=== PATIENT | male | born 1945 | race Caucasian/White ===

== ENCOUNTER → 2020-10-06 01:51 | Outpatient (CLI) | payer OTHER, SELFPAY ==
[2020-10-06 20:12] LABS: SARS-CoV-2 RNA PCR Negative
== END ==
PROVIDERS: PCP Internal Medicine; Visit Provider Urology
DX: Z01.812 Encounter for preprocedural laboratory examination (principal); Z20.822 Contact with and (suspected) exposure to COVID-19
CPT/HCPCS: C9803; U0003; U0005

== ENCOUNTER 2020-10-06 08:19 | Outpatient (CLI) | payer OTHER, SELFPAY ==
--- NOTE | 2020-10-06 15:30 | ECG_ITS ---
Measurements Intervals [place] Rate: 61 P: 66 TN: 206 QRS: 42 QRSD: 114 T: 42 QT: 394 QTc: 399 Interpretive Statements SINUS RHYTHM DELAYED PRECORDIAL R/S TRANSITION MINIMAL Q WAVES- INFERIOR LEADS BASELINE ARTIFACT- I, III, AVR, AVL, AVF, V1 BORDERLINE ECG Electronically Signed On 10-06-2020 8:32:12 CDT by Robert Bautista D.O.
== END 2020-10-06 08:20 | disposition home or self-care (01) ==
PROVIDERS: PCP Internal Medicine; Visit Provider Urology
DX: Z01.818 Encounter for other preprocedural examination (principal); E78.00 Pure hypercholesterolemia, unspecified
CPT/HCPCS: 93005

== ENCOUNTER 2020-10-10 15:26 | Observation (INO) | payer OTHER, SELFPAY ==
--- NOTE | 2020-10-02 07:19 | PM.IMHP ---
H&P: HPI History of Present Illness Date/Time: 10/02/20 07:19 A 74-year-old gentleman with a longstanding history of prostatism. He is status post Urolift July 2017 with a transient response. Now, his obstructive in irritable voiding symptoms have returned and persist despite combination therapy with both tamsulosin and finasteride. After discussion of additional options, including ongoing medical therapy, other minimally invasive procedure such as laser prostatectomy and Rezum, he has elected for TURP. He is aware of the risk of this procedure including, but not limited to, postoperative hematuria, persistent voiding symptoms urinary incontinence and erectile dysfunction. Chief Complaint: Difficulty with urination Review of Systems Cardiovascular: Cardiovascular: Denies chest pain, Denies lightheadedness, Denies palpitations and Denies dyspnea Respiratory: Respiratory: Denies dyspnea Gastrointestinal: Gastrointestinal: Denies diarrhea, Denies nausea and Denies vomiting Genitourinary: Genitourinary: Denies hematuria and Denies dysuria Endocrine: Endocrine: Denies palpitations [facility] Social History Social History Smoking status: Former smoker Second hand tobacco smoke exposure: No Smoking end date: 07/11/98 Alcohol intake: current Substance use: never Meds Home Medications and Allergies Home Medications Medication Instructions Recorded Confirmed Type blood sugar diagnostic #10 each 07/10/19 05/20/20 History lancets #50 each 07/10/19 05/20/20 History sildenafil 100 mg tablet 100 mg PO DAILY PRN #6 tablet 07/31/19 05/20/20 Rx finasteride 5 mg tablet 5 mg PO DAILY #90 tablet 04/28/20 05/20/20 Rx simvastatin 40 mg tablet 40 mg PO DAILY #90 tablet 04/28/20 05/20/20 Rx tamsulosin 0.4 mg capsule 0.4 mg PO DAILY #90 cap 04/28/20 05/20/20 Rx Allergies Allergy/AdvReac Type Severity Reaction Status Date / Time No Known Allergies Allergy Verified 05/20/20 09:57 Exam Const: General: no acute distress Resp: Effort & Inspection: normal respiratory effort GI: Inspection: non-distended GI Palp: No abdominal tenderness and No Guarding due to palpation present (GI) Auscultation: normal bowel sounds Assessment and Plan Assessment and plan (1) BPH without urinary obstruction: Code(s): N40.0 - Benign prostatic hyperplasia without lower urinary tract symptoms Status: Acute Assessment and Plan: TURP
[2020-10-02 15:12] VITALS: BMI 27.3
[2020-10-09] VITALS (14 sets, daily range): BP systolic 94–133; BP diastolic 52–78; PULSE 63–84; RESP 10–25; TEMP 35.7–36.7; O2SAT 95–100; BMI 28.5
--- NOTE | 2020-10-09 06:55 | WPDHPUPDATE1 ---
History and Physical Update Update Date/Time: 10/09/20 06:55 History and Physical has been reviewed, including an updated exam of the patient. There are NO changes in the patient's condition. Risks, benefits, and alternatives have been discussed and questions answered. Patient agrees to proceed with procedure.
[2020-10-09] MEDS: LACTATED RINGERS 1,000 ML 30 ML IV CONT ×2 (07:59→10:53)
[2020-10-09 08:03] LABS: Glucose Point of Care 103 (65-105)
--- NOTE | 2020-10-09 08:13 | WPDANESEPPF ---
Anes - Initial Pre Proc Eval Procedure: Operation Date: 10/09/20 09:00 Proposed Procedures p Trans Urethral Resection Prostate - Karl Yoo MD Date/Time: 10/09/20 08:13 Surgeon: Karl Yoo MD Pre Op Diagnosis: BPH Patient Data Age: 74 Gender: M Height: 5 ft 9 in Weight: 84 kg Allergies Allergy/AdvReac Type Severity Reaction Status Date / Time No Known Allergies Allergy Verified 10/02/20 15:08 Home Medications Medication Instructions Recorded Confirmed Type blood sugar diagnostic #10 each 07/10/19 05/20/20 History lancets #50 each 07/10/19 05/20/20 History sildenafil 100 mg tablet 100 mg PO DAILY PRN #6 tablet 07/31/19 10/02/20 Rx finasteride 5 mg tablet 5 mg PO DAILY #90 tablet 04/28/20 10/02/20 Rx simvastatin 40 mg tablet 40 mg PO DAILY #90 tablet 04/28/20 10/02/20 Rx tamsulosin 0.4 mg capsule 0.4 mg PO DAILY #90 cap 04/28/20 10/02/20 Rx Laboratory Tests 10/09/20 07:57 POC Capillary Glucose 103 mg/dl mg/dl (65-105) Patient hx anesthesia problems: none Family hx anesthesia problems: none PMFSH Past Medical History Medical History (Updated 10/09/20 @ 08:00 by Michael Calvin MD) Prediabetes Type 2 diabetes mellitus without complications Social History Social History Smoking packs per day: 1 Smoking cigarettes per day: 20.0 Years smoked: 38 Smoking pack-years: 38.00 Smoking status: Former smoker Second hand tobacco smoke exposure: No Smoking end date: 07/11/98 Alcohol intake: current Drinks per week: 21 Substance use: never Living arrangements: with family Additional living arrangements comments: Spiritual care concerns: No Anes - Eval Final PreProcedure Day of Procedure 10/09/20 08:13 Patient weight: obese Heart: regular rate and rhythm Lungs: clear to auscultation Airway: Mallampati scale class II Neurological: alert and oriented Last oral intake: >/= 8 hours ASA classification: III Emergent: no Anesthetic plan: proceed Anesthesia type and monitoring: general LMA and standard monitoring Informed Consent: The patient's anesthetic plan and its attendant risks and benefits were discussed with the patient/family/POA. Questions were solicited and answers provided to the satisfaction of the patient/family/POA.
[2020-10-09] MEDS: ceFAZolin 2 GM/D5W 50 ML 2 GM/50 ML BAG IVPB (08:49)
[2020-10-09] MEDS: LIDOCAINE HCL 2% GEL UROJET 10 ML PKG MUCOUS MEM (09:03)
[2020-10-09 11:02] LABS: Glucose Point of Care 129 (65-105)
--- NOTE | 2020-10-09 11:13 | PM.PROC ---
Procedure Note - Detailed Date of procedure: 10/09/20 Pre-op diagnosis: BPH Post-op diagnosis: same Procedure performed: TURP Description of procedure: The patient was brought to the operative suite where he is prepped and draped in routine sterile fashion while in the dorsal lithotomy position after the uneventful induction of a general LMA anesthetic. A 27 Bangladeshi resectoscope sheath was placed into his bladder. He had no urethral strictures. The patient had trilobar hyperplasia with a large median lobe. The bladder itself was endoscopically normal, showing no mucosal hyperemia, intravesical neoplasm or foreign bodies. There was a single, orthotopic ureteral orifice bilaterally. These orifices were identified and preserved throughout the remainder of the procedure. Attention was first turned to resection of the median lobe. This resection was undertaken from the bladder neck to the verumontanum and carried out until the transverse fibers of the bladder neck were identified. The left lateral lobe was then resected starting at the 6 o'clock position, working counter clockwise to the 12 o'clock position. Again, resection was carried out from the bladder neck to the verumontanum until the capsular fibers of the prostate were identified. The right lateral lobe was resected in a similar fashion starting at the 6 o'clock position working clockwise to the 12 o'clock position and carried out until the capsular fibers of the prostate were identified. Apical tissue was then circumferentially resected. All chips were evacuated from the bladder using an Visiogen evacuator. Hemostasis was obtained with electric cautery. The ureteral orifices were again inspected and found to be without injury. Estimated blood loss throughout this procedure was 200cc. The patient was taken to recovery room having tolerated this well. Anesthesia: GLMA Surgeon: Karl Yoo MD Estimated blood loss (mL): 200 Drains: Yes (24F hematuria catheter) Packing: No Pathology: yes Complications: No immediate complications Condition: stable Disposition: PACU
--- NOTE | 2020-10-09 12:04 | SUR.PHASEI ---
Dr. Yoo asked RN to monitor him a little longer in PACU so he can see the CBI before taking him to his room.
--- NOTE | 2020-10-09 12:51 | ADMGEN ---
This patient, Almas Elias, was admitted to Medical Room 240-01. Patient/family oriented to hospital policies and general routines including ID bracelet, bed and alarms, visiting hours, pain management, procedures, bathroom and other care routines, personal items, smoking policy, room service/diet, and visiting hours. Information on how to activate the Rapid Response Team has been discussed. Patient/Family are encouraged to report perceived risks to care and to ask questions if they do not understand what they are told or what they should do.
[2020-10-09] MEDS: DEXTROSE 5%/LACTATED RINGERS 1,000 ML 125 ML IV CONT (13:04)
[2020-10-09] MEDS: DOCUSATE SODIUM 100 MG CAPSULE PO (16:54)
[2020-10-09] MEDS: HYDROcodone/acetaminophen (*CRX) 5-325 MG TABLET 1 TAB PO (21:05)
[2020-10-10 02:00] VITALS: BP 110/59; PULSE 73; RESP 20; TEMP 36.4; O2SAT 98
[2020-10-10 05:35] LABS: Hematocrit 27.8 % (42.0-52.0); Hemoglobin 9.1 g/dL (14.0-18.0)
[2020-10-10 06:00] VITALS: BP 106/60; PULSE 68; RESP 20; TEMP 36.1; O2SAT 98
[2020-10-10 06:00] LABS: Anion Gap 3 mmol/L (8-16); Blood Urea Nitrogen 12 mg/dL (9-20); Carbon Dioxide 28 mmol/L (22-30); Chloride 105 mmol/L (98-107); Estimated CRCL calculation 66 ml/min; Estimated Glomerular Filt Rate > 60; Glucose 122 mg/dL (75-110); Potassium 3.9 mmol/L (3.4-5.0); Sodium 136 mmol/L (137-145)
--- NOTE | 2020-10-10 06:28 | PC.NURSE ---
DR MCKINNON HERE, CBI CLAMPED OFF
--- NOTE | 2020-10-10 06:29 | WPDUROPN2 ---
Progress Note: A&P Assessment and Plan (1) BPH without urinary obstruction: Code(s): N40.0 - Benign prostatic hyperplasia without lower urinary tract symptoms Status: Acute Assessment and Plan: Doing well POD #1 TURP Stop CBI Possible voiding trial later today Subjective Subjective Date/Time Seen: 10/10/20 06:29 POD #1: TURP Comfortable, urine clear on slow CBI Review of Systems Cardiovascular: Cardiovascular: Denies chest pain, Denies lightheadedness, Denies palpitations and Denies dyspnea Respiratory: Respiratory: Denies dyspnea Gastrointestinal: Gastrointestinal: Denies diarrhea, Denies nausea and Denies vomiting Genitourinary: Genitourinary: Denies hematuria and Denies dysuria Endocrine: Endocrine: Denies palpitations Exam Const: General: no acute distress Resp: Effort & Inspection: normal respiratory effort GI: Inspection: non-distended GI Palp: No abdominal tenderness and No Guarding due to palpation present (GI) Auscultation: normal bowel sounds Urinary Catheter: Urinary Catheter: patent and draining and urine clear Objective Data Vital Signs Vital Signs: Vital Signs - 24 hr 10/09/20 07:00 10/09/20 10:53 10/09/20 11:05 Temperature 96.8 F L 97.3 F L Pulse Rate 63 78 72 Respiratory Rate 16 10 L 15 Blood Pressure 133/74 121/78 117/77 Pulse Oximetry 100 97 98 10/09/20 11:20 10/09/20 11:35 10/09/20 11:50 Temperature Pulse Rate 74 71 74 Respiratory Rate 24 H 25 H 18 Blood Pressure 113/73 111/66 107/65 Pulse Oximetry 95 96 97 10/09/20 12:05 10/09/20 12:20 10/09/20 12:45 Temperature 96.3 F L Pulse Rate 73 78 73 Respiratory Rate 20 20 16 Blood Pressure 104/67 103/66 94/56 L Pulse Oximetry 96 96 99 10/09/20 13:00 10/09/20 13:30 10/09/20 14:30 Temperature 96.5 F L 96.5 F L 96.8 F L Pulse Rate 78 80 63 Respiratory Rate 16 16 16 Blood Pressure 104/52 L 104/56 L 108/54 L Pulse Oximetry 98 100 99 10/09/20 18:00 10/09/20 22:00 10/10/20 02:00 Temperature 97.1 F L 98.1 F 97.5 F L Pulse Rate 83 84 73 Respiratory Rate 16 20 20 Blood Pressure 95/60 L 113/60 110/59 L Pulse Oximetry 97 99 98 Intake/Output Intake/Output: Intake & Output 10/07/20 10/08/20 10/09/20 10/10/20 23:59 23:59 23:59 23:59 Intake Total 2290 500 Output Total 98341 500 Balance -60090 0 Meds/Results Medications: Active Medications Generic Name Dose Route Start Last Admin Trade Name Freq PRN Reason Stop Dose Admin Hydrocodone Bitart/Acetaminophen 1 tab 10/09/20 12:36 10/09/20 21:05 Hydrocodone/Acetaminophen (*Crx) 5-325 Mg Tablet PO 1 tab Q4H PRN Administration Pain Rated 1-6 Cephalexin HCl 500 mg 10/10/20 09:00 Cephalexin 500 Mg Capsule PO QID MIGUELITO Docusate Sodium 100 mg 10/09/20 17:00 10/09/20 16:54 Docusate Sodium 100 Mg Capsule PO 100 mg BID MIGUELITO Administration Hyoscyamine 0.125 mg 10/09/20 12:36 Hyoscyamine Sulfate 0.125 Mg Tablet SUBLINGUAL Q6H PRN Bladder Spasm Morphine Sulfate 2 mg 10/09/20 12:36 Morphine Sulfate (*Crx) 2 Mg/Ml Inj IV PUSH Q2H PRN Pain Rated 7-10 Naloxone HCl 0.1 mg 10/09/20 12:36 Naloxone Hcl 0.4 Mg/Ml Vial IV PUSH Q2M PRN Opiate Reversal Ondansetron HCl 4 mg 10/09/20 12:36 Ondansetron Inj 4 Mg/2 Ml Vial IV PUSH Q12H PRN Nausea And Vomiting Simvastatin 40 mg 10/10/20 09:00 Simvastatin 20 Mg Tablet PO DAILY [facility] Labs Labs: Laboratory Results - last 24 hr 10/09/20 10/09/20 10/10/20 07:57 11:00 04:46 Hgb 9.1 L Hct 27.8 L Sodium Potassium Chloride Carbon Dioxide Anion Gap BUN Creatinine Estim Creat Clear Calc Estimated GFR Glucose POC Capillary Glucose 103 129 H Calcium 10/10/20 04:46 Hgb Hct Sodium 136 L Potassium 3.9 Chloride 105 Carbon Dioxide 28 Anion Gap 3 L BUN 12 Creatinine 0.80 Estim Creat Clear Calc 66 Estimated GFR > 60 G
--- NOTE | 2020-10-10 07:59 | WPDANESPN ---
Anes - Prog Note Post-Op Date/Time: 10/10/20 07:59 Cardiovascular status: normal Respiratory status: normal Airway patency: baseline Mental status: baseline Post-Op hydration status: normal Vital Signs: Last Vital Signs Temp 36.1 C L 10/10/20 06:00 Pulse 68 10/10/20 06:00 Resp 20 10/10/20 06:00 BP 106/60 10/10/20 06:00 Pulse Ox 98 10/10/20 06:00 Pain Score (VAS): 0 I/O: Intake & Output 10/09/20 10/09/20 10/10/20 15:59 23:59 07:59 Intake Total 900 1390 1300 Output Total 44494 2575 500 Balance -9350 -1185 800 Laboratory Tests 10/10/20 04:46 10/10/20 04:46 10/09/20 10/09/20 10/10/20 07:57 11:00 04:46 Hgb 9.1 L Hct 27.8 L Sodium Potassium Chloride Carbon Dioxide Anion Gap BUN Creatinine Estim Creat Clear Calc Estimated GFR Glucose POC Capillary Glucose 103 129 H Calcium 10/10/20 04:46 Hgb Hct Sodium 136 L Potassium 3.9 Chloride 105 Carbon Dioxide 28 Anion Gap 3 L BUN 12 Creatinine 0.80 Estim Creat Clear Calc 66 Estimated GFR > 60 Glucose 122 H POC Capillary Glucose Calcium 8.0 L Post-procedural complaints: none Patient Feedback: Patient satisfied with anesthetic care.
[2020-10-10] MEDS: CEPHALEXIN 500 MG CAPSULE PO ×4 (08:00→20:42)
[2020-10-10] MEDS: SIMVASTATIN 20 MG TABLET 40 MG PO (08:00)
[2020-10-10] MEDS: DOCUSATE SODIUM 100 MG CAPSULE PO (08:00)
[2020-10-10 10:00] VITALS: BP 106/57; PULSE 73; RESP 16; TEMP 36.1; O2SAT 96
[2020-10-10 14:00] VITALS: BP 103/59; PULSE 72; RESP 16; TEMP 36.2; O2SAT 98
[2020-10-10 18:00] VITALS: BP 110/60; PULSE 78; RESP 16; TEMP 36.2; O2SAT 100
[2020-10-10 22:00] VITALS: BP 111/58; PULSE 76; RESP 20; TEMP 36.7; O2SAT 99
[2020-10-11 02:00] VITALS: BP 101/55; PULSE 68; RESP 20; TEMP 36.4; O2SAT 98
[2020-10-11 06:00] VITALS: BP 118/58; PULSE 71; RESP 18; TEMP 36.7; O2SAT 97
[2020-10-11] MEDS: DOCUSATE SODIUM 100 MG CAPSULE PO (08:18)
[2020-10-11] MEDS: CEPHALEXIN 500 MG CAPSULE PO (08:18)
[2020-10-11] MEDS: SIMVASTATIN 20 MG TABLET 40 MG PO (08:18)
[2020-10-11 09:43] VITALS: BP 97/54; PULSE 73; RESP 16; TEMP 36.3; O2SAT 100
--- NOTE | 2020-10-21 07:31 | PM.DS ---
DS: Admitting Diagnosis Admitting Diagnosis Admitting Diagnosis: BPH DS: Discharge Diagnosis Discharge Diagnosis (1) BPH without urinary obstruction: Code(s): N40.0 - Benign prostatic hyperplasia without lower urinary tract symptoms Status: Acute DS: Summary Hospital Course Hospital Course: This patient with longstanding prostatism refractory for medical management was admitted on the morning of his planned TURP. The procedure was undertaken on that same day in an uneventful fashion. His post-operative course was, likewise, uneventful. On the evening of the procedure he was tolerating a diet. On POD#1 his urine pink so voiding trial was deferred until the next morning. The urine remained clear and, therefore, the catheter was removed late morning. The patient was observed for several hours, until he demonstrated he could void effectively without significant hematuria. He was discharged with careful instruction on limiting physical activity x2 weeks and plans to f/ in 2-3 weeks. At discharge he was comfortable and tolerating a diet. Time Spent with Patient Time attestation: Total time spent providing and/or coordinating discharge services: 15min. Exam Const: General: no acute distress Resp: Effort & Inspection: normal respiratory effort GI: Inspection: non-distended GI Palp: No abdominal tenderness and No Guarding due to palpation present (GI) Auscultation: normal bowel sounds DS: Data Data Completed and Pending Completed studies during hospitalization: Pending at discharge 10/09/20 09:16 Surgical [PTH] Routine Discharge Plan Discharge Attending physician on discharge: Karl Yoo Discharging Clinician: Karl Yoo Anticipated Discharge Date/Time: 10/11/20 11:00 Patient Disposition: Home, Self-Care Activity: may shower Diet: regular Discharge Instructions: Satat @0700, if urine clear: fill bladder with 250cc and remove. Discharge 0115-0932 Tuesday if voiding. 1) Activity: No lifting/straining >15lbs. x2 weeks. 2) Diet: Resume normal pre-admission diet. 3) Follow-up: 2-3 weeks / call office for appointment ([phone]). Contact refrigeration brazer/solderer doctor (Dr. Ziyad Vale) if unable to discharge, for any reason. Patient Instructions: Antibiotic Form Stand Alone Forms: General Discharge Information Follow-up/Referrals: Karl Yoo MD [Physician] - Discharge Medications: New hydrocodone-acetaminophen 5-325 mg tablet 1 - 2 tablet PO Q6H PRN (Reason: pain) Qty: 20 RF: 0 sulfamethoxazole-trimethoprim 800-160 mg tablet 1 tablet PO Q12H Qty: 6 RF: 0 docusate sodium [Colace] 100 mg capsule 100 mg PO DAILY Qty: 30 RF: 0 Continued sildenafil 100 mg tablet 100 mg PO DAILY PRN (Reason: sexual activity) Qty: 6 RF: 6 simvastatin 40 mg tablet 40 mg PO DAILY Qty: 90 RF: 4 Discontinued finasteride 5 mg tablet 5 mg PO DAILY Qty: 90 RF: 4 tamsulosin 0.4 mg capsule 0.4 mg PO DAILY Qty: 90 RF: 4 No Action (DME) Contour Test Strips Strip See Rx Instructions .ROUTE .MEDSUPPLY Qty: 10 RF: 0 (DME) lancets [Microlet Lancet] Misc See Rx Instructions .ROUTE .MEDSUPPLY Qty: 50 RF: 0 Date of admission: 10/10/20 15:26 Primary Care Provider: Almas Calvin Admitting Provider: Karl oYo Attending physician on admission: Karl Yoo Condition: Stable
== END 2020-10-11 11:00 | disposition home or self-care (01) ==
LOC: ANHSURGERY 15:27 → ANH2MED 15:27
PROVIDERS: Admitting Provider Urology; PCP Internal Medicine; Visit Provider Urology
PROC: 0VT08ZZ Resection of Prostate, Via Natural or Artificial Opening Endoscopic (ICD-10-PCS; CPT 52601; principal; 2020-10-09 09:00)
DX: N40.0 Benign prostatic hyperplasia without lower urinary tract symptoms (principal); Z87.891 Personal history of nicotine dependence
CPT/HCPCS: 52601; 36415; 80048; 85014; 85018; 88305; 88342; 93005; A9270; C1758; C1769; C1887; C9803; G0378; J0690; J1100; J2405; J2704; J3010; J7120; J7121; U0003; U0005

== ENCOUNTER 2020-10-27 10:31 | Outpatient (CLI) | payer OTHER, SELFPAY ==
--- NOTE | ~2020-10-27 | CT_ITS ---
EXAMINATION: CT abdomen pelvis w con DATE: 10/27/2020 10:59 INDICATION: Prostate cancer restaging TECHNIQUE: Computed tomography (CT) of the abdomen and pelvis was performed with 100 cc Omnipaque 350 intravenous contrast. Automated exposure control and iterative reconstruction technique were employe d. Exam dose: 545.97 mGy-cm total exam DLP. COMPARISON: 08/08/2015 CT abdomen pelvis FINDINGS: Calcified middle lobe pulmonary granuloma. No infiltrate or consolidation the lung bases. Normal heart size. No pericardial or pleural effusion. Small sliding hiatal hernia. The liver, gallbladder, bile ducts, spleen, pancreas, pancreatic duct, and adrenal glands and kidneys appear normal. There is extensive calcification of the abdominal aorta but no aneurysm. No intraperitoneal or retroperitoneal or pelvic lymphadenopathy or ascites. There is irregular prostate enlargement, irregularly impressing the base of the urinary bladder, whic h may be consistent with residual prostate carcinoma. Urinary bladder neoplasm is not excluded. There is diffuse moderate thickening of the urinary bladder wall, likely secondary to bladder outlet obstruction due to prostate enlargement. Diffuse idiopathic skeletal hyperostosis of the thoracic spine. Multilevel degenerative disc disease of the lumbar spine No suspicious osteolytic or osteoblastic lesions Bilateral hip osteoarthritis, greater on the right. IMPRESSION: Enlargement irregularity and prostate gland suggesting prostate cancer Diffuse thickening of the urinary bladder wall and irregularity at the bladder base, likely secondary to bladder outlet obstruction and prostate tumor; superimposed bladder neoplasm is not definitively excluded Small sliding hiatal hernia Reviewed, dictated and finalized at [facility]. Reviewed, dictated and finalized at location [facility]. IMPRESSION: Enlargement irregularity and prostate gland suggesting prostate ca ncer Diffuse thickening of the urinary bladder wall and irregularity at the bladder base, likely secondary to bladder outlet obstruction and prostate tumor; superi mposed bladder neoplasm is not definitively excluded Small sliding hiatal hernia
--- NOTE | ~2020-10-27 | NM_ITS ---
EXAMINATION: NM bone scan whole body DATE: 10/27/2020 13:58 INDICATION: Prostate cancer TECHNIQUE: 25 mCi Tc-99m HDP was administered intravenously. Delayed whole-body scintigrams were obt ained. COMPARISON: CT abdomen and pelvis dated 10/27/2020 FINDINGS: Typical distribution of mild likely degenerative joint centered uptake at the bilateral acromioclavic ular joints, elbows, bilateral hands and wrists and feet and ankles. 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 No other foci of suspicious bone uptake to sugg est metastatic disease. IMPRESSION: 1. Typical pattern of scattered mild likely degenerative joint centered uptake in the bilateral upper and lower extremities. No atypical foci of bone uptake to suggest metastatic disease. Reviewed, dictated and finalized at location [facility]. IMPRESSION: 1. Typical pattern of scattered mild likely degenerative joint centered uptake in the bilateral upper and lower extremities. No atypical foci of bone uptake t o suggest metastatic disease.
== END 2020-10-27 10:32 | disposition home or self-care (01) ==
PROVIDERS: PCP Internal Medicine; Visit Provider Urology
DX: C61 Malignant neoplasm of prostate (principal); K44.9 Diaphragmatic hernia without obstruction or gangrene
CPT/HCPCS: 74177; 78306; A9561; Q9967

== ENCOUNTER 2021-05-06 06:42 | Outpatient (CLI) | payer OTHER, SELFPAY ==
--- NOTE | ~2021-05-06 | MR_ITS ---
EXAMINATION: MR pelvis wo/w con INDICATION: Prostate cancer TECHNIQUE: 3D Axial T2 Cube, Axial 2D FIESTA, Coronal SSFSE ARC, Axial and Coronal 2D FIESTA FatSat, Axial T2 FS, Axial SSFSE BH ARC, Axial 3D DualEcho BH, Axial SSFSE-IR Jona, Axial DWI b=600, pre and d ynamic postcontrast Axial LAVA ARC, WATER:POST Cor LAVA-FLEX COMPARISON: 10/27/2020 CONTRAST: Multihance, 17 cc FINDINGS: The prostate is enlarged. There appears to be a 2.5 cm T2 hypointense nodule in the periphe ral zone of the prostate right of midline with associated restricted diffusion. This appears to abut the capsule of the prostate without extraprostatic extension. A central defect in the prostate likely reflects prior TURP. Spacer material is noted between the rectum and prostate. No pathologically enl arged pelvic lymph nodes are identified. The pelvic viscera are normal. IMPRESSION: 1. Abnormal signal intensity in the right peripheral zone of the prostate which may reflect patient's known prostate cancer. Reviewed, dictated and finalized at location [facility].
[2021-05-06 07:18] LABS: Estimated Glomerular Filt Rate > 60
== END 2021-05-06 06:43 | disposition home or self-care (01) ==
LOC: ANHIMG 06:43
PROVIDERS: PCP Internal Medicine; Visit Provider Radiology Radiation Oncology
DX: C61 Malignant neoplasm of prostate (principal)
CPT/HCPCS: 72197; A9577

== ENCOUNTER 2021-09-14 10:32 | Outpatient (CLI) | payer OTHER, SELFPAY ==
[2021-09-14 11:40] LABS: Prostate Specific Antigen 0.8 ng/mL (< OR = 4.0)
== END 2021-09-14 10:33 | disposition home or self-care (01) ==
LOC: ANHLAB 10:34
PROVIDERS: PCP Internal Medicine; Visit Provider Urology
DX: C61 Malignant neoplasm of prostate (principal)
CPT/HCPCS: 36415; 84153

== ENCOUNTER 2021-12-28 10:23 | Outpatient (CLI) | payer OTHER, SELFPAY ==
[2021-12-28 12:18] LABS: Prostate Specific Antigen 0.4 ng/mL (< OR = 4.0)
== END 2021-12-28 10:24 | disposition home or self-care (01) ==
PROVIDERS: PCP Internal Medicine; Visit Provider Urology
DX: C61 Malignant neoplasm of prostate (principal)
CPT/HCPCS: 36415; 84153

== ENCOUNTER → 2022-02-09 12:01 | Outpatient (REF) | payer OTHER, SELFPAY | LOC: ANHLAB 12:01 | PROVIDERS: PCP Family Medicine; Visit Provider Nurse Practitioner | DX: D49.2 Neoplasm of unspecified behavior of bone, soft tissue, and skin (principal) | CPT/HCPCS: 88305 ==

== ENCOUNTER 2022-04-09 10:40 | Outpatient (CLI) | payer OTHER, SELFPAY ==
[2022-04-09 11:48] LABS: Prostate Specific Antigen 0.3 ng/mL (< OR = 4.0)
== END 2022-04-09 10:41 | disposition home or self-care (01) ==
LOC: ANHLAB 10:43
PROVIDERS: PCP Family Medicine; Visit Provider Urology
DX: C61 Malignant neoplasm of prostate (principal)
CPT/HCPCS: 36415; 84153; G0103

== ENCOUNTER 2022-05-14 09:48 | Outpatient (CLI) | payer OTHER, SELFPAY ==
[2022-05-14 19:15] LABS: Basophils Percent Auto 0.4 % (0.2-1.2); Eosinophils Absolute Auto 0.2 K/mm3 (0-0.3); Hematocrit 40.8 % (42.0-52.0); Immature Granulocyte Absolute 0.02 K/mm3 (0.00-0.031); Immature Granulocyte Percent A 0.4 % (0-0.5); Lymphocytes Absolute Auto 0.67 K/mm3 (0.9-3.2); Lymphocytes Percent Auto 13.5 % (18.3-44.2); Mean Corpuscular HGB Conc 31.9 g/dl (32-36); Mean Corpuscular Volume 87.9 fl (80-100); Mean Platelet Volume 11.5 fl (7.4-10.4); Monocytes Absolute Auto 0.5 K/mm3 (0.1-0.6); Monocytes Percent Auto 10.1 % (2.6-8.5); Neutrophils Absolute Auto 3.6 K/mm3 (1.3-6.7); Neutrophils Percent Auto 72.6 % (45.5-73.1); Platelet Count Result 128 k/mm3 (150-375); Red Blood Count 4.64 M/mm3 (4.6-6.20)
[2022-05-14 19:33] LABS: Alanine Aminotransferase 49 U/L (6-50); Albumin Level 4.3 g/dL (3.5-5.1); Alkaline Phosphatase 74 U/L (38-126); Anion Gap 13 mmol/L (8-16); Aspartate Amino Transferase 42 U/L (17-59); Bilirubin,Total 0.4 mg/dL (0.2-1.3); Blood Urea Nitrogen 14 mg/dL (9-20); Carbon Dioxide 24 mmol/L (22-30); Chloride 102 mmol/L (98-107); Cholesterol 125 mg/dL (0-200); Estimated Glomerular Filt Rate > 60; Glucose 109 mg/dL (65-110); HDL Direct 35 mg/dL; Potassium 4.4 mmol/L (3.4-5.0); Sodium 139 mmol/L (137-145); Triglycerides 88 mg/dL (<150)
[2022-05-14 19:44] LABS: LDL Cholesterol Direct 61 mg/dL
[2022-05-14 20:20] LABS: Hemoglobin A1C 5.6 % (<5.7)
== END 2022-05-14 09:49 | disposition home or self-care (01) ==
LOC: ANHGOSHLAB 09:54
PROVIDERS: PCP Family Medicine; Visit Provider Family Medicine
DX: D64.9 Anemia, unspecified (principal); E78.5 Hyperlipidemia, unspecified; Z13.228 Encounter for screening for other metabolic disorders; R73.03 Prediabetes; Z12.11 Encounter for screening for malignant neoplasm of colon
CPT/HCPCS: 36415; 80053; 80061; 83036; 85025

== ENCOUNTER 2022-05-17 11:11 | Outpatient (NON) | payer OTHER, SELFPAY ==
[2022-05-17 19:36] LABS: IFOB Positive Control Positive; Immunochemical Fecal Occult Bl Positive (N)
== END 2022-05-17 11:12 | disposition home or self-care (01) ==
PROVIDERS: PCP Family Medicine; Visit Provider Family Medicine
DX: Z12.11 Encounter for screening for malignant neoplasm of colon (principal)
CPT/HCPCS: 82274

== ENCOUNTER → 2022-05-19 14:07 | Outpatient (CLI) | payer OTHER, SELFPAY ==
--- NOTE | ~2022-05-19 | DEXA_ITS ---
Bone Density Report Name: ANNE CRAIN Age: 76 Sex: Male Ethnicity: White Date of : 1945 Indication: screening for osteoporosis; height loss; cancer; Referring Provider: ALEJANDRA DUMONT Study: Bone densitometry was performed. Exam Date: May 19, 2022 Accession number: [id number] Bone Density: Region BMD T-score Z-score Classification AP Spine (L1-L4) 1.412 2.9 4.0 Normal Femoral Neck (Left) 0.873 -0.4 1.0 Normal Total Hip (Left) 1.145 0.7 1.7 Normal Femoral Neck (Right) 0.923 -0.1 1.4 Normal Total Hip (Right) 1.101 0.4 1.4 Normal Total Hip Mean 1.123 0.6 1.6 Normal World Health Organization criteria for BMD impression classify patients as: Normal (T-score at or above -1.0), Osteopenia (T-score between -1.0 and -2.5), or Osteoporosis (T-score at or below -2.5). 10-year Fracture Risk: FRAX not reported because: All T-scores for Spine Total, Hip Total, Femoral Neck at or above -1.0 Treated for osteoporosis Clinical Information Provided by Patient: Has 3 or more alcoholic drinks per day Is being treated for osteoporosis Has used the following medications: HRT (i.e. estrogen/hormone therapy), hormone therapy for prostate cancer Has the following medical conditions: Cancer Patient maximum height was 70 Does not regularly consume dairy products Drinks caffeinated beverages Impression: The patient has normal bone mass. The patient has risk factors, including: excessive alcohol use. Discussion: It is important to ask patients whether they are taking their medications and to encourage continued and appropriate compliance with their osteoporosis therapies to reduce fracture risk. It is also important to review their risk factors and encourage appropriate calcium and vitamin D intakes, exercise, fall prevention and other lifestyle measures. Follow-Up: Consider repeating this study in 2 years to reassess this patient's status, or sooner if there is some new clinical indication. Reported by: REAGAN on 05/19/2022 2:36:00 PM. Reviewed, dictated and finalized at location [facility]. JENNIFER
== END ==
PROVIDERS: PCP Family Medicine; Visit Provider Nurse Practitioner Adult Health
DX: M85.88 Other specified disorders of bone density and structure, other site (principal)
CPT/HCPCS: 77080

== ENCOUNTER 2022-06-07 07:00 | Outpatient (NON) | payer OTHER, SELFPAY | END 2022-06-07 07:01 | disposition home or self-care (01) | PROVIDERS: PCP Family Medicine; Visit Provider Nurse Practitioner | DX: L70.0 Acne vulgaris (principal) | CPT/HCPCS: 88305 ==

== ENCOUNTER 2022-06-24 00:16 | Day surgery (SDC) | payer OTHER, SELFPAY ==
[2022-06-11 15:15] VITALS: BMI 28.8
--- NOTE | 2022-06-24 09:07 | P.PNAN_ITS ---
Anes - Initial Pre Proc Eval Procedure: Operation Date: 06/24/22 10:15 Proposed Procedures p Colonoscopy - Ric Gomez MD Date/Time: 06/24/22 09:07 Surgeon: Ric Gomez MD Pre Op Diagnosis: hemoccult positive stool Patient Data Age: 76 Gender: M Height: 1.73 m Weight: 86 kg Allergies Allergy/AdvReac Type Severity Reaction Status Date / Time No Known Allergies Allergy Verified 06/24/22 09:12 Home Medications Medication Instructions Recorded Confirmed Type simvastatin 40 mg tablet 40 mg PO DAILY #90 tabs 07/29/21 06/11/22 Rx lancets (Microlet Lancet) #50 ea 05/26/22 Rx Patient hx anesthesia problems: none Family hx anesthesia problems: none Results Review: All pre-operative results and documents have been reviewed as part of the pre- operative evaluation. [facility] Past Medical History Medical History (Updated 06/24/22 @ 09:36 by Ric Gomez MD) Basal cell carcinoma BPH without urinary obstruction Osteoarthritis of knee, unspecified Other and unspecified hyperlipidemia Overweight Prediabetes Prostate cancer Type 2 diabetes mellitus without complications Uncomplicated alcohol dependence Social History Social History Smoking packs per day: 1 Smoking cigarettes per day: 20.0 Years smoked: 30 Smoking pack-years: 30.00 Smoking status: Former smoker Tobacco type: cigarettes Second hand tobacco smoke exposure: No Alcohol intake: current Drinks per week: 21 Alcohol use details: occasionally Substance use: never Substance use type: does not use Lack of Transportation: No Lack of Food: Never True Current Housing: I Have Housing Concerned About Future Housing: No Difficulty Paying Gas/Electric Bills: No Difficulty Paying for Meds: No Currently Unemployed: No Education: Decline to Answer Difficulty w/ Childcare or Family Care: No Living arrangements: with family Additional living arrangements comments: Spiritual care concerns: No Anes - Eval Final PreProcedure Day of Procedure 06/24/22 09:07 Patient weight: obese Heart: regular rate and rhythm Lungs: clear to auscultation Airway: Mallampati scale class II Neurological: alert and oriented Last oral intake: >/= 8 hours ASA classification: III Emergent: no Anesthetic plan: proceed Anesthesia type and monitoring: general GIVS and standard monitoring Results Review: All pre-operative results and documents have been reviewed as part of the pre-operative evaluation. Informed Consent: The patient's anesthetic plan and its attendant risks and benefits were discussed with the patient/family/POA. Questions were solicited and answers provided to the satisfaction of the patient/family/POA.
[2022-06-24 09:13] VITALS: BP 113/74; PULSE 71; RESP 18; TEMP 36.3; O2SAT 96
[2022-06-24] MEDS: LACTATED RINGERS 1,000 ML 150 ML IV CONT (09:25)
--- NOTE | 2022-06-24 09:35 | PM.HPGS ---
History of Present Illness History of Present Illness Consent: Risks, benefits, and alternatives have been discussed and questions answered. Patient agrees to proceed with procedure. Chief complaint: hemoccult positive stool Narrative: Almas Elias is a 76 year old male Referred for colonoscopy because of finding of occult blood in stool test. Patient denies any obvious blood in his stools. Patient reports his bowel habits are normal. He denies abdominal pain. He has had no bleeding. Patient reports 1 year ago was found to have prostate cancer which has now been treated. He did undergo radiation therapy for this. Review of Systems Review of Systems: Review of systems noncontributory. [facility] Past Medical History Medical History (Updated 06/24/22 @ 09:36 by Ric Gomez MD) Basal cell carcinoma BPH without urinary obstruction Osteoarthritis of knee, unspecified Other and unspecified hyperlipidemia Overweight Prediabetes Prostate cancer Type 2 diabetes mellitus without complications Uncomplicated alcohol dependence Social History Social History Smoking packs per day: 1 Smoking cigarettes per day: 20.0 Years smoked: 30 Smoking pack-years: 30.00 Smoking status: Former smoker Tobacco type: cigarettes Second hand tobacco smoke exposure: No Alcohol intake: current Drinks per week: 21 Alcohol use details: occasionally Substance use: never Substance use type: does not use Lack of Transportation: No Lack of Food: Never True Current Housing: I Have Housing Concerned About Future Housing: No Difficulty Paying Gas/Electric Bills: No Difficulty Paying for Meds: No Currently Unemployed: No Education: Decline to Answer Difficulty w/ Childcare or Family Care: No Living arrangements: with family Additional living arrangements comments: Spiritual care concerns: No Meds Home Medications and Allergies Home Medications Medication Instructions Recorded Confirmed Type simvastatin 40 mg tablet 40 mg PO DAILY #90 tabs 07/29/21 06/11/22 Rx lancets (Microlet Lancet) #50 ea 05/26/22 Rx Allergies Allergy/AdvReac Type Severity Reaction Status Date / Time No Known Allergies Allergy Verified 06/24/22 09:12 Vital Signs Vital Signs - 24 hr 06/24/22 09:13 Temperature 97.3 F L Pulse Rate 71 Respiratory Rate 18 Blood Pressure 113/74 Pulse Oximetry 96 Oxygen Delivery Room Air Exam Narrative: Physical exam reveals patient to be alert. Vital signs stable. HEENT exam is unremarkable. Patient is anicteric. Lungs are clear to auscultation and percussion. Heart is without murmur or extra sounds. Abdomen bowel sounds are present soft nontender with no organomegaly. Digital external rectal exam is normal. Assessment and Plan Assessment and plan (1) Occult blood in stools: Code(s): R19.5 - Other fecal abnormalities Status: Acute Assessment and Plan: Patient with finding of occult blood in stool sample. Plan for colonoscopy to evaluate more thoroughly. (2) Prostate cancer: Code(s): C61 - Malignant neoplasm of prostate Status: Acute Assessment and Plan: Patient has a history of prostate carcinoma for which she has received radiation therapy. This raises the possibility that radiation has irritated the colon. Further recommendations may be given after endoscopy.
[2022-06-24 10:23] VITALS: BP 120/72; PULSE 74; RESP 15; O2SAT 95
[2022-06-24 10:33] VITALS: BP 125/84; PULSE 69; RESP 20; O2SAT 97
[2022-06-24 10:43] VITALS: BP 140/74; PULSE 70; RESP 18; O2SAT 98
== END 2022-06-24 10:57 | disposition home or self-care (01) ==
PROVIDERS: PCP Family Medicine; Visit Provider Internal Medicine Gastroenterology
PROC: 0DJD8ZZ Inspection of Lower Intestinal Tract, Via Natural or Artificial Opening Endoscopic (ICD-10-PCS; CPT 45378; principal; 2022-06-24 10:15)
DX: R19.5 Other fecal abnormalities (principal); D12.0 Benign neoplasm of cecum; K64.8 Other hemorrhoids; Z85.46 Personal history of malignant neoplasm of prostate; Z92.3 Personal history of irradiation; E11.9 Type 2 diabetes mellitus without complications; Z87.891 Personal history of nicotine dependence
CPT/HCPCS: 45385; 88305; J2704; J7120

== ENCOUNTER 2022-07-23 10:45 | Outpatient (CLI) | payer OTHER, SELFPAY ==
[2022-07-23 18:01] LABS: Prostate Specific Antigen 0.2 ng/mL (< OR = 4.0)
[2022-07-30 11:23] LABS: Testosterone Total 8 ng/dL (250-1100)
== END 2022-07-23 10:46 | disposition home or self-care (01) ==
LOC: ANHGOSHLAB 10:47
PROVIDERS: PCP Family Medicine; Visit Provider Urology
DX: C61 Malignant neoplasm of prostate (principal)
CPT/HCPCS: 36415; 84153; 84403

== ENCOUNTER 2022-10-26 14:32 | Emergency (ER) | payer OTHER, SELFPAY ==
--- NOTE | ~2022-10-26 | XR_ITS ---
EXAMINATION: XR hand RT min 3V DATE: 10/26/2022 16:26 INDICATION: Right hand laceration TECHNIQUE: Posteroanterior, oblique and lateral views of the right hand were obtained. COMPARISON: None. FINDINGS: Diffuse osteopenia. Bone alignment is normal. No fracture. Polyarticular osteoarthritis, severe at th e first second and third metacarpophalangeal and second distal interphalangeal joints, moderate sever ity at the distal radioulnar, wrist, midcarpal, triscaphe, first carpometacarpal and remaining interp halangeal joints. Soft tissues are unremarkable with no soft tissue gas or radiopaque foreign bodies. IMPRESSION: 1. No acute osseous abnormality or radiopaque foreign bodies. 2. Moderate to severe polyarticular osteoarthritis throughout the right hand and wrist. Reviewed, dictated and finalized at location A. IMPRESSION: 1. No acute osseous abnormality or radiopaque foreign bodies. 2. Moderate to severe polyarticular osteoarthritis throughout the right hand an d wrist.
[2022-10-26 15:15] VITALS: BP 132/74; PULSE 73; RESP 16; TEMP 36.4; O2SAT 97
[2022-10-26] MEDS: TETANUS,DIPHTHERIA,AC PERTUSSIS ADULT (0.5 ML) BOOSTRIX IM (16:19)
--- NOTE | 2022-10-26 16:39 | ED.GENADULT ---
HPI - General Adult General Chief complaint: Skin/Abscess/Foreign Body Stated complaint: Right hand laceration Time Seen by Provider: 10/26/22 16:11 Source: patient Mode of arrival: ambulatory Limitations: no limitations History of Present Illness HPI narrative: This is a 76-year-old male presents the ED with chief complaint of a right hand injury. He was working on the ladder when he fell off and cut his hand on the ladder as it fell. Bleeding is controlled. Reports Tdap is not up-to-date. Denies any further site of pain or injury. Denies head injury or loss of consciousness. Related Data Allergies Allergy/AdvReac Type Severity Reaction Status Date / Time No Known Allergies Allergy Verified 10/26/22 15:18 Review of Systems Review of Systems: CONSTITUTIONAL: Denies fever, chills, or sweats. SKIN: Endorses skin wound. Denies rash or itching. MUSCULOSKELETAL: Denies back pain, joint pain, or myalgia. NEUROLOGIC: Denies headache, numbness, dizziness, or weakness. PSYCHIATRIC: Denies anxiety or depression. [facility] Past Medical History Medical History (Updated 10/26/22 @ 17:31 by Saleem Michael PA-C) Basal cell carcinoma BPH without urinary obstruction Osteoarthritis of knee, unspecified Other and unspecified hyperlipidemia Overweight Prediabetes Prostate cancer Type 2 diabetes mellitus without complications Uncomplicated alcohol dependence Social History Social History Smoking packs per day: 1 Smoking cigarettes per day: 20.0 Years smoked: 30 Smoking pack-years: 30.00 Smoking status: Former smoker Tobacco type: cigarettes Second hand tobacco smoke exposure: No Alcohol intake: current Drinks per week: 21 Alcohol use details: occasionally Substance use: never Substance use type: does not use Lack of Transportation: No Lack of Food: Never True Current Housing: I Have Housing Concerned About Future Housing: No Difficulty Paying Gas/Electric Bills: No Difficulty Paying for Meds: No Currently Unemployed: No Education: Decline to Answer Difficulty w/ Childcare or Family Care: No Living arrangements: with family Additional living arrangements comments: Spiritual care concerns: No Exam Narrative: GENERAL: Well-appearing, well-nourished, and in no acute distress. HEAD: Normocephalic, atraumatic. EYES: PERRLA and EOMI. ENT: Nares clear, no rhinorrhea or epistaxis. Mucous membranes moist. Oropharynx without tonsillar hypertrophy exudate or other lesions. NECK: Supple. No adenopathy or masses. CHEST: No respiratory distress. Clear to auscultation. No wheezes rales or rhonchi HEART: Regular rate and rhythm. No murmur heard. Normal peripheral pulses. ABDOMEN: Soft, nontender, nondistended, normal active bowel sounds. EXTREMITIES: Normal range of motion. No edema. SKIN: There is a 3 cm flap laceration to the palm of the right hypothenar eminence. No active bleeding. No bruising. He also has an abrasion to the posterior proximal right ring finger. No bruising. Skin exam is otherwise intact. Warm, dry, no rash. NEURO: Alert and oriented x3. No focal deficits. PSYCH: Normal mood and affect. Course Vital Signs Vital signs: Vital Signs Temperature 97.6 F 10/26/22 15:15 Pulse Rate 73 10/26/22 15:15 Respiratory Rate 16 10/26/22 15:15 Blood Pressure 132/74 10/26/22 15:15 Pulse Oximetry 97 10/26/22 15:15 Oxygen Delivery Room Air 10/26/22 15:15 Temperature 97.6 F 10/26/22 15:15 Pulse Rate 73 10/26/22 15:15 Respiratory Rate 16 10/26/22 15:15 Blood Pressure 132/74 10/26/22 15:15 Pulse Oximetry 97 10/26/22 15:15 Oxygen Delivery Room Air 10/26/22 15:15 Procedures Laceration Laceration 1: Date: 10/26/22 Time: 17:29 Site: hand Side (If applicable): right Size (cm): 3 Description: flap and irregular Depth: simple, si
== END 2022-10-26 17:49 | disposition home or self-care (01) ==
PROVIDERS: Emergency Provider Physician Assistant; PCP Family Medicine
DX: S61.411A Laceration without foreign body of right hand, initial encounter (principal); Z23 Encounter for immunization; E11.9 Type 2 diabetes mellitus without complications; E78.49 Other hyperlipidemia; N40.0 Benign prostatic hyperplasia without lower urinary tract symptoms; M17.9 Osteoarthritis of knee, unspecified; E66.3 Overweight; Z68.29 Body mass index [BMI] 29.0-29.9, adult; Z85.46 Personal history of malignant neoplasm of prostate; W11.XXXA Fall on and from ladder, initial encounter; W26.8XXA Contact with other sharp object(s), not elsewhere classified, initial encounter
CPT/HCPCS: 12002; 73130; 90471; 90715; 99283

== ENCOUNTER 2022-10-29 11:30 | Outpatient (CLI) | payer OTHER, SELFPAY ==
[2022-10-29 14:38] LABS: Prostate Specific Antigen 0.2 ng/mL (< OR = 4.0)
[2022-11-03 11:53] LABS: Testosterone Total 7 ng/dL (250-1100)
== END 2022-10-29 11:31 | disposition home or self-care (01) ==
LOC: ANHGOSHLAB 11:33
PROVIDERS: PCP Family Medicine; Visit Provider Urology
DX: C61 Malignant neoplasm of prostate (principal)
CPT/HCPCS: 36415; 84153; 84403

== ENCOUNTER 2022-12-21 09:00 | Outpatient (NON) | payer OTHER, SELFPAY | END 2022-12-21 09:01 | disposition home or self-care (01) | LOC: ANHLAB 12-22 16:16 | PROVIDERS: PCP Family Medicine; Visit Provider Nurse Practitioner | DX: L57.0 Actinic keratosis (principal) | CPT/HCPCS: 88305 ==

== ENCOUNTER 2023-03-22 08:00 | Outpatient (NON) | payer OTHER, SELFPAY | END 2023-03-22 08:01 | disposition home or self-care (01) | LOC: ANHLAB 03-23 12:19 | PROVIDERS: PCP Family Medicine; Visit Provider Nurse Practitioner | DX: C44.729 Squamous cell carcinoma of skin of left lower limb, including hip (principal); L82.1 Other seborrheic keratosis; D22.5 Melanocytic nevi of trunk | CPT/HCPCS: 88305 ==

== ENCOUNTER 2023-04-25 13:49 | Outpatient (NON) | payer OTHER, SELFPAY | END 2023-04-25 13:50 | disposition home or self-care (01) | LOC: ANHLAB 13:49 | PROVIDERS: PCP Family Medicine; Visit Provider Nurse Practitioner | DX: C44.92 Squamous cell carcinoma of skin, unspecified (principal) | CPT/HCPCS: 88305; 88331 ==

== ENCOUNTER 2023-06-14 08:13 | Outpatient (CLI) | payer OTHER, SELFPAY ==
[2023-06-14 19:37] LABS: Alanine Aminotransferase 33 U/L (6-50); Albumin Level 3.8 g/dL (3.5-5.1); Alkaline Phosphatase 90 U/L (38-126); Anion Gap 10 mmol/L (8-16); Aspartate Amino Transferase 31 U/L (17-59); Bilirubin,Total 0.5 mg/dL (0.2-1.3); Blood Urea Nitrogen 16 mg/dL (9-20); Calcium 9.3 mg/dL (8.4-10.2); Carbon Dioxide 26 mmol/L (22-30); Chloride 103 mmol/L (98-107); Cholesterol 114 mg/dL (0-200); Estimated Glomerular Filt Rate > 60; Glucose 125 mg/dL (65-110); HDL Direct 35 mg/dL; Potassium 4.6 mmol/L (3.4-5.0); Sodium 139 mmol/L (137-145); Triglycerides 93 mg/dL (<150)
[2023-06-14 19:48] LABS: LDL Cholesterol Direct 61 mg/dL
[2023-06-18 07:31] LABS: Testosterone Free 1.7 pg/mL (30.0-135.0); Testosterone Total 16 ng/dL (250-1100)
== END 2023-06-14 08:14 | disposition home or self-care (01) ==
PROVIDERS: PCP Family Medicine; Visit Provider Family Medicine
DX: E78.5 Hyperlipidemia, unspecified (principal); R53.83 Other fatigue; Z13.228 Encounter for screening for other metabolic disorders
CPT/HCPCS: 36415; 80053; 80061; 84402; 84403

== ENCOUNTER 2023-06-21 10:43 | Outpatient (CLI) | payer OTHER, SELFPAY ==
[2023-06-21 13:58] LABS: Hemoglobin A1C 5.9 % (<5.7)
== END 2023-06-21 10:44 | disposition home or self-care (01) ==
PROVIDERS: PCP Family Medicine; Visit Provider Family Medicine
DX: E11.9 Type 2 diabetes mellitus without complications (principal)
CPT/HCPCS: 36415; 83036

== ENCOUNTER 2024-07-30 16:12 | Outpatient (CLI) | payer OTHER, SELFPAY ==
--- NOTE | ~2024-07-30 | XR_ITS ---
CHEST RADIOGRAPH, PA AND LATERAL CLINICAL HISTORY: R05.3 - Chronic cough . COMPARISON: Reference is made to CT examination of the abdomen and pelvis dated 10/27/2020 TECHNIQUE: PA and lateral views of the chest. FINDINGS Large left-sided pleural effusion with dense consolidation of the anterior segment of the left upper lobe. Prominence of the right hilum is also noted. These findings are an interval change from 2020 examination, when the lungs were clear. IMPRESSION: Large left-sided pleural effusion with dense consolidation of the anterior segment of the left upper lobe. Prominence of the right hilum is also noted, an interval change from 2020 examination. Reviewed, dictated and finalized at location A. ORESIST PRINTER IMPRESSION: Large left-sided pleural effusion with dense consolidation of the anterior segm ent of the left upper lobe. Prominence of the right hilum is also noted, an interval change from 2020 exami [place].
== END 2024-07-30 16:13 | disposition home or self-care (01) ==
LOC: GOSHIMG 16:13
PROVIDERS: PCP Family Medicine; Visit Provider Family Medicine
DX: R91.8 Other nonspecific abnormal finding of lung field (principal); R05.3 Chronic cough; U09.9 Post COVID-19 condition, unspecified
CPT/HCPCS: 71046

== ENCOUNTER 2024-07-31 09:03 | Outpatient (CLI) | payer OTHER, SELFPAY ==
[2024-07-31 09:33] LABS: Basophils Percent Auto 0.3 % (0.2-1.2); Eosinophils Absolute Auto 0.1 K/mm3 (0-0.3); Hematocrit 37.2 % (42.0-52.0); Hemoglobin 11.2 g/dL (14.0-18.0); Immature Granulocyte Absolute 0.03 K/mm3 (0.00-0.031); Immature Granulocyte Percent A 0.5 % (0-0.5); Lymphocytes Absolute Auto 0.46 K/mm3 (0.9-3.2); Lymphocytes Percent Auto 6.9 % (18.3-44.2); Mean Corpuscular HGB Conc 30.1 g/dl (32-36); Mean Corpuscular Hemoglobin 24.6 pg (26-34); Mean Corpuscular Volume 81.8 fl (80-100); Mean Platelet Volume 7.9 fl (7.4-10.4); Monocytes Absolute Auto 0.5 K/mm3 (0.1-0.6); Monocytes Percent Auto 6.8 % (2.6-8.5); Neutrophils Absolute Auto 5.6 K/mm3 (1.3-6.7); Neutrophils Percent Auto 83.5 % (45.5-73.1); Platelet Count Result 305 k/mm3 (150-375); Red Blood Count 4.55 M/mm3 (4.6-6.20); Red Cell Distribution Width 17.1 % (11.5-14.5); White Blood Count 6.7 K/mm3 (4.5-10.0)
[2024-07-31 10:35] LABS: Prostate Specific Antigen 0.2 ng/mL (< OR = 4.0)
[2024-07-31 11:22] LABS: Alanine Aminotransferase 17 U/L (6-50); Albumin Level 3.8 g/dL (3.5-5.1); Alkaline Phosphatase 92 U/L (38-126); Anion Gap 9 mmol/L (4-12); Aspartate Amino Transferase 24 U/L (17-59); Bilirubin,Total 0.7 mg/dL (0.2-1.3); Blood Urea Nitrogen 15 mg/dL (9-20); Calcium 9.4 mg/dL (8.4-10.2); Carbon Dioxide 27 mmol/L (22-30); Chloride 101 mmol/L (98-107); Cholesterol 99 mg/dL (0-200); Estimated Glomerular Filt Rate > 60; Glucose 118 mg/dL (65-110); HDL Direct 33 mg/dL; LDL Cholesterol Direct 40 mg/dL; Potassium 4.5 mmol/L (3.4-5.0); Sodium 137 mmol/L (137-145); Triglycerides 70 mg/dL (<150)
[2024-07-31 11:28] LABS: Vitamin D 25 Hydroxy 25.5 ng/mL
[2024-07-31 12:23] LABS: Hemoglobin A1C 5.5 % (<5.7)
--- OUTSIDE RECORDS SUMMARY | 2024-08-02 16:35 | XMS_ITS | Referral Summary ---
Author Organization [facility] Address [address] [place] [address] Care Team Providers Care Alumni Coordinator Name Role Phone Almas Stapleton MD Unavailable [phone] Alejandro Kellogg DO Primary Care Provider [phone] Source Comments [facility],non-owned Affiliates and Associated Physician Practices is amultiple site organization consisting of ambulatory clinics and hospital sitesin [place], [place], [place] and [place]. This disclosure is being madepursuant to the Care Everywhere program and may not contain all information available regarding this patient. Last updated 18.[facility] Allergies Active Allergy Reactions Criticality Noted Date Comments Adhesive Sensitivity 07/22/2011 Rash, Medications * Be aware that medications may not be up to date on this document. Alwaysverify current medications with the patient. Medication Sig Dispensed Refills Start Date End Date Status metFORMIN (GLUCOPHAGE) 500 MG tablet Take 500 mg by mouth at bedtime. Active simvastatin (ZOCOR) 40 MG tablet Take 40 mg by mouth at bedtime. Active multivitamin daily (THERAGRAN) tablet Take 1 Tab by mouth daily with food. Active calcium-vitamin D (CALTRATE PLUS D) 600-200 MG-UNIT tablet Take 1 Tab by mouth once daily. Active Cyanocobalamin (VITAMIN B 12 PO) Take by mouth once daily. Active finasteride (PROSCAR) 5 MG tablet Take 5 mg by mouth once daily. Active tamsulosin CR 24hr (FLOMAX) 0.4 MG capsule Take 0.4 mg by mouth once daily. Take 30 minutes after a meal at the same time each day. Active celecoxib (CELEBREX) 200 MG capsule Take 1 Cap by mouth 2 times daily. 60 Cap 0 08/24/2012 Active hydrocodone-acetaminop hen (NORCO) 5-325 MG tablet Take 1-2 Tabs by mouth every 6 hours as needed for Pain. MUST LAST 3 WEEKS 50 Tab 0 10/16/2012 Active Active Problems Problem Noted Date Diagnosed Date Osteoarthrosis involving lower leg 06/21/2012 Overview (10/04/2015): 2015 IMO Updt Knee joint replacement by other means 11/05/2011 Immunizations Name Administration Dates Next Due INFLUENZA VACCINE 07/22/2011 PNEUMOCOCCAL PPSV23 09/04/2012 Social History Tobacco Use Types Packs/Day Years Used Date Smoking Tobacco: Former Cigarettes 1 25 0 07/11/1971 - 07/11/1996 Smokeless Tobacco: Never Alcohol Use Standard Drinks/Week Comments Yes 22.5 (1 standard drink = 0.6 oz pure alcohol) 2 drinks/day Sex and Gender Information Value Date Recorded Sex Assigned at Not on file Gender Identity Not on file Sexual Orientation Not on file Last Filed Vital Signs Vital Sign Reading Time Taken Comments Blood Pressure 117/74 09/04/2012 6: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 Pulse 78 09/04/2012 6: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 Temperature 36.9 ??C (98.4 ??F) 09/04/2012 6:06 AM CS T Respiratory Rate 18 09/04/2012 6: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 Oxygen Saturation 98% 09/04/2012 6: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 Inhaled Oxygen Concentration - - Weight 88.4 kg (194 lb 12.8 oz) 09/01/2012 7:04 AM MASSAGE THERAPY INSTRUCTOR Height 175.3 cm (5' 9 ) 09/01/2012 7:04 AM MASSAGE THERAPY INSTRUCTOR Body Mass Index 28.77 09/01/2012 7:04 AM MASSAGE THERAPY INSTRUCTOR Plan of Treatment Not on file Administered Medications Advance Directives Documents on File Type Date Recorded Patient Airline Manager Expl anation Adv Directive/Living Will/POA 08/16/2011 11:00 AM * FULL RESUSCITATION (Latest Code Status on File) Date Activated Date Inactivated Comments 09/01/2012 11:08 AM 09/04/2012 12:46 PM * FULL RESUSCITATION Date Activated Date Inactivated Comments 08/12/2011 1:57 PM 08/15/2011 11:27 PM Care Teams Alumni Coordinator Relationship Specialty Start Date End Date Alejandro Kellogg DO [address] [place] [id number] PCP - General 02/23/22 Almas Stapleton MD Orthopedic Surgery 09/01/11
--- OUTSIDE RECORDS SUMMARY | 2024-08-02 16:35 | XMS_ITS | Referral Summary ---
Author Organization [facility] Address [address] [place] [id number] Care Team Providers Care Core Mounter Name Role Phone Almas Calvin MD Primary Care Provider [phone] Allergies Active Allergy Reactions Criticality Noted Date Comments Adhesive Rash Medium 07/22/2011 Rash, Medications tamsulosin (FLOMAX) 0.4 mg extended release capsule 0.4 mg Acti ve simvastatin (ZOCOR) 40 mg tablet Take 40 mg by mouth nightly Active finasteride (PROSCAR) 5 mg tablet Take 5 mg by mouth daily Active celecoxib (CeleBREX) 200 mg capsule Take 200 mg by mouth 2 (two) times a day 08/24/2012 Active metFORMIN (GLUCOPHAGE) 500 mg tablet Take 500 mg by mouth nightly Active sildenafiL (VIAGRA) 100 mg tablet 06/16/2020 Active Active Problems Problem Noted Date Diagnosed Date Basal cell carcinoma of skin of other parts of f lynda 09/01/2020 Social History Tobacco Use Types Packs/Day Years Used Date Smoking Tobacco: Former Smokeless Tobacco: Never Personal Safety Answer Date Recorded Getting School Help Needed Not on file 09/23 Sex and Gender Information Value Date Recorded Sex Assigned at Not on file Legal 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
--- OUTSIDE RECORDS SUMMARY | 2024-08-02 16:35 | XMS_ITS | Patient Health Summary ---
Author Organization [facility] Address [address] [facility] [place] [address] Care Team Providers Care Php Lamp Developer Name Role Phone Anne Stapleton MD Unavailable [phone] Alejandro Kellogg DO Primary Care Provider Note from [facility],non-owned Affiliates and Associated Physician Practices is amultiple site organization consisting of ambulatory clinics and hospital sitesin [place], [place], [place] and [place]. This disclosure is being madepursuant to the Care Everywhere program and may not contain all information available regarding this patient. Last updated 18.[facility] Allergies * Adhesive Sensitivity(Rash,) Medications * Be aware that medications may not be up to date on this document. Alwaysverify current medications with the patient. * metFORMIN (GLUCOPHAGE) 500 MG tablet Take 500 mg by mouth at bedtime. * simvastatin (ZOCOR) 40 MG tablet Take 40 mg by mouth at bedtime. * multivitamin daily (THERAGRAN) tablet Take 1 Tab by mouth daily with food. * calcium-vitamin D (CALTRATE PLUS D) 600-200 MG-UNIT tablet Take 1 Tab by mouth once daily. * Cyanocobalamin (VITAMIN B 12 PO) Take by mouth once daily. * finasteride (PROSCAR) 5 MG tablet Take 5 mg by mouth once daily. * tamsulosin CR 24hr (FLOMAX) 0.4 MG capsule Take 0.4 mg by mouth once daily. Take 30 minutes after a meal at the same time each day. * celecoxib (CELEBREX) 200 MG capsule(Started 08/24/2012) Take 1 Cap by mouth 2 times daily. * hydrocodone-acetaminophen (NORCO) 5-325 MG tablet(Started 10/16/2012) Take 1-2 Tabs by mouth every 6 hours as needed for Pain. 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 Knee joint replacement by other means 11/05/2011 Immunizations * INFLUENZA VACCINE(Given 07/22/2011) * PNEUMOCOCCAL PPSV23(Given 09/04/2012) Social History Tobacco Use Types Packs/Day Years [...] Comments Blood Pressure 117/74 09/04/2012 6:06 AM AIR TRAFFIC CONTROLLER Pulse 78 09/04/2012 6:06 AM AIR TRAFFIC CONTROLLER Temperature 36.9 ??C (98.4 ??F) 09/04/2012 6:06 AM CS T Respiratory Rate 18 09/04/2012 6:06 AM AIR TRAFFIC CONTROLLER Oxygen Saturation 98% 09/04/2012 6:06 AM AIR TRAFFIC CONTROLLER Inhaled Oxygen Concentration - - Weight 88.4 kg (194 lb 12.8 oz) 09/01/2012 7:04 AM AIR TRAFFIC CONTROLLER Height 175.3 cm (5' 9 ) 09/01/2012 7:04 AM AIR TRAFFIC CONTROLLER Body Mass Index 28.77 09/01/2012 7:04 AM AIR TRAFFIC CONTROLLER Procedures * DERMATOPATHOLOGY(Performed 07/16/2014) * DERMATOPATHOLOGY(Performed 05/29/2014) * DERMATOPATHOLOGY(Performed 05/08/2014) * XR KNEE BILAT 3VW(Performed 10/12/2012) Performed for Osteoarthrosis, unspecified whether generalized or localized, lower leg * GLUCOSE - POINT OF CARE(Performed 09/04/2012) * GLUCOSE - POINT OF CARE(Performed 09/03/2012) * GLUCOSE - POINT OF CARE(Performed 09/03/2012) * GLUCOSE - POINT OF CARE(Performed 09/03/2012) * GLUCOSE - POINT OF CARE(Performed 09/03/2012) * HGB HCT PANEL(Performed 09/03/2012) * GLUCOSE - POINT OF CARE(Performed 09/02/2012) * GLUCOSE - POINT OF CARE(Performed 09/02/2012) * GLUCOSE - POINT OF CARE(Performed 09/02/2012) * GLUCOSE - POINT OF CARE(Performed 09/02/2012) * HGB HCT PANEL(Performed 09/02/2012) * GLUCOSE - POINT OF CARE(Performed 09/01/2012) * GLUCOSE - POINT OF CARE(Performed 09/01/2012) * GLUCOSE - POINT OF CARE(Performed 09/01/2012) * DERMATOPATHOLOGY(Performed 08/22/2012) * COMPREHENSIVE METABOLIC PANEL(Performed 08/07/2012) Performed for Other specified pre-operative examination * CBC W AUTO DIFFERENTIAL(Performed 08/07/2012) Performed for Other specified pre-operative examination * CULTURE MSSA/MRSA(Performed 08/07/2012) Performed for Other specified pre-operative examination * EKG 12-LEAD(Performed 08/07/2012) Performed for Other specified pre-operative examination * DERMATOPATHOLOGY(Performed 08/01/2012) * DERMATOPATHOLOGY(Performed 07/20/2012) * DERMATOPATHOLOGY(Performed 05/25/2012) * DERMATOPATHOLOGY(Performed 05/12/2012) * DERMATOPATHOLOGY(Performed 04/26/2012) * DERMATOPATHOLOGY(Performed 03/20/2012) * XR KNEE LEFT 3VW(Performed 09/20/2011) Performed for Osteoarthrosis, unspecified whether generalized or localized, lower leg * CARDIAC RHYTHM STRIP ORDER(Performed 08/16/2011) * IP CONSULT TO HOME HEALTH CARE(Performed 08/15/2011) * GLUCOSE - POINT OF CARE(Performed 08/15/2011) * GLUCOSE - POINT OF CARE(Performed 08/14/2011) * GLUCOSE - POINT OF CARE(Performed 08/14/2011) * GLUCOSE - POINT OF CARE(Performed 08/14/2011) * GLUCOSE - POINT OF CARE(Performed 08/14/2011) * HGB HCT PANEL(Performed 08/14/2011) * GLUCOSE - POINT OF CARE(Performed 08/13/2011) * GLUCOSE - POINT OF CARE(Performed 08/13/2011) * GLUCOSE - POINT OF CARE(Performed 08/13/2011) * GLUCOSE - POINT OF CARE(Performed 08/13/2011) * HGB HCT PANEL(Performed 08/13/2011) * GLUCOSE - POINT OF CARE(Performed 08/12/2011) * GLUCOSE - POINT OF CARE(Performed 08/12/2011) * IP CONSULT TO HOSPITALIST(Performed 08/12/2011) * GLUCOSE - POINT OF CARE(Performed 08/12/2011) * GLUCOSE - POINT OF CARE(Performed 08/12/2011) * CARDIAC EKG ORDER(Performed 07/24/2011) * COMPREHENSIVE METABOLIC PANEL(Performed 07/22/2011) Performed for Preoperative examination, unspecified * CBC W AUTO DIFFERENTIAL(Performed 07/22/2011) Performed for Preoperative examination, unspecified * CULTURE MSSA/MRSA(Performed 07/22/2011) Performed for Preoperative examination, unspecified Results * PATHOLOGY TISSUE FOR DERMATOLOGY (07/16/2014 12:00 AM AIR TRAFFIC CONTROLLER) Only the most recent of10 resultswithin the time period is included. Result CASE: [id number] PATIENT: ANNE ELIAS PATHOLOGIC DIAGNOSIS: Left neck: SEBORRHEIC KERATOSIS, IRRITATED CLINICAL DATA: SK / Nevus. GROSS DESCRIPTION: Received is one formalin filled container labeled with the patient's name and designated left neck. The specimen consists of a shave biopsy measuring 7x5x2 mm. Jar 0. MICROSCOPIC DESCRIPTION: There is acanthosis consisting of fairly uniform squamous cells with eosinophilic cytoplasm and squamous eddies. Electronically signed out by Earnestine Smith M.D. 07/17/2014 4:22:05PM [facility] Comment: Performed at: Dermatopathology Laboratory [facility] - Department of Dermatology [address] [place] [address] [place] [address] Phone number: [phone] FAX: [phone] 07/16/2014 07/17/2014 Mauricio Chapa LAB - PATHOLOGY/CYTO LOGY ORDERABLES [facility] [address] [place] [address]. [facility] [place] [address], [facility] [phone] * XR KNEE BILAT 3 VIEWS (10/12/2012 2:41 PM CDT) Anatomical Region Laterality Modality Lower Extremity Radiographic Aminah ging Narrative 10/12/2012 2:41 PM CDT Hanny Lopez, RT(R) ? 10/12/2012 ??2:41 PM SEE PROGRESS NOTES FOR FINAL RESULT Procedure Note Hanny Lopez, RT(R) - 10/12/2012 2:41 PM CDT SEE PROGRESS NOTES FOR FINAL RESULT Anne Stapleton MD DIAGNOSTIC IMAGING O RDERABLES * (ABNORMAL) GLUCOSE - POINT OF CARE (09/04/2012 7:10 AM AIR TRAFFIC CONTROLLER) Only the most recent of25 resultswithin the time period is included. Glucose WB/POC 137(H) 75 - 110 mg/dl [facility] BLOOD SPECIMEN / Unknown 09/04/2012 7:10 AM AIR TRAFFIC CONTROLLER 09/04/2012 12:21 PM AIR TRAFFIC CONTROLLER Anne Stapleton MD LAB - POINT OF CARE ORDERABLES Performing Organization Address [facility] de Phone Number [facility] [address] [place] [address] * (ABNORMAL) HGB HCT PANEL (09/03/2012 3:00 AM AIR TRAFFIC CONTROLLER) Only the most recent of4 resultswithin the time period is included. Hemoglobin 11.3(L) 12.0 - 17.6 gm/dL [facility] Hematocrit 34.0(L) 35.2 - 51.7 % [facility] Blood specimen (specimen) BLOOD SPECIMEN / Unknown 09/03/2012 3:00 AM AIR TRAFFIC CONTROLLER 09/03/2012 3:14 AM AIR TRAFFIC CONTROLLER Anne Stapleton MD LAB - HEMATOLOGY ORD ERABLES Performing Organization Address [facility] Co de Phone Number [facility] [address] [place] [address] * CULTURE MSSA/MRSA (08/07/2012 11:55 AM AIR TRAFFIC CONTROLLER) Only the most recent of2 resultswithin the time period is included. Result [facility] Comment: Final NO growth S.aureus/NO growth S.aureus (MRSA) Miscellaneous samples (specimen) SPECIMEN FROM NASAL FOSSAE / Unknown 08/07/2012 11:55 AM AIR TRAFFIC CONTROLLER 08/07/2012 12:14 PM AIR TRAFFIC CONTROLLER Narrative [facility] - 08/08/2012 7:21 PM AIR TRAFFIC CONTROLLER Performed By [facility];[address];[place] [address] Anne Stapleton MD LAB - MICROBIOLOGY O RDERABLES [facility] [address] [place] [address] * CBC W AUTO DIFFERENTIAL (08/07/2012 11:55 AM AIR TRAFFIC CONTROLLER) Only the most recent of2 resultswithin the time period is included. WBC 5.7 4.4 - 10.7 1000/mm3 [facility] RBC 4.97 3.80 - 5.40 10X6 [facility] Hemoglobin 14.1 12.0 - 17.6 gm/dL [facility] Hematocrit 41.5 35.2 - 51.7 % [facility] MCV 83.5 80.7 - 98.3 fl [facility] MCH 28.4 26.7 - 34.0 pg [facility] MCHC 34.0 30.8 - 35.9 gm/dL [facility] RDW 13.6 12.1 - 14.9 % [facility] Platelet Count 215 153 - 416 1000/mm3 [facility] MPV 9.7 9.4 - 12.9 fl [facility] Granulocytes % 55.8 44 - 73 % [facility] Immature Granulocytes % 0.2 0 - 1 % [facility] Lymphocytes % 34.6 20 - 43 % [facility] Monocytes % 7.1 5 - 13 % [facility] Eosinophils % 1.9 0 - 6 % [facility] Basophils % 0.4 0 - 2 % [facility] Granulocytes Absolute 3.17 2.01 - 7.14 [facility] Immature Granulocytes Absolute 0.01 0.00 - 0.06 [facility] Lymphocytes Absolute 1.96 1.07 - 3.94 [facility] Monocytes Absolute 0.40 0.26 - 1.07 [facility] Eosinophils Absolute 0.11 0.00 - 0.47 [facility] Basophils Absolute 0.02 0.00 - 0.08 [facility] Comment Manual Diff Not Indicated [facility] Blood specimen (specimen) BLOOD SPECIMEN / Unknown 08/07/2012 11:55 AM AIR TRAFFIC CONTROLLER 08/07/2012 12:13 PM AIR TRAFFIC CONTROLLER Anne Stapleton MD LAB - HEMATOLOGY ORD ERABLES Performing Organization Address [facility] de Phone Number [facility] [address] [place] [address] * (ABNORMAL) COMPREHENSIVE METABOLIC PANEL (08/07/2012 11:55 AM AIR TRAFFIC CONTROLLER) Only the most recent of2 resultswithin the time period is included. BUN 17 7.0 - 21.0 mg/dL [facility] Sodium 139 136 - 145 mmol/L [facility] Potassium 4.0 3.5 - 5.1 mmol/L [facility] Chloride 105 98.0 - 107.0 mmol/L [facility] Glucose 115(H) 74 - 106 mg/dL [facility] Creatinine 0.87 0.5 - 1.3 mg/dL [facility] AST 17 5 - 40 U/L [facility] Alkaline Phosphatase 58 38 - 126 U/L [facility] Calcium 9.2 8.5 - 10.1 mg/dL [facility] Bilirubin Total 0.5 0.2 - 1.0 mg/dL [facility] Albumin 4.2 3.4 - 5.0 gm/dL [facility] Protein Total 7.8 6.4 - 8.2 gm/dL [facility] CO2 29 22.0 - 30.0 mmol/L [facility] ALT 40 12 - 78 U/L [facility] eGFR by MDRD 87 mL/min/1.7 3m2 [facility] Anion Gap 5.0 5 - 15 mmol/L [facility] Blood specimen (specimen) BLOOD SPECIMEN / Unknown 08/07/2012 11:55 AM AIR TRAFFIC CONTROLLER 08/07/2012 12:13 PM AIR TRAFFIC CONTROLLER Anne Stapleton MD LAB - CHEMISTRY ORDMyke RODNEY Performing Organization Address [facility] Co de Phone Number [facility] [address] [place] [address] * EKG 12-LEAD (08/07/2012 11:50 AM AIR TRAFFIC CONTROLLER) Ventricular Rate 67 BPM [facility] Atrial Rate 67 BPM [facility] P-R Interval 178 ms [facility] QRS Duration ms 88 ms [facility] Q-T Interval ms 364 ms [facility] QTC Calculation (Bezet) 384 ms [facility] Calculated P [place] 55 degrees [facility] Calculated R [place] 43 degrees [facility] Calculated T [place] 52 degrees [facility] Interpretation EKG Normal sinus rhythm Normal ECG When compared with ECG of 22-JUL-2011 11:05, No significant change was found Confirmed by MD PERCY, CLEOPATRA ([id number]) on 08/07/2012 4:16:03 PM [facility] 08/07/2012 11:5 0 AM AIR TRAFFIC CONTROLLER 08/07/2012 4:16 PM AIR TRAFFIC CONTROLLER Narrative [facility] - 08/07/2012 4:18 PM AIR TRAFFIC CONTROLLER Procedure Note Document, Scanned - 08/07/2012 2:15 PM CST Transcriptions Document, Scanned - 08/07/2012 4:18 PM CST Anne Stapleton MD ECG ORDERABLES [facility] * XR KNEE 3 VW LEFT (09/20/2011 3:25 PM CDT) Anatomical Region Laterality Modality Lower Extremity Other Narrative 09/20/2011 3:25 PM CDT RT Barrett ? 09/20/2011 ??3:25 PM See progress notes for results Procedure Note Ely Villanueva, RT - 09/20/2011 3:25 PM CDT See progress notes for results Anne Stapleton MD DIAGNOSTIC IMAGING O RDERABLES * CARDIAC RHYTHM STRIP ORDER (08/16/2011 2:47 PM AIR TRAFFIC CONTROLLER) Narrative Transcriptions Document, Scanned - 08/16/2011 2:47 PM CST Scanned Document CARDIAC SERVICES ORD ERABLES * IP CONSULT TO HOME CARE (08/15/2011 12:16 PM AIR TRAFFIC CONTROLLER) Narrative Kenya Turner LPN - 08/15/2011 12:16 PM AIR TRAFFIC CONTROLLER Kenya Turner LPN ? 08/15/2011 12:16 PM Home care orders received. Per physician's request,[facility], , will follow upon discharge. ??All information faxed to [phone]. ??Thank you for this referral. Kenya Turner LPN, Social Science Teacher, Procedure Note Kenya Turner LPN - 08/15/2011 11:28 AM CST Home care orders received. Per physician's request,[facility],[phone], will follow upon discharge. All information faxed [phone]. Thank you for this referral. Kenya Turner LPN, Social Science Teacher, Anne Stapleton MD INPATIENT ANCILLARY CONSULT * IP CONSULT TO HOSPITALIST (08/12/2011 2:19 PM AIR TRAFFIC CONTROLLER) Narrative Colby Bear MD - 08/12/2011 2:19 PM AIR TRAFFIC CONTROLLER Colby Bear MD ? 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
--- OUTSIDE RECORDS SUMMARY | 2024-08-02 16:35 | XMS_ITS | Clinical Summary ---
Author Organization [facility] Address [address] [facility] [place] [address] Care Team Providers Care Grinding Room Inspector Name Role Phone Amlas Stapleton MD Unavailable [phone] Alejanrdo Kellogg DO Primary Care Provider [phone] Source Comments [facility],non-owned Affiliates and Associated Physician Practices is amultiple site organization consisting of ambulatory clinics and hospital sitesin [place], [place], [place] and [place]. This disclosure is being madepursuant to the Care Everywhere program and may not contain all information available regarding this patient. Last updated 18.[facility] Allergies Active Allergy Reactions Criticality Noted Date [...] Comments Blood Pressure 117/74 09/04/2012 6:06 AM GAS CONTROLLER Pulse 78 09/04/2012 6:06 AM GAS CONTROLLER Temperature 36.9 ??C (98.4 ??F) 09/04/2012 6:06 AM CS T Respiratory Rate 18 09/04/2012 6:06 AM GAS CONTROLLER Oxygen Saturation 98% 09/04/2012 6:06 AM GAS CONTROLLER Inhaled Oxygen Concentration - - Weight 88.4 kg (194 lb 12.8 oz) 09/01/2012 7:04 AM GAS CONTROLLER Height 175.3 cm (5' 9 ) 09/01/2012 7:04 AM GAS CONTROLLER Body Mass Index 28.77 09/01/2012 7:04 AM GAS CONTROLLER Plan of Treatment Health Maintenance Due Date Last Done Comments DTAP/TDAP/TD VACCINES (1 - Tdap) 11/19/1962 ZOSTER VACCINE (1 of 2) 11/19/1993 PNEUMOCOCCAL VACCINE 50+ (2 of 2 - PCV) 09/04/2013 09/04/2012 Respiratory Syncytial Virus (RSV) Vaccine Pt: or over 60 yrs (1 - 1-dose 75+ series) 11/19/2018 COVID-19 VACCINE (2023-2 5 season) 2024 INFLUENZA VACCINE (#1) 2024 07/22/2011 DEPRESSION SCREENING 07/11/2024 MEDICARE AWV ? CALENDAR YEAR 2024 HEPATITIS B VACCINE Aged Out No longe r eligible based on patient's age to complete this topic HIB VACCINE Aged Out No longer eligi ble based on patient's age to complete this topic HPV VACCINE Aged Out No longer eligi ble based on patient's age to complete this topic MENINGOCOCCAL (Group B) VACCINE Aged Out No longer eligible based on patient's age to complete this topic MENINGOCOCCAL VACCINE Aged Out No niurka john eligible based on patient's age to complete this topic Advance Directives Documents on File Type Date Recorded Patient Allied Health Instructor Expl anation Adv Directive/Living Will/POA 08/16/2011 11:00 AM * FULL RESUSCITATION (Latest Code Status on File) Date Activated Date Inactivated Comments 09/01/2012 11:08 AM 09/04/2012 12:46 PM * FULL RESUSCITATION Date Activated Date Inactivated Comments 08/12/2011 1:57 PM 08/15/2011 11:27 PM Care Teams Grinding Room Inspector Relationship Specialty Start Date End Date Alejandro Kellogg DO [address] [place] [phone] PCP - General 02/23/22 Almas Stapleton MD Orthopedic Surgery 09/01/11
--- OUTSIDE RECORDS SUMMARY | 2024-08-02 16:35 | XMS_ITS | Clinical Summary ---
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
[2024-08-03 10:48] LABS: Testosterone Total 29 ng/dL (250-1100)
== END 2024-07-31 09:04 | disposition home or self-care (01) ==
PROVIDERS: PCP Family Medicine; Referring Provider Family Medicine; Visit Provider Urology
DX: C61 Malignant neoplasm of prostate (principal); E55.9 Vitamin D deficiency, unspecified; E78.5 Hyperlipidemia, unspecified; R73.9 Hyperglycemia, unspecified; Z79.899 Other long term (current) drug therapy
CPT/HCPCS: 36415; 80053; 80061; 82306; 82607; 83036; 84153; 84403; 84443; 85025

== ENCOUNTER 2024-08-10 07:24 | Outpatient (CLI) | payer OTHER, SELFPAY ==
--- NOTE | ~2024-08-10 | US_ITS ---
EXAMINATION: US biopsy liver DATE: 08/10/2024 11:27 INDICATION: Liver mass TECHNIQUE: The procedure including the risks, benefits, and alternatives was discussed with both the patient and his , and informed consent was obtained. The patient was brought to the ultrasound department and placed in the supine position on the ultraso und table. The right upper quadrant was then prepped and draped in the standard sterile fashion. 1% lidocaine was then utilized without epinephrine for analgesia. A 17-gauge introducer was then advanced into the mass within the right lobe of the liver and the need le removed. Utilizing an 18-gauge biopsy device, multiple specimens were obtained and placed immediately into for evangelista. The biopsy device was then removed. Gelfoam slurry was utilized for hemostasis. The entry site was cleaned and dressed. There were no immediate complications. FINDINGS: Ultrasound images demonstrate the biopsy device directly into the abnormality within the ri ght lobe of the liver. IMPRESSION: Technically successful ultrasound-guided core biopsy of a morphologically suspicious lesion within th e right lobe of the liver, as detailed above. Pathology pending. Reviewed, dictated and finalized at location A. NTIFIC MANAGER IMPRESSION: Technically successful ultrasound-guided core biopsy of a morphologically suspi cious lesion within the right lobe of the liver, as detailed above. Pathology pending.
[2024-08-10 09:20] VITALS: BP 108/67; PULSE 77; RESP 18; TEMP 36.1; O2SAT 93
[2024-08-10 09:52] LABS: Mean Platelet Volume 8.1 fl (7.4-10.4); Platelet Count Result 326 k/mm3 (150-375)
[2024-08-10 10:30] LABS: INR 1.1; Prothrombin Time 14.9 Seconds (11.1-14.7)
[2024-08-10 11:19] VITALS: BP 110/57; PULSE 73; RESP 16; O2SAT 95
[2024-08-10 11:50] VITALS: BP 109/59; PULSE 73; RESP 16
[2024-08-10 12:20] VITALS: BP 117/61; PULSE 74; RESP 16
[2024-08-10 12:50] VITALS: BP 119/54; PULSE 78; RESP 16
[2024-08-10 13:20] VITALS: BP 106/55; PULSE 72
--- NOTE | 2024-08-10 14:21 | PM.OP ---
Procedure Note - Brief Procedure Note - Brief Date of procedure: 08/10/24 liver mass Post-op diagnosis: Same Procedure performed: US guided liver mass biopsy Surgeon: Akosua Hall MD Anesthesia: local Findings: sterile technique US guidance Multiple 18G specimens obtained for analysis. Gelfoam slurry for hemostasis No immed complications Description of procedure: as above Estimated blood loss (mL): 0.01 Pathology: Yes Complications: No immediate complications Condition: Stable Disposition: Same day
== END 2024-08-10 13:45 | disposition home or self-care (01) ==
PROVIDERS: PCP Family Medicine; Referring Provider Internal Medicine Hematology & Oncology; Visit Provider Radiology Diagnostic Radiology
PROC: BF45ZZZ Ultrasonography of Liver (ICD-10-PCS; CPT 47000; principal; 2024-08-10 09:30)
DX: Z01.812 Encounter for preprocedural laboratory examination (principal); C22.7 Other specified carcinomas of liver; K72.90 Hepatic failure, unspecified without coma; R16.0 Hepatomegaly, not elsewhere classified
CPT/HCPCS: 36415; 47000; 76942; 85049; 85610; 88307; 88342

== ENCOUNTER 2024-08-15 09:31 | Outpatient (CLI) | payer OTHER, SELFPAY ==
--- OUTSIDE RECORDS SUMMARY | 2024-08-13 09:27 | XMS_ITS | Clinical Summary ---
Author Organization [facility] Address [address] [facility] [address] Care Team Providers Care [place] Passer Name Role Phone Almas Stapleton MD Unavailable [phone] Alejandro Kellogg DO Primary Care Provider [phone] Source Comments [facility],non-owned Affiliates and Associated Physician Practices is amultiple site organization consisting of ambulatory clinics and hospital sitesin [place], [place], [place] and [place]. This disclosure is being madepursuant to the Care Everywhere program and may not contain all information available regarding this patient. Last updated 18.[facility] Allergies Active Allergy Reactions Criticality [...] Comments Blood Pressure 117/74 09/04/2012 6:06 AM LOG DECK TENDER Pulse 78 09/04/2012 6:06 AM LOG DECK TENDER Temperature 36.9 ??C (98.4 ??F) 09/04/2012 6:06 AM CS T Respiratory Rate 18 09/04/2012 6:06 AM LOG DECK TENDER Oxygen Saturation 98% 09/04/2012 6:06 AM LOG DECK TENDER Inhaled Oxygen Concentration - - Weight 88.4 kg (194 lb 12.8 oz) 09/01/2012 7:04 AM LOG DECK TENDER Height 175.3 cm (5' 9 ) 09/01/2012 7:04 AM LOG DECK TENDER Body Mass Index 28.77 09/01/2012 7:04 AM LOG DECK TENDER Plan of Treatment Health Maintenance Due Date [...] Documents on File Type Date 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
--- OUTSIDE RECORDS SUMMARY | 2024-08-13 09:27 | XMS_ITS | Referral Summary ---
Author Organization [facility] Address [address] [facility] [place] [address] Care Team Providers Care Office Receptionist Name Role Phone Almas Stapleton MD Unavailable [phone] Alejandro Kellogg DO Primary Care Provider [phone] Source Comments [facility],non-owned Affiliates and Associated Physician Practices is amultiple site organization consisting of ambulatory clinics and hospital sitesin [place], [place], [place] and [place]. This disclosure is being madepursuant to the Care Everywhere program and may not contain all information available regarding this patient. Last updated 18.[facility] Allergies Active Allergy Reactions Criticality Noted [...] Comments Blood Pressure 117/74 09/04/2012 6:06 AM TRANSIT PLANNING DIRECTOR Pulse 78 09/04/2012 6:06 AM TRANSIT PLANNING DIRECTOR Temperature 36.9 ??C (98.4 ??F) 09/04/2012 6:06 AM CS T Respiratory Rate 18 09/04/2012 6:06 AM TRANSIT PLANNING DIRECTOR Oxygen Saturation 98% 09/04/2012 6:06 AM TRANSIT PLANNING DIRECTOR Inhaled Oxygen Concentration - - Weight 88.4 kg (194 lb 12.8 oz) 09/01/2012 7:04 AM TRANSIT PLANNING DIRECTOR Height 175.3 cm (5' 9 ) 09/01/2012 7:04 AM TRANSIT PLANNING DIRECTOR Body Mass Index 28.77 09/01/2012 7:04 AM TRANSIT PLANNING DIRECTOR Plan of Treatment Not on file Administered Medications Advance Directives Documents on File Type Date Recorded 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
--- OUTSIDE RECORDS SUMMARY | 2024-08-13 09:27 | XMS_ITS | Referral Summary ---
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
--- OUTSIDE RECORDS SUMMARY | 2024-08-13 09:27 | XMS_ITS | Clinical Summary ---
Author Organization [facility] Denice Salgado Address [address] [place] [address] Care Team Providers Care Toll Patrolman Name Role Phone Chaka Colin MD Primary Care Provider Allergies No known active allergies Medications sildenafil citrate (SILDENAFIL, PULM.HYPERTENSIO N, ORAL) Take by mouth daily. Active Active Problems No known active problems Encounters Date Type Department Care Team Description 08/08/2024 11:30 AM BILLING AND INSURANCE COORDINATOR Office Visit [facility] Oncology and Hematology - [place] [address] [place] [address] Agustin Brown MD Liver mass (Primary Dx); Malignant neoplasm of upper lobe of left lung (CMS/HCC); Prostate cancer (CMS/HCC) from Last 3 Months Family History Medical History Relation Name Comments No Known Problems Brother No Known Problems Child 1 No Known Problems Child 2 No Known Problems Child 3 No Known Problems Father Cancer - Other Mother Diabetes Mother Melanoma Sister Relation Name Status Comments Brother Alive Child 1 Alive Child 2 Alive Child 3 Alive Father Mother Sister Alive Social History Tobacco Use Types Packs/Day Years Used Date Smoking Tobacco: Never Smokeless Tobacco: Never Tobacco Cessation:Counseling Given: Not Answered Alcohol Use Standard Drinks/Week Comments Yes 0 (1 standard drink = 0.6 oz pur e alcohol) Occasionally Sex and Gender Information Value Date Recorded Sex Assigned at Not on file Legal Sex Male 4:26 PM BILLING AND INSURANCE COORDINATOR Gender Identity Not on file Sexual Orientation Not on file Last Filed Vital Signs Vital Sign Reading Time Taken Comments Blood Pressure 112/68 08/08/2024 11:37 AM BILLING AND INSURANCE COORDINATOR Pulse 74 08/08/2024 11:37 AM BILLING AND INSURANCE COORDINATOR Temperature 36.2 ??C (97.2 ??F) 08/08/2024 11:[address] Respiratory Rate 15 08/08/2024 11:37 AM BILLING AND INSURANCE COORDINATOR Oxygen Saturation 92% 08/08/2024 11:37 AM BILLING AND INSURANCE COORDINATOR Inhaled Oxygen Concentration - - Weight 84.4 kg (186 lb) 08/08/2024 11:37 AM BILLING AND INSURANCE COORDINATOR Height 175.3 cm (5' 9 ) 08/08/2024 11:37 AM BILLING AND INSURANCE COORDINATOR Body Mass Index 27.47 08/08/2024 11:37 AM BILLING AND INSURANCE COORDINATOR Plan of Treatment Upcoming Encounters Date Type Department Care Team (Late st Contact Info) Description 08/17/2024 9:00 AM BILLING AND INSURANCE COORDINATOR Office Visit [facility] Oncology and Hematology - [place] [address] [facility] [address] [place] [address] Agustin Brown MD [address] [facility] [employer] [address] [place] [address] Health Maintenance Due Date Last Done Comments DIABETES ANNUAL FOOT EXAM 11/19/1961 DIABETES HBA1C Q 6 MONTHS 11/19/1961 DIABETES MICROALBUMIN ANNUAL SCREEN 11/19/1961 LDL CHOLESTEROL ANNUAL 11/19/1961 DTAP/TDAP/TD VACCINES (1 - Tdap) 11/19/1962 ZOSTER VACCINE (1 of 2) 11/19/1993 PNEUMOCOCCAL VACCINE 65+ YEA RS (2 of 2 - PCV) 09/04/2013 09/04/2012 RSV VACCINE (60+ or ) (1 - 1-dose 75+ series) 11/19/2018 INFLUENZA VACCINE (#1) 2024 DIABETES ANNUAL RETINAL EXAM 03/11/2024 03/11/2023, 03/11/2023 Insurance [facility] Care Teams Toll Patrolman Relationship Specialty Start Date End Date Chaka Colin MD [address] [place] [place] [address] PCP - General Family Practice 08/09/24
--- OUTSIDE RECORDS SUMMARY | 2024-08-13 09:27 | XMS_ITS | Patient Health Summary ---
Author Organization [facility] Address [address] [facility] [place] [address] Care Team Providers Care Preventive Maintenance Engineer Name Role Phone Anne Stapleton MD Unavailable [phone] Alejandro Kellogg DO Primary Care Provider [phone] [facility],non-owned Affiliates and Associated Physician Practices is amultiple site organization consisting of ambulatory clinics and hospital sitesin [place], [place], [place] and [place]. This disclosure is being madepursuant to the Care Everywhere program and may not contain all information available regarding this patient. Last updated 18.[facility] Allergies * Adhesive Sensitivity(Rash,) Medications * [...] Comments Blood Pressure 117/74 09/04/2012 6:06 AM LETTER OF CREDIT CLERK Pulse 78 09/04/2012 6:06 AM LETTER OF CREDIT CLERK Temperature 36.9 ??C (98.4 ??F) 09/04/2012 6:06 AM CS T Respiratory Rate 18 09/04/2012 6:06 AM LETTER OF CREDIT CLERK Oxygen Saturation 98% 09/04/2012 6:06 AM LETTER OF CREDIT CLERK Inhaled Oxygen Concentration - - Weight 88.4 kg (194 lb 12.8 oz) 09/01/2012 7:04 AM LETTER OF CREDIT CLERK Height 175.3 cm (5' 9 ) 09/01/2012 7:04 AM LETTER OF CREDIT CLERK Body Mass Index 28.77 09/01/2012 7:04 AM LETTER OF CREDIT CLERK Procedures * DERMATOPATHOLOGY(Performed 07/16/2014) * DERMATOPATHOLOGY(Performed 05/29/2014) [...] PATHOLOGY TISSUE FOR DERMATOLOGY (07/16/2014 12:00 AM LETTER OF CREDIT CLERK) Only the most recent of10 resultswithin the time period is included. Result CASE: [id number] PATIENT: ANEN ELIAS PATHOLOGIC DIAGNOSIS: Left neck: SEBORRHEIC KERATOSIS, [...] out by Earnestine Smith M.D. 07/17/2014 4:22:05PM [facility] Comment: Performed at: Dermatopathology Laboratory [facility] - Department of Dermatology [address] [place] [address] [place] [address] Phone number: [phone] FAX: [phone] 07/16/2014 07/17/2014 Mauricio Chapa LAB - PATHOLOGY/CYTO LOGY ORDERABLES [facility] [address] [place] [address]. [facility] [place] [address], [facility] [phone] * XR KNEE BILAT 3 VIEWS (10/12/2012 [...] - POINT OF CARE (09/04/2012 7:10 AM LETTER OF CREDIT CLERK) Only the most recent of25 resultswithin the time period is included. Glucose WB/POC 137(H) 75 - 110 mg/dl [facility] BLOOD SPECIMEN / Unknown 09/04/2012 7:10 AM LETTER OF CREDIT CLERK 09/04/2012 12:21 PM LETTER OF CREDIT CLERK Anne Stapleton MD LAB - POINT OF CARE ORDERABLES Performing Organization Address [facility] de Phone Number [facility] [address] [place] [address] * (ABNORMAL) HGB HCT PANEL (09/03/2012 3:00 AM LETTER OF CREDIT CLERK) Only the most recent of4 resultswithin the time period is included. Hemoglobin 11.3(L) 12.0 - 17.6 gm/dL [facility] Hematocrit 34.0(L) 35.2 - 51.7 % [facility] Blood specimen (specimen) BLOOD SPECIMEN / Unknown 09/03/2012 3:00 AM LETTER OF CREDIT CLERK 09/03/2012 3:14 AM LETTER OF CREDIT CLERK Anne Stapleton MD LAB - HEMATOLOGY ORD ERABLES Performing Organization Address [facility] Co de Phone Number [facility] [address] [place] [address] * CULTURE MSSA/MRSA (08/07/2012 11:55 AM LETTER OF CREDIT CLERK) Only the most recent of2 resultswithin the time period is included. Result [facility] Comment: Final NO growth S.aureus/NO growth S.aureus (MRSA) Miscellaneous samples (specimen) SPECIMEN FROM NASAL FOSSAE / Unknown 08/07/2012 11:55 AM LETTER OF CREDIT CLERK 08/07/2012 12:14 PM LETTER OF CREDIT CLERK Narrative [facility] - 08/08/2012 7:21 PM LETTER OF CREDIT CLERK Performed By [facility];[address];[place] [address] Anne Stapleton MD LAB - MICROBIOLOGY O RDERABLES [facility] [address] [place] [address] * CBC W AUTO DIFFERENTIAL (08/07/2012 11:55 AM LETTER OF CREDIT CLERK) Only the most recent of2 resultswithin the time period is included. WBC 5.7 4.4 - 10.7 1000/mm3 [facility] RBC 4.97 3.80 - 5.40 10X6 [facility] Hemoglobin 14.1 12.0 - 17.6 gm/dL [facility] Hematocrit 41.5 35.2 - 51.7 % [facility] MCV 83.5 80.7 - 98.3 fl [facility] MCH 28.4 26.7 - 34.0 pg [facility] MCHC 34.0 30.8 - 35.9 gm/dL [facility] RDW 13.6 12.1 - 14.9 % [facility] Platelet Count 215 153 - 416 1000/mm3 [facility] MPV 9.7 9.4 - 12.9 fl [facility] Granulocytes % 55.8 44 - 73 % [facility] Immature Granulocytes % 0.2 0 - 1 % [facility] Lymphocytes % 34.6 20 - 43 % [facility] Monocytes % 7.1 5 - 13 % [facility] Eosinophils % 1.9 0 - 6 % [facility] Basophils % 0.4 0 - 2 % [facility] Granulocytes Absolute 3.17 2.01 - 7.14 [facility] Immature Granulocytes Absolute 0.01 0.00 - 0.06 [facility] Lymphocytes Absolute 1.96 1.07 - 3.94 [facility] Monocytes Absolute 0.40 0.26 - 1.07 [facility] Eosinophils Absolute 0.11 0.00 - 0.47 [facility] Basophils Absolute 0.02 0.00 - 0.08 [facility] Comment Manual Diff Not Indicated [facility] Blood specimen (specimen) BLOOD SPECIMEN / Unknown 08/07/2012 11:55 AM LETTER OF CREDIT CLERK 08/07/2012 12:13 PM LETTER OF CREDIT CLERK Anne Stapleton MD LAB - HEMATOLOGY ORD ERABLES Performing Organization Address [facility] de Phone Number [facility] [address] [place] [address] * (ABNORMAL) COMPREHENSIVE METABOLIC PANEL (08/07/2012 11:55 AM LETTER OF CREDIT CLERK) Only the most recent of2 resultswithin the time period is included. BUN 17 7.0 - 21.0 mg/dL [facility] Sodium 139 136 - 145 mmol/L [facility] Potassium 4.0 3.5 - 5.1 mmol/L [facility] Chloride 105 98.0 - 107.0 mmol/L [facility] Glucose 115(H) 74 - 106 mg/dL [facility] Creatinine 0.87 0.5 - 1.3 mg/dL [facility] AST 17 5 - 40 U/L [facility] Alkaline Phosphatase 58 38 - 126 U/L [facility] Calcium 9.2 8.5 - 10.1 mg/dL [facility] Bilirubin Total 0.5 0.2 - 1.0 mg/dL [facility] Albumin 4.2 3.4 - 5.0 gm/dL [facility] Protein Total 7.8 6.4 - 8.2 gm/dL [facility] CO2 29 22.0 - 30.0 mmol/L [facility] ALT 40 12 - 78 U/L [facility] eGFR by MDRD 87 mL/min/1.7 3m2 [facility] Anion Gap 5.0 5 - 15 mmol/L [facility] Blood specimen (specimen) BLOOD SPECIMEN / Unknown 08/07/2012 11:55 AM LETTER OF CREDIT CLERK 08/07/2012 12:13 PM LETTER OF CREDIT CLERK Anne Stapleton MD LAB - CHEMISTRY ORDMyke RODNEY Performing Organization Address [facility] Co de Phone Number [facility] [address] [place] [address] * EKG 12-LEAD (08/07/2012 11:50 AM LETTER OF CREDIT CLERK) Ventricular Rate 67 BPM [facility] Atrial Rate 67 BPM [facility] P-R Interval 178 ms [facility] QRS Duration ms 88 ms [facility] Q-T Interval ms 364 ms [facility] QTC Calculation (Bezet) 384 ms [facility] Calculated P Exmore 55 degrees [facility] Calculated R Exmore 43 degrees [facility] Calculated T Exmore 52 degrees [facility] Interpretation EKG Normal sinus rhythm Normal ECG When compared with ECG of 22-JUL-2011 11:05, No significant change was found Confirmed by MD PERCY, CLEOPATRA ([id number]) on 08/07/2012 4:16:03 PM [facility] 08/07/2012 11:5 0 AM LETTER OF CREDIT CLERK 08/07/2012 4:16 PM LETTER OF CREDIT CLERK Narrative [facility] - 08/07/2012 4:18 PM LETTER OF CREDIT CLERK Procedure Note Document, Scanned - 08/07/2012 2:15 [...] CARDIAC RHYTHM STRIP ORDER (08/16/2011 2:47 PM LETTER OF CREDIT CLERK) Narrative Transcriptions Document, Scanned - 08/16/2011 2:47 PM CST Scanned Document CARDIAC SERVICES ORD ERABLES * IP CONSULT TO HOME CARE (08/15/2011 12:16 PM LETTER OF CREDIT CLERK) Narrative Kenya Turner LPN - 08/15/2011 12:16 PM LETTER OF CREDIT CLERK Kenya Turner LPN ? 08/15/2011 12:16 PM Home care orders received. Per physician's request,[facility], , will follow upon discharge. ??All information faxed to [phone]. ??Thank you for this referral. Kenya Turner LPN, Borough Coordinator, Procedure Note Kenya Turner LPN - 08/15/2011 11:28 AM CST Home care orders received. Per physician's request,[facility],[phone], will follow upon discharge. All information faxed [phone]. Thank you for this referral. Kenya Turner LPN, Borough Coordinator, Anne Stapleton MD INPATIENT ANCILLARY CONSULT * IP CONSULT TO HOSPITALIST (08/12/2011 2:19 PM LETTER OF CREDIT CLERK) Narrative Colby Bear MD - 08/12/2011 2:19 PM LETTER OF CREDIT CLERK Colby Bear MD ? 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, resume DVT ppx- lovenox-,monitor for hematuria Monitor for etoh withdrawal [id number] Procedure Note Colby Bear MD - 08/12/2011 2:11 PM CST Seen and examined Full note to follow A/p djd knee-s/p TKR, pt/ot/dvt ppx DM-cont home meds with ssi Dyslipidemia-cont statin BPH with microscopic hematuria-treated with proscar and flomax, resume DVT ppx- lovenox-,monitor for hematuria Monitor for etoh withdrawal [id number] Anne Stapleton MD INPATIENT CONSULT OR DERABLES * CARDIAC EKG ORDER (07/24/2011 12:19 PM LETTER OF CREDIT CLERK) Narrative Transcriptions Document, Scanned - 07/24/2011 12:19 PM CST Scanned Document CARDIAC SERVICES ORD [facility] Care Teams Preventive Maintenance Engineer Relationship Specialty Start Date End Date Alejandro Kellogg DO [address] [place] [phone] PCP - General 02/23/22 Anne Stapleton MD Orthopedic Surgery 09/01/11
--- OUTSIDE RECORDS SUMMARY | 2024-08-13 09:27 | XMS_ITS | Clinical Summary ---
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
--- NOTE | ~2024-08-15 | PE_ITS ---
EXAMINATION: PET skull to mid thigh DATE: 08/15/2024 12:00 INDICATION: Lung cancer TECHNIQUE: Blood glucose level was 107 mg/dL. 9.489 mCi of 18-fluorodeoxyglucose (18-FDG) was adminis tered i.v. Low dose computed tomography (CT) images were acquired from the base of the brain to the p roximal thighs for attenuation correction and anatomic localization. Positron emission tomography (PE T) images were acquired in the same distribution beginning 54 minutes after injection. Images includi ng fused PET/CT images were reconstructed in axial, coronal, and sagittal planes. Automated exposure control technique was employed. The dose-length product was 1076.68mGy-cm. COMPARISON: None FINDINGS: Head/neck: There is symmetric increased activity in the oral cavity, laryngeal muscles and ocular muscles withou t CT correlate, likely physiologic. No pathologically enlarged cervical lymphadenopathy or suspicious foci of increased FDG uptake in the visualized head or neck. Chest: Small posterior layering left pleural effusion. There are multiple FDG avid masses and focal groundgl ass opacities in both lungs which could be either malignant or infectious in etiology. The largest ma ss measuring 8.1 x 7.7 cm at the lingula demonstrates maximal SUV of 22. There is a large central carlo topenic region within the mass which could be related to central necrosis or potentially acute intrap arenchymal abscess formation. Heart size is normal. Atherosclerotic coronary artery calcification is. No pericardial effusion. Thoracic aorta is normal in caliber. 2.8 x 1.5 cm FDG avid prevascular lymp h node with maximal SUV of 11.1. There is additional approximately 2 cm FDG avid nodule with maximal SUV of 10.0 the left hilum which is difficult to distinguish from the adjacent vasculature and is unc lear whether this is an additional pulmonary nodule located within the lung or an enlarged left hilar lymph node. Abdomen/pelvis/proximal thighs: Therefore hypodense and FDG avid hepatic masses, the largest measuring 5.3 x 3.8 cm the right hepatic lobe with maximal SUV of 10.8. There is a central photopenic region within the mass which similarly consistent with either malignancy with central necrosis or abscess. Physiologic renal accumulation an d excretion of FDG activity in the kidneys, bladder and along portions of ureters. 2 mm nonobstructin g right renal stone. There is marked wall thickening of the decompressed bladder. There are metallic densities at the enlarged prostate which measures 4.9 x 4.8 cm which could represent either surgical clips are brachytherapy seeds. The gallbladder, pancreas, spleen and bilateral adrenal glands are nor mal. Mild uptake scattered throughout the bowels without radiologic correlate, also likely physiologi c. No other abnormal foci of increased FDG uptake or pathologically enlarged lymphadenopathy in the a bdomen, pelvis or proximal thighs. Musculoskeletal: There is diffuse mild uptake throughout the axial and appendicular skeleton without associated lytic or blastic bone lesions most likely related to marrow stimulation. IMPRESSION: 1. Multiple scattered bilateral FDG avid masses and groundglass opacities, few FDG avid hepatic dominique s and enlarged FDG avid mediastinal lymph node consistent with metastatic disease which could be due to either known prior prostate cancer or potentially primary lung cancer. 2. Small posterior layering left pleural effusion. Reviewed, dictated and finalized at location A. GENCY VEHICLE TECHNICIAN IMPRESSION: 1. Multiple scattered bilateral FDG avid masses and groundglass opacities, few FDG avid hepatic masses and enlarged FDG avid mediastinal lymph node consistent with metastatic disease which could be due to either known prior prostate canc er or potentially primary lung cancer. 2. Small posterior layering left pleural effusion.
[2024-08-15 10:10] LABS: Glucose Point of Care 107 mg/dl (65-105)
--- OUTSIDE RECORDS SUMMARY | 2024-08-15 10:13 | XMS_ITS | Clinical Summary ---
Author Organization [facility] Address [address] [facility] [place] [address] Care Team Providers Care Beater Engineer Helper Name Role Phone Almas Stapleton MD Unavailable [phone] Alejandro Kellogg DO Primary Care Provider [phone] Source Comments [facility],non-owned Affiliates and Associated Physician Practices is amultiple site organization consisting of ambulatory clinics and hospital sitesin [place], [place], [place] and [place]. This disclosure is being madepursuant to the Care Everywhere program and may not contain all information available regarding this patient. Last updated 18.[facility] Allergies Active Allergy Reactions Criticality Noted [...] Knee joint replacement by other means 11/05/2011 Encounters Date Type Department Care Team Description 08/13/[address] [facility] - Pathology Lab [address] [place] [address] Preston Rowland MD Illness, unspecified from Last 3 Months Immunizations Name Administration Dates Next Due INFLUENZA [...] Comments Blood Pressure 117/74 09/04/2012 6:06 AM DESULPHURING OPERATOR Pulse 78 09/04/2012 6:06 AM DESULPHURING OPERATOR Temperature 36.9 ??C (98.4 ??F) 09/04/2012 6:06 AM CS T Respiratory Rate 18 09/04/2012 6:06 AM DESULPHURING OPERATOR Oxygen Saturation 98% 09/04/2012 6:06 AM DESULPHURING OPERATOR Inhaled Oxygen Concentration - - Weight 88.4 kg (194 lb 12.8 oz) 09/01/2012 7:04 AM DESULPHURING OPERATOR Height 175.3 cm (5' 9 ) 09/01/2012 7:04 AM DESULPHURING OPERATOR Body Mass Index 28.77 09/01/2012 7:04 AM DESULPHURING OPERATOR Plan of Treatment Health Maintenance Due Date Last Done Comments DTAP/TDAP/TD VACCINES (1 - Tdap) 11/19/1962 ZOSTER VACCINE (1 of 2) 11/19/1993 PNEUMOCOCCAL VACCINE 50+ (2 of 2 - PCV) 09/04/2013 09/04/2012 Respiratory Syncytial Virus (RSV) Vaccine Pt: or over 60 yrs (1 - 1-dose 75+ series) 11/19/2018 COVID-19 VACCINE (1 - 2023-2 5 season) 2024 INFLUENZA VACCINE (#1) 2024 [...] Documents on File Type Date Recorded Patient Surfacer Operator Expl anation Adv Directive/Living Will/POA 08/16/2011 11:00 AM * FULL RESUSCITATION (Latest Code Status on File) Date Activated Date Inactivated Comments 09/01/2012 11:08 AM 09/04/2012 12:46 PM * FULL RESUSCITATION Date Activated Date Inactivated Comments 08/12/2011 1:57 PM 08/15/2011 11:27 PM Care Teams Beater Engineer Helper Relationship Specialty Start Date End Date Alejandro Kellogg DO [address] [place] [phone] PCP - General 02/23/22 Almas Stapleton MD Orthopedic Surgery 09/01/11
--- OUTSIDE RECORDS SUMMARY | 2024-08-15 10:13 | XMS_ITS | Encounter Summary ---
Author Organization [facility] Address [address] [place] [address] Care Team Providers Care Associate Brand Manager Name Role Phone Chaka Colin MD Primary Care Provider Encounter Details Date Type Department Care Team (Late st Contact Info) Description 08/14/2024 External Device Data [facility] ABSTRACTION Provider, Abstract NO ADDRESS ON FILE Social History Tobacco Use Types Packs/Day Years Used Date Smoking Tobacco: Never Smokeless Tobacco: Never Alcohol Use Standard Drinks/Week Comments Yes 0 (1 standard drink = 0.6 oz pur e alcohol) Occasionally Sex and Gender Information Value Date Recorded Sex Assigned at Not on file Legal Sex Male 4:26 PM WELFARE INTERVIEWER Gender Identity Not on file Sexual Orientation Not on file documented as of this encounter Plan of Treatment Upcoming Encounters Date Type Department Care Team (Late st Contact Info) Description 08/17/2024 9:00 AM WELFARE INTERVIEWER Office Visit [facility] Oncology and Hematology - [place] [address] [facility] [address] [place] [address] Agustin Brown MD [address] [facility] [address] [place] [address] documented as of this encounter Visit Diagnoses Not on filedocumented in this encounter Care Teams Associate Brand Manager Relationship Specialty Start Date End Date Chaka Colin MD [address] [place] [address] [place] [address] PCP - General Family Practice 08/09/24 documented as of this encounter
--- OUTSIDE RECORDS SUMMARY | 2024-08-15 10:13 | XMS_ITS | Clinical Summary ---
Author Organization [facility] Address [address] [place] [address] Care Team Providers Care Manufacturing Engineering Intern Name Role Phone Almas Calvin MD Primary Care Provider [phone] Allergies Active Allergy Reactions Criticality Noted Date [...] on file Legal Sex Male 11:28 AM THREAD MACHINE OPERATOR Gender Identity Not on file Sexual Orientation Not on file Obstetrics History Plan of Treatment Not on file Insurance [facility] Care Teams Manufacturing Engineering Intern Relationship Specialty Start Date End Date Almas Calvin MD [address] [place] [address] PCP - General Internal Medicine 09/12/18
--- OUTSIDE RECORDS SUMMARY | 2024-08-15 10:13 | XMS_ITS | Patient Health Summary ---
Author Organization [facility] Address [address] [facility] [place] [address] Care Team Providers Care Tip Tester Name Role Phone Anne Stapleton MD Unavailable [phone] Alejandro Kellogg DO Primary Care Provider [phone] Note from [facility],non-owned Affiliates and Associated Physician Practices is amultiple site organization consisting of ambulatory clinics and hospital sitesin [place], [place], [place] and [place]. This disclosure is being madepursuant to the Care Everywhere program and may not contain all information available regarding this patient. Last updated 18.[facility] Allergies * Adhesive Sensitivity(Rash,) Medications * Be [...] Comments Blood Pressure 117/74 09/04/2012 6:06 AM AUDITOR INTERNAL Pulse 78 09/04/2012 6:06 AM AUDITOR INTERNAL Temperature 36.9 ??C (98.4 ??F) 09/04/2012 6:06 AM CS T Respiratory Rate 18 09/04/2012 6:06 AM AUDITOR INTERNAL Oxygen Saturation 98% 09/04/2012 6:06 AM AUDITOR INTERNAL Inhaled Oxygen Concentration - - Weight 88.4 kg (194 lb 12.8 oz) 09/01/2012 7:04 AM AUDITOR INTERNAL Height 175.3 cm (5' 9 ) 09/01/2012 7:04 AM AUDITOR INTERNAL Body Mass Index 28.77 09/01/2012 7:04 AM AUDITOR INTERNAL Procedures * DERMATOPATHOLOGY(Performed 07/16/2014) * DERMATOPATHOLOGY(Performed 05/29/2014) [...] PATHOLOGY TISSUE FOR DERMATOLOGY (07/16/2014 12:00 AM AUDITOR INTERNAL) Only the most recent of10 resultswithin the time period is included. Result CASE: [id number] PATIENT: ANNE ELIAS PATHOLOGIC DIAGNOSIS: Left neck: [...] out by Earnestine Smith M.D. 07/17/2014 4:22:05PM [facility] Comment: Performed at: Dermatopathology Laboratory [facility] - Department of Dermatology [address] [place] [address] [place] [address] Phone number: [phone] FAX: [phone] 07/16/2014 07/17/2014 Mauricio Chapa LAB - PATHOLOGY/CYTO LOGY ORDERABLES [facility] [address] [place] [address]. [facility] [place] [address], [place] [phone] * XR KNEE BILAT 3 VIEWS (10/12/2012 [...] - POINT OF CARE (09/04/2012 7:10 AM AUDITOR INTERNAL) Only the most recent of25 resultswithin the time period is included. Glucose WB/POC 137(H) 75 - 110 mg/dl [facility] BLOOD SPECIMEN / Unknown 09/04/2012 7:10 AM AUDITOR INTERNAL 09/04/2012 12:21 PM AUDITOR INTERNAL Anne Stapleton MD LAB - POINT OF CARE ORDERABLES Performing Organization Address [facility] de Phone Number [facility] [address] [place] [address] * (ABNORMAL) HGB HCT PANEL (09/03/2012 3:00 AM AUDITOR INTERNAL) Only the most recent of4 resultswithin the time period is included. Hemoglobin 11.3(L) 12.0 - 17.6 gm/dL [facility] Hematocrit 34.0(L) 35.2 - 51.7 % [facility] Blood specimen (specimen) BLOOD SPECIMEN / Unknown 09/03/2012 3:00 AM AUDITOR INTERNAL 09/03/2012 3:14 AM AUDITOR INTERNAL Anne Stapleton MD LAB - HEMATOLOGY ORD ERABLES Performing Organization Address [facility] Co de Phone Number [facility] [address] [place] [address] * CULTURE MSSA/MRSA (08/07/2012 11:55 AM AUDITOR INTERNAL) Only the most recent of2 resultswithin the time period is included. Result [facility] Comment: Final NO growth S.aureus/NO growth S.aureus (MRSA) Miscellaneous samples (specimen) SPECIMEN FROM NASAL FOSSAE / Unknown 08/07/2012 11:55 AM AUDITOR INTERNAL 08/07/2012 12:14 PM AUDITOR INTERNAL Narrative [facility] - 08/08/2012 7:21 PM AUDITOR INTERNAL Performed By [facility];[address];[place] [address] Anne Stapleton MD LAB - MICROBIOLOGY O RDERABLES [facility] [address] [place] [address] * CBC W AUTO DIFFERENTIAL (08/07/2012 11:55 AM AUDITOR INTERNAL) Only the most recent of2 resultswithin the time period is included. WBC 5.7 4.4 - 10.7 1000/mm3 [facility] RBC 4.97 3.80 - 5.40 10X6 [facility] Hemoglobin 14.1 12.0 - 17.6 gm/dL [facility] Hematocrit 41.5 35.2 - 51.7 % [facility] MCV 83.5 80.7 - 98.3 fl [facility] MCH 28.4 26.7 - 34.0 pg [facility] MCHC 34.0 30.8 - 35.9 gm/dL [facility] RDW 13.6 12.1 - 14.9 % [facility] Platelet Count 215 153 - 416 1000/mm3 [facility] MPV 9.7 9.4 - 12.9 fl [facility] Granulocytes % 55.8 44 - 73 % [facility] Immature Granulocytes % 0.2 0 - 1 % [facility] Lymphocytes % 34.6 20 - 43 % [facility] Monocytes % 7.1 5 - 13 % [facility] Eosinophils % 1.9 0 - 6 % [facility] Basophils % 0.4 0 - 2 % [facility] Granulocytes Absolute 3.17 2.01 - 7.14 [facility] Immature Granulocytes Absolute 0.01 0.00 - 0.06 [facility] Lymphocytes Absolute 1.96 1.07 - 3.94 [facility] Monocytes Absolute 0.40 0.26 - 1.07 [facility] Eosinophils Absolute 0.11 0.00 - 0.47 [facility] Basophils Absolute 0.02 0.00 - 0.08 [facility] Comment Manual Diff Not Indicated [facility] Blood specimen (specimen) BLOOD SPECIMEN / Unknown 08/07/2012 11:55 AM AUDITOR INTERNAL 08/07/2012 12:13 PM AUDITOR INTERNAL Anne Stapleton MD LAB - HEMATOLOGY ORD ERABLES Performing Organization Address [facility] de Phone Number [facility] [address] [place] [address] * (ABNORMAL) COMPREHENSIVE METABOLIC PANEL (08/07/2012 11:55 AM AUDITOR INTERNAL) Only the most recent of2 resultswithin the time period is included. BUN 17 7.0 - 21.0 mg/dL [facility] Sodium 139 136 - 145 mmol/L [facility] Potassium 4.0 3.5 - 5.1 mmol/L [facility] Chloride 105 98.0 - 107.0 mmol/L [facility] Glucose 115(H) 74 - 106 mg/dL [facility] Creatinine 0.87 0.5 - 1.3 mg/dL [facility] AST 17 5 - 40 U/L [facility] Alkaline Phosphatase 58 38 - 126 U/L [facility] Calcium 9.2 8.5 - 10.1 mg/dL [facility] Bilirubin Total 0.5 0.2 - 1.0 mg/dL [facility] Albumin 4.2 3.4 - 5.0 gm/dL [facility] Protein Total 7.8 6.4 - 8.2 gm/dL [facility] CO2 29 22.0 - 30.0 mmol/L [facility] ALT 40 12 - 78 U/L [facility] eGFR by MDRD 87 mL/min/1.7 3m2 [facility] Anion Gap 5.0 5 - 15 mmol/L [facility] Blood specimen (specimen) BLOOD SPECIMEN / Unknown 08/07/2012 11:55 AM AUDITOR INTERNAL 08/07/2012 12:13 PM AUDITOR INTERNAL Anne Stapleton MD LAB - CHEMISTRY ORDMyke RODNEY Performing Organization Address [facility] Co de Phone Number [facility] [address] [place] [address] * EKG 12-LEAD (08/07/2012 11:50 AM AUDITOR INTERNAL) Ventricular Rate 67 BPM [facility] Atrial Rate 67 BPM [facility] P-R Interval 178 ms [facility] QRS Duration ms 88 ms [facility] Q-T Interval ms 364 ms [facility] QTC Calculation (Bezet) 384 ms [facility] Calculated P [place] 55 degrees [facility] Calculated R [place] 43 degrees [facility] Calculated T [place] 52 degrees [facility] Interpretation EKG Normal sinus rhythm Normal ECG When compared with ECG of 22-JUL-2011 11:05, No significant change was found Confirmed by MD PERCY, CLEOPATRA ([id number]) on 08/07/2012 4:16:03 PM [facility] 08/07/2012 11:5 0 AM AUDITOR INTERNAL 08/07/2012 4:16 PM AUDITOR INTERNAL Narrative [facility] - 08/07/2012 4:18 PM AUDITOR INTERNAL Procedure Note Document, Scanned - 08/07/2012 2:15 [...] CARDIAC RHYTHM STRIP ORDER (08/16/2011 2:47 PM AUDITOR INTERNAL) Narrative Transcriptions Document, Scanned - 08/16/2011 2:47 PM CST Scanned Document CARDIAC SERVICES ORD ERABLES * IP CONSULT TO HOME CARE (08/15/2011 12:16 PM AUDITOR INTERNAL) Narrative Kenya Turner LPN - 08/15/2011 12:16 PM AUDITOR INTERNAL Kenya Turner LPN ? 08/15/2011 12:16 PM Home care orders received. Per physician's request,[facility], , will follow upon discharge. ??All information faxed to [phone]. ??Thank you for this referral. Kenya Turner LPN, Cco, Procedure Note Kenya Turner LPN - 08/15/2011 11:28 AM CST Home care orders received. Per physician's request,[facility],[phone], will follow upon discharge. All information faxed [phone]. Thank you for this referral. Kenya Turner LPN, Cco, Anne Stapleton MD INPATIENT ANCILLARY CONSULT * IP CONSULT TO HOSPITALIST (08/12/2011 2:19 PM AUDITOR INTERNAL) Narrative Colby Bear MD - 08/12/2011 2:19 PM AUDITOR INTERNAL Colby Bear MD ? 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
--- OUTSIDE RECORDS SUMMARY | 2024-08-15 10:13 | XMS_ITS | Encounter Summary ---
Author Organization [facility] Address [address] [place] [address] Care Team Providers Care Bakery Pastry Internship Name Role Phone Chaka Colin MD Primary [...] on file Legal Sex Male 4:26 PM PROFESSOR OF VIOLIN Gender Identity Not on file Sexual Orientation Not on file documented as of this encounter Plan of Treatment Upcoming Encounters Date Type Department Care Team (Late st Contact Info) Description 08/17/2024 9:00 AM PROFESSOR OF VIOLIN Office Visit [facility] Oncology and Hematology - [place] [address] [facility] [address] [place] [address] Agustin Brown MD [address] [facility] [address] [place] [address] documented as of this encounter Visit Diagnoses Not on filedocumented in this encounter Care Teams Bakery Pastry Internship Relationship Specialty Start Date End Date Chaka Colin MD [address] [place] [address] [place] [address] PCP - General Family Practice 08/09/24 documented as of this encounter
--- OUTSIDE RECORDS SUMMARY | 2024-08-15 10:13 | XMS_ITS | Clinical Summary ---
Author Organization [facility] Address [address] [place] [address] Care Team Providers Care Junior Software Developer Name Role Phone Chaka Colin MD Primary Care Provider Allergies No known active allergies Medications sildenafil citrate (SILDENAFIL, PULM.HYPERTENSIO N, ORAL) Take by mouth daily. Active Active Problems No known active problems Encounters Date Type Department Care Team Description 08/14/2024 External Device Data STL ABSTRACTION Provider, Abstract 08/14/2024 External Device Data STL ABSTRACTION Provider, Abstract 08/14/2024 External Device Data STL ABSTRACTION Provider, Abstract 08/08/2024 11:30 AM MUSICAL STRING MAKER Office Visit [facility] Oncology and Hematology - [place] [address] [address] Agustin Brown MD Liver mass (Primary [...] on file Legal Sex Male 4:26 PM MUSICAL STRING MAKER Gender Identity Not on file Sexual Orientation Not on file Last Filed Vital Signs Vital Sign Reading Time Taken Comments Blood Pressure 112/68 08/08/2024 11:37 AM MUSICAL STRING MAKER Pulse 74 08/08/2024 11:37 AM MUSICAL STRING MAKER Temperature 36.2 ??C (97.2 ??F) 08/08/2024 11:[address] Respiratory Rate 15 08/08/2024 11:37 AM MUSICAL STRING MAKER Oxygen Saturation 92% 08/08/2024 11:37 AM MUSICAL STRING MAKER Inhaled Oxygen Concentration - - Weight 84.4 kg (186 lb) 08/08/2024 11:37 AM MUSICAL STRING MAKER Height 175.3 cm (5' 9 ) 08/08/2024 11:37 AM MUSICAL STRING MAKER Body Mass Index 27.47 08/08/2024 11:37 AM MUSICAL STRING MAKER Plan of Treatment Upcoming Encounters Date Type Department Care Team (Late st Contact Info) Description 08/17/2024 9:00 AM MUSICAL STRING MAKER Office Visit [facility] Oncology and Hematology [facility] [address] [facility] [address] [place] [address] Agustin Brown MD [address] [facility] [address] [place] [address] Health Maintenance Due Date Last [...] DIABETES ANNUAL RETINAL EXAM 03/11/2024 03/11/2023, 03/11/2023 [place] ([place]) Prev entative Visit/Annual Wellness Visit 07/11/2024 Insurance [facility] Care Teams Junior Software Developer Relationship Specialty Start Date End Date Chaka Colin MD [address] [facility] [place] [address] PCP - General Family Practice 08/09/24
--- OUTSIDE RECORDS SUMMARY | 2024-08-15 10:13 | XMS_ITS | Referral Summary ---
Author Organization [facility] Address [address] [facility] [place] [address] Care Team Providers Care Electrode Turner And Finisher Name Role Phone Almas Stapleton MD Unavailable [phone] Alejandro Kellogg DO Primary Care Provider [phone] Source Comments [facility],non-owned Affiliates and Associated Physician Practices is amultiple site organization consisting of ambulatory clinics and hospital sitesin [place], [place], [place] and [place]. This disclosure is being madepursuant to the Care Everywhere program and may not contain all information available regarding this patient. Last updated 18.[facility] Encounters Date Type Department Care Team Description 08/13/2024 Lab Requisition [facility] - Pathology Lab [address] [place] [address] Preston Rowland MD Illness, unspecified from Last 3 Months Allergies Active Allergy Reactions Criticality Noted Date [...] Comments Blood Pressure 117/74 09/04/2012 6:06 AM GRAPHICS COORDINATOR Pulse 78 09/04/2012 6:06 AM GRAPHICS COORDINATOR Temperature 36.9 ??C (98.4 ??F) 09/04/2012 6:06 AM CS T Respiratory Rate 18 09/04/2012 6:06 AM GRAPHICS COORDINATOR Oxygen Saturation 98% 09/04/2012 6:06 AM GRAPHICS COORDINATOR Inhaled Oxygen Concentration - - Weight 88.4 kg (194 lb 12.8 oz) 09/01/2012 7:04 AM GRAPHICS COORDINATOR Height 175.3 cm (5' 9 ) 09/01/2012 7:04 AM GRAPHICS COORDINATOR Body Mass Index 28.77 09/01/2012 7:04 AM GRAPHICS COORDINATOR Plan of Treatment Not on file Administered Medications Advance Directives Documents on File Type Date Recorded 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
--- OUTSIDE RECORDS SUMMARY | 2024-08-15 10:13 | XMS_ITS | Referral Summary ---
Author Organization [facility] Address [address] [place] [address] Care Team Providers Care Band Nailer Name Role Phone Almas Calvin MD Primary Care Provider [phone] Allergies Active Allergy Reactions Criticality Noted Date [...] on file Legal Sex Male 11:28 AM GAME MASTER Gender Identity Not on file Sexual Orientation Not on file Plan of Treatment Not on file Insurance Robert PONCE CONNIE Pelletier [id number] [facility] Care Teams Band Nailer Relationship Specialty Start Date End Date Almas Calvin MD [address] [place] [address] PCP - General Internal Medicine 09/12/18
--- OUTSIDE RECORDS SUMMARY | 2024-08-15 10:13 | XMS_ITS | Encounter Summary ---
Author Organization [facility] Address 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 DRY CELL Gender Identity Not on file Sexual Orientation Not on file documented as of this encounter Plan of Treatment Upcoming Encounters Date Type Department Care Team (Late st Contact Info) Description 08/17/2024 9:00 AM BATTERY ASSEMBLER DRY CELL Office Visit [facility] Oncology and Hematology - [place] [address] [facility] [address] [place] [address] Agustin Brown MD [address] [facility] [address] [place] [address] documented as of this encounter Visit Diagnoses Not on filedocumented in this encounter Care Teams Credit Checker Relationship Specialty Start Date End Date Chaka Colin MD [address] [place] [address] [place] [address] PCP - General Family Practice 08/09/24 documented as of this encounter
--- OUTSIDE RECORDS SUMMARY | 2024-08-15 10:13 | XMS_ITS | Encounter Summary ---
Author Organization [facility] Address [address] [facility] [place] [address] Care Team Providers Care Trimmer Sorter Name Role Phone Almas Stapleton MD Unavailable [phone] Alejandro Kellogg DO Primary Care Provider [phone] Encounter Details Date Type Department Care Team (Late st Contact Info) Description 08/13/[address] [facility] - Pathology Lab [address] [place] [address] Preston Rowland MD [address] [address] Illness, unspecified Social History Tobacco Use Types Packs/Day Years [...] as of this encounter Plan of Treatment Pending Results Name Type Priority Associated Diagnoses Date /Time SLIDE PREP HISTOLOGY Pathology Cytology Routine Illness, unspecified 08/10/2024 documented as of this encounter Visit Diagnoses Diagnosis Illness, unspecified documented in this encounter Care Teams Trimmer Sorter Relationship Specialty Start Date End Date Alejandro Kellogg DO [address] [place] [address] PCP - General 02/23/22 Almas Stapleton MD Orthopedic Surgery 09/01/11 documented as of this encounter
== END 2024-08-15 09:32 | disposition home or self-care (01) ==
PROVIDERS: PCP Family Medicine; Visit Provider Internal Medicine Hematology & Oncology
DX: R93.0 Abnormal findings on diagnostic imaging of skull and head, not elsewhere classified (principal); C34.12 Malignant neoplasm of upper lobe, left bronchus or lung
CPT/HCPCS: 78815; A9552

== ENCOUNTER 2024-08-17 08:37 | Outpatient (CLI) | payer OTHER, SELFPAY ==
--- OUTSIDE RECORDS SUMMARY | 2024-08-17 08:45 | XMS_ITS | Clinical Summary ---
Author Organization [facility] Address [address] [place] [address] Care Team Providers Care Wood Tank Erector Name Role Phone Almas Calvin MD Primary Care Provider [phone] Allergies Active Allergy Reactions Criticality Noted Date [...] on file Legal Sex Male 11:28 AM FINISHER [employer] Gender Identity Not on file Sexual Orientation Not on file Obstetrics History Plan of Treatment Not on file Insurance [facility] Care Teams Wood Tank Erector Relationship Specialty Start Date End Date Almas Calvin MD [address] [place] [address] PCP - General Internal Medicine 09/12/18
--- OUTSIDE RECORDS SUMMARY | 2024-08-17 08:45 | XMS_ITS | Patient Health Summary ---
Author Organization [facility] Address [address] [facility] [place] [address] Care Team Providers Care Powder Core Tester Name Role Phone Anne Stapleton MD Unavailable [phone] Alejandro Kellogg DO Primary Care Provider [phone] Note from [facility],non-owned Affiliates and Associated Physician Practices is amultiple site organization consisting of ambulatory clinics and hospital sitesin [place], [place], [place] and [place]. This disclosure is being madepursuant to the Care Everywhere program and may not contain all information available regarding this patient. Last updated 18.[facility] Allergies * Adhesive Sensitivity(Rash,) Medications [...] Comments Blood Pressure 117/74 09/04/2012 6:06 AM CHILD DEVELOPMENT CONSULTANT Pulse 78 09/04/2012 6:06 AM CHILD DEVELOPMENT CONSULTANT Temperature 36.9 C (98.4 F) 09/04/2012 6:06 AM CHILD DEVELOPMENT CONSULTANT Respiratory Rate 18 09/04/2012 6:06 AM CHILD DEVELOPMENT CONSULTANT Oxygen Saturation 98% 09/04/2012 6:06 AM CHILD DEVELOPMENT CONSULTANT Inhaled Oxygen Concentration - - Weight 88.4 kg (194 lb 12.8 oz) 09/01/2012 7:04 AM CHILD DEVELOPMENT CONSULTANT Height 175.3 cm (5' 9 ) 09/01/2012 7:04 AM CHILD DEVELOPMENT CONSULTANT Body Mass Index 28.77 09/01/2012 7:04 AM CHILD DEVELOPMENT CONSULTANT Procedures * DERMATOPATHOLOGY(Performed 07/16/2014) * DERMATOPATHOLOGY(Performed 05/29/2014) [...] PATHOLOGY TISSUE FOR DERMATOLOGY (07/16/2014 12:00 AM CHILD DEVELOPMENT CONSULTANT) Only the most recent of10 resultswithin the time period is included. Result CASE: [id number] PATIENT: ANNE ELIAS PATHOLOGIC DIAGNOSIS: Left neck: [...] by Earnestine Smith M.D. 07/17/2014 4:22:05PM [facility] Comment: Performed at: Dermatopathology Laboratory [facility] - Department of Dermatology [address] [place] [address] [place] [address] Phone number: [phone] FAX: [phone] 07/16/2014 07/17/2014 Mauricio Chapa LAB - PATHOLOGY/CYTO LOGY ORDERABLES [facility] D[facility] [address] [place] [address]. [facility] [place] [address], [facility] [phone] * XR KNEE BILAT 3 VIEWS (10/12/2012 2:41 PM CDT) Anatomical Region Laterality Modality Lower Extremity Radiographic Aminah ging Narrative 10/12/2012 2:41 PM CDT Hanny Velez Jessica RT(R) 10/12/2012 2:41 PM SEE PROGRESS NOTES FOR FINAL RESULT Procedure Note Hanny Lopez, RT(R) - 10/12/2012 2:41 PM CDT SEE PROGRESS NOTES FOR FINAL RESULT Anne Stapleton MD DIAGNOSTIC IMAGING O RDERABLES * (ABNORMAL) GLUCOSE - POINT OF CARE (09/04/2012 7:10 AM CHILD DEVELOPMENT CONSULTANT) Only the most recent of25 resultswithin the time period is included. Glucose WB/POC 137(H) 75 - 110 mg/dl [facility] BLOOD SPECIMEN / Unknown 09/04/2012 7:10 AM CHILD DEVELOPMENT CONSULTANT 09/04/2012 12:21 PM CHILD DEVELOPMENT CONSULTANT Anne Stapleton MD LAB - POINT OF CARE ORDERABLES Performing Organization Address [facility] de Phone Number [facility] [address] [place] [address] * (ABNORMAL) HGB HCT PANEL (09/03/2012 3:00 AM CHILD DEVELOPMENT CONSULTANT) Only the most recent of4 resultswithin the time period is included. Hemoglobin 11.3(L) 12.0 - 17.6 gm/dL [facility] Hematocrit 34.0(L) 35.2 - 51.7 % [facility] Blood specimen (specimen) BLOOD SPECIMEN / Unknown 09/03/2012 3:00 AM CHILD DEVELOPMENT CONSULTANT 09/03/2012 3:14 AM CHILD DEVELOPMENT CONSULTANT Anne Stapleton MD LAB - HEMATOLOGY ORD ERABLES Performing Organization Address [facility] de Phone Number [facility] [address] [place] [address] * CULTURE MSSA/MRSA (08/07/2012 11:55 AM CHILD DEVELOPMENT CONSULTANT) Only the most recent of2 resultswithin the time period is included. Result [facility] Comment: Final NO growth S.aureus/NO growth S.aureus (MRSA) Miscellaneous samples (specimen) SPECIMEN FROM NASAL FOSSAE / Unknown 08/07/2012 11:55 AM CHILD DEVELOPMENT CONSULTANT 08/07/2012 12:14 PM CHILD DEVELOPMENT CONSULTANT Narrative [facility] - 08/08/2012 7:21 PM CHILD DEVELOPMENT CONSULTANT Performed By [facility];[address];[place] [address] Anne Stapleton MD LAB - MICROBIOLOGY O RDERABLES [facility] [address] [place] [address] * CBC W AUTO DIFFERENTIAL (08/07/2012 11:55 AM CHILD DEVELOPMENT CONSULTANT) Only the most recent of2 resultswithin the time period is included. WBC 5.7 4.4 - 10.7 1000/mm3 [facility] RBC 4.97 3.80 - 5.40 10X6 [facility] Hemoglobin 14.1 12.0 - 17.6 gm/dL [facility] Hematocrit 41.5 35.2 - 51.7 % [facility] MCV 83.5 80.7 - 98.3 fl [facility] MCH 28.4 26.7 - 34.0 pg [facility] MCHC 34.0 30.8 - 35.9 gm/dL [facility] RDW 13.6 12.1 - 14.9 % [facility] Platelet Count 215 153 - 416 1000/mm3 [facility] MPV 9.7 9.4 - 12.9 fl [facility] Granulocytes % 55.8 44 - 73 % [facility] Immature Granulocytes % 0.2 0 - 1 % [facility] Lymphocytes % 34.6 20 - 43 % [facility] Monocytes % 7.1 5 - 13 % [facility] Eosinophils % 1.9 0 - 6 % [facility] Basophils % 0.4 0 - 2 % [facility] Granulocytes Absolute 3.17 2.01 - 7.14 [facility] Immature Granulocytes Absolute 0.01 0.00 - 0.06 [facility] Lymphocytes Absolute 1.96 1.07 - 3.94 [facility] Monocytes Absolute 0.40 0.26 - 1.07 [facility] Eosinophils Absolute 0.11 0.00 - 0.47 [facility] Basophils Absolute 0.02 0.00 - 0.08 [facility] Comment Manual Diff Not Indicated [facility] Blood specimen (specimen) BLOOD SPECIMEN / Unknown 08/07/2012 11:55 AM CHILD DEVELOPMENT CONSULTANT 08/07/2012 12:13 PM CHILD DEVELOPMENT CONSULTANT Anne Stapleton MD LAB - HEMATOLOGY ORD JACOB Performing Organization Address [facility] Co de Phone Number [facility] [address] [place] [address] * (ABNORMAL) COMPREHENSIVE METABOLIC PANEL (08/07/2012 11:55 AM CHILD DEVELOPMENT CONSULTANT) Only the most recent of2 resultswithin the time period is included. BUN 17 7.0 - 21.0 mg/dL [facility] Sodium 139 136 - 145 mmol/L [facility] Potassium 4.0 3.5 - 5.1 mmol/L [facility] Chloride 105 98.0 - 107.0 mmol/L [facility] Glucose 115(H) 74 - 106 mg/dL [facility] Creatinine 0.87 0.5 - 1.3 mg/dL [facility] AST 17 5 - 40 U/L [facility] Alkaline Phosphatase 58 38 - 126 U/L [facility] Calcium 9.2 8.5 - 10.1 mg/dL [facility] Bilirubin Total 0.5 0.2 - 1.0 mg/dL [facility] Albumin 4.2 3.4 - 5.0 gm/dL [facility] Protein Total 7.8 6.4 - 8.2 gm/dL [facility] CO2 29 22.0 - 30.0 mmol/L [facility] ALT 40 12 - 78 U/L [facility] eGFR by MDRD 87 mL/min/1.7 3m2 [facility] Anion Gap 5.0 5 - 15 mmol/L [facility] Blood specimen (specimen) BLOOD SPECIMEN / Unknown 08/07/2012 11:55 AM CHILD DEVELOPMENT CONSULTANT 08/07/2012 12:13 PM CHILD DEVELOPMENT CONSULTANT Anne Stapleton MD LAB - CHEMISTRY YAZAN RODNEY Performing Organization Address City/[facility]/ZIP Co de Phone Number [facility] [address] [place] [address] * EKG 12-LEAD (08/07/2012 11:50 AM CHILD DEVELOPMENT CONSULTANT) Ventricular Rate 67 BPM [facility] Atrial Rate 67 BPM [facility] P-R Interval 178 ms [facility] QRS Duration ms 88 ms [facility] Q-T Interval ms 364 ms [facility] QTC Calculation (Bezet) 384 ms [facility] Calculated P [place] 55 degrees [facility] Calculated R [place] 43 degrees [facility] Calculated T [place] 52 degrees [facility] Interpretation EKG Normal sinus rhythm Normal ECG When compared with ECG of 22-JUL-2011 11:05, No significant change was found Confirmed by MD PERCY, CLEOPATRA ([id number]) on 08/07/2012 4:16:03 PM [facility] 08/07/2012 11:5 0 AM CHILD DEVELOPMENT CONSULTANT 08/07/2012 4:16 PM CHILD DEVELOPMENT CONSULTANT Narrative [facility] - 08/07/2012 4:18 PM CHILD DEVELOPMENT CONSULTANT Procedure Note Document, Scanned - 08/07/2012 2:15 PM CST Transcriptions Document, Scanned - 08/07/2012 4:18 PM CST Anne Stapleton MD ECG ORDERABLES [facility] * XR KNEE 3 VW LEFT (09/20/2011 3:25 PM CDT) Anatomical Region Laterality Modality Lower Extremity Other Narrative 09/20/2011 3:25 PM CDT RT Barrett 09/20/2011 3:25 PM See progress notes for results Procedure Note Ely Villanueva, RT - 09/20/2011 3:25 PM CDT See progress notes for results Anne Stapleton MD DIAGNOSTIC IMAGING O RDERABLES * CARDIAC RHYTHM STRIP ORDER (08/16/2011 2:47 PM CHILD DEVELOPMENT CONSULTANT) Narrative Transcriptions Document, Scanned - 08/16/2011 2:47 PM CST Scanned Document CARDIAC SERVICES ORD ERABLES * IP CONSULT TO HOME CARE (08/15/2011 12:16 PM CHILD DEVELOPMENT CONSULTANT) Narrative Kenya Turner LPN - 08/15/2011 12:16 PM CHILD DEVELOPMENT CONSULTANT Kenya Turner LPN 08/15/2011 12:16 PM Home care orders received. Per physician's request,[facility], , will follow upon discharge. All information faxed to [phone]. Thank you for this referral. Kenya Turner LPN, Web Portal Developer, Procedure Note Kenya Turner LPN - 08/15/2011 11:28 AM CST Home care orders received. Per physician's request,[facility],[phone], will follow upon discharge. All information faxed [phone]. Thank you for this referral. 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, resume DVT ppx- lovenox-,monitor for hematuria Monitor for etoh withdrawal [id number] Procedure Note Colby Bear MD - 08/12/2011 2:11 PM CST Seen and examined Full note to follow A/p djd knee-s/p TKR, pt/ot/dvt ppx DM-cont home meds with ssi Dyslipidemia-cont statin 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
--- OUTSIDE RECORDS SUMMARY | 2024-08-17 08:45 | XMS_ITS | Referral Summary ---
Author Organization [facility] Address [address] [facility] [place] [address] Care Team Providers Care Operations Manager Name Role Phone Almas Stapleton MD Unavailable [phone] Alejandro Kellogg DO Primary Care Provider [phone] Source Comments [facility],non-owned Affiliates and Associated Physician Practices is amultiple site organization consisting of ambulatory clinics and hospital sitesin [place], [place], [place] and [place]. This disclosure is being madepursuant to the Care Everywhere program and may not contain all information available regarding this patient. Last updated 18.[facility] Encounters Date Type Department Care Team Description 08/16/2024 Lab Requisition [facility] - Pathology Lab [address] [place] [address] Preston Rowland MD Illness, unspecified 08/13/2024 Lab Requisition [facility] - Pathology Lab [address] [place] [address] Preston Rowland MD Illness, unspecified from Last [...] Comments Blood Pressure 117/74 09/04/2012 6:06 AM WATER/WASTEWATER ENGINEER Pulse 78 09/04/2012 6:06 AM WATER/WASTEWATER ENGINEER Temperature 36.9 C (98.4 F) 09/04/2012 6:06 AM WATER/WASTEWATER ENGINEER Respiratory Rate 18 09/04/2012 6:06 AM WATER/WASTEWATER ENGINEER Oxygen Saturation 98% 09/04/2012 6:06 AM WATER/WASTEWATER ENGINEER Inhaled Oxygen Concentration - - Weight 88.4 kg (194 lb 12.8 oz) 09/01/2012 7:04 AM WATER/WASTEWATER ENGINEER Height 175.3 cm (5' 9 ) 09/01/2012 7:04 AM WATER/WASTEWATER ENGINEER Body Mass Index 28.77 09/01/2012 7:04 AM WATER/WASTEWATER ENGINEER Plan of Treatment Not on file Administered Medications Advance Directives Documents on File Type Date Recorded Patient Fish Tender Expl anation Adv Directive/Living Will/POA 08/16/2011 11:00 AM * FULL RESUSCITATION (Latest Code Status on File) Date Activated Date Inactivated Comments 09/01/2012 11:08 AM 09/04/2012 12:46 PM * FULL RESUSCITATION Date Activated Date Inactivated Comments 08/12/2011 1:57 PM 08/15/2011 11:27 PM Care Teams Operations Manager Relationship Specialty Start Date End Date Alejandro Kellogg DO [facility] [place] [address] PCP - General 02/23/22 Almas Stapleton MD Orthopedic Surgery 09/01/11
--- OUTSIDE RECORDS SUMMARY | 2024-08-17 08:45 | XMS_ITS | Clinical Summary ---
Author Organization [facility] Address [address] [facility] [place] [address] Care Team Providers Care Boat Laborer Name Role Phone Almas Stapletno MD Unavailable Alejandro Kellogg DO Primary Care Provider [phone] Source Comments [facility],non-owned Affiliates and Associated Physician Practices is amultiple site organization consisting of ambulatory clinics and hospital sitesin [place], [place], [place] and [place]. This disclosure is being madepursuant to the Care Everywhere program and may not contain all information available regarding this patient. Last updated 18.[facility] Allergies Active Allergy Reactions Criticality [...] Department Care Team Description 08/16/2024 Lab Requisition [facility] - Pathology Lab [address] [place] [address] Preston Rowland MD Illness, unspecified 08/13/2024 Lab Requisition [facility] - Pathology Lab [address] [place] [address] Preston Rowland MD Illness, unspecified from Last [...] Comments Blood Pressure 117/74 09/04/2012 6:06 AM SHORT GOODS DRIER Pulse 78 09/04/2012 6:06 AM SHORT GOODS DRIER Temperature 36.9 C (98.4 F) 09/04/2012 6:06 AM SHORT GOODS DRIER Respiratory Rate 18 09/04/2012 6:06 AM SHORT GOODS DRIER Oxygen Saturation 98% 09/04/2012 6:06 AM SHORT GOODS DRIER Inhaled Oxygen Concentration - - Weight 88.4 kg (194 lb 12.8 oz) 09/01/2012 7:04 AM SHORT GOODS DRIER Height 175.3 cm (5' 9 ) 09/01/2012 7:04 AM SHORT GOODS DRIER Body Mass Index 28.77 09/01/2012 7:04 AM SHORT GOODS DRIER Plan of Treatment Health Maintenance Due Date [...] 2024 07/22/2011 DEPRESSION SCREENING 07/11/2024 MEDICARE AWV CALENDAR YEAR 2024 HEPATITIS B VACCINE Aged [...] Documents on File Type Date Recorded Patient Ordained Minister Expl anation Adv Directive/Living Will/POA 08/16/2011 11:00 AM * FULL RESUSCITATION (Latest Code Status on File) Date Activated Date Inactivated Comments 09/01/2012 11:08 AM 09/04/2012 12:46 PM * FULL RESUSCITATION Date Activated Date Inactivated Comments 08/12/2011 1:57 PM 08/15/2011 11:27 PM Care Teams Boat Laborer Relationship Specialty Start Date End Date Alejandro Kellogg DO [facility] [place] [address] PCP - General 02/23/22 Almas Stapleton MD Orthopedic Surgery 09/01/11
--- OUTSIDE RECORDS SUMMARY | 2024-08-17 08:45 | XMS_ITS | Encounter Summary ---
Author Organization [facility] Address [address] [place] [address] Care Team Providers Care Senior Commissary Agent Name Role Phone Almas Stapleton MD Unavailable [phone] Alejandro Kellogg DO Primary Care Provider [phone] Encounter Details Date Type Department Care Team (Late st Contact Info) Description 08/13/2024 Lab Requisition [facility]ician [facility] - Pathology Lab [address] [place] [address] Preston Rowland MD [address] [address] Illness, unspecified Social History Tobacco [...] unspecified documented in this encounter Care Teams Senior Commissary Agent Relationship Specialty Start Date End Date Alejandro Kellogg DO [address] [place] [address] PCP - General 02/23/22 Almas Stapleton MD Orthopedic Surgery 09/01/11 documented as of this encounter
--- OUTSIDE RECORDS SUMMARY | 2024-08-17 08:45 | XMS_ITS | Clinical Summary ---
[facility] Address [address] [place] [address] Care Team Providers Care Enterprise Services Manager Name Role Phone Chaka Colin MD [...] STL ABSTRACTION Provider, Abstract 08/08/2024 11:30 AM FORECLOSURE CLERK Office Visit [facility] Oncology and Hematology - [place] [address] [address] Agustin Brown MD Liver mass [...] on file Legal Sex Male 4:26 PM FORECLOSURE CLERK Gender Identity Not on file Sexual Orientation Not on file Last Filed Vital Signs Vital Sign Reading Time Taken Comments Blood Pressure 112/68 08/08/2024 11:37 AM FORECLOSURE CLERK Pulse 74 08/08/2024 11:37 AM FORECLOSURE CLERK Temperature 36.2 C (97.2 F) 08/08/2024 11:37 AM FORECLOSURE CLERK Respiratory Rate 15 08/08/2024 11:37 AM FORECLOSURE CLERK Oxygen Saturation 92% 08/08/2024 11:37 AM FORECLOSURE CLERK Inhaled Oxygen Concentration - - Weight 84.4 kg (186 lb) 08/08/2024 11:37 AM FORECLOSURE CLERK Height 175.3 cm (5' 9 ) 08/08/2024 11:37 AM FORECLOSURE CLERK Body Mass Index 27.47 08/08/2024 11:37 AM FORECLOSURE CLERK Plan of Treatment Upcoming Encounters Date Type Department Care Team (Late st Contact Info) Description 08/17/2024 9:00 AM FORECLOSURE CLERK Office Visit [facility] Oncology and Hematology [facility] [address] [facility] [address] [place] [address] Agustin Brown MD [address] [facility] [address] [place] [address] Health Maintenance Due Date Last [...] RETINAL EXAM 03/11/2024 03/11/2023, 03/11/2023 [place] Prev entative Visit/Annual Wellness Visit 07/11/2024 [facility] Care Teams Enterprise Services Manager Relationship Specialty Start Date End Date Chaka Colin MD [facility] [place] [address] PCP - General Family Practice 08/09/24
--- OUTSIDE RECORDS SUMMARY | 2024-08-17 08:45 | XMS_ITS | Referral Summary ---
Author Organization [facility] Address [address] [place] [address] Care Team Providers Care Exec. Creative Director Name Role Phone Almas Calvin MD Primary Care Provider [phone] Allergies Active Allergy Reactions Criticality Noted Date [...] on file Legal Sex Male 11:28 AM DISABILITY SERVICES COORDINATOR Gender Identity Not on file Sexual Orientation Not on file Plan of Treatment Not on file Insurance Robert PONCE CONNIE Pelletier [id number] [facility] Care Teams Exec. Creative Director Relationship Specialty Start Date End Date Almas Cavlin MD [address] [place] [address] PCP - General Internal Medicine 09/12/18
--- OUTSIDE RECORDS SUMMARY | 2024-08-17 08:45 | XMS_ITS | Encounter Summary ---
Author Organization [facility] Address [address] [facility] [place] [address] Care Team Providers Care Real Estate Broker Name Role Phone Almas Stapleton MD Unavailable [phone] Alejandro Kellogg DO Primary Care Provider [phone] Encounter Details Date Type Department Care Team (Late st Contact Info) Description 08/16/2024 Lab Requisition [facility]ician [facility] - Pathology Lab [address] [place] [address] Preston Rowland MD [address] [address] Illness, unspecified Social History Tobacco [...] unspecified documented in this encounter Care Teams Real Estate Broker Relationship Specialty Start Date End Date Alejandro Kellogg DO [address] [place] [address] PCP - General 02/23/22 Almas Stapleton MD Orthopedic Surgery 09/01/11 documented as of this encounter
[2024-08-17 08:49] LABS: Basophils Percent Auto 0.3 % (0.2-1.2); Eosinophils Absolute Auto 0.1 K/mm3 (0-0.3); Hematocrit 35.5 % (42.0-52.0); Hemoglobin 10.6 g/dL (14.0-18.0); Immature Granulocyte Absolute 0.04 K/mm3 (0.00-0.031); Immature Granulocyte Percent A 0.6 % (0-0.5); Mean Corpuscular HGB Conc 29.9 g/dl (32-36); Mean Corpuscular Hemoglobin 24.1 pg (26-34); Mean Corpuscular Volume 80.9 fl (80-100); Mean Platelet Volume 7.7 fl (7.4-10.4); Monocytes Absolute Auto 0.5 K/mm3 (0.1-0.6); Monocytes Percent Auto 7.8 % (2.6-8.5); Neutrophils Absolute Auto 5.4 K/mm3 (1.3-6.7); Neutrophils Percent Auto 80.3 % (45.5-73.1); Platelet Count Result 294 k/mm3 (150-375); Red Blood Count 4.39 M/mm3 (4.6-6.20); Red Cell Distribution Width 16.9 % (11.5-14.5); White Blood Count 6.7 K/mm3 (4.5-10.0)
[2024-08-17 08:51] LABS: Blood Urea Nitrogen 8 mg/dL (8-26); Carbon Dioxide 26 mmol/L (22-30); Chloride 101 mmol/L (98-109); Estimated Glomerular Filt Rate > 60; Glucose 112 mg/dL (70-105); Ionized Calcium (POC) 1.18 mmol/L (1.11-1.31); Potassium 4.5 mmol/L (3.5-4.9); Sodium 137 mmol/L (138-146)
[2024-08-17 08:53] LABS: Platelet Estimate Adequate (Adequate)
[2024-08-17 08:55] LABS: Anisocytosis 1+; Hypochromasia 1+; Ovalocytes 1+; Schistocytes None Seen
[2024-08-17 09:38] LABS: Alanine Aminotransferase 21 U/L (6-50); Albumin Level 3.6 g/dL (3.5-5.1); Alkaline Phosphatase 91 U/L (38-126); Anion Gap 9 mmol/L (4-12); Aspartate Amino Transferase 25 U/L (17-59); Bilirubin,Total 0.5 mg/dL (0.2-1.3); Blood Urea Nitrogen 10 mg/dL (9-20); Calcium 9.1 mg/dL (8.4-10.2); Carbon Dioxide 27 mmol/L (22-30); Chloride 101 mmol/L (98-107); Estimated Glomerular Filt Rate > 60; Glucose 111 mg/dL (65-110); Potassium 4.5 mmol/L (3.4-5.0); Sodium 137 mmol/L (137-145)
[2024-08-17 10:07] LABS: Prostate Specific Antigen 0.3 ng/mL (< OR = 4.0)
== END 2024-08-17 08:38 | disposition home or self-care (01) ==
LOC: ANHLAB 08:38
PROVIDERS: PCP Family Medicine; Visit Provider Internal Medicine Hematology & Oncology
DX: C61 Malignant neoplasm of prostate (principal)
CPT/HCPCS: 36415; 80047; 80053; 84153; 85025

== ENCOUNTER 2024-09-17 00:25 | Day surgery (SDC) | payer OTHER, SELFPAY ==
[2024-08-31 13:35] VITALS: BMI 26.8
--- NOTE | 2024-08-31 13:47 | PC.NURSE ---
Report to the Outpatient Waiting Room, entrance under the green pavilion located off [facility], at time __1000am on date ___09/17/24 ____. Planned Procedure Time: __1200pm .? Time changes happen often and if your time is changed the preop area will call you the afternoon before. - You and your visitor will be asked to self-screen and do not enter if you have any COVID symptoms. Please call surgeon if you need to reschedule. - A mask is optional within the hospital at this time. Patients may have clear liquids (water, carbonated beverages, clear teas, apple juice) until 3 hours prior to surgery with a maximum of 20 ounces. - No food from midnight until time of surgery and no smoking, or chewing tobacco (or any form of nicotine). No chewing gum, candy or mints. (0900am) Take only the following medications with a SIP of water on the morning of surgery: ____None DO NOT STOP ANY OF YOUR OTHER PRESCRIPTION MEDICATIONS PRIOR TO SURGERY EXCEPT THE FOLLOWING Hold all vitamins and supplements for 3 days per anesthesiologist. Please no make-up, nail eritrean, hairspray, perfume, deodorant, or body powder the day of surgery.? No jewelry (including any body piercings) or valuables the day of surgery, leave them at home.? Please take a shower or bath the night before, or the morning of, surgery with an antibacterial soap.? Wear comfortable, loose fitting clothing.? - Jewelry must be removed prior to entering the operating room.? Rings and piercings that are not removed may be cut off. - The hospital will not accept responsibility for valuables.? - Please leave all valuables, including medications, at home the day of surgery. If you are going home after surgery, a licensed fork truck driver must drive you home.? - NO public transportation without another adult if you receive anesthesia. - We recommend that an adult stay with you for 24 hours following discharge. - We also recommend that you do not drive, make important decision, drink alcoholic beverages, or take any drugs that were not prescribed by your health care provider for at least 24 hours after your discharge time. Follow any additional instructions given to you from your surgeon. Telephone instructions given to _Patient & and asked if any additional questions and then verbalized understanding. Patient advised to call surgeon office or pre surgery nurse liaison [phone] if any additional questions.
--- NOTE | ~2024-09-17 | XR_ITS ---
EXAMINATION: XR chest port-a-cath/central DATE: 09/17/2024 11:33 INDICATION: Port placement TECHNIQUE: A single frontal view of the chest was obtained. COMPARISON: Chest 2 views 08/15/2024, PET/CT 08/15/2024 FINDINGS: There are airspace opacities in the mid and lower lung zones, left worse than right. There is a small left pleural effusion. No pneumothorax. The heart size is normal. Calcified left hilar lym ph nodes are consistent with old granulomatous disease. There is a right internal jugular port with t ip at superior cavoatrial junction. IMPRESSION: 1. Port tip at superior cavoatrial junction. 2. Worsened airspace opacities in the mid and lower lung zones, left worse than right, likely a combi nation of malignancy and pneumonia. 3. Small left pleural effusion. Reviewed, dictated and finalized at location B. IMPRESSION: 1. Port tip at superior cavoatrial junction. 2. Worsened airspace opacities in the mid and lower lung zones, left worse than right, likely a combination of malignancy and pneumonia. 3. Small left pleural effusion.
--- NOTE | ~2024-09-17 | XR_ITS ---
EXAMINATION: XR fl guide central line place DATE: 09/17/2024 11:55 INDICATION: Port placement. TECHNIQUE: 3 intraoperative fluoroscopic views of the chest were obtained. I was not present. Fluoros copy exposure time was 22 seconds. COMPARISON: Chest single view 09/17/2024 FINDINGS: There is a right internal jugular port with tip at superior cavoatrial junction. IMPRESSION: 1. Port tip at superior cavoatrial junction. Reviewed, dictated and finalized at location B.
--- OUTSIDE RECORDS SUMMARY | 2024-09-17 00:27 | XMS_ITS | Clinical Summary ---
Author Organization [facility] Address [address] [place] [address] Care Team Providers Care Tire Mounter Name Role Phone Almas Calvin MD Primary Care Provider [phone] Allergies Active Allergy Reactions Criticality Noted Date [...] on file Legal Sex Male 11:28 AM PAPER SLITTER Gender Identity Not on file Sexual Orientation Not on file Obstetrics History Plan of Treatment Not on file Insurance [facility] Care Teams Tire Mounter Relationship Specialty Start Date End Date Almas Calvin MD [address] [place] [address] PCP - General Internal Medicine 09/12/18
--- OUTSIDE RECORDS SUMMARY | 2024-09-17 00:27 | XMS_ITS | Encounter Summary ---
Author Organization [facility] Address [address] [place] [address] Care Team Providers Care Medical Malpractice Paralegal Name Role Phone Almas Stapleton MD Unavailable [phone] Alejandro Kellogg DO Primary Care Provider [phone] Encounter Details Date Type Department Care Team (Late st Contact Info) Description 08/13/2024 Lab Requisition [facility] - Pathology Lab [address] [place] [address] Preston Rowland MD [address] [address] Illness, unspecified Social History Tobacco [...] unspecified documented in this encounter Care Teams Medical Malpractice Paralegal Relationship Specialty Start Date End Date Alejandro Kellogg DO [address] [place] [id number] PCP - General 02/23/22 Almas Stapleton MD Orthopedic Surgery 09/01/11 documented as of this encounter
--- OUTSIDE RECORDS SUMMARY | 2024-09-17 00:27 | XMS_ITS | Referral Summary ---
Author Organization [facility] Address [address] [place] [address] Care Team Providers Care Occupational Safety And Health Manager Name Role Phone Almas Stapleton MD Unavailable [phone] Alejandro Kellogg DO Primary Care Provider [phone] Source Comments [facility],non-owned Affiliates and Associated Physician Practices is amultiple site organization consisting of ambulatory clinics and hospital sitesin [place] and [place]. This disclosure is being madepursuant to the Care Everywhere program and may not contain all information available regarding this patient. Last updated 18.[facility] Encounters Date Type Department Care Team Description 08/16/2024 Lab Requisition [facility] - Pathology Lab [address] [place] [address] Preston Rowland MD Illness, unspecified 08/13/2024 Lab Requisition [facility] - Pathology Lab [address] [place] [address] Preston Rowland MD Illness, unspecified from Last [...] Comments Blood Pressure 117/74 09/04/2012 6:06 AM FIRER MARINE Pulse 78 09/04/2012 6:06 AM FIRER MARINE Temperature 36.9 C (98.4 F) 09/04/2012 6:06 AM FIRER MARINE Respiratory Rate 18 09/04/2012 6:06 AM FIRER MARINE Oxygen Saturation 98% 09/04/2012 6:06 AM FIRER MARINE Inhaled Oxygen Concentration - - Weight 88.4 kg (194 lb 12.8 oz) 09/01/2012 7:04 AM FIRER MARINE Height 175.3 cm (5' 9 ) 09/01/2012 7:04 AM FIRER MARINE Body Mass Index 28.77 09/01/2012 7:04 AM FIRER MARINE Plan of Treatment Not on file Administered Medications Advance Directives Documents on File Type Date Recorded Patient Associate Professor Of Counseling Expl anation Adv Directive/Living Will/POA 08/16/2011 11:00 AM * FULL RESUSCITATION (Latest Code Status on File) Date Activated Date Inactivated Comments 09/01/2012 11:08 AM 09/04/2012 12:46 PM * FULL RESUSCITATION Date Activated Date Inactivated Comments 08/12/2011 1:57 PM 08/15/2011 11:27 PM Care Teams Occupational Safety And Health Manager Relationship Specialty Start Date End Date Alejandro Kellogg DO [facility] [place] [address] PCP - General 02/23/22 Almas Stapleton MD Orthopedic Surgery 09/01/11
--- OUTSIDE RECORDS SUMMARY | 2024-09-17 00:27 | XMS_ITS | Clinical Summary ---
Author Organization [facility] Address [address] [facility] [place] [address] Care Team Providers Care Daily Sales Audit Clerk Name Role Phone Almas Stapleton MD Unavailable [phone] Alejandro Kellogg DO Primary Care Provider [phone] Source Comments [facility],non-owned Affiliates and Associated Physician Practices is amultiple site organization consisting of ambulatory clinics and hospital sitesin [place], [place], [place] and [place]. This disclosure is being madepursuant to the Care Everywhere program and may not contain all information available regarding this patient. Last updated 18.[facility] Allergies Active Allergy Reactions Criticality Noted [...] Department Care Team Description 08/16/2024 Lab Requisition [facility] - Pathology Lab [address] [place] [address] Preston Rowland MD Illness, unspecified 08/13/2024 Lab Requisition [facility] - Pathology Lab [address] [place] [address] Preston Rowland MD Illness, unspecified from Last [...] Comments Blood Pressure 117/74 09/04/2012 6:06 AM STOPPER SETTER Pulse 78 09/04/2012 6:06 AM STOPPER SETTER Temperature 36.9 C (98.4 F) 09/04/2012 6:06 AM STOPPER SETTER Respiratory Rate 18 09/04/2012 6:06 AM STOPPER SETTER Oxygen Saturation 98% 09/04/2012 6:06 AM STOPPER SETTER Inhaled Oxygen Concentration - - Weight 88.4 kg (194 lb 12.8 oz) 09/01/2012 7:04 AM STOPPER SETTER Height 175.3 cm (5' 9 ) 09/01/2012 7:04 AM STOPPER SETTER Body Mass Index 28.77 09/01/2012 7:04 AM STOPPER SETTER Plan of Treatment Health Maintenance Due Date [...] Documents on File Type Date Recorded Patient Production Operations Inspector Expl anation Adv Directive/Living Will/POA 08/16/2011 11:00 AM * FULL RESUSCITATION (Latest Code Status on File) Date Activated Date Inactivated Comments 09/01/2012 11:08 AM 09/04/2012 12:46 PM * FULL RESUSCITATION Date Activated Date Inactivated Comments 08/12/2011 1:57 PM 08/15/2011 11:27 PM Care Teams Daily Sales Audit Clerk Relationship Specialty Start Date End Date Alejandro Kellogg DO [facility] [place] [address] PCP - General 02/23/22 Almas Stapleton MD Orthopedic Surgery 09/01/11
--- OUTSIDE RECORDS SUMMARY | 2024-09-17 00:27 | XMS_ITS | Referral Summary ---
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
--- OUTSIDE RECORDS SUMMARY | 2024-09-17 00:28 | XMS_ITS | Continuity of Care Document ---
Author Organization [facility] Address [address] [place] [address] Phone Care Team Providers Care Manager Life Name Role Phone Ambriz Katelynn BURGESS Unavailable Unavailable Procedures Procedure Date THERAPEUTIC EXERCISES MANUAL THERAPY HOT/COLD PACK ELECTRIC STIMULATION UNATT THERAPEUTIC EXERCISES MANUAL THERAPY HOT/COLD PACK ELECTRIC STIMULATION UNATT THERAPEUTIC EXERCISES MANUAL THERAPY HOT/COLD PACK ELECTRIC STIMULATION UNATT THERAPEUTIC EXERCISES MANUAL THERAPY HOT/COLD PACK ELECTRIC STIMULATION UNATT THERAPEUTIC EXERCISES MANUAL THERAPY HOT/COLD PACK ELECTRIC STIMULATION UNATT PT EVALUATION THERAPEUTIC EXERCISES MANUAL THERAPY HOT/COLD PACK ELECTRIC STIMULATION UNATT Advance Directives Directive Yes / No Effective Date File Name No Information Encounters Encounter Description Practice Location Reason(s) For Visit Diagnoses Date Provider Providers Copied on Encounter [facility], [address] [address], [place], [place], [id number], tel:[phone] [place] No Information 0201 3 Ambriz Katelynn. [address] [facility], [address], [place], [address], [place]. tel: [phone] [facility], [address] [address], [place], [place], [id number], tel:[phone] [place] No Information November-0 1-201 3 Ambriz Katelynn. [address] [place] [address], [address], [place], [facility], . tel: [phone] Referring Provider: Moises Phillip [address] [address], [place], [place], [facility]. tel:[phone] [place], [place] [address], [place], [place], [id number], tel:[phone] [place] No Information Oct-2 9-201 3 Ambriz Katelynn. [address] [place] [address], [address], [place], [facility], . tel: [phone] Referring Provider: Moises Phillip [address] [address], [place], [place], [facility]. tel:[phone] [place], [place] [address] [address], [place], [place], [id number], tel:[phone] [place] No Information Oct-2 4-201 3 Abmriz Katelynn. [address] [place] [address], [address], [place], [facility], . tel: [phone] Referring Provider: Moises Phillip [address] [address], [place], [place], [facility]. tel:[phone] [facility] [address] [facility] [address], [place], [id number], tel:[phone] [place] No Information Oct-2 2-201 3 Ambriz Katelynn. [address] [place] [address], [address], [place], [facility], . tel: [phone] Referring Provider: Moises Phillip [address], [facility]. tel:[phone] [facility], [address] [place], [place] [address] [address], [place], [place], [id number], tel:[phone] [place] No Information Oct-1 8-201 3 Ambriz Katelynn. [address] [place] [address] Drive, [address], [place], [place], [facility], . tel:[phone] Referring Provider: Moises Phillip [facility] [address], [place], [address]. tel:[phone] [facility] [place], [address] [facility] [address], [place], [place], [id number], [place] tel:[phone] [place] Pain in joint involving lower leg Apr-1 6-201 3 Pb Pace. [address] [facility], [address], [place], [place], [facility], . tel:[phone] Referring Provider: Moises Phillip [facility] [address], [place], [address]. tel:[phone] Family History Family Member Type Diagnosis Age At Onset No Information Payers Payer name Insurance type Covered libertarian ID Maeve morris(s) [employer] [place] [id number] Social History Type Description Quantity Date Captured Comments Sex Male Smoking Status No Information Chief Complaint And Reason For Visit No Information Reason For Referral Reason For Referral No Information History Of Present Illness Encounter Date Complaint History Of Prese nt Illness No Information Functional Status Date Functional Assessmen t No Information Instructions Date Instruction Additional Infor mation No Information Assessments Type Assessment Date No Information Patient Care Teams Name Effective Dates (start - stop) Status Members No Information
--- OUTSIDE RECORDS SUMMARY | 2024-09-17 00:28 | XMS_ITS | Clinical Summary ---
Author Organization [facility] Denice varma Shari Address [address] [place] [address] Care Team Providers Care Military Communications Specialist Name Role Phone Chaka Colin MD Primary Care Provider Allergies No known active allergies Medications sildenafil citrate (SILDENAFIL, PULM.HYPERTENSI ON, ORAL) Take by mouth daily. Active bicalutamide (CASODEX) 50 mg tablet Take 1 Tablet (50 mg) by mouth daily. 30 Tablet 1 08/17/2024 Active abiraterone (ZYTIGA) 250 mg tablet Take 4 Tablets (1,000 mg) by mouth daily before breakfast. 120 Tablet 4 08/17/2024 Active predniSONE (DELTASONE) 5 mg tablet Take 1 Tablet (5 mg) by mouth 2 times daily with meals. 60 Tablet 4 08/17/2024 Active Active Problems No known active problems Encounters Date Type Department Care Team Description 09/14/2024 External Device Data STL ABSTRACTION Provider, Abstract 08/28/2024 External Device Data STL ABSTRACTION Provider, Abstract 08/17/2024 9:00 AM LINK TRAINER MAINTENANCE WORKER Office Visit [facility] Oncology and Hematology - [place] [address] [place] [address] Agustin Brown MD Prostate cancer (CMS/HCC) (Primary Dx) 08/17/2024 Specialty Pharmacy [facility] [address] [place] [id number] Abbie Garcia, PHARMACIST 08/17/[address] [facility] Hematology [place] [address] [place] [address] Agustin Brown MD 08/14/2024 External Device Data STL ABSTRACTION Provider, Abstract 08/14/2024 External Device Data STL ABSTRACTION Provider, Abstract 08/14/2024 External Device Data STL ABSTRACTION Provider, Abstract 08/08/2024 11:30 AM LINK TRAINER MAINTENANCE WORKER Office Visit [facility] Hematology [place] [address] [place] [address] Agustin Brown MD Liver mass [...] on file Legal Sex Male 4:26 PM LINK TRAINER MAINTENANCE WORKER Gender Identity Not on file Sexual Orientation Not on file Last Filed Vital Signs Vital Sign Reading Time Taken Comments Blood Pressure 129/72 08/17/2024 9:00 AM LINK TRAINER MAINTENANCE WORKER Pulse 72 08/17/2024 9:00 AM LINK TRAINER MAINTENANCE WORKER Temperature 36.3 C (97.4 F) 08/17/2024 9:00 AM LINK TRAINER MAINTENANCE WORKER Respiratory Rate 16 08/17/2024 9:00 AM LINK TRAINER MAINTENANCE WORKER Oxygen Saturation 91% 08/17/2024 9:00 AM LINK TRAINER MAINTENANCE WORKER Inhaled Oxygen Concentration - - Weight 83.9 kg (185 lb) 08/17/2024 9:00 AM LINK TRAINER MAINTENANCE WORKER Height 175.3 cm (5' 9 ) 08/08/2024 11:37 AM LINK TRAINER MAINTENANCE WORKER Body Mass Index 27.32 08/08/2024 11:37 AM LINK TRAINER MAINTENANCE WORKER Plan of Treatment Upcoming Encounters Date Type Department Care Team (Late st Contact Info) Description 10/16/2024 9:00 AM CDT Office Visit [facility] Oncology and Hematology [facility] [address] [place] [address] Agustin Brown MD [address] [facility] [address] [place] [address] Health Maintenance Due Date Last Done Comments DIABETES ANNUAL FOOT EXAM 11/19/1961 DIABETES HBA1C Q 6 MONTHS 11/19/1961 DIABETES MICROALBUMIN ANNUAL SCREEN 11/19/1961 LDL CHOLESTEROL ANNUAL 11/19/1961 DTAP/TDAP/TD VACCINES (1 - Tdap) 11/19/1962 ZOSTER VACCINE (1 of 2) 11/19/1993 PNEUMOCOCCAL VACCINE 50+ YEA RS (2 of 2 - PCV) 09/04/2013 09/04/2012 RSV VACCINE (60+ or ) (1 - 1-dose 75+ series) 11/19/2018 INFLUENZA VACCINE (#1) 2024 DIABETES ANNUAL RETINAL EXAM 03/11/2024 03/11/2023, 03/11/2023 Preventative Visit- Commercial 07/11/2024 Procedures Procedure Name Priority Date/Time Associated Diagnosis Comments BASIC METABOLIC PANEL Routine 08/17/2024 8:58 AM LINK TRAINER MAINTENANCE WORKER from Last 3 Months Results * BASIC METABOLIC PANEL (08/17/2024 8:58 AM LINK TRAINER MAINTENANCE WORKER) Blood Agustin Brown MD CHEMISTRY ORDERABLES Final Resu lt from Last 3 Months Insurance [facility] [employer] Medicare Part D Care Teams Military Communications Specialist Relationship Specialty Start Date End Date Chaka Colin MD [facility] [facility] [place] [address] PCP - General Family Practice 08/09/24
--- OUTSIDE RECORDS SUMMARY | 2024-09-17 00:28 | XMS_ITS | Continuity of Care Document ---
Author Organization [facility] [place] [facility] Address [address] [place] [phone] Phone Care Team Providers Care Singe Machine Operator Name Role Phone Wilian Martinez ODssica Unavailable Unavailable Allergies, Adverse Reactions, Alerts Substance Reaction Status Criticality No Known Allergies Active No Inform ation Medications Medication Instructions Dosage Effective Dates (start - stop) Status Comments simvastatin 40 mg tablet take 1 tablet by oral route every day in the evening 40 MG - Active Procedures Procedure Date No Charge Optomap Fundus Photos 024 Office/outpatient Visit, Est No Charge Refraction Post-op Follow-up Visit Post-op Follow-up Visit Tecnis Symfony Optiblue Toric Yellow Tin t No Charge Refraction Post-op Follow-up Visit Post-op Follow-up Visit Tecnis Symfony Optiblue Toric Yellow Tin t Remove Cataract, Insert Lens No Charge Refraction No Charge GDX Retina No Charge Optomap Fundus Photos 023 Corneal Topography Office/outpatient Visit, Est IOLMaster IOLMaster Fundus Photography W/ Report No Charge Refraction Eye Exam & Treatment Fundus Photography W/ Report Eye Exam & Treatment Fundus Photography W/ Report Office/outpatient Visit, Est No Charge Refraction Corneal Topography No Charge Refraction No Charge GDX Retina Office/outpatient Visit, Est IOLMaster IOLMaster Fundus Photography W/ Report Eye Exam & Treatment No Charge Refraction Fundus Photography W/ Report Eye Exam & Treatment Fundus Photography W/ Report Eye Exam & Treatment Eye Exam & Treatment Fundus Photography W/ Report Eye Exam & Treatment Fundus Photography W/ Report Office/outpatient Visit, Est No Charge No Refraction Corneal Pachymetry Fundus Photography W/ Report Eye Exam & Treatment Fundus Photography W/ Report Eye Exam & Treatment Eye Exam & Treatment Advance Directives Directive Yes / No Effective Date File Name Other Directive No N/A N/A WARNING:The information contained in this section is historical and is provided for information only and does not constitute a legal document or any assurance that the information is still accurate. Please verify the information with the ybarra of the legal document before using it for clinical purposes. Encounters Encounter Description Practice Location Reason(s) For Visit Diagnoses Date Provider Providers Copied on Encounter Office/outpa tient Visit, Est [facility], [facility], [address], [place], [place], [address], [place] tel:[phone] SEC Berny ROSALES Professional 6 month IOL check (chief complaint) PrediabetesOt her secondary cataract, bilateralPres ence of intraocular lensVitreous degeneration, right eye 4 Juan OD Radha. [address], [address], [place], [place], [address], [place]. tel:[phone] Referring Provider: Carly Guzman, [address] [place] [address] [address], [place], [address] . tel:[phone] [facility], [address], [place], [place], [address], [place] tel:[phone] SEC Berny ROSALES Professional 2 Week CE/IOL Symfony/Tor ic PO (chief complaint) Post op visit 4 Juan Cedenossica. [address], [address], [place], [place], [address], [place]. tel:[phone] Referring Provider: Carly Guzman, [facility] [address], [place], [address] . tel:[phone] [facility], [address], [place], [place], [address], [place] tel:[phone] SEC Berny ROSALES Professional Post-Op (chief complaint) Post op visit 3 Isabel Carroll. [address], [place], [place], [address], [place]. tel:[phone] Referring Provider: Carly Guzman, [address], [place], [address] . tel:[phone] [facility], [address], [place], [place], [address], [place] tel:[phone] [facility] [place] No Information 3 Horacio Rivera. [address], [address], [place], [place], [address], [place]. tel:[phone] Referring Provider: Carly Guzman, [address] [place] [address] [address], [place], [address] . tel:[phone] [facility], [address], [place], [place], [address], tel:[phone] SEC Berny ROSALES Professional 2 Week CE/IOL Symfony Toric PO (chief complaint) Post op visit Nov 0- 3 Isabel Carroll. [address] [place] [address] [address], [address], [place], [place], [address], [place]. tel:[phone] Referring Provider: Carly Guzman, [facility] [address], [place], [address] . tel:[phone] [facility], [address], [place], [place], [address], tel:[phone] SEC Berny ROSALES Professional Post-Op (chief complaint) Post op visit Apr- 3 Juan OD Radha. [facility] [address], [address], [place], [place], [address], [place]. tel:[phone] Referring Provider: Carly Guzman, [facility] [address], [place], [address] . tel:[phone] [facility], [address] [place] [address] [address], [place], [place], [address], [place] tel:[phone] [facility] No Information Apr- 3 Horacio Rivera. [address], [address], [place], [place], [address], [place]. tel:[phone] Referring Provider: Carly Guzman, [facility] [address], [place], [address] . tel:[phone] Office/outpa tient Visit, Est [facility], [address], [place], [place], [address], [place] tel:[phone] SEC [place] Cataract evaluation (chief complaint) Combined forms of age-related cataract, bilateralHist ory of laser assisted in situ keratomileusi sType 2 diabetes mellitus without complications Nodular corneal degeneration, left eyeGlaucoma suspect low risk, right eye Sep- 3 Horacio Rivera. [facility] [address], [address], [place], [place], [address], . tel:[phone] Referring Provider: Carly Hall OD K, [facility] [address], [place], [address] . tel:[phone] [facility], [facility] [address], [place], [place], [address], tel:[phone] SEC [place] Professional Complete Exam (chief complaint) History of laser assisted in situ keratomileusi sType 2 diabetes mellitus without complications Combined forms of age-related cataract, bilateralMGD (meibomian gland dysfunction)B ilateral dry eyes Sep- 3 Isabel Carroll. [facility] [address], [address], [place], [place], [address], [place]. tel:[phone] Referring Provider: Miguel Cowan, [facility] [address], [place], [address] . tel:[phone] [facility], [facility] [address], [place], [place], [address], [place] tel:[phone] SEC Yordan Adams Complete exam (chief complaint) Type 2 diabetes mellitus without complications Combined forms of age-related cataract, bilateralNodu lar corneal degeneration, bilateralLong term (current) use of oral hypoglycemic drugs 2 Horacio Rivera. [facility] [address], [address], [place], [place], [address], [place]. tel:[phone] Referring Provider: Miguel Cowan, [facility] [address], [place], [address] . tel:[phone] Office/outpa tient Visit, [facility], [address] [place], [place] [address], [place], [place], [address], tel:[phone] SEC Abbott N Lindbergh Cataract Check (chief complaint) Combined forms of age-related cataract, bilateralType 2 diabetes mellitus without complications History of laser assisted in situ keratomileusi sNodular corneal degeneration, left eye 0-202 1 Horacio Rivera. [facility] [address], [address], [place], [place], [address], [place]. tel:[phone] Referring Provider: Miguel Cowan, [facility] [address], [place], [address] . tel:[phone] Office/outpa tient Visit, [facility], [address] [place], [place] [address], [place], [place], [address], tel:[phone] SEC Abbottradha Watsonh 6 mo cataract check (chief complaint) Combined forms of age-related cataract, bilateralType 2 diabetes mellitus without complications History of laser assisted in situ keratomileusi s Nov-0 9-202 0 Horacio Rivera. [facility] [address], [address], [place], [place], [address], [place]. tel:[phone] Referring Provider: Miguel Cowan, [facility] [address], [place], [address] . tel:[phone] [facility], [address] [place], [place] [address], [place], [place], [address], [place] tel:[phone] SEC Abbott N Lindbergh Complete Exam (chief complaint) Type 2 diabetes mellitus without complications Combined forms of age-related cataract, bilateralHist ory of laser assisted in situ keratomileusi s Nov-0 8-201 9 Horacio Rivera. [facility] [address], [address], [place], [place], [address], [place]. tel:[phone] Referring Provider: Miguel Cowan, [facility] [address], [place], [address] . tel:[phone] [employer] [facility], [address], [place], [place], [address], tel:[phone] SEC Abbott N Lindbergh Complete Exam (chief complaint) Type 2 diabetes mellitus without complications Combined forms of age-related cataract, bilateralHist ory of laser assisted in situ keratomileusi sNodular corneal degeneration, left eye 8 Horacio Miguel. [address], [address], [place], [place], [address], . tel:[phone] Referring Provider: Miguel Cowan, [address], [place], [address] . tel:[phone] [employer] [facility], [facility] [address], [place], [place], [address], tel:[phone] SEC Yordan N Lindbergh complete exam (chief complaint) Type 2 diabetes mellitus without complications intermediate (current) use of oral hypoglycemic drugsCombined forms of age-related cataract, bilateral 7 Horacioavani Rivera. [facility] [address], [address], [place], [place], [address], . tel:[phone] Referring Provider: Miguel Cowan, [address], [place], [address] . tel:[phone] [employer] [facility], [address], [place], [place], [address], tel:[phone] SEC Abbott N Lindbergh Blurry vision (chief complaint) No Information 5 Horacio Rivera. [address], [address], [place], [place], [address], [place]. tel:[phone] Referring Provider: Miguel Cowan, [address], [place], [address] . tel:[phone] [employer] [facility], [address], [place], [place], [address], [place] tel:[phone] No Information 5 Heydi Pan. [address], [address], [place], [address], [place]. tel:[phone] [employer] [facility], [address], [place], [place], [address], [place] tel:[phone] SEC Yordan N Lindbergh irritation (chief complaint) No Information 4 Horacio Rivera. [facility] [address], [address], [place], [place], [address], [place]. tel:[phone] Referring Provider: Miguel Cowan, [address], [place], [address] . tel:[phone] Office/outpa tient Visit, [facility] [facility], [facility] [address], [place], [place], [address], [place] [phone] SEC Abbott N Lindbergh Complete Exam (chief complaint) No Information 3 Horacio Rivera. [facility] [address], [address], [place], [place], [address], [place]. tel:[phone] Referring Provider: Miguel Cowan, [facility] [address], [place], [address] . tel:[phone] [employer] [facility], [address], [place], [place], [address], [place] tel:[phone] SEC Abbott N Lindbergh blurry vision (chief complaint) No Information 1 Horacio Rivera. [facility] [address] [employer], [address], [place], [place], [address], [place]. tel:[phone] Referring Provider: Miguel Cowan, [address], [place], [address] . tel:[phone] [facility], [address], [place], [place], [address], tel:[phone] SEC Yordan Adams No Information 5-201 0 Horacio Rivera. [address], [address], [place], [place], [address], . tel:[phone] [facility], [address], [place], [place], [address], tel:[phone] SEC Yordan Adams No Information 9[address] Horacio Rivera. [address], [address], [place], [place], [address], [place]. tel:[phone] Family History Family Member Type Diagnosis Age At Onset Mother Problem (finding) diabetes melli tus in first degree relative Payers Payer name Insurance type Covered democrat ID Maeve harveyvenecia(s) [employer] [id number] Social History Type Description Quantity Date Captured Comments Alcohol Use Details 3 drinks daily Caffeine Use Details No Tobacco Use Status Ex-cigarette smoker 024 Smoking Status Former smoker Smoking Tobacco Use Details Cigarette: Age Started: 15, Age Stopped: 53, Years Used 36 Cigarette: No Details Available Sex Male Gender Identity Male Chief Complaint And Reason For Visit From encounter dated '03/06/2024 14:30'. 6 month IOL check (chief complaint). Description: The 78 year old patient presents for evaluation of 6 month IOL check in the right eye and left eye. Pt has Symfony Toric IOL OU. Pt states vision seems to be doing well, denies any change to vision since last visit and states he can see better whilegolfing than he could previously. Reason For Referral Reason For Referral No Information Plan Of Treatment Date Type Action Status Goal Tobacco cessation counseling completed Goal Tobacco cessation counseling completed Patient Education Learning About YAG Lase r Capsulotomy completed Patient Education Cataract Surgery: What to Expect at Home completed Patient Education Type 2 Diabetes: Care I nstructions completed Patient Education Cataracts: Care Instruc tijeyson completed Patient Education Cataracts: Care Instruc tions completed History Of Present Illness Encounter Date Complaint History Of Prese nt Illness 6 month IOL check The 78 year ol d patient presents for evaluation of 6 month IOL check in the right eye and left eye. Pt has Symfony Toric IOL OU. Pt states vision seems to be doing well, denies any change to vision since last visit and states he can see better while golfing than he could previously. 2 Week CE/IOL Symfony/Toric PO T he 77 year old patient presents for evaluation of 2 Week CE/IOL Symfony/Toric PO in the left eye. Pt states that vision seem okay in OS and pt states no pain or discomfort. Pt states that it takes a while for them to read something without Glasses. Pt has all gtts and understands how to take them as instructed. Post-Op The 77 year old patient presents for a 1 day post op CE with Symfony Toric IOL OS. Patient to begin Pred and Poly qid OS and Diclofenac tid OS. Patient denies any pain or discomfort. 2 Week CE/IOL Symfony Toric PO T he 77 year old patient presents for evaluation of 2 Week CE/IOL Symfony Toric PO in the right eye. Pt states no pain or discomfort in OD, Pt states vision does not seem as good as they hoped. Pt states vision does seem brighter. Pt has all gtts and understands how to take all as instructed. Pt would like to proceed with OS surgery, Pt complains of not being able to read small print, not being able to thread a needle, and pt complains of lights at nights bothering them. Post-Op The 77 year old patient presents for a 1 day post op CE with Symfony Toric IOL OD. Patient to begin Pred and Poly qid OD and Ketorolac tid OD. Patient denies any pain or discomfort. Cataract evaluation The 77 year old patient presents for evaluation of Cataract evaluation in the right eye and left eye. Pt is Diet controlled NIDDM II and is unsure of A1c. Pt has a Sx of Lasik OU. Pt states OU VA blurry, like looking through a fog. Pt states it's difficult to drive at night due to headlight glare, having to get closer to street signs to see them clearly, difficult to see TV, and it's difficult to see small print. DVA and NVA gradual decrease x 1 yr. Complete Exam The 77 year old patient presents for a complete exam ou. Patient has hx of Lasik ou. Patient denies any changes in vision ou. Patient is diet controlled DM and check BS about 1 month ago and was 119. Patient sometimes wears OTC reading glasses. Complete exam The 76 year old patient presents for evaluation of Complete exam in the right eye and left eye. Hx Cataract OU, Lasik OU, Glaucoma Suspect OU, DM2. Last A1c unknown, BS 119 as of last week, followed by Dr. Kellogg. Pt reports stable vision without the use of glasses. Cataract Check The 74 year old male presents for evaluation of Cataract Check in the right eye and left eye. Hx Cataract OU, Lasik OU, Glaucoma Suspect OU. DM2, last A1c unknown, BS 102 as of 3 weeks ago, followed by Dr. Cheung. Pt reports trouble seeing at near such as newspapers, books and medicine bottles x many years OU. 6 mo cataract check The 74 year old male presents for evaluation of 6 mo cataract check in the right eye and left eye. Patient is a diet controlled diabetic. BS was 119 1 mo ago. Patient has hx of Lasik ou and cataracts ou. Pt denies any difficulty driving at night, seeing road signs, reading small print, recognizing people's faces from across the street or bothered with glare on bright days/oncoming headlights at night OU. Pt is not taking any gtts at this time. Complete Exam The 73 year old male presents for a complete exam ou. Patient is a diet controlled diabetic. BS was 119 a week ago. Patient has hx of Lasik ou and cataracts ou. Patient denies any changes in vision ou. Complete Exam The 72 year old male presents for evaluation of Complete Exam in the right eye and left eye. Hx of Cataracts OU, Lasik OU, and Glc susp OU. Pt is diet controlled NIDDM II and is unsure of A1c but states FBS was 29 yesterday AM. Pt states vision is clear and stable OU at distance and near x 6 mos. Pt using OTC readers for small print or in dimly lit areas. complete exam The 70 year old male presents for complete exam in the right eye and left. History of bilateral cataracts, Optic Disc cupping OU, Lasik OU, and Type II Diabetes. Blood sugar was 115 last week, unsure of last A1C. Patient states he needs good lighting to read maps but other than that he has no visual complaints. Pt wears OTC readers for near. Patient denies use of eye drops. Blurry vision The 68 year old male presents for Blurry vision. Px hx LASIK OU 2002, Cataracts OU, Borderline Glaucoma OU. Patient denies any changes in v/a OU. Patient denies any pain or discomfort at this time. Patient not taking any drops at this time. Functional Status Date Functional Assessmen t No Information Instructions Date Instruction Additional Infor zach Impression/Plan Impression/Plan Impression/Plan Impression/Plan Impression/Plan Impression/Plan Impression/Plan Impression/Plan Impression/Plan Impression/Plan Impression/Plan Impression/Plan Follow up - 1 yr complete exam Impression/Plan - Di abetes type II: no background retinopathy, no signs of neovascularization noted. Discussed ocular and systemic benefits of blood sugar control. Cataract presence discussed and symptoms of progression explained, not visually significant to patient. Pt was instructed to return to the office sooner if vision worsens. Pt needs BAT and BCVA on return prior to dilation. Letter generated and sent to Dr. Cheung Type 2 diabetes robinson itus without complications - Letter sent to PCP/Specialist Related to Type 2 diabetes mellitus without complications - 1 yr complete Related to See l ist of assessments above - Diabetes type II: no background retinopathy, no signs of neovascularization noted. Discussed ocular and systemic benefits of blood sugar control. Letter to PCP. Cataract progression discussed. Related to See list of assessments above - 1 yr complete exam Related to See impression: general plan General plan -SENILE NUCLEAR CATARACT -Diabetes Mellitus Type 2, Uncomplicated -Nodular degeneration of cornea - OU: Discussed diagnosis in detail with patient. No treatment is required at this time. Will continue to observe condition and or symptoms. Call if VA worsens. Emphasized blood sugar control. Educational materials provided:about today's exam. Letter dictated to Dr. Cheung Related to See impression: general plan Borderline Glaucoma, OU - asym CDR normal IOP established,stable- vision not affected-Will monitor - Stable. No treatment. Will continue to monitor. Diabetes Type II, No NPDR - No NPDR. Letter dictated to Dr. Pereira Related to Diabetes Type II Cataract, Nuclear Sc lerosis, OUlasik flaps stable-established,stable-will continue to monitor - No treatment currently recommended, patient will monitor vision changes and contact us with any decrease in vision. - 1 year complete Related to Roxy toledo Type II Cataract, Nuclear Sc lerosis, OUlasik flaps stable - Discussed cataract diagnosis with the patient. No treatment is required at this time. Will continue to observe condition and symptoms. Related to Cataract, Nuclear Sclerosis Diabetes Type II, - letter dictated to Dr. Pereira Related to Diabetes Type II - 1 yr complete Related to Diabe ranjit Type II Borderline Glaucoma, OU - asym CDR normal IOP established, stable - vision not affected - Glaucoma diagnosis and treatment options were discussed with patient. Related to Borderline Glaucoma Assessments Type Assessment Date assessment Prediabetes assessment Other secondary cataract, bilate ral assessment Presence of intraocular lens Feb assessment Vitreous degeneration, right eye Patient Care Teams Name Effective Dates (start - stop) Status Members No Information
--- OUTSIDE RECORDS SUMMARY | 2024-09-17 00:28 | XMS_ITS | Encounter Summary ---
Author Organization [facility] Address [address] [facility] [place] [address] Care Team Providers Care Purchasing Associate Name Role Phone Almas Stapleton MD Unavailable [phone] Alejandro Kellogg DO Primary Care Provider [phone] Encounter Details Date Type Department Care Team (Late st Contact Info) Description 08/16/2024 Lab Requisition [facility] - Pathology Lab [address] [place] [address] Preston Rowland MD [address] [address] Illness, unspecified Social History Tobacco [...] unspecified documented in this encounter Care Teams Purchasing Associate Relationship Specialty Start Date End Date Alejandro Kellogg DO [address] [place] [phone] PCP - General 02/23/22 Almas Stapleton MD Orthopedic Surgery 09/01/11 documented as of this encounter
--- OUTSIDE RECORDS SUMMARY | 2024-09-17 00:28 | XMS_ITS | Patient Health Summary ---
Author Organization [facility] Address [address] [facility] [place] [address] Care Team Providers Care Master Carpenter Name Role Phone Anne Stapleton MD Unavailable [phone] Alejandro Kellogg DO Primary Care Provider [phone] Note from [facility],non-owned Affiliates and Associated Physician Practices is amultiple site organization consisting of ambulatory clinics and hospital sitesin [place], [place], [place] and [place]. This disclosure is being madepursuant to the Care Everywhere program and may not contain all information available regarding this patient. Last updated 18.[facility] Allergies * Adhesive Sensitivity(Rash,) Medications * [...] Comments Blood Pressure 117/74 09/04/2012 6:06 AM ASBESTOS MICROSCOPIST Pulse 78 09/04/2012 6:06 AM ASBESTOS MICROSCOPIST Temperature 36.9 C (98.4 F) 09/04/2012 6:06 AM ASBESTOS MICROSCOPIST Respiratory Rate 18 09/04/2012 6:06 AM ASBESTOS MICROSCOPIST Oxygen Saturation 98% 09/04/2012 6:06 AM ASBESTOS MICROSCOPIST Inhaled Oxygen Concentration - - Weight 88.4 kg (194 lb 12.8 oz) 09/01/2012 7:04 AM ASBESTOS MICROSCOPIST Height 175.3 cm (5' 9 ) 09/01/2012 7:04 AM ASBESTOS MICROSCOPIST Body Mass Index 28.77 09/01/2012 7:04 AM ASBESTOS MICROSCOPIST Procedures * DERMATOPATHOLOGY(Performed 07/16/2014) * DERMATOPATHOLOGY(Performed 05/29/2014) [...] PATHOLOGY TISSUE FOR DERMATOLOGY (07/16/2014 12:00 AM ASBESTOS MICROSCOPIST) Only the most recent of10 resultswithin the time period is included. Result CASE: [id number] PATIENT: ANNE ELIAS PATHOLOGIC DIAGNOSIS: Left neck: [...] out by Earnestine Smith M.D. 07/17/2014 4:22:05PM [facility] DERMATOLOGY LAB Comment: Performed at: Dermatopathology Laboratory [facility] - Department of Dermatology [address] [place] [address] [place] [address] Phone number: [phone] FAX: [phone] 07/16/2014 07/17/2014 Mauricio Chapa LAB - PATHOLOGY/CYTO LOGY ORDERABLES [facility] DERMATOLOGY LAB [address] [place] [address]. [facility] [place] [address], [facility] [phone] * XR KNEE BILAT 3 VIEWS (10/12/2012 [...] - POINT OF CARE (09/04/2012 7:10 AM ASBESTOS MICROSCOPIST) Only the most recent of25 resultswithin the time period is included. Glucose WB/POC 137(H) 75 - 110 mg/dl [facility] BLOOD SPECIMEN / Unknown 09/04/2012 7:10 AM ASBESTOS MICROSCOPIST 09/04/2012 12:21 PM ASBESTOS MICROSCOPIST Anne Stapleton MD LAB - POINT OF CARE ORDERABLES Performing Organization Address [facility] de Phone Number [facility] [address] [place] [address] * (ABNORMAL) HGB HCT PANEL (09/03/2012 3:00 AM ASBESTOS MICROSCOPIST) Only the most recent of4 resultswithin the time period is included. Hemoglobin 11.3(L) 12.0 - 17.6 gm/dL [facility] Hematocrit 34.0(L) 35.2 - 51.7 % [facility] Blood specimen (specimen) BLOOD SPECIMEN / Unknown 09/03/2012 3:00 AM ASBESTOS MICROSCOPIST 09/03/2012 3:14 AM ASBESTOS MICROSCOPIST Anne Stapleton MD LAB - HEMATOLOGY ORD ERABLES Performing Organization Address [facility] de Phone Number [facility] [address] [place] [address] * CULTURE MSSA/MRSA (08/07/2012 11:55 AM ASBESTOS MICROSCOPIST) Only the most recent of2 resultswithin the time period is included. Result [facility] Comment: Final NO growth S.aureus/NO growth S.aureus (MRSA) Miscellaneous samples (specimen) SPECIMEN FROM NASAL FOSSAE / Unknown 08/07/2012 11:55 AM ASBESTOS MICROSCOPIST 08/07/2012 12:14 PM ASBESTOS MICROSCOPIST Narrative [facility] - 08/08/2012 7:21 PM ASBESTOS MICROSCOPIST Performed By [facility];[address];[place] [address] Anne Stapleton MD LAB - MICROBIOLOGY O RDERABLES [facility] [address] [place] [address] * CBC W AUTO DIFFERENTIAL (08/07/2012 11:55 AM ASBESTOS MICROSCOPIST) Only the most recent of2 resultswithin the time period is included. WBC 5.7 4.4 - 10.7 1000/mm3 [facility] RBC 4.97 3.80 - 5.40 10X6 [facility] Hemoglobin 14.1 12.0 - 17.6 gm/dL [facility] Hematocrit 41.5 35.2 - 51.7 % [facility] MCV 83.5 80.7 - 98.3 fl [facility] MCH 28.4 26.7 - 34.0 pg [facility] MCHC 34.0 30.8 - 35.9 gm/dL [facility] RDW 13.6 12.1 - 14.9 % [facility] Platelet Count 215 153 - 416 1000/mm3 [facility] MPV 9.7 9.4 - 12.9 fl [facility] Granulocytes % 55.8 44 - 73 % [facility] Immature Granulocytes % 0.2 0 - 1 % [facility] Lymphocytes % 34.6 20 - 43 % [facility] Monocytes % 7.1 5 - 13 % [facility] Eosinophils % 1.9 0 - 6 % [facility] Basophils % 0.4 0 - 2 % [facility] Granulocytes Absolute 3.17 2.01 - 7.14 [facility] Immature Granulocytes Absolute 0.01 0.00 - 0.06 [facility] Lymphocytes Absolute 1.96 1.07 - 3.94 [facility] Monocytes Absolute 0.40 0.26 - 1.07 [facility] Eosinophils Absolute 0.11 0.00 - 0.47 [facility] Basophils Absolute 0.02 0.00 - 0.08 [facility] Comment Manual Diff Not Indicated [facility] Blood specimen (specimen) BLOOD SPECIMEN / Unknown 08/07/2012 11:55 AM ASBESTOS MICROSCOPIST 08/07/2012 12:13 PM ASBESTOS MICROSCOPIST Anne Stapleton MD LAB - HEMATOLOGY ORD JACOB Performing Organization Address [facility] Co de Phone Number [facility] [address] [place] [address] * (ABNORMAL) COMPREHENSIVE METABOLIC PANEL (08/07/2012 11:55 AM ASBESTOS MICROSCOPIST) Only the most recent of2 resultswithin the time period is included. BUN 17 7.0 - 21.0 mg/dL [facility] Sodium 139 136 - 145 mmol/L [facility] Potassium 4.0 3.5 - 5.1 mmol/L [facility] Chloride 105 98.0 - 107.0 mmol/L [facility] Glucose 115(H) 74 - 106 mg/dL [facility] Creatinine 0.87 0.5 - 1.3 mg/dL [facility] AST 17 5 - 40 U/L [facility] Alkaline Phosphatase 58 38 - 126 U/L [facility] Calcium 9.2 8.5 - 10.1 mg/dL [facility] Bilirubin Total 0.5 0.2 - 1.0 mg/dL [facility] Albumin 4.2 3.4 - 5.0 gm/dL [facility] Protein Total 7.8 6.4 - 8.2 gm/dL [facility] CO2 29 22.0 - 30.0 mmol/L [facility] ALT 40 12 - 78 U/L [facility] eGFR by MDRD 87 mL/min/1.7 3m2 [facility] Anion Gap 5.0 5 - 15 mmol/L [facility] Blood specimen (specimen) BLOOD SPECIMEN / Unknown 08/07/2012 11:55 AM ASBESTOS MICROSCOPIST 08/07/2012 12:13 PM ASBESTOS MICROSCOPIST Anne Stapleton MD LAB - CHEMISTRY YAZAN RODNEY Performing Organization Address City/[facility]/ZIP Co de Phone Number [facility] [address] [place] [address] * EKG 12-LEAD (08/07/2012 11:50 AM ASBESTOS MICROSCOPIST) Ventricular Rate 67 BPM [facility] Atrial Rate 67 BPM [facility] P-R Interval 178 ms [facility] QRS Duration ms 88 ms [facility] Q-T Interval ms 364 ms [facility] QTC Calculation (Bezet) 384 ms [facility] Calculated P [place] 55 degrees [facility] Calculated R [place] 43 degrees [facility] Calculated T [place] 52 degrees [facility] Interpretation EKG Normal sinus rhythm Normal ECG When compared with ECG of 22-JUL-2011 11:05, No significant change was found Confirmed by MD PERCY, CLEOPATRA ([id number]) on 08/07/2012 4:16:03 PM [facility] 08/07/2012 11:5 0 AM ASBESTOS MICROSCOPIST 08/07/2012 4:16 PM ASBESTOS MICROSCOPIST Narrative [facility] - 08/07/2012 4:18 PM ASBESTOS MICROSCOPIST Procedure Note Document, Scanned - 08/07/2012 2:15 [...] CARDIAC RHYTHM STRIP ORDER (08/16/2011 2:47 PM ASBESTOS MICROSCOPIST) Narrative Transcriptions Document, Scanned - 08/16/2011 2:47 PM CST Scanned Document CARDIAC SERVICES ORD ERABLES * IP CONSULT TO HOME CARE (08/15/2011 12:16 PM ASBESTOS MICROSCOPIST) Narrative Kenya Turner LPN - 08/15/2011 12:16 PM ASBESTOS MICROSCOPIST Kenya Turner LPN 08/15/2011 12:16 PM Home care orders received. Per physician's request,[facility], , will follow upon discharge. All information faxed to [phone]. Thank you for this referral. Kenya Turner LPN, Prevention Rn, Procedure Note Kenya Turner LPN - 08/15/2011 11:28 AM CST Home care orders received. Per physician's request,[facility],[phone], will follow upon discharge. All information faxed [phone]. Thank you for this referral. Kenya Turner LPN, Prevention Rn, Anne Stapleton MD INPATIENT ANCILLARY CONSULT * IP CONSULT TO HOSPITALIST (08/12/2011 2:19 PM ASBESTOS MICROSCOPIST) Narrative Colby Bear MD - 08/12/2011 2:19 PM ASBESTOS MICROSCOPIST Colby Bear MD 08/12/2011 2:19 PM Seen and examined Full note to follow A/p djd knee-s/p TKR, pt/ot/dvt ppx DM-cont home meds with ssi Dyslipidemia-cont statin BPH with microscopic hematuria-treated with proscar and flomax, resume DVT ppx- lovenox-,monitor for hematuria Monitor for etoh withdrawal [id number] Procedure Note Colby Bear MD - 08/12/2011 2:11 PM CST Seen and examined Full note to follow A/p djd knee-s/p TKR, pt/ot/dvt ppx DM-cont home meds with ssi Dyslipidemia-cont statin 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
--- NOTE | 2024-09-17 10:06 | P.PNAN_ITS ---
Anes - Initial Pre Proc Eval Procedure: Operation Date: 09/17/24 12:00 Proposed Procedures p Insertion Maldonado Cath - Thalia Cordero MD Date/Time: 09/17/24 10:06 Surgeon: Thalia Cordero MD Pre Op Diagnosis: prostate cancer Patient Data Age: 78 Gender: M Height: 1.73 m Weight: 80 kg Allergies Allergy/AdvReac Type Severity Reaction Status Date / Time No Known Allergies Allergy Verified 08/31/24 13:32 Home Medications ?Medication ?Instructions ?Recorded ?Confirmed ?Type simvastatin 40 mg tablet 40 mg PO QHS 07/30/24 08/31/24 History ergocalciferol (vitamin D2) 1,250 1,250 mcg PO WEEKLY #12 caps 08/02/24 08/31/24 Rx mcg (50,000 unit) capsule prednisone 5 mg tablet 5 mg PO BID 08/31/24 08/31/24 History Patient hx anesthesia problems: none Family hx anesthesia problems: none Results Review: All pre-operative results and documents have been reviewed as part of the pre- operative evaluation. [facility] Past Medical History Medical History Anemia Prediabetes Family history of melanoma History of colonic polyps Post-COVID chronic cough (~01/2024) Basal cell carcinoma Prostate cancer (~2020) Other and unspecified hyperlipidemia Osteoarthritis of knee, unspecified Surgical History Surgical History History of tonsillectomy History of cataract extraction (~2023) b/l Social History Social History Smoking packs per day: 1 Smoking cigarettes per day: 20.0 Years smoked: 30 Smoking pack-years: 30.00 Smoking status: Former smoker Tobacco type: cigarettes Second hand tobacco smoke exposure: No Smoking end date: 07/11/99 Alcohol intake: current Drinks per week: 15 Alcohol use details: Liquor Substance use: never Substance use type: does not use Lack of Transportation: No Lack of Food: Never True Current Housing: I Have Housing Concerned About Future Housing: No Difficulty Paying Gas/Electric Bills: No Difficulty Paying for Meds: No Currently Unemployed: No Education: High School Diploma/GED Difficulty w/ Childcare or Family Care: No Living arrangements: with family Additional living arrangements comments: Occupation/Education: retired Gender identity (if verbalized by the patient): Male Sexual Orientation (if Verbalized by the Patient): Straight or Heterosexual Spiritual care concerns: No Agree to blood products: Yes Anes - Eval Final PreProcedure Day of Procedure 09/17/24 10:06 Patient weight: overweight Heart: regular rate and rhythm Lungs: clear to auscultation Airway: Mallampati scale class II Last oral intake: >/= 8 hours ASA classification: III Emergent: no Anesthetic plan: proceed Anesthesia type and monitoring: general GIVS and standard monitoring Results Review: All pre-operative results and documents have been reviewed as part of the pre- operative evaluation. Informed Consent: The patient's anesthetic plan and its attendant risks and benefits were discussed with the patient/family/POA. Questions were solicited and answers provided to the satisfaction of the patient/family/POA.
[2024-09-17] MEDS: LACTATED RINGERS 1,000 ML 30 ML IV CONT (10:20)
[2024-09-17] MEDS: KETOROLAC 15 MG/ML VIAL (*BKC) IV PUSH (10:35)
[2024-09-17 10:38] VITALS: BP 129/65; PULSE 78; RESP 18; TEMP 36.8; O2SAT 99
--- NOTE | 2024-09-17 10:40 | SUR.PREOP ---
DR. LY MADE AWARE PREOP PTT PENDING. PT/INR RESULTS 07/31/24 WERE 14.9/1.1 AND PT NOT ON ANTICOAGULANTS AND NO HX OF LIVER DISEASE OR BLEEDING DISORDERS. DR. LY OK TO PROCEED TO OR W/ PENDING RESULTS.
--- NOTE | 2024-09-17 10:41 | PM.IMHP ---
H&P: HPI History of Present Illness Date/Time: 09/17/24 10:41 Chief Complaint: Metastatic prostate cancer Narrative: The patient is an 78-year-old male presenting for port placement after diagnosis of metastatic prostate cancer. The patient is noted to have masses in the left lung and liver consistent with metastatic prostate cancer. The patient is going to undergo chemotherapy and we have been requested to place a port. Patient denies any previous central venous catheterization. Review of Systems Review of Systems: All systems reviewed & are unremarkable except as noted in HPI and below PMFSH Past Medical History Medical History Anemia Prediabetes Family history of melanoma History of colonic polyps Post-COVID chronic cough (~01/2024) Basal cell carcinoma Prostate cancer (~2020) Other and unspecified hyperlipidemia Osteoarthritis of knee, unspecified Surgical History Surgical History History of tonsillectomy History of cataract extraction (~2023) b/l Social History Social History Smoking packs per day: 1 Smoking cigarettes per day: 20.0 Years smoked: 30 Smoking pack-years: 30.00 Smoking status: Former smoker Tobacco type: cigarettes Second hand tobacco smoke exposure: No Smoking end date: 07/11/99 Alcohol intake: current Drinks per week: 15 Alcohol use details: Liquor Substance use: never Substance use type: does not use Lack of Transportation: No Lack of Food: Never True Current Housing: I Have Housing Concerned About Future Housing: No Difficulty Paying Gas/Electric Bills: No Difficulty Paying for Meds: No Currently Unemployed: No Education: High School Diploma/GED Difficulty w/ Childcare or Family Care: No Living arrangements: with family Additional living arrangements comments: Occupation/Education: retired Gender identity (if verbalized by the patient): Male Sexual Orientation (if Verbalized by the Patient): Straight or Heterosexual Spiritual care concerns: No Agree to blood products: Yes Meds Home Medications and Allergies Home Medications ?Medication ?Instructions ?Recorded ?Confirmed ?Type simvastatin 40 mg tablet 40 mg PO QHS 07/30/24 09/17/24 History ergocalciferol (vitamin D2) 1,250 1,250 mcg PO WEEKLY #12 caps 08/02/24 08/31/24 Rx mcg (50,000 unit) capsule prednisone 5 mg tablet 5 mg PO BID 08/31/24 08/31/24 History Allergies Allergy/AdvReac Type Severity Reaction Status Date / Time No Known Allergies Allergy Verified 08/31/24 13:32 Vital Signs Vital Signs - 24 hr 09/17/24 10:38 Temperature 36.8 C Pulse Rate 78 Respiratory Rate 18 Blood Pressure 129/65 Pulse Oximetry 99 Oxygen Delivery Room Air Exam Const: General: cooperative, comfortable and no acute distress HENMT: Head: normal to inspection, normocephalic and atraumatic Neck: Neck: normal visual inspection, full ROM and no lymphadenopathy Chest: Chest palpation & inspection: normal inspection of the chest Resp: Effort & Inspection: normal respiratory effort Auscultation: clear to auscultation bilaterally Cardio: Rate: regular rate Rhythm: regular rhythm GI: Inspection: normal to inspection Assessment and Plan Assessment and plan (1) 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
--- NOTE | 2024-09-17 10:43 | WPDHPUPDATE1 ---
History and Physical Update Update Date/Time: 09/17/24 10:43 History and Physical has been reviewed, including an updated exam of the patient. There are NO changes in the patient's condition. Risks, benefits, and alternatives have been discussed and questions answered. Patient agrees to proceed with procedure.
[2024-09-17 10:44] LABS: Partial Thromboplastin Time 30.2 Seconds (22.3-36.8)
[2024-09-17] MEDS: ceFAZolin 2 GM/D5W 50 ML 2 GM/50 ML BAG IVPB (10:47)
[2024-09-17] MEDS: BUPIVACAINE/EPINEPHRINE 0.5% 50 ML VIAL 30 ML INFILTRATE (11:12)
[2024-09-17] MEDS: HEPARIN SODIUM, PORCINE 10,000 UNITS/10 ML VIAL 2000 UNITS IRRIGATION (11:13)
[2024-09-17] MEDS: HEPARIN SODIUM 5,000 UNITS/ML VIAL 5000 UNITS IRRIGATION (11:15)
[2024-09-17 11:31] VITALS: BP 99/58; PULSE 73; RESP 14; O2SAT 98
--- NOTE | 2024-09-17 11:35 | W.PM.PROC2 ---
Procedure Note - Detailed Date of Procedure 09/17/24 Pre-op Diagnosis metastatic prostate cancer Post-op Diagnosis Same Procedure Performed placement of right internal jugular venous access device under both ultrasound and fluroscopic guidance Surgeon Thalia Cordero MD Anesthesia MAC and Local Indications 78-year-old male with metastatic prostate cancer needing access for chemotherapy Findings 1st stick right IJ under ultrasound guidance Description of Procedure Patient was brought into the operating room and placed in the supine position. After adequate induction of mac anesthesia, the patient was prepped and draped in normal sterile fashion. Time-out was then done to verify the patient's identity, as well as the procedure being performed. I used the ultrasound to gain access into the right internal jugular vein. Once access was gained, I placed the guidewire in the vein and confirmed proper positioning using fluoroscopy. I then locally anesthetized an area in the right chest. I then made an incision including making a subcutaneous pocket inferiorly to allow placement of the port itself. I proceeded to tunnel the catheter from the chest to the right neck insertion site. I then placed a dilating sheath over the guidewire into the right internal jugular vein via sterile Seldinger technique. This was once again done and confirmed via fluoroscopic guidance. I then removed the dilator and the guidewire, now just leaving the sheath in the vein. I then fed the previously flushed catheter into the right internal jugular vein under fluoroscopic guidance. At approximately 25 cm, the catheter was noted to be near the atrial caval junction. I then peeled away the sheath, now just leaving the catheter in the vein. I then was able to easily draw and flush from the catheter. The catheter was cut to fit and attached to the port itself. The port was placed into the previously made subcutaneous pocket and sutured in with 0 Ethibond suture. Final fluoroscopic view showed the termination of the catheter at the atrial caval junction with a nice smooth curvature back to the port itself. I was able to gain access to the port with a Pérez needle and was able to easily draw and flush from the port. I then flushed 4 cc of a final heparin flush into the port. The incision was closed with 3 0 Vicryl suture in the subcutaneous tissue and the skin was closed with 4 O Monocryl subcuticular suture. Dermabond was then placed on wound. The patient tolerated the procedure well and will be sent to the recovery room in stable condition. Implants RIJ VAD Estimated Blood Loss 5 Pathology None sent Complications No immediate complications Condition Stable Disposition PACU [facility] Billing Surgery - Charge Forward: Surgery Billing
[2024-09-17 12:00] VITALS: BP 109/61; PULSE 70; RESP 20
[2024-09-17 12:30] VITALS: BP 96/54; PULSE 68
[2024-09-17 13:00] VITALS: BP 96/68; PULSE 66
== END 2024-09-17 13:20 | disposition home or self-care (01) ==
PROVIDERS: PCP Family Medicine; Visit Provider Surgery
PROC: (CPT 36561; principal; 2024-09-17 12:00)
DX: C61 Malignant neoplasm of prostate (principal); C78.7 Secondary malignant neoplasm of liver and intrahepatic bile duct; J90 Pleural effusion, not elsewhere classified; D64.9 Anemia, unspecified; R73.03 Prediabetes; E78.5 Hyperlipidemia, unspecified; M17.10 Unilateral primary osteoarthritis, unspecified knee; Z79.52 Long term (current) use of systemic steroids; Z98.890 Other specified postprocedural states; Z86.0100 Personal history of colon polyps, unspecified; Z87.891 Personal history of nicotine dependence; Z85.828 Personal history of other malignant neoplasm of skin; Z80.8 Family history of malignant neoplasm of other organs or systems
CPT/HCPCS: 36561; 36415; 77001; 85730; C1788; J0690; J1644; J1885; J2003; J2405; J2704; J3010; J7030; J7120

== ENCOUNTER 2024-10-23 10:53 | Outpatient (CLI) | payer OTHER, SELFPAY ==
--- NOTE | ~2024-10-23 | CT_ITS ---
History: Left lower extremity weakness with a history of metastatic prostate cancer. PROCEDURE: CT head without contrast. COMPARISON: Reference is made to a PET/CT dated 08/15/2024, which included the skull base only. TECHNIQUE: Axial imaging of the head performed from the skull base to the vertex without IV contrast. Sagittal a nd coronal reformations obtained. DLP: 605 mGy-cm FINDINGS: Within the right frontal lobe is a well-circumscribed focus of fluid attenuation measuring 3.9 x 3.7 x 4.0 cm (anterior to posterior x medial to lateral x cranial to caudal dimension). This focus demons trates mass effect on the right lateral ventricle with significant surrounding vasogenic edema. A sma ll focus of intracranial hemorrhage is present measuring 6 x 6 x 6 6 mm, along the medial margin of t his collection. Suggestion of subfalcine herniation is identified on coronal view. Visualized paranasal sinuses are clear. The mastoid air cells are well aerated. No acute displaced fractures within the overlying cranium. Impression: Intracranial focus of fluid attenuation with surrounding vasogenic edema and a subcentimeter focus of intracranial hemorrhage. Possible early subfalcine herniation is suspected secondary to the mass eff ect. These findings were discussed with Dr. Brown at 11:40 AM. Emergent MRI is planned. Reviewed, dictated and finalized at location A. Impression: Intracranial focus of fluid attenuation with surrounding vasogenic edema and a subcentimeter focus of intracranial hemorrhage. Possible early subfalcine herni ation is suspected secondary to the mass effect. These findings were discussed with Dr. Brown at 11:40 AM. Emergent MRI is plan chantell.
--- NOTE | ~2024-10-23 | MR_ITS ---
EXAMINATION: MR brain/brain stem wo/w con DATE: 10/23/2024 17:00 INDICATION: Cerebrovascular accident TECHNIQUE: Magnetic resonance imaging (MRI) of the brain and brainstem was performed without and with 15 mL ProHance intravenous contrast. Sequences included sagittal and axial T1-weighted SE, axial dif fusion-weighted FS SE, axial 3D SWAN, axial T2-weighted FLAIR, and axial T2-weighted FSE. Postcontras t axial and coronal T1-weighted SE was obtained. Apparent diffusion coefficient (ADC) maps were creat ed. COMPARISON: Head CT date FINDINGS: There are no areas of restricted diffusion to suggest acute infarction. There is prominent vasogenic edema in the right frontal lobe surrounding a 4.1 x 3.5 x 4.1 cm cystic lesion without central restr icted diffusion to suggest abscess and with relatively uniform thin peripheral rim of enhancement. Th e vasogenic edema extends posteriorly into the anterior right parietal lobe which surrounds a second smaller 6 mm peripheral enhancing lesion. There are a few foci of susceptibility artifact at the mario phery of the larger cystic lesion consistent with old blood products related to prior hemorrhage. The re is an additional prominent region of susceptibility artifact centered at the scalp slightly to the left of midline near the vertex which is without evident correlate on the CT imaging which is of ind eterminate etiology or significance. The large cystic lesion in the right frontal lobe and surroundin g vasogenic edema resulting in local mass effect upon the surrounding sulci as well as the body of th e right lateral ventricle. There is also subfalcine herniation with 6 mm right to left midline shift. The ventricles are otherwise normal in size. There are no abnormal extra-axial fluid collections. Fl ow voids are seen in the cerebral arteries on the T2-weighted sequences consistent with their expecte d patency. Left vertebral artery is dominant. Changes of bilateral intraocular lens replacement. IMPRESSION: 1. Prominent vasogenic edema surrounding a 4.1 cm cystic lesion with relatively uniform smooth periph eral rim of enhancement the right frontal lobe and a smaller 6 mm peripherally enhancing lesion in th e anterior right parietal lobe. There is no restricted diffusion to suggest abscess and the multiplic ity raises concern for metastatic disease this patient with previously demonstrated metastatic lung c ancer. 2. Significant local mass including subfalcine herniation was 6 mm right to left midline shift. Reviewed, dictated and finalized at location A. IMPRESSION: 1. Prominent vasogenic edema surrounding a 4.1 cm cystic lesion with relatively uniform smooth peripheral rim of enhancement the right frontal lobe and a smal ler 6 mm peripherally enhancing lesion in the anterior right parietal lobe. The re is no restricted diffusion to suggest abscess and the multiplicity raises co ncern for metastatic disease this patient with previously demonstrated metastat ic lung cancer. 2. Significant local mass including subfalcine herniation was 6 mm right to lef t midline shift.
--- OUTSIDE RECORDS SUMMARY | 2024-10-23 12:16 | XMS_ITS | Clinical Summary ---
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 Care Teams Director [employer] Relationship Specialty Start Date End Date Almas Calvin MD [address] [place] [address] PCP - General Internal Medicine 09/12/18
--- OUTSIDE RECORDS SUMMARY | 2024-10-23 12:16 | XMS_ITS | Clinical Summary ---
Author Organization [facility] Address [address] [place] [address] Care Team Providers Care Lang Interpreter Name Role Phone Almas Stapleton MD Unavailable [phone] Alejandro Kellogg DO Primary Care Provider [phone] Source Comments [facility],non-owned Affiliates and Associated Physician Practices is amultiple site organization consisting of ambulatory clinics and hospital sitesin [place], [place], [place] and [place]. This disclosure is being madepursuant to the Care Everywhere program and may not contain all information available regarding this patient. Last updated 18.[facility] Allergies Active Allergy Reactions Criticality Noted Date Comments Adhesive Sensitivity 07/22/2011 Rash, Medications * Be aware that medications may not be up to date on this document. Alwaysverify current medications with the patient. metFORMIN (GLUCOPHAGE) 500 MG tablet Take 500 [...] times daily. 60 Cap 0 08/24/2012 Active hydrocodone-lynda taminophen (NORCO) 5-325 MG tablet Take 1-2 Tabs by mouth every 6 hours as needed for Pain. MUST LAST 3 WEEKS 50 Tab 0 10/16/2012 Active Active Problems Problem Noted Date Diagnosed Date Osteoarthrosis involving lower leg 06/21/2012 Overview (10/04/2015): 2015 IMO Updt Knee joint replacement by other means 11/05/2011 Encounters Date Type Department Care Team Description 08/16/2024 Lab Requisition [facility] - Pathology Lab [address] [place] [phone] Preston Rowland MD Illness, unspecified 08/13/2024 Lab Requisition [facility] - Pathology Lab [address] [place] [address] Preston Rowland MD Illness, unspecified from Last 3 Months Immunizations Immunization Administration Dates Next Due INFLUENZA VACCINE 07/22/2011 [...] at Not on file Legal Sex Male 12:44 PM SENIOR TECHNICAL BUSINESS ANALYST Gender Identity Not on file Sexual Orientation Not on file Last Filed Vital Signs Vital Sign Reading Time Taken Comments Blood Pressure 117/74 09/04/2012 6:06 AM SENIOR TECHNICAL BUSINESS ANALYST Pulse 78 09/04/2012 6:06 AM SENIOR TECHNICAL BUSINESS ANALYST Temperature 36.9 C (98.4 F) 09/04/2012 6:06 AM SENIOR TECHNICAL BUSINESS ANALYST Respiratory Rate 18 09/04/2012 6:06 AM SENIOR TECHNICAL BUSINESS ANALYST Oxygen Saturation 98% 09/04/2012 6:06 AM SENIOR TECHNICAL BUSINESS ANALYST Inhaled Oxygen Concentration - - Weight 88.4 kg (194 lb 12.8 oz) 09/01/2012 7:04 AM SENIOR TECHNICAL BUSINESS ANALYST Height 175.3 cm (5' 9 ) 09/01/2012 7:04 AM SENIOR TECHNICAL BUSINESS ANALYST Body Mass Index 28.77 09/01/2012 7:04 AM SENIOR TECHNICAL BUSINESS ANALYST Plan of Treatment Health Maintenance Due Date Last Done Comments MEDICARE AWV 12 MONTHS 1945 DTAP/TDAP/TD VACCINES (1 - Tdap) 11/19/1962 ZOSTER VACCINE (1 of 2) 11/19/1993 PNEUMOCOCCAL VACCINE 50+ (2 of 2 - PCV) 09/04/2013 09/04/2012 Respiratory Syncytial Virus (RSV) Vaccine Pt: or over 60 yrs (1 - 1-dose 75+ series) 11/19/2018 COVID-19 VACCINE ( - 2023-2 5 season) 2024 DEPRESSION SCREENING 07/11/2024 INFLUENZA VACCINE (Season Ended) 2025 07/22/19 12 HEPATITIS B VACCINE Aged Out No longe r eligible based on patient's age to complete this topic HIB VACCINE Aged Out No longer eligi ble based on patient's age to complete this topic HPV VACCINE Aged Out No longer eligi ble based on patient's age to complete this topic MENINGOCOCCAL (Group B) VACC INE SHARED DECISION-MAKING Aged Out No longer eligibl e based on patient's age to complete this topic MENINGOCOCCAL GROUPS A/C/Y/W VACCINE Aged Out No longer eligible b ased on patient's age to complete this topic [place] [address] [facility] MEDICARE [place] MEDICARE [place] MEDICARE E[place]ENCE MEDICARE Advance Directives Documents on File Type Date Recorded Patient Trim Machine Adjuster Expl anation Adv Directive/Living Will/POA 08/16/2011 11:00 AM * FULL RESUSCITATION (Latest Code Status on File) Date Activated Date Inactivated Comments 09/01/2012 11:08 AM 09/04/2012 12:46 PM * FULL RESUSCITATION Date Activated Date Inactivated Comments 08/12/2011 1:57 PM 08/15/2011 11:27 PM Care Teams Lang Interpreter Relationship Specialty Start Date End Date Alejandro Kellogg DO [facility] [place] [phone] PCP - General 02/23/22 Almas Stapleton MD Orthopedic Surgery 09/01/11
--- OUTSIDE RECORDS SUMMARY | 2024-10-23 12:16 | XMS_ITS | Encounter Summary ---
Author Organization [facility] Address [address] [facility] [place] [address] Care Team Providers Care Forging Press Operator Name Role Phone Almas Stapleton MD Unavailable [phone] Alejandro Kellogg DO Primary Care Provider [phone] Encounter Details Date Type Department Care Team (Late st Contact Info) Description 08/13/2024 Lab Requisition [facility] - Pathology Lab [address] [place] [address] Preston Rowland MD [address] [address] Illness, unspecified Social History Tobacco Use Types Packs/Day Years Used Date Smoking Tobacco: Former Cigarettes 1 25 0 07/11/1971 - 07/11/1996 Smokeless Tobacco: Never Alcohol Use Standard Drinks/Week Comments Yes 22.5 (1 standard drink = 0.6 oz pure alcohol) 2 drinks/day Sex and Gender Information Value Date Recorded Sex Assigned at Not on file Legal Sex Male 12:44 PM SHIFT PRODUCTION ASSOCIATE Gender Identity Not on file Sexual Orientation Not on file documented as of this encounter Plan of Treatment Pending Results Name Type Priority Associated Diagnoses Date /Time SLIDE PREP HISTOLOGY Pathology Cytology Routine Illness, unspecified 08/10/2024 documented as of this encounter Visit Diagnoses Diagnosis Illness, unspecified documented in this encounter Care Teams Forging Press Operator Relationship Specialty Start Date End Date Alejandro Kellogg DO [facility] [place] [phone] PCP - General 02/23/22 Almas Stapleton MD Orthopedic Surgery 09/01/11 documented as of this encounter
--- OUTSIDE RECORDS SUMMARY | 2024-10-23 12:16 | XMS_ITS | Encounter Summary ---
Author Organization [facility] [employer] [facility] Address [address] [place] [address] Care Team Providers Care Seismology Teacher Name Role Phone Chaka Colin MD Primary Care Provider Encounter Details Date Type Department Care Team ([facility] Contact Info) Description 10/17/2024 Orders Only [facility] Oncology and Hematology [facility] [address] [place] [address] Agustin Brown MD [address] [facility] [address] [place] [address] Social History Tobacco Use Types Packs/Day Years Used Date Smoking Tobacco: Never Smokeless Tobacco: Never Alcohol Use Standard Drinks/Week Comments Yes 0 (1 standard drink = 0.6 oz pur e alcohol) Occasionally Sex and Gender Information Value Date Recorded Sex Assigned at Not on file Legal Sex Male 4:26 PM JAVA SYBASE DEVELOPER Gender Identity Not on file Sexual Orientation Not on file documented as of this encounter Plan of Treatment Upcoming Encounters Date Type Department Care Team (Late Contact Info) Description 11/06/2024 8:30 AM CDT Office Visit [facility] Oncology and Hematology [facility] [address] [place] [address] Yolanda Snow MD [address] [place] [address] documented as of this encounter Procedures Procedure Name Priority Date/Time Associated Diagnosis Comments COMPREHENSIVE METABOLIC PANEL Routine 10/16/2024 8:15 AM CDT documented in this encounter Results * COMPREHENSIVE METABOLIC PANEL (10/16/2024 8:15 AM CDT) Blood Agustin Brown MD CHEMISTRY ORDERABLES Final Resu lt documented in this encounter Visit Diagnoses Not on filedocumented in this encounter Care Teams Seismology Teacher Relationship Specialty Start Date End Date Chaka Colin MD [facility] [facility] [place] [address] PCP - General Family Practice 08/09/24 documented as of this encounter
--- OUTSIDE RECORDS SUMMARY | 2024-10-23 12:16 | XMS_ITS | Referral Summary ---
Author Organization [facility] Address [address] [place] [address] Care Team Providers Care Outside Production Inspector Name Role Phone Almas Calvin MD Primary Care Provider [phone] Allergies Active Allergy Reactions Criticality Noted Date [...] on file Legal Sex Male 11:28 AM NUB CARD TENDER Gender Identity Not on file Sexual Orientation Not on file Plan of Treatment Not on file Insurance Robert PONCE CONNIE Pelletier [id number] [facility] Care Teams Outside Production Inspector Relationship Specialty Start Date End Date Almas Calvin MD [address] [place] [address] PCP - General Internal Medicine 09/12/18
--- OUTSIDE RECORDS SUMMARY | 2024-10-23 12:17 | XMS_ITS | Encounter Summary ---
Author Organization [facility] Address [address] [facility] [place] [address] Care Team Providers Care Sea Kayaking Guide Name Role Phone Almas Stapleton MD Unavailable [phone] Alejandro Kellogg DO Primary Care Provider [phone] Encounter Details Date Type Department Care Team (Late st Contact Info) Description 08/16/2024 Lab Requisition [facility] - Pathology Lab [address] [place] [address] Preston Rowland MD [address] [address] Illness, unspecified Social History Tobacco Use Types Packs/Day Years Used Date Smoking Tobacco: Former Cigarettes 1 25 0 07/11/1971 - 07/11/1996 Smokeless Tobacco: Never Alcohol Use Standard Drinks/Week Comments Yes 22.5 (1 standard drink = 0.6 oz pure alcohol) 2 drinks/day Sex and Gender Information Value Date Recorded Sex Assigned at Not on file Legal Sex Male 12:44 PM MECHANICAL ENGINEERING INTERN Gender Identity Not on file Sexual Orientation Not on file documented as of this encounter Plan of Treatment Pending Results Name Type Priority Associated Diagnoses Date /Time SLIDE PREP HISTOLOGY Pathology Cytology Routine Illness, unspecified 08/10/2024 documented as of this encounter Visit Diagnoses Diagnosis Illness, unspecified documented in this encounter Care Teams Sea Kayaking Guide Relationship Specialty Start Date End Date Alejandro Kellogg DO [facility] [place] [address] PCP - General 02/23/22 Almas Stapleton MD Orthopedic Surgery 09/01/11 documented as of this encounter
--- OUTSIDE RECORDS SUMMARY | 2024-10-23 12:17 | XMS_ITS | Encounter Summary ---
Author Organization [facility] [employer] [facility] Address [address] [place] [address] Care Team Providers Care Senior Software Engineering Manager Name Role Phone Chaka Colin MD Primary Care Provider Reason for Referral * CT Scan (Urgent) - Open Specialty Diagnoses / Procedures Referred By Contac t Referred To Contact Diagnoses Cerebrovascular accident (CVA), unspecified mechanism (CMS/HCC) Procedures CT HEAD WO CONTRAST Agustin Brown MD [address] [place] [address] Phone: tel: fax: [place] [phone] Referral ID Status Reason Start Date Expiration Date V isits Requested Visits Authorized [id number] Open STL CTS 10/23/2024 11/23/2025 1 1 Encounter Details Date Type Department Care Team (Late st Contact Info) Description 10/22/2024 Orders Only [facility] Oncology and Hematology [place] [address] [address] [place] [address] Agustin Brown MD [address] [place] [address] Cerebrovascular accident (CVA), unspecified mechanism (CMS/HCC) (Primary Dx); Prostate cancer (CMS/HCC) Social History Tobacco Use Types Packs/Day Years Used Date Smoking Tobacco: Never Smokeless Tobacco: Never Alcohol Use Standard Drinks/Week Comments Yes 0 (1 standard drink = 0.6 oz pur e alcohol) Occasionally Sex and Gender Information Value Date Recorded Sex Assigned at Not on file Legal Sex Male 4:26 PM INPUT OUTPUT CLERK Gender Identity Not on file Sexual Orientation Not on file documented as of this encounter Plan of Treatment Upcoming Encounters Date Type Department Care Team (Late st Contact Info) Description 11/06/2024 8:30 AM CDT Office Visit [facility] Oncology and Hematology [facility] [address] [place] [address] Yolanda Snow MD [address] [place] [address] Scheduled Orders Name Type Priority Associated Diagnoses Orde r Schedule CT HEAD WO CONTRAST Imaging Stat Cerebrovascular accident (CVA), unspecified mechanism (CMS/HCC) Expected: 10/23/2024, Expires: 10/23/2025 documented as of this encounter Visit Diagnoses Diagnosis Cerebrovascular accident (CVA), unspecified mechanism (CMS/HCC)- Primary Prostate cancer (CMS/HCC) Malignant neoplasm of prostate documented in this encounter Care Teams Senior Software Engineering Manager Relationship Specialty Start Date End Date Chaka Colin MD [address] [facility] [place] [address] PCP - General Family Practice 08/09/24 documented as of this encounter
--- OUTSIDE RECORDS SUMMARY | 2024-10-23 12:17 | XMS_ITS | Encounter Summary ---
Author Organization [facility] [employer] [facility] Address [address] [place] [address] Care Team Providers Care Fine Arts Teacher Name Role Phone Chaka Colin MD Primary Care Provider Reason for Referral * MRI (Urgent) - Open Specialty Diagnoses / Procedures Referred By Contac t Referred To Contact Diagnoses Cerebrovascular accident (CVA), unspecified mechanism (CMS/HCC) Procedures MRI BRAIN W WO CONTRAST Agustin Brown MD [email or web address] [place] [address] Phone: tel: fax: [place] [phone] Referral ID Status Reason Start Date Expiration Date V isits Requested Visits Authorized [id number] Open STL CTS 10/23/2024 11/23/2025 1 1 Encounter Details Date Type Department Care Team (Late st Contact Info) Description 10/23/2024 Orders Only [facility] Oncology and Hematology [place] [address] [address] [facility] [address] [place] [address] Agustin Brown MD [email or web address] [place] [address] Cerebrovascular accident (CVA), unspecified mechanism (CMS/HCC) (Primary Dx) Social History Tobacco Use Types Packs/Day Years Used Date Smoking Tobacco: Never Smokeless Tobacco: Never Alcohol Use Standard Drinks/Week Comments Yes 0 (1 standard drink = 0.6 oz pur e alcohol) Occasionally Sex and Gender Information Value Date Recorded Sex Assigned at Not on file Legal Sex Male 4:26 PM MECHANICAL ENGINEERING COOP Gender Identity Not on file Sexual Orientation Not on file documented as of this encounter Plan of Treatment Upcoming Encounters Date Type Department Care Team (Late st Contact Info) Description 11/06/2024 8:30 AM CDT Office Visit [facility] Oncology and Hematology - [place] [address] [place] [address] Yolanda Snow MD [address] [place] [address] Scheduled Orders Name Type Priority Associated Diagnoses Orde r Schedule MRI BRAIN W WO CONTRAST Imaging Stat Cerebrovascular accident (CVA), unspecified mechanism (CMS/HCC) Expected: 10/23/2024, Expires: 10/23/2025 documented as of this encounter Visit Diagnoses Diagnosis Cerebrovascular accident (CVA), unspecified mechanism (CMS/HCC)- Primary documented in this encounter Care Teams Fine Arts Teacher Relationship Specialty Start Date End Date Chaka Colin MD [address] [facility] [place] [address] PCP - General Family Practice 08/09/24 documented as of this encounter
--- OUTSIDE RECORDS SUMMARY | 2024-10-23 12:17 | XMS_ITS | Clinical Summary ---
[facility] Address [address] [place] [address] Care Team Providers Care Expense Analyst Name Role Phone Chaka Colin MD Primary Care Provider Allergies No known active allergies Medications sildenafil citrate (SILDENAFIL, PULM.HYPERTENSI ON, ORAL) Take by mouth daily. Active predniSONE (DELTASONE) 5 mg tablet Take 1 Tablet (5 mg) by mouth 2 times daily with meals. 60 Tablet 4 5 Active ondansetron (ZOFRAN ODT) 8 mg Tablet, Rapid Dissolve Dissolve 1 tablet on top of tongue then swallow with saliva every 8 hours as needed for nausea or vomiting 30 Tablet 1 5 Active dexAMETHasone (DECADRON) 4 mg tablet Take 2 tablets by mouth BID day before, day of, day after treatment with Docetaxel. 12 Tablet 5 5 Active lidocaine-prilo adrienne (EMLA) 2.5-2.5 % Cream Apply a quarter amount to port site 30 minutes before access. 30 Gram 1 5 Active abiraterone (ZYTIGA) 250 mg tablet Take 2 Tablets (500 mg) by mouth daily before breakfast. 60 Tablet 4 5 Active sertraline (Zoloft) 50 mg tablet Take 1 Tablet (50 mg) by mouth daily. 60 Tablet 2 5 Active abiraterone (ZYTIGA) 250 mg tablet Take 4 Tablets (1,000 mg) by mouth daily before breakfast. 120 Tablet 4 09/26/2024 10:01 AM CDT 5 10/16/19 25 Discontinu ed(Reorder ) Active Problems No known active problems Encounters Date Type Department Care Team Description 10/23/2024 Orders Only [facility] Oncology and Hematology - [place] [address] [place] [address] Agustin Brown MD Cerebrovascular accident (CVA), unspecified mechanism (CMS/HCC) (Primary Dx) 10/22/2024 Orders Only [facility] Oncology and Hematology - [place] [address] [place] [address] Agustin Brown MD Cerebrovascular accident (CVA), unspecified mechanism (CMS/HCC) (Primary Dx); Prostate cancer (CMS/HCC) 10/17/2024 Orders Only [facility] Oncology and Hematology - [place] [address] [place] [address] Agustin Brown MD 10/16/2024 9:45 AM CDT Office Visit [facility]ology - [place] [address] Agustin Brown MD Prostate cancer (CMS/HCC) (Primary Dx) 10/16/2024 Orders Only [facility] On[facility] and Hematology - [place] [address] Agustin Brown MD 10/15/2024 Refill [facility] - [place] [address] Agustin Brown MD 10/15/2024 Orders Only [facility]ology - [place] [address] Agustin Brown MD Prostate cancer (CMS/HCC) 10/09/2024 9:30 AM CDT Office Visit [facility] Oncology [facility]ematology - [place] [address] [place] [phone] Agustin Brown MD Prostate cancer (CMS/HCC) (Primary Dx) 10/09/2024 Orders Only [facility] Oncology [facility] Hematology - [place] [address] [place] [address] Agustin Brown MD Prostate cancer ([facility]/HCC) (Primary Dx) 10/09/2024 Telephone [facility]ology - [place] [address] [place] [address] Agustin Brown MD Fatigue 10/01/2024 Orders Only [facility]ology - [place] [address] [place] [address] Agustin Brown MD Prostate cancer ([facility]/HCC) 09/27/2024 Orders Only [facility]ology - [place] [address] [place] [address] Agustin Brown MD 09/26/2024 External Device Data STL ABSTRACTION Provider, Abstract 09/25/2024 Specialty Pharmacy [facility] [address] [place] [phone] Lina Quintanilla, PHARMACIST Specialty Pharmacy Clinical Assessment 09/25/2024 Specialty Pharmacy [facility] [address] [place] [phone] Michelle Ruiz, PHARMACIST Specialty Pharmacy Refill Coordination 09/20/2024 Abstract [facility]ematology - [place] [address] [place] [phone] Agustin Brown MD 09/19/2024 Refill [facility] - [place] [address] [place] [address] Agustin Brown MD 09/18/2024 Orders Only [facility] - [place] [address] [place] [address] Agustin Brown MD Prostate cancer ([facility]/HCC) (Primary Dx) 09/18/2024 Refill [facility] - [place] [address] [place] [address] Agustin Brown MD 09/18/2024 Refill [facility] - [place] [address] [place] [address] Agustin Brown MD 09/15/2024 External Device Data STL ABSTRACTION Provider, Abstract 09/14/2024 External Device Data STL ABSTRACTION Provider, Abstract 08/28/2024 External Device Data STL ABSTRACTION Provider, Abstract 08/17/2024 9:00 AM POST CLOSING SPECIALIST Office Visit [facility] Oncology and Hematology [facility] [address] [place] [address] Agustin Brown MD Prostate cancer (CMS/HCC) (Primary Dx) 08/17/2024 Specialty Pharmacy [facility] [address] [place] [address] [place] [address] Abbie Garcia, PHARMACIST 08/17/2024 Orders Only [facility] Oncology and Hematology [facility] [address] [place] [address] Agustin Brown MD 08/14/2024 External Device Data STL ABSTRACTION Provider, Abstract 08/14/2024 External Device Data STL ABSTRACTION Provider, Abstract 08/14/2024 External Device Data STL ABSTRACTION Provider, Abstract 08/08/2024 11:30 AM POST CLOSING SPECIALIST Office Visit [facility] Oncology and Hematology [facility] [address] [place] [address] Agustin Brown MD Liver mass (Primary Dx); [...] on file Legal Sex Male 4:26 PM POST CLOSING SPECIALIST Gender Identity Not on file Sexual Orientation Not on file Last Filed Vital Signs Vital Sign Reading Time Taken Comments Blood Pressure 108/57 10/16/2024 9:27 AM CDT Pulse 78 10/16/2024 9:27 AM CDT Temperature 36.1 C (97 F) 10/16/2024 9:27 AM CDT Respiratory Rate 15 10/16/2024 9:27 AM CDT Oxygen Saturation 93% 10/16/2024 9:27 AM CDT Inhaled Oxygen Concentration - - Weight 77.1 kg (170 lb) 10/16/2024 9:27 AM CDT Height 175.3 cm (5' 9 ) 08/08/2024 11:37 AM POST CLOSING SPECIALIST Body Mass Index 25.1 08/08/2024 11:37 AM POST CLOSING SPECIALIST Plan of Treatment Upcoming Encounters Date Type Department Care Team (Late st Contact Info) Description 11/06/2024 8:30 AM CDT Office Visit [facility] Oncology and Hematology - [place] [address] [place] [address] Yolanda Snow MD [address] [place] [address] Health Maintenance Due Date Last Done Comments DIABETES ANNUAL FOOT EXAM 11/19/1961 DIABETES ANNUAL RETINAL EXAM 11/19/1961 DIABETES HBA1C Q 6 MONTHS 11/19/1961 DIABETES MICROALBUMIN ANNUAL SCREEN 11/19/1961 LDL CHOLESTEROL ANNUAL 11/19/1961 DTAP/TDAP/TD VACCINES (1 - Tdap) 11/19/1962 ZOSTER VACCINE (1 of 2) 11/19/1993 PNEUMOCOCCAL VACCINE 50+ YEARS (2 of 2 - PCV) 09/04/19 14 09/04/2012 RSV VACCINE (60+ or ) (1 - 1-dose 75+ series) 11/19/2018 INFLUENZA VACCINE (#1) 2024 Medicare [place]) Prev entative Visit/Annual Wellness Visit 07/11/2024 Procedures Procedure Name Priority Date/Time Associated Diagnosis Comments CBC WITH AUTODIFFERENTIAL Routine 2024 12:44 PM CDT BASIC METABOLIC PANEL Routine 10/16/2024 12:42 PM CDT COMPREHENSIVE METABOLIC PANEL Routine 10/16/2024 8:15 AM CDT BASIC METABOLIC PANEL Routine 10/09/2024 1:10 PM CDT COMPREHENSIVE METABOLIC PANEL Routine 10/09/2024 1:08 PM CDT BASIC METABOLIC PANEL Routine 09/25/2024 8:05 AM CDT BASIC METABOLIC PANEL Routine 08/17/2024 8:58 AM POST CLOSING SPECIALIST from Last 3 Months Results * CBC WITH AUTODIFFERENTIAL (10/16/2024 12:44 PM CDT) Blood us Agustin Brown MD HEMATOLOGY ORDERABLES Final Res ult * BASIC METABOLIC PANEL (10/16/2024 12:42 PM CDT) Only the most recent of4 resultswithin the time period is included. Blood us Agustin Brown MD CHEMISTRY ORDERABLES Final Resu lt * COMPREHENSIVE METABOLIC PANEL (10/16/2024 8:15 AM CDT) Only the most recent of2 resultswithin the time period is included. Blood us Agustin Brown MD CHEMISTRY ORDERABLES Final Resu lt from Last 3 Months Insurance [employer] Medicare Part D Care Teams Expense Analyst Relationship Specialty Start Date End Date Chaka Colin MD [address] [facility] [place] [address] PCP - General Family Practice 08/09/24
== END 2024-10-23 10:54 | disposition home or self-care (01) ==
PROVIDERS: PCP Family Medicine; Visit Provider Internal Medicine Hematology & Oncology
DX: I63.9 Cerebral infarction, unspecified (principal); G93.6 Cerebral edema; G93.9 Disorder of brain, unspecified; R22.0 Localized swelling, mass and lump, head; C34.90 Malignant neoplasm of unspecified part of unspecified bronchus or lung
CPT/HCPCS: 70450; 70553; A9579

== ENCOUNTER 2024-10-23 17:05 | Emergency (ER) | payer OTHER, SELFPAY ==
[2024-10-23] VITALS (8 sets, daily range): BP systolic 114–129; BP diastolic 69–77; PULSE 70–76; RESP 15–18; TEMP 36.6; O2SAT 95–98
--- OUTSIDE RECORDS SUMMARY | 2024-10-23 17:10 | XMS_ITS | Encounter Summary ---
Author Organization [facility] Address [address] [facility] [place] [address] Care Team Providers Care Resource Management Specialist Name Role Phone Almas Stapleton MD Unavailable [phone] Alejandro Kellogg DO Primary Care Provider [phone] Encounter Details Date Type Department Care Team (Late st Contact Info) Description 08/16/[address] [facility] - Pathology Lab [address] [place] [address] Preston Rowland MD [address] [address] Illness, unspecified Social History Tobacco Use Types Packs/Day Years Used Date Smoking Tobacco: Former Cigarettes 1 25 0 07/11/1971 - 07/11/1996 Smokeless Tobacco: Never Alcohol Use Standard Drinks/Week Comments Yes 22.5 (1 standard drink = 0.6 oz pure alcohol) 2 drinks/day Sex and Gender Information Value Date Recorded Sex Assigned at Not on file Legal Sex Male 12:44 PM SENIOR DATASTAGE DEVELOPER Gender Identity Not on file Sexual Orientation Not on file documented as of this encounter Plan of Treatment Pending Results Name Type Priority Associated Diagnoses Date /Time SLIDE PREP HISTOLOGY Pathology Cytology Routine Illness, unspecified 08/10/2024 documented as of this encounter Visit Diagnoses Diagnosis Illness, unspecified documented in this encounter Care Teams Resource Management Specialist Relationship Specialty Start Date End Date Alejandro Kellogg DO [facility] [place] [address] PCP - General 02/23/22 Almas Stapleton MD Orthopedic Surgery 09/01/11 documented as of this encounter
--- OUTSIDE RECORDS SUMMARY | 2024-10-23 17:10 | XMS_ITS | Encounter Summary ---
Author Organization [facility] Address [address] [place] [address] Care Team Providers Care Hoop Punch Operator Helper Name Role Phone Chaka Colin MD Primary Care Provider Reason for Referral * MRI (Urgent) - Closed Specialty Diagnoses / Procedures Referred By Contac t Referred To Contact Diagnoses Cerebrovascular accident (CVA), unspecified mechanism (CMS/HCC) Procedures MRI BRAIN W WO CONTRAST Agustin Brown MD [address] [place] [address] Phone: tel: fax: [place] [phone] Referral ID Status Reason Start Date Expiration Date V isits Requested Visits Authorized [id number] Closed STL CTS 10/23/2024 01/21/2025 1 1 Encounter Details Date Type Department Care Team (Late st Contact Info) Description 10/23/2024 Orders Only [facility] Oncology and Hematology [place] [address] [address] [facility] [address] [place] [address] Agustin Brown MD [address] [place] [address] Cerebrovascular accident (CVA), unspecified mechanism (CMS/HCC) (Primary Dx) Social History Tobacco Use Types Packs/Day Years Used Date Smoking Tobacco: Never Smokeless Tobacco: Never Alcohol Use Standard Drinks/Week Comments Yes 0 (1 standard drink = 0.6 oz pur e alcohol) Occasionally Sex and Gender Information Value Date Recorded Sex Assigned at Not on file 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 Gender Identity Not on file Sexual Orientation Not on file documented as of this encounter Plan of Treatment Upcoming Encounters Date Type Department Care Team (Late st Contact Info) Description 11/06/2024 8:30 AM CDT Office Visit [facility] Oncology and Hematology - [place] [address] [place] [address] Yolanda Sonw MD [address] [place] [address] Scheduled Orders Name Type Priority Associated Diagnoses Orde r Schedule MRI BRAIN W WO CONTRAST Imaging Stat Cerebrovascular accident (CVA), unspecified mechanism (CMS/HCC) Expected: 10/23/2024, Expires: 10/23/2025 documented as of this encounter Procedures Procedure Name Priority Date/Time Associated Diagnosis Comments CT HEAD W CONTRAST Routine 10/23/2024 4:18 PM CDT BASIC METABOLIC PANEL Routine 10/23/2024 3:59 PM CDT documented in this encounter Results * CT HEAD W CONTRAST (10/23/2024 4:18 PM CDT) Anatomical Region Laterality Modality Head Computed Tomogra phy Agustin Brown MD CT ORDERABLES Final Result * BASIC METABOLIC PANEL (10/23/2024 3:59 PM CDT) Blood Agustin Brown MD CHEMISTRY ORDERABLES Final Resu lt documented in this encounter Visit Diagnoses Diagnosis Cerebrovascular accident (CVA), unspecified mechanism (CMS/HCC)- Primary documented in this encounter Care Teams Hoop Punch Operator Helper Relationship Specialty Start Date End Date Chaka Colin MD [address] [facility] [place] [address] PCP - General Family Practice 08/09/24 documented as of this encounter
--- OUTSIDE RECORDS SUMMARY | 2024-10-23 17:10 | XMS_ITS | Encounter Summary ---
Author Organization [facility] Address [address] [place] [address] Care Team Providers Care Car Stereo Installer Name Role Phone Chaka Colin MD Primary Care Provider Reason for Referral * CT Scan (Urgent) - Open Specialty Diagnoses / Procedures Referred By Contac t Referred To Contact Diagnoses Cerebrovascular accident (CVA), unspecified mechanism (CMS/HCC) Procedures CT HEAD WO CONTRAST Agustin Brown MD [address] [place] [address] Phone: tel: fax: [place] [phone] Referral ID Status Reason Start Date Expiration Date V isits Requested Visits Authorized [id number] Open STL CTS 10/23/2024 11/23/2025 1 1 Encounter Details Date Type Department Care Team (Late st Contact Info) Description 10/22/2024 Orders Only [facility] Oncology and Hematology [place] [address] [address] [facility] [address] [place] [address] Agustin Brown MD [address] [place] [address] Cerebrovascular accident (CVA), unspecified mechanism (CMS/HCC) (Primary Dx); Prostate cancer (CMS/HCC) Social History Tobacco Use Types Packs/Day Years Used Date Smoking Tobacco: Never Smokeless Tobacco: Never Alcohol Use Standard Drinks/Week Comments Yes 0 (1 standard drink = 0.6 oz pur e alcohol) Occasionally Sex and Gender Information Value Date Recorded Sex Assigned at Not on file Legal Sex Male 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 Gender Identity Not on file Sexual Orientation Not on file documented as of this encounter Plan of Treatment Upcoming Encounters Date Type Department Care Team (Late st Contact Info) Description 11/06/2024 8:30 AM CDT Office Visit [facility] Oncology and Hematology [facility] [address] [place] [address] Yolanda Snow MD [address] [place] [address] Scheduled Orders Name Type Priority Associated Diagnoses Orde r Schedule CT HEAD WO CONTRAST Imaging Stat Cerebrovascular accident (CVA), unspecified mechanism (CMS/HCC) Expected: 10/23/2024, Expires: 10/23/2025 documented as of this encounter Visit Diagnoses Diagnosis Cerebrovascular accident (CVA), unspecified mechanism (CMS/HCC)- Primary Prostate cancer (CMS/HCC) Malignant neoplasm of prostate documented in this encounter Care Teams Car Stereo Installer Relationship Specialty Start Date End Date Chaka Colin MD [address] [facility] [place] [address] PCP - General Family Practice 08/09/24 documented as of this encounter
--- OUTSIDE RECORDS SUMMARY | 2024-10-23 17:10 | XMS_ITS | Continuity of Care Document ---
Author Organization [facility] Address [address] [facility] [address] [place] [address] Phone Care Team Providers Care Hostel Parent Name Role Phone Ambriz Katelynn BURGESS Unavailable [...] Diagnoses Date Provider Providers Copied on Encounter [facility], [address] [address], [place], [place], [id number], tel:[phone] [place] No Information [address] [facility], [address], [place], [address], [place]. tel: [phone] [facility], [address] [address], [place], [place], [id number], tel:[phone] [place] No Information November-0 1-201 3 Ambriz Katelynn. [address] [place] [address], [address], [place], [facility], . tel: [phone] Referring Provider: Moises [address] [place] [address], [place], [place], [facility]. tel:[phone] [place], [place] [address], [place], [place], [id number], tel:[phone] [place] No Information Oct-2 9-201 3 Ambriz Katelynn. [address] [place] [address], [address], [place], [facility], . tel: [phone] Referring Provider: Moises [address] [place] [address], [place], [place], [facility]. tel:[phone] [place], [place] [address] [address], [place], [place], [id number], tel:[phone] [place] No Information Oct-2 4-201 3 Ambriz Katelynn. [address] [place] [address], [address], [place], [facility], . tel: [phone] Referring Provider: Moises [address] [place] [address], [place], [place], [facility]. tel:[phone] [facility] [address] [facility] [address], [place], [id number], tel:[phone] [place] No Information Oct-2 2-201 3 Ambriz Katelynn. [address] [place] [address], [address], [place], [facility], . tel: [phone] Referring Provider: Moises Phillip [address], [facility]. tel:[phone] [facility], [address] [place], [place] [address] [address], [place], [place], [id number], tel:[phone] [place] No Information Oct-1 8-201 3 Ambriz Katelynn. [address] [place] [address] Drive, [address], [place], [place], [facility], . tel:[phone] Referring Provider: Moises Phillip [facility] [address], [place], [address]. tel:[phone] [facility] [place], [address] [facility] [address], [place], [place], [id number], [place] tel:[phone] [place] Pain in joint involving lower leg Apr-1 6-[address] [facility], [address], [place], [place], [facility], . tel:[phone] Referring Provider: Moises Phillip [facility] [address], [place], [address]. tel:[phone] Family History Family Member Type Diagnosis Age At Onset No Information Payers Payer name Insurance type Covered constitution party ID Maeve morris(s) [employer] CI [id number] Social History Type Description Quantity Date Captured [...]
--- OUTSIDE RECORDS SUMMARY | 2024-10-23 17:10 | XMS_ITS | Continuity of Care Document ---
Author Organization [employer] [facility] Address [address] [place] [address] Phone Care Team Providers Care Logistics Supply Officer Name Role Phone Wilian Martinez ODssica Unavailable [...] Copied on Encounter Office/outpa tient Visit, Est [facility], [facility], [address], [place], [place], [address], [place] tel:[phone] SEC Berny ROSALES Professional 6 month IOL check (chief complaint) PrediabetesOt her secondary cataract, bilateralPres ence of intraocular lensVitreous degeneration, right eye 4 Juan OD Radha. [address], [address], [place], [place], [address], [place]. tel:[phone] Referring Provider: Carly Guzman, [id number] [place] [address] [address], [place], [address] . tel:[phone] [facility], [address], [place], [place], [address], [place] tel:[phone] SEC Berny ROSALES Professional 2 Week CE/IOL Symfony/Tor ic PO (chief complaint) Post op visit 4 Juan Cedenossica. [address], [address], [place], [place], [address], [place]. tel:[phone] Referring Provider: Carly Guzman, [facility] [address], [place], [address] . tel:[phone] [facility], [address], [place], [place], [address], [place] tel:[phone] SEC Berny ROSALES Professional Post-Op (chief complaint) Post op visit 3 Isabel Carroll. [address], [place], [place], [address], [place]. tel:[phone] Referring Provider: Carly Guzman, [address], [place], [address] . tel:[phone] [facility], [address], [place], [place], [address], [place] tel:[phone] [address] [facility] [place] No Information 3 Horacio Rivera. [address], [address], [place], [place], [address], [place]. tel:[phone] Referring Provider: Carly Guzman, [address] [place] [address] [address], [place], [address] . tel:[phone] [facility], [address], [place], [place], [address], tel:[phone] SEC Berny ROSALES Professional 2 Week CE/IOL Symfony Toric PO (chief complaint) Post op visit Nov 0- 3 Isabel Carroll. [address] [place] [address] [address], [address], [place], [place], [address], [place]. tel:[phone] Referring Provider: Carly Guzman, [facility] [address], [place], [address] . tel:[phone] [facility], [address], [place], [place], [address], tel:[phone] SEC Berny ROSALES Professional Post-Op (chief complaint) Post op visit Apr- 3 Juan OD Radha. [facility] [address], [place], [place], [address], [place]. tel:[phone] Referring Provider: Carly Guzman, [facility] [address], [place], [address] . tel:[phone] [facility], [address] [place] [address] [address], [place], [place], [address], [place] tel:[phone] [facility] No Information Apr- 3 Horacio Rivera. [address], [address], [place], [place], [address], [place]. tel:[phone] Referring Provider: Carly Guzman, [facility] [address], [place], [address] . tel:[phone] Office/outpa tient Visit, Est [facility], [address], [place], [place], [address], [place] tel:[phone] SEC [place] Cataract evaluation (chief complaint) Combined forms of age-related cataract, bilateralHist ory of laser assisted in situ keratomileusi sType 2 diabetes mellitus without complications Nodular corneal degeneration, left eyeGlaucoma suspect low risk, right eye Sep- 3 Horacio Rivera. [facility] [address], [address], [place], [place], [address], . tel:[phone] Referring Provider: Carly Hall OD K, [facility] [address], [place], [address] . tel:[phone] [facility], [facility] [address], [place], [place], [address], tel:[phone] SEC [place] Professional Complete Exam (chief complaint) History of laser assisted in situ keratomileusi sType 2 diabetes mellitus without complications Combined forms of age-related cataract, bilateralMGD (meibomian gland dysfunction)B ilateral dry eyes Sep- 3 Isabel Carroll. [facility] [address], [place], [place], [address], [place]. tel:[phone] Referring Provider: Miguel Cowan, [facility] [address], [place], [address] . tel:[phone] [facility], [facility] [address], [place], [place], [address], [place] tel:[phone] SEC Yordan Adams Complete exam (chief complaint) Type 2 diabetes mellitus without complications Combined forms of age-related cataract, bilateralNodu lar corneal degeneration, bilateralLong term (current) use of oral hypoglycemic drugs 2 Horacio Rivera. [facility] [address], [address], [place], [place], [address], [place]. tel:[phone] Referring Provider: Miguel Cowan, [facility] [address], [place], [address] . tel:[phone] Office/outpa tient Visit, [facility], [address] [place], [place] [address], [place], [place], [address], tel:[phone] SEC [place] N Lindberg[place] Cataract Check (chief complaint) Combined forms of age-related cataract, bilateralType 2 diabetes mellitus without complications History of laser assisted in situ keratomileusi sNodular corneal degeneration, left eye 0-202 1 Horacio Rivera. [facility] [address], [address], [place], [place], [address], [place]. tel:[phone] Referring Provider: Miguel Cowan, [facility] [address], [place], [address] . tel:[phone] Office/outpa tient Visit, [facility], [address] [place], [place] [address], [place], [place], [address], tel:[phone] SEC Savannahradha Watsonh 6 mo cataract check (chief complaint) Combined forms of age-related cataract, bilateralType 2 diabetes mellitus without complications History of laser assisted in situ keratomileusi s Nov-0 9-202 0 Horacio Rivera. [facility] [address], [address], [place], [place], [address], [place]. tel:[phone] Referring Provider: Miguel Cowan, [facility] [address], [place], [address] . tel:[phone] [facility], [address] [place], [place] [address] [address], [place], [place], [address], [place] tel:[phone] SEC [place] N Lindbergh Complete Exam (chief complaint) Type 2 diabetes mellitus without complications Combined forms of age-related cataract, bilateralHist ory of laser assisted in situ keratomileusi s Nov-0 8-201 9 Horacio Rivera. [facility] [address], [address], [place], [place], [address], [place]. tel:[phone] Referring Provider: Miguel Cowan, [facility] [address], [place], [address] . tel:[phone] [employer] [facility], [address], [place], [place], [address], tel:[phone] SEC [place] N Lindbergh Complete Exam (chief complaint) Type 2 diabetes mellitus without complications Combined forms of age-related cataract, bilateralHist ory of laser assisted in situ keratomileusi sNodular corneal degeneration, left eye 8 Horacio Miguel. [address], [address], [place], [place], [address], . tel:[phone] Referring Provider: Miguel Cowan, [employer] [address], [place], [address] . tel:[phone] [employer] [facility], [facility] [address], [place], [place], [address], tel:[phone] SEC Yordan N Lindbergh complete exam (chief complaint) Type 2 diabetes mellitus without complications halfway (current) use of oral hypoglycemic drugsCombined forms of age-related cataract, bilateral 7 Horacioavani Rivera. [facility] [address], [address], [place], [place], [address], . tel:[phone] Referring Provider: Miguel Cowan, [employer] [address], [place], [address] . tel:[phone] [employer] [facility], [address], [place], [place], [address], tel:[phone] SEC [place] N Lindbergh Blurry vision (chief complaint) No Information 5 Horacio Rivera. [address], [address], [place], [place], [address], [place]. tel:[phone] Referring Provider: Miguel Cowan, [address], [place], [address] . tel:[phone] [employer] [facility], [address], [place], [place], [address], [place] tel:[phone] No Information 5 Heydi Pan. [address], [place], [address], [place]. tel:[phone] [employer] [facility], [address], [place], [place], [address], [place] tel:[phone] SEC Yordan N Lindbergh No Information 4 Horacio Rivera. [address], [address], [place], [place], [address], [place]. tel:[phone] Referring Provider: Miguel Cowan, [address], [place], [address] . tel:[phone] Office/outpa tient Visit, [facility], [address], [place], [place], [address], [place] tel:[phone] SEC Yordan Weberbergh No Information 3 Horacio Rivera. [address], [address], [place], [place], [address], [place]. tel:[phone] Referring Provider: Miguel Cowan, [address], [place], [address] . tel:[phone] [facility], [address], [place], [place], [address], [place] [phone] SEC [place] Juan Lindbergh No Information 1 Horacio Rivera. [address], [address], [place], [place], [address], [place]. tel:[phone] Referring Provider: Miguel Cowan, [address], [place], [address] . tel:[phone] [facility] [facility], [address], [place], [place], [address], tel:[phone] SEC Yordan Adams No Information 201 0 Horacio Rivera. [address], [address], [place], [place], [address], [place]. tel:[phone] [facility], [address], [place], [place], [address], [phone] SEC Yordan Adams No Information [address] Hoarcio Rivera. [address], [address], [place], [place], [address], [place]. tel:[phone] Family History Family Member Type Diagnosis Age At Onset Mother Problem (finding) diabetes bella pizano in first degree relative Payers Payer name Insurance type Covered green party ID Authorkya morris(s) [employer] [id number] Social History Type Description Quantity Date Captured [...] nstructions completed Patient Education Cataracts: Care Instruc tions completed Patient Education Cataracts: Care Instruc tions [...] complications - 1 yr complete Related to Miguelito fierro ist of assessments above - Diabetes type [...] - 1 year complete Related to Roxy myerses Type II Cataract, Nuclear Sc lerosis, OUlasik [...]
--- OUTSIDE RECORDS SUMMARY | 2024-10-23 17:10 | XMS_ITS | Referral Summary ---
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
--- OUTSIDE RECORDS SUMMARY | 2024-10-23 17:10 | XMS_ITS | Clinical Summary ---
Author Organization [facility] Address [address] [place] [address] Care Team Providers Care Semaphore Operator Name Role Phone Almas Stapleton MD Unavailable [phone] Alejandro Kellogg DO Primary Care Provider [phone] Source Comments [facility],non-owned Affiliates and Associated Physician Practices is amultiple site organization consisting of ambulatory clinics and hospital sitesin [place] and [place]. This disclosure is being madepursuant to the Care Everywhere program and may not contain all information available regarding this patient. 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 Gender Identity Not on file Sexual Orientation Not on file Last Filed Vital Signs Vital Sign Reading Time Taken Comments Blood Pressure 117/74 09/04/2012 6:06 AM FISHING BOAT MATE Pulse 78 09/04/2012 6:06 AM FISHING BOAT MATE Temperature 36.9 C (98.4 F) 09/04/2012 6:06 AM FISHING BOAT MATE Respiratory Rate 18 09/04/2012 6:06 AM FISHING BOAT MATE Oxygen Saturation 98% 09/04/2012 6:06 AM FISHING BOAT MATE Inhaled Oxygen Concentration - - Weight 88.4 kg (194 lb 12.8 oz) 09/01/2012 7:04 AM FISHING BOAT MATE Height 175.3 cm (5' 9 ) 09/01/2012 7:04 AM FISHING BOAT MATE Body Mass Index 28.77 09/01/2012 7:04 AM FISHING BOAT MATE Plan of Treatment Health Maintenance Due Date [...] to complete this topic [place] [address] [facility] MEDICARE [place] MED[place]ARE [place] MEDICARE [place] MEDICARE Advance Directives Documents on File Type Date Recorded Patient Research And Development Technician Expl anation Adv Directive/Living Will/POA 08/16/2011 11:00 AM * FULL RESUSCITATION (Latest Code Status on File) Date Activated Date Inactivated Comments 09/01/2012 11:08 AM 09/04/2012 12:46 PM * FULL RESUSCITATION Date Activated Date Inactivated Comments 08/12/2011 1:57 PM 08/15/2011 11:27 PM Care Teams Semaphore Operator Relationship Specialty Start Date End Date Alejandro Kellogg DO [facility] [place] [address] PCP - General 02/23/22 Almas Stapleton MD Orthopedic Surgery 09/01/11
--- OUTSIDE RECORDS SUMMARY | 2024-10-23 17:10 | XMS_ITS | Encounter Summary ---
Author Organization [facility] [employer] [facility] Address [address] [place] [address] Care Team Providers Care Supervisor Carding Name Role Phone Chaka Colin MD Primary Care Provider Encounter Details Date Type Department Care Team ([facility] Contact Info) Description 10/17/2024 Orders Only [facility]3] Oncology and Hematology [facility] [address] [place] [address] Agustin Brown MD [address] [facility] [address] [place] [address] Social History Tobacco Use Types Packs/Day Years Used Date Smoking Tobacco: Never Smokeless Tobacco: Never Alcohol Use Standard Drinks/Week Comments Yes 0 (1 standard drink = 0.6 oz pur e alcohol) Occasionally Sex and Gender Information Value Date Recorded Sex Assigned at Not on file 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 Gender Identity Not on file Sexual Orientation Not on file documented as of this encounter Plan of Treatment Upcoming Encounters Date Type Department Care Team (Late Contact Info) Description 11/06/2024 8:30 AM CDT Office Visit [facility]3] Oncology and Hematology [facility] [address] [place] [address] Yolanda Snow MD [address] [place] [address] documented as of this encounter Procedures Procedure Name Priority Date/Time Associated Diagnosis Comments COMPREHENSIVE METABOLIC PANEL Routine 10/16/2024 8:15 AM CDT documented in this encounter Results * COMPREHENSIVE METABOLIC PANEL (10/16/2024 8:15 AM CDT) Blood Agustin Brown MD CHEMISTRY ORDERABLES Final Resu lt documented in this encounter Visit Diagnoses Not on filedocumented in this encounter Care Teams Supervisor Carding Relationship Specialty Start Date End Date Chaka Colin MD [facility] [facility] [place] [address] PCP - General Family Practice 08/09/24 documented as of this encounter
--- OUTSIDE RECORDS SUMMARY | 2024-10-23 17:10 | XMS_ITS | Clinical Summary ---
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
--- OUTSIDE RECORDS SUMMARY | 2024-10-23 17:10 | XMS_ITS | Encounter Summary ---
Author Organization [facility] Address [address] [facility] [place] [address] Care Team Providers Care Dairy Manufacturing Technologist Name Role Phone Almas Stapleton MD Unavailable [phone] Alejandro Kellogg DO Primary Care Provider Encounter Details Date Type Department Care Team (Late st Contact Info) Description 08/13/2024 Lab Requisition [facility] - Pathology Lab [address] [place] [address] Preston Rowland MD [address] [address] Illness, unspecified Social History Tobacco Use Types Packs/Day Years Used Date Smoking Tobacco: Former Cigarettes 1 25 0 07/11/1971 - 07/11/1996 Smokeless Tobacco: Never Alcohol Use Standard Drinks/Week Comments Yes 22.5 (1 standard drink = 0.6 oz pure alcohol) 2 drinks/day Sex and Gender Information Value Date Recorded Sex Assigned at Not on file 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 Gender Identity Not on file Sexual Orientation Not on file documented as of this encounter Plan of Treatment Pending Results Name Type Priority Associated Diagnoses Date /Time SLIDE PREP HISTOLOGY Pathology Cytology Routine Illness, unspecified 08/10/2024 documented as of this encounter Visit Diagnoses Diagnosis Illness, unspecified documented in this encounter Care Teams Dairy Manufacturing Technologist Relationship Specialty Start Date End Date Alejandro Kellogg DO [facility] [place] [address] PCP - General 02/23/22 Almas Stapleton MD Orthopedic Surgery 09/01/11 documented as of this encounter
--- OUTSIDE RECORDS SUMMARY | 2024-10-23 17:10 | XMS_ITS | Clinical Summary ---
[facility] Address [address] [place] [address] Care Team Providers Care Information Manager Name Role Phone Chaka Colin MD [...] Department Care Team Description 10/23/2024 Orders Only [facility] Oncology and Hematology - [place] [address] [place] [address] Agustin Brown MD Cerebrovascular accident (CVA), unspecified mechanism (CMS/HCC) (Primary Dx) 10/22/2024 Orders Only [facility] Oncology and Hematology - [place] [address] [place] [address] Agustin Brown MD Cerebrovascular accident (CVA), unspecified mechanism (CMS/HCC) (Primary Dx); Prostate cancer (CMS/HCC) 10/17/2024 Orders Only [facility] Oncology and Hematology - [place] [address] [place] [address] Agustin Brown MD 10/16/2024 9:45 AM CDT Office Visit [facility] Oncology and Hematology - [place] [address] Agustin Brown MD Prostate cancer (CMS/HCC) (Primary Dx) 10/16/2024 Orders Only [facility] Oncology and Hematology - [place] [address] Agustin Brown MD 10/15/2024 Refill [facility] Oncology and Hematology - [place] [address] Agustin Brown MD 10/15/2024 Orders Only [facility] Oncology and Hematology - [place] [address] Agustin Brown MD Prostate cancer (CMS/HCC) 10/09/2024 9:30 AM CDT Office Visit [facility] Oncology and Hematology - [place] [address] [place] [phone] Agustin Brown MD Prostate cancer (CMS/HCC) (Primary Dx) 10/09/2024 Orders Only [facility] Oncology and Hematology - [place] [address] [place] [address] Agustin Brown MD Prostate cancer ([facility]/HCC) (Primary Dx) 10/09/2024 Telephone [facility] Oncology and Hematology - [place] [address] [place] [address] Agustin Brown MD Fatigue 10/01/2024 Orders Only [facility] Oncology and Hematology - [place] [address] [place] [address] Agustin Brown MD Prostate cancer ([facility]/HCC) 09/27/2024 Orders Only [facility] Oncology and Hematology - [place] [address] [place] [phone] Agustin Brown MD 09/26/2024 External Device Data STL ABSTRACTION Provider, Abstract 09/25/[address] [facility] [address] [place] [phone] Lina Quintanilla, PHARMACIST Specialty Pharmacy Clinical Assessment 09/25/[address] [facility] [address] [place] [phone] Michelle Ruiz, PHARMACIST Specialty Pharmacy Refill Coordination 09/20/2024 Abstract [facility] Oncology and Hematology - [place] [address] [place] [phone] Agustin Brown MD 09/19/2024 Refill [facility] Oncology and Hematology - [place] [address] [place] [address] Agustin Brown MD 09/18/2024 Orders Only [facility] Oncology and Hematology - [place] [address] [place] [address] Agustin Brown MD Prostate cancer ([facility]/HCC) (Primary Dx) 09/18/2024 Refill [facility] Oncology and Hematology - [place] [address] [place] [address] Agustin Brown MD 09/18/2024 Refill [facility] Oncology and Hematology - [place] [address] [place] [address] Agustin Brown MD 09/15/2024 External Device Data STL ABSTRACTION Provider, Abstract 09/14/2024 External Device Data STL ABSTRACTION Provider, Abstract 08/28/2024 External Device Data STL ABSTRACTION Provider, Abstract 08/17/2024 9:00 AM WORDPRESS DEVELOPER Office Visit [facility] Oncology and Hematology [facility] [address] [place] [address] Agustin Brown MD Prostate cancer (CMS/HCC) (Primary Dx) 08/17/[address] [facility] [address] [place] [address] [place] [phone] Abbie Garcia, PHARMACIST 08/17/2024 Orders Only [facility] Oncology and Hematology [facility] [address] [place] [address] Agusitn Brown MD 08/14/2024 External Device Data STL ABSTRACTION Provider, Abstract 08/14/2024 External Device Data STL ABSTRACTION Provider, Abstract 08/14/2024 External Device Data STL ABSTRACTION Provider, Abstract 08/08/2024 11:30 AM WORDPRESS DEVELOPER Office Visit [facility] Oncology and Hematology [facility] [address] [place] [address] Agustin Brown MD Liver mass (Primary Dx); [...] on file Legal Sex Male 4:26 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 Gender Identity Not on file Sexual [...] cm (5' 9 ) 08/08/2024 11:37 AM WORDPRESS DEVELOPER Body Mass Index 25.1 08/08/2024 11:37 AM WORDPRESS DEVELOPER Plan of Treatment Upcoming Encounters Date Type Department Care Team (Late st Contact Info) Description 11/06/2024 8:30 AM CDT Office Visit [facility] Oncology and Hematology - [place] [address] [place] [address] Yolanda Snow MD [address] [place] [address] Health Maintenance Due Date Last [...] Comments CT HEAD W CONTRAST Routine 10/23/2024 4: 18 PM CDT BASIC METABOLIC PANEL Routine 10/23/2024 3:59 PM CDT CBC WITH AUTODIFFERENTIAL Routine 2024 12:44 PM CDT BASIC METABOLIC PANEL Routine 10/16/2024 12:42 PM CDT COMPREHENSIVE METABOLIC PANEL Routine 10/16/2024 8:15 AM CDT BASIC METABOLIC PANEL Routine 10/09/2024 1:10 PM CDT COMPREHENSIVE METABOLIC PANEL Routine 10/09/2024 1:08 PM CDT BASIC METABOLIC PANEL Routine 09/25/2024 8:05 AM CDT BASIC METABOLIC PANEL Routine 08/17/2024 8:58 AM WORDPRESS DEVELOPER from Last 3 Months Results * CT HEAD W CONTRAST (10/23/2024 4:18 PM CDT) Anatomical Region Laterality Modality Head Computed Tomogra phy us Agustin Brown MD CT ORDERABLES Final Result * BASIC METABOLIC PANEL (10/23/2024 3:59 PM CDT) Only the most recent of5 resultswithin the time period is included. Blood us Agustin Brown MD CHEMISTRY ORDERABLES Final Resu lt * CBC WITH AUTODIFFERENTIAL (10/16/2024 12:44 PM CDT) Blood us Agustin Brown MD HEMATOLOGY ORDERABLES Final Res ult * COMPREHENSIVE METABOLIC PANEL (10/16/2024 8:15 AM CDT) Only the most recent of2 resultswithin the time period is included. Blood us Agustin Brown MD CHEMISTRY ORDERABLES Final Resu lt from Last 3 Months Insurance [employer] Medicare Part D Care Teams Information Manager Relationship Specialty Start Date End Date Chaka Colin MD [address] [facility] [place] [address] PCP - General Family Practice 08/09/24
--- NOTE | 2024-10-23 17:27 | ED_ITS ---
HPI - General Adult General Chief complaint: Unspecified Stated complaint: Brought from MRI to see Neurologist Time Seen by Provider: 10/23/24 17:16 History of Present Illness HPI narrative: Patient 78-year-old gentleman presents emergency department with chief complaint of left-sided weakness. The patient went to get his infusion this morning for metastatic prostate cancer the patient received his dose of chemo and the infusion center noticed that he was listing to the left the patient had an outpatient CT scan and then got a MRI and the patient was told to come to the emergency department. Patient is on Taxotere for chemotherapy Related Data Home Medications ?Medication ?Instructions ?Recorded ?Confirmed ?Last Taken ?Type prednisone 5 mg tablet 5 mg PO BID 08/31/24 09/19/24 Unknown History Allergies Allergy/AdvReac Type Severity Reaction Status Date / Time No Known Allergies Allergy Verified 10/23/24 17:18 Review of Systems 2 Review of Systems: A 10 system review of systems was completed on the patient and is negative except for what is stated in the HPI. Nursing and ancillary documentation was reviewed. [facility] Past Medical History Medical History Anemia Prediabetes Family history of melanoma History of colonic polyps Post-COVID chronic cough (~01/2024) Basal cell carcinoma Prostate cancer (~2020) Other and unspecified hyperlipidemia Osteoarthritis of knee, unspecified Surgical History Surgical History History of tonsillectomy History of cataract extraction (~2023) b/l Social History Social History Smoking packs per day: 1 Smoking cigarettes per day: 20.0 Years smoked: 20 Smoking pack-years: 20.00 Smoking status: Former smoker Tobacco type: cigarettes Second hand tobacco smoke exposure: No Smoking end date: 07/11/99 Alcohol intake: current Drinks per week: 15 Alcohol use details: Liquor Substance use: never Substance use type: does not use Lack of Transportation: No Lack of Food: Never True Current Housing: I Have Housing Concerned About Future Housing: No Difficulty Paying Gas/Electric Bills: No Difficulty Paying for Meds: No Currently Unemployed: No Education: High School Diploma/GED Difficulty w/ Childcare or Family Care: No Living arrangements: with family Additional living arrangements comments: Occupation/Education: retired Gender identity (if verbalized by the patient): Male Sexual Orientation (if Verbalized by the Patient): Straight or Heterosexual Spiritual care concerns: No Agree to blood products: Yes Exam Narrative: GENERAL: Well-appearing, well-nourished, and in no acute distress. HEAD: Normocephalic, atraumatic. EYES: PERRLA and EOMI. ENT: Nares clear, no rhinorrhea or epistaxis. Mucous membranes moist. NECK: Supple. CHEST: Clear to auscultation. No respiratory distress. HEART: Regular rate and rhythm. No murmur heard. Normal peripheral pulses. ABDOMEN: Soft, nontender, nondistended, normal active bowel sounds. EXTREMITIES: Normal range of motion. No edema. SKIN: Warm, dry, no rash. NEURO: No focal deficits. Alert and oriented x3. PSYCH: Normal mood and affect. Course Vital Signs Vital signs: Vital Signs Temperature 36.6 C 10/23/24 17:13 Pulse Rate 72 10/23/24 17:13 Respiratory Rate 18 10/23/24 17:13 Blood Pressure 129/77 10/23/24 17:13 Pulse Oximetry 97 10/23/24 17:13 Oxygen Delivery Room Air 10/23/24 17:13 Temperature 36.6 C 10/23/24 17:13 Pulse Rate 72 10/23/24 17:13 Respiratory Rate 18 10/23/24 17:13 Blood Pressure 129/77 10/23/24 17:13 Pulse Oximetry 97 10/23/24 17:13 Oxygen Delivery Room Air 10/23/24 17:13 Medical Decision Making [facility] Narrative Medical decision making narrative: Differential diagnosis includes metastatic lesion, intracranial hemorrhage, CVA CT head was performed as an outpatient that showed Intracranial focus of fluid attenuation with surrounding vasogenic edema and a subcentimeter focus of intracranial hemorrhage. Possible early subfalcine herniation is suspected secondary to the mass effect. These findings were discussed with Dr. Brown at 11:40 AM. Emergent MRI is planned. MRI shows 1. Prominent vasogenic edema surrounding a 4.1 cm cystic lesion with relatively uniform smooth peripheral rim of enhancement the right frontal lobe and a smaller 6 mm peripherally enhancing lesion in the anterior right parietal lobe. There is no restricted diffusion to suggest abscess and the multiplicity raises concern for metastatic disease this patient with previously demonstrated metastatic lung cancer. 2. Significant local mass including subfalcine herniation was 6 mm right to left midline shift. Due to the size of the mass and also midline shift patient was given 1 g of Solu-Medrol in the emergency department the patient also was loaded with 20 per kilos of Keppra Case was discussed with the [facility] transfer Center the patient was accepted to [facility] on by Dr. Torres Vital Signs Vital Signs: Vital Signs Temperature 36.6 C 10/23/24 17:13 Pulse Rate 72 10/23/24 17:13 Respiratory Rate 18 10/23/24 17:13 Blood Pressure 129/77 10/23/24 17:13 Pulse Oximetry 97 10/23/24 17:13 Oxygen Delivery Room Air 10/23/24 17:13 Temperature 36.6 C 10/23/24 17:13 Pulse Rate 72 10/23/24 17:13 Respiratory Rate 18 10/23/24 17:13 Blood Pressure 129/77 10/23/24 17:13 Pulse Oximetry 97 10/23/24 17:13 Oxygen Delivery Room Air 10/23/24 17:13 Discharge Plan Discharge Clinical Impression: Brain mass, Midline shift of brain Patient Disposition: Acute Care Hospital Condition: Stable Patient Language: Zambian Prescriptions: No Action prednisone 5 mg tablet 5 mg PO BID Patient Comments: . ergocalciferol (vitamin D2) 1,250 mcg (50,000 unit) capsule 1,250 mcg PO WEEKLY Qty: 12 1RF Patient Comments: .. simvastatin 40 mg tablet 40 mg PO QHS Qty: 90 1RF Patient Comments: . Follow-up/Referrals: Natalie Colin MD [Primary Care Provider] - Time of Disposition: 17:57
[2024-10-23] MEDS: levETIRAcetam 1500MG/NACL100ML 1,500 MG/100 ML BAG 600 MG IVPB (17:51)
[2024-10-23] MEDS: methylPREDNISolone SOD SUCC 1,000 MG in DEXTROSE 5% 100 ML 200 MG IVPB (17:56)
--- OUTSIDE RECORDS SUMMARY | 2024-10-23 17:56 | XMS_ITS | Referral Summary ---
Author Organization 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
--- OUTSIDE RECORDS SUMMARY | 2024-10-23 17:56 | XMS_ITS | Clinical Summary ---
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
--- OUTSIDE RECORDS SUMMARY | 2024-10-23 17:56 | XMS_ITS | Clinical Summary ---
[facility] Address [address] [place] [address] Care Team Providers Care Product Architect Name Role Phone Chaka Colin MD Primary [...] Date Type Department Care Team Description 10/23/2024 Emergency [facility] Emergency Department [address] [place] [phone] 10/23/2024 Orders Only [facility] Oncology and Hematology - [place] [address] [place] [phone] Agustin Brown MD Cerebrovascular accident (CVA), unspecified mechanism (CMS/HCC) (Primary Dx) 10/22/2024 Orders Only [facility] Oncology and Hematology - [place] [address] [place] [address] Agustin Brown MD Cerebrovascular accident (CVA), unspecified mechanism (CMS/HCC) (Primary Dx); Prostate cancer (CMS/HCC) 10/17/2024 Orders Only [facility] Oncology and Hematology - [place] [address] [place] [address] Agustin Brown MD 10/16/2024 9:45 AM CDT Office Visit [facility] Oncology and Hematology - [place] [address] [place] [address] Agustin Brown MD Prostate cancer (CMS/HCC) (Primary Dx) 10/16/2024 Orders Only [facility] Oncology and Hematology - [place] [address] [place] [address] Agustin Brown MD 10/15/2024 Refill [facility] Oncology and Hematology - [place] [address] [place] [address] Agustin Brown MD 10/15/2024 Orders Only [facility] Oncology and Hematology - [place] [address] [place] [address] Agustin Brown MD Prostate cancer (CMS/HCC) 10/09/2024 9:30 AM CDT Office Visit [facility] Oncology and Hematology - [place] [address] [place] [phone] Agustin Brown MD Prostate cancer (CMS/HCC) (Primary Dx) 10/09/2024 Orders Only [facility] Oncology and Hematology - [place] [address] [place] [phone] Agustin Brown MD Prostate cancer (CMS/HCC) (Primary Dx) 10/09/2024 Telephone [facility] Oncology and Hematology - [place] [address] [place] [phone] Agustin Brown MD Fatigue 10/01/2024 Orders Only [facility] Oncology and Hematology - [place] [address] [place] [phone] Agustin Brown MD Prostate cancer ([facility]/HCC) 09/27/2024 Orders Only [facility] Oncology and Hematology - [place] [address] [place], [place] [phone] Agustin Brown MD 09/26/2024 External Device Data STL ABSTRACTION Provider, Abstract 09/25/2024 Specialty Pharmacy [facility] [address] [place] [phone] Lina Quintanilla, PHARMACIST Specialty Pharmacy Clinical Assessment 09/25/2024 Specialty Pharmacy [facility] [address] [place] [phone] Michelle Ruiz, PHARMACIST Specialty Pharmacy Refill Coordination 09/20/2024 Abstract [facility] Oncology and Hematology - [place] [address] [place] [address] Agustin Brown MD 09/19/2024 Refill [facility] Oncology and Hematology - [place] [address] [place] [address] Agustin Brown MD 09/18/2024 Orders Only [facility] Oncology and Hematology - [place] [address] [place] [address] Agustin Brown MD Prostate cancer (CMS/HCC) (Primary Dx) 09/18/2024 Refill [facility] Oncology and Hematology - [place] [address] [place] [address] Agustin Brown MD 09/18/2024 Refill [facility] Oncology and Hematology - [place] [address] [place] [address] Agustin Brown MD 09/15/2024 External Device Data STL ABSTRACTION Provider, Abstract 09/14/2024 External Device Data STL ABSTRACTION Provider, Abstract 08/28/2024 External Device Data STL ABSTRACTION Provider, Abstract 08/17/2024 9:00 AM BLACK TOP ROLLER Office Visit [facility] Oncology and Hematology [facility] [address] [place] [address] Agustin Brown MD Prostate cancer (CMS/HCC) (Primary Dx) 08/17/2024 Specialty Pharmacy [facility] [address] [place] [phone] Abbie Garcia, PHARMACIST 08/17/2024 Orders Only [facility] Oncology and Hematology - [place] [address] [place] [address] Agustin Brown MD 08/14/2024 External Device Data STL ABSTRACTION Provider, Abstract 08/14/2024 External Device Data STL ABSTRACTION Provider, Abstract 08/14/2024 External Device Data STL ABSTRACTION Provider, Abstract 08/08/2024 11:30 AM BLACK TOP ROLLER Office Visit [facility] Oncology and Hematology - [place] [address] [place] [address] Agustin Brown MD Liver mass (Primary Dx); [...] on file Legal Sex Male 4:26 PM BLACK TOP ROLLER Gender Identity Not on file Sexual Orientation [...] cm (5' 9 ) 08/08/2024 11:37 AM BLACK TOP ROLLER Body Mass Index 25.1 08/08/2024 11:37 AM BLACK TOP ROLLER Plan of Treatment Upcoming Encounters Date Type Department Care Team (Late st Contact Info) Description 11/06/2024 8:30 AM CDT Office Visit [facility] Oncology and Hematology [facility] [address] [place] [address] Yolanda Snow MD [address] [place] [address] Health Maintenance Due Date Last [...] BASIC METABOLIC PANEL Routine 08/17/2024 8:58 AM BLACK TOP ROLLER from Last 3 Months Results * CT [...] [employer] Medicare Part D Care Teams Product Architect Relationship Specialty Start Date End Date Chaka Colin MD [facility] [facility] [place] [address] PCP - General Family Practice 08/09/24
--- OUTSIDE RECORDS SUMMARY | 2024-10-23 17:56 | XMS_ITS | Encounter Summary ---
Author Organization [facility] Address [address] [facility] [place] [address] Care Team Providers Care Concreter Name Role Phone Almas Stapleton MD Unavailable [phone] Alejandro Kellogg DO Primary Care Provider [phone] Encounter Details Date Type Department Care Team (Late st Contact Info) Description 08/16/2024 Lab Requisition [facility] - Pathology Lab [address] [place] [address] Preston Rowland MD [address] [address] Illness, unspecified Social History Tobacco Use Types Packs/Day Years Used Date Smoking Tobacco: Former Cigarettes 1 25 0 07/11/1971 - 07/11/1996 Smokeless Tobacco: Never Alcohol Use Standard Drinks/Week Comments Yes 22.5 (1 standard drink = 0.6 oz pure alcohol) 2 drinks/day Sex and Gender Information Value Date Recorded Sex Assigned at Not on file 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 Gender Identity Not on file Sexual Orientation Not on file documented as of this encounter Plan of Treatment Pending Results Name Type Priority Associated Diagnoses Date /Time SLIDE PREP HISTOLOGY Pathology Cytology Routine Illness, unspecified 08/10/2024 documented as of this encounter Visit Diagnoses Diagnosis Illness, unspecified documented in this encounter Care Teams Concreter Relationship Specialty Start Date End Date Alejandro Kellogg DO [facility] [place] [phone] PCP - General 02/23/22 Almas Stapleton MD Orthopedic Surgery 09/01/11 documented as of this encounter
--- OUTSIDE RECORDS SUMMARY | 2024-10-23 17:56 | XMS_ITS | Encounter Summary ---
Author Organization [facility] [employer] [facility] Address [address] [place] [address] Care Team Providers Care Kaiako Kohanga Reo Name Role Phone Chaka Colin MD Primary Care Provider Encounter Details Date Type Department Care Team ([facility] Contact Info) Description 10/17/2024 Orders Only [facility] Oncology and Hematology [facility] [address] [place] [address] Agustin Brown MD [address] [facility] [address] [place] [address] Social History Tobacco Use Types Packs/Day Years Used Date Smoking Tobacco: Never Smokeless Tobacco: Never Alcohol Use Standard Drinks/Week Comments Yes 0 (1 standard drink = 0.6 oz pur e alcohol) Occasionally Sex and Gender Information Value Date Recorded Sex Assigned at Not on file 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 Gender Identity Not on file Sexual Orientation Not on file documented as of this encounter Plan of Treatment Upcoming Encounters Date Type Department Care Team (Late Contact Info) Description 11/06/2024 8:30 AM CDT Office Visit [facility] Oncology and Hematology [facility] [address] [place] [address] Yolanda Snow MD [address] [place] [address] documented as of this encounter Procedures Procedure Name Priority Date/Time Associated Diagnosis Comments COMPREHENSIVE METABOLIC PANEL Routine 10/16/2024 8:15 AM CDT documented in this encounter Results * COMPREHENSIVE METABOLIC PANEL (10/16/2024 8:15 AM CDT) Blood Agustin Brown MD CHEMISTRY ORDERABLES Final Resu lt documented in this encounter Visit Diagnoses Not on filedocumented in this encounter Care Teams Kaiako Kohanga Reo Relationship Specialty Start Date End Date Chaka Colin MD [facility] [place] [address] PCP - General Family Practice 08/09/24 documented as of this encounter
--- OUTSIDE RECORDS SUMMARY | 2024-10-23 17:56 | XMS_ITS | Encounter Summary ---
Author Organization [facility] Address [address] [place] [address] Care Team Providers Care Sales Commissions Analyst Name Role Phone Chaka Colin MD Primary Care Provider Encounter Details Date Type Department Care Team (Late st Contact Info) Description 10/23/2024 Emergency [facility] Emergency Department [address] [place] [address] Social History Tobacco Use Types Packs/Day Years Used Date Smoking Tobacco: Never Smokeless Tobacco: Never Alcohol Use Standard Drinks/Week Comments Yes 0 (1 standard drink = 0.6 oz pur e alcohol) Occasionally Sex and Gender Information Value Date Recorded Sex Assigned at Not on file 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 [place] [address] PCP - General Family Practice 08/09/24 documented as of this encounter
--- OUTSIDE RECORDS SUMMARY | 2024-10-23 17:56 | XMS_ITS | Clinical Summary ---
Author Organization [facility] Address [address] [facility] [place] [address] Care Team Providers Care Credit Risk Associate Name Role Phone Almas Stapleton MD Unavailable [phone] Alejandro Kellogg DO Primary Care Provider [phone] Source Comments [facility],non-owned Affiliates and Associated Physician Practices is amultiple site organization consisting of ambulatory clinics and hospital sitesin [place], [place], [place] and [place]. This disclosure is being madepursuant to the Care Everywhere program and may not contain all information available regarding this patient. 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 Gender Identity Not on file Sexual Orientation Not on file Last Filed Vital Signs Vital Sign Reading Time Taken Comments Blood Pressure 117/74 09/04/2012 6:06 AM POULTRY DRESSING WORKER Pulse 78 09/04/2012 6:06 AM 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 MEDICARE ESSENCE MEDICARE ESSENCE MEDICARE ESSENCE MEDICARE Advance Directives Documents on File Type Date Recorded Patient Casting And Pasting Supervisor Expl anation Adv Directive/Living Will/POA 08/16/2011 11:00 AM * FULL RESUSCITATION (Latest Code Status on File) Date Activated Date Inactivated Comments 09/01/2012 11:08 AM 09/04/2012 12:46 PM * FULL RESUSCITATION Date Activated Date Inactivated Comments 08/12/2011 1:57 PM 08/15/2011 11:27 PM Care Teams Credit Risk Associate Relationship Specialty Start Date End Date Alejandro Kellogg DO [facility] [place] [address] PCP - General 02/23/22 Almas Stapleton MD Orthopedic Surgery 09/01/11
--- OUTSIDE RECORDS SUMMARY | 2024-10-23 17:56 | XMS_ITS | Encounter Summary ---
Author Organization [facility] Address [address] [facility] [place] [address] Care Team Providers Care Dispensary Attendant Name Role Phone Almas Stapleton MD Unavailable [phone] Alejandro Kellogg DO Primary Care Provider [phone] Encounter Details Date Type Department Care Team (Late st Contact Info) Description 08/13/2024 Lab Requisition [facility] - Pathology Lab [address] [place] [address] Preston Rowland MD [address] [address] Illness, unspecified Social History Tobacco Use Types Packs/Day Years Used Date Smoking Tobacco: Former Cigarettes 1 25 0 07/11/1971 - 07/11/1996 Smokeless Tobacco: Never Alcohol Use Standard Drinks/Week Comments Yes 22.5 (1 standard drink = 0.6 oz pure alcohol) 2 drinks/day Sex and Gender Information Value Date Recorded Sex Assigned at Not on file 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 Gender Identity Not on file Sexual Orientation Not on file documented as of this encounter Plan of Treatment Pending Results Name Type Priority Associated Diagnoses Date /Time SLIDE PREP HISTOLOGY Pathology Cytology Routine Illness, unspecified 08/10/2024 documented as of this encounter Visit Diagnoses Diagnosis Illness, unspecified documented in this encounter Care Teams Dispensary Attendant Relationship Specialty Start Date End Date Alejandro Kellogg DO [facility] [place] [address] PCP - General 02/23/22 Almas Stapleton MD Orthopedic Surgery 09/01/11 documented as of this encounter
--- OUTSIDE RECORDS SUMMARY | 2024-10-23 17:56 | XMS_ITS | Continuity of Care Document ---
Author Organization [facility] Address [address] [facility] [address] [place] [address] Phone Care Team Providers Care Mortgage Servicing Specialist Name Role Phone Ambriz Katelynn BURGESS Unavailable [...] Diagnoses Date Provider Providers Copied on Encounter [facility], [address] [address], [place], [place], [id number], tel:[phone] [place] No Information 0201 3 Ambriz Katelynn. [address] [facility], [address], [place], [address], [place]. tel: [phone] [facility], [address] [address], [place], [place], [id number], tel:[phone] [place] No Information November-0 1-201 3 Ambriz Katelynn. [address] [place] [address], [address], [place], [facility], . tel: [phone] Referring Provider: Moises Phillip [address] [address], [place], [place], [facility]. tel:[phone] [place], [place] [address], [place], [place], [id number], tel:[phone] [place] No Information Oct-2 9-201 3 Ambriz Katelynn. [address] [place] [address], [address], [place], [facility], . tel: [phone] Referring Provider: Moises Phillip [address] [address], [place], [place], [facility]. tel:[phone] [place], [place] [address] [address], [place], [place], [id number], tel:[phone] [place] No Information Oct-2 4-201 3 Ambriz Katelynn. [address] [place] [address], [address], [place], [facility], . tel: [phone] Referring Provider: Moises Phillip [address] [address], [place], [place], [facility]. tel:[phone] [facility] [address] [facility] [address], [place], [id number], tel:[phone] [place] No Information Oct-2 2-201 3 Ambriz Katelynn. [address] [place] [address], [address], [place], [facility], . tel: [phone] Referring Provider: Moises Phillip [address], [facility]. tel:[phone] [facility], [address] [place], [place] [address] [address], [place], [place], [id number], tel:[phone] [place] No Information Oct-1 8-201 3 Ambriz Katelynn. [address] [place] [address] Drive, [address], [place], [place], [facility], . tel:[phone] Referring Provider: Moises Phillip [facility] [address], [place], [address]. tel:[phone] [facility], [address] [facility] [address], [place], [place], [id number], [place] tel:[phone] [place] Pain in joint involving lower leg Apr-1 6-201 3 Pb Pace. [address] [facility], [address], [place], [place], [facility], . tel:[phone] Referring Provider: Moises Phillip [facility] [address], [place], [address]. tel:[phone] Family History Family Member Type Diagnosis Age At Onset No Information Payers Payer name Insurance type Covered libertarian ID Maeve morris(s) [employer] [place] [id number] Social History Type Description Quantity Date Captured [...]
--- OUTSIDE RECORDS SUMMARY | 2024-10-23 17:56 | XMS_ITS | Encounter Summary ---
Author Organization [facility] [employer] [facility] Address [address] [place] [address] Care Team Providers Care Drying Tunnel Operator Name Role Phone Chaka Colin MD Primary Care Provider Reason for Referral * CT Scan (Urgent) - Open Specialty Diagnoses / Procedures Referred By Contac t Referred To Contact Diagnoses Cerebrovascular accident (CVA), unspecified mechanism (CMS/HCC) Procedures CT HEAD WO CONTRAST Agustin Brown MD [address] [place] [address] Phone: tel: fax: [place] [phone] Referral ID Status Reason Start Date Expiration Date V isits Requested Visits Authorized [id number] Open [facility] CTS 10/23/2024 11/23/2025 1 1 Encounter Details Date Type Department Care Team (Late st Contact Info) Description 10/22/2024 Orders Only [facility] Oncology and Hematology [address] 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 Gender Identity Not on file Sexual Orientation Not on file documented as of this encounter Plan of Treatment Upcoming Encounters Date Type Department Care Team (Late st Contact Info) Description 11/06/2024 8:30 AM CDT Office Visit [facility] Oncology and Hematology [facility] [address] [place] [address] Yolanda Snow MD [address] [place] [address] Scheduled Orders Name Type Priority Associated Diagnoses Orde r Schedule CT HEAD WO CONTRAST Imaging Stat Cerebrovascular accident (CVA), unspecified mechanism (CMS/HCC) Expected: 10/23/2024, Expires: 10/23/2025 documented as of this encounter Visit Diagnoses Diagnosis Cerebrovascular accident (CVA), unspecified mechanism (CMS/HCC)- Primary Prostate cancer (CMS/HCC) Malignant neoplasm of prostate documented in this encounter Care Teams Drying Tunnel Operator Relationship Specialty Start Date End Date Chaka Colin MD [address] [facility] [place] [address] PCP - General Family Practice 08/09/24 documented as of this encounter
--- OUTSIDE RECORDS SUMMARY | 2024-10-23 17:56 | XMS_ITS | Encounter Summary ---
Author Organization [facility] [employer] [facility] Address [address] [place] [address] Care Team Providers Care Tubing Mill Setter Name Role Phone Chaka Colin MD Primary Care Provider Reason for Referral * MRI (Urgent) - Closed Specialty Diagnoses / Procedures Referred By Contac t Referred To Contact Diagnoses Cerebrovascular accident (CVA), unspecified mechanism (CMS/HCC) Procedures MRI BRAIN W WO CONTRAST Agustin Brown MD [address] [place] [address] Phone: tel: fax: [place] [address] Referral ID Status Reason Start Date Expiration Date V isits Requested Visits Authorized [id number] Closed STL CTS 10/23/2024 01/21/2025 1 1 Encounter Details Date Type Department Care Team (Late st Contact Info) Description 10/23/2024 Orders Only [facility] Oncology and Hematology [address] [address] [address] [facility] [address] [place] [address] Agustin Brown MD [address] [place] [address] Cerebrovascular accident (CVA), unspecified mechanism (CMS/HCC) (Primary Dx) Social History Tobacco Use Types Packs/Day Years Used Date Smoking Tobacco: Never Smokeless Tobacco: Never Alcohol Use Standard Drinks/Week Comments Yes 0 (1 standard drink = 0.6 oz pur e alcohol) Occasionally Sex and Gender Information Value Date Recorded Sex Assigned at Not on file 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 Gender Identity Not on file Sexual Orientation Not on file documented as of this encounter Plan of Treatment Upcoming Encounters Date Type Department Care Team (Late st Contact Info) Description 11/06/2024 8:30 AM CDT Office Visit [facility] Oncology and Hematology - [place] [address] [place] [address] Yolanda Snow MD [address] [place] [address] Scheduled Orders Name Type Priority [...] Primary documented in this encounter Care Teams Tubing Mill Setter Relationship Specialty Start Date End Date Chaka Colin MD [address] [facility] [place] [address] PCP - General Family Practice 08/09/24 documented as of this encounter
--- OUTSIDE RECORDS SUMMARY | 2024-10-23 17:56 | XMS_ITS | Continuity of Care Document ---
Author Organization [facility] Address [address] Ce[address] [place] [phone] Phone Care Team Providers Care City Alderman Name Role Phone Wilian Martinez ODssica Unavailable [...] Copied on Encounter Office/outpa tient Visit, Est [facility], [facility], [address], [place], [place], [address], [place] tel:[phone] SEC Berny ROSALES Professional 6 month IOL check (chief complaint) PrediabetesOt her secondary cataract, bilateralPres ence of intraocular lensVitreous degeneration, right eye 4 Juan OD Radha. [address], [address], [place], [place], [address], [place]. tel:[phone] Referring Provider: Carly Guzman, [id number] [place] [address] [address], [place], [address] . tel:[phone] [facility], [address], [place], [place], [address], [place] tel:[phone] SEC Berny ROSALES Professional 2 Week CE/IOL Symfony/Tor ic PO (chief complaint) Post op visit 4 Juan Cedenossica. [address] [employer], [address], [place], [place], [address], [place]. tel:[phone] Referring Provider: Carly Guzman, [facility] [address], [place], [address] . tel:[phone] [facility], [address], [place], [place], [address], [place] tel:[phone] SEC Berny ROSALES Professional Post-Op (chief complaint) Post op visit 3 Isabel Carroll. [address], [place], [place], [address], [place]. tel:[phone] Referring Provider: Carly Guzman, [address], [place], [address] . tel:[phone] [facility], [address], [place], [place], [address], [place] tel:[phone] [facility] No Information 3 Horacio Rivera. [address], [address], [place], [place], [address], [place]. tel:[phone] Referring Provider: Carly Guzman, [address] [place] [address] [address], [place], [address] . tel:[phone] [facility], [address], [place], [place], [address], tel:[phone] SEC Berny ROSALES Professional 2 Week CE/IOL Symfony Toric PO (chief complaint) Post op visit Nov 0- 3 Isabel Carroll. [address] [place] [address] [address], [address], [place], [place], [address], [place]. tel:[phone] Referring Provider: Carly Guzman, [facility] [address], [place], [address] . tel:[phone] [facility], [address], [place], [place], [address], tel:[phone] SEC Berny ROSALES Professional Post-Op (chief complaint) Post op visit Apr- 3 Juan OD Radha. [facility] [address], [address], [place], [place], [address], [place]. tel:[phone] Referring Provider: Carly Guzman, [facility] [address], [place], [address] . tel:[phone] [facility], [address] [place] [address] [address], [place], [place], [address], [place] tel:[phone] [facility] No Information Apr- 3 Horacio Rivera. [address], [address], [place], [place], [address], [place]. tel:[phone] Referring Provider: Carly Guzman, [facility] [address], [place], [address] . tel:[phone] Office/outpa tient Visit, Est [facility], [address], [place], [place], [address], [place] tel:[phone] SEC [place] Cataract evaluation (chief complaint) Combined forms of age-related cataract, bilateralHist ory of laser assisted in situ keratomileusi sType 2 diabetes mellitus without complications Nodular corneal degeneration, left eyeGlaucoma suspect low risk, right eye Sep- 3 Horacio Rivera. [facility] [employer], [address], [place], [place], [address], . tel:[phone] Referring Provider: Carly Hall OD K, [facility] [address], [place], [address] . tel:[phone] [facility], [facility] [address], [place], [place], [address], tel:[phone] SEC [place] Professional Complete Exam (chief complaint) History of laser assisted in situ keratomileusi sType 2 diabetes mellitus without complications Combined forms of age-related cataract, bilateralMGD (meibomian gland dysfunction)B ilateral dry eyes Sep- 3 Isabel Carroll. [facility] [address], [place], [place], [address], [place]. tel:[phone] Referring Provider: Miguel Cowan, [facility] [employer] [address], [place], [address] . tel:[phone] [facility], [facility] [address], [place], [place], [address], [place] tel:[phone] SEC Yordan Adams Complete exam (chief complaint) Type 2 diabetes mellitus without complications Combined forms of age-related cataract, bilateralNodu lar corneal degeneration, bilateralLong term (current) use of oral hypoglycemic drugs 2 Horacio Rivera. [facility] [employer], [address], [place], [place], [address], [place]. tel:[phone] Referring Provider: Miguel Cowan, [facility] [employer] [address], [place], [address] . tel:[phone] Office/outpa tient Visit, [facility], [address] [place], [place] [address], [place], [place], [address], tel:[phone] SEC Carmichaels N Lindbergh Cataract Check (chief complaint) Combined forms of age-related cataract, bilateralType 2 diabetes mellitus without complications History of laser assisted in situ keratomileusi sNodular corneal degeneration, left eye 0-202 1 Horacio Rivera. [facility] [employer], [address], [place], [place], [address], [place]. tel:[phone] Referring Provider: Miguel Cowan, [facility] [employer] [address], [place], [address] . tel:[phone] Office/outpa tient Visit, [facility], [address] [place], [place] [address], [place], [place], [address], tel:[phone] SEC Carmichaelsradha Watsonh 6 mo cataract check (chief complaint) Combined forms of age-related cataract, bilateralType 2 diabetes mellitus without complications History of laser assisted in situ keratomileusi s Nov-0 9-202 0 Horacio Rivera. [facility] [employer], [address], [place], [place], [address], [place]. tel:[phone] Referring Provider: Miguel Cowan, [facility] [employer] [address], [place], [address] . tel:[phone] [facility], [address] [place], [place] [address], [place], [place], [address], [place] tel:[phone] SEC Carmichaels N Lindbergh Complete Exam (chief complaint) Type 2 diabetes mellitus without complications Combined forms of age-related cataract, bilateralHist ory of laser assisted in situ keratomileusi s Nov-0 8-201 9 Horacio Rivera. [facility] [employer], [address], [place], [place], [address], [place]. tel:[phone] Referring Provider: Miguel Cowan, [facility] [employer] [address], [place], [address] . tel:[phone] [employer] [facility], [address], [place], [place], [address], tel:[phone] SEC Carmichaels N Lindbergh Complete Exam (chief complaint) Type 2 diabetes mellitus without complications Combined forms of age-related cataract, bilateralHist ory of laser assisted in situ keratomileusi sNodular corneal degeneration, left eye 8 Horacio Miguel. [address], [address], [place], [place], [address], . tel:[phone] Referring Provider: Miguel Cowan, [address], [place], [address] . tel:[phone] [employer] [facility], [facility] [address], [place], [place], [address], tel:[phone] SEC Yordan N Lindbergh complete exam (chief complaint) Type 2 diabetes mellitus without complications MCC (current) use of oral hypoglycemic drugsCombined forms of age-related cataract, bilateral 7 Horacioavani Rivera. [facility] [employer], [address], [place], [place], [address], . tel:[phone] Referring Provider: Miguel Cowan, [address], [place], [address] . tel:[phone] [employer] [facility], [address], [place], [place], [address], tel:[phone] SEC Carmichaels N Lindbergh Blurry vision (chief complaint) No Information 5 Horacio Rivera. [address], [address], [place], [place], [address], [place]. tel:[phone] Referring Provider: Miguel Cowan, [address], [place], [address] . tel:[phone] [employer] [facility], [address], [place], [place], [address], [place] tel:[phone] No Information 5 Heydi Pan. [address], [place], [address], [place]. tel:[phone] [facility], [address], [place], [place], [address], [place] tel:[phone] SEC Yordan N Lindbergh No Information 4 Horacio Rivera. [address] [employer], [address], [place], [place], [address], [place]. tel:[phone] Referring Provider: Miguel Cowan, [address], [place], [address] . tel:[phone] Office/outpa tient Visit, [facility] [employer] [facility], [address], [place], [place], [address], [place] tel:[phone] SEC Yordan Weberbergh No Information 3 Horacio Rivera. [address] [employer], [address], [place], [place], [address], [place]. tel:[phone] Referring Provider: Miguel Cowan, [address], [place], [address] . tel:[phone] [facility] [employer] [facility], [address], [place], [place], [address], [place] [phone] SEC Carmichaels Juan Lindbergh No Information 1 Horacio Rivera. [address], [address], [place], [place], [address], [place]. tel:[phone] Referring Provider: Miguel Cowan, [address], [place], [address] . tel:[phone] [facility] [employer] [facility], [address], [place], [place], [address], tel:[phone] SEC Yordan Adams No Information 201 0 Horacio Rivera. [address], [place], [place], [address], [place]. tel:[phone] [facility], [address], [place], [place], [address], [phone] SEC Yordan Adams No Information 9[address] Horacio Rivera. [address] [employer], [address], [place], [place], [address], [place]. tel:[phone] Family History Family Member Type Diagnosis Age At Onset Mother Problem (finding) diabetes bella pizano in first degree relative Payers Payer name Insurance type Covered libertarian ID Authorkya morris(s) [employer] [id number] Social History Type Description Quantity Date Captured [...]
[2024-10-23 17:58] LABS: Hemoglobin 10.6 g/dL (14.0-18.0); Mean Corpuscular HGB Conc 30.3 g/dl (32-36); Mean Corpuscular Hemoglobin 23.3 pg (26-34); Mean Corpuscular Volume 77.1 fl (80-100); Mean Platelet Volume 8.9 fl (7.4-10.4); Platelet Count Result 310 k/mm3 (150-375); Red Blood Count 4.54 M/mm3 (4.6-6.20); Red Cell Distribution Width 19.4 % (11.5-14.5); White Blood Count 6.9 K/mm3 (4.5-10.0)
[2024-10-23 18:02] LABS: Add Urine Microscopic? YES; Appearance Urine Clear (Clear); Bacteria Urine None Seen /hpf; Bilirubin Urine Negative (Negative); Blood Urine Negative (Negative); Color Urine Yellow (Yellow); Glucose Urine UA Negative (Negative); Ketones Urine Negative (Negative); Leukocyte Esterase Ur Negative LEU/UL (Negative); Nitrate Urine Negative (Negative); Non Pathogenic Casts 0-2; Protein Urine Trace mg/dL (Negative); RBC Urine 0-2 /hpf (0-2); Specific Grav Ur 1.025 (1.001-1.035); Squamous Epithelial Cell Urine None Seen /hpf (Few); Urobilinogen Urine 0.2 mg/dL (<2.0); WBC Urine 0-5 /hpf (0-3)
[2024-10-23 18:10] LABS: Partial Thromboplastin Time 25.8 Seconds (22.3-36.8)
[2024-10-23 18:13] LABS: Band Neutrophils Percent 2 % (0-6); Lymphocytes Percent Manual 3 % (18-44); Metamyelocytes Percent 3 %; Monocytes Percent Manual 3 % (3-9); Neutrophils Absolute Manual 6.27 K/mm3 (1.3-6.7); Neutrophils Percent Manual 89 % (46-73); Total Cells Counted 100
[2024-10-23 18:14] LABS: Ovalocytes 1+; Platelet Estimate Adequate (Adequate); Schistocytes None Seen
[2024-10-23 18:16] LABS: INR 1.1; Prothrombin Time 14.3 Seconds (11.1-14.7)
[2024-10-23 18:21] LABS: Alanine Aminotransferase 34 U/L (6-50); Albumin Level 3.6 g/dL (3.5-5.1); Alkaline Phosphatase 93 U/L (38-126); Anion Gap 7 mmol/L (4-12); Aspartate Amino Transferase 22 U/L (17-59); Bilirubin,Total 0.7 mg/dL (0.2-1.3); Blood Urea Nitrogen 13 mg/dL (9-20); Calcium 8.4 mg/dL (8.4-10.2); Carbon Dioxide 28 mmol/L (22-30); Chloride 96 mmol/L (98-107); Estimated CRCL calculation 97 ml/min; Estimated Glomerular Filt Rate > 60; Glucose 153 mg/dL (65-110); Potassium 4.7 mmol/L (3.4-5.0); Sodium 131 mmol/L (137-145)
== END 2024-10-23 18:43 | disposition short-term general hospital (02) ==
PROVIDERS: Emergency Provider Emergency Medicine; PCP Family Medicine
DX: G93.89 Other specified disorders of brain (principal); C79.9 Secondary malignant neoplasm of unspecified site; C61 Malignant neoplasm of prostate; E78.5 Hyperlipidemia, unspecified; R73.03 Prediabetes; M17.9 Osteoarthritis of knee, unspecified; Z85.828 Personal history of other malignant neoplasm of skin; Z87.891 Personal history of nicotine dependence; Z98.42 Cataract extraction status, left eye; Z98.41 Cataract extraction status, right eye; Z79.69 Long term (current) use of other immunomodulators and immunosuppressants; Z79.899 Other long term (current) drug therapy
CPT/HCPCS: 36415; 80047; 80053; 81001; 85025; 85610; 85730; 96365; 96367; 96375; 96413; 99285; J1100; J1953; J2405; J2919; J9171

== ENCOUNTER 2024-11-07 08:49 | Outpatient (CLI) | payer OTHER, SELFPAY ==
--- OUTSIDE RECORDS SUMMARY | 2024-11-07 09:09 | XMS_ITS | Clinical Summary ---
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
--- OUTSIDE RECORDS SUMMARY | 2024-11-07 09:09 | XMS_ITS | Encounter Summary ---
Author Organization [facility] Address [address] [facility] [place] [address] Care Team Providers Care Laboratory Secretary Name Role Phone Almas Stapleton MD Unavailable [phone] Alejandro Kellogg DO Primary Care Provider [phone] Encounter Details Date Type Department Care Team (Late st Contact Info) Description 08/16/2024 Lab Requisition [facility] - Pathology Lab [address] [place] [address] Preston Rowland MD [address] [address] Illness, unspecified Social History Tobacco Use Types Packs/Day Years Used Date Smoking Tobacco: Former Cigarettes 1 25 0 07/11/1971 - 07/11/1996 Smokeless Tobacco: Never Alcohol Use Standard Drinks/Week Comments Yes 22.5 (1 standard drink = 0.6 oz pure alcohol) 2 drinks/day Sex and Gender Information Value Date Recorded Sex Assigned at Not on file Legal Sex Male 12:[address] MAGISTRATE Gender Identity Not on file Sexual Orientation Not on file documented as of this encounter Plan of Treatment Pending Results Name Type Priority Associated Diagnoses Date /Time SLIDE PREP HISTOLOGY Pathology Cytology Routine Illness, unspecified 08/10/2024 documented as of this encounter Visit Diagnoses Diagnosis Illness, unspecified documented in this encounter Care Teams Laboratory Secretary Relationship Specialty Start Date End Date Alejandro Kellogg DO [facility] [place] [address] PCP - General 02/23/22 Almas Stapleton MD Orthopedic Surgery 09/01/11 documented as of this encounter
--- OUTSIDE RECORDS SUMMARY | 2024-11-07 09:09 | XMS_ITS | Clinical Summary ---
Author Organization [facility] Address [address] [place] [address] Care Team Providers Care Chute Puller Name Role Phone Almas Stapleton MD Unavailable [phone] Alejandro Kellogg DO Primary Care Provider [phone] Source Comments [facility],non-owned Affiliates and Associated Physician Practices is amultiple site organization consisting of ambulatory clinics and hospital sitesin [place], [place], [place] and [place]. This disclosure is being madepursuant to the Care Everywhere program and may not contain all information available regarding this patient. 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 Gender Identity Not on file Sexual Orientation Not on file Last Filed Vital Signs Vital Sign Reading Time Taken Comments Blood Pressure 117/74 09/04/2012 6:06 AM AIRPORT GUIDE Pulse 78 09/04/2012 6:06 AM AIRPORT GUIDE Temperature 36.9 C (98.4 F) 09/04/2012 6:06 AM AIRPORT GUIDE Respiratory Rate 18 09/04/2012 6:06 AM AIRPORT GUIDE Oxygen Saturation 98% 09/04/2012 6:06 AM AIRPORT GUIDE Inhaled Oxygen Concentration - - Weight 88.4 kg (194 lb 12.8 oz) 09/01/2012 7:04 AM AIRPORT GUIDE Height 175.3 cm (5' 9 ) 09/01/2012 7:04 AM AIRPORT GUIDE Body Mass Index 28.77 09/01/2012 7:04 AM AIRPORT GUIDE Plan of Treatment Health Maintenance Due Date [...] to complete this topic [place] [address] [facility] MEDICARE ESSENCE MEDICARE ESSENCE MEDICARE ESSENCE MEDICARE Advance Directives Documents on File Type Date Recorded Patient Pattern Grader Cutter Expl anation Adv Directive/Living Will/POA 08/16/2011 11:00 AM * FULL RESUSCITATION (Latest Code Status on File) Date Activated Date Inactivated Comments 09/01/2012 11:08 AM 09/04/2012 12:46 PM * FULL RESUSCITATION Date Activated Date Inactivated Comments 08/12/2011 1:57 PM 08/15/2011 11:27 PM Care Teams Chute Puller Relationship Specialty Start Date End Date Alejandro Kellogg DO [facility] [place] [phone] PCP - General 02/23/22 Almas Stapleton MD Orthopedic Surgery 09/01/11
--- OUTSIDE RECORDS SUMMARY | 2024-11-07 09:09 | XMS_ITS ---
Author Organization [facility] Address [address] 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 Past Treatment and Therapy Plans No past plan information found. Lifetime Dose Tracking * Chemical Lifetime Dose Automatic Entry Manual Entr y Effective Dose 13.62 mSv 13.62 mSv 0 mSv Total DLP 1,745.58 DLP 1,745.58 DLP 0 DLP CTDIvol Max 61 mGy 61 mGy 0 mGy Resolved Problems Problem Noted Date Diagnosed Date Resolved Date Generalized muscle weakness 10/23/2024 10/24/2024
--- OUTSIDE RECORDS SUMMARY | 2024-11-07 09:09 | XMS_ITS | Referral Summary ---
Author Organization 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
--- OUTSIDE RECORDS SUMMARY | 2024-11-07 09:09 | XMS_ITS | Encounter Summary ---
Author Organization [facility] Address [address] [facility] [place] [address] Care Team Providers Care Building Construction Professor Name Role Phone Almas Stapleton MD Unavailable [phone] Alejandro Kellogg DO Primary Care Provider [phone] Encounter Details Date Type Department Care Team (Late st Contact Info) Description 08/13/2024 Lab Requisition [facility] - Pathology Lab [address] [place] [address] Preston Rowland MD [address] [address] Illness, unspecified Social History Tobacco Use Types Packs/Day Years Used Date Smoking Tobacco: Former Cigarettes 1 25 0 07/11/1971 - 07/11/1996 Smokeless Tobacco: Never Alcohol Use Standard Drinks/Week Comments Yes 22.5 (1 standard drink = 0.6 oz pure alcohol) 2 drinks/day Sex and Gender Information Value Date Recorded Sex Assigned at Not on file 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 Gender Identity Not on file Sexual Orientation Not on file documented as of this encounter Plan of Treatment Pending Results Name Type Priority Associated Diagnoses Date /Time SLIDE PREP HISTOLOGY Pathology Cytology Routine Illness, unspecified 08/10/2024 documented as of this encounter Visit Diagnoses Diagnosis Illness, unspecified documented in this encounter Care Teams Building Construction Professor Relationship Specialty Start Date End Date Alejandro Kellogg DO [facility] [place] [id number] PCP - General 02/23/22 Almas Stapleton MD Orthopedic Surgery 09/01/11 documented as of this encounter
--- OUTSIDE RECORDS SUMMARY | 2024-11-07 09:09 | XMS_ITS | Encounter Summary ---
Author Organization [facility] Address [address] [place] [address] Care Team Providers Care Deburr Technician Name Role Phone Chaka Colin MD Primary Care Provider Encounter Details Date Type Department Care Team (Late st Contact Info) Description 11/05/2024 Orders Only [facility] Oncology and Hematology - [place] [address] [facility] [address] [place] [address] Agustin Brown MD [address] [facility] [address] [place] [address] Prostate cancer (CMS/HCC) Social History Tobacco Use Types Packs/Day Years Used Date Smoking Tobacco: Never Smokeless Tobacco: Never Alcohol Use Standard Drinks/Week Comments Yes 0 (1 standard drink = 0.6 oz pur e alcohol) Occasionally Feeling Safe Answer Date Recorded Are you in a relationship wi th someone who hurts you emotionally and/or physically? No 10/26/2024 Food Insecurity Answer Date Recorded Patient needs follow up regardin 10/31/2024 Transportation Needs Answer Date Record ed Patient needs follow up regardin 10/31/2024 Housing Stability Answer Date Recorded Social/Environmental Concerns No concerns Utility Needs Answer Date Recorded Patient needs follow up regardin 10/31/2024 Sex and Gender Information Value Date Recorded Sex Assigned at Not on file Legal Sex Male 4:26 PM [employer] Gender Identity Not on file Sexual Orientation Not on file documented as of this encounter Plan of Treatment Upcoming Encounters Date Type Department Care Team (Late st Contact Info) Description 11/07/2024 9:15 AM CDT Office Visit [facility] Oncology and Hematology - [place] [address] [facility] [address] [place] [address] Agustin Brown MD [address] [facility] [address] [place] [address] 11/07/2024 2:30 PM CDT Office Visit [facility] Neurosurgery - [facility] [address] [facility] [address] [place] [address] Dianna Reid PA [address] [facility] [address] [place] [address] documented as of this encounter Visit Diagnoses Diagnosis Prostate cancer (CMS/HCC) Malignant neoplasm of prostate documented in this encounter Care Teams Deburr Technician Relationship Specialty Start Date End Date Chaka Colin MD [address] [facility] [place] [address] PCP - General Family Practice 08/09/24 documented as of this encounter
--- OUTSIDE RECORDS SUMMARY | 2024-11-07 09:09 | XMS_ITS | Encounter Summary ---
Author Organization [facility] Address [address] [place] [address] Care Team Providers Care Steward/Stewardess Banquet Name Role Phone Chaka Colin MD Primary Care Provider Reason for Referral * MRI (Routine) - Open Specialty Diagnoses / Procedures Referred By Contac t Referred To Contact Diagnoses 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) Procedures MRI THERAPY PLANNING BRAIN W CONTRAST Jono Edouard MD [address] [address] Phone: tel: fax: Referral ID Status Reason Start Date Expiration Date Visits Re quested Visits Authorized [id number] Open 11/06/2024 12/07/2025 1 1 Encounter Details Date Type Department Care Team (Late st Contact Info) Description 11/06/2024 Orders Only [facility] Radiation Therapy [address] [place] [address] Jono Edouard MD [address] [address] 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) Social History Tobacco Use [...] on file 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 [address] [place] [address] Agustin Brown MD [address] [facility] [address] [place] [address] 11/07/2024 2:30 PM CDT Office Visit [facility]3] Neurosurgery - [facility] [address] [facility] [address] [place] [address] Dianna Reid PA [address] [facility] [address] [place] [address] Scheduled Orders Name Type Priority Associated Diagnoses Orde r Schedule MRI THERAPY PLANNING BRAIN W CONTRAST Imaging Routine 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) 1 Occurrences starting 11/06/2024 until 11/06/2025 documented as of this encounter Visit Diagnoses Diagnosis 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)- Primary Secondary malignant neoplasm of brain and spinal cord documented in this encounter Care Teams Steward/Stewardess Banquet Relationship Specialty Start Date End Date Chaka Colin MD [address] [facility] [place] [address] PCP - General Family Practice 08/09/24 documented as of this encounter
--- OUTSIDE RECORDS SUMMARY | 2024-11-07 09:10 | XMS_ITS | Clinical Summary ---
Author Organization [facility] Address [address] [place] [address] Care Team Providers Care Technical Laboratory Asst Name Role Phone Chaka Colin MD Primary Care Provider Allergies No known active allergies Medications sildenafil citrate (SILDENAFIL, PULM.HYPERTEN SHIVAM, ORAL) Take by mouth daily. Active predniSONE (DELTASONE) 5 mg tablet Take 1 Tablet (5 mg) by mouth 2 times daily with meals. 60 Tablet 4 08/17/19 25 Active Additional Information Patient taking differently:5 mg Oral TWO TIMES DAILY WITH MEALS,Thus-Sun, Reported on 10/27/2024 ondansetron (ZOFRAN ODT) 8 mg Tablet, Rapid Dissolve Dissolve 1 tablet on top of tongue then swallow with saliva every 8 hours as needed for nausea or vomiting 30 Tablet 1 09/19/19 25 Active lidocaine-armin locaine (EMLA) 2.5-2.5 % Cream Apply a quarter amount to port site 30 minutes before access. 30 Gram 1 09/20/19 25 Active abiraterone (ZYTIGA) 250 mg tablet Take 2 Tablets (500 mg) by mouth daily before breakfast. 60 Tablet 4 10/17/19 25 Active sertraline (Zoloft) 50 mg tablet Take 1 Tablet (50 mg) by mouth daily. 60 Tablet 2 10/17/19 25 Active omeprazole (PriLOSEC) 20 mg Capsule, Delayed Release(E.C.) Take 20 mg by mouth daily. Active ferrous sulfate 325 mg (65 mg iron) tablet Take 325 mg by mouth daily. Active simvastatin (ZOCOR) 5 mg tablet Take 5 mg by mouth daily with supper. Active cyanocobalami n (VITAMIN B-12) 250 mcg Tablet Take 250 mcg by mouth daily. Active ergocalcifero l (VITAMIN D2) 50,000 unit capsule Take 50,000 Units by mouth every 7 days. Tuesday Active levETIRAcetam (Keppra) 500 mg tablet Take 1 Tablet (500 mg) by mouth 2 times daily. 30 Tablet 5 4:24 PM CDT 10/29/19 25 Active Sodium Chloride 1,000 mg Tablet, Soluble Take 1 Tablet (1,000 mg) by mouth every 8 hours. 90 Tablet 5 4:24 PM CDT 10/31/19 25 Active mirtazapine (REMERON) 7.5 mg tablet Take 1 Tablet (7.5 mg) by mouth daily at bedtime. 30 Tablet 1 5 4:24 PM CDT 10/31/19 25 Active abiraterone (ZYTIGA) 250 mg tablet Take 4 Tablets (1,000 mg) by mouth daily before breakfast. 120 Tablet 4 5 10:01 AM CDT 08/17/19 25 025 Discontinued(Re order) dexAMETHasone (DECADRON) 4 mg tablet Take 2 tablets by mouth BID day before, day of, day after treatment with Docetaxel. 12 Tablet 5 09/19/19 25 025 Discontinued dexAMETHasone (DECADRON) 2 mg tablet Take 1 Tablet (2 mg) by mouth 3 times daily for 2 days, THEN 1 Tablet (2 mg) 2 times daily for 2 days, THEN 1 Tablet (2 mg) daily for 2 days. 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 10/23/2024 Type 2 diabetes mellitus with hyperglycemia 10/09 Resolved Problems Problem Noted Date Diagnosed Date Resolved Date Generalized muscle weakness 10/23/2024 10/24/2024 Encounters Date Type Department Care Team Description 11/06/2024 Orders Only Laci Edouard [facility] Radiation Therapy [address] [place] [id number] Jono Edouard MD 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) 11/05/2024 Orders Only [facility] Oncology and Hematology - [place] [address] [place] [address] Agustin Brown MD Prostate cancer (CMS/HCC) 11/01/2024 Abstract [facility] Neurosurgery - Medical [place] [address] [facility] [address] [place] [address] Ad Chang MD 11/01/2024 Telephone [facility] Neurosurgery - Medical [place] [address] [facility] [address] [place] [address] Provider, Abstract s/p crainiotomy 10/31/2024 3:28 PM CDT - 10/31/2024 11:59 PM CDT Hospital Encounter [facility] Imaging Services [facility] [address] [place] [address] Saima Owens, PA Discharge Disposition: Home or Self Care 10/31/2024 Telephone [facility] Oncology and Hematology [place] [place] [address] [facility] [address] [place] [address] Miguelito Reinoso MD Information 10/31/2024 Telephone [facility] Neurosurgery - Medical [place] [address] [facility] [address] [place] [address] Ad Chang MD question 10/30/2024 External Device Data STL ABSTRACTION Provider, Abstract 10/30/2024 External Device Data [facility] ABSTRACTION Provider, Abstract 10/30/2024 External Device Data [facility] ABSTRACTION Provider, Abstract 10/29/2024 Orders Only [facility] Oncology and Hematology [facility] [address] [place] [address] Agustin Brown MD 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); Prostate cancer (CMS/HCC) 10/28/2024 Refill [facility] Medical Telemetry [address] [place] [address] Jg Jean-Baptiste PA 10/26/2024 7:00 AM CDT Anesthesia Event [facility] Operating Room [address] [place] [address] Joseph Quijano MD Berner, Christopher D, PA-C 10/26/2024 6:45 AM CDT - 10/26/2024 11:00 AM CDT Surgery [facility] Operating Room [address] [place] [address] Ad Chang MD CRANIOTOMY STEREOTACTIC 10/24/2024 Abstract [facility] Neurosurgery - [facility] [address] [facility] [address] [place] [address] Ad Chang MD 10/24/2024 Orders Only [facility] Neurosurgery - [facility] [address] [facility] [address] [place] [address] Ad Chang MD 10/24/2024 Orders Only [facility] Oncology and Hematology - [place] [address] [place] [address] Agustin Brown MD 10/23/2024 7:35 PM CDT - 10/30/2024 4:16 PM CDT Hospital Encounter [facility] Neurosurgery [address] [place] [address] Zoya Vargas MD Long, MD Iza Pack, MD Chery Tafoya Nisha, MD Kenguva, Venkata, MD Sermadevi, MD Malinda Pederson, Nicho, MD NuspUyen fierro DO Austin, Karen, MD 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) Discharge Disposition: Home or Self Care 10/23/2024 Travel 10/23/2024 Orders Only [facility] Oncology and Hematology - [place] [address] [place] [address] Agustin Brown MD Cerebrovascular accident (CVA), unspecified mechanism (CMS/HCC) (Primary Dx) 10/22/2024 Orders Only [facility] Oncology and Hematology - [place] [address] [place] [address] Agustin Brown MD Cerebrovascular accident (CVA), unspecified mechanism (CMS/HCC) (Primary Dx); Prostate cancer (CMS/HCC) 10/17/2024 Orders Only [facility] Oncology and Hematology - [place] [address] [place] [address] Agustin Brown MD 10/16/2024 9:45 AM CDT Office Visit [facility] Oncology and Hematology - [place] [address] [place] [address] Agustin Brown MD Prostate cancer (CMS/HCC) (Primary Dx) 10/16/2024 Orders Only [facility] Oncology and Hematology - [place] [address] [place] [address] Agustin Brown MD 10/15/2024 Refill [facility] Oncology and Hematology - [place] [address] [place] [phone] Agustin Brown MD 10/15/2024 Orders Only [facility] Oncology and Hematology - [place] [address] Agustin Brown MD Prostate cancer (CMS/HCC) 10/09/2024 9:30 AM CDT Office Visit [facility] Oncology and Hematology - [place] [address] [place] [address] Agustin Brown MD Prostate cancer ([facility]/HCC) (Primary Dx) 10/09/2024 Orders Only [facility] Oncology and Hematology - [place] [address] [place] [address] Agustin Brown MD Prostate cancer ([facility]/HCC) (Primary Dx) 10/09/2024 Telephone [facility] Oncology and Hematology - [place] [address] [place] [address] Agustin Brown MD Fatigue 10/01/2024 Orders Only [facility] Oncology and Hematology - [place] [address] [place] [address] Agustin Brown MD Prostate cancer ([facility]/HCC) 09/27/2024 Orders Only [facility] Oncology and Hematology - [place] [address] [place] [address] Agustin Brown MD 09/26/2024 External Device Data STL ABSTRACTION Provider, Abstract 09/25/2024 Specialty Pharmacy [facility] [address] [place] [phone] Lina Quintanilla, PHARMACIST Specialty [facility]acy Clinical Assessment 09/25/2024 Specialty Pharmacy [facility] [address] [place] [phone] Michelle Ruiz, PHARMACIST [facility] Refill Coordination 09/20/2024 Abstract [facility] Oncology and Hematology - [place] [address] [place] [address] Agustin Brown MD 09/19/2024 Refill [facility] Oncology and Hematology - [place] [address] [place] [address] Agustin Brown MD 09/18/2024 Orders Only [facility] Oncology and Hematology - [place] [address] [place] [address] Agustin Brown MD Prostate cancer (CMS/HCC) (Primary Dx) 09/18/2024 Refill [facility] Oncology and Hematology [place] [address] [place] [address] Agustin Brown MD 09/18/2024 Refill [facility] Oncology and Hematology - [place] [address] [place] [address] Agustin Brown MD 09/15/2024 External Device Data ST[facility] ABSTRACTION Provider, Abstract 09/14/2024 External Device Data [facility] ABSTRACTION Provider, Abstract 08/28/2024 External Device Data [facility] ABSTRACTION Provider, Abstract 08/17/2024 9:00 AM NEWSPAPER PUBLISHER Office Visit [facility] Oncology and Hematology - [place] [address] [place] [address] Agustin Brown MD Prostate cancer (CMS/HCC) (Primary Dx) 08/17/2024 Specialty Pharmacy [facility] [address] [place] [phone] Abbie Garcia, PHARMACIST 08/17/2024 Orders Only [facility] Oncology and Hematology - [place] [address] [place] [address] Agustin Brown MD 08/14/2024 External Device Data STL ABSTRACTION Provider, Abstract 08/14/2024 External Device Data [facility] ABSTRACTION Provider, Abstract 08/14/2024 External Device Data [facility] ABSTRACTION Provider, Abstract from Last 3 Months Family History Medical [...] on file Legal Sex Male 4:26 PM NEWSPAPER 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 Gender Identity Not on file Sexual Orientation Not on file Last Filed Vital Signs Vital Sign Reading Time Taken Comments Blood Pressure 147/73 10/30/2024 12:36 PM CDT Pulse 73 10/30/2024 12:36 PM CDT Temperature 36.7 C (98.1 F) 10/30/2024 12:36 PM CDT Respiratory Rate 16 10/30/2024 12:3 6 PM CDT Oxygen Saturation 94% 10/30/2024 12: 36 PM CDT Inhaled Oxygen Concentration - - Weight 84.7 kg (186 lb 11.2 oz) 10/25/2024 9:00 AM CDT Height 175.3 cm (5' 9 ) 10/24/2024 11:4 8 AM CDT Body Mass Index 27.57 10/24/2024 11:48 AM CDT Plan of Treatment Upcoming Encounters Date Type Department Care Team (Late st Contact Info) Description 11/07/2024 9:15 AM CDT Office Visit [facility] Oncology and Hematology - [place] [address] [facility] [address] [place] [address] Agustin Brown MD [address] [facility] [address] [place] [address] 11/07/2024 2:30 PM CDT Office Visit [facility] Neurosurgery - Medical [place] [address] [facility] [address] [place] [address] Dianna Reid PA [address] [place] [address] Health Maintenance Due Date Last Done Comments DIABETES ANNUAL FOOT EXAM 11/19/1961 DIABETES ANNUAL RETINAL EXAM 11/19/1961 DIABETES MICROALBUMIN ANNUAL SCREEN 11/19/1961 LDL CHOLESTEROL ANNUAL 11/19/1961 DTAP/TDAP/TD VACCINES (1 - Tdap) 11/19/1962 ZOSTER VACCINE (1 of 2) 11/19/1962 PNEUMOCOCCAL VACCINE 50+ YEARS (2 of 2 - PCV) 09/04/19 14 09/04/2012 RSV VACCINE (60+ or ) (1 - 1-dose 75+ series) 11/19/2018 INFLUENZA VACCINE (#1) 2024 Medicare Advantage ([place]) Prev entative Visit/Annual Wellness Visit 07/11/2024 DIABETES HBA1C Q 6 MONTHS 04/28/2025 10/27/2024 Medical Devices Implanted Type Area Papier Mache Molder Device Identifier Shelf Expiration Date Model / Serial / Lot Duragen + 3x3in Dp-1033 - [id number] Implanted:Qty: 1 on 10/26/2024 by Ad Chang MD at [facility] Graft Right: Cranial [employer] 04/09/2027 [id number] / / [id number] Agent Hemostat Surgicel 4x8in 1952s - [id number] Implanted:Qty: 1 on 10/26/2024 by Ad Chang MD at [facility] Hemostatic Right: Cranial J[employer]J- [employer] [id number] 05/10/2029 1952S / / [id number] Hemostatic Surgicel 1x2in 1961 - [id number] Implanted:Qty: 1 on 10/26/2024 by Ad Chang MD at [facility] Hemostatic Right: Cranial J&J- [employer] [id number] 03/10/2027 1961 / / [id number] Hemostatic Surgiflo 8ml W/ Thrombin 2994 - [id number] Implanted:Qty: 1 on 10/26/2024 by Ad Chang MD at [facility] Hemostatic Right: Cranial J&J- [employer] [id number] 01/07/2026 2994 / / [id number] Plate Matrxneuro Frame 04.502.065 - [id number] Implanted:Qty: 2 on 10/26/2024 by Ad Chang MD at [facility] Plate Right: Cranial J&J- DEPUY SYNTHES 502.0 65 / / Plate Matrxneuro Bur Hl Cvr 502.021 - [id number] Implanted:Qty: 2 on 10/26/2024 by Ad Chang MD at [facility] Plate Right: Cranial J&J- DEPUY SYNTHES 502.0 21 / / Description:[id number] Screw Matrixneuro Sd .104.01 - [id number] Implanted:Qty: 16 on 10/26/2024 by Ad Chang MD at [facility] Screw Right: Cranial J&J- DEPUY SYNTHES .503.1 04.01 / / Screw Matrixneuro Sd 503.105.01 - [id number] Implanted:Qty: 1 on 10/26/2024 by Ad Chang MD at [facility] Screw Right: Cranial J&J- DEPUY SYNTHES 503.1 05.01 / / Description:REQ [id number] Procedures Procedure Name Priority Date/Time Associated Diagnosis Comments TELEMETRY REPORT 11/01/2024 1:[address] HEAD WO CONTRAST Stat 10/31/2024 3 :38 PM CDT Postoperative pain POC GLUCOSE Routine 10/30/2024 11:38 AM CDT [facility] XT NORMAL BLOOD Routine 8:43 AM CDT 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) POC GLUCOSE Routine 10/30/2024 7:22 AM CDT BASIC METABOLIC PANEL Routine 10/30/2024 5:15 AM CDT POC GLUCOSE Routine 10/29/2024 9:22 PM CDT POC GLUCOSE Routine 10/29/2024 4:24 PM CDT POC GLUCOSE Routine 10/29/2024 12:36 PM CDT POC GLUCOSE Routine 10/29/2024 9:17 AM CDT PSA Routine 10/29/2024 7:03 AM CDT CBC WITHOUT DIFFERENTIAL Routine 10/29/2024 7:03 AM CDT BASIC METABOLIC PANEL Routine 10/29/2024 7:03 AM CDT POC GLUCOSE Routine 10/28/2024 10:28 PM CDT BASIC METABOLIC PANEL Routine 10/28/2024 3:39 PM CDT POC GLUCOSE Routine 10/28/2024 10:11 AM CDT POC GLUCOSE Routine 10/27/2024 9:50 PM CDT MRI BRAIN W WO CONTRAST Pending Discharge 10/27/2024 9:25 PM CDT POC GLUCOSE Routine 10/27/2024 5:17 PM CDT POC GLUCOSE Routine 10/27/2024 12:25 PM CDT POC GLUCOSE Routine 10/27/2024 7:35 AM CDT HEMOGLOBIN A1C Routine 10/27/2024 3:39 AM CDT DIFFERENTIAL, MANUAL Routine 10/27/2024 3:39 AM CDT BASIC METABOLIC PANEL Routine 10/27/2024 3:39 AM CDT CBC WITH DIFFERENTIAL Routine 10/27/2024 3:39 AM CDT PHOSPHORUS Routine 10/27/2024 3:39 AM CDT MAGNESIUM LEVEL Routine 10/27/2024 3:39 AM CDT POC GLUCOSE Routine 10/27/2024 3:23 AM CDT POC GLUCOSE Routine 10/26/2024 11:46 PM CDT POC GLUCOSE Routine 10/26/2024 7:37 PM CDT POC GLUCOSE Routine 10/26/2024 3:48 PM CDT BASIC METABOLIC PANEL Stat 10/26/2024 3:10 PM CDT OSMOLALITY Routine 10/26/2024 3:10 PM CDT SODIUM, RANDOM URINE Routine 10/26/2024 3:05 PM CDT OSMOLALITY, URINE Routine 10/26/2024 3:0 5 PM CDT POC GLUCOSE Routine 10/26/2024 1:10 PM CDT POC GLUCOSE Routine 10/26/2024 9:24 AM CDT PATHOLOGY Pathology 10/26/2024 8:36 AM CDT 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) POC LACTIC ACID Routine 10/26/2024 7:52 AM CDT BLOOD GAS,(INCL. H+H, LYTES, GLUC) Routine 10/26/2024 7:52 AM CDT [place] ANES INSERT CATH, ART, PERCUT, SHORTTERM Routine 10/26/2024 7:35 AM CDT IL ANES INSERT ENDOTRACHEAL AIRWAY Routine 10/26/2024 7:12 AM CDT POC GLUCOSE Routine 10/26/2024 6:51 AM CDT IL CRNEC TREPH BONE FLAP CRNOT EXC BRAIN TUMOR STTL 10/26/2024 6:45 AM CDT 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) Case Notes Stereotactic Right Frontal Craniotomy for tumor Resection Stealth Mizuho Table In-House Special Needs Stereotactic Right Frontal Craniotomy for tumor Resection Stealth Mizuho Table In-House COMPREHENSIVE METABOLIC PANEL Stat 10/26/2024 6:13 AM CDT CBC WITH DIFFERENTIAL Stat 10/26/2024 6:13 AM CDT POC GLUCOSE Routine 10/26/2024 4:57 AM CDT POC GLUCOSE Routine 10/25/2024 11:49 PM CDT POC GLUCOSE Routine 10/25/2024 8:02 PM CDT MRI BRAIN W WO CONTRAST Routine 10/25/2024 6:37 PM CDT POC GLUCOSE Routine 10/25/2024 3:38 PM CDT VERIFICATION BLOOD GROUP Stat 10/25/2024 2:44 PM CDT Encounter for blood typing TYPE AND SCREEN Routine 10/25/2024 1:01 PM CDT PTT Routine 10/25/2024 1:01 PM CDT PROTIME-INR Routine 10/25/2024 1:01 PM CDT POC GLUCOSE Routine 10/25/2024 11:47 AM CDT EKG 12-LEAD Stat 10/25/2024 9:41 AM CDT POC GLUCOSE Routine 10/25/2024 8:38 AM CDT POC GLUCOSE Routine 10/25/2024 5:52 AM CDT POC GLUCOSE Routine 10/24/2024 11:[address] CHEST ABDOMEN PELVIS W CONT Routine 10/24/2024 11:43 PM CDT POC GLUCOSE Routine 10/24/2024 7:36 PM CDT POC GLUCOSE Routine 10/24/2024 4:05 PM CDT URINALYSIS W/REFLEX MICROSCOPIC Routine 10/24/2024 1:18 PM CDT POC GLUCOSE Routine 10/24/2024 11:57 AM CDT POC GLUCOSE Routine 10/24/2024 8:16 AM CDT DIFFERENTIAL, MANUAL Stat 10/24/2024 6:15 AM CDT VITAMIN B12 AND FOLATE Routine 6:15 AM CDT COMPREHENSIVE METABOLIC PANEL Stat 10/24/2024 6:15 AM CDT CBC WITH DIFFERENTIAL Stat 10/24/2024 6:15 AM CDT POC GLUCOSE Routine 10/24/2024 6:08 AM CDT POC GLUCOSE Stat 10/23/2024 11:14 PM CDT IRON, TIBC, AND PERCENT SATURATION Routine 10/23/2024 8:41 PM CDT FERRITIN Routine 10/23/2024 8:41 PM CDT DIFFERENTIAL, MANUAL Stat 10/23/2024 8:41 PM CDT COMPREHENSIVE METABOLIC PANEL Stat 10/23/2024 8:41 PM CDT CBC WITH DIFFERENTIAL Stat 10/23/2024 8:41 PM CDT CRITICAL CARE Routine 10/23/2024 7:[address] HEAD W CONTRAST Routine 10/23/2024 4: 18 PM CDT BASIC METABOLIC PANEL Routine 10/23/2024 3:59 PM CDT MRI BRAIN W WO CONTRAST Routine 10/23/2024 7:48 AM CDT CBC WITH AUTODIFFERENTIAL Routine 10/16/2024 12:44 PM CDT BASIC METABOLIC PANEL Routine 10/16/2024 12:42 PM CDT COMPREHENSIVE METABOLIC PANEL Routine 10/16/2024 8:15 AM CDT BASIC METABOLIC PANEL Routine 10/09/2024 1:10 PM CDT COMPREHENSIVE METABOLIC PANEL Routine 10/09/2024 1:08 PM CDT BASIC METABOLIC PANEL Routine 09/25/2024 8:05 AM CDT BASIC METABOLIC PANEL Routine 08/17/2024 8:58 AM NEWSPAPER PUBLISHER from Last 3 Months Results * TELEMETRY REPORT (11/01/2024 1:26 PM CDT) us Provider Scanning ECG ORDERABLES Final Result * CT HEAD WO CONTRAST (10/31/2024 3:38 PM CDT) Anatomical Region Laterality Modality Head Computed Tomogra phy 10/31/2024 3:38 PM CDT Impressions 10/31/2024 3:49 PM CDT IMPRESSION: 1. Mild right cerebral subdural hematoma associated with the craniotomy, likely postoperative. DICTATION LOCATION: Location [address] [place] [address] A [place] Priority Outpt message has been communicated to SAIMA OWENS via the [employer] Critical Results application on 10/31/2024 3:46 PM, Message ID [id number]. Narrative 10/31/2024 3:49 PM CDT Examination: Head CT without contrast. HISTORY: Follow-up post craniotomy. TECHNIQUE: Computed tomography of the head was performed without intravenous contrast according to standard protocol. The examination was performed with the adjustment of mA according to the patient size and/or the use of Iterative Reconstruction Technique. COMPARISON: 10/23/2024 FINDINGS: There are postoperative changes of left frontoparietal craniotomy. Encephalomalacia in the right frontoparietal region is redemonstrated. Cystic mass is also unchanged in the right frontal lobe. There is no midline shift. The ventricles are normal in size and morphology. The basilar cisterns are patent. Mild subdural pneumocephalus and hematoma are present measuring 4 mm. This is likely postoperative. Bilateral lens replacements are noted. The paranasal sinuses and mastoids are aerated with small mucous retention cysts in the maxillary sinuses. Saima GALAVIZ CT ORDERABLES Edited Result - Final * (ABNORMAL) POC GLUCOSE (10/30/2024 11:38 AM CDT) Only the most recent of33 resultswithin the time period is included. GLUCOSE POC 137(H) 74 - 99 mg/dL 10/30/2024 11:38 AM CDT [facility] SPECIMEN SOURCE, GLUCOSE POC Whole Blood 10/30/2024 11:38 AM CDT [facility] COMMENT, GLU POC Notified RN/MD 10/30/2024 11:38 AM CDT [facility] Blood, whole 10/30/2024 11:3 8 AM CDT 10/30/2024 11:45 AM CDT Denice Pacheco MD POINT OF CARE TESTING Final Resu lt [facility]# [id number] [address] [facility] [place] [id number] * [facility] NORMAL BLOOD (10/30/2024 8:43 AM CDT) [facility] 10/30/2024 11:01 PM CDT [facility] Comment:See NGS Report for R esults. Blood specimen (specimen) 10/30/2024 8:43 AM CDT 10/30/2024 8:45 AM CDT Miguelito Reinoso MD MOLECULAR ORDERABLES Final Result [facility] [address] [facility], [address] [place] [address], [facility] [address] [facility], [address] [place] [address] * (ABNORMAL) BASIC METABOLIC PANEL (10/30/2024 5:15 AM CDT) Only the most recent of10 resultswithin the time period is included. SODIUM 138 136 - 145 mmol/L 10/30/2024 6:35 AM T [facility] - . [facility] POTASSIUM 4.5 3.5 - 5.0 mmol/L 10/30/2024 6:35 AM [facility] - [facility] CHLORIDE 103 98 - 107 mmol/L 10/30/2024 6:35 AM T [facility] - [facility] 27 22 - 29 mmol/L 10/30/2024 6:[address] [facility] - . [facility] CALCIUM 8.2(L) 8.6 - 10.2 mg/dL 10/30/2024 6:35 AM [facility]. [facility] BUN 18 8 - 23 mg/dL 10/30/2024 6:[address] [address] [facility] CREATININE 0.45(L) 0.67 - 1.17 mg/dL 10/30/2024 6:[address] [address] [facility] Comment:The GFR result is no t clinically significant on patients <18 or >70 years of age. GLUCOSE 122(H) 74 - 99 mg/dL 10/30/2024 6:35 AM [facility] GFR >60 mL/min/1.7 3 sq meter 10/30/2024 6:35 AM [facility] Comment:eGFR calculated with 2020 CKD-EPI equation. Vegetarian diet, extremely high or low muscle mass, and may affect results. Cystatin C with Glomerular Filtration Rate is a suitable alternative for these patients. ANION GAP 8 8 - 16 mmol/L 10/30/2024 6:35 AM [facility] SERVICES [facility] Blood Venipuncture / Unknown 10/30/2024 5:15 AM CDT 10/30/2024 5:29 AM CDT us Nicho Aruchamy MD CHEMISTRY ORDERABLES Final R esult [facility] - [facility]# [id number] [place] [id number] * (ABNORMAL) CBC WITHOUT DIFFERENTIAL (10/29/2024 7:03 AM CDT) WBC 6.7 4.0 - 9.8 K/uL 10/29/2024 7:43 AM CDT [facility] - [facility] [facility] RBC 3.93(L) 4.50 - 5.40 M/uL 10/29/2024 7:43 AM CDT [facility] - [facility] HEMOGLOBIN 9.4(L) 13.6 - 16.5 g/dL 10/29/2024 7:43 AM CDT [facility] - [facility] HEMATOCRIT 31.2(L) 40.0 - 48.0 % 10/29/2024 7:43 AM CDT [facility] - [facility] MCV 79.4(L) 82.0 - 99.0 fL 10/29/2024 7:43 AM CDT [facility] - [facility] MCH 23.9(L) 27.2 - 32.6 pg 10/29/2024 7:43 AM CDT [facility] - [facility] MCHC 30.1(L) 31.5 - 35.5 g/dL 10/29/2024 7:43 AM CDT [facility] - [facility] PLATELETS 199 140 - 350 K/uL 10/29/2024 7:43 AM CDT [facility] - [facility] MPV 9.3 9.3 - 12.4 fL 10/29/2024 7:43 AM CDT [facility] - [facility] RDW 20.6(H) 11.5 - 14.5 % 10/29/2024 7:43 AM CDT [facility] - [facility] RDW-STDEV 55.9(H) 37.1 - 48.7 fL 10/29/2024 7:43 AM T [facility] [employer] SERVICES - [facility] Blood Venipuncture / Unknown 10/29/2024 7:03 AM CDT 10/29/2024 7:21 AM CDT Uyen Boyer DO HEMATOLOGY ORDERABLES Final Result Performing Organization Address [facility] Co de Phone Number [facility]# [id number] [address] [place] [address] * PSA (10/29/2024 7:03 AM CDT) PSA 0.4 <4.0 ng/mL 10/29/2024 1:39 PM CDT [facility] Blood Venipuncture / Unknown 10/29/2024 7:03 AM CDT 10/29/2024 7:21 AM CDT Narrative [facility] - 10/29/2024 1:39 PM CDT The concentration of PSA in a given specimen, as determined by assays from different manufacturers, can vary because of differences in assay methods and reagent specificity. Values obtained with different assay methods cannot be used interchangeably. The testing method in use is the BIJU Electrochemiluminescence Immunoassay. Miguelito Reinoso MD CHEMISTRY ORDERABLES Final Result Performing Organization Address [facility] de Phone Number [facility]# [id number] [address] [place] [address] * MRI BRAIN W WO CONTRAST (10/27/2024 9:25 PM CDT) Only the most recent of3 resultswithin the time period is included. Anatomical Region Laterality Modality Head Magnetic Resonan ce 10/27/2024 9:36 PM CDT Impressions 10/27/2024 10:00 PM CDT IMPRESSION: 1. Interval postoperative appearance of cystic right frontal lobe lesion resection. Probable gross total resection although the cystic nature of the lesion limits evaluation. 2. Two unchanged subcentimeter right frontal lobe lesions. Additional 4 mm left parietal lobe lesion, increased in conspicuity on today's exam, but retrospectively present on the previous exam. DICTATION LOCATION: Location 1 - [facility] Narrative 10/27/2024 10:00 PM CDT EXAMINATION: MRI BRAIN W WO CONTRAST HISTORY: Craniotomy, post-op. 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 FINDINGS: Comparison is made with a study from 10/26/2023 Interval postoperative changes of right frontoparietal craniotomy are seen. There is trace extra-axial fluid subjacent to the craniotomy site along the right cerebral convexity and right superior falx. There is mild dural thickening along the right cerebral convexity subjacent to the craniotomy site. There is a right frontal lobe resection cavity with blood products and mild enhancement along the periphery. There is no definitive evidence of residual disease although evaluation is limited given the cystic appearance of the lesion on the preoperative exam. There is FLAIR hyperintensity in the right frontal lobe surrounding the resection cavity, not significantly changed from the preoperative exam. There has been near resolution of right ventricular effacement and midline shift. There is an unchanged 6 mm enhancing lesion in the precentral gyrus of the right frontal lobe. There is an unchanged 4 mm enhancing lesion in the gyrus rectus of the right inferior frontal lobe. There is an additional 4 mm left parietal lobe lesion, which is increased in conspicuity on today's exam with a thick slice postcontrast sequence.No evidence of acute cerebral infarction is seen. There is mild cerebral volume loss with associated ex vacuo ventricular dilatation. Periventricular, subcortical, and pontine white matter FLAIR hyperintensities likely represent sequelae of chronic small vessel ischemic disease. There is a chronic right cerebellar lacunar infarct. The sella appears normal The posterior fossa, brainstem, and craniocervical junction otherwise appear normal. Other than bilateral cataract extractions and mild paranasal sinus disease, the visible portions of the orbits, paranasal sinuses, and mastoids appear normal. Normal flow voids are demonstrated in the carotid arteries and basilar artery. Degenerative changes are seen in the visible cervical spine. Procedure Note Albert Hernandez MD - 10/27/2024 EXAMINATION: MRI BRAIN W WO CONTRAST HISTORY: Craniotomy, post-op. 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 FINDINGS: Comparison is made with a study from 10/26/2023 Interval postoperative changes of right frontoparietal craniotomy are seen. There is trace extra-axial fluid subjacent to the craniotomy site along the right cerebral convexity and right superior falx. There is mild dural thickening along the right cerebral convexity subjacent to the craniotomy site. There is a right frontal lobe resection cavity with blood products and mild enhancement along the periphery. There is no definitive evidence of residual disease although evaluation is limited given the cystic appearance of the lesion on the preoperative exam. There is FLAIR hyperintensity in the right frontal lobe surrounding the resection cavity, not significantly changed from the preoperative exam. There has been near resolution of right ventricular effacement and midline shift. There is an unchanged 6 mm enhancing lesion in the precentral gyrus of the right frontal lobe. There is an unchanged 4 mm enhancing lesion in the gyrus rectus of the right inferior frontal lobe. There is an additional 4 mm left parietal lobe lesion, which is increased in conspicuity on today's exam with a thick slice postcontrast sequence.No evidence of acute cerebral infarction is seen. There is mild cerebral volume loss with associated ex vacuo ventricular dilatation. Periventricular, subcortical, and pontine white matter FLAIR hyperintensities likely represent sequelae of chronic small vessel ischemic disease. There is a chronic right cerebellar lacunar infarct. The sella appears normal The posterior fossa, brainstem, and craniocervical junction otherwise appear normal. Other than bilateral cataract extractions and mild paranasal sinus disease, the visible portions of the orbits, paranasal sinuses, and mastoids appear normal. Normal flow voids are demonstrated in the carotid arteries and basilar artery. Degenerative changes are seen in the visible cervical spine. IMPRESSION: 1. Interval postoperative appearance of cystic right frontal lobe lesion resection. Probable gross total resection although the cystic nature of the lesion limits evaluation. 2. Two unchanged subcentimeter right frontal lobe lesions. Additional 4 mm left parietal lobe lesion, increased in conspicuity on today's exam, but retrospectively present on the previous exam. DICTATION LOCATION: Location 1 - [facility] Uyen Rosales Merlin DO MR ORDERABLES Final Result * MANUAL DIFFERENTIAL (10/27/2024 3:39 AM CDT) Only the most recent of3 resultswithin the time period is included. PLATELET EST. Consistent w Count 10/27/2024 5:37 AM CDT [facility] - . [facility] ANISOCYTOSIS 1+ /hpf 10/27/2024 5:37 AM CDT [facility] - [facility] POIKILOCYTES 1+ /hpf 10/27/2024 5:37 AM CDT [facility] - . [facility] HYPOCHROMIA 1+ /hpf 10/27/2024 5:37 AM CDT [facility] - . [facility] OVALOCYTES 1+ /hpf 10/27/2024 5:37 AM CDT [facility] - . [facility] CRENATED RBCS Present 10/27/2024 5:37 AM CDT [facility] - . [facility] Blood Venipuncture / Unknown 10/27/2024 3:39 AM CDT 10/27/2024 3:42 AM CDT Chano Sykes MD HEMATOLOGY ORDERABLES COM Fin al Result [facility]# [id number] [address] [facility] [place] [address] * (ABNORMAL) CBC WITH DIFFERENTIAL (10/27/2024 3:39 AM CDT) Only the most recent of4 resultswithin the time period is included. WBC 7.4 4.0 - 9.8 K/uL 10/27/2024 4:01 AM CDT [facility] RBC 4.15(L) 4.50 - 5.40 M/uL 10/27/2024 4:01 AM CDT [facility] - . [facility] HEMOGLOBIN 9.8(L) 13.6 - 16.5 g/dL 10/27/2024 4:01 AM CDT [facility] - [facility] HEMATOCRIT 32.5(L) 40.0 - 48.0 % 10/27/2024 4:01 AM CDT [facility] - . [facility] MCV 78.3(L) 82.0 - 99.0 fL 10/27/2024 4:01 AM T [facility] - . [facility] MCH 23.6(L) 27.2 - 32.6 pg 10/27/2024 4:01 AM CDT [facility] - [facility] MCHC 30.2(L) 31.5 - 35.5 g/dL 10/27/2024 4:01 AM [employer] [facility] - [facility] RDW 20.3(H) 11.5 - 14.5 % 10/27/2024 4:01 AM [employer] [facility]ORAT[facility] SERVICES - [facility] RDW-STDEV 54.5(H) 37.1 - 48.7 fL 10/27/2024 4:01 AM [employer] [facility] - [facility] PLATELETS 222 140 - 350 K/uL 10/27/2024 4:01 AM [employer] [facility] - [facility] MPV 9.2(L) 9.3 - 12.4 fL 10/27/2024 4:01 AM [employer] [facility] - [facility] NEUTROPHILS 90 % 10/27/2024 4:01 AM [employer] [facility] - [facility] LYMPHOCYTES 3 % 10/27/2024 4:01 AM [employer] [facility] - . [facility] MONOCYTES 6 % 10/27/2024 4:01 AM [employer] [facility] - . [facility] EOSINOPHILS 0 % 10/27/2024 4:01 AM CDT [facility] - . [facility] BASOPHILS 0 % 10/27/2024 4:01 AM [employer] [facility] - . [facility] IMMATURE GRANULOCYTES 1 % 10/27/2024 4:01 AM [employer] [facility] - [facility] Comment:IG (Immature Granulo cyte) count includes Metamyelocytes, Myelocytes, and Promyelocytes NEUTROPHIL ABSOLUTE 6.70 1.90 - 7.00 K/uL 10/27/2024 4:01 AM [employer] [facility] - . [facility] LYMPHOCYTE ABSOLUTE 0.19(L) 0.70 - 4.50 K/uL 10/27/2024 4:01 AM CDT [facility] - . [facility] MONOCYTE ABSOLUTE 0.43 0.10 - 1.30 K/uL 10/27/2024 4:01 AM CDT [facility] - [facility] EOSINOPHIL ABSOLUTE 0.01 0.00 - 0.70 K/uL 10/27/2024 4:01 AM CDT [facility] - . [facility] BASOPHILS ABSOLUTE 0.01 0.00 - 0.20 K/uL 10/27/2024 4:01 AM CDT [facility] - [facility] IMMATURE GRANULOCYTES ABSOLUTE 0.09(H) 0.00 - 0.03 K/uL 10/27/2024 4:01 AM T [facility] - [facility] Blood Venipuncture / Unknown 10/27/2024 3:39 AM CDT 10/27/2024 3:42 AM CDT Nicho Petty MD HEMATOLOGY ORDERABLES Final Result [facility] CLIA# [id number] [address] [address] * (ABNORMAL) PHOSPHORUS (10/27/2024 3:39 AM CDT) [facility] PHOSPHORUS 1.7(L) 2.5 - 4.5 mg/dL 10/27/2024 4:43 AM CDT [facility] Blood Venipuncture / Unknown 10/27/2024 3:39 AM CDT 10/27/2024 3:42 AM CDT Nicho Petty MD CHEMISTRY ORDERABLES Final R esult [facility] CLIA# [id number] [address] [address] * MAGNESIUM LEVEL (10/27/2024 3:39 AM CDT) [facility] MAGNESIUM 2.2 1.6 - 2.4 mg/dL 10/27/2024 4:43 AM CDT [facility] Blood Venipuncture / Unknown 10/27/2024 3:39 AM CDT 10/27/2024 3:42 AM CDT Nicho Petty MD CHEMISTRY ORDERABLES Final R esult Performing Organization Address City/Va Hospital/ZIP Co de Phone Number [facility] CLIA# [id number] [address] [place] [address] * (ABNORMAL) HEMOGLOBIN A1C (10/27/2024 3:39 AM CDT) [facility] HEMOGLOBIN A1C 6.9(H) <5.7 % 10/27/2024 8:23 AM CDT [facility] EST. AVG GLUCOSE, A1C 151 mg/dL 10/27/2024 8:23 AM CDT [facility] [employer] [facility] Blood Venipuncture / Unknown 10/27/2024 3:39 AM CDT 10/27/2024 3:42 AM CDT Narrative [facility] - 10/27/2024 8:23 AM CDT HGB A1C INTERPRETATION NORMAL: <5.7% PRE-DIABETES: 5.7 - 6.4% DIABETES: 6.5% OR GREATER Nicho Petyt MD CHEMISTRY ORDERABLES Final R esult Performing Organization Address City/Va Hospital/ZIP Co de Phone Number [facility] CLIA# [id number] [address] [place] [address] * OSMOLALITY (10/26/2024 3:10 PM CDT) [facility] OSMOLALITY 288 275 - 300 mOsm/kg 10/26/2024 3:58 PM CDT [facility] [employer] [facility] Blood Venipuncture / Unknown 10/26/2024 3:10 PM CDT 10/26/2024 3:16 PM CDT Result [facility] Chano Sykes MD CHEMISTRY ORDERABLES Final Re sult [facility] CLIA# [id number] [address] [place] [address] * SODIUM, RANDOM URINE (10/26/2024 3:05 PM CDT) SODIUM, URINE 32 mmol/L 10/26/2024 3:32 PM CDT [facility] [employer] [facility] Comment:Reference range not established Urine URINE SPECIMEN OBTAINED BY CLEAN CATCH PROCEDURE / Unknown Collection / Unknown 10/26/2024 3:05 PM CDT 10/26/2024 3:12 PM CDT Chano Sykes MD URINE ORDERABLES Final Result Performing Organization Address [facility] Hospital/ZIP Co de Phone Number [facility] [employer] [facility] CLIA# [id number] [address] [place] [address] * OSMOLALITY, URINE (10/26/2024 3:05 PM CDT) OSMOLALITY, URINE 335 50 - 1,200 mOsm/kg 10/26/2024 3:42 PM CDT [facility] [employer] [facility] Urine URINE SPECIMEN OBTAINED BY CLEAN CATCH PROCEDURE / Unknown Collection / Unknown 10/26/2024 3:05 PM CDT 10/26/2024 3:12 PM CDT Narrative [facility] [employer] [facility] - 10/26/2024 3:42 PM CDT Reference range: 50-1200 mOsm/kg H2O, depending on fluid intake. Result [facility] Chano Sykes MD URINE ORDERABLES Final Result Performing Organization Address City/[facility] Hospital/ZIP Co de Phone Number [facility] [employer] [facility] CLIA# [id number] [address] [place] [place] [address] * PATHOLOGY (10/26/2024 8:36 AM CDT) CASE REPORT Surgical Pathology Report Case: [id number] Authorizing Provider: Ad Chang MD Collected: 10/26/2024 08:36 AM Ordering Location: [facility] Received: 10/26/2024 09:48 AM Operating Room Pathologist: Melissa Louis MD Specimen: Brain, right frontal lobe mass 10:23 AM CDT [facility] ADDENDUM 1 A request for [employer] was received on 10/31/[address] Miguelito Reinoso. This test was performed on tissue from case [id number]. The case report, slides, and blocks for this case were retrieved from archives. The pathologist reviewed the original pathology report, examined candidate slides, and selected the most appropriate block(A2 and A3). This selected material was forwarded to [facility] where the test was performed. The final report will be issued directly to the requesting physician. 10:23 AM T [facility] Addendum electronically signed by Melissa Louis MD on 11/05/2024 at 1023 CDT FINAL DIAGNOSIS Brain, right frontal lobe mass, craniotomy with resection (FS1/X): - Metastatic poorly differentiated carcinoma. 10:23 AM CDT [facility] at 1621 CDT GROSS DESCRIPTION Received in a single container labeled Anne Elias, right frontal lobe mass for frozen section is a 2 x 1.5 x 0.5 cm aggregate of yellow-rodarte to pink-rodarte tissue. Touch preps are performed labeled TP1. A portion of the tissue is frozen as FS1. The frozen section remnant is submitted in cassette A1. The remainder of the specimen is submitted in cassettes A2 and A3. KA 10:23 AM CDT [facility] MICROSCOPIC DESCRIPTION The slides are labeled [id number] and Anne Elias. Sections show a metastatic epithelioid neoplasm, comprised of cells with round to oval nuclei with prominent nucleoli and eosinophilic cytoplasm. There is brisk mitotic activity and focal necrosis. The tumor cells show diffuse positive staining for pancytokeratin and CK5/6 and focal weak nuclear staining for p40. The tumor cells are negative for CK7, CK20, synaptophysin, TTF-1, Napsin A, PAX8, NKX3.1, GATA3 and CDX2. The histologic features and immunohistochemical staining profile are consistent with metastatic poorly differentiated carcinoma. The tumor shows focal squamous features with positive staining for CK5/6 and focal weak nuclear staining for p40. The histologic features and immunohistochemical staining profile are nonspecific. Patient's imaging findings of a lung mass are noted. Please correlate clinically for potential primary site. Additional molecular studies/[employer] can be performed on request. 5 10:23 AM [facility] INTRAOPERATIVE CONSULTATION FS1-Brain, right frontal lobe mass-Malignant neoplasm, defer to permanent. The diagnosis was given to Dr. Chang on his cell phone by Dr. Conner Hernandez. 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 Note on use of immunohistochemistry reagents and in situ hybridization probes: These tests were developed and their performance characteristics determined by [facility] Department of Laboratory Medicine. It has not been cleared or approved by the U.S. Food and Drug Administration. The FDA has determined that such clearance or approval is not necessary. The test is used for clinical purposes. It should not be regarded as investigational or for research. This laboratory is certified to perform high complexity testing. Frozen section/operating room consultation, gross examination and dissection, and case sign out may have been performed in part or completely in the following laboratories: [facility], CLIA #[id number] [address] [place] [id number] [place], [place] [address]IA #[id number] [address] [place] [address] [facility] [place], [place] #[id number] [address] [place] [address] This report was created with the [employer] voice-activated dictation system. Inherent to this system is the possibility of syntax, grammar, punctuation and other errors that could impact the interpretation of the report. If there are interpretative questions about aspects of this report, please contact the performing pathologist. 10:23 AM CDT [facility] [employer] [facility] Tissue ENTIRE BRAIN / Unknown Collection / Unknown 10/26/2024 8:36 AM CDT 10/26/2024 9:48 AM CDT us Ad Chang MD PATHOLOGY/CYTOLOGY ORDERABLE S Edited Result - Final Performing Organization Address City/Va Hospital/ZIP Co de Phone Number [facility] [employer] [facility]# [id number] [address] [place] [address] * POC LACTIC ACID (10/26/2024 7:52 AM CDT) LACTIC ACID POC 1.3 <=2.0 mmol/L 10/26/2024 7:52 AM CDT [facility] [employer] [facility] SPECIMEN SOURCE, GASES POC Arterial 10/26/2024 7:52 AM CDT [facility] [employer] [facility] COMMENT, GASES POC Responsible Clinical Caregiver notified 10/26/2024 7:52 AM CDT [facility] [employer] [facility] Blood 10/26/2024 7:52 AM CDT 10/26/2024 7:53 AM CDT us Chano Sykes MD POINT OF CARE TESTING Final R esult [facility] [employer] [id number] [address] [place] [address] * (ABNORMAL) BLOOD GAS,(INCL. H+H, LYTES, GLUC) (10/26/2024 7:52 AM [facility]) [facility] PH BLOOD POC 7.45 7.35 - 7.45 10/26/2024 7:52 AM REPLACED BY [facility] PCO2 POC 40 35 - 48 mm Hg 10/26/2024 7:52 AM REPLACED BY [facility] PO2 POC 168(H) 83 - 108 mm Hg 10/26/2024 7:52 AM REPLACED BY [facility] TCO2 (CALC) POC 29(H) 19 - 24 mmol/L 10/26/2024 7:52 AM [facility] HCO3 (CALC) POC 28(H) 22 - 26 mmol/L 10/26/2024 7:52 AM REPLACED BY [facility] O2 SATURATION POC 100(H) 94 - 98 % 10/26/2024 7:52 AM REPLACED BY [facility] BASE EXCESS POC 4(H) -2 - 3 mmol/L 10/26/2024 7:52 AM REPLACED BY [facility] HEMOGLOBIN POC 9.9(L) 13.6 - 16.5 g/dL 10/26/2024 7:52 AM REPLACED BY [facility] HEMATOCRIT POC 30(L) 40 - 48 % 10/26/2024 7:52 AM REPLACED BY [facility] Comment:Estimated Value GLUCOSE POC 89 74 - 99 mg/dL 10/26/2024 7:52 AM REPLACED BY [facility] SODIUM POC 132(L) 136 - 145 mmol/L 10/26/2024 7:52 AM REPLACED BY [facility] POTASSIUM POC 4.5 3.5 - 5.0 mmol/L 10/26/2024 7:52 AM REPLACED BY [facility] CHLORIDE POC 102 98 - 107 mmol/L 10/26/2024 7:52 AM REPLACED BY [facility] CALCIUM IONIZED POC 4.6(L) 4.7 - 5.1 mg/dL 10/26/2024 7:52 AM REPLACED BY [facility] PH TEMP CORRECT 7.45 7.35 - 7.45 10/26/2024 7:52 AM CDT [facility] PCO2 TEMP CORRECT 40 35 - 48 mm Hg 10/26/2024 7:52 AM CDT [facility] PO2 TEMP CORRECT 168(H) 83 - 108 mm Hg 10/26/2024 7:52 AM CDT [facility] SPECIMEN SOURCE, GASES POC Arterial 10/26/2024 7:52 AM CDT [facility] PATIENT'S TEMPERATURE POC 37.0 degrees 10/26/2024 7:52 AM CDT [facility] [employer] [facility] COMMENT, GASES POC Responsible Clinical Caregiver notified 10/26/2024 7:52 AM CDT [facility] [employer] [facility] Blood, arterial 10/26/2024 7 :52 AM CDT 10/26/2024 7:53 AM CDT Chano Sykes MD ABG ORDERABLES Final Result Performing Organization Address City/State/[facility] Co de Phone Number [facility] [employer] [facility]# [id number] [address] [place], [place] [address] [address] * [place] ANES INSERT CATH, ART, PERCUT, SHORTTERM (10/26/2024 7:35 AM CDT) Narrative Meenu Dick AA-C - 10/26/2024 7:35 AM CDT Meenu Dick AA-C 10/26/2024 7:36 AM Arterial Line Insertion Start Time: 10/26/2024 7:15 AM End Time: 10/26/2024 7:20 AM Patient location during procedure: OR Staffing Performed: Student NA/AA Authorized by: Joseph Quijano MD Performed by: Meenu Dick AA-C time out called Patient was prepped and draped in usual sterile fashion Indications: hemodynamic monitoring Hand hygiene performed prior to procedure Sterile Barriers: gloves Preparation: skin prepped with alcohol Skin prep agent dried: skin prep agent completely dried prior to procedure Patient position: flat Location: right radial Seldinger technique used Catheter type: arterial introducer Catheter size: 20 G Catheter Length (in.): 4.5 [place] Identification: ultrasound guided Number of attempts: 1 Successful placement: yes Assessment: blood return through port Post-procedure: line secured and dressing applied us Joseph Quijano MD PROCEDURE/MINOR SURGICAL ORDERAB LES Final Result * [place] ANES INSERT ENDOTRACHEAL AIRWAY (10/26/2024 7:12 AM CDT) Narrative Meenu Dick AA-C - 10/26/2024 7:12 AM CDT Meenu Dick AA-C 10/26/2024 8:16 AM Airway Date/Time: 10/26/2024 7:12 AM Location: OR Plan: routine intubation Patient Identity Confirmed by: Verbally with patient and armband Airway: not difficult Staffing Performed: Student NA/AA Authorized by: Joseph Quijano MD Performed by: Meenu Dick AA-C Indications and Patient Condition: Indications for Airway Management: Anesthesia Sedation Level: general anesthesia Preoxygenated: yes Mask Difficulty Assessment: 1 - vent by mask Plan to extubate at end of case: Yes Final Airway Details: Final Airway Type: Endotracheal airway ETT Cuffed: Yes Cuff Volume (mL): 8 Technique Used for Successful ETT Placement: Direct laryngoscopy Devices/Methods Used in Placement: Cricoid pressure and intubating stylet Blade Type: curved blade Blade Size: 3 Insertion Site: Oral ETT Size (mm): 8.0 Measured from: Teeth ETT to Teeth (cm): 22 Tube secured with: Tape Placement Verified by: auscultation, end tidal CO2 and chest rise Cormack-Lehane Classification: Grade IIa - partial view of glottis Number of Attempts at Approach: 1 Additional Procedure Information: atraumatic and dentition unchanged us Joseph Quijano MD PROCEDURE/MINOR SURGICAL ORDERAB LES Edited Result - Final * (ABNORMAL) COMPREHENSIVE METABOLIC PANEL (10/26/2024 6:13 AM CDT) Only the most recent of5 resultswithin the time period is included. SODIUM 136 136 - 145 mmol/L 10/26/2024 7:17 AM CDT [facility] POTASSIUM 4.5 3.5 - 5.0 mmol/L 10/26/2024 7:17 AM CDT [facility] - [facility] CHLORIDE 98 98 - 107 mmol/L 10/26/2024 7:17 AM [facility] LABORATORY SERVICES - . [facility] CO2 27 22 - 29 mmol/L 10/26/2024 7:17 AM [facility] CALCIUM 8.8 8.6 - 10.2 mg/dL 10/26/2024 7:17 AM [facility]AT[facility] - . [facility] BUN 19 8 - 23 mg/dL 10/26/2024 7:17 AM [facility] CREATININE 0.54(L) 0.67 - 1.17 mg/dL 10/26/2024 7:17 AM [facility] LABORATORY [facility] Comment:The GFR result is no t clinically significant on patients <18 or >70 years of age. GLUCOSE 148(H) 74 - 99 mg/dL 10/26/2024 7:17 AM [facility] SERVICES - [facility] TOTAL PROTEIN 6.0(L) 6.7 - 8.6 g/dL 10/26/2024 7:17 AM [facility] ALBUMIN 3.3(L) 3.5 - 5.2 g/dL 10/26/2024 7:17 AM [facility]AT[facility] BILIRUBIN TOTAL 0.4 0.2 - 1.1 mg/dL 10/26/2024 7:17 AM [facility] ALKALINE PHOSPHATASE 81 40 - 129 U/L 10/26/2024 7:17 AM [facility] AST 17 <41 U/L 10/26/2024 7:17 AM [facility]ORAT[facility] ALT 31 <42 U/L 10/26/2024 7:17 AM [facility] LABORATORY [facility] GFR >60 mL/min/1.7 3 sq meter 10/26/2024 7:17 AM [facility] [employer] [facility] Comment:eGFR calculated with 2020 CKD-EPI equation. Vegetarian diet, extremely high or low muscle mass, and may affect results. Cystatin C with Glomerular Filtration Rate is a suitable alternative for these patients. ANION GAP 11 8 - 16 mmol/L 10/26/2024 7:17 AM CDT [facility] [employer] [facility] Blood Venipuncture / Unknown 10/26/2024 6:13 AM CDT 10/26/2024 6:20 AM CDT Critical access hospital LABORATORY [facility] - 10/26/2024 7:17 AM CDT Samples containing indocyanine green cause interferences on Total and/or Direct Bilirubin and must not be measured. us Ad Chang MD CHEMISTRY ORDERABLES Final R esult [facility] CLIA# [id number] [address] [place] [address] * VERIFICATION BLOOD GROUP (10/25/2024 2:44 PM CDT) Pathologist [facility] ABO GROUP A 10/25/2024 3:44 PM CDT [facility] [employer] [facility] RH (D) TYPE Positive 10/25/2024 3:44 PM CDT [facility] [employer] [facility] Blood Venipuncture / Unknown 10/25/2024 2:44 PM CDT 10/25/2024 2:52 PM CDT us Yi Farmer MD BLOOD BANK ORDERABLES Final Result Performing Organization Address [facility]/Va Hospital/ZIP Co de Phone Number [facility] [employer] [facility]# [id number] [address] [place] [address] * (ABNORMAL) PTT (10/25/2024 1:01 PM CDT) PTT 23.9(L) 24.4 - 36.4 seconds 10/25/2024 1:27 PM CDT [facility] [employer] [facility] Comment: PTT Therapeutic Range: Heparin Level PTT (seconds) <0.10 units/mL <55.8 0.10 - 0.30 units/mL 55.8 - 74.3 0.30 - 0.70 units/mL* 74.3 - 111.2* 0.70 - 1.00 units/mL 111.2 - 138.9 *corresponds to therapeutic range for unfractionated heparin Blood Venipuncture / Unknown 10/25/2024 1:01 PM CDT 10/25/2024 1:06 PM CDT Shahnaz GALAVIZ HEMATOLOGY ORDERABLES Final Result Performing Organization Address [facility]/Va Hospital/ZIP Co de Phone Number [facility] CLIA# [id number] [address] [place] [address] * PROTIME-INR (10/25/2024 1:01 PM CDT) PROTIME 14.4 12.7 - 15.1 Seconds 10/25/2024 1:27 PM CDT [facility] INR 1.1 0.9 - 1.1 10/25/2024 1:27 PM CDT [facility] Blood Venipuncture / Unknown 10/25/2024 1:01 PM CDT 10/25/2024 1:06 PM CDT Narrative [facility] LABORATORY [facility] - 10/25/2024 1:27 PM CDT INR Therapeutic Range: Adult: 2.0 - 3.0 for pulmonary embolism or prophylaxis against venous thrombosis or systemic embolization. 2.0 - 3.0 for patients with tissue heart valves. 2.5 - 3.5 for patients with mechanical heart valves or post [place]. Pediatric (12 years and under): 1.5 - 3.0 Although the target range in children is not well established, INR values of 1.5 - 3.0 are recommended for most patients. Higher values have been used in children with prosthetic cardiac valves and hereditary clotting disorders. (<3 days) therapeutic ranges have not been established. Shahnaz GALAVIZ HEMATOLOGY ORDERABLES Final Result Performing Organization Address City/Va Hospital/ZIP Co de Phone Number [facility]AT[facility] CLIA# [id number] [address] [place] [address] * TYPE AND SCREEN (10/25/2024 1:01 PM CDT) ABO GROUP A 10/25/2024 2:08 PM CDT [facility] SERVICES -- [facility] RH (D) TYPE Positive 10/25/2024 2:08 PM CDT [facility] -- [facility] ANTIBODY SCREEN Negative 10/25/2024 2:08 PM CDT [facility] -- [facility] Blood Venipuncture / Unknown 10/25/2024 1:01 PM CDT 10/25/2024 1:06 PM CDT Shahnaz GALAVIZ BLOOD BANK ORDERABLES Edited Result - Final [facility] SERVICES -- [facility] CLIA# [id number] [address] [facility] [place] [address] * EKG 12-LEAD (10/25/2024 9:41 AM CDT) 10/25/2024 9:41 AM CDT Narrative INTERFACE SYSTEM - 10/26/2024 1:24 AM CDT [address] [address] Test Date: 2024-10-25 Pat Name: ANNE ELIAS Department: 58 Room: [address] [place] [address] Gender: Male [employer] Assistant: [id number] : 1945 Requested By: ZOYA VARGAS Order Number: [id number] Reading MD: Mabel Rosales Measurements Intervals [place] Rate: 73 P: 32 [place]: 181 QRS: 40 QRSD: 106 T: 51 QT: 374 QTc: 412 Interpretive Statements SINUS RHYTHM WITH SINUS ARRHYTHMIA Electronically Signed On 10-26-2024 1:24:14 CDT by Mabel Rosales Procedure Note Mabel Rosales MD - 10/26/2024 [facility] [address] [place] [id number] Test Date: 2024-10-25 Pat Name: ANNE ELIAS Department: 58 Room: 4231 01 Gender: Male [employer] Assistant: [id number] : 1945 Requested By: ZOYA VARGAS Order Number: [id number] Reading MD: Mabel Rosales Measurements Intervals [place] Rate: 73 P: 32 [place]: 181 QRS: 40 QRSD: 106 T: 51 QT: 374 QTc: 412 Interpretive Statements SINUS RHYTHM WITH SINUS ARRHYTHMIA Electronically Signed On 10-26-2024 1:24:14 CDT by Mabel Rosales us Dillan Lara MD ECG ORDERABLES Final Resu lt INTERFACE SYSTEM Refer to clinic/hospital department * CT CHEST ABDOMEN PELVIS W CONT (10/24/2024 11:43 PM CDT) Anatomical Region Laterality Modality Chest Computed Tomogra phy 10/24/2024 11:2 7 PM CDT Impressions 10/25/2024 8:23 AM CDT IMPRESSION: 1. 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 2. Patchy multifocal groundglass nodular opacities and foci of subsegmental consolidation in the right upper, middle, and lower lobes as well as the juxtafissural apicoposterior left upper lobe may be infectious/inflammatory. Organizing pneumonia/treatment related pneumonitis is an additional consideration if there is appropriate history. Recommend attention on follow-up as multifocal groundglass nodules in the setting of multifocal adenocarcinoma is a differential consideration. 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 The examination was performed with the adjustment of mA according to the patient size and/or the use of Iterative Reconstruction Technique. CT Dose Length Product (DLP): 789.15 mGy*cm FINDINGS: No prior study is available for comparison at the time of this dictation. Chest: LINES/TUBES: Right IJ port catheter tip terminates in the right atrium. HEART AND MEDIASTINUM: The heart is normal in size without pericardial effusion. Heavy multivessel coronary calcifications are present. Aorta is atherosclerotic but normal in caliber. Main pulmonary artery is nondilated. There is an enlarged 2.1 cm left hilar lymph node anteriorly most consistent with regional malia metastatic disease. Smaller 1.2 cm AP window lymph node is indeterminate. LUNGS AND AIRWAYS: Moderate apical predominant centrilobular emphysema. Large heterogeneously enhancing mass in the lingula which extends from the hilum to abut the pleural surface measuring 6.6 x 6.1 x 8.4 cm (AP by TV by CC). There is adjacent subsegmental atelectasis in the upper and inferior lingula. Compressive atelectasis in the basilar left lower lobe. Indeterminate 6 mm solid noncalcified juxta fissural nodule along the right minor fissure. Additional area of patchy subsegmental consolidation in the juxtafissural apicoposterior left upper lobe. There are patchy groundglass nodular opacities and subsegmental groundglass consolidation in the right upper, middle, and lower lobes. Reference groundglass nodule in the peribronchovascular superior segment right lower lobe measures 3.3 x 2.3 cm. PLEURA: Small layering left pleural effusion. Multiple enhancing nodular foci along the left pleural surfaces consistent with pleural metastatic disease. Reference 1.4 x 2.5 cm pleural nodule anteriorly in the basilar left hemithorax. LOWER NECK AND SOFT TISSUES: The imaged thyroid gland appears normal. No axillary or subpectoral lymphadenopathy is identified. Abdomen and pelvis: LIVER: Within normal limits. BILE DUCTS: Large ill-defined 5.9 cm lesion in hepatic segment 6/7 suspicious for metastatic. Few additional smaller hypodense lesions suspicious for multifocal disease. GALLBLADDER: Within normal limits. SPLEEN: Within normal limits. PANCREAS: Within normal limits. ADRENALS: Within normal limits. KIDNEYS/URETERS: Within normal limits. BOWEL: Colonic diverticulosis without acute diverticulitis. No bowel wall thickening or obstruction. PERITONEUM/RETROPERITONEUM: No ascites, free air or enlarged mesenteric/retroperitoneal lymph nodes. PELVIC ORGANS: Prostatomegaly with radiopaque fiducial markers in place. Urinary bladder is unremarkable. No pelvic lymphadenopathy. VESSELS: Abdominal aorta is severely atherosclerotic but normal in caliber. ABDOMINAL WALL: Within normal limits. BONES: No suspicious lytic or blastic lesions. INCIDENTAL FINDINGS: None. 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 The examination was performed with the adjustment of mA according to the patient size and/or the use of Iterative Reconstruction Technique. CT Dose Length Product (DLP): 789.15 mGy*cm FINDINGS: No prior study is available for comparison at the time of this dictation. Chest: LINES/TUBES: Right IJ port catheter tip terminates in the right atrium. HEART AND MEDIASTINUM: The heart is normal in size without pericardial effusion. Heavy multivessel coronary calcifications are present. Aorta is atherosclerotic but normal in caliber. Main pulmonary artery is nondilated. There is an enlarged 2.1 cm left hilar lymph node anteriorly most consistent with regional malia metastatic disease. Smaller 1.2 cm AP window lymph node is indeterminate. LUNGS AND AIRWAYS: Moderate apical predominant centrilobular emphysema. Large heterogeneously enhancing mass in the lingula which extends from the hilum to abut the pleural surface measuring 6.6 x 6.1 x 8.4 cm (AP by TV by CC). There is adjacent subsegmental atelectasis in the upper and inferior lingula. Compressive atelectasis in the basilar left lower lobe. Indeterminate 6 mm solid noncalcified juxta fissural nodule along the right minor fissure. Additional area of patchy subsegmental consolidation in the juxtafissural apicoposterior left upper lobe. There are patchy groundglass nodular opacities and subsegmental groundglass consolidation in the right upper, middle, and lower lobes. Reference groundglass nodule in the peribronchovascular superior segment right lower lobe measures 3.3 x 2.3 cm. PLEURA: Small layering left pleural effusion. Multiple enhancing nodular foci along the left pleural surfaces consistent with pleural metastatic disease. Reference 1.4 x 2.5 cm pleural nodule anteriorly in the basilar left hemithorax. LOWER NECK AND SOFT TISSUES: The imaged thyroid gland appears normal. No axillary or subpectoral lymphadenopathy is identified. Abdomen and pelvis: LIVER: Within normal limits. BILE DUCTS: Large ill-defined 5.9 cm lesion in hepatic segment 6/7 suspicious for metastatic. Few additional smaller hypodense lesions suspicious for multifocal disease. GALLBLADDER: Within normal limits. SPLEEN: Within normal limits. PANCREAS: Within normal limits. ADRENALS: Within normal limits. KIDNEYS/URETERS: Within normal limits. BOWEL: Colonic diverticulosis without acute diverticulitis. No bowel wall thickening or obstruction. PERITONEUM/RETROPERITONEUM: No ascites, free air or enlarged mesenteric/retroperitoneal lymph nodes. PELVIC ORGANS: Prostatomegaly with radiopaque fiducial markers in place. Urinary bladder is unremarkable. No pelvic lymphadenopathy. VESSELS: Abdominal aorta is severely atherosclerotic but normal in caliber. ABDOMINAL WALL: Within normal limits. BONES: No suspicious lytic or blastic lesions. INCIDENTAL FINDINGS: None. IMPRESSION: 1. 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 2. Patchy multifocal groundglass nodular opacities and foci of subsegmental consolidation in the right upper, middle, and lower lobes as well as the juxtafissural apicoposterior left upper lobe may be infectious/inflammatory. Organizing pneumonia/treatment related pneumonitis is an additional consideration if there is appropriate history. Recommend attention on follow-up as multifocal groundglass nodules in the setting of multifocal adenocarcinoma is a differential consideration. DICTATION LOCATION: Location 1 - [facility] us Saima GALAVIZ CT ORDERABLES Final Result * (ABNORMAL) URINALYSIS WITH REFLEX MICROSCOPIC (10/24/2024 1:18 PM CDT) COLOR UA Yellow Pale to Dark Yellow 10/24/2024 1:32 PM CDT [facility] [employer] [facility] CLARITY UA Slightly Cloudy(A) Clear 10/24/2024 1:32 PM CDT [facility] LABORATORY [facility] SPECIFIC GRAVITY UA 1.020 1.003 - 1.035 10/24/2024 1:32 PM CDT [facility] LABORATORY SERVICES - [facility] PH UA 6.0 5.0 - 8.0 10/24/2024 1:32 PM CDT [facility] SERVICES - . [facility] LEUKOCYTE ESTERASE UA Negative Negative 10/24/2024 1:32 PM CDT [facility] - . [facility] NITRITE UA Negative Negative 10/24/2024 1:32 PM CDT [facility] - [facility] PROTEIN UA 1+(A) Negative 10/24/2024 1:32 PM CDT [facility] - [facility] GLUCOSE UA Negative Negative 10/24/2024 1:32 PM CDT [facility] - . [facility] KETONES UA Negative Negative 10/24/2024 1:32 PM CDT [facility] - [facility] UROBILINOGEN UA Normal <2.0 mg/dL 1:32 PM CDT [facility] - [facility] BILIRUBIN UA Negative Negative 10/24/2024 1:32 PM CDT [facility] - [facility] BLOOD UA Negative Negative 10/24/2024 1:32 PM CDT [facility] - [facility] Comment:Ascorbic acid may ca use false negative results for blood. A microscopic review was reflexed to rule out this interference. WBC UA 0-2 0 - 2 /hpf 10/24/2024 1:32 PM CDT [facility] SERVICES - . [facility] RBC UA 0-2 0 - 2 /hpf 10/24/2024 1:32 PM CDT [facility] - [facility] BACTERIA UA Negative Negative /hpf 10/24/2024 1:32 PM CDT [facility] - [facility] EPITHELIAL CELLS, URINE 0-5 0 - 5 /hpf 10/24/2024 1:32 PM CDT [facility] - . [facility] Ascorbic Acid UA Positive(A) Negative 025 1:32 PM CDT [facility] - [facility] Urine URINE SPECIMEN OBTAINED BY CLEAN CATCH PROCEDURE / Unknown Collection / Unknown 10/24/2024 1:18 PM CDT 10/24/2024 1:22 PM CDT us Saima M Owens PA URINE ORDERABLES Final Result [facility] CLIA# [id number] [address] [place] [address] * (ABNORMAL) VITAMIN B12 AND FOLATE (10/24/2024 6:15 AM CDT) VITAMIN B12 >2,000(H) 232 - 1,245 pg/mL 10/24/2024 7:20 AM CDT [facility] LABORATORY [facility] Comment:It has been reported that between 5 to 10% of patients with values between 200 and 400 pg/mL may experience neuropsychiatric and hematologic abnormalities due to occult B12 deficiency. Less than 1% of patients with values above 400 pg/mL will have symptoms. FOLATE, SERUM 12.3 >4.5 ng/mL 10/24/2024 7:20 AM CDT [facility] [employer] [facility] Blood Venipuncture / Unknown 10/24/2024 6:15 AM CDT 10/24/2024 6:27 AM CDT Karen Couch MD CHEMISTRY ORDERABLES Final Result [facility] [employer] [facility] CLIA# [id number] [address] [place] [address] * (ABNORMAL) IRON, TIBC, AND PERCENT SATURATION (10/23/2024 8:41 PM CDT) IRON 46(L) 59 - 158 ug/dL 10/24/2024 7:14 AM CDT [facility] TIBC 250 250 - 450 ug/dL 10/24/2024 7:14 AM CDT [facility] IRON % SATURATION 18(L) 20 - 50 % 10/24/2024 7:14 AM CDT [facility] TRANSFERRIN 197(L) 200 - 360 mg/dL 10/24/2024 7:14 AM CDT [facility] Blood Venipuncture / Unknown 10/23/2024 8:41 PM CDT 10/23/2024 8:51 PM CDT Karen Couch MD CHEMISTRY ORDERABLES Final Result Performing Organization Address [facility] Co de Phone Number [facility]# [id number] [address] [place] [address] * (ABNORMAL) FERRITIN (10/23/2024 8:41 PM CDT) FERRITIN 764.0(H) 30.0 - 400.0 ng/mL 10/24/2024 7:14 AM CDT [facility] Blood Venipuncture / Unknown 10/23/2024 8:41 PM CDT 10/23/2024 8:51 PM CDT Result [facility] Karen Couch MD CHEMISTRY ORDERABLES Final Result Performing Organization Address [facility] Co de Phone Number [facility]# [id number] [address] [place] [address] * Critical Care (10/23/2024 7:45 PM CDT) Narrative Zoya Vargas MD - 10/23/2024 7:45 PM CDT Zoya Vargas MD 10/23/2024 10:11 PM Critical Care Performed by: Zoya Vargas MD Authorized by: Zoya Vargas MD Critical care provider statement: Critical care time (minutes): 35 Critical care time was exclusive of: Separately billable procedures and treating other patients Critical care was necessary to treat or prevent imminent or life-threatening deterioration of the following conditions: PRIVATE DETECTIVE failure or compromise Critical care was time spent personally by me on the following activities: Blood draw for specimens, development of treatment plan with patient or surrogate, discussions with consultants, evaluation of patient's response to treatment, examination of patient, obtaining history from patient or surrogate, ordering and performing treatments and interventions, ordering and review of laboratory studies, ordering and review of radiographic studies, pulse oximetry, re-evaluation of patient's condition and review of old charts I assumed direction of critical care for this patient from another provider in my specialty: no Care discussed with: admitting provider Zoya Vargas MD PROCEDURE/MINOR SURGICAL ORDERAB LES Final Result * CT HEAD W CONTRAST (10/23/2024 4:18 PM CDT) Anatomical Region Laterality Modality Head Computed Tomogra phy Agustin Brown MD CT ORDERABLES Final Result * CBC WITH AUTODIFFERENTIAL (10/16/2024 12:44 PM CDT) Blood Agustin Brown MD HEMATOLOGY ORDERABLES Final Res ult from Last 3 Months Insurance [employer] PPO [facility] RX [employer] Medicare Part D RX AG PLANS (INTERNAL) [facility] [place] [id number] [facility] Advance Directives For more information, please contact: [phone] * Full Code (Latest Code Status on File) Date Activated Date Inactivated Comments 10/30/2024 12:14 PM 10/30/2024 6:31 PM * NO CPR (In Event of Cardiopulmonary Arrest) Date Activated Date Inactivated Comments 10/24/2024 8:04 AM 10/30/2024 12:14 PM Question Answer Comments Mechanical Ventilation (for respiratory distress) - Invasive (i.e. intubation): No Mechanical Ventilation (for respiratory distress) - Non-Invasive (i.e. BiPAP, CPAP): Yes * Default Full Code - Needs Discussion Date Activated Date Inactivated Comments 10/23/2024 10:21 PM 10/24/2024 8:03 AM Care Teams Technical Laboratory Asst Relationship Specialty Start Date End Date Chaka Colin MD [address] [place] [address] PCP - General Family Practice 08/09/24
[2024-11-07 10:16] LABS: Iron 41 ug/dL (49-181)
[2024-11-07 10:21] LABS: Alanine Aminotransferase 41 U/L (6-50); Albumin Level 3.1 g/dL (3.5-5.1); Alkaline Phosphatase 96 U/L (38-126); Anion Gap 7 mmol/L (4-12); Aspartate Amino Transferase 25 U/L (17-59); Bilirubin,Total 0.8 mg/dL (0.2-1.3); Blood Urea Nitrogen 10 mg/dL (9-20); Calcium 8.2 mg/dL (8.4-10.2); Carbon Dioxide 28 mmol/L (22-30); Chloride 103 mmol/L (98-107); Estimated Glomerular Filt Rate > 60; Glucose 149 mg/dL (65-110); Potassium 3.5 mmol/L (3.4-5.0); Sodium 138 mmol/L (137-145)
[2024-11-07 10:28] LABS: Percent Iron Saturation 17 % (20-50)
[2024-11-07 11:17] LABS: Hemoglobin A1C 6.6 % (<5.7)
== END 2024-11-07 08:50 | disposition home or self-care (01) ==
LOC: ANHLAB 08:50
PROVIDERS: PCP Family Medicine; Visit Provider Family Medicine
DX: J90 Pleural effusion, not elsewhere classified (principal); I10 Essential (primary) hypertension; R73.03 Prediabetes; D64.9 Anemia, unspecified; Z86.2 Personal history of diseases of the blood and blood-forming organs and certain disorders involving the immune mechanism
CPT/HCPCS: 36415; 80053; 82728; 83036; 83540; 83550

== ENCOUNTER 2024-11-12 10:48 | Outpatient (CLI) | payer OTHER, SELFPAY ==
--- OUTSIDE RECORDS SUMMARY | 2024-11-12 11:45 | XMS_ITS | Encounter Summary ---
Author Organization [facility] Address [address] [facility] [place] [address] Care Team Providers Care Sprinkler Helper Name Role Phone Almas Stapleton MD Unavailable [phone] Alejandro Kellogg DO Primary Care Provider [phone] Encounter Details Date Type Department Care Team (Late st Contact Info) Description 08/13/2024 Lab Requisition 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 Gender Identity Not on file Sexual Orientation Not on file documented as of this encounter Plan of Treatment Pending Results Name Type Priority Associated Diagnoses Date /Time SLIDE PREP HISTOLOGY Pathology Cytology Routine Illness, unspecified 08/10/2024 documented as of this encounter Visit Diagnoses Diagnosis Illness, unspecified documented in this encounter Care Teams Sprinkler Helper Relationship Specialty Start Date End Date Alejandro Kellogg DO [facility] [place] [phone] PCP - General 02/23/22 Almas Stapleton MD Orthopedic Surgery 09/01/11 documented as of this encounter
--- OUTSIDE RECORDS SUMMARY | 2024-11-12 11:45 | XMS_ITS | Encounter Summary ---
Author Organization [facility] Address [address] [facility] [place] [address] Care Team Providers Care Gas Substation Operator Name Role Phone Almas Stapleton MD Unavailable [phone] Alejandro Kellogg DO Primary Care Provider [phone] Encounter Details Date Type Department Care Team (Late st Contact Info) Description 08/16/2024 Lab Requisition [facility] - Pathology Lab [address] [place] [address] Preston Rowland MD [address] [address] Illness, unspecified Social History Tobacco Use Types Packs/Day Years Used Date Smoking Tobacco: Former Cigarettes 1 25 0 07/11/1971 - 07/11/1996 Smokeless Tobacco: Never Alcohol Use Standard Drinks/Week Comments Yes 22.5 (1 standard drink = 0.6 oz pure alcohol) 2 drinks/day Sex and Gender Information Value Date Recorded Sex Assigned at Not on file 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 Gender Identity Not on file Sexual Orientation Not on file documented as of this encounter Plan of Treatment Pending Results Name Type Priority Associated Diagnoses Date /Time SLIDE PREP HISTOLOGY Pathology Cytology Routine Illness, unspecified 08/10/2024 documented as of this encounter Visit Diagnoses Diagnosis Illness, unspecified documented in this encounter Care Teams Gas Substation Operator Relationship Specialty Start Date End Date Alejandro Kellogg DO [facility] [place] [address] PCP - General 02/23/22 Almas Stapleton MD Orthopedic Surgery 09/01/11 documented as of this encounter
--- OUTSIDE RECORDS SUMMARY | 2024-11-12 11:45 | XMS_ITS | Encounter Summary ---
Author Organization [facility] Backtrace I/O 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 Gender Identity Not on file Sexual Orientation Not on file documented as of this encounter Plan of Treatment Upcoming Encounters Date Type Department Care Team (Late st Contact Info) Description 11/13/2024 1:00 PM CDT Appointment [facility] Radiation Therapy [address] [place] [address] Jono Edouard MD [address] [facility] [address] [place] [address] 11/13/2024 2:30 PM CDT Hospital Encounter [facility] MRI [address] [place] [address] Jono Edouard MD [address] [place] [address] 11/14/2024 4:30 PM CDT Telephone Check Up [facility] Oncology and Hematology - [place] [address] [facility] [address] [place] [address] Agustin Brown MD [address] [facility] [address] [place] [address] 01/18/2025 12:45 PM CDT Appointment [facility] Medicine MRI [address] [facility] [address] [place] [address] Dianna Reid PA [address] [facility] [address] [place] [address] 01/21/2025 1:00 PM CDT Office Visit [facility] Neurosurgery - [facility] [place] [address] [facility] [address] [place] [address] Ad Chang MD [address] [facility] [address] [address] -x0 (Work) documented as of this encounter Visit Diagnoses Diagnosis Prostate cancer (CMS/HCC) Malignant neoplasm of prostate documented in this encounter Care Teams Toe Pounder Relationship Specialty Start Date End Date Chaka Colin MD [address] [facility] [place] [address] PCP - General Family Practice 08/09/24 documented as of this encounter
--- OUTSIDE RECORDS SUMMARY | 2024-11-12 11:45 | XMS_ITS | Clinical Summary ---
Author Organization [facility] Address [address] [facility] [place] [address] Care Team Providers Care Skate Boarder Name Role Phone Almas Stapleton MD Unavailable [phone] Alejandro Kellogg DO Primary Care Provider Source Comments [facility],non-owned Affiliates and Associated Physician Practices is amultiple site organization consisting of ambulatory clinics and hospital sitesin [place], [place], [place] and [place]. This disclosure is being madepursuant to the Care Everywhere program and may not contain all information available regarding this patient. 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 Gender Identity Not on file Sexual Orientation Not on file Last Filed Vital Signs Vital Sign Reading Time Taken Comments Blood Pressure 117/74 09/04/2012 6:06 AM TREE WRAPPER Pulse 78 09/04/2012 6:06 AM TREE WRAPPER Temperature 36.9 C (98.4 F) 09/04/2012 6:06 AM TREE WRAPPER Respiratory Rate 18 09/04/2012 6:06 AM TREE WRAPPER Oxygen Saturation 98% 09/04/2012 6:06 AM TREE WRAPPER Inhaled Oxygen Concentration - - Weight 88.4 kg (194 lb 12.8 oz) 09/01/2012 7:04 AM TREE WRAPPER Height 175.3 cm (5' 9 ) 09/01/2012 7:04 AM TREE WRAPPER Body Mass Index 28.77 09/01/2012 7:04 AM TREE WRAPPER Plan of Treatment Health Maintenance Due Date Last Done Comments MEDICARE AWV 12 MONTHS 1945 DTAP/TDAP/TD VACCINES (1 - Tdap) 11/19/1962 ZOSTER VACCINE (1 of 2) 11/19/1993 PNEUMOCOCCAL VACCINE 50+ (2 of 2 - PCV) 09/04/2013 09/04/2012 Respiratory Syncytial Virus (RSV) Vaccine Pt: or over 60 yrs (1 - 1-dose 75+ series) 11/19/2018 COVID-19 VACCINE (1 - 2023-2 5 season) 2024 DEPRESSION SCREENING [...] patient's age to complete this topic Insurance [employer] MEDICARE ADV PPO [employer] MED[employer]ARE [facility] MEDIC[facility] [employer] Advance Directives Documents on File Type Date Recorded 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
--- OUTSIDE RECORDS SUMMARY | 2024-11-12 11:45 | XMS_ITS | Referral Summary ---
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
--- OUTSIDE RECORDS SUMMARY | 2024-11-12 11:45 | XMS_ITS ---
[facility] Address [address] [place] [address] Care Team Providers Care Dinkey Locomotive Engineer Name Role Phone Chaka Colin MD Primary [...]
--- OUTSIDE RECORDS SUMMARY | 2024-11-12 11:45 | XMS_ITS | Clinical Summary ---
Author Organization [facility] Denice Alexandratatiana Address [address] [place] [address] Care Team Providers Care Kiln Firer Helper Name Role Phone Chaka Colin MD Primary Care Provider Allergies No known active allergies Medications ondansetron (ZOFRAN ODT) 8 mg Tablet, Rapid [...] daily. 60 Tablet 2 10/17/19 25 Active Additional Information Patient taking differently:50 mg Oral DAILY,1/2 tablet, Reported on 11/07/2024 omeprazole (PriLOSEC) 20 mg Capsule, Delayed Release(E.C.) Take 20 mg by mouth daily. Active ferrous sulfate 325 mg (65 mg iron) tablet Take 325 mg by mouth daily. Active simvastatin (ZOCOR) 5 mg tablet Take 40 mg by mouth daily with supper. Active cyanocobalami n (VITAMIN B-12) 250 mcg Tablet Take 250 mcg by mouth daily. Active ergocalcifero l (VITAMIN D2) 50,000 unit capsule Take 50,000 Units by mouth every 7 days. Tuesday Active Sodium Chloride 1,000 mg Tablet, Soluble Take 1 Tablet (1,000 mg) by mouth every 8 hours. 90 Tablet 5 4:24 PM CDT 10/31/19 25 Active levETIRAcetam (Keppra) 500 mg tablet Take 1 Tablet (500 mg) by mouth 2 times daily. 30 Tablet 11/08/19 25 Active mirtazapine (REMERON) 7.5 mg tablet Take 1 Tablet (7.5 mg) by mouth daily at bedtime. 30 Tablet 1 11/08/19 25 Active abiraterone (ZYTIGA) 250 mg tablet Take 4 Tablets (1,000 mg) by mouth daily before breakfast. 120 Tablet 4 5 10:01 AM CDT 08/17/19 25 025 Discontinued(Re order) predniSONE (DELTASONE) 5 mg tablet Take 1 Tablet (5 mg) by mouth 2 times daily with meals. 60 Tablet 4 08/17/19 25 025 Discontinued(Al ternate therapy prescribed) dexAMETHasone (DECADRON) 4 mg tablet Take 2 [...] 5 4:24 PM CDT 10/29/19 25 025 levETIRAcetam (Keppra) 500 mg tablet Take 1 Tablet (500 mg) by mouth 2 times daily. 30 Tablet 5 4:24 PM CDT 10/29/19 25 025 Discontinued(Re order) mirtazapine (REMERON) 7.5 mg tablet Take 1 Tablet (7.5 mg) by mouth daily at bedtime. 30 Tablet 1 5 4:24 PM CDT 10/31/19 25 025 Discontinued(Re order) Active Problems Problem Noted Date Diagnosed Date [...] Encounters Date Type Department Care Team Description 11/12/2024 Orders Only [facility] Oncology and Hematology - [place] [address] [place] [address] Agustin Brown MD Prostate cancer (CMS/HCC) 11/09/2024 Telephone [facility] Neurosurgery - [place] [address] [facility] [address] [place] [address] Dianna Reid PA Follow Up 11/07/2024 2:30 PM CDT Office Visit [facility] Neurosurgery [facility] [address] [address] [place] [address] Dianna Reid PA Postoperative visit (Primary Dx); 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) 11/07/2024 9:15 AM CDT Office Visit [facility] Oncology and Hematology [facility] [address] [place] [address] Agustin Brown MD 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); Prostate cancer (CMS/HCC) 11/07/2024 Orders Only [facility] Oncology and Hematology - [place] [address] [place] [address] Agustin Brown MD 11/06/2024 Orders Only [facility] Radiation Therapy [address] [place] [address] Jono Edouard MD 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) 11/05/2024 Orders Only [facility] Oncology and Hematology - [place] [address] [place] [address] Agustin Brown MD Prostate cancer (CMS/HCC) 11/01/2024 Abstract [facility] Neurosurgery [facility] [place] [address] [facility] [place] [address] Ad Chang MD 11/01/2024 Telephone [facility] Neurosurgery - [facility] [place] [address] [facility] [address] [place] [address] Provider, Abstract s/p crainiotomy 10/31/2024 3:28 PM CDT - 10/31/2024 11:59 PM CDT Hospital Encounter [facility] Imaging Services [facility] [address] [place] [phone] Saima Owens PA Discharge Disposition: Home or Self Care 10/31/2024 Telephone [facility] Oncology and Hematology [facility] [address] [place] [address] Miguelito Reinoso MD Information 10/31/2024 Telephone [facility] Neurosurgery - [facility] [place] [address] [facility] [place] [address] Ad Chang MD question 10/30/2024 External Device Data STL ABSTRACTION Provider, Abstract 10/30/2024 External Device Data ST[place] ABSTRACTION Provider, Abstract 10/30/2024 External Device Data [facility] ABSTRACTION Provider, Abstract 10/29/2024 Orders Only [facility] Oncology and Hematology [facility] [address] [place] [address] Agustin Brown MD Metastasis to brain ([facility]/HCC) (Primary Dx); Prostate cancer ([facility]/HCC) 10/28/2024 Refill [facility] Medical Telemetry [address] [place] [address] Jg Jean-Baptiste PA 10/26/2024 7:00 AM CDT Anesthesia Event [facility] Operating Room [address] [place] [address] Joseph Quijano MD Berner, Christopher D, PA-C 10/26/2024 6:45 AM CDT - 10/26/2024 11:00 AM CDT Surgery [facility] Operating Room [address] [place] [address] Ad Chang MD CRANIOTOMY STEREOTACTIC 10/24/2024 Abstract [facility] Neurosurgery [facility] [address] [facility] [place] [address] Ad Chang MD 10/24/2024 Orders Only [facility] Neurosurgery - [facility] [address] [facility] [address] [place] [address] Ad Chang MD 10/24/2024 Orders Only [facility] Oncology and Hematology - [place] [address] [place] [phone] Agustin Brown MD 10/23/2024 7:35 PM CDT - 10/30/2024 4:16 PM CDT Hospital Encounter [facility] Neurosurgery [address] [place] [address] Zoya Vargas MD Long, Robert Nathan, MD Abduljaber, MD Chery Tafoya Nisha, MD Kenguva, Venkata, MD Sermadevi, MD Malinda Pederson Senthil, MD Nuspl, DO Junior Buckner Karen, MD 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) Discharge Disposition: Home or Self Care 10/23/2024 Travel 10/23/2024 Orders Only [facility] Oncology and Hematology - [place] [address] [place] [address] Agustin Brown MD Cerebrovascular accident (CVA), unspecified mechanism (CMS/HCC) (Primary Dx) 10/22/2024 Orders Only [facility] Oncology and Hematology - [place] [address] [place] [address] Agustin Brown MD Cerebrovascular accident (CVA), unspecified mechanism (CMS/HCC) (Primary Dx); Prostate cancer (CMS/HCC) 10/17/2024 Orders Only [facility] Oncology and Hematology - [place] [address] [place] [address] Agustin Brown MD 10/16/2024 9:45 AM CDT Office Visit [facility] Oncology and Hematology - [place] [address] [place] [address] Agustin Brown MD Prostate cancer (CMS/HCC) (Primary Dx) 10/16/2024 Orders Only [facility] Oncology and Hematology - [place] [address] [place] [address] Agustin Brown MD 10/15/2024 Refill [facility] Oncology and Hematology - [place] [address] [place] [address] Agustin Brown MD 10/15/2024 Orders Only [facility] Oncology and Hematology - [place] [address] [place] [address] Agustin Brown MD Prostate cancer (CMS/HCC) 10/09/2024 9:30 AM CDT Office Visit [facility] Oncology and Hematology - [place] [address] [place] [address] Agustin Brown MD Prostate cancer (CMS/HCC) (Primary Dx) 10/09/2024 Orders Only [facility] Oncology and Hematology - [place] [address] [place] [phone] Agustin Brown MD Prostate cancer (CMS/HCC) (Primary Dx) 10/09/2024 Telephone [facility] Oncology and Hematology - [place] [address] [place] [phone] Agustin Brown MD Fatigue 10/01/2024 Orders Only [facility] Oncology and Hematology - [place] [address] [place] [address] Agustin Brown MD Prostate cancer ([facility]/HCC) 09/27/2024 Orders Only [facility] Oncology and Hematology - [place] [address] [place] [address] Agustin Brown MD 09/26/2024 External Device Data STL ABSTRACTION Provider, Abstract 09/25/2024 Specialty Pharmacy [facility] [address] [place] [address] [place] [address] Lina Quintanilla, PHARMACIST Specialty Pharmacy Clinical Assessment 09/25/2024 Specialty Pharmacy [facility] [address] [place] [address] [place] [phone] Michelle Ruiz, PHARMACIST Specialty Pharmacy Refill Coordination 09/20/2024 Abstract [facility] Oncology and Hematology - [place] [address] [place] [address] Agustin Brown MD 09/19/2024 Refill [facility] Oncology and Hematology - [place] [address] [place] [address] Agustin Brown MD 09/18/2024 Orders Only [facility] Oncology and Hematology - [place] [address] [place] [address] Agustin Brown MD Prostate cancer ([facility]/HCC) (Primary Dx) 09/18/2024 Refill [facility] Oncology and Hematology - [place] [address] [place] [address] Agustin Brown MD 09/18/2024 Refill [facility] Oncology and Hematology - [place] [address] [place] [address] Agustin Brown MD 09/15/2024 External Device Data ST[place] ABSTRACTION Provider, Abstract 09/14/2024 External Device Data ST[place] ABSTRACTION Provider, Abstract 08/28/2024 External Device Data [place] ABSTRACTION Provider, Abstract 08/17/2024 9:[address] IN WAITER/WAITRESS Office Visit [facility] Oncology and Hematology [facility] [address] [place] [address] Agustin Brown MD Prostate cancer (CMS/HCC) (Primary Dx) 08/17/2024 Specialty Pharmacy [facility] Special[facility] [address] [facility] [place] [address] Abbie Garcia, PHARMACIST 08/17/2024 Orders Only [facility] Oncology and Hematology [facility] [address] [place] [address] Agustin Brown MD from Last 3 Months Family History Medical [...] on file Legal Sex Male 4:[address] IN WAITER/WAITRESS Gender Identity Not on file Sexual Orientation Not on file Last Filed Vital Signs Vital Sign Reading Time Taken Comments Blood Pressure 111/65 11/07/2024 2:22 PM CDT Pulse 98 11/07/2024 2:22 PM CDT Temperature 36.7 C (98.1 F) 11/07/2024 2:22 PM CDT Respiratory Rate 15 11/07/2024 9:20 AM CDT Oxygen Saturation 92% 11/07/2024 2:22 PM CDT Inhaled Oxygen Concentration - - Weight 77.1 kg (170 lb) 11/07/2024 2:22 PM CDT Height 175.3 cm (5' 9 ) 11/07/2024 2:22 PM CDT Body Mass Index 25.1 11/07/2024 2:22 PM CDT Plan of Treatment Upcoming Encounters Date Type Department Care Team (Late st Contact Info) Description 11/13/2024 1:00 PM CDT Appointment [facility] Radiation Therapy [address] [place] [address] Jono Edouard MD [address] [facility] [address] [address] 11/13/2024 2:30 PM CDT Hospital Encounter [facility] MRI [address] [place] [address] Jono Edouard MD [address] [facility] [address] [address] 11/14/2024 4:30 PM CDT Telephone Check Up [facility] Oncology and Hematology - [place] [address] [facility] [address] [place] [address] Agustin Brown MD [address] [facility] [address] [place] [address] 01/18/2025 12:45 PM CDT Appointment [facility] Medicine MRI [address] [address] [place] [address] Dianna Reid PA [address] [facility] [address] [place] [address] 01/21/2025 1:00 PM CDT Office Visit [facility] Neurosurgery - Medical [place] [address] [facility] [address] [place] [address] Ad Chang MD [address] [facility] [address] [address]x0 (Work) Health Maintenance Due Date Last Done Comments [...] series) 11/19/2018 INFLUENZA VACCINE (#1) 2024 DIABETES HBA1C Q 6 MONTHS 04/28/2025 10/27/2024 Medical Devices Implanted Type Area Rfid Developer Device Identifier Shelf Expiration Date Model / Serial / Lot Duragen + 3x3in Dp-1033 - [id number] Implanted:Qty: 1 on 10/26/2024 by Ad Chang MD at [facility] Graft Right: Cranial [employer] 04/09/2027 [id number] / / [id number] Agent Hemostat Surgicel 4x8in - [id number] Implanted:Qty: 1 on 10/26/2024 by Ad Chang MD at [facility] Hemostatic Right: Cranial [employer] [id number] 05/10/2029 1952S / / [id number] Hemostatic Surgicel 1x2in 1960 - [id number] Implanted:Qty: 1 on 10/26/2024 by Ad Chang MD at [facility] Hemostatic Right: Cranial J[employer]- [employer] [id number] 03/10/20271 / / [id number] Hemostatic Surgiflo 8ml W/ Thrombin 2994 - [id number] Implanted:Qty: 1 on 10/26/2024 by Ad Chang MD at [facility] Hemostatic Right: Cranial [employer] [id number] 01/07/2026 2994 / / [id number] Plate Matrxneuro Frame 502.065 - [id number] Implanted:Qty: 2 on 10/26/2024 by Ad Chang MD at [facility] Plate Right: Cranial J&J- DEPUY SYNTHES .502.0 65 / / Plate Matrxneuro Bur Hl Cvr .021 - [id number] Implanted:Qty: 2 on 10/26/2024 by Ad Chang MD at [facility] Plate Right: Cranial J&J- DEPUY SYNTHES .502.0 21 / / Description:[id number] Screw Matrixneuro Sd .104.01 - [id number] Implanted:Qty: 16 on 10/26/2024 by Ad Chang MD at [facility] Screw Right: Cranial J&J- DEPUY SYNTHES .503.1 04.01 / / Screw Matrixneuro Sd .105.01 - [id number] Implanted:Qty: 1 on 10/26/2024 by Ad Chang MD at [facility] Screw Right: Cranial J&J- DEPUY SYNTHES .503.1 05.01 / / Description:REQ [id number] Procedures Procedure Name Priority Date/Time Associated Diagnosis Comments [facility] XF Routine 11/07/2024 9:18 PM CDT 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) BASIC METABOLIC PANEL Routine 11/07/2024 4:08 PM CDT CBC MIXED CELL DIFFERENTIAL Routine 11/07/2024 3:19 PM CDT TELEMETRY REPORT 11/01/2024 1:[address] HEAD WO CONTRAST Stat 10/31/2024 3 :38 PM CDT Postoperative pain POC GLUCOSE Routine 10/30/2024 11:38 AM CDT [facility] NORMAL BLOOD Routine 8:43 AM CDT 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 11/07/2024 9:18 PM CDT [facility] Genetic Diseases Assessed Cancer 11/07/2024 9:18 PM CDT [facility] Description of Ranges of DNA Sequences Examined 523 gene liquid biopsy 11/07/2024 9:18 PM CDT [facility] Overall Interpretation positive 11/07/2024 9:18 PM CDT [facility] [email or web address] 11/07/2024 9:18 PM CDT [facility] Comment:[facility] link Low Coverage Regions BAX, BCR, CARM1, CUL4A, DNMT1, GNA11, MAPK1, MAPK3, MSH3, NFE2L2, NOTCH1, NOTCH2, PHLPP2, PIK3R2, PRKN, PTPRT, RAD51C, RHOA, RXRA, SDHAF2, TERT, TGFBR1, TP53, ZNRF3 11/07/2024 9:18 PM CDT [facility] Tumor Mutational [place] 5.0 m/MB 11/07/2024 9:18 PM CDT [facility] Microsatellite Instability Note MSI-High not detected 11/07/2024 9:18 PM CDT [facility] Treatment Implications Note No reportable treatment options found. 11/07/2024 9:18 PM CDT [facility] Blood specimen (specimen) 10/31/2024 3:39 PM CDT Narrative This result has genomic variants that were not included in this document. Miguelito Reinoso MD MOLECULAR ORDERABLES Final Result [facility] [address] [facility], [address] [place] [address], [facility] [address] [facility], [address] [place] [address] * BASIC METABOLIC PANEL (11/07/2024 4:08 PM CDT) Only the most recent of11 resultswithin the time period is included. Blood Agustin Brown MD CHEMISTRY ORDERABLES Final Resu lt * CBC MIXED CELL DIFFERENTIAL (11/07/2024 3:19 PM CDT) Blood us Agustin Brown MD HEMATOLOGY ORDERABLES Final Res ult * TELEMETRY REPORT (11/01/2024 1:26 PM CDT) us Provider Scanning ECG ORDERABLES Final Result * CT HEAD WO CONTRAST (10/31/2024 3:38 PM CDT) Anatomical Region Laterality Modality Head Computed Tomogra phy 10/31/2024 3:38 PM CDT Impressions 10/31/2024 3:49 PM CDT IMPRESSION: 1. Mild right cerebral subdural hematoma associated with the craniotomy, likely postoperative. DICTATION LOCATION: Location [address] [place] [address] A [employer] Priority Outpt message has been communicated to SAIMA OWENS via the [employer] Critical Results application on 10/31/2024 3:46 PM, Message ID [id number]. Narrative 10/31/2024 3:49 PM CDT Examination: Head [...] mucous retention cysts in the maxillary sinuses. us Saima GALAVIZ CT ORDERABLES Edited Result - Final * (ABNORMAL) POC GLUCOSE (10/30/2024 11:38 AM CDT) Only the most recent of33 resultswithin the time period is included. Pathologist [facility] GLUCOSE POC 137(H) 74 - 99 mg/dL 10/30/2024 11:38 AM CDT [facility] SPECIMEN SOURCE, GLUCOSE POC Whole Blood 10/30/2024 11:38 AM CDT [facility] COMMENT, GLU POC Notified RN/MD 10/30/2024 11:38 AM CDT [facility] Blood, whole 10/30/2024 11:3 8 AM CDT 10/30/2024 11:45 AM CDT Denice Pacheco MD POINT OF CARE TESTING Final Resu lt [facility] CLIA# [id number] [address] [place] [address] * [facility] X[facility] NORMAL BLOOD (10/30/2024 8:43 AM CDT) [facility] 10/30/2024 11:01 PM CDT [facility] Comment:See NGS Report for R esults. Blood specimen (specimen) 10/30/2024 8:43 AM CDT 10/30/2024 8:45 AM CDT Miguelito Reinoso MD MOLECULAR ORDERABLES Final Result [facility] [address] [facility], [address] [place] [address], [facility] [address] [facility], [address] [place] [address] * (ABNORMAL) CBC WITHOUT DIFFERENTIAL (10/29/2024 7:03 AM CDT) [facility] WBC 6.7 4.0 - 9.8 K/uL 10/29/2024 7:[address] [facility] RBC 3.93(L) 4.50 - 5.40 M/uL 10/29/2024 7:43 AM CDT [facility] SERVICES - [facility] HEMOGLOBIN 9.4(L) 13.6 - 16.5 g/dL 10/29/2024 7:43 AM CDT [facility] - [facility] HEMATOCRIT 31.2(L) 40.0 - 48.0 % 10/29/2024 7:43 AM CDT [facility] LABOR[facility]ORY SERVICES - . [facility] MCV 79.4(L) 82.0 - 99.0 fL 10/29/2024 7:43 AM CDT [facility] SERVICES - . [facility] MCH 23.9(L) 27.2 - 32.6 pg 10/29/2024 7:43 AM CDT [facility] LABORATORY SERVICES - . [facility] MCHC 30.1(L) 31.5 - 35.5 g/dL 10/29/2024 7:43 AM CDT [facility] LABORATORY SERVICES - . [facility] PLATELETS 199 140 - 350 K/uL 10/29/2024 7:43 AM T [facility] LABORATORY SERVICES - . [facility] MPV 9.3 9.3 - 12.4 fL 10/29/2024 7:43 AM CDT [facility]OR[facility]ORY SERVICES - [facility] RDW 20.6(H) 11.5 - 14.5 % 10/29/2024 7:43 AM T [facility] LABOR[facility]ORY SERVICES - [facility] RDW-STDEV 55.9(H) 37.1 - 48.7 fL 10/29/2024 7:43 AM T [facility] SERVICES - [facility] Blood Venipuncture / Unknown 10/29/2024 7:03 AM CDT 10/29/2024 7:21 AM CDT us Uyen Boyer DO HEMATOLOGY ORDERABLES Final Result [facility] [facility] [id number] [address] [facility] [address] [id number] * PSA (10/29/2024 7:03 AM CDT) PSA 0.4 <4.0 ng/mL 10/29/2024 1:[address] [facility] Blood Venipuncture / Unknown 10/29/2024 7:03 AM CDT 10/29/2024 7:21 AM CDT [address] [facility] - 10/29/2024 1:39 PM CDT The concentration of PSA in a given specimen, as determined by assays from different manufacturers, can vary because of differences in assay methods and reagent specificity. Values obtained with different assay methods cannot be used interchangeably. The testing method in use is the BIJU Electrochemiluminescence Immunoassay. us Miguelito Reinoso MD CHEMISTRY ORDERABLES Final Result [id number] [address] [place] [address] * MRI BRAIN W WO CONTRAST (10/27/2024 [...] previous exam. DICTATION LOCATION: Location 1 - [facility] Narrative 10/27/2024 10:00 PM CDT EXAMINATION: MRI [...] previous exam. DICTATION LOCATION: Location 1 - [facility] Uyen Boyer DO MR ORDERABLES Final Result * MANUAL DIFFERENTIAL (10/27/2024 3:39 AM CDT) Only the most recent of3 resultswithin the time period is included. PLATELET EST. Consistent w Count 10/27/2024 5:37 AM CDT [facility] SERVICES - [facility] ANISOCYTOSIS 1+ /hpf 10/27/2024 5:37 AM CDT [facility] LABOR[facility]ORY SERVICES - [facility] POIKILOCYTES 1+ /hpf 10/27/2024 5:37 AM CDT [facility] SERVICES - [facility] HYPOCHROMIA 1+ /hpf 10/27/2024 5:37 AM CDT [employer] LABORATORY SERVICES - [facility] OVALOCYTES 1+ /hpf 10/27/2024 5:37 AM CDT [facility] SERVICES - [facility] CRENATED RBCS Present 10/27/2024 5:37 AM CDT [facility] Blood Venipuncture / Unknown 10/27/2024 3:39 AM CDT 10/27/2024 3:42 AM CDT us Chano Sykes MD HEMATOLOGY ORDERABLES COM Fin al Result [facility] [employer] SERVICES - [facility] CLIA# [id number] [address] [place] [address] * (ABNORMAL) CBC WITH DIFFERENTIAL (10/27/2024 3:39 AM CDT) Only the most recent of4 resultswithin the time period is included. WBC 7.4 4.0 - 9.8 K/uL 10/27/2024 4:01 AM T [employer] LABORATORY SERVICES - . [facility] RBC 4.15(L) 4.50 - 5.40 M/uL 10/27/2024 4:01 AM [facility] LABORATORY SERVICES - . [facility] HEMOGLOBIN 9.8(L) 13.6 - 16.5 g/dL 10/27/2024 4:01 AM [facility] LABORATORY SERVICES - . [facility] HEMATOCRIT 32.5(L) 40.0 - 48.0 % 10/27/2024 4:01 AM T [employer] LABORATORY SERVICES - [facility] MCV 78.3(L) 82.0 - 99.0 fL 10/27/2024 4:01 AM T [employer] LABORATORY SERVICES - [facility] MCH 23.6(L) 27.2 - 32.6 pg 10/27/2024 4:01 AM T [facility] LABORATORY SERVICES - [facility] MCHC 30.2(L) 31.5 - 35.5 g/dL 10/27/2024 4:01 AM T [employer] SERVICES - [facility] RDW 20.3(H) 11.5 - 14.5 % 10/27/2024 4:01 AM [employer] LABORATORY SERVICES - [facility] RDW-STDEV 54.5(H) 37.1 - 48.7 fL 10/27/2024 4:01 AM [facility] LABORATORY SERVICES - [facility] PLATELETS 222 140 - 350 K/uL 10/27/2024 4:01 AM [employer] - . [facility] MPV 9.2(L) 9.3 - 12.4 fL 10/27/2024 4:01 AM [place] - [facility] NEUTROPHILS 90 % 10/27/2024 4:01 AM [employer] LABORATORY SERVICES - . [facility] LYMPHOCYTES 3 % 10/27/2024 4:01 AM [facility] - . [facility] MONOCYTES 6 % 10/27/2024 4:01 AM [facility] - . [facility] EOSINOPHILS 0 % 10/27/2024 4:01 AM [facility] - . [facility] BASOPHILS 0 % 10/27/2024 4:01 AM [facility] - . [facility] IMMATURE GRANULOCYTES 1 % 10/27/2024 4:01 AM [facility] - . [facility] Comment:IG (Immature Granulo cyte) count includes Metamyelocytes, Myelocytes, and Promyelocytes NEUTROPHIL ABSOLUTE 6.70 1.90 - 7.00 K/uL 10/27/2024 4:01 AM [facility] - . [facility] LYMPHOCYTE ABSOLUTE 0.19(L) 0.70 - 4.50 K/uL 10/27/2024 4:01 AM [facility] - . [facility] MONOCYTE ABSOLUTE 0.43 0.10 - 1.30 K/uL 10/27/2024 4:01 AM [facility] - . [facility] EOSINOPHIL ABSOLUTE 0.01 0.00 - 0.70 K/uL 10/27/2024 4:01 AM [facility] - . [facility] BASOPHILS ABSOLUTE 0.01 0.00 - 0.20 K/uL 10/27/2024 4:01 AM [facility] - . [facility] IMMATURE GRANULOCYTES ABSOLUTE 0.09(H) 0.00 - 0.03 K/uL 10/27/2024 4:01 AM CDT [facility] LABORATORY [facility] Blood Venipuncture / Unknown 10/27/2024 3:39 AM CDT 10/27/2024 3:42 AM CDT Nicho Petty MD HEMATOLOGY ORDERABLES Final Result [facility] CLIA# [id number] [address] [place] [address] * (ABNORMAL) PHOSPHORUS (10/27/2024 3:39 AM CDT) PHOSPHORUS 1.7(L) 2.5 - 4.5 mg/dL 10/27/2024 4:43 AM CDT [facility] LABORATORY [facility] Blood Venipuncture / Unknown 10/27/2024 3:39 AM CDT 10/27/2024 3:42 AM CDT us Nicho Petty MD CHEMISTRY ORDERABLES Final R esult Performing Organization Address [facility]/ZIP Co de Phone Number [facility] CLIA# [id number] [address] [place] [address] * MAGNESIUM LEVEL (10/27/2024 3:39 AM CDT) MAGNESIUM 2.2 1.6 - 2.4 mg/dL 10/27/2024 4:43 AM CDT [facility] LABORATORY [facility] Blood Venipuncture / Unknown 10/27/2024 3:39 AM CDT 10/27/2024 3:42 AM CDT Nicho Petty MD CHEMISTRY ORDERABLES Final R esult [facility] CLIA# [id number] [address] [place] [address] * (ABNORMAL) HEMOGLOBIN A1C (10/27/2024 3:39 AM CDT) Pathologist [facility] HEMOGLOBIN A1C 6.9(H) <5.7 % 10/27/2024 8:23 AM CDT [facility] LABORATORY [facility] EST. AVG GLUCOSE, A1C 151 mg/dL 10/27/2024 8:[address] [facility] Blood Venipuncture / Unknown 10/27/2024 3:39 AM CDT 10/27/2024 3:[address] [facility] - 10/27/2024 8:23 AM CDT HGB A1C INTERPRETATION NORMAL: <5.7% PRE-DIABETES: 5.7 - 6.4% DIABETES: 6.5% OR GREATER Nicho Petty MD CHEMISTRY ORDERABLES Final R esult Performing Organization Address City/[facility]/ZIP Co de Phone Number [facility] CLIA# [id number] [address] [place] [place], [place] [address] * OSMOLALITY (10/26/2024 3:10 PM CDT) [facility] OSMOLALITY 288 275 - 300 mOsm/kg 10/26/2024 3:[address] [facility] Blood Venipuncture / Unknown 10/26/2024 3:10 PM CDT 10/26/2024 3:16 PM CDT Chano Sykes MD CHEMISTRY ORDERABLES Final Re sult [facility] CLIA# [id number] [address] [place] [address] * SODIUM, RANDOM URINE (10/26/2024 3:05 PM CDT) [facility] SODIUM, URINE 32 mmol/L 10/26/2024 3:[address] [facility] Comment:Reference range not established Urine URINE SPECIMEN OBTAINED BY CLEAN CATCH PROCEDURE / Unknown Collection / Unknown 10/26/2024 3:05 PM CDT 10/26/2024 3:12 PM CDT Chano Sykes MD URINE ORDERABLES Final Result Performing Organization Address [facility]/ZIP Co de Phone Number [facility]# [id number] [address] [place] [address] * OSMOLALITY, URINE (10/26/2024 3:05 PM CDT) OSMOLALITY, URINE 335 50 - 1,200 mOsm/kg 10/26/2024 3:[address] [facility] Urine URINE SPECIMEN OBTAINED BY CLEAN CATCH PROCEDURE / Unknown Collection / Unknown 10/26/2024 3:05 PM CDT 10/26/2024 3:[address] [facility] - 10/26/2024 3:42 PM CDT Reference range: 50-1200 mOsm/kg H2O, depending on fluid intake. Result [facility] Chano Sykes MD URINE ORDERABLES Final Result Performing Organization Address [facility] Co de Phone Number [facility]# [id number] [address] [place] [address] * PATHOLOGY (10/26/2024 8:36 AM CDT) CASE REPORT Surgical Pathology Report Case: [id number] Authorizing Provider: Ad Chang MD Collected: 10/26/2024 08:36 AM Ordering Location: [facility] Received: 10/26/2024 09:48 AM Operating Room Pathologist: Melissa Louis MD Specimen: Brain, right frontal lobe mass 10:[address] [facility] ADDENDUM 1 A request for [employer] was received on 10/31/[address] Miguelito Reinoso. This test was performed on tissue from case [id number]. The case report, slides, and blocks for this case were retrieved from archives. The pathologist reviewed the original pathology report, examined candidate slides, and selected the most appropriate block(A2 and A3). This selected material was forwarded to [facility] where the test was performed. The final report will be issued directly to the requesting physician. 10:23 AM [facility] [employer] [facility] Addendum electronically signed by Melissa Louis MD on 11/05/2024 at 1023 CDT FINAL DIAGNOSIS Brain, right frontal lobe mass, craniotomy with resection (FS1/X): - Metastatic poorly differentiated carcinoma. 10:23 AM [facility] [employer] [facility] at 1621 CDT GROSS DESCRIPTION Received in [...] cassettes A2 and A3. KA 10:23 AM [facility] [employer] [facility] MICROSCOPIC DESCRIPTION The slides are labeled [id number] and Anne Elias. Sections show a metastatic [...] molecular studies/[facility] can be performed on request. 10:23 AM [facility] INTRAOPERATIVE CONSULTATION FS1-Brain, right frontal lobe mass-Malignant neoplasm, defer to permanent. The diagnosis was given to Dr. Chang on his cell phone by Dr. Conner Hernandez. 10:23 AM [facility] OPERATIVE PROCEDURE 1: Craniotomy stereotactic 10:23 AM [facility] CLINICAL INFORMATION 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) [C79.31] 10:23 AM [facility] COMMENT Special stain, immunohistochemical, and/or in situ hybridization results are interpreted with controls that demonstrate appropriate staining reactions. Note on use of immunohistochemistry reagents and in situ hybridization probes: These tests were developed and their performance characteristics determined by [facility], Department of Laboratory Medicine. It has not [...] part or completely in the following laboratories: [facility], [place] #[id number] [address] [place] [address] [facility], [place] #[id number] [address] [place] [address] [facility]/[place], [place] #[id number] [address] [place] [address] This report was created with the [employer] voice-activated dictation system. Inherent to this system is the possibility of syntax, grammar, punctuation and other errors that could impact the interpretation of the report. If there are interpretative questions about aspects of this report, please contact the performing pathologist. 10:23 AM [facility] Tissue ENTIRE BRAIN / Unknown Collection / Unknown 10/26/2024 8:36 AM CDT 10/26/2024 9:48 AM CDT Ad Chang MD PATHOLOGY/CYTOLOGY ORDERABLE S Edited Result - Final [facility] [employer] [facility]# [id number] [address] [place] [address] * POC LACTIC ACID (10/26/2024 7:52 AM CDT) Pathologist [facility] LACTIC ACID POC 1.3 <=2.0 mmol/L 10/26/2024 7:52 AM CDT [facility] - [facility] SPECIMEN SOURCE, GASES POC Arterial 10/26/2024 7:52 AM CDT [facility] COMMENT, GASES POC Responsible Clinical Caregiver notified 10/26/2024 7:52 AM CDT [employer] [facility] Blood 10/26/2024 7:52 AM CDT 10/26/2024 7:53 AM CDT Chano Sykes MD POINT OF CARE TESTING Final R esult Performing Organization Address [facility]/ZIP Co de Phone Number [facility] [employer] [facility] CLIA# [id number] [address] [place] [address] * (ABNORMAL) BLOOD GAS,(INCL. H+H, LYTES, GLUC) (10/26/2024 7:52 AM CDT) Pathologist [facility] PH BLOOD POC 7.45 7.35 - 7.45 10/26/2024 7:52 AM CDT [facility] PCO2 POC 40 35 - 48 mm Hg 10/26/2024 7:52 AM CDT [facility] PO2 POC 168(H) 83 - 108 mm Hg 10/26/2024 7:52 AM CDT [facility] TCO2 (CALC) POC 29(H) 19 - 24 mmol/L 10/26/2024 7:52 AM CDT [facility] HCO3 (CALC) POC 28(H) 22 - 26 mmol/L 10/26/2024 7:52 AM [facility] LABORATORY [facility] O2 SATURATION POC 100(H) 94 - 98 % 10/26/2024 7:52 AM [facility] LABOR[facility] BASE EXCESS POC 4(H) -2 - 3 mmol/L 10/26/2024 7:52 AM [facility] HEMOGLOBIN POC 9.9(L) 13.6 - 16.5 g/dL 10/26/2024 7:52 AM [facility] LAB[facility]ORY [facility] HEMATOCRIT POC 30(L) 40 - 48 % 10/26/2024 7:52 AM [facility] Comment:Estimated Value GLUCOSE POC 89 74 - 99 mg/dL 10/26/2024 7:52 AM [facility] SODIUM POC 132(L) 136 - 145 mmol/L 10/26/2024 7:52 AM [facility] POTASSIUM POC 4.5 3.5 - 5.0 mmol/L 10/26/2024 7:52 AM [facility] LAB[facility] CHLORIDE POC 102 98 - 107 mmol/L 10/26/2024 7:52 AM [facility] CALCIUM IONIZED POC 4.6(L) 4.7 - 5.1 mg/dL 10/26/2024 7:52 AM [facility] PH TEMP CORRECT 7.45 7.35 - 7.45 10/26/2024 7:52 AM [facility] PCO2 TEMP CORRECT 40 35 - 48 mm Hg 10/26/2024 7:52 AM [facility] PO2 TEMP CORRECT 168(H) 83 - 108 mm Hg 10/26/2024 7:52 AM [facility] SPECIMEN SOURCE, GASES POC Arterial 10/26/2024 7:52 AM [facility] PATIENT'S TEMPERATURE POC 37.0 degrees 10/26/2024 7:52 AM [facility] COMMENT, GASES POC Responsible Clinical Caregiver notified 10/26/2024 7:[address] [facility] Blood, arterial 10/26/2024 7 :52 AM CDT 10/26/2024 7:53 AM CDT Result [facility] Chano Sykes MD ABG ORDERABLES Final Result [facility]# [id number] [address] [place] [address] * [place] ANES INSERT CATH, ART, PERCUT, SHORTTERM (10/26/2024 [...] size: 20 G Catheter Length (in.): 4.5 [place] Identification: ultrasound guided Number of attempts: 1 Successful placement: yes Assessment: blood return through port Post-procedure: line secured and dressing applied Joseph Quijano MD PROCEDURE/MINOR SURGICAL ORDERAB LES Final Result * [place] ANES INSERT ENDOTRACHEAL AIRWAY (10/26/2024 7:12 AM CDT) Narrative Meenu Dick AA-C - 10/26/2024 7:12 AM CDT Meenu Dick AA-C 10/26/2024 8:16 AM Airway Date/Time: 10/26/2024 7:12 AM Location: OR Plan: routine intubation Patient Identity Confirmed by: Verbally with patient and armband Airway: not difficult Staffing Performed: Student NA/AA Authorized by: Joseph Quijano MD Performed by: Meenu Dick, KEMALC Indications and Patient Condition: Indications for Airway [...] Additional Procedure Information: atraumatic and dentition unchanged Joseph Quijano MD PROCEDURE/MINOR SURGICAL ORDERAB LES Edited Result - Final * (ABNORMAL) COMPREHENSIVE METABOLIC PANEL (10/26/2024 6:13 AM CDT) Only the most recent of5 resultswithin the time period is included. SODIUM 136 136 - 145 mmol/L 10/26/2024 7:17 AM T [facility] POTASSIUM 4.5 3.5 - 5.0 mmol/L 10/26/2024 7:17 AM T [facility] - [facility] CHLORIDE 98 98 - 107 mmol/L 10/26/2024 7:17 AM T [facility] - [facility] CO2 27 22 - 29 mmol/L 10/26/2024 7:17 AM T [facility] - [facility] CALCIUM 8.8 8.6 - 10.2 mg/dL 10/26/2024 7:17 AM T [facility] - [facility] BUN 19 8 - 23 mg/dL 10/26/2024 7:17 AM T [facility] - [facility] CREATININE 0.54(L) 0.67 - 1.17 mg/dL 10/26/2024 7:17 AM [facility] Comment:The GFR result is no t clinically significant on patients <18 or >70 years of age. GLUCOSE 148(H) 74 - 99 mg/dL 10/26/2024 7:17 AM [facility] TOTAL PROTEIN 6.0(L) 6.7 - 8.6 g/dL 10/26/2024 7:17 AM [facility] ALBUMIN 3.3(L) 3.5 - 5.2 g/dL 10/26/2024 7:17 AM [facility] BILIRUBIN TOTAL 0.4 0.2 - 1.1 mg/dL 10/26/2024 7:17 AM [facility] ALKALINE PHOSPHATASE 81 40 - 129 U/L 10/26/2024 7:17 AM [facility] AST 17 <41 U/L 10/26/2024 7:17 AM [facility] ALT 31 <42 U/L 10/26/2024 7:17 AM [facility] GFR >60 mL/min/1.7 3 sq meter 10/26/2024 7:17 AM [facility] Comment:eGFR calculated with 2020 CKD-EPI equation. Vegetarian diet, extremely high or low muscle mass, and may affect results. Cystatin C with Glomerular Filtration Rate is a suitable alternative for these patients. ANION GAP 11 8 - 16 mmol/L 10/26/2024 7:17 AM [facility] Blood Venipuncture / Unknown 10/26/2024 6:13 AM CDT 10/26/2024 6:20 AM [facility] Narrative [facility] - 10/26/2024 7:17 AM [facility] Samples containing indocyanine green cause interferences on Total and/or Direct Bilirubin and must not be measured. us Ad Chang MD CHEMISTRY ORDERABLES Final R esult [id number] [address] [place] [address] * VERIFICATION BLOOD GROUP (10/25/2024 2:44 PM CDT) ABO GROUP A 10/25/2024 3:44 PM CDT [facility] LABORATORY SERVICES -- [facility] RH (D) TYPE Positive 10/25/2024 3:44 PM CDT [facility] LABORATORY SERVICES -- [facility] Blood Venipuncture / Unknown 10/25/2024 2:44 PM CDT 10/25/2024 2:52 PM CDT Yi Farmer MD BLOOD BANK ORDERABLES Final Result [facility] LABORATORY SERVICES -- [facility] CLIA# [id number] [address] [place] [address] * (ABNORMAL) PTT (10/25/2024 1:01 PM CDT) Pathologist [facility] PTT 23.9(L) 24.4 - 36.4 seconds 10/25/2024 1:27 PM CDT [facility] LABORATORY SERVICES - [facility] Comment: PTT Therapeutic Range: Heparin Level PTT (seconds) <0.10 units/mL <55.8 0.10 - 0.30 units/mL 55.8 - 74.3 0.30 - 0.70 units/mL* 74.3 - 111.2* 0.70 - 1.00 units/mL 111.2 - 138.9 *corresponds to therapeutic range for unfractionated heparin Blood Venipuncture / Unknown 10/25/2024 1:01 PM CDT 10/25/2024 1:06 PM CDT Shahnaz GALAVIZ HEMATOLOGY ORDERABLES Final Result [facility] [employer] [facility] CLIA# [id number] [address] [place] [address] * PROTIME-INR (10/25/2024 1:01 PM CDT) PROTIME 14.4 12.7 - 15.1 Seconds 10/25/2024 1:27 PM CDT [facility] LABORATORY [facility] INR 1.1 0.9 - 1.1 10/25/2024 1:27 PM CDT [facility] LABORATORY SERVICES - [facility] Blood Venipuncture / Unknown 10/25/2024 1:01 PM CDT 10/25/2024 1:06 PM CDT Narrative [facility] LAB[facility]ATORY SERVICES - [facility] - 10/25/2024 1:27 PM CDT INR Therapeutic Range: Adult: 2.0 - 3.0 for pulmonary embolism or prophylaxis against venous thrombosis or systemic embolization. 2.0 - 3.0 for patients with tissue heart valves. 2.5 - 3.5 for patients with mechanical heart valves or post [place]. Pediatric (12 years and under): 1.5 - 3.0 Although the target range in children is not well established, INR values of 1.5 - 3.0 are recommended for most patients. Higher values have been used in children with prosthetic cardiac valves and hereditary clotting disorders. (<3 days) therapeutic ranges have not been established. Shahnaz GALAVIZ HEMATOLOGY ORDERABLES Final Result [facility] LABORATORY [facility]# [id number] [address] [facility] [place] [place] [address] * TYPE AND SCREEN (10/25/2024 1:01 PM CDT) ABO GROUP A 10/25/2024 2:08 PM CDT [facility] LABORATORY [facility] -- [facility] RH (D) TYPE Positive 10/25/2024 2:08 PM CDT [facility] LABORATORY SERVICES -- [facility] ANTIBODY SCREEN Negative 10/25/2024 2:08 PM CDT [facility] LABORATORY SERVICES -- [facility] Blood Venipuncture / Unknown 10/25/2024 1:01 PM CDT 10/25/2024 1:06 PM CDT us Shahnaz GALAVIZ BLOOD BANK ORDERABLES Edited Result - Final Performing Organization Address City/State/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: [id number] : 1945 Requested By: ZOYA VARGAS Order Number: [id number] Reyna MD: Mabel Rosales Measurements Intervals [place] Rate: 73 P: 32 WY: 181 QRS: 40 QRSD: 106 T: 51 QT: 374 QTc: 412 Interpretive Statements SINUS RHYTHM WITH SINUS ARRHYTHMIA Electronically Signed On 10-26-2024 1:24:14 CDT by Mabel Rosales Procedure Note Mabel Rosales MD - 10/26/2024 [facility] [address] [place] [address] Test Date: 2024-10-25 Pat Name: ANNE ELIAS Department: 58 Room: [address] [place] [address] Gender: Male Scroll Shear Operator: [id number] : 1945 Requested By: ZOYA VARGAS Order Number: [id number] Reading MD: Mabel Rosales Measurements Intervals [place] Rate: 73 P: 32 WY: 181 QRS: 40 QRSD: 106 T: 51 [...] is a differential consideration. DICTATION LOCATION: Location [address] [place] [address] 10/25/2024 8:23 AM CDT EXAMINATION: CT CHEST [...] differential consideration. DICTATION LOCATION: Location 1 - [facility] Saima GALAVIZ CT ORDERABLES Final Result * (ABNORMAL) URINALYSIS WITH REFLEX MICROSCOPIC (10/24/2024 1:18 PM CDT) COLOR UA Yellow Pale to Dark Yellow 10/24/2024 1:32 PM CDT [facility] - [facility] CLARITY UA Slightly Cloudy(A) Clear 10/24/2024 1:32 PM CDT [facility] - [facility] SPECIFIC GRAVITY UA 1.020 1.003 - 1.035 10/24/2024 1:32 PM CDT [facility]ORY [facility] - . [facility] PH UA 6.0 5.0 - 8.0 10/24/2024 1:32 PM CDT [facility] - . [facility] LEUKOCYTE ESTERASE UA Negative Negative 10/24/2024 1:32 PM CDT [facility] - [facility] NITRITE UA Negative Negative 10/24/2024 1:32 PM CDT [facility] - . [facility] PROTEIN UA 1+(A) Negative 10/24/2024 1:32 PM CDT [facility] - [facility] GLUCOSE UA Negative Negative 10/24/2024 1:32 PM CDT [facility] - . [facility] KETONES UA Negative Negative 10/24/2024 1:32 PM CDT [facility] LABORATORY [facility] UROBILINOGEN UA Normal <2.0 mg/dL 1:32 PM T [facility] BILIRUBIN UA Negative Negative 10/24/2024 1:32 PM CDT [facility] LABORATORY [facility] BLOOD UA Negative Negative 10/24/2024 1:32 PM T [facility] LAB[facility] Comment:Ascorbic acid may ca use false negative results for blood. A microscopic review was reflexed to rule out this interference. WBC UA 0-2 0 - 2 /hpf 10/24/2024 1:32 PM CDT [facility] LABORATORY [facility] RBC UA 0-2 0 - 2 /hpf 10/24/2024 1:32 PM CDT [facility] LAB[facility] BACTERIA UA Negative Negative /hpf 10/24/2024 1:32 PM CDT [facility] LAB[facility] EPITHELIAL CELLS, URINE 0-5 0 - 5 /hpf 10/24/2024 1:[address] [facility] Ascorbic Acid UA Positive(A) Negative 025 1:[address] [facility] Urine URINE SPECIMEN OBTAINED BY CLEAN CATCH PROCEDURE / Unknown Collection / Unknown 10/24/2024 1:18 PM CDT 10/24/2024 1:22 PM CDT Saima GALAVIZ URINE ORDERABLES Final Result [facility]# [id number] [address] [place] [address] * (ABNORMAL) VITAMIN B12 AND FOLATE (10/24/2024 6:15 AM CDT) VITAMIN B12 >2,000(H) 232 - 1,245 pg/mL 10/24/2024 7:20 AM CDT [facility] [employer] [facility] Comment:It has been reported that between 5 to 10% of patients with values between 200 and 400 pg/mL may experience neuropsychiatric and hematologic abnormalities due to occult B12 deficiency. Less than 1% of patients with values above 400 pg/mL will have symptoms. FOLATE, SERUM 12.3 >4.5 ng/mL 10/24/2024 7:20 AM CDT [facility] LAB[facility]ORY [facility] Blood Venipuncture / Unknown 10/24/2024 6:15 AM CDT 10/24/2024 6:27 AM CDT Karen Couch MD CHEMISTRY ORDERABLES Final Result [facility] CLIA# [id number] [address] [id number] * (ABNORMAL) IRON, TIBC, AND PERCENT SATURATION (10/23/2024 8:41 PM CDT) IRON 46(L) 59 - 158 ug/dL 10/24/2024 7:14 AM CDT [facility] LAB[facility]ORY [facility] TIBC 250 250 - 450 ug/dL 10/24/2024 7:14 AM T [facility] IRON % SATURATION 18(L) 20 - 50 % 10/24/2024 7:14 AM T [facility] TRANSFERRIN 197(L) 200 - 360 mg/dL 10/24/2024 7:14 AM T [facility] Blood Venipuncture / Unknown 10/23/2024 8:41 PM CDT 10/23/2024 8:51 PM CDT Karen Couch MD CHEMISTRY ORDERABLES Final Result [facility] CLIA# [id number] [address] [place] [id number] * (ABNORMAL) FERRITIN (10/23/2024 8:41 PM CDT) FERRITIN 764.0(H) 30.0 - 400.0 ng/mL 10/24/2024 7:14 AM CDT [facility] [employer] [facility] Blood Venipuncture / Unknown 10/23/2024 8:41 PM CDT 10/23/2024 8:51 PM CDT Karen Couch MD CHEMISTRY ORDERABLES Final Result [facility] [employer] [facility] CLIA# [id number] [address] [facility] [address] [place], [address] [address] * Critical Care (10/23/2024 7:45 PM CDT) [...] or life-threatening deterioration of the following conditions: RD SCIENTIST failure or compromise Critical care was time [...] Res ult from Last 3 Months Insurance [facility] [employer] Medicare Part D RX AG PLANS (INTERNAL) [facility] Advance Directives For more information, please contact: [phone] * Full Code (Latest Code Status on [...] 10:21 PM 10/24/2024 8:03 AM Care Teams Kiln Fire[employer] Helper Relationship Specialty Start Date End Date Chaka Colin MD [address] [address] [place] [address] PCP - General Family Practice 08/09/24
--- OUTSIDE RECORDS SUMMARY | 2024-11-12 11:45 | XMS_ITS | Clinical Summary ---
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
--- OUTSIDE RECORDS SUMMARY | 2024-11-12 11:45 | XMS_ITS | Encounter Summary ---
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 [facility] [address] [place] [address] 11/13/2024 2:30 PM CDT Hospital Encounter [facility] MRI [address] [place] [address] Jono Edouard MD [address] [facility] [address] [place] [address] 11/14/2024 4:30 PM CDT Telephone Check Up [facility]ematology - [place] [address] [facility] [address] [place] [address] Agustin Brown MD [address] [facility] [address] [place] [address] 01/18/2025 12:45 PM CDT Appointment [facility] Medicine MRI [address] [facility] [address] [place] [address] Dianna Reid PA [address] [facility] [address] [place] [address] 01/21/2025 1:00 PM CDT Office Visit [facility] Neurosurgery - Medical [place] [address] [facility] [address] [place] [address] Ad Chang MD [address] [facility] [address] [address] -x0 (Work) documented as of this encounter Procedures Procedure Name Priority Date/Time Associated Diagnosis Comments BASIC METABOLIC PANEL Routine 11/07/2024 4:08 PM CDT CBC MIXED CELL DIFFERENTIAL Routine 11/07/2024 3:19 PM CDT documented in this encounter Results * BASIC METABOLIC PANEL (11/07/2024 4:08 PM CDT) Blood us Agustin Brown MD CHEMISTRY ORDERABLES Final Resu lt * CBC MIXED CELL DIFFERENTIAL (11/07/2024 3:19 PM CDT) Blood us Agustin Brown MD HEMATOLOGY ORDERABLES Final Res ult documented in this encounter Visit Diagnoses Not on filedocumented in this encounter Care Teams Scrummaster Relationship Specialty Start Date End Date Chaka Colin MD [address] [facility] [place] [address] PCP - General Family Practice 08/09/24 documented as of this encounter
[2024-11-12 13:04] LABS: Anion Gap 7 mmol/L (4-12); Blood Urea Nitrogen 9 mg/dL (9-20); Calcium 8.2 mg/dL (8.4-10.2); Carbon Dioxide 30 mmol/L (22-30); Chloride 99 mmol/L (98-107); Estimated Glomerular Filt Rate > 60; Glucose 146 mg/dL (65-110); Potassium 3.5 mmol/L (3.4-5.0); Sodium 136 mmol/L (137-145)
== END 2024-11-12 10:49 | disposition home or self-care (01) ==
LOC: ANHGOSHLAB 10:49
PROVIDERS: PCP Family Medicine; Visit Provider Family Medicine
DX: E87.1 Hypo-osmolality and hyponatremia (principal)
CPT/HCPCS: 36415; 80048

== ENCOUNTER 2024-11-15 16:57 | Inpatient (IN) | payer OTHER, SELFPAY ==
[2024-11-15] VITALS (11 sets, daily range): BP systolic 114–125; BP diastolic 63–79; PULSE 81–106; RESP 20–34; TEMP 36.8–38.1; O2SAT 74–100; BMI 27.0
--- NOTE | ~2024-11-15 | US_ITS ---
EXAMINATION: US thoracentesis DATE: 11/16/2024 15:43 INDICATION: Left pleural effusion TECHNIQUE: The procedure and its risks and benefits were discussed with the patient. Potential risks discussed included bleeding, infection, and pneumothorax. The patient understood the risks and agreed to proceed. The skin was prepped and draped in sterile fashion. 1% lidocaine was used for local anes thesia. Under ultrasound guidance, a 5 Fr catheter with trochar was advanced into the left pleural ef fusion. Fluid was aspirated. The catheter was removed, and a dressing was applied. There were no imme diate complications. FINDINGS: Ultrasound images demonstrate a left pleural effusion and the catheter within the fluid. IMPRESSION: 1. Successful ultrasound-guided thoracentesis yielding 1100 mL of dark reddish fluid. Reviewed, dictated and finalized at location A.
--- NOTE | ~2024-11-15 | CT_ITS ---
EXAMINATION: CTA chest PE protocol DATE: 11/15/2024 19:35 CDT INDICATION: Hypoxia. Pulmonary embolus suspected clinically TECHNIQUE: Computed tomographic angiography (CTA) of the chest was performed with 100 mL Omnipaque-35 0 intravenous contrast. The dose-length product was 438.87 mGy-cm. Maximum intensity projection 3D-re constructions of the aorta and other arteries were constructed by the technologist on a separate work station. COMPARISON: Reference is made to a CT examination of the chest dated 08/02/2024 FINDINGS/OBSERVATIONS: PULMONARY ARTERIES: No filling defect is identified within the main or proximal pulmonary artery. The main pulmonary artery is not enlarged. THORACIC AORTA: No aneurysmal dilatation or dissection is present. The great vessels are intact LUNGS: Redemonstration of a spiculated mass within the right upper lobe. Redemonstration of a large mass at the left hilum, unchanged from prior. Interval development of a large left-sided pleural effusion, likely contributing to patient's hypoxia . MEDIASTINUM: No morphologically suspicious or pathologically enlarged lymph nodes are identified with in the mediastinum or bilateral axilla. BONES OF THE CHEST: No acute fracture. There are bridging endplate osteophytes at multiple levels in the spine, consistent with diffuse idio pathic skeletal hyperostosis (DISH). No lytic or blastic lesions. HEART: The heart is of normal size, without pericardial effusion. IMPRESSION: No pulmonary embolus. No thoracic aortic dissection. 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 Interval development of a large left-sided pleural effusion, likely contributing to patient's hypoxia as this is an interval change from 08/02/2024 examination. Reviewed, dictated and finalized at location A. IMPRESSION: No pulmonary embolus. No thoracic aortic dissection. 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 Interval development of a large left-sided pleural effusion, likely contributin g to patient's hypoxia as this is an interval change from 08/02/2024 examination .
--- NOTE | ~2024-11-15 | XR_ITS ---
CHEST RADIOGRAPH CLINICAL HISTORY: shortness of breath . COMPARISON: 09/17/2024 TECHNIQUE: Single portable view of the chest. FINDINGS Right internal jugular central venous port catheter identified with its tip projecting over the cavoa trial junction. The apex of the catheter is not visualized on the submitted images, likely secondary to its high acce ss site. The remainder of the cardiomediastinal silhouette is obscured. Redemonstration of a large left-sided pleural effusion with adjacent consolidation. Patchy opacification of the right hilum is noted. IMPRESSION: Redemonstration of a large left-sided pleural effusion with adjacent consolidation. Right hilar infiltrate is also suspected. Reviewed, dictated and finalized at location A. IMPRESSION: Redemonstration of a large left-sided pleural effusion with adjacent consolidat ion. Right hilar infiltrate is also suspected.
--- NOTE | ~2024-11-15 | XR_ITS ---
CHEST RADIOGRAPH, PA AND LATERAL CLINICAL HISTORY: Post thoracentesis pleural effusion . COMPARISON: 11/15/2024 TECHNIQUE: PA and lateral views of the chest. FINDINGS Right internal jugular central venous port catheter identified with its tip projecting over the cavoa trial junction. The remainder of the cardiomediastinal silhouette is otherwise unremarkable. Blunting of the right costophrenic sulcus suggesting a small right-sided pleural effusion. Decreased left-sided pleural effusion when compared with previous examination performed less than 24 hours earlier. IMPRESSION: Decreased left-sided pleural effusion without left-sided pneumothorax following left-sided thoracente sis. Persistent small right-sided pleural effusion is noted. Reviewed, dictated and finalized at location A. IMPRESSION: Decreased left-sided pleural effusion without left-sided pneumothorax following left-sided thoracentesis. Persistent small right-sided pleural effusion is noted.
--- NOTE | ~2024-11-15 | XR_ITS ---
XR chest 1V portable 11/18/2024 13:17 Indication: Left pleural effusion. Procedure: AP portable chest Comparison: Comparison to multiple prior studies sequentially, with oldest reviewed study dated 2024. Findings: Moderate left pleural effusion. Portacatheter tip in the SVC. No pneumothorax. Bilateral ai rspace disease is present which may represent edema or pneumonia. There is left apical pleural cappin g. No acute osseous abnormality. Impression: 1: Bilateral airspace disease may represent edema or pneumonia. 2: Moderate left pleural effusion, possibly loculated. Reviewed, dictated and finalized at location A. Impression: 1: Bilateral airspace disease may represent edema or pneumonia. 2: Moderate left pleural effusion, possibly loculated.
--- NOTE | ~2024-11-15 | XR_ITS ---
EXAMINATION: XR chest 1V portable DATE: 11/17/2024 05:50 INDICATION: Left pleural effusion TECHNIQUE: frontal view of the chest was obtained. COMPARISON: Chest radiograph dated 11/15/24 FINDINGS: Persistent airspace opacities in the left mid to lower lung zone with some improved aeration in the l ower lung zone. Additional more mild opacities in the right mid and lower lung zone appear unchanged. Small left pleural effusion. No pneumothorax. Heart size is normal. Right internal jugular central v enous port catheter with distal tip at the superior cavoatrial junction. IMPRESSION: 1. Opacities in the bilateral mid and lower lung zones, left greater than right which could represent atelectasis and/or pneumonia with some improvement in the left lower lung zone. 2. Small left pleural effusion. Reviewed, dictated and finalized at location A. IMPRESSION: 1. Opacities in the bilateral mid and lower lung zones, left greater than right which could represent atelectasis and/or pneumonia with some improvement in th e left lower lung zone. 2. Small left pleural effusion.
--- OUTSIDE RECORDS SUMMARY | 2024-11-15 16:59 | XMS_ITS | Encounter Summary ---
Author Organization [facility] Address [address] [place] [address] Care Team Providers Care Mortgage Manager Name Role Phone Almas Stapleton MD Unavailable [phone] Alejandro Kellogg DO Primary Care Provider [phone] Encounter Details Date Type Department Care Team (Late st Contact Info) Description 08/13/2024 Lab Requisition [facility] - Pathology Lab [address] [place] [address] Preston Rowland MD [address] [address] Illness, unspecified Social History Tobacco Use Types Packs/Day Years Used Date Smoking Tobacco: Former Cigarettes 1 25 0 07/11/1971 - 07/11/1996 Smokeless Tobacco: Never Alcohol Use Standard Drinks/Week Comments Yes 22.5 (1 standard drink = 0.6 oz pure alcohol) 2 drinks/day Sex and Gender Information Value Date Recorded Sex Assigned at Not on file 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 Gender Identity Not on file Sexual Orientation Not on file documented as of this encounter Plan of Treatment Pending Results Name Type Priority Associated Diagnoses Date /Time SLIDE PREP HISTOLOGY Pathology Cytology Routine Illness, unspecified 08/10/2024 documented as of this encounter Visit Diagnoses Diagnosis Illness, unspecified documented in this encounter Care Teams Mortgage Manager Relationship Specialty Start Date End Date Alejandro Kellogg DO [facility] [place] [address] PCP - General 02/23/22 Almas Stapleton MD Orthopedic Surgery 09/01/11 documented as of this encounter
--- OUTSIDE RECORDS SUMMARY | 2024-11-15 16:59 | XMS_ITS | Encounter Summary ---
Author Organization [facility] Address [address] [place] [address] Care Team Providers Care Manager Infusion Name Role Phone Almas Stapleton MD Unavailable [phone] Alejandro Kellogg DO Primary Care Provider [phone] Encounter Details Date Type Department Care Team (Late st Contact Info) Description 08/16/2024 Lab Requisition [facility] - Pathology Lab [address] [place] [address] Preston Rowland MD [address] [address] Illness, unspecified Social History Tobacco Use Types Packs/Day Years Used Date Smoking Tobacco: Former Cigarettes 1 25 0 07/11/1971 - 07/11/1996 Smokeless Tobacco: Never Alcohol Use Standard Drinks/Week Comments Yes 22.5 (1 standard drink = 0.6 oz pure alcohol) 2 drinks/day Sex and Gender Information Value Date Recorded Sex Assigned at Not on file 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 Gender Identity Not on file Sexual Orientation Not on file documented as of this encounter Plan of Treatment Pending Results Name Type Priority Associated Diagnoses Date /Time SLIDE PREP HISTOLOGY Pathology Cytology Routine Illness, unspecified 08/10/2024 documented as of this encounter Visit Diagnoses Diagnosis Illness, unspecified documented in this encounter Care Teams Manager Infusion Relationship Specialty Start Date End Date Alejandro Kellogg DO [facility] [place] [address] PCP - General 02/23/22 Almas Stapleton MD Orthopedic Surgery 09/01/11 documented as of this encounter
--- OUTSIDE RECORDS SUMMARY | 2024-11-15 16:59 | XMS_ITS ---
Author Organization [facility] Address [address] [place] [address] Care Team Providers Care River Transportation Worker Name Role Phone Chaka Colin MD Primary [...]
--- OUTSIDE RECORDS SUMMARY | 2024-11-15 16:59 | XMS_ITS | Clinical Summary ---
Author Organization [facility] Address [address] [facility] [place] [address] Care Team Providers Care Axle Inspector Name Role Phone Almas Stapleton MD Unavailable [phone] Alejandro Kellogg DO Primary Care Provider [phone] Source Comments [facility],non-owned Affiliates and Associated Physician Practices is amultiple site organization consisting of ambulatory clinics and hospital sitesin [place], [place], [place] and [place]. This disclosure is being madepursuant to the Care Everywhere program and may not contain all information available regarding this patient. 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 Gender Identity Not on file Sexual Orientation Not on file Last Filed Vital Signs Vital Sign Reading Time Taken Comments Blood Pressure 117/74 09/04/2012 6:06 AM COMMUNITY CENTER COORDINATOR Pulse 78 09/04/2012 6:06 AM COMMUNITY CENTER COORDINATOR Temperature 36.9 C (98.4 F) 09/04/2012 6:06 AM COMMUNITY CENTER COORDINATOR Respiratory Rate 18 09/04/2012 6:06 AM COMMUNITY CENTER COORDINATOR Oxygen Saturation 98% 09/04/2012 6:06 AM COMMUNITY CENTER COORDINATOR Inhaled Oxygen Concentration - - Weight 88.4 kg (194 lb 12.8 oz) 09/01/2012 7:04 AM COMMUNITY CENTER COORDINATOR Height 175.3 cm (5' 9 ) 09/01/2012 7:04 AM COMMUNITY CENTER COORDINATOR Body Mass Index 28.77 09/01/2012 7:04 AM COMMUNITY CENTER COORDINATOR Plan of Treatment Health Maintenance Due Date [...] this topic Insurance [employer] ADV PPO [facility] Address: [address] [address] [employer] MEDICARE [employer]ENCE MED[employer]ARE [employer] Advance Directives Documents on File Type Date Recorded Patient Territory Representative Expl anation Adv Directive/Living Will/POA 08/16/2011 11:00 AM * FULL RESUSCITATION (Latest Code Status on File) Date Activated Date Inactivated Comments 09/01/2012 11:08 AM 09/04/2012 12:46 PM * FULL RESUSCITATION Date Activated Date Inactivated Comments 08/12/2011 1:57 PM 08/15/2011 11:27 PM Care Teams Axle Inspector Relationship Specialty Start Date End Date Alejandro Kellogg DO [address] [place] [address] PCP - General 02/23/22 Almas Stapleton MD Orthopedic Surgery 09/01/11
--- OUTSIDE RECORDS SUMMARY | 2024-11-15 17:00 | XMS_ITS | Encounter Summary ---
Author Organization [facility] [employer] [facility] Address [address] [place] [address] Care Team Providers Care Disability Insurance Hearing Officer Name Role Phone Chaka Colin MD Primary Care Provider Encounter Details Date Type Department Care Team (Late st Contact Info) Description 11/12/2024 Orders Only [facility] Oncology and Hematology - [place] [address] [facility] [address] [place] [address] Agustin Brown MD [address] 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 [address] [place] [address] 01/18/2025 12:45 PM CDT Appointment [facility] Medicine MRI [address] [facility] [address] [place] [address] Dianna Reid PA [address] [facility] [address] [place] [address] 01/21/2025 1:00 PM CDT Office Visit [facility] Neurosurgery - Medical [place] [address] [facility] [address] [place] [address] Ad Chang MD [address] [facility] [address] [address] -x0 (Work) documented as of this encounter Visit Diagnoses Diagnosis Prostate cancer (CMS/HCC) Malignant neoplasm of prostate documented in this encounter Care Teams Disability Insurance Hearing Officer Relationship Specialty Start Date End Date Chaka Colin MD [facility] [facility] [place] [address] PCP - General Family Practice 08/09/24 documented as of this encounter
--- OUTSIDE RECORDS SUMMARY | 2024-11-15 17:00 | XMS_ITS | Continuity of Care Document ---
Author Organization [facility] Address [address] [facility] [address] [place] [address] Phone Care Team Providers Care Enterprise Account Manager Name Role Phone Ambriz Katelynn BURGESS Unavailable [...] Diagnoses Date Provider Providers Copied on Encounter [facility], [address] [address], [place], [place], [id number], tel:[phone] [place] No Information [address] Ambriz Katelynn. [address] [facility], [address], [address], [place]. tel: [phone] [facility], [address] [address], [place], [place], [id number], tel:[phone] [place] No Information November-0 1-201 3 Ambriz Katelynn. [address] [place] [address], [address], [place], [facility], . tel: [phone] Referring Provider: Moises Phillip [address] [address], [place], [place], [facility]. tel:[phone] [place], [place] [address], [place], [place], [id number], tel:[phone] [place] No Information Oct-2 9-201 3 Ambriz Katelynn. [address] [place] [address], [address], [place], [facility], . tel: [phone] Referring Provider: Moises Phillip [address] [address], [place], [place], [facility]. tel:[phone] [place] [address], [place], [place], [id number], tel:[phone] [place] No Information Oct-2 4-201 3 Ambriz Katelynn. [address] [place] [address], [address], [place], [facility], . tel: [phone] Referring Provider: Moises Phillip [address] [address], [place], [place], [facility]. tel:[phone] [facility] [address] [facility] [address], [place], [id number], tel:[phone] [place] No Information Oct-2 2-201 3 Ambriz Katelynn. [address] [place] [address], [address], [place], [facility], . tel: [phone] Referring Provider: Moises Phillip [address], [facility]. tel:[phone] [facility], [address] [place], [place] [address], [place], [place], [id number], tel:[phone] [place] No Information Oct-1 8-201 3 Ambriz Katelynn. [address] [place] [address] Drive, [address], [place], [place], [facility], . tel:[phone] Referring Provider: Moises Phillip [facility] [address], [place], [address]. tel:[phone] [facility] [place], [address] [facility] [address], [place], [place], [id number], [place] tel:[phone] [place] Pain in joint involving lower leg Apr-1 6-201 3 Pb Pace. [address] [facility], [address], [place], [place], [facility], . tel:[phone] Referring Provider: Moises Phillip [facility] [address], [place], [address]. tel:[phone] Family History Family Member Type Diagnosis Age At Onset No Information Payers Payer name Insurance type Covered democrat ID Maeve morris(s) [employer] CI [id number] Social History Type Description Quantity Date Captured [...]
--- OUTSIDE RECORDS SUMMARY | 2024-11-15 17:00 | XMS_ITS | Referral Summary ---
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
--- OUTSIDE RECORDS SUMMARY | 2024-11-15 17:00 | XMS_ITS | Continuity of Care Document ---
Author Organization [facility] [place] [address] Ceja [address] [place] [address] Phone Care Team Providers Care Hog Feeder Name Role Phone Wilian Martinez ODssica Unavailable [...] Copied on Encounter Office/outpa tient Visit, Est [facility], [facility], [address], [place], [place], [address], [place] tel:[phone] SEC Berny ROSALES Professional 6 month IOL check (chief complaint) PrediabetesOt her secondary cataract, bilateralPres ence of intraocular lensVitreous degeneration, right eye 4 Juan OD Radha. [address], [address], [place], [place], [address], [place]. tel:[phone] Referring Provider: Carly Guzman, [id number] [place] [address] [address], [place], [address] . tel:[phone] [facility], [address], [place], [place], [address], [place] tel:[phone] SEC Berny ROSALES Professional 2 Week CE/IOL Symfony/Tor ic PO (chief complaint) Post op visit 4 Juan Cedenossica. [address], [address], [place], [place], [address], [place]. tel:[phone] Referring Provider: Carly Guzman, [facility] [address], [place], [address] . tel:[phone] [facility], [address], [place], [place], [address], [place] tel:[phone] SEC Berny ROSALES Professional Post-Op (chief complaint) Post op visit 3 Isabel Carroll. [address], [address], [place], [place], [address], [place]. tel:[phone] Referring Provider: Carly Guzman, [address], [place], [address] . tel:[phone] [facility], [address], [place], [place], [address], [place] tel:[phone] [place] [facility] [place] No Information 3 Horacio Rivera. [address], [address], [place], [place], [address], [place]. tel:[phone] Referring Provider: Carly Guzman, [id number] [place] [address] [address], [place], [address] . tel:[phone] [facility], [address], [place], [place], [address], tel:[phone] SEC Berny ROSALES Professional 2 Week CE/IOL Symfony Toric PO (chief complaint) Post op visit Nov 0- 3 Isabel Carroll. [address] [place] [address] [employer] [address], [address], [place], [place], [address], [place]. tel:[phone] Referring Provider: Carly Guzman, [facility] [address], [place], [address] . tel:[phone] [facility], [address], [place], [place], [address], tel:[phone] SEC Berny ROSALES Professional Post-Op (chief complaint) Post op visit Apr- 3 Juan OD Radha. [facility] [address], [address], [place], [place], [address], [place]. tel:[phone] Referring Provider: Carly Guzman, [facility] [address], [place], [address] . tel:[phone] [facility], [address] [place] [address] [address], [place], [place], [address], [place] tel:[phone] [facility] No Information Apr- 3 Horacio Rivera. [address], [address], [place], [place], [address], [place]. tel:[phone] Referring Provider: Carly Guzman, [facility] [address], [place], [address] . tel:[phone] Office/outpa tient Visit, Est [facility], [address], [place], [place], [address], [place] tel:[phone] SEC [place] Cataract evaluation (chief complaint) Combined forms of age-related cataract, bilateralHist ory of laser assisted in situ keratomileusi sType 2 diabetes mellitus without complications Nodular corneal degeneration, left eyeGlaucoma suspect low risk, right eye Sep- 3 Horacio Rivera. [facility] [employer], [address], [place], [place], [address], . tel:[phone] Referring Provider: Carly Hall OD K, [facility] [address], [place], [address] . tel:[phone] [facility], [facility] [address], [place], [place], [address], tel:[phone] SEC Berny [place] Professional Complete Exam (chief complaint) History of laser assisted in situ keratomileusi sType 2 diabetes mellitus without complications Combined forms of age-related cataract, bilateralMGD (meibomian gland dysfunction)B ilateral dry eyes Sep- 3 Isabel Carroll. [facility] [address], [address], [place], [place], [address], [place]. tel:[phone] Referring Provider: Miguel Cowan, [facility] [address], [place], [address] . tel:[phone] [facility], [facility] [address], [place], [place], [address], [place] tel:[phone] SEC Yordan Adams Complete exam (chief complaint) Type 2 diabetes mellitus without complications Combined forms of age-related cataract, bilateralNodu lar corneal degeneration, bilateralLong term (current) use of oral hypoglycemic drugs 2 Horacio Rivera. [facility] [employer], [address], [place], [place], [address], [place]. tel:[phone] Referring Provider: Miguel Cowan, [facility] [address], [place], [address] . tel:[phone] [place]pa [place]ient [place], [facility] [address] [place], [place] [address], [place], [place], [address], tel:[phone] SEC [place] Cataract Check (chief complaint) Combined forms of age-related cataract, bilateralType 2 diabetes mellitus without complications History of laser assisted in situ keratomileusi sNodular corneal degeneration, left eye 0-202 1 Horacio Rivera. [facility] [employer], [address], [place], [place], [address], [place]. tel:[phone] Referring Provider: Miguel Cowan, [facility] [address], [place], [address] . tel:[phone] Office/outpa [place]ient Visit, [facility], [address] [place], [place] [address], [place], [place], [address], tel:[phone] SEC Yordanradha Watsonh 6 mo cataract check (chief complaint) Combined forms of age-related cataract, bilateralType 2 diabetes mellitus without complications History of laser assisted in situ keratomileusi s Nov-0 9-202 0 Horacio Rivera. [facility] [employer], [address], [place], [place], [address], [place]. tel:[phone] Referring Provider: Miguel Cowan, [facility] [address], [place], [address] . tel:[phone] [facility], [address] [place], [place] [address], [place], [place], [address], [place] tel:[phone] SEC [place] Complete Exam (chief complaint) Type 2 diabetes mellitus without complications Combined forms of age-related cataract, bilateralHist ory of laser assisted in situ keratomileusi s Nov-0 8-201 9 Horacio Rivera. [facility] [employer], [address], [place], [place], [address], [place]. tel:[phone] Referring Provider: Miguel Cowan, [facility] [address], [place], [address] . tel:[phone] [email or web address] [facility], [address], [place], [place], [address], tel:[phone] SEC [place] Complete Exam (chief complaint) Type 2 diabetes mellitus without complications Combined forms of age-related cataract, bilateralHist ory of laser assisted in situ keratomileusi sNodular corneal degeneration, left eye 8 Horacio Miguel. [address], [address], [place], [place], [address], . tel:[phone] Referring Provider: Miguel Cowan, [employer], [place], [address] . tel:[phone] [email or web address] [facility], [facility] [address], [place], [place], [address], tel:[phone] SEC [place] complete exam (chief complaint) Type 2 diabetes mellitus without complications penitentiary (current) use of oral hypoglycemic drugsCombined forms of age-related cataract, bilateral 7 Belle[place]avani Rivera. [facility] [employer], [address], [place], [place], [address], . tel:[phone] Referring Provider: Miguel Cowan, [address], [place], [address] . tel:[phone] [email or web address] [facility], [address], [place], [place], [address], tel:[phone] SEC [place] Blurry vision (chief complaint) No Information 5 Horacio Rivera. [address] [address], [address], [place], [place], [address], [place]. tel:[phone] Referring Provider: Miguel Cowan, [address], [place], [address] . tel:[phone] [email or web address] [facility], [address], [place], [place], [address], [place] tel:[phone] No Information 5 Heydi Pan. [address], [address], [place], [address], [place]. tel:[phone] [facility], [address], [place], [place], [address], [place] tel:[phone] SEC [place] No Information 4 Horacio Rivera. [address], [address], [place], [place], [address], [place]. tel:[phone] Referring Provider: Miguel Cowan, [address], [place], [address] . tel:[phone] Office/outpa tient Visit, [facility] [email or web address] [facility], [address], [place], [place], [address], [place] tel:[phone] SEC Yordan Weberbergh No Information 3 Horacio Rivera. [address], [address], [place], [place], [address], [place]. tel:[phone] Referring Provider: Miguel Cowan, [address], [place], [address] . tel:[phone] [email or web address] [facility], [address], [place], [place], [address], [place] [phone] SEC Yordan Juan [place] No Information 1 Horacio Rivera. [address], [address], [place], [place], [address], [place]. tel:[phone] Referring Provider: Miguel Cowan, [address], [place], [address] . tel:[phone] [email or web address] [facility], [address], [place], [place], [address], tel:[phone] SEC Yordan Adams No Information 201 0 Horacio Rivera. [address], [address], [place], [place], [address], [place]. tel:[phone] [facility], [address], [place], [place], [address], [phone] SEC Yordan Adams No Information 9[address] Horacio Rivera. [address], [address], [place], [place], [address], [place]. tel:[phone] Family History Family Member Type Diagnosis Age At Onset Mother Problem (finding) diabetes bella pizano in first degree relative Payers Payer name Insurance type Covered green party ID Authorkya morris(s) [employer] [id number] Social History Type Description Quantity Date Captured [...] Type 2 diabetes mellitus without complications - Diabetes type II: no background retinopathy, no signs of neovascularization noted. Discussed ocular and systemic benefits of blood sugar control. Letter to PCP. Cataract progression discussed. Related to See list of assessments above - 1 yr complete Related to See l ist of assessments above - 1 yr complete [...] - 1 year complete Related to Roxy betes Type II Cataract, Nuclear Sc lerosis, OUlasik flaps stable - Discussed cataract diagnosis with the patient. No treatment is required at this time. Will continue to observe condition and symptoms. Related to Cataract, Nuclear Sclerosis - 1 yr complete Related to Diabe ranjit Type II Diabetes Type II, - letter dictated to Dr. Pereira Related to Diabetes Type II Borderline Glaucoma, OU - asym [...]
--- OUTSIDE RECORDS SUMMARY | 2024-11-15 17:00 | XMS_ITS | Encounter Summary ---
Author Organization [facility] Address 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) Procedures MRI THERAPY PLANNING BRAIN W CONTRAST Jono Edouard MD [address] [place] [address] Phone: tel: fax: [facility] MRI [address] [place] [address] Phone: tel: fax: Referral ID Status Reason Start Date Expiration Date Visits Re quested Visits Authorized [id number] Closed 11/13/2024 02/11/2025 1 1 Reason for Visit * MRI (Routine) - Closed Specialty Diagnoses / Procedures Referred By Luis ibarra Referred To Contact Diagnoses 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) Procedures MRI THERAPY PLANNING BRAIN W CONTRAST [facility]o Edouard MD [address] [address] [address] Phone: tel: fax: [facility] MRI [address] [place] [address] Phone: tel: fax: Referral ID Status Reason Start Date Expiration Date Visits Re quested Visits Authorized [id number] Closed 11/13/2024 02/11/2025 1 1 Encounter Details Date Type Department Care Team (Latest Contact Info) Description 11/13/2024 1:49 PM CDT - 11/13/2024 11:59 PM CDT Hospital Encounter Laci Edouard [facility] MRI [address] [place] [address] Jono Edouard MD [address] 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 60 Tablet 2 11/13/2024 levETIRAcetam (Keppra) 500 mg tablet Take 1 Tablet (500 mg) by mouth 2 times daily. 30 Tablet 11/07/2024 mirtazapine (REMERON) 7.5 mg tablet Take 1 Tablet (7.5 mg) by mouth daily at bedtime. 30 Tablet 1 11/07/2024 Sodium Chloride 1,000 mg Tablet, Soluble Take 1 Tablet (1,000 mg) by mouth every 8 hours. 90 Tablet 10/30/2024 4:24 PM CDT 10/30/2024 omeprazole (PriLOSEC) 20 mg Capsule, Delayed Release(E.C.) Take 20 mg by mouth daily. ferrous sulfate 325 mg (65 mg iron) tablet Take 325 mg by mouth daily. simvastatin (ZOCOR) 5 mg tablet Take 40 mg by mouth daily with supper. cyanocobalamin (VITAMIN B-12) 250 mcg Tablet Take 250 mcg by mouth daily. ergocalciferol (VITAMIN D2) 50,000 unit capsule Take 50,000 Units by mouth every 7 days. Tuesday abiraterone (ZYTIGA) 250 mg tablet Take 2 Tablets (500 mg) by mouth daily before breakfast. 60 Tablet 4 10/16/2024 sertraline (Zoloft) 50 mg tablet Take 1 Tablet (50 mg) by mouth daily. 60 Tablet 2 10/16/2024 lidocaine-priloca ine (EMLA) 2.5-2.5 % Cream Apply a quarter amount to port site 30 minutes before access. 30 Gram 1 09/19/2024 ondansetron (ZOFRAN ODT) 8 mg Tablet, Rapid Dissolve Dissolve 1 tablet on top of tongue then swallow with saliva every 8 hours as needed for nausea or vomiting 30 Tablet 1 09/18/2024 documented as of this encounter Plan of Treatment Upcoming Encounters Date Type Department Care Team (Late st Contact Info) Description 2024 4:30 PM CDT Telephone Check Up [facility] Oncology and Hematology - [place] [address] [facility] [address] [place] [address] Agustin Brown MD [address] [facility] [address] [place] [address] 01/18/2025 12:45 PM CDT Appointment [facility] Medicine MRI [address] [facility] [address] [place] [address] Dianna Reid PA [address] [facility] [address] [place], [place] [address] 01/21/2025 1:00 PM CDT Office Visit [facility] Neurosurgery - Medical [place] [address] [facility] [address] [place] [address] Ad Chang MD [address] 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 Progression of intracranial metastatic disease in size and number as described above DICTATION LOCATION: Location 1 - [facility] Narrative 11/13/2024 2:40 PM CDT EXAMINATION: MRI THERAPY PLANNING BRAIN W CONTRAST DATE: 11/13/2024 2:10 PM HISTORY: Brain mets. 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 Interval enlargement of the enhancing left parietal metastasis that previously measured 5 mm and now measures 10 mm. Interval enlargement of the right frontal metastasis that previously measured 6 mm and now measures 7 mm. Interval enlargement of the inferior right frontal lobe lesion that previously measured 4 mm and now measures 6 mm. Interval development of a 5 mm enhancing lesion in the medial right temporal lobe. Questionable pinpoint focus of enhancement measuring 2 mm in the patricia. Examination performed for treatment planning purposes. Procedure Note Laci Garcia MD - 11/13/2024 EXAMINATION: MRI THERAPY PLANNING BRAIN W CONTRAST DATE: 11/13/2024 2:10 PM HISTORY: Brain mets. 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 Interval enlargement of the enhancing left parietal metastasis that previously measured 5 mm and now measures 10 mm. Interval enlargement of the right frontal metastasis that previously measured 6 mm and now measures 7 mm. Interval enlargement of the inferior right frontal lobe lesion that previously measured 4 mm and now measures 6 mm. Interval development of a 5 mm enhancing lesion in the medial right temporal lobe. Questionable pinpoint focus of enhancement measuring 2 mm in the patricia. Examination performed for treatment planning purposes. IMPRESSION: 1. 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 documented in this encounter Administered Medications Inactive Administered Medications - up to 3 most recent administrations Medication Order MAR Action Action Date Dose Rate Site gadoteridoL (PROHANCE) 279.3 mg/mL injection 20 mL 20 mL, IV, INTRA-PROCEDURE ONCE, 1 dose, Starting on Tue11/13/24 at 1356, Until Tue11/13/24 at 1300, Routine Contrast Given 11/13/2024 1:00 PM CDT 20 mL documented in this encounter Care Teams Gold Miner Relationship Specialty Start Date End Date Chaka Colin MD [address] [facility] [place] [address] PCP - General Family Practice 08/09/24 documented as of this encounter
--- OUTSIDE RECORDS SUMMARY | 2024-11-15 17:00 | XMS_ITS | Clinical Summary ---
Author Organization [facility] Denice Salgado Address [address] [place] [address] Care Team Providers Care Natural Gas Treating Unit Operator Name Role Phone Chaka Colin MD [...] bedtime. 30 Tablet 1 11/08/19 25 Active dexAMETHasone (DECADRON) 4 mg tablet Take 1 Tablet (4 mg) by mouth 2 times daily. 60 Tablet 2 11/14/19 25 Active predniSONE (DELTASONE) 5 mg tablet Take [...] Encounters Date Type Department Care Team Description 11/13/2024 1:49 PM CDT - 11/13/2024 11:59 PM CDT Hospital Encounter [facility] MRI [address] [place] [address] Jono Edouard MD Arrived Discharge Disposition: Home or Self Care 11/13/2024 12:46 PM CDT - 11/13/2024 11:59 PM CDT Hospital Encounter [facility] Radiation Therapy [address] [place] [address] Jono Edouard MD Discharge Disposition: Home or Self Care 11/12/2024 Orders Only [facility] Oncology and Hematology [facility] [address] [place] [address] Agustin Brown MD Prostate cancer (CMS/HCC) 11/09/2024 Telephone [facility] Neurosurgery [facility] [address] [facility] [address] [place] [address] Dianna Reid PA Follow Up 11/07/2024 2:30 PM CDT Office Visit [facility] Neurosurgery [facility] [address] [facility] [address] [place] [address] Dianna Reid PA Postoperative visit (Primary Dx); 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) 11/07/2024 9:15 AM CDT Office Visit [facility] Oncology and Hematology [facility] [address] [place] [address] Agustin Brown MD 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); Prostate cancer (CMS/HCC) 11/07/2024 Orders Only [facility] Oncology and Hematology - [place] [address] [place] [address] Agustin Brown MD 11/06/2024 Orders Only [facility] Radiation Therapy [address] [place] [phone] Jono Edouard MD 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) 11/05/2024 Orders Only [facility] Oncology and Hematology - [place] [address] [place] [address] Agustin Brown MD Prostate cancer (CMS/HCC) 11/01/2024 Abstract [facility] [address] [facility] [address] [place] [address] Ad Chang MD 11/01/2024 Telephone [facility] [address] [facility] [address] [place] [address] Provider, Abstract s/p crainiotomy 10/31/2024 3:28 PM CDT - 10/31/2024 11:59 PM CDT Hospital Encounter [facility] Imaging Services [facility] [address] [place] [address] Saima Miranda, PA Discharge Disposition: Home or Self Care 10/31/2024 Telephone [facility] Oncology and Hematology [facility] [address] [place] [address] Miguelito Reinoso MD Information 10/31/2024 Telephone [facility] [address] [facility] [address] [place] [address] Ad Chang MD question 10/30/2024 External Device Data [facility] ABSTRACTION Provider, Abstract 10/30/2024 External Device Data [facility] AB[facility]CTION Provider, Abstract 10/30/2024 External Device Data [facility] ABSTRACTION Provider, Abstract 10/29/2024 Orders Only [facility] Oncology and Hematology - [place] [address] [place] [address] Agustin Brown MD 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); Prostate cancer (CMS/HCC) 10/28/2024 Refill [facility] Medical Telemetry [address] [place] [address] Jg Jean-Baptiste PA 10/26/2024 7:00 AM CDT Anesthesia Event [facility] Operating Room [address] [place] [address] Joseph Quijano MD Berner, Christopher D, PA-C 10/26/2024 6:45 AM CDT - 10/26/2024 11:00 AM CDT Surgery [facility] Operating Room [address] [place] [address] Ad Chang MD CRANIOTOMY STEREOTACTIC 10/24/2024 Abstract [facility] Neurosurgery - [facility] [address] [facility] [address] [place] [address] Ad Chang MD 10/24/2024 Orders Only [facility] Neurosurgery - [facility] [address] [facility] [address] [place] [address] Ad Chang MD 10/24/2024 Orders Only [facility] Oncology and Hematology - [place] [address] [place] [address] Agustin Brown MD 10/23/2024 7:35 PM CDT - 10/30/2024 4:16 PM CDT Hospital Encounter [facility] Neurosurgery [address] [place] [address] Oralia Wright MD Long, Robert Nathan, MD Abduljaber, MD Chery Tafoya Nisha, MD Kenguva, Venkata, MD Sermadevi, Vinaya R, MD Aruchamy, Senthil, MD Nuspl, Uyen Connie, DO Junior, Denice, MD 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) Discharge Disposition: Home or Self Care 10/23/2024 Travel 10/23/2024 Orders Only [facility] Oncology and Hematology - [place] [address] Agustin Brown MD Cerebrovascular accident (CVA), unspecified mechanism (CMS/HCC) (Primary Dx) 10/22/2024 Orders Only [facility] Oncology and Hematology - [place] [address] Agustin Brown MD Cerebrovascular accident (CVA), unspecified mechanism (CMS/HCC) (Primary Dx); Prostate cancer (CMS/HCC) 10/17/2024 Orders Only [facility] Oncology and Hematology - [place] [address] Agustin Brown MD 10/16/2024 9:45 AM CDT Office Visit [facility] Oncology and Hematology - [place] [address] [place] [address] Agustin Brown MD Prostate cancer (CMS/HCC) (Primary Dx) 10/16/2024 Orders Only [facility] Oncology and Hematology - [place] [address] [place] [phone] Agustin Brown MD 10/15/2024 Refill [facility] Oncology and Hematology - [place] [address] [place] [address] Agustin Brown MD 10/15/2024 Orders Only [facility] Oncology and Hematology - [place] [address] [place] [address] Agustin Brown MD Prostate cancer (CMS/HCC) 10/09/2024 9:30 AM CDT Office Visit [facility] Oncology and Hematology - [place] [address] [place] [phone] Agustin Brown MD Prostate cancer ([facility]/HCC) (Primary Dx) 10/09/2024 Orders Only [facility] Oncology and Hematology - [place] [address] [place] [phone] Agustin Brown MD Prostate cancer ([facility]/HCC) (Primary Dx) 10/09/2024 Telephone [facility] Oncology and Hematology - [place] [address] [place] [phone] Agustin Brown MD Fatigue 10/01/2024 Orders Only [facility] Oncology and Hematology - [place] [address] Agustin Brown MD Prostate cancer ([facility]/HCC) 09/27/2024 Orders Only [facility] Oncology and Hematology - [place] [address] Agustin Brown MD 09/26/2024 External Device Data [facility] ABSTRACTION Provider, Abstract 09/25/2024 Specialty Pharmacy [facility] [address] [place] [phone] Lina Quintanilla, PHARMACIST Specialty Pharmacy Clinical Assessment 09/25/2024 Specialty Pharmacy [facility] [address] [place] [phone] Michelle Ruiz, PHARMACIST Specialty Pharmacy Refill Coordination 09/20/2024 Abstract [facility] Oncology and Hematology - [place] [address] [place] [address] Agustin Brown MD 09/19/2024 Refill [facility] Oncology and Hematology - [place] [address] [place] [address] Agustin Brown MD 09/18/2024 Orders Only [facility] Oncology and Hematology - [place] [address] [place] [address] Agustin Brown MD Prostate cancer (CMS/HCC) (Primary Dx) 09/18/2024 Refill [facility] Oncology and Hematology - [place] [address] [place] [address] Agustin Brown MD 09/18/2024 Refill [facility] Oncology and Hematology [place] [address] [place] [address] Agustin Brown MD 09/15/2024 External Device Data [...] file 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 [address] [place] [address] 01/18/2025 12:45 PM CDT Appointment [facility] Medicine MRI [address] [facility] [address] [place] [address] Dianna Reid PA [address] [facility] [address] [place] [address] 01/21/2025 1:00 PM CDT Office Visit [facility] Neurosurgery - [facility] [place] [address] [facility] [address] [place] [address] Ad Chang MD [address] [facility] [address] [address] (Work) Health Maintenance Due Date Last [...] 04/28/2025 10/27/2024 Medical Devices Implanted Type Area Wastewater Design Engineer Device Identifier Shelf Expiration Date Model / Serial / Lot Duragen + 3x3in Dp-1033 - [id number] Implanted:Qty: 1 on 10/26/2024 by Ad Chang MD at [facility] Graft Right: Cranial [employer] 04/09/2027 [id number] / / [id number] Agent Hemostat Surgicel 4x8in 1952s - [id number] Implanted:Qty: 1 on 10/26/2024 by Ad Chang MD at [facility] Hemostatic Right: Cranial J&J- [employer] [id number] 05/10/2029 1952S / / [id number] Hemostatic Surgicel 1x2in 1961 - [id number] Implanted:Qty: 1 on 10/26/2024 by Ad Chang MD at [facility] Hemostatic Right: Cranial J&J- [employer] [id number] 03/10/2027 1961 / / [id number] Hemostatic Surgiflo 8ml W/ Thrombin 2994 - [id number] Implanted:Qty: 1 on 10/26/2024 by Ad Chang MD at [facility] Hemostatic Right: Cranial J&J- [employer] [id number] 01/07/2026 2994 / / [id number] Plate Matrxneuro Frame 502.065 - [id number] Implanted:Qty: 2 on 10/26/2024 by Ad Chang MD at [facility] Plate Right: Cranial J&J- DEPUY SYNTHES .0 65 / / Plate Matrxneuro Bur Hl Cvr .021 - [id number] Implanted:Qty: 2 on 10/26/2024 by Ad Chang MD at [facility] Plate Right: Cranial J&J- DEPUY SYNTHES 502.0 21 / / Description:REQ [id number] Screw Matrixneuro Sd 503.104.01 - [id number] Implanted:Qty: 16 on 10/26/2024 by Ad Chang MD at [facility] Screw Right: Cranial J&J- DEPUY SYNTHES 503.1 10.09 / Screw Matrixneuro Sd .105.01 - [id number] Implanted:Qty: 1 on 10/26/2024 by Ad Chang MD at [facility] Screw Right: Cranial J&J- DEPUY SYNTHES .1 11.08 Description:REQ [id number] Procedures Procedure Name Priority Date/Time Associated Diagnosis Comments MRI THERAPY PLANNING BRAIN W CONTRAST Routine 11/13/2024 2:10 PM CDT 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 Progression of intracranial metastatic disease in size and number as described above DICTATION LOCATION: Location 1 - [facility] 11/13/2024 2:40 PM CDT EXAMINATION: MRI THERAPY [...] and now measures 6 mm. Interval development [id number]|2024-11-15 17:00:00|2024-11-15 17:00:00|XMS_ITS|BKG DAEMON|External Medical Summaries|[id number]|" Encounter Summary Created on: November 15, 2024 Almas Elias : 1945 Sex: Male Author Organization [facility] Address [address] [place] [address] Care Team Providers Care Natural Gas Treating Unit Operator Name Role Phone Chaka Colin MD Primary Care Provider Encounter Details Date Type Department Care Team (Latest Contact Info) Description 11/13/2024 12:46 PM CDT - 11/13/2024 11:59 PM CDT Hospital Encounter [facility] Radiation Therapy [address] [place] [address] Jono Edouard MD [address] 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 TodayShepHertz CT dataset will be utilized for stereotactic radiotherapy treatment planning. TREATMENT SITES(S): Brain NUMBER OF AREAS OR SORIANO: One treatment area was simulated today. EQUIPMENT USED: Simulation was performed on the [employer] dedicated CT simulator. IMMOBILIZATION: A ModalityFix HeadFix device utilizing a custom Fibreplast thermoplastic mask and Accuform custom vacuum head cushion was fabricated to immobilize the patient's head in treatment position. CONTRAST MEDIA: The use of contrast was not required for this simulation. EXTERNAL MARKERS: A fiducial was placed on the [employer] right forehead to ensure correct image orientation. TATTOOS: Not needed, galindo made on mask. COMPENSATING FILTER / WEDGE: None ISODOSE PLAN: A stereotactic radiotherapy treatment plan will be performed to precisely deliver a specified dose to the treatment volume with narrow margins and to protect adjacent critical normal tissues from receiving excessive radiation exposure. DAILY IMAGE GUIDANCE: Utilizing the integrated orthogonal kV system on the Cyberknife machine, real- time skull tracking will be used to ensure precise patient positioning, thus allowing treatment of the tumor with narrow margins. MEDICAL NECESSITY FOR SRS TREATMENT PLANNING: An ablative radiation dose is to be delivered to the target lesion in only 1-5 fractions, which is in excess of the dose commonly utilized with conventional treatments. The target volume is in close proximity to critical normal structures (brain, brainstem, optic apparatus, cranial nerves) and mustbe treated with very narrow margins to adequately protect immediately adjacent structures in order to reduce the probability of radiation toxicity. The dose required to deliver to the target volume exceeds the tolerance of these adjacent normal structures. There is inherent patient setup variation that could result in geometric miss of the target volume and/or excessive dose deliver to the adjacent normal structures. Stereotactic radiotherapy with skull-tracking is the only treatment modality that can achieve the precision needed for this treatment. Mr. Elias is noted to have 0/10 pain in clinic today. His individualized pain management will therefore consist of no intervention needed as the patient notes no pain of significance. SPECIAL TREATMENT MANAGEMENT MEDICAL NECESSITY: A special treatment management code (43686) has been charged for this patient due to the additionaltime and effort required of myself and the department staff while performing and/or managing a special treatment situation. This procedure has been charged only once during the entire course of treatment. SPECIAL TREATMENT PROCEDURE: Stereotactic radiosurgery/radiotherapy will be utilized to treat the patient's tumor with extremelyhigh accuracy in a single fraction or limited number of fractions (< 5). Fabrication of a uniquecustom rigid immobilization device, sophisticated computerized treatment planning, special consideration of the tolerance of adjacent critical normal tissues to large dose fractions, and complex delivery techniques required for this special treatment procedure exceed that typically involved in a usual course of radiation therapy. Jono Edouard MD documented in this encounter Miscellaneous Notes * Care Plan - Lucie Calvin RN - 11/13/2024 1:00 PM CDT Problem: External Beam Radiation (Adult) Goal: Prevent/Manage Potential Problems Description: Signs and symptoms of listed problems will be absent or manageable. Outcome: Progressing Note: Shola is here today with his for Cyber Knife treatment planning to the brain Oral instructions was provided on what to expect today during treatments and medications that will be prescribed. They were given permit for review and once all questions were addressed by consent was signed and he proceeded with simulation * Radiation Planning Notes - Jono Edouard MD - 11/13/2024 1:00 PM CDT RADIATION ONCOLOGY INITIAL CT SIMULATION PROCEDURE / [id number] Procedure Date: 11/13/2024 SUMMARY Janeth in his scalp were removed I reviewed the pathology report with them. They also plan to follow-up with Dr. Brown to discuss treatment options. I recommend stereotactic radiosurgery to the operative bed and other lesions in his brain. I discussed the treatment technique, expected outcome, side effects, and potential long-term effects of treatment. Possible effects of treatment include but are not limited to fatigue, scalp redness, hair loss, and the risk of injury of the brain or other tissues in the treatment region. Informed consent sheet was reviewed and signed with him (he is here with his today). I will place him on dexamethasone 4 mg twice daily since he is experiencing occasional headaches. He can use this on an as-needed basis. He is currently on Keppra also. PURPOSE: Almas Elias is undergoing a virtual CT simulation for external beam radiation treatment planning. [facility] will be utilized for stereotactic radiotherapy treatment planning. TREATMENT SITES(S): Brain NUMBER OF AREAS OR SORIANO: One treatment area was simulated today. EQUIPMENT USED: Simulation [facility] performed on the [facility] dedicated CT simulator. IMMOBILIZATION: A QFix HeadFix device utilizing a custom Fibreplast thermoplastic mask and Accuform custom vacuum head cushion was fabricated to immobilize the patient's head in treatment position. CONTRAST MEDIA: The use of contrast was not required for this simulation. EXTERNAL MARKERS: A fiducial was placed on the [employer]She[employer]ert[employer]s right forehead to ensure correct image orientation. TATTOOS: Not needed, galindo made on mask. COMPENSATING FILTER / WEDGE: None ISODOSE PLAN: A stereotactic radiotherapy treatment plan will be performed to precisely deliver a specified dose to the treatment volume with narrow margins and to protect adjacent critical normal tissues from receiving excessive radiation exposure. DAILY IMAGE GUIDANCE: Utilizing the integrated orthogonal kV system on the [employer] machine, real- time skull tracking will be used to ensure precise patient positioning, thus allowing treatment of the tumor with narrow margins. MEDICAL NECESSITY FOR SRS TREATMENT PLANNING: An ablative radiation dose is to be delivered to the target lesion in only 3-5 fractions, which is in excess of the dose commonly utilized with conventional treatments. The target volume is in close proximity to critical normal structures (brain, brainstem, optic apparatus, cranial nerves) and mustbe treated with very narrow margins to adequately protect immediately adjacent structures in order to reduce the probability of radiation toxicity. The dose required to deliver to the target volume exceeds the tolerance of these adjacent normal structures. There is inherent patient setup variation that could result in geometric miss of the target volume and/or excessive dose deliver to the adjacent normal structures. Stereotactic radiotherapy with skull-tracking is the only treatment modality that can achieve the precision needed for this treatment. Mr. Elias is noted to have 0/10 pain in clinic today. His individualized pain management will therefore consist of no intervention needed as the patient notes no pain of significance. SPECIAL TREATMENT MANAGEMENT MEDICAL NECESSITY: A special treatment management code (86531) has been charged for this patient due to the additionaltime and effort required of myself and the department staff while performing and/or managing a special treatment situation. This procedure has been charged only once during the entire course of treatment. SPECIAL TREATMENT PROCEDURE: Stereotactic radiosurgery/radiotherapy will be utilized to treat the patient's tumor with extremelyhigh accuracy in a single fraction or limited number of fractions (< 5). Fabrication of a uniquecustom rigid immobilization device, sophisticated computerized treatment planning, special consideration of the tolerance of adjacent critical normal tissues to large dose fractions, and complex delivery techniques required for this special treatment procedure exceed that typically involved in a usual course of radiation therapy. Jono Edouard MD documented in this encounter Plan of Treatment Upcoming Encounters Date Type Department Care Team (Late st Contact Info) Description 2024 4:30 PM CDT Telephone Check Up [facility] Oncology and Hematology - [place] [address] [place] [address] Agustin Brown MD [address] [facility] [address] [place] [address] 01/18/2025 12:45 PM CDT Appointment [facility] Medicine MRI [address] [facility] [facility] [address] [place] [address] Dianna Reid PA [address] [facility] [address] [place] [address] 01/21/2025 1:00 PM CDT Office Visit [facility] Neurosurgery - [facility] [address] [facility] [address] [place] [address] Ad Chang MD [address] [facility] [address] [address] -x0 (Work) documented as of this encounter Visit Diagnoses Not on filedocumented in this encounter Care Teams Natural Gas Treating Unit Operator Relationship Specialty Start Date End Date Chaka Colin MD [address] [facility] [place] [address] PCP - General Family Practice 08/09/24 documented as of this encounter "
--- OUTSIDE RECORDS SUMMARY | 2024-11-15 17:00 | XMS_ITS | Clinical Summary ---
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
--- NOTE | 2024-11-15 17:36 | ECG_ITS ---
Test Date: 2024-11-15 17:58:48 Measurements Intervals [place] Rate: 98 P: 41 OK: 167 QRS: 20 QRSD: 84 T: 31 QT: 336 QTc: 429 Interpretive Statements SINUS RHYTHM No previous ECG available for comparison Electronically Signed On 11-16-2024 12:05:26 CDT by Clive Glez M.D.
--- OUTSIDE RECORDS SUMMARY | 2024-11-15 17:38 | XMS_ITS | Encounter Summary ---
[facility] Organization [facility] Address 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) Procedures MRI THERAPY PLANNING BRAIN W CONTRAST Jono Edouard MD [address] [place] [address] Phone: tel: fax: [facility] MRI [address] [place] [address] Phone: tel: fax: Referral ID Status Reason Start Date Expiration Date Visits Re quested Visits Authorized [id number] Closed 11/13/2024 02/11/2025 1 1 Reason for Visit * MRI (Routine) - Closed Specialty Diagnoses / Procedures Referred By Luis ibarra Referred To Contact Diagnoses 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) Procedures MRI THERAPY PLANNING BRAIN W CONTRAST Jono Edouard MD [address] [facility] [address] [address] Phone: tel: fax: [facility] MRI [address] [place] [address] Phone: tel: fax: Referral ID Status Reason Start Date Expiration Date Visits Re quested Visits Authorized [id number] Closed 11/13/2024 02/11/2025 1 1 Encounter Details Date Type Department Care Team (Latest Contact Info) Description 11/13/2024 1:49 PM CDT - 11/13/2024 11:59 PM CDT Hospital Encounter Laci Edouard [facility] Center MRI [address] [place] [address] Jono Edouard MD [address] 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 Gender Identity Not on file Sexual Orientation [...] 2024 4:30 PM CDT Telephone Check Up [facility] Oncology and Hematology - [place] [address] [facility] [address] [place] [address] Agustin Brown MD [address] [facility] [address] [place] [address] 01/18/2025 12:45 PM CDT Appointment [facility] Medicine MRI [address] [facility] [address] [place] [address] Dianna Reid PA [address] [facility] [address] [place], [place] [id number] 01/21/2025 1:00 PM CDT Office Visit [facility] Neurosurgery - Medical [place] [address] [facility] [address] [place] [address] Ad Chang MD [address] [facility] [address] [address] -x0 (Work) documented as of this encounter [...] described above DICTATION LOCATION: Location 1 - [facility] Narrative 11/13/2024 2:40 PM CDT EXAMINATION: [...] described above DICTATION LOCATION: Location 1 - [facility] us Jono Edouard MD MR ORDERABLES [...] mL documented in this encounter Care Teams Wide Area Network Engineer Relationship Specialty Start Date End Date Chaka Colin MD [address] [facility] [place] [place] [address] PCP - General Family Practice 08/09/24 documented as of this encounter
--- OUTSIDE RECORDS SUMMARY | 2024-11-15 17:38 | XMS_ITS | Encounter Summary ---
Author Organization [facility] Address [address] [facility] [place] [address] Care Team Providers Care Post Office Manager Name Role Phone Almas Stapleton MD Unavailable [phone] Alejandro Kellogg DO Primary Care Provider [phone] Encounter Details Date Type Department Care Team (Late st Contact Info) Description 08/13/2024 Lab Requisition [facility] - Pathology Lab [address] [place] [address] Preston Rowland MD [address] [address] Illness, unspecified Social History Tobacco Use Types Packs/Day Years Used Date Smoking Tobacco: Former Cigarettes 1 25 0 07/11/1971 - 07/11/1996 Smokeless Tobacco: Never Alcohol Use Standard Drinks/Week Comments Yes 22.5 (1 standard drink = 0.6 oz pure alcohol) 2 drinks/day Sex and Gender Information Value Date Recorded Sex Assigned at Not on file 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 Gender Identity Not on file Sexual Orientation Not on file documented as of this encounter Plan of Treatment Pending Results Name Type Priority Associated Diagnoses Date /Time SLIDE PREP HISTOLOGY Pathology Cytology Routine Illness, unspecified 08/10/2024 documented as of this encounter Visit Diagnoses Diagnosis Illness, unspecified documented in this encounter Care Teams Post Office Manager Relationship Specialty Start Date End Date Alejandro Kellogg [place] [facility] [place] [address] PCP - General 02/23/22 Almas Stapleton MD Orthopedic Surgery 09/01/11 documented as of this encounter
--- OUTSIDE RECORDS SUMMARY | 2024-11-15 17:38 | XMS_ITS | Clinical Summary ---
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
--- OUTSIDE RECORDS SUMMARY | 2024-11-15 17:38 | XMS_ITS | Continuity of Care Document ---
Author Organization [facility] Address [address] [facility] [address] [place] [address] Phone Care Team Providers Care Toppiece Cutter Name Role Phone Ambriz Katelynn BURGESS Unavailable [...] Diagnoses Date Provider Providers Copied on Encounter [facility], [address] [address], [place], [place], [id number], tel:[phone] [place] No Information 0[address] Ambriz Katelynn. [address] [facility], [address], [place], [address], [place]. tel: [phone] [facility], [address] [address], [place], [place], [id number], tel:[phone] [place] No Information November-0 1-201 3 Ambriz Katelynn. [address] [place] [address], [address], [place], [facility], . tel: [phone] Referring Provider: Moises Phillip [address] [address], [place], [place], [facility]. tel:[phone] [place], [place] [address], [place], [place], [id number], tel:[phone] [place] No Information Oct-2 9-201 3 Ambriz Katelynn. [address] [place] [address], [address], [place], [facility], . tel: [phone] Referring Provider: Moises Phillip [address] [address], [place], [place], [facility]. tel:[phone] [place] [address] [address], [place], [place], [id number], tel:[phone] [place] No Information Oct-2 4-201 3 Ambriz Katelynn. [address] [place] [address], [address], [place], [facility], . tel: [phone] Referring Provider: Moises [address] [address], [place], [place], [facility]. tel:[phone] [facility] [address] [facility] [address], [place], [id number], tel:[phone] [place] No Information Oct-2 2-201 3 Ambriz Katelynn. [address] [place] [address], [address], [place], [facility], . tel: [phone] Referring Provider: Moises Phillip [address], [facility]. tel:[phone] [facility], [address] [place], [place] [address], [place], [place], [id number], tel:[phone] [place] No Information Oct-1 8-201 3 Ambriz Katelynn. [address] [place] [address] Drive, [address], [place], [place], [facility], . tel:[phone] Referring Provider: Moises Phillip [facility] [address], [place], [address]. tel:[phone] [facility], [address] [facility] [address], [place], [place], [id number], [place] tel:[phone] [place] Pain in joint involving lower leg Apr-1 6-201 3 Pb [address]. [address] [facility], [address], [place], [place], [facility], . tel:[phone] Referring Provider: Moises Phillip [facility] [address], [place], [address]. tel:[phone] Family History Family Member Type Diagnosis Age At Onset No Information Payers Payer name Insurance type Covered alliance party ID Maeve morris(s) [employer] [place] [id number] Social History Type Description Quantity Date Captured [...]
--- OUTSIDE RECORDS SUMMARY | 2024-11-15 17:38 | XMS_ITS | Encounter Summary ---
Author Organization [facility] Address [address] [facility] [place] [address] Care Team Providers Care Alarm Adjuster Name Role Phone Almas Stapleton MD Unavailable [phone] Alejandro Kellogg DO Primary Care Provider [phone] Encounter Details Date Type Department Care Team (Late st Contact Info) Description 08/16/2024 Lab Requisition [facility] - Pathology Lab [address] [place] [address] Preston Rowland MD [address] [address] Illness, unspecified Social History Tobacco Use Types Packs/Day Years Used Date Smoking Tobacco: Former Cigarettes 1 25 0 07/11/1971 - 07/11/1996 Smokeless Tobacco: Never Alcohol Use Standard Drinks/Week Comments Yes 22.5 (1 standard drink = 0.6 oz pure alcohol) 2 drinks/day Sex and Gender Information Value Date Recorded Sex Assigned at Not on file 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 Gender Identity Not on file Sexual Orientation Not on file documented as of this encounter Plan of Treatment Pending Results Name Type Priority Associated Diagnoses Date /Time SLIDE PREP HISTOLOGY Pathology Cytology Routine Illness, unspecified 08/10/2024 documented as of this encounter Visit Diagnoses Diagnosis Illness, unspecified documented in this encounter Care Teams Alarm Adjuster Relationship Specialty Start Date End Date Alejandro Kellogg DO [facility] [place] [address] PCP - General 02/23/22 Almas Stapleton MD Orthopedic Surgery 09/01/11 documented as of this encounter
--- OUTSIDE RECORDS SUMMARY | 2024-11-15 17:38 | XMS_ITS | Clinical Summary ---
Author Organization [facility] Address [address] [facility] [place] [address] Care Team Providers Care Photolith Operator Name Role Phone Almas Stapleton MD Unavailable [phone] Alejandro Kellogg DO Primary Care Provider [phone] Source Comments [facility],non-owned Affiliates and Associated Physician Practices is amultiple site organization consisting of ambulatory clinics and hospital sitesin [place], [place], [place] and [place]. This disclosure is being madepursuant to the Care Everywhere program and may not contain all information available regarding this patient. 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 Gender Identity Not on file Sexual Orientation Not on file Last Filed Vital Signs Vital Sign Reading Time Taken Comments Blood Pressure 117/74 09/04/2012 6:06 AM SAMPLE WRAPPER Pulse 78 09/04/2012 6:06 AM SAMPLE WRAPPER Temperature 36.9 C (98.4 F) 09/04/2012 6:06 AM SAMPLE WRAPPER Respiratory Rate 18 09/04/2012 6:06 AM SAMPLE WRAPPER Oxygen Saturation 98% 09/04/2012 6:06 AM SAMPLE WRAPPER Inhaled Oxygen Concentration - - Weight 88.4 kg (194 lb 12.8 oz) 09/01/2012 7:04 AM SAMPLE WRAPPER Height 175.3 cm (5' 9 ) 09/01/2012 7:04 AM SAMPLE WRAPPER Body Mass Index 28.77 09/01/2012 7:04 AM SAMPLE WRAPPER Plan of Treatment Health Maintenance Due [...] this topic Insurance [employer] ADV PPO [facility] Address: [address] [address] [employer] MED[employer] E[employer] MED[employer]ARE [employer] Advance Directives Documents on File Type Date 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
--- OUTSIDE RECORDS SUMMARY | 2024-11-15 17:38 | XMS_ITS ---
[facility] Address [address] [place] [address] Care Team Providers Care Laborer/Grade Check Name Role Phone Chaka Colin MD Primary [...]
--- OUTSIDE RECORDS SUMMARY | 2024-11-15 17:38 | XMS_ITS | Referral Summary ---
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
--- OUTSIDE RECORDS SUMMARY | 2024-11-15 17:39 | XMS_ITS | Continuity of Care Document ---
Author Organization [employer] [facility] [place] [address] Ceja [address] [place] [address] Phone Care Team Providers Care Fiscal Services Manager Name Role Phone Wilian Martinez ODssica Unavailable [...] Visit, Est [facility], [facility], [address], [place], [place], [address], [place] tel:[phone] SEC Berny ROSALES Professional 6 month IOL check (chief complaint) PrediabetesOt her secondary cataract, bilateralPres ence of intraocular lensVitreous degeneration, right eye 4 Juan OD Radha. [address], [address], [place], [place], [address], [place]. tel:[phone] Referring Provider: Carly Guzman, [id number] [place] [address] [address], [place], [address] . tel:[phone] [facility], [address], [place], [place], [address], [place] tel:[phone] SEC Berny ROSALES Professional 2 Week CE/IOL Symfony/Tor ic PO (chief complaint) Post op visit 4 Juan Cedenossica. [address], [address], [place], [place], [address], [place]. tel:[phone] Referring Provider: Carly Guzman, [facility] [address], [place], [address] . tel:[phone] [facility], [address], [place], [place], [address], [place] tel:[phone] SEC Berny ROSALES Professional Post-Op (chief complaint) Post op visit 3 Isabel Carroll. [address], [address], [place], [place], [address], [place]. tel:[phone] Referring Provider: Carly Guzman, [address], [place], [address] . tel:[phone] [facility], [address], [place], [place], [address], [place] tel:[phone] [facility] No Information 3 Horacio Rivera. [address], [address], [place], [place], [address], [place]. tel:[phone] Referring Provider: Carly Guzman, [address] [place] [address] [address], [place], [address] . tel:[phone] [facility], [address], [place], [place], [address], tel:[phone] SEC Berny ROSALES Professional 2 Week CE/IOL Symfony Toric PO (chief complaint) Post op visit Nov 0- 3 Isabel Carroll. [address] [place] [address] [employer] [address], [address], [place], [place], [address], [place]. tel:[phone] Referring Provider: Carly Guzman, [facility] [employer], [place], [address] . tel:[phone] [facility], [address], [place], [place], [address], tel:[phone] SEC Berny ROSALES Professional Post-Op (chief complaint) Post op visit Apr- 3 Juan OD Radha. [facility] [address], [address], [place], [place], [address], [place]. tel:[phone] Referring Provider: Carly Guzman, [facility] [address], [place], [address] . tel:[phone] [facility], [address] [place] [address] [address], [place], [place], [address], [place] tel:[phone] [facility] No Information Apr- 3 Horacio Rivera. [address], [address], [place], [place], [address], [place]. tel:[phone] Referring Provider: Carly Guzman, [facility] [employer] [address], [place], [address] . tel:[phone] Office/outpa tient Visit, Est [facility], [address], [place], [place], [address], [place] tel:[phone] SEC [place] Cataract evaluation (chief complaint) Combined forms of age-related cataract, bilateralHist ory of laser assisted in situ keratomileusi sType 2 diabetes mellitus without complications Nodular corneal degeneration, left eyeGlaucoma suspect low risk, right eye Sep- 3 Horacio Rivera. [facility] [employer], [address], [place], [place], [address], . tel:[phone] Referring Provider: Carly Hall OD K, [facility] [address], [place], [address] . tel:[phone] [facility], [facility] [address], [place], [place], [address], tel:[phone] SEC Berny [place] Professional Complete Exam (chief complaint) History of laser assisted in situ keratomileusi sType 2 diabetes mellitus without complications Combined forms of age-related cataract, bilateralMGD (meibomian gland dysfunction)B ilateral dry eyes Sep- 3 Isabel Carroll. [facility] [employer] [address] [address], [address], [place], [place], [address], [place]. tel:[phone] Referring Provider: Miguel Cowan, [facility] [address], [place], [address] . tel:[phone] [facility], [facility] [address], [place], [place], [address], [place] tel:[phone] SEC Yordan Adams Complete exam (chief complaint) Type 2 diabetes mellitus without complications Combined forms of age-related cataract, bilateralNodu lar corneal degeneration, bilateralLong term (current) use of oral hypoglycemic drugs 2 Horacio Rivera. [facility] [employer], [address], [place], [place], [address], [place]. tel:[phone] Referring Provider: Miguel Cowan, [facility] [address], [place], [address] . tel:[phone] Office/outpa [place]ient Visit, [facility] [place] [address] [place], [place] [address] [address], [place], [place], [address], tel:[phone] SEC Taswell N Lind[place] Cataract Check (chief complaint) Combined forms of age-related cataract, bilateralType 2 diabetes mellitus without complications History of laser assisted in situ keratomileusi sNodular corneal degeneration, left eye 0-202 1 Horacio Rivera. [facility] [employer], [address], [place], [place], [address], [place]. tel:[phone] Referring Provider: Miguel Cowan, [facility] [address], [place], [address] . tel:[phone] Office/outpa [place]ient Visit, [facility] [place] [address] [place], [place] [address] [address], [place], [place], [address], tel:[phone] SEC Yordanradha Watsonh 6 mo cataract check (chief complaint) Combined forms of age-related cataract, bilateralType 2 diabetes mellitus without complications History of laser assisted in situ keratomileusi s Nov-0 9-202 0 Horacio Rivera. [facility] [employer] [address], [address], [place], [place], [address], [place]. tel:[phone] Referring Provider: Miguel Cowan, [facility] [address], [place], [address] . tel:[phone] [facility], [address] [place], [place] [address], [place], [place], [address], [place] tel:[phone] SEC Taswell N Lindbergh Complete Exam (chief complaint) Type 2 diabetes mellitus without complications Combined forms of age-related cataract, bilateralHist ory of laser assisted in situ keratomileusi s Nov-0 8-201 9 Horacio Rivera. [facility] [employer], [address], [place], [place], [address], [place]. tel:[phone] Referring Provider: Miguel Cowan, [facility] [address], [place], [address] . tel:[phone] [employer] [facility] [employer] [facility], [address], [place], [place], [address], tel:[phone] SEC Taswell N Lindberg[place] Complete Exam (chief complaint) Type 2 diabetes mellitus without complications Combined forms of age-related cataract, bilateralHist ory of laser assisted in situ keratomileusi sNodular corneal degeneration, left eye 8 Horacio Miguel. [address], [address], [place], [place], [address], . tel:[phone] Referring Provider: Miguel Cowan, [employer] [address], [place], [address] . tel:[phone] [facility] [employer] [facility], [facility] [address], [place], [place], [address], tel:[phone] SEC Taswell N Lindbergh complete exam (chief complaint) Type 2 diabetes mellitus without complications detention (current) use of oral hypoglycemic drugsCombined forms of age-related cataract, bilateral 7 Kennanavani Rivera. [facility] [employer], [address], [place], [place], [address], . tel:[phone] Referring Provider: Miguel Cowan, [employer], [place], [address] . tel:[phone] [facility] [employer] [facility], [address], [place], [place], [address], tel:[phone] SEC Taswell N Lindbergh Blurry vision (chief complaint) No Information 5 Horacio Rivera. [address], [address], [place], [place], [address], [place]. tel:[phone] Referring Provider: Miguel Cowan, [address], [place], [address] . tel:[phone] [employer] [facility] [employer] [facility], [address], [place], [place], [address], [place] tel:[phone] No Information 5 Heydi Pan. [address], [address], [place], [address], [place]. tel:[phone] [employer] [facility] [employer] [facility], [address] [address], [place], [place], [address], [place] tel:[phone] SEC Taswell N Lindbergh No Information 4 Horacio Rivera. [address], [address], [place], [place], [address], [place]. tel:[phone] Referring Provider: Miguel Cowan, [address], [place], [address] . tel:[phone] Office/outpa tient Visit, [facility] [employer] [facility], [address] [address], [place], [place], [address], [place] tel:[phone] SEC Yordan Weberbergh No Information 3 Horacio Rivera. [address], [address], [place], [place], [address], [place]. tel:[phone] Referring Provider: Miguel Cowan, [address], [place], [address] . tel:[phone] [facility] [employer] [facility], [address] [address], [place], [place], [address], [place] [phone] SEC Yordan Juan Lindbergh No Information 1 Horacio Rivera. [address], [address], [place], [place], [address], [place]. tel:[phone] Referring Provider: Miguel Cowan, [address], [place], [address] . tel:[phone] [facility] [employer] [facility], [address], [place], [place], [address], tel:[phone] SEC Yordan Adams No Information 201 0 Horacio Rivera. [address], [address], [place], [place], [address], [place]. tel:[phone] [facility], [address] [address], [place], [place], [address], [phone] SEC Yordan Adams No Information 9[address] Horacio Rivera. [address] [address], [address], [place], [place], [address], [place]. tel:[phone] Family History Family Member Type Diagnosis Age At Onset Mother Problem (finding) diabetes bella pizano in first degree relative Payers Payer name Insurance type Covered alliance party ID Authorkya morris(s) [employer] [id number] Social History Type Description Quantity Date Captured [...]
--- OUTSIDE RECORDS SUMMARY | 2024-11-15 17:39 | XMS_ITS | Encounter Summary ---
Author Organization [facility] Address [address] [place] [address] Care Team Providers Care Cloth Classer Name Role Phone Chaka Colin MD Primary Care Provider Encounter Details Date Type Department Care Team (Late st Contact Info) Description 11/12/2024 Orders Only [facility] Oncology and Hematology - [place] [address] [place] [facility] [address] [place] [address] Agustin Brown MD [address] [facility] [address] [place] [address] Prostate cancer (CMS/HCC) Social History [...] on file 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 Gender Identity Not on file Sexual Orientation Not on file documented as of this encounter Plan of Treatment Upcoming Encounters Date Type Department Care Team (Late st Contact Info) Description 2024 4:30 PM CDT Telephone Check Up [facility] Oncology and Hematology - [place] [address] [place] [phone] Agustin Brown MD [address] [facility] [address] [place] [phone] 01/18/2025 12:45 PM CDT Appointment [facility] Medicine MRI [address] [facility] [address] [place] [address] Dianna Reid PA [address] [place] [address] 01/21/2025 1:00 PM CDT Office Visit [facility] Neurosurgery - Medical [place] [address] [address] [place] [address] Ad Chang MD [address] [address] -x0 (Work) documented as of this encounter Visit Diagnoses Diagnosis Prostate cancer (CMS/HCC) Malignant neoplasm of prostate documented in this encounter Care Teams Cloth Classer Relationship Specialty Start Date End Date Chaka Colin MD [facility] [facility] [place] [address] PCP - General Family Practice 08/09/24 documented as of this encounter
--- OUTSIDE RECORDS SUMMARY | 2024-11-15 17:39 | XMS_ITS | Clinical Summary ---
Author Organization [facility] Denice Salgado Address [address] [place] [address] Care Team Providers Care Accounts Payable Supervisor Name Role Phone Chaka Colin MD [...] - 11/13/2024 11:59 PM CDT Hospital Encounter [facility] MRI [address] [place] [address] Jono Edouard MD Arrived Discharge Disposition: Home or Self Care 11/13/2024 12:46 PM CDT - 11/13/2024 11:59 PM CDT Hospital Encounter [facility] Radiation Therapy [address] [place] [address] Jono Edouard MD Discharge Disposition: Home or Self Care 11/12/2024 Orders Only [facility] Oncology and Hematology [facility] [address] [place] [address] Agustin Brown MD Prostate cancer (CMS/HCC) 11/09/2024 Telephone [facility] Neurosurgery [facility] [address] [place] [address] Dianna Reid PA Follow Up 11/07/2024 2:30 PM CDT Office Visit [facility] Neurosurgery 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); Prostate cancer (CMS/HCC) 11/07/2024 Orders Only [facility] Oncology and Hematology - [place] [address] [place] [address] Agustin Brown MD 11/06/2024 Orders Only [facility] Edou[facility] Radiation Therapy [address] [place] [phone] Jono Edouard MD 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) 11/05/2024 Orders Only [facility] Oncology and Hematology - [place] [address] [place] [address] Agustin Brown MD Prostate cancer (CMS/HCC) 11/01/2024 Abstract [facility] - [facility] [address] [place] [address] Ad Chang MD 11/01/2024 Telephone [facility] [address] [place] [phone] Provider, Abstract s/p crainiotomy 10/31/2024 3:28 PM CDT - 10/31/2024 11:59 PM CDT Hospital Encounter [facility] Imaging Services [facility] [address] [place] [phone] Saima Miranda, PA Discharge Disposition: Home or Self Care 10/31/2024 Telephone [facility] Oncology and Hematology [facility] [address] [place] [address] Miguelito Reinoso MD Information 10/31/2024 Telephone [facility] [address] [place] [phone] Ad Chang MD question 10/30/2024 External Device Data [facility] ABSTRACTION Provider, Abstract 10/30/2024 External Device Data [facility] ABSTRACTION Provider, Abstract 10/30/2024 External Device Data [facility] ABSTRACTION Provider, Abstract 10/29/2024 Orders Only [facility] Oncology and Hematology - [place] [address] [place] [address] Agustin Brown MD 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); Prostate cancer (CMS/HCC) 10/28/2024 Refill [facility] Medical Telemetry [address] [place] [address] Jg Jean-Baptiste PA 10/26/2024 7:00 AM CDT Anesthesia Event [facility] Operating Room [address] [place] [address] Joseph Quijano MD Berner, Christopher D, PA-C 10/26/2024 6:45 AM CDT - 10/26/2024 11:00 AM CDT Surgery [facility] Operating Room [address] [place] [address] Ad Chang MD CRANIOTOMY STEREOTACTIC 10/24/2024 Abstract [facility] Neurosurgery - [facility] [address] [place] [address] Ad Chang MD 10/24/2024 Orders Only [facility] Neurosurgery - [facility] [address] [place] [address] Ad Chang MD 10/24/2024 Orders Only [facility] Oncology and Hematology - [place] [address] [place] [address] Agustin Brown MD 10/23/2024 7:35 PM CDT - 10/30/2024 4:16 PM CDT Hospital Encounter [facility] Neurosurgery [address] [place] [address] Oralia Wright MD Long, Robert Nathan, MD Abduljaber, MD Chery Tafoya Nisha, MD Kenguva, Venkata, MD Sermadevi, Vinaya R, MD Aruchamy, Senthil, MD Nuspl, Uyen Connie, DO Junior, Denice, MD 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) Discharge Disposition: Home or Self Care 10/23/2024 Travel 10/23/2024 Orders Only [facility] Oncology and Hematology - [place] [address] Agustin Brown MD Cerebrovascular accident (CVA), unspecified mechanism (CMS/HCC) (Primary Dx) 10/22/2024 Orders Only [facility] Oncology and Hematology - [place] [address] Agustin Brown MD Cerebrovascular accident (CVA), unspecified mechanism (CMS/HCC) (Primary Dx); Prostate cancer (CMS/HCC) 10/17/2024 Orders Only [facility] Oncology and Hematology - [place] [address] Agustin Brown MD 10/16/2024 9:45 AM CDT Office Visit [facility] Oncology and Hematology - [place] [address] [place] [phone] Agustin Brown MD Prostate cancer (CMS/HCC) (Primary Dx) 10/16/2024 Orders Only [facility] Oncology and Hematology - [place] [address] [place] [phone] Agustin Brown MD 10/15/2024 Refill [facility] Oncology and Hematology - [place] [address] [place] [address] Agustin Brown MD 10/15/2024 Orders Only [facility] Oncology and Hematology - [place] [address] [place] [address] Agustin Brown MD Prostate cancer (CMS/HCC) 10/09/2024 9:30 AM CDT Office Visit [facility] Oncology and Hematology - [place] [address] [place] [phone] Agustin Brown MD Prostate cancer ([facility]/HCC) (Primary Dx) 10/09/2024 Orders Only [facility] Oncology and Hematology - [place] [address] [place] [phone] Agustin Brown MD Prostate cancer ([facility]/HCC) (Primary Dx) 10/09/2024 Telephone [facility] Oncology and Hematology - [place] [address] [place] [phone] Agustin Brown MD Fatigue 10/01/2024 Orders Only [facility] Oncology and Hematology - [place] [address] Agustin Brown MD Prostate cancer ([facility]/HCC) 09/27/2024 Orders Only [facility] Oncology and Hematology - [place] [address] Agustin Brown MD 09/26/2024 External Device Data STL ABSTRACTION Provider, Abstract 09/25/2024 Specialty Pharmacy [facility] [address] [place] [phone] Lina Quintanilla, PHARMACIST Specialty Pharmacy Clinical Assessment 09/25/2024 Specialty Pharmacy [facility] [address] [place] [phone] Michelle Ruiz, PHARMACIST Specialty Pharmacy Refill Coordination 09/20/2024 Abstract [facility] Oncology and Hematology - [place] [address] [place] [phone] Agustin Brown MD 09/19/2024 Refill [facility] Oncology and Hematology - [place] [address] [place] [address] Agustin Brown MD 09/18/2024 Orders Only [facility] Oncology and Hematology - [place] [address] [place] [address] Agustin Brown MD Prostate cancer (CMS/HCC) (Primary Dx) 09/18/2024 Refill [facility] Oncology and Hematology - [place] [address] [place] [address] Agustin Brown MD 09/18/2024 Refill [facility] Oncology and Hematology [place] [address] [place] [address] Agustin Brown MD 09/15/2024 External Device Data [...] on file Legal 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 Gender Identity Not on file Sexual Orientation [...] 2024 4:30 PM CDT Telephone Check Up [facility] Oncology and Hematology - [place] [address] [facility] [address] [place] [address] Agustin Brown MD [address] [facility] [address] [place] [address] 01/18/2025 12:45 PM CDT Appointment [facility] Medicine MRI [address] [facility] [address] [place] [phone] Dianna Reid PA [address] [facility] [address] [place] [address] 01/21/2025 1:00 PM CDT Office Visit [facility] Neurosurgery - [facility] [place] [address] [place] [address] Ad Chang MD [address] [facility] [address] [address]x0 (Work) Health Maintenance Due Date Last [...] 04/28/2025 10/27/2024 Medical Devices Implanted Type Area Heel Gummer Device Identifier Shelf Expiration Date Model / Serial / Lot Duragen + 3x3in Dp-1033 - [id number] Implanted:Qty: 1 on 10/26/2024 by Ad Chang MD at [facility] Graft Right: Cranial [employer] 04/09/2027 [id number] / / [id number] Agent Hemostat Surgicel 4x8in 1952s - [id number] Implanted:Qty: 1 on 10/26/2024 by Ad Chang MD at [facility] Hemostatic Right: Cranial J[employer]- [employer] [id number] 05/10/2029 1952S / / [id number] Hemostatic Surgicel 1x2in 1961 - [id number] Implanted:Qty: 1 on 10/26/2024 by Ad Chang MD at [facility] Hemostatic Right: Cranial J&J- [employer] [id number] 03/10/2027 1961 / / [id number] Hemostatic Surgiflo 8ml W/ Thrombin 2994 - [id number] Implanted:Qty: 1 on 10/26/2024 by Ad Chang MD at [facility] Hemostatic Right: Cranial J[employer]J- [employer] [id number] 01/07/2026 2994 / / [id number] Plate Matrxneuro Frame 502.065 - [id number] Implanted:Qty: 2 on 10/26/2024 by Ad Chang MD at [facility] Plate Right: Cranial J&J- DEPUY SYNTHES .0 65 / / Plate Matrxneuro Bur Hl Cvr .021 - [id number] Implanted:Qty: 2 on 10/26/2024 by Ad Chang MD at [facility] Plate Right: Cranial J&J- DEPUY SYNTHES 502.0 21 / / Description:REQ [id number] Screw Matrixneuro Sd 503.104.01 - [id number] Implanted:Qty: 16 on 10/26/2024 by Ad Chang MD at [facility] Screw Right: Cranial J&J- DEPUY SYNTHES 503.1 10.09 / Screw Matrixneuro Sd .105.01 - [id number] Implanted:Qty: 1 on 10/26/2024 by Ad Chang MD at [facility] Screw Right: Cranial J&J- DEPUY SYNTHES .1 11.08 Description:REQ [id number] Procedures Procedure Name Priority Date/Time Associated Diagnosis [...] LYTES, GLUC) Routine 10/26/2024 7:52 AM CDT FL ANES INSERT CATH, ART, PERCUT, SHORTTERM Routine 10/26/2024 7:35 AM CDT FL ANES INSERT ENDOTRACHEAL AIRWAY Routine 10/26/2024 7:12 AM CDT POC GLUCOSE Routine 10/26/2024 6:51 AM CDT FL CRNEC TREPH BONE FLAP CRNOT EXC BRAIN [...] described above DICTATION LOCATION: Location 1 - [facility] 11/13/2024 2:40 PM CDT EXAMINATION: MRI THERAPY [...] and now measures 6 mm. Interval development [id number]|2024-11-16 12:52:48|2024-11-16 12:52:48|PM.CNPUL||||"Assessment and Plan Assessment and plan (1) Pleural effusion, left: Code(s): J90 - Pleural effusion, not elsewhere classified Status: Acute Assessment and Plan: Regarding his pleural effusion: patient has CT scan of the abdomen on 10/27/2020 with no pleural effusions. Next chest imaging inour system is a chest x-ray on 07/30/2024 with bilateral masses and a left pleural effusion. CT scan on 08/02/2024 showed multiple pulmonary ground-glass infiltrates and nodules and a small left free-flowing pleural effusion with maximal layering about [address] PET on 08/15/2024 showed an enlarged partially loculated left pleural effusion with maximal layering at about 25 mm. chest x-ray 09/17/2024 with enlarged airspace opacities and pleural effusion compared to 08/15/2024. chest x-ray 11/15/2024 with enlarged left pleural effusion occupying approximately 50% of the left hemithorax. CT scan of the chest on 11/15/2024 with an enlarged loculated left pleural effusion with maximal layering about 45 mm. Patient with progressively worse left pleural effusion since 07/30/2024. Plan: Agree with left-sided thoracentesis as the patient now is symptomatic with hypoxemia. patient had a fever and will stand and studies to assess for empyema, complex pleural effusions, exudate and transudate. If the patient has an empyema or complex effusion as evidenced by positive Gram stain, pH < 7.20, or positive culture he will need to be transferred to a higher level of care facility for thoracic surgery consultation. I have explained this to the patient and he is in agreement to be transferred if needed. her a repeat chest x-ray on 11/17/2024 and if the patient has a rapidly reaccumulate id effusion will need to be transferred to higher level of care facility for thoracic surgery consultation. Oncology consult has been placed. At this time agree with broad-spectrum antibiotics including vancomycin, Zosyn and I will add Levaquin for additional Gram-negative coverage and atypical coverage. Patient has had a clinical response to the DuoNeb Q.6 hours and would continue at this time. Patient is on Decadron 4 mg p.o. q.day . Pulmonary inpatient services will resume on 11/19/2024, call with questions Discussed with Dr. Silva (2) Acute hypoxic respiratory failure: Code(s): J96.01 - Acute respiratory failure with hypoxia Status: Acute Assessment and Plan: Patient previously not requiring oxygen at home. No previous respiratory limitations in his activities of daily living. Patient presented with hypoxemic respiratory failure 74% sats on room air. Increased to 94% on 6 L. Currently patient requiring 4 L nasal cannula. Etiology for hypoxemic respiratory failure includes: Left pleural effusion, bilateral lung masses, pneumonia and/or empyema. Plan: I will check an ABG to assess for hypercarbic respiratory failure. Goal saturation 90-94%. I will place the patient on continuous oxygen monitor. Adjust oxygen accordingly. History of Present Illness History of Present Illness Consult date: 11/16/24 Chief complaint: pleural effusion, malignancy,elevated troponin,SOB Narrative: 11/16/2024: This is a new pulmonary consult for pleural oral effusion and hypoxia. 78-year-old with a history of hyponatremia, anemia, diabetes, GERD, metastatic prostate cancer. Regarding patient's metastatic prostate cancer he is followed by Dr. Brown, oncology. diagnosis status post TURP done on 10/29 with adenocarcinoma. Completed radiation July 2021 and then received Eligard. Metastatic prostate to the liver status post biopsy August 10, 2024. PET scan 08/15/2024 with multiple bilateral FDG avid masses in the lung, few FDG avid hepatic masses, and enlarged mediastinal lymph nodes consistent with metastatic disease. Started on weeks Gwen Taxotere on 09/25/2024, Lupron started 09/19/2024, Xgeva started 09/19/2024, Zytiga started August 2024. patient presented with weeks left side and had an MRI on 10/23/2024 which showed multiple brain lesions and he was transferred to [facility] and underwent a craniotomy with resection on 10/26/2024 and was discharged on 10/29/2024. He was on no home oxygen when he was discharged. The patient tells me they are still waiting on genetic markers. He is scheduled to get radiation therapy to 2 remaining brain lesions and was mapped on 11/12/2024 at [facility]. Regarding his pleural effusion: patient has CT scan of the abdomen on 10/27/2020 with no pleural effusions. Next chest imaging was a chest x-ray on 07/30/2024 with bilateral masses and a left pleural effusion. CT scan on 08/02/2024 showed multiple pulmonary ground-glass infiltrates and nodules and a small left free-flowing pleural effusion with maximal layering about [address] PET on 08/15/2024 showed an enlarged partially loculated left pleural effusion with maximal layering at about 25 mm. chest x-ray 09/17/2024 with enlarged airspace opacities and pleural effusion compared to 08/15/2024. chest x-ray 11/15/2024 with enlarged left pleural effusion occupying approximately 50% of the left hemithorax. CT scan of the chest on 11/15/2024 with an enlarged loculated left pleural effusion with maximal layering about 45 mm. patient smoked tobacco from age [age] at 1 pack per day for a total of 33 pack years. Patient was exposed to secondhand smoke. Patient was exposed to secondhand smoke from his until 1984. 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 Patient has had no respiratory limitations in his activities of daily living. He is on no home oxygen 11/16/2023: patient has 5-6 days of dry cough with no hemoptysis, fever x1, weakness, shortness of breath and gasping for air and presented to the emergency room on 11/15/2024. Blood pressure 125/71, heart rate 106, room air saturation 74% and increased to 94% with 6 L nasal cannula. His respiratory rate was 34. White blood cell count 9.3, creatinine 0.52, BNP 1920, procalcitonin 0.4, CRP 26.9, troponin was positive, MRSA nasal swab negative. CT angiogram of the chest showed no pulmonary embolism, new large left effusion that was not free flowing with some evidence of loculation and multiple bilateral lung masses. Patient was treated with dexamethasone 4 mg, bronchodilators, vancomycin, Zosyn and admitted to the floor. 11/17/2023: Overall patient tells me he is breathing better. Feels he is breathing 50% back to his baseline. Is wheezing and cough or the same. Currently he is on 4 L nasal cannula saturation 93%. White blood cell count count 8.9, creatinine 0 point 5 0. DATA: EXAMINATION: CTA chest PE protocol DATE: 11/15/2024 19:35 CDT INDICATION: Hypoxia. Pulmonary embolus suspected clinically TECHNIQUE: Computed tomographic angiography (CTA) of the chest was performed with 100 mL Omnipaque-350 intravenous contrast. The dose-length product was 438.87 mGy-cm. Maximum intensity projection 3D-reconstructions of the aorta and other arteries were constructed by the technologist on a separate workstation. COMPARISON: Reference is made to a CT examination of the chest dated 08/02/2024 FINDINGS/OBSERVATIONS: PULMONARY ARTERIES: No filling defect is identified within the main or proximal pulmonary artery. The main pulmonary artery is not enlarged. THORACIC AORTA: No aneurysmal dilatation or dissection is present. The great vessels are intact LUNGS: Redemonstration of a spiculated mass within the right upper lobe. Redemonstration of a large mass at the left hilum, unchanged from prior. Interval development of a large left-sided pleural effusion, likely contributing to patient's hypoxia. MEDIASTINUM: No morphologically suspicious or pathologically enlarged lymph nodes are identified within the mediastinum or bilateral axilla. BONES OF THE CHEST: No acute fracture. There are bridging endplate osteophytes at multiple levels in the spine, consistent with diffuse idiopathic skeletal hyperostosis (DISH). No lytic or blastic lesions. HEART: The heart is of normal size, without pericardial effusion. IMPRESSION: No pulmonary embolus. No thoracic aortic dissection. 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 Interval development of a large left-sided pleural effusion, likely contributing to patient's hypoxia as this is an interval change from 08/02/2024 examination. Review of Systems Constitutional: Constitutional: Reports no additional constitutional complaints Eyes: Eyes: Reports no additional eye complaints ENT: Reports system reviewed and no additional complaints, except as documented Cardiovascular: Cardiovascular: Reports no additional cardiovascular complaints Respiratory: Respiratory: Reports no additional respiratory complaints Gastrointestinal: Gastrointestinal: Reports no additional gastrointestinal complaints Musculoskeletal: Musculoskeletal: Reports no additional musculoskeletal complaints Neurologic: Reports system reviewed and no additional complaints, except as documented Psychiatric: Psychiatric: Reports no additional psychiatric complaints Endocrine: Endocrine: Reports no additional endocrine complaints Hematologic/Lymphatic: Hematologic/Lymphatic: Reports no additional hematologic/lymphatic complaints Allergic/Immunologic: Allergic/Immunologic: Reports no additional allergic/immunologic complaints [facility] Past Medical History Medical History (Updated 11/15/24 @ 22:33 by Loyda Thompson DO) Metastatic adenocarcinoma to brain Insomnia Hyponatremia Secondary malignant neoplasm of bone Anemia Prediabetes Family history of melanoma History of colonic polyps Basal cell carcinoma Prostate cancer (~2020) Other and unspecified hyperlipidemia Osteoarthritis of knee, unspecified Surgical History Surgical History (Updated 11/15/24 @ 22:25 by Loyda Thompson DO) Status post cataract extraction of both eyes with insertion of intraocular lens (2023) Port-A-Cath in place (09/17/24) History of craniotomy (10/20/24) left frontal lobe lesion resection History of tonsillectomy Family History Family History Father Acute myocardial infarction Heart disease Mother Breast cancer Sibling Melanoma Social History Social History (Updated 11/16/24 @ 08:36 by Loyda Thompson DO) Social History: 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 He lives with his of 58 years. They raised 3 sons. Patient has smoked 1 pack of cigarettes per day for 35-40 years but quit smoking in 1999. He used to drink 2 alcoholic beverages a night but has cut back since his recent illness. He denies history of illicit substance use. He has been ambulating with a walker since he was discharged from the hospital in October at following his craniotomy. Code status: Full code (the patient initially told me that he did not want to be intubated but when discussing cardiac resuscitation he stated that he would defer all decisions to his son Chente. He stated that Chente would not do something that was not necessary any wants him to make the his decisions for him. Smoking packs per day: 1 Smoking cigarettes per day: 20.0 Years smoked: 40 Smoking pack-years: 40.00 Smoking status: Former smoker Tobacco type: cigarettes Second hand tobacco smoke exposure: No Smoking end date: 07/11/99 Alcohol intake: current Drinks per week: 21 Alcohol use details: Liquor Substance use: never Substance use type: does not use Do You Feel Safe in your Home?: Yes Lack of Transportation: No Lack of Food: Never True Current Housing: I Have Housing Concerned About Future Housing: No Difficulty Paying Gas/Electric Bills: No Difficulty Paying for Meds: No Currently Unemployed: No Education: High School Diploma/GED Difficulty w/ Childcare or Family Care: No Living arrangements: with family Additional living arrangements comments: Occupation/Education: retired Gender identity (if verbalized by the patient): Male Sexual Orientation (if Verbalized by the Patient): Straight or Heterosexual Spiritual care concerns: No Agree to blood products: Yes Meds Home Medications and Allergies Home Medications Medication Instructions Recorded Confirmed Type ergocalciferol (vitamin D2) 1,250 1,250 mcg PO WEEKLY #12 caps 08/02/24 11/15/24 Rx mcg (50,000 unit) capsule simvastatin 40 mg tablet 40 mg PO QHS #90 tabs 10/10/24 11/15/24 Rx cyanocobalamin (vitamin B-12) 250 250 mcg PO DAILY 11/05/24 11/15/24 History mcg tablet ferrous sulfate 325 mg (65 mg 325 mg PO DAILY 11/05/24 11/15/24 History iron) tablet levetiracetam 500 mg tablet 500 mg PO BID 11/05/24 11/16/24 History lidocaine-prilocaine 2.5 %-2.5 % 1 applic topical ONCE 11/05/24 11/15/24 History topical cream mirtazapine 7.5 mg tablet 7.5 mg PO QHS 11/05/24 11/16/24 History omeprazole magnesium 20 mg 20 mg PO DAILY 11/05/24 11/15/24 History tablet,delayed release ondansetron 8 mg disintegrating 8 mg PO ONCE 11/05/24 11/15/24 History tablet metformin 500 mg tablet,extended 500 mg PO QPM #100 tabs 11/07/24 11/15/24 Rx release 24 hr (Glucophage XR) dexamethasone 4 mg tablet 4 mg PO DAILY 11/15/24 11/15/24 History Allergies Allergy/AdvReac Type Severity Reaction Status Date / Time No Known Allergies Allergy Verified 11/05/24 08:23 Vital Signs Vital Signs - 24 hr 11/15/24 17:12 11/15/24 17:17 11/15/24 17:30 Temperature 38.1 C H Pulse Rate 106 H 104 H Respiratory Rate 34 H 26 H Blood Pressure 125/71 Pulse Oximetry 74 L 93 97 Oxygen Delivery Nasal Cannula Oxygen Flow Rate 6 Fraction of Inspired Oxygen 11/15/24 17:30 11/15/24 17:53 11/15/24 17:55 Temperature Pulse Rate 98 106 H Respiratory Rate 24 H 24 H Blood Pressure Pulse Oximetry 97 Oxygen Delivery Nasal Cannula Oxygen Flow Rate 6 Fraction of Inspired Oxygen 11/15/24 18:15 11/15/24 18:46 11/15/24 19:01 Temperature Pulse Rate 103 H 100 101 H Respiratory Rate 24 H 20 20 Blood Pressure 122/63 117/65 114/63 Pulse Oximetry 100 100 94 Oxygen Delivery Oxygen Flow Rate Fraction of Inspired Oxygen 11/15/24 20:46 11/15/24 21:36 11/15/24 23:35 Temperature 36.8 C Pulse Rate 89 81 Respiratory Rate 22 H 22 H Blood Pressure 118/70 118/79 Pulse Oximetry 94 94 94 Oxygen Delivery Nasal Cannula Oxygen Flow Rate 6 Fraction of Inspired Oxygen 11/16/24 00:00 11/16/24 00:00 11/16/24 02:00 Temperature 36.4 C Pulse Rate 86 86 87 Respiratory Rate 20 Blood Pressure 125/69 Pulse Oximetry 96 Oxygen Delivery Oxygen Flow Rate Fraction of Inspired Oxygen 11/16/24 02:07 11/16/24 02:08 11/16/24 04:00 Temperature Pulse Rate 85 85 Respiratory Rate 20 20 Blood Pressure Pulse Oximetry 96 96 Oxygen Delivery Nasal Cannula Nasal Cannula Oxygen Flow Rate 4 6 Fraction of Inspired Oxygen 36 11/16/24 04:00 11/16/24 04:00 11/16/24 06:00 Temperature 37.2 C Pulse Rate 64 80 82 Respiratory Rate 20 Blood Pressure 113/62 Pulse Oximetry 91 Oxygen Delivery Oxygen Flow Rate Fraction of Inspired Oxygen 11/16/24 08:00 11/16/24 08:10 11/16/24 08:11 Temperature Pulse Rate 81 Respiratory Rate 18 Blood Pressure Pulse Oximetry 92 91 Oxygen Delivery Nasal Cannula Nasal Cannula Oxygen Flow Rate 6 4 Fraction of Inspired Oxygen 11/16/24 08:18 11/16/24 08:28 11/16/24 11:46 Temperature 37.1 C 36.4 C Pulse Rate 73 89 76 Respiratory Rate 18 20 18 Blood Pressure 111/63 100/60 Pulse Oximetry 92 93 Oxygen Delivery Oxygen Flow Rate Fraction of Inspired Oxygen Exam Const: General: cooperative, healthy appearing and comfortable Orientation/consciousness: oriented to person, oriented to place and oriented to time HENMT: Head: normal to inspection Ears: hearing grossly normal bilaterally Eyes: General: appearance normal, both eyes and all related structures Neck: Neck: normal visual inspection Chest: Chest palpation & inspection: normal inspection of the chest Resp: Effort & Inspection: normal respiratory effort and able to speak in complete sentences Auscultation: crackles, no rales, no rhonchi, wheezes and diminished lung sounds Other: Decreased breath sounds left lung, wheezes right lung, crackles right base. Cardio: Jugular venous distension: no JVD GI: Inspection: normal to inspection GI Palp: No abdominal tenderness Skin: General skin exam: normal color Neuro: General: oriented to person, oriented to place and oriented to time Extrem: General: normal to inspection Psych: Appearance: grossly normal Results Laboratory Findings 11/16/24 02:37 11/16/24 02:37 ABG, PT/INR, D-dimer: PT/INR, D-dimer PT 15.7 Seconds (11.1-14.7) H 11/15/24 17:43 INR 1.2 11/15/24 17:43 Abnormal lab findings: Abnormal Labs 11/15/24 11/15/24 11/16/24 17:43 20:45 02:33 RBC 3.48 L Hgb 8.1 L Hct 27.7 L MCV 79.6 L MCH 23.3 L MCHC 29.2 L RDW 22.1 H Immature Gran % (Auto) 4.1 H Neut % (Auto) 81.6 H Lymph % (Auto) 7.9 L Pierce % (Auto) Baso % (Auto) Lymph # (Auto) 0.73 L Abs Immat Gran (auto) 0.38 H Absolute Neuts (auto) 7.6 H Absolute Nucleated RBC 0.030 H Nucleated RBC % 0.3 H ESR > 140 H PT 15.7 H Sodium 134 L Creatinine 0.52 L Glucose 117 H POC Capillary Glucose Calcium 7.5 L Lactate Dehydrogenase Troponin I 0.039 H* C-Reactive Protein 26.9 H NT-Pro-B Natriuret Pep 1920 H Total Protein 6.0 L 6.0 L Albumin 2.9 L Ur Specific [place] > 1.045 H Urine Ketones Trace H 11/16/24 11/16/24 11/16/24 02:37 07:50 11:29 RBC 3.67 L Hgb 8.5 L Hct 29.9 L MCV MCH 23.2 L MCHC 28.4 L RDW 22.0 H Immature Gran % (Auto) 5.1 H Neut % (Auto) 91.2 H Lymph % (Auto) 2.6 L Pierce % (Auto) 1.0 L Baso % (Auto) 0.1 L Lymph # (Auto) 0.23 L Abs Immat Gran (auto) 0.45 H Absolute Neuts (auto) 8.1 H Absolute Nucleated RBC 0.020 H Nucleated RBC % ESR PT Sodium Creatinine 0.50 L Glucose 277 H POC Capillary Glucose 215 H 157 H Calcium 7.2 L Lactate Dehydrogenase 400 H Troponin I C-Reactive Protein NT-Pro-B Natriuret Pep Total Protein Albumin Ur Specific [place] Urine Ketones Diagnostic Findings Additional studies: ITS Impressions Chest X-Ray 11/15/24 18:55 IMPRESSION: Redemonstration of a large left-sided pleural effusion with adjacent consolidation. Right hilar infiltrate is also suspected. Chest CTA 11/15/24 19:34 IMPRESSION: No pulmonary embolus. No thoracic aortic dissection. 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 Interval development of a large left-sided pleural effusion, likely contributing to patient's hypoxia as this is an interval change from 08/02/2024 examination. "
--- OUTSIDE RECORDS SUMMARY | 2024-11-15 17:39 | XMS_ITS | Encounter Summary ---
Author Organization [facility] Address [address] [place] [address] Care Team Providers Care Kinesiology Professor Name Role Phone Chaka Colin MD Primary Care Provider Encounter Details Date Type Department Care Team (Latest Contact Info) Description 11/13/2024 12:46 PM CDT - 11/13/2024 11:59 PM CDT Hospital Encounter [facility] Radiation Therapy [address] [place] [address] Jono Edouard MD 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 [facility] CT dataset will be utilized for stereotactic radiotherapy treatment planning. TREATMENT SITES(S): Brain NUMBER OF AREAS OR SORIANO: One treatment area was simulated today. EQUIPMENT USED: Simulation was performed on the [facility] dedicated CT simulator. IMMOBILIZATION: A QFix HeadFix device utilizing a custom Fibreplast thermoplastic mask and Accuform custom vacuum head cushion was fabricated to immobilize the patient's head in treatment position. CONTRAST MEDIA: The use of contrast was not required for this simulation. EXTERNAL MARKERS: A fiducial was placed on the [facility] right forehead to ensure correct image orientation. [...] MEDICAL NECESSITY: A special treatment management code (48495) has been charged for this patient due [...] RADIATION ONCOLOGY INITIAL CT SIMULATION PROCEDURE / [id number] Procedure Date: 11/13/2024 SUMMARY Janeth in his [...] simulation for external beam radiation treatment planning. [facility] CT dataset will be utilized for stereotactic radiotherapy treatment planning. TREATMENT SITES(S): Brain NUMBER OF AREAS OR SORIANO: One treatment area was simulated today. EQUIPMENT USED: Simulation was performed on the [facility] dedicated CT simulator. IMMOBILIZATION: A QFix HeadFix device utilizing a custom Fibreplast thermoplastic mask and Accuform custom vacuum head cushion was fabricated to immobilize the patient's head in treatment position. CONTRAST MEDIA: The use of contrast was not required for this simulation. EXTERNAL MARKERS: A fiducial was placed on the [facility] right forehead to ensure correct image orientation. [...] MEDICAL NECESSITY: A special treatment management code (89404) has been charged for this patient due [...] 2024 4:30 PM CDT Telephone Check Up [facility] Oncology and Hematology - [place] [address] [facility] [address] [place] [address] Agustin Brown MD [address] [facility] [address] [place] [address] 01/18/2025 12:45 PM CDT Appointment [facility] Medicine MRI [address] [facility] [address] [place] [id number] Dianna Reid PA [address] [place] [address] 01/21/2025 1:00 PM CDT Office Visit [facility] Neurosurgery - Medical [place] [address] [facility] [address] [place] [address] Ad Chang MD [address] [place], [place] [id number] [id number] (Work) documented as of this encounter Visit Diagnoses Not on filedocumented in this encounter Care Teams Kinesiology Professor Relationship Specialty Start Date End Date Chaka Colin MD [address] [place] [place] [address] PCP - General Family Practice 08/09/24 documented as of this encounter
[2024-11-15] MEDS: IPRATROPIUM 0.5 MG/ALBUTEROL SULFATE 2.5 MG AMPUL.NEB 3 ML INHALATION ×3 (17:40→17:53)
--- NOTE | 2024-11-15 17:40 | ED.SOB ---
HPI - SOB/Dyspnea General Chief Complaint: Shortness of Breath/Dyspnea <Nuvia Villarreal APRN - Last Filed: 11/15/24 20:42> Stated Complaint: dyspnea, fever <Nuvia Villarreal APRN - Last Filed: 11/15/24 20:42> Time Seen by Provider: 11/15/24 17:11 <Nuvia Villarreal APRN - Last Filed: 11/15/24 20:42> History of Present Illness HPI Narrative: Patient is a 78-year-old male who presents to the ER with of cough and shortness of breath. He was recently diagnosed with a brain tumor and had brain surgery. Patient was discharged from [facility] and will be following up with Oncology for further treatment of his cancer. He reports he started experiencing shortness of breath this morning around 5:00 a.m.. Patient reports yesterday his home health nurse came to assess him and his oxygen saturation was in the mid is 70s. It is unclear why patient did not present to the ER for evaluation sooner. His reports he has had a cough and some wheezing over the past couple days. She reports she gave him Tylenol once and Zyrtec. Patient was also recently diagnosed with diabetes and started on metformin within the past week. He denies any back pain, abdominal pain, or urinary symptoms. <Nuvia Villarreal APRN - Last Filed: 11/15/24 20:42> Related Data Home Medications: Home Medications Medication Instructions Recorded Confirmed Last Taken Type cyanocobalamin (vitamin B-12) 250 250 mcg PO DAILY 11/05/24 11/15/24 11/15/24 History mcg tablet ferrous sulfate 325 mg (65 mg 325 mg PO DAILY 11/05/24 11/15/24 11/15/24 History iron) tablet levetiracetam 500 mg tablet 500 mg PO BID 11/05/24 11/05/24 Unknown History lidocaine-prilocaine 2.5 %-2.5 % 1 applic topical ONCE 11/05/24 11/15/24 10/30/24 History topical cream mirtazapine 7.5 mg tablet 7.5 mg PO QHS 11/05/24 11/05/24 Unknown History omeprazole magnesium 20 mg 20 mg PO DAILY 11/05/24 11/15/2411/14/25 History tablet,delayed release ondansetron 8 mg disintegrating 8 mg PO ONCE 11/05/24 11/15/24 Unknown History tablet albuterol sulfate 90 mcg/actuation inhalation 11/15/24 Unknown History aerosol inhaler dexamethasone 4 mg tablet 4 mg PO DAILY 11/15/24 11/15/24 11/14/24 History <Nuvia Villarreal APRN - Last Filed: 11/15/24 20:42> Allergies/Adverse Reactions: Allergies Allergy/AdvReac Type Severity Reaction Status Date / Time No Known Allergies Allergy Verified 11/05/24 08:23 <Nuvia Villarreal APRN - Last Filed: 11/15/24 20:42> Review of Systems Review of Systems: All systems reviewed & are unremarkable except as noted in HPI and below <Nuvia Villarreal APRN - Last Filed: 11/15/24 20:42> [facility] Past Medical History Medical History: Medical History (Updated 11/15/24 @ 22:33 by Loyda Thompson DO) Metastatic adenocarcinoma to brain Insomnia Hyponatremia Secondary malignant neoplasm of bone Anemia Prediabetes Family history of melanoma History of colonic polyps Basal cell carcinoma Prostate cancer (~2020) Other and unspecified hyperlipidemia Osteoarthritis of knee, unspecified <Nuvia Villarreal APRN - Last Filed: 11/15/24 20:42> Surgical History Surgical History: Surgical History (Updated 11/15/24 @ 22:25 by Loyda Thompson DO) Status post cataract extraction of both eyes with insertion of intraocular lens (2023) Port-A-Cath in place (09/17/24) History of craniotomy (10/20/24) left frontal lobe lesion resection History of tonsillectomy <Nuvia Villarreal APRN - Last Filed: 11/15/24 20:42> Family History Family History: Family History (Updated 11/15/24 @ 22:41 by Dillan Padilla RN) Father Acute myocardial infarction Heart disease Mother Breast cancer Sibling Melanoma <Nuvia Villarreal APRN - Last Filed: 11/15/24 20:42> Social History Social History: Social History (Updated 11/15/24 @ 22:27 by Loyda Thompson DO) Social History: Code status: Full code Smoking packs per day: 1 Smoking cigarettes per day: 20.0 Years smoked: 40 Smoking pack-years: 40.00 Smoking status: Former smoker Tobacco type: cigarettes Second hand tobacco smoke exposure: No Smoking end date: 07/11/99 Alcohol intake: current Drinks per week: 21 Alcohol use details: Liquor Substance use: never Substance use type: does not use Do You Feel Safe in your Home?: Yes Lack of Transportation: No Lack of Food: Never True Current Housing: I Have Housing Concerned About Future Housing: No Difficulty Paying Gas/Electric Bills: No Difficulty Paying for Meds: No Currently Unemployed: No Education: High School Diploma/GED Difficulty w/ Childcare or Family Care: No Living arrangements: with family Additional living arrangements comments: Occupation/Education: retired Gender identity (if verbalized by the patient): Male Sexual Orientation (if Verbalized by the Patient): Straight or Heterosexual Spiritual care concerns: No Agree to blood products: Yes <Nuvia Villarreal APRN - Last Filed: 11/15/24 20:42> Exam Narrative: GENERAL: Ill- appearing, well-nourished, non-toxic, in mild respiratory distress. HEAD: Normocephalic, atraumatic. NECK: Supple. No adenopathy, no masses. RESPIRATORY: Airway patent, respirations mildly labored. Patient on 4 L nasal cannula at time of examination. Wheezing to all lobes upon auscultation, no audible rales, rhonchi CARDIOVASCULAR: Tachycardia without murmurs, rubs, or gallops. Peripheral pulses 2+ and equal bilaterally. ABDOMINAL: Soft, nontender, nondistended, no hepatosplenomegaly. Normoactive BS. MUSCULOSKELETAL: Moves all extremities. Strength/ROM intact without gross deformities. SKIN: Warm, dry, normal color. No rashes. NEURO: A&O X3. Speech clear. Cranial nerves II-XII intact. No ataxic movements. PSYCHIATRIC: Appropriate mood and affect. Normal interaction. <Nuvia Villarreal APRN - Last Filed: 11/15/24 20:42> Course GROUP SUPERVISOR YARD/PA Physician Supervision Patient's HPI, Exam, and MDM were reviewed and I agreed with the workup and disposition done in the emergency department by the MLP. I was available for consultation and provided my own recommendations and evaluation plan as outlined in the MDM. <Alfonso Vee MD - Last Filed: 11/15/24 23:50> Vital Signs Vital signs: Vital Signs Temperature 38.1 C H 11/15/24 17:12 Pulse Rate 106 H 11/15/24 17:12 Respiratory Rate 34 H 11/15/24 17:12 Blood Pressure 125/71 11/15/24 17:12 Pulse Oximetry 74 L 11/15/24 17:12 Temperature 36.8 C 11/15/24 20:46 Pulse Rate 81 11/15/24 21:36 Respiratory Rate 22 H 11/15/24 21:36 Blood Pressure 118/79 11/15/24 21:36 Pulse Oximetry 94 11/15/24 23:35 Oxygen Delivery Nasal Cannula 11/15/24 23:35 Oxygen Flow Rate 6 11/15/24 23:35 <Nuvia Villarreal APRN - Last Filed: 11/15/24 20:42> Vital Signs Temperature 38.1 C H 11/15/24 17:12 Pulse Rate 106 H 11/15/24 17:12 Respiratory Rate 34 H 11/15/24 17:12 Blood Pressure 125/71 11/15/24 17:12 Pulse Oximetry 74 L 11/15/24 17:12 Temperature 36.8 C 11/15/24 20:46 Pulse Rate 81 11/15/24 21:36 Respiratory Rate 22 H 11/15/24 21:36 Blood Pressure 118/79 11/15/24 21:36 Pulse Oximetry 94 11/15/24 23:35 Oxygen Delivery Nasal Cannula 11/15/24 23:35 Oxygen Flow Rate 6 11/15/24 23:35 <Alfonso Vee MD - Last Filed: 11/15/24 23:50> MDM - SOB/Dyspnea MDM Narrative Medical decision making narrative: Patient is a 78-year-old male who presents to the ER with of cough and shortness of breath. He was recently diagnosed with a brain tumor and had brain surgery. Patient was discharged from [facility] and will be following up with Oncology for further treatment of his cancer. He reports he started experiencing shortness of breath this morning around 5:00 a.m.. Patient reports yesterday his home health nurse came to assess him and his oxygen saturation was in the mid is 70s. It is unclear why patient did not present to the ER for evaluation sooner. His reports he has had a cough and some wheezing over the past couple days. She reports she gave him Tylenol once and Zyrtec. Patient was also recently diagnosed with diabetes and started on metformin within the past week. He denies any back pain, abdominal pain, or urinary symptoms. Labs Ordered: CBC, CMP, PTT, magnesium, ESR, troponin, INR, lactic acid, proBNP, UA Imaging Ordered: chest x-ray, CTA PE scan Results: Pt's x-ray indicates Right internal jugular central venous port catheter identified with its tip projecting over the cavoatrial junction. The apex of the catheter is not visualized on the submitted images, likely secondary to its high access site. The remainder of the cardiomediastinal silhouette is obscured. Redemonstration of a large left-sided pleural effusion with adjacent consolidation. Patchy opacification of the right hilum is noted. Pt's CT scan indicates No pulmonary embolus. No thoracic aortic dissection. Findings bilaterally consistent with patient's known malignancy. Interval development of a large left-sided pleural effusion, likely contributing to patient's hypoxia as this is an interval change from 08/02/2024 examination. Medications Ordered: Tylenol 1 g (fever), DuoNeb, vancomycin, methylprednisolone IV, 1 L normal saline IV bolus x 2, Zosyn IV Diagnosis: Elevated troponin, pleural effusion, pneumonia, malignancy multiple sites Consults: oncology (Dr. Brown) Patient Education/Shared MDM: Results of lab work shared with patient. It was advised pt be admitted to the hospital. Patient in his family verbalized understanding and are in agreement with plan. 2030-Spoke with Dr. Thompson, hospitalist, who is in agreement with accepting patient. She requested patient be started on Zosyn IV. Patient should be admitted to the IMU. <Nuvia Villarreal, LILIAN - Last Filed: 11/15/24 20:42> Differential Diagnosis Differential diagnosis: Likely acute exacerbation of chronic obstructive airways disease, congestive heart failure, community acquired pneumonia and pulmonary embolism <Nuvia Villarreal APRN - Last Filed: 11/15/24 20:42> Lab Data Attestation: I reviewed the patient's lab results. <Nuvia Hua Phil, LILIAN - Last Filed: 11/15/24 20:42> Result diagrams: 11/15/24 17:43 11/15/24 17:43 <Nuvia Hua LILIAN Villarreal - Last Filed: 11/15/24 20:42> Labs: Lab Results 11/15/24 11/15/24 11/15/24 Range/Units 17:43 17:43 17:45 WBC 9.3 (4.5-10.0) K/mm3 RBC 3.48 L (4.6-6.20) M/mm3 Hgb 8.1 L (14.0-18.0) g/dL Hct 27.7 L (42.0-52.0) % MCV 79.6 L (80-100) fl MCH 23.3 L (26-34) pg MCHC 29.2 L (32-36) g/dl RDW 22.1 H (11.5-14.5) % Plt Count 299 (150-375) k/mm3 MPV 8.7 (7.4-10.4) fl Immature Gran % (Auto) 4.1 H (0-0.5) % Neut % (Auto) 81.6 H (45.5-73.1) % Lymph % (Auto) 7.9 L (18.3-44.2) % Nobles % (Auto) 5.6 (2.6-8.5) % Eos % (Auto) 0.6 (0-4.4) % Baso % (Auto) 0.2 (0.2-1.2) % Lymph # (Auto) 0.73 L (0.9-3.2) K/mm3 Nobles # (Auto) 0.5 (0.1-0.6) K/mm3 Eos # (Auto) 0.1 (0-0.3) K/mm3 Baso # (Auto) 0.0 (0.0-0.1) K/mm3 Abs Immat Gran (auto) 0.38 H (0.00-0.031) K/mm3 Absolute Neuts (auto) 7.6 H (1.3-6.7) K/mm3 Absolute Nucleated RBC 0.030 H (0.0-0.012) K/mm3 Band Neutrophils % 0 (0-6) % Nucleated RBC % 0.3 H (0.0-0.2) % Platelet Estimate Adequate (Adequate) Anisocytosis 1+ Ovalocytes 1+ Schistocytes None seen ESR > 140 H (0-20) mm/hr PT 15.7 H (11.1-14.7) Seconds INR 1.2 APTT 32.8 (22.3-36.8) Seconds Sodium 134 L (137-145) mmol/L Potassium 3.5 (3.4-5.0) mmol/L Chloride 99 (98-107) mmol/L Carbon Dioxide 29 (22-30) mmol/L Anion Gap 6 (4-12) mmol/L BUN 12 (9-20) mg/dL Creatinine 0.52 L (0.7-1.3) mg/dL Estim Creat Clear Calc 95 ml/min Estimated GFR > 60 (59 - ) Glucose 117 H (65-110) mg/dL Lactic Acid 1.5 (0.7-2.0) mmol/L Calcium 7.5 L (8.4-10.2) mg/dL Magnesium 2.1 (1.6-2.3) mg/dL Total Bilirubin 0.8 (0.2-1.3) mg/dL AST 28 (17-59) U/L ALT 22 (6-50) U/L Alkaline Phosphatase 109 (38-126) U/L Troponin I 0.039 H* (0.000-0.034) ng/mL C-Reactive Protein 26.9 H Cancelled (<1.0) mg/dL NT-Pro-B Natriuret Pep 1920 H (19.9-100) pg/mL Total Protein 6.0 L (6.3-8.2) g/dL Albumin 2.9 L (3.5-5.1) g/dL Procalcitonin 0.4 ng/mL Nasal MRSA (PCR) (NOT DETECTE) 11/15/24 Range/Units 18:00 WBC (4.5-10.0) K/mm3 RBC (4.6-6.20) M/mm3 Hgb (14.0-18.0) g/dL Hct (42.0-52.0) % MCV (80-100) fl MCH (26-34) pg MCHC (32-36) g/dl RDW (11.5-14.5) % Plt Count (150-375) k/mm3 MPV (7.4-10.4) fl Immature Gran % (Auto) (0-0.5) % Neut % (Auto) (45.5-73.1) % Lymph % (Auto) (18.3-44.2) % Nobles % (Auto) (2.6-8.5) % Eos % (Auto) (0-4.4) % Baso % (Auto) (0.2-1.2) % Lymph # (Auto) (0.9-3.2) K/mm3 Nobles # (Auto) (0.1-0.6) K/mm3 Eos # (Auto) (0-0.3) K/mm3 Baso # (Auto) (0.0-0.1) K/mm3 Abs Immat Gran (auto) (0.00-0.031) K/mm3 Absolute Neuts (auto) (1.3-6.7) K/mm3 Absolute Nucleated RBC (0.0-0.012) K/mm3 Band Neutrophils % (0-6) % Nucleated RBC % (0.0-0.2) % Platelet Estimate (Adequate) Anisocytosis Ovalocytes Schistocytes ESR (0-20) mm/hr PT (11.1-14.7) Seconds INR APTT (22.3-36.8) Seconds Sodium (137-145) mmol/L Potassium (3.4-5.0) mmol/L Chloride (98-107) mmol/L Carbon Dioxide (22-30) mmol/L Anion Gap (4-12) mmol/L BUN (9-20) mg/dL Creatinine (0.7-1.3) mg/dL Estim Creat Clear Calc ml/min Estimated GFR (59 - ) Glucose (65-110) mg/dL Lactic Acid (0.7-2.0) mmol/L Calcium (8.4-10.2) mg/dL Magnesium (1.6-2.3) mg/dL Total Bilirubin (0.2-1.3) mg/dL AST (17-59) U/L ALT (6-50) U/L Alkaline Phosphatase (38-126) U/L Troponin I (0.000-0.034) ng/mL C-Reactive Protein (<1.0) mg/dL NT-Pro-B Natriuret Pep (19.9-100) pg/mL Total Protein (6.3-8.2) g/dL Albumin (3.5-5.1) g/dL Procalcitonin ng/mL Nasal MRSA (PCR) Not detected (NOT DETECTE) <Nuvia MaceAlex Villarreal, TILT WALL SUPERVISOR - Last Filed: 11/15/24 20:42> Lab Results 11/15/24 11/15/24 11/15/24 Range/Units 17:43 17:43 17:45 WBC 9.3 (4.5-10.0) K/mm3 RBC 3.48 L (4.6-6.20) M/mm3 Hgb 8.1 L (14.0-18.0) g/dL Hct 27.7 L (42.0-52.0) % MCV 79.6 L (80-100) fl MCH 23.3 L (26-34) pg MCHC 29.2 L (32-36) g/dl RDW 22.1 H (11.5-14.5) % Plt Count 299 (150-375) k/mm3 MPV 8.7 (7.4-10.4) fl Immature Gran % (Auto) 4.1 H (0-0.5) % Neut % (Auto) 81.6 H (45.5-73.1) % Lymph % (Auto) 7.9 L (18.3-44.2) % Nobles % (Auto) 5.6 (2.6-8.5) % Eos % (Auto) 0.6 (0-4.4) % Baso % (Auto) 0.2 (0.2-1.2) % Lymph # (Auto) 0.73 L (0.9-3.2) K/mm3 Nobles # (Auto) 0.5 (0.1-0.6) K/mm3 Eos # (Auto) 0.1 (0-0.3) K/mm3 Baso # (Auto) 0.0 (0.0-0.1) K/mm3 Abs Immat Gran (auto) 0.38 H (0.00-0.031) K/mm3 Absolute Neuts (auto) 7.6 H (1.3-6.7) K/mm3 Absolute Nucleated RBC 0.030 H (0.0-0.012) K/mm3 Band Neutrophils % 0 (0-6) % Nucleated RBC % 0.3 H (0.0-0.2) % Platelet Estimate Adequate (Adequate) Anisocytosis 1+ Ovalocytes 1+ Schistocytes None seen ESR > 140 H (0-20) mm/hr PT 15.7 H (11.1-14.7) Seconds INR 1.2 APTT 32.8 (22.3-36.8) Seconds Sodium 134 L (137-145) mmol/L Potassium 3.5 (3.4-5.0) mmol/L Chloride 99 (98-107) mmol/L Carbon Dioxide 29 (22-30) mmol/L Anion Gap 6 (4-12) mmol/L BUN 12 (9-20) mg/dL Creatinine 0.52 L (0.7-1.3) mg/dL Estim Creat Clear Calc 95 ml/min Estimated GFR > 60 (59 - ) Glucose 117 H (65-110) mg/dL Lactic Acid 1.5 (0.7-2.0) mmol/L Calcium 7.5 L (8.4-10.2) mg/dL Magnesium 2.1 (1.6-2.3) mg/dL Total Bilirubin 0.8 (0.2-1.3) mg/dL AST 28 (17-59) U/L ALT 22 (6-50) U/L Alkaline Phosphatase 109 (38-126) U/L Troponin I 0.039 H* (0.000-0.034) ng/mL C-Reactive Protein 26.9 H Cancelled (<1.0) mg/dL NT-Pro-B Natriuret Pep 1920 H (19.9-100) pg/mL Total Protein 6.0 L (6.3-8.2) g/dL Albumin 2.9 L (3.5-5.1) g/dL Procalcitonin 0.4 ng/mL Nasal MRSA (PCR) (NOT DETECTE) 11/15/24 Range/Units 18:00 WBC (4.5-10.0) K/mm3 RBC (4.6-6.20) M/mm3 Hgb (14.0-18.0) g/dL Hct (42.0-52.0) % MCV (80-100) fl MCH (26-34) pg MCHC (32-36) g/dl RDW (11.5-14.5) % Plt Count (150-375) k/mm3 MPV (7.4-10.4) fl Immature Gran % (Auto) (0-0.5) % Neut % (Auto) (45.5-73.1) % Lymph % (Auto) (18.3-44.2) % Nobles % (Auto) (2.6-8.5) % Eos % (Auto) (0-4.4) % Baso % (Auto) (0.2-1.2) % Lymph # (Auto) (0.9-3.2) K/mm3 Nobles # (Auto) (0.1-0.6) K/mm3 Eos # (Auto) (0-0.3) K/mm3 Baso # (Auto) (0.0-0.1) K/mm3 Abs Immat Gran (auto) (0.00-0.031) K/mm3 Absolute Neuts (auto) (1.3-6.7) K/mm3 Absolute Nucleated RBC (0.0-0.012) K/mm3 Band Neutrophils % (0-6) % Nucleated RBC % (0.0-0.2) % Platelet Estimate (Adequate) Anisocytosis Ovalocytes Schistocytes ESR (0-20) mm/hr PT (11.1-14.7) Seconds INR APTT (22.3-36.8) Seconds Sodium (137-145) mmol/L Potassium (3.4-5.0) mmol/L Chloride (98-107) mmol/L Carbon Dioxide (22-30) mmol/L Anion Gap (4-12) mmol/L BUN (9-20) mg/dL Creatinine (0.7-1.3) mg/dL Estim Creat Clear Calc ml/min Estimated GFR (59 - ) Glucose (65-110) mg/dL Lactic Acid (0.7-2.0) mmol/L Calcium (8.4-10.2) mg/dL Magnesium (1.6-2.3) mg/dL Total Bilirubin (0.2-1.3) mg/dL AST (17-59) U/L ALT (6-50) U/L Alkaline Phosphatase (38-126) U/L Troponin I (0.000-0.034) ng/mL C-Reactive Protein (<1.0) mg/dL NT-Pro-B Natriuret Pep (19.9-100) pg/mL Total Protein (6.3-8.2) g/dL Albumin (3.5-5.1) g/dL Procalcitonin ng/mL Nasal MRSA (PCR) Not detected (NOT DETECTE) <Alfonso Vee MD - Last Filed: 11/15/24 23:50> Imaging Data Attestation: I personally reviewed and interpreted this imaging study as follows: <Nuvia Villarreal APRN - Last Filed: 11/15/24 20:42> Radiologist's impression: Impressions Chest X-Ray 11/15/24 18:55 IMPRESSION: Redemonstration of a large left-sided pleural effusion with adjacent consolidation. Right hilar infiltrate is also suspected. Chest CTA 11/15/24 19:34 IMPRESSION: No pulmonary embolus. No thoracic aortic dissection. 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 Interval development of a large left-sided pleural effusion, likely contributing to patient's hypoxia as this is an interval change from 08/02/2024 examination. 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
[2024-11-15] MEDS: ACETAMINOPHEN 500 MG TABLET 1000 MG PO (17:49)
[2024-11-15] MEDS: methylPREDNISolone SOD SUCC 125 MG VIAL IV PUSH (17:49)
[2024-11-15] MEDS: SODIUM CHLORIDE 0.9% IV 1,000 ML 999 ML IV CONT (17:49)
[2024-11-15 17:54] LABS: Basophils Percent Auto 0.2 % (0.2-1.2); Eosinophils Absolute Auto 0.1 K/mm3 (0-0.3); Eosinophils Percent Auto 0.6 % (0-4.4); Hematocrit 27.7 % (42.0-52.0); Hemoglobin 8.1 g/dL (14.0-18.0); Immature Granulocyte Absolute 0.38 K/mm3 (0.00-0.031); Immature Granulocyte Percent A 4.1 % (0-0.5); Lymphocytes Absolute Auto 0.73 K/mm3 (0.9-3.2); Lymphocytes Percent Auto 7.9 % (18.3-44.2); Mean Corpuscular HGB Conc 29.2 g/dl (32-36); Mean Corpuscular Hemoglobin 23.3 pg (26-34); Mean Corpuscular Volume 79.6 fl (80-100); Mean Platelet Volume 8.7 fl (7.4-10.4); Monocytes Absolute Auto 0.5 K/mm3 (0.1-0.6); Monocytes Percent Auto 5.6 % (2.6-8.5); Neutrophils Absolute Auto 7.6 K/mm3 (1.3-6.7); Neutrophils Percent Auto 81.6 % (45.5-73.1); Nucleated Red Blood Cells Perc 0.3 % (0.0-0.2); Platelet Count Result 299 k/mm3 (150-375); Red Blood Count 3.48 M/mm3 (4.6-6.20); Red Cell Distribution Width 22.1 % (11.5-14.5); White Blood Count 9.3 K/mm3 (4.5-10.0)
[2024-11-15 18:06] LABS: INR 1.2; Lactic Acid Reflex 1.5 mmol/L (0.7-2.0); Prothrombin Time 15.7 Seconds (11.1-14.7)
[2024-11-15 18:07] LABS: Partial Thromboplastin Time 32.8 Seconds (22.3-36.8)
[2024-11-15 18:09] LABS: Alanine Aminotransferase 22 U/L (6-50); Albumin Level 2.9 g/dL (3.5-5.1); Alkaline Phosphatase 109 U/L (38-126); Anion Gap 6 mmol/L (4-12); Aspartate Amino Transferase 28 U/L (17-59); Bilirubin,Total 0.8 mg/dL (0.2-1.3); Blood Urea Nitrogen 12 mg/dL (9-20); Calcium 7.5 mg/dL (8.4-10.2); Carbon Dioxide 29 mmol/L (22-30); Chloride 99 mmol/L (98-107); Estimated CRCL calculation 95 ml/min; Estimated Glomerular Filt Rate > 60; Glucose 117 mg/dL (65-110); Magnesium 2.1 mg/dL (1.6-2.3); Potassium 3.5 mmol/L (3.4-5.0); Sodium 134 mmol/L (137-145)
[2024-11-15 18:17] LABS: Band Neutrophils Percent 0 % (0-6); Platelet Estimate Adequate (Adequate)
[2024-11-15 18:18] LABS: Anisocytosis 1+; Ovalocytes 1+; Schistocytes None Seen
[2024-11-15 18:19] LABS: NT Pro B Type Natriuretic Pept 1920 pg/mL (19.9-100)
[2024-11-15 18:21] LABS: Troponin I 0.039 ng/mL (0.000-0.034)
[2024-11-15 18:22] LABS: CRP 26.9 mg/dL (<1.0)
[2024-11-15 18:44] LABS: Erythrocyte Sedimentation Rate > 140 mm/hr (0-20)
[2024-11-15 19:17] LABS: MRSA (PCR) NOT DETECTED (NOT DETECTE)
[2024-11-15] MEDS: VANCOMYCIN 2,000 MG/NS 500 ML 2,000 MG/500 ML BAG 250 MG IVPB (19:37)
[2024-11-15 21:20] LABS: Add Urine Microscopic? YES; Appearance Urine Clear (Clear); Bacteria Urine None Seen /hpf; Bilirubin Urine Negative (Negative); Blood Urine Negative (Negative); Color Urine Yellow (Yellow); Glucose Urine UA Negative (Negative); Ketones Urine Trace mg/dL (Negative); Leukocyte Esterase Ur Negative LEU/UL (Negative); Need Manual Microscopic Reviewed; Nitrate Urine Negative (Negative); Non Pathogenic Casts 0-2; Protein Urine Trace mg/dL (Negative); RBC Urine 0-2 /hpf (0-2); Specific Grav Ur > 1.045 (1.001-1.035); Squamous Epithelial Cell Urine None Seen /hpf (Few); WBC Urine 0-5 /hpf (0-3); pH Urine 6.5 (5.0-9.0)
[2024-11-15] MEDS: PIPERACILLN/TAZ 3.375GM/NS50ML 3.375 GM/50 ML BAG IVPB (21:47)
--- NOTE | 2024-11-15 22:00 | P.HP_ITS ---
H&P: HPI History of Present Illness Date/Time: 11/15/24 22:00 Chief Complaint: Shortness of breath Narrative: 78-year-old male with a past medical history of 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 ER reported that the patient was evaluated by his home health nurse yesterday and his oxygen saturations were in the mid 70s. (although review of patient's physical therapy record from the demonstrates patient's oxygen saturation was 90% at rest and dropped to 85% during hip adduction exercises. The patient required several minutes of pursed lip breathing with return of oxygen saturations to 90%.) The Patient patient's reports he had been having some cough and wheezing over the last couple of days. The patient denies history of COPD or tobacco use but review of past medical records demonstrates patient does have a distant history of 25 pack per day smoking history with quit date in 1999. His given Tylenol and Zyrtec without improvement in symptoms. He became more acutely short of breath around 05:00 and then presented to the ER around 17:00 today. On arrival to the ER patient was noted to be satting 74% on room air. He was placed on 6 L nasal cannula with improvement in oxygen saturations to 94%. On arrival to the ER he was noted to have a T-max of 100.5°. He was mildly tachypneic and was initially mildly tachycardic. He reports that he is chronically chilled. He has not measured his temperature at home. He denies feeling fevers. He reports ever since he had his craniotomy he has just been generally weak and has been declining in general condition. He is feeling quite fatigued. He denies any headache or vision changes. He reports that food does not taste good and he has developed significant anorexia. He denies dysphagia or sensation of globus. He has not had any nausea or vomiting. Patient's med rec list that he is on Keppra which I suspect was started after his recent surgery and was filled within the last 8 days. However this does not correlate with the patient's 's report of the patient's home meds. The patient reports that he takes Tylenol p.m. for insomnia. It looks like he was also recently prescribed Remeron for insomnia. He does also take omeprazole but denies any increasing GERD symptoms. He does have a prescription for Zofran but again has not been having any nausea. He is not currently on chemotherapy. He reports that he was not supposed be started back on chemotherapy until his craniotomy wound had healed completely. He states that they would discuss restarting his chemotherapy after he had follow- up with the neurosurgeon. Chest x-ray and CTA of the chest were performed in the ER which demonstrated no pulmonary embolism but bilateral findings consistent with patient's history of malignancy and interval development of large left pleural effusion. Review of Systems 2 Review of Systems: 12 systems were reviewed with pertinent positives and negatives per HPI. Except as documented in the HPI, all other systems were reviewed and are negative. He reports that he does snore but does not have known history of sleep apnea. [facility] Past Medical History Medical History (Updated 11/15/24 @ 22:33 by Loyda Thompson DO) Metastatic adenocarcinoma to brain Insomnia Hyponatremia Secondary malignant neoplasm of bone Anemia Prediabetes Family history of melanoma History of colonic polyps Basal cell carcinoma Prostate cancer (~2020) Other and unspecified hyperlipidemia Osteoarthritis of knee, unspecified Surgical History Surgical History (Updated 11/15/24 @ 22:25 by Loyda Thompson DO) Status post cataract extraction of both eyes with insertion of intraocular lens (2023) Port-A-Cath in place (09/17/24) History of craniotomy (10/20/24) left frontal lobe lesion resection History of tonsillectomy Family History Family History Father Acute myocardial infarction Heart disease Mother Breast cancer Sibling Melanoma Social History Social History (Updated 11/16/24 @ 08:36 by Loyda Thompson DO) Social History: 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 He lives with his of 58 years. They raised 3 sons. Patient has smoked 1 pack of cigarettes per day for 35-40 years but quit smoking in 1999. He used to drink 2 alcoholic beverages a night but has cut back since his recent illness. He denies history of illicit substance use. He has been ambulating with a walker since he was discharged from the hospital in October at following his craniotomy. Code status: Full code (the patient initially told me that he did not want to be intubated but when discussing cardiac resuscitation he stated that he would defer all decisions to his son Chente. He stated that Chente would not do something that was not necessary any wants him to make the his decisions for him. Smoking packs per day: 1 Smoking cigarettes per day: 20.0 Years smoked: 40 Smoking pack-years: 40.00 Smoking status: Former smoker Tobacco type: cigarettes Second hand tobacco smoke exposure: No Smoking end date: 07/11/99 Alcohol intake: current Drinks per week: 21 Alcohol use details: Liquor Substance use: never Substance use type: does not use Do You Feel Safe in your Home?: Yes Lack of Transportation: No Lack of Food: Never True Current Housing: I Have Housing Concerned About Future Housing: No Difficulty Paying Gas/Electric Bills: No Difficulty Paying for Meds: No Currently Unemployed: No Education: High School Diploma/GED Difficulty w/ Childcare or Family Care: No Living arrangements: with family Additional living arrangements comments: Occupation/Education: retired Gender identity (if verbalized by the patient): Male Sexual Orientation (if Verbalized by the Patient): Straight or Heterosexual Spiritual care concerns: No Agree to blood products: Yes Meds Home Medications and Allergies Home Medications Medication Instructions Recorded Confirmed Type ergocalciferol (vitamin D2) 1,250 1,250 mcg PO WEEKLY #12 caps 08/02/24 11/15/24 Rx mcg (50,000 unit) capsule simvastatin 40 mg tablet 40 mg PO QHS #90 tabs 10/10/24 11/15/24 Rx cyanocobalamin (vitamin B-12) 250 250 mcg PO DAILY 11/05/24 11/15/24 History mcg tablet ferrous sulfate 325 mg (65 mg 325 mg PO DAILY 11/05/24 11/15/24 History iron) tablet lidocaine-prilocaine 2.5 %-2.5 % 1 applic topical ONCE 11/05/24 11/15/24 History topical cream mirtazapine 7.5 mg tablet 7.5 mg PO QHS 11/05/24 11/16/24 History omeprazole magnesium 20 mg 20 mg PO DAILY 11/05/24 11/15/24 History tablet,delayed release ondansetron 8 mg disintegrating 8 mg PO ONCE 11/05/24 11/15/24 History tablet metformin 500 mg tablet,extended 500 mg PO QPM #100 tabs 11/07/24 11/15/24 Rx release 24 hr (Glucophage XR) dexamethasone 4 mg tablet 4 mg PO DAILY 11/15/24 11/15/24 History escitalopram oxalate 5 mg tablet 5 mg PO DAILY #90 tabs 11/16/24 Rx (Lexapro) Allergies Allergy/AdvReac Type Severity Reaction Status Date / Time No Known Allergies Allergy Verified 11/05/24 08:23 Vital Signs Vital Signs - 24 hr 11/15/24 17:12 11/15/24 17:17 11/15/24 17:30 Temperature 100.5 F H Pulse Rate 106 H 104 H Respiratory Rate 34 H 26 H Blood Pressure 125/71 Pulse Oximetry 74 L 93 97 Oxygen Delivery Nasal Cannula Oxygen Flow Rate 6 11/15/24 17:30 11/15/24 17:53 11/15/24 17:55 Temperature Pulse Rate 98 106 H Respiratory Rate 24 H 24 H Blood Pressure Pulse Oximetry 97 Oxygen Delivery Nasal Cannula Oxygen Flow Rate 6 11/15/24 18:15 11/15/24 18:46 11/15/24 19:01 Temperature Pulse Rate 103 H 100 101 H Respiratory Rate 24 H 20 20 Blood Pressure 122/63 117/65 114/63 Pulse Oximetry 100 100 94 Oxygen Delivery Oxygen Flow Rate 11/15/24 20:46 11/15/24 21:36 Temperature 98.2 F Pulse Rate 89 81 Respiratory Rate 22 H 22 H Blood Pressure 118/70 118/79 Pulse Oximetry 94 94 Oxygen Delivery Oxygen Flow Rate Exam 2 Narrative: Weight 77 kg BMI 25.1 Const: Other: Acute on chronic ill-appearing, elderly, debilitated, no overt distress HENMT: Other: Craniotomy scar over the top of the head extending to the right frontal scalp appears to be well healed with some remaining scab formation, Mucous membranes are tacky, no oral pharyngeal erythema, head is normocephalic atraumatic, nasal cannula in place Eyes: Other: Pupils are equal and reactive, positive conjunctival pallor, no scleral icterus Neck: Other: No JVD, no overt lymphadenopathy trachea midline Resp: Other: Diffuse wheezing bilateral anterior and posterior lung pinon, conversational tachypnea Cardio: Other: Regular rate, regular rhythm, 2+ bilateral radial pedal pulses GI: Other: Soft, nontender, nondistended, positive bowel sounds : Other: Continent of urine Back/Spine/Pelvis: Other: Mild thoracic kyphosis Skin: Other: Generalized pallor, non jaundice, warm to touch Neuro: Other: Alert orient x4, speech is clear, no facial asymmetry, no localizing neurologic deficits noted during the course of conversation Extrem: Other: No clubbing, cyanosis or edema, moves all extremities equally, generalized muscle wasting Psych: Other: Appropriate mood and affect, pleasant and cooperative, judgment and insight intact H&P: Results Labs Labs: Laboratory Tests 11/15/24 17:43 11/15/24 17:43 11/15/24 11/15/24 11/15/24 17:43 17:43 18:00 WBC 9.3 RBC 3.48 L Hgb 8.1 L Hct 27.7 L MCV 79.6 L MCH 23.3 L MCHC 29.2 L RDW 22.1 H Plt Count 299 MPV 8.7 Immature Gran % (Auto) 4.1 H Neut % (Auto) 81.6 H Lymph % (Auto) 7.9 L [place] % (Auto) 5.6 Eos % (Auto) 0.6 Baso % (Auto) 0.2 Lymph # (Auto) 0.73 L [place] # (Auto) 0.5 Eos # (Auto) 0.1 Baso # (Auto) 0.0 Abs Immat Gran (auto) 0.38 H Absolute Neuts (auto) 7.6 H Absolute Nucleated RBC 0.030 H Band Neutrophils % 0 Nucleated RBC % 0.3 H Platelet Estimate Adequate Anisocytosis 1+ Ovalocytes 1+ Schistocytes None seen ESR > 140 H PT 15.7 H INR 1.2 APTT 32.8 Sodium 134 L Potassium 3.5 Chloride 99 Carbon Dioxide 29 Anion Gap 6 BUN 12 Creatinine 0.52 L Estim Creat Clear Calc 95 Estimated GFR > 60 Glucose 117 H Lactic Acid 1.5 Calcium 7.5 L Magnesium 2.1 Total Bilirubin 0.8 AST 28 ALT 22 Alkaline Phosphatase 109 Troponin I 0.039 H* C-Reactive Protein 26.9 H Cancelled NT-Pro-B Natriuret Pep 1920 H Total Protein 6.0 L Albumin 2.9 L Urine Color Urine Appearance Urine pH Ur Specific [place] Urine Protein Urine Glucose (UA) Urine Ketones Ur Blood (Man) Urine Nitrate Urine Bilirubin Urine Urobilinogen Add Ur Microanalysis Leukocyte Esterase Rfl Urine RBC Urine WBC Ur Squamous Epith Cells Urine Bacteria Urine Casts Nasal MRSA (PCR) Not detected 11/15/24 20:45 WBC RBC Hgb Hct MCV MCH MCHC RDW Plt Count MPV Immature Gran % (Auto) Neut % (Auto) Lymph % (Auto) [place] % (Auto) Eos % (Auto) Baso % (Auto) Lymph # (Auto) [place] # (Auto) Eos # (Auto) Baso # (Auto) Abs Immat Gran (auto) Absolute Neuts (auto) Absolute Nucleated RBC Band Neutrophils % Nucleated RBC % Platelet Estimate Anisocytosis Ovalocytes Schistocytes ESR PT INR APTT Sodium Potassium Chloride Carbon Dioxide Anion Gap BUN Creatinine Estim Creat Clear Calc Estimated GFR Glucose Lactic Acid Calcium Magnesium Total Bilirubin AST ALT Alkaline Phosphatase Troponin I C-Reactive Protein NT-Pro-B Natriuret Pep Total Protein Albumin Urine Color Yellow Urine Appearance Clear Urine pH 6.5 Ur Specific [place] > 1.045 H Urine Protein Trace Urine Glucose (UA) Negative Urine Ketones Trace H Ur Blood (Man) Negative Urine Nitrate Negative Urine Bilirubin Negative Urine Urobilinogen 1.0 Add Ur Microanalysis Reviewed Leukocyte Esterase Rfl Negative Urine RBC 0-2 Urine WBC 0-5 Ur Squamous Epith Cells None seen Urine Bacteria None seen Urine Casts 0-2 Nasal MRSA (PCR) Impressions Chest X-Ray 11/15/24 18:55 IMPRESSION: Redemonstration of a large left-sided pleural effusion with adjacent consolidation. Right hilar infiltrate is also suspected. Chest CTA 11/15/24 19:34 IMPRESSION: No pulmonary embolus. No thoracic aortic dissection. 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 Interval development of a large left-sided pleural effusion, likely contributing to patient's hypoxia as this is an interval change from 08/02/2024 examination. EKG: Personally reviewed interpreted rate 98 sinus rhythm QTC 429. Cardiology interpretation pending All imaging and EKGs personally reviewed and interpreted. And unless stated otherwise agree with radiologic and cardiology interpretation. Assessment and Plan Assessment and plan (1) Pneumonia: Qualifiers: Laterality: left Lung location: unspecified part of lung Pneumonia type: due to unspecified organism Qualified Code(s): J18.9 - Pneumonia, unspecified organism Code(s): J18.9 - Pneumonia, unspecified organism Status: Acute (2) Acute hypoxic respiratory failure: Code(s): J96.01 - Acute respiratory failure with hypoxia Status: Acute (3) Sepsis: Qualifiers: Acute respiratory failure type: with hypoxia Sepsis acute organ dysfunction status: with acute organ dysfunction Sepsis type: sepsis due to unspecified organism Severe sepsis acute organ dysfunction type: acute respiratory failure Severe sepsis shock status: without septic shock Qualified Code(s): A41.9 - Sepsis, unspecified organism; R65.20 - Severe sepsis without septic shock; J96.01 - Acute respiratory failure with hypoxia Code(s): A41.9 - Sepsis, unspecified organism Status: Acute (4) Elevated troponin: Code(s): R79.89 - Other specified abnormal findings of blood chemistry Status: Acute (5) Metastatic adenocarcinoma to brain: Code(s): C79.31 - Secondary malignant neoplasm of brain Status: Acute Assessment and Plan: With prostate cancer being primary with metastases also to the liver and lung. Plan Patient presents with acute hypoxic respiratory failure due to large pleural effusion. Pleural few is most likely suspected to be due to malignancy but could also be secondary to from inflammation due to pneumonia. Cannot completely rule out empyema given patient's elevated temperature, tachycardia and tachypnea. Will place patient on broad-spectrum antibiotic coverage. Given that the patient has recently had hospitalization and craniotomy concerns for possible healthcare associated pneumonia versus aspiration pneumonia or pneumonia due to immunocompromised state her all possibilities. Blood cultures have been obtained and are pending. Will will request IR consult for ultrasound-guided thoracentesis with Gram stain, cultures glucose, fluid pH and cytology. Will place patient on scheduled DuoNeb treatments given the patient's wheezing and history of tobacco use he could have some underlying reactive airway component although does not have known diagnosis of COPD. Will wean oxygen as tolerated. Will check procalcitonin. Will follow CBC. The patient's troponin is minimally elevated and is likely secondary to demand ischemia was acute hypoxic respiratory failure. Will trend troponins and monitor on telemetry in IMU. Acute occlusive myocardial event is unlikely. Quality VTE Prophylaxis VTE prophylaxis: mechanical ordered (SCDs) Hospitalist MIPS Advance Care Plan I have confirmed that the patient's Advanced Care Plan is present, code status is documented, or surrogate decision maker is listed in patient medical record.: Yes Medication Reconciliation I have utilized all available resources to obtain, update and review the patients current medications (includes all prescriptions, OTC, herbals, cannabis, and nutritional supplements).: Yes
--- NOTE | 2024-11-15 22:32 | ADMGEN ---
This patient, Almas Elias, was admitted to IMU Room 203-01. Patient/family oriented to hospital policies and general routines including ID bracelet, bed and alarms, visiting hours, pain management, procedures, bathroom and other care routines, personal items, smoking policy, room service/diet, and visiting hours. Information on how to activate the Rapid Response Team has been discussed. Patient/Family are encouraged to report perceived risks to care and to ask questions if they do not understand what they are told or what they should do.
[2024-11-15 23:43] LABS: Procalcitonin 0.4 ng/mL
[2024-11-16] VITALS (19 sets, daily range): BP systolic 100–125; BP diastolic 50–69; PULSE 64–89; RESP 18–20; TEMP 36.4–37.2; O2SAT 91–96; BMI 27.0
[2024-11-16 00:04] LABS: Troponin I 0.024 ng/mL (0.000-0.034)
[2024-11-16] MEDS: IPRATROPIUM 0.5 MG/ALBUTEROL SULFATE 2.5 MG AMPUL.NEB 3 ML INHALATION ×3 (02:02→13:20)
[2024-11-16 02:57] LABS: Basophils Percent Auto 0.1 % (0.2-1.2); Hematocrit 29.9 % (42.0-52.0); Hemoglobin 8.5 g/dL (14.0-18.0); Immature Granulocyte Absolute 0.45 K/mm3 (0.00-0.031); Immature Granulocyte Percent A 5.1 % (0-0.5); Lymphocytes Absolute Auto 0.23 K/mm3 (0.9-3.2); Lymphocytes Percent Auto 2.6 % (18.3-44.2); Mean Corpuscular HGB Conc 28.4 g/dl (32-36); Mean Corpuscular Hemoglobin 23.2 pg (26-34); Mean Corpuscular Volume 81.5 fl (80-100); Mean Platelet Volume 9.1 fl (7.4-10.4); Monocytes Absolute Auto 0.1 K/mm3 (0.1-0.6); Neutrophils Absolute Auto 8.1 K/mm3 (1.3-6.7); Neutrophils Percent Auto 91.2 % (45.5-73.1); Nucleated Red Blood Cells Perc 0.2 % (0.0-0.2); Platelet Count Result 268 k/mm3 (150-375); Red Blood Count 3.67 M/mm3 (4.6-6.20); White Blood Count 8.9 K/mm3 (4.5-10.0)
[2024-11-16 03:07] LABS: Anion Gap 8 mmol/L (4-12); Blood Urea Nitrogen 10 mg/dL (9-20); Calcium 7.2 mg/dL (8.4-10.2); Carbon Dioxide 27 mmol/L (22-30); Chloride 102 mmol/L (98-107); Estimated CRCL calculation 95 ml/min; Estimated Glomerular Filt Rate > 60; Glucose 277 mg/dL (65-110); Lactate Dehydrogenase 400 U/L (120-246); Potassium 3.8 mmol/L (3.4-5.0); Sodium 137 mmol/L (137-145); Triglycerides 82 mg/dL (<150)
[2024-11-16 03:17] LABS: Troponin I 0.016 ng/mL (0.000-0.034)
[2024-11-16 03:20] LABS: Anisocytosis 1+; Band Neutrophils Percent 0 % (0-6); Platelet Estimate Adequate (Adequate)
[2024-11-16 03:21] LABS: Burr Cells 1+; Ovalocytes 1+; Schistocytes None Seen
[2024-11-16] MEDS: PIPERACILLIN/TAZ 4.5G/NS 100ML 4.5 GM/100 ML BAG IVPB ×3 (06:26→17:37)
[2024-11-16] MEDS: VANCOMYCIN 1,500 MG/NS 500 ML 1,500 MG/500 ML BAG 250 MG IVPB ×2 (07:05→21:01)
[2024-11-16 08:02] LABS: Glucose Point of Care 215 mg/dl (65-105)
[2024-11-16] MEDS: dexAMETHasone 4 MG TABLET PO (08:50)
[2024-11-16] MEDS: levETIRAcetam 500 MG TABLET PO ×2 (08:50→21:01)
--- NOTE | 2024-11-16 09:19 | P.PNIM_ITS ---
Progress Note: A&P Assessment and Plan (1) Pleural effusion, left: Code(s): J90 - Pleural effusion, not elsewhere classified Status: Acute Assessment and Plan: * CXR: Redemonstration of a large left-sided pleural effusion with adjacent consolidation. Right hilar infiltrate is also suspected. * Chest CTA: No PE, dissection, Findings a bilaterally consistent with patient's known malignancy. Interval development of a large left-sided pleural effusion, likely contributing to patient's hypoxia * Pulmonology consulted , appreciate recommendations * If empyema or complex effusion, will need transfer * Monitor pleural fluid (if positive gram stain, pH <7.2, or positive culture) * Oncology consult pending * Broad spectrum antibiotics: Zosyn, Vanc, Levaquin * DuoNeb q6hrs, Decadron 4mg PO daily * Thoracentesis today * Repeat CXR tomorrow to assess fluid reaccumulation * Repeat ABG tomorrow (2) Acute hypoxic respiratory failure: Code(s): J96.01 - Acute respiratory failure with hypoxia Status: Acute Assessment and Plan: - Symptoms: Hypoxia - SpO2: 93 % on 4L NC - Oxygen supplementation: 4L NC - Suspected cause: Pleural effusion, left lung - ABG: pH 7.486, pCO2 30.6, pO2 48.6, O2 saturation 87.8, oxyhemoglobin 84.2, total hemoglobin 7.9 - EKG: NSR - Chest XR:Redemonstration of a large left-sided pleural effusion with adjacent consolidation - To undergo therapeutic + diagnositc Left sided thoracentesis - Wean O2 as appropriate (3) Sepsis: Qualifiers: Acute respiratory failure type: with hypoxia Sepsis acute organ dysfunction status: with acute organ dysfunction Sepsis type: sepsis due to unspecified organism Severe sepsis acute organ dysfunction type: acute respiratory failure Severe sepsis shock status: without septic shock Qualified Code(s): A41.9 - Sepsis, unspecified organism; R65.20 - Severe sepsis without septic shock; J96.01 - Acute respiratory failure with hypoxia Code(s): A41.9 - Sepsis, unspecified organism Status: Acute Assessment and Plan: Meets SIRS criteria: Hypoxia, tachycardia - lactic acid: 1.5 - suspected source: Pneumonia, malignancy - blood cultures drawn on 11/15 - CXR: Redemonstration of a large left-sided pleural effusion with adjacent consolidation. Right hilar infiltrate is also suspected. (4) Pneumonia: Qualifiers: Pneumonia type: due to unspecified organism Laterality: left Lung location: unspecified part of lung Qualified Code(s): J18.9 - Pneumonia, unspecified organism Code(s): J18.9 - Pneumonia, unspecified organism Status: Acute Assessment and Plan: CXR: Redemonstration of a large left-sided pleural effusion with adjacent consolidation. Right hilar infiltrate is also suspected. - Risk Factors: Recent hospitalization, possible aspiration pneumonia, pneumonia due to immunocompromised state - started on tx: Zosyn, Vancomycin, Levofloxacin - Viral PCR: pending - Consider ordering legionella, mycoplasma and pneumococcal - 4L NC for O2 supplementation - supportive treatment - trend labs Monitor vital signs, I&Os, neuro status and patient is a fall risk Follow WBC, serum electrolytes, temperature curves and cultures Send sputum cultures Oxygen via NC; wean as tolerated. Keep SpO2 greater than 88% Gentle IV fluid resuscitation Thoracentesis with pleural fluid analysis (5) Elevated troponin: Code(s): R79.89 - Other specified abnormal findings of blood chemistry Status: Acute Assessment and Plan: * Initial trop 0.039, repeats down trending * likely due to demand ischemia * EKG: NSR * Acute occlusive myocardial event is unlikely (6) Metastatic adenocarcinoma to brain: Code(s): C79.31 - Secondary malignant neoplasm of brain Status: Acute Assessment and Plan: * With prostate cancer being primary with metastases also to the liver and lung. Time Spent With Patient Time: Subjective Date/time seen: 11/16/24 09:19 Interval history: 78-year-old male with a past medical history of 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 ER reported that the patient was evaluated by his home health nurse yesterday and his oxygen saturations were in the mid 70s. 11/16/2024 Patient sitting comfortably in bed at time of exam, does not appear to be in respiratory distress. At time of exam, he was on 3.5L NC o2 supplementation. He currently has no complaints at this time, denies any chest pain, n/v, abdominal pain, or feelings of SOB. Pt aware of large pleural effusion needing thoracentesis at this time. Pulmonology consulted, recommend assessing pleural effusion with possible transfer depending on fluid analysis. Review of Systems Review of Systems: 12 systems were reviewed with pertinent positives and negatives per HPI. Except as documented in the HPI, all other systems were reviewed and are negative. He reports that he does snore but does not have known history of sleep apnea. Exam Narrative: Gen - ill appearing male in no acute respiratory distress who is nontoxic- appearing lying semi recumbent in bed HEENT - normocephalic. Atraumatic. Pupils equal round and reactive. Extraocular motions intact. Nares patent. Oropharynx was clear. Moist mucous membranes. Tongue was midline. Palate myrna symmetrically. No facial asymmetry. Neck - neck was supple. No dominant adenopathy, thyromegaly or masses. Chest - Decreased breath sounds in left lung, wheezes in right lung with some crackles at base of right lung as well CV - heart was regular rate and rhythm. S1-S2. No murmurs gallops or rubs. Abd - abdomen was soft. Nontender. Nondistended. Positive bowel sounds. Ext - no clubbing, cyanosis or edema. 2+ DP pulses bilaterally. Neuro - patient is alert and oriented x4. Strength is 5/5 in both upper and lower extremities. Speech is clear. Psych - normal mood and affect. Patient is pleasant and cooperative. Skin - warm and dry. No rashes noted. Objective Data Vital Signs Vital Signs: Vital Signs - 24 hr 11/15/24 17:12 11/15/24 17:17 11/15/24 17:30 Temperature 100.5 F H Pulse Rate 106 H 104 H Respiratory Rate 34 H 26 H Blood Pressure 125/71 Pulse Oximetry 74 L 93 97 Oxygen Delivery Nasal Cannula Oxygen Flow Rate 6 Fraction of Inspired Oxygen 11/15/24 17:30 11/15/24 17:53 11/15/24 17:55 Temperature Pulse Rate 98 106 H Respiratory Rate 24 H 24 H Blood Pressure Pulse Oximetry 97 Oxygen Delivery Nasal Cannula Oxygen Flow Rate 6 Fraction of Inspired Oxygen 11/15/24 18:15 11/15/24 18:46 11/15/24 19:01 Temperature Pulse Rate 103 H 100 101 H Respiratory Rate 24 H 20 20 Blood Pressure 122/63 117/65 114/63 Pulse Oximetry 100 100 94 Oxygen Delivery Oxygen Flow Rate Fraction of Inspired Oxygen 11/15/24 20:46 11/15/24 21:36 11/15/24 23:35 Temperature 98.2 F Pulse Rate 89 81 Respiratory Rate 22 H 22 H Blood Pressure 118/70 118/79 Pulse Oximetry 94 94 94 Oxygen Delivery Nasal Cannula Oxygen Flow Rate 6 Fraction of Inspired Oxygen 11/16/24 00:00 11/16/24 00:00 11/16/24 02:00 Temperature 97.6 F Pulse Rate 86 86 87 Respiratory Rate 20 Blood Pressure 125/69 Pulse Oximetry 96 Oxygen Delivery Oxygen Flow Rate Fraction of Inspired Oxygen 11/16/24 02:07 11/16/24 02:08 11/16/24 04:00 Temperature Pulse Rate 85 85 Respiratory Rate 20 20 Blood Pressure Pulse Oximetry 96 96 Oxygen Delivery Nasal Cannula Nasal Cannula Oxygen Flow Rate 4 6 Fraction of Inspired Oxygen 36 11/16/24 04:00 11/16/24 04:00 11/16/24 06:00 Temperature 98.9 F Pulse Rate 64 80 82 Respiratory Rate 20 Blood Pressure 113/62 Pulse Oximetry 91 Oxygen Delivery Oxygen Flow Rate Fraction of Inspired Oxygen 11/16/24 08:00 11/16/24 08:10 11/16/24 08:11 Temperature Pulse Rate 81 Respiratory Rate 18 Blood Pressure Pulse Oximetry 92 91 Oxygen Delivery Nasal Cannula Nasal Cannula Oxygen Flow Rate 6 4 Fraction of Inspired Oxygen 11/16/24 08:18 11/16/24 08:28 Temperature 98.8 F Pulse Rate 73 89 Respiratory Rate 18 20 Blood Pressure 111/63 Pulse Oximetry 92 Oxygen Delivery Oxygen Flow Rate Fraction of Inspired Oxygen Intake/Output Intake/Output: Intake & Output 11/13/24 11/14/24 11/15/24 11/16/24 23:59 23:59 23:59 23:59 Intake Total 1550 330 Output Total 200 Balance 1550 130 Meds/Results Medications: Active Medications Generic Name Dose Route Start Last Admin Trade Name Freq PRN Reason Stop Dose Admin Acetaminophen 650 mg 11/15/24 22:40 Acetaminophen 325 Mg Tablet PO Q4H PRN Mild Pain (1-3) or Fever Albuterol/Ipratropium 3 ml 11/16/24 02:00 11/16/24 08:10 Ipratropium 0.5 Mg/Albuterol Sulfate 2.5 Mg Ampul.Neb 3 Ml INHALATION 3 ml Q6HRT MIGUELITO Administration Calcium Carbonate 200 mg 11/15/24 22:40 Calcium Carbonate (Tums) 500 Mg (200 Mg Elemental) PO Q6H PRN Indigestion Cyanocobalamin 250 mcg 11/16/24 09:00 Cyanocobalamin 250 Mcg Tablet PO DAILY MIGUELITO Dexamethasone 4 mg 11/16/24 09:00 11/16/24 08:50 Dexamethasone 4 Mg Tablet PO 4 mg DAILY MIGUELITO Administration Dextrose 12.5 gm 11/16/24 06:57 Dextrose 50% 25 Gm/50 Ml Syringe IV PUSH PRN PRN Hypoglycemia Protocol Diphenhydramine HCl 25 mg 11/16/24 06:56 Diphenhydramine Hcl Cap 25 Mg Capsule PO HS PRN Insomnia Ferrous Sulfate 325 mg 11/16/24 08:00 Ferrous Sulfate [address] PO DAILY@0800 MIGUELITO Glucagon 1 mg 11/16/24 06:57 Glucagon For Inj 1 Mg Vial IM PRN PRN Hypoglycemia Protocol Glucose 15 gm 11/16/24 06:57 Glucose Oral Gel 15 Gm Of Glucse In 37.5 Gm Tube PO PRN PRN Hypoglycemia Protocol Vancomycin HCl 1,500 mg in 500 mls @ 250 mls/hr 11/16/24 08:00 11/16/24 07:05 Vancomycin 1,500 Mg/Ns 500 Ml IVPB 250 mls/hr Q12H MIGUELITO Administration Piperacillin Sod/Tazobactam Sod 4.5 gm in 100 mls @ 200 mls/hr 11/16/24 06:00 11/16/24 06:26 Zosyn 4.5 Gm/Ns 100 Ml IVPB 200 mls/hr Q6H MIGUELITO Administration Dextrose 1,000 mls @ 100 mls/hr 11/16/24 06:57 Dextrose 5% 1,000 Ml IVPB PRN PRN Hypoglycemia Protocol Insulin Aspart 3 - 6 units 11/16/24 08:00 11/16/24 08:49 Insulin Aspart (*Bkc) 100 Units/Ml SUB-Q Not Given TIDWM [facility] Protocol Insulin Aspart 1 - 3 units 11/16/24 21:00 Insulin Aspart (*Bkc) 100 Units/Ml SUB-Q HS MIGUELITO Protocol Levetiracetam 500 mg 11/16/24 09:00 11/16/24 08:50 Levetiracetam 500 Mg Tablet PO 500 mg Q12HR MIGUELITO Administration Metformin HCl 500 mg 11/16/24 18:00 Metformin Hcl Xr 500 Mg Tab.Sr.24h PO QPM [facility] Mirtazapine 7.5 mg 11/16/24 21:00 Mirtazapine 7.5 Mg Tablet PO QHS [facility] Ondansetron HCl 4 mg 11/15/24 22:40 Ondansetron Inj 4 Mg/2 Ml Vial IV PUSH Q6H PRN Nausea And Vomiting Pantoprazole Sodium 40 mg 11/16/24 09:00 Pantoprazole 40 Mg Tablet PO 12/16/24 08:59 DAILY [facility] Sodium Chloride 10 ml 11/16/24 14:00 Central Line Flush IV PUSH Q8HR [facility] Radiology Results: ITS Impressions Chest X-Ray 11/15/24 18:55 IMPRESSION: Redemonstration of a large left-sided pleural effusion with adjacent consolidation. Right hilar infiltrate is also suspected. Chest CTA 11/15/24 19:34 IMPRESSION: No pulmonary embolus. No thoracic aortic dissection. 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 Interval development of a large left-sided pleural effusion, likely contributing to patient's hypoxia as this is an interval change from 08/02/2024 examination. Labs Labs: Laboratory Results - last 24 hr 11/15/24 11/15/24 11/15/24 17:43 17:43 17:45 WBC 9.3 RBC 3.48 L Hgb 8.1 L Hct 27.7 L MCV 79.6 L MCH 23.3 L MCHC 29.2 L RDW 22.1 H Plt Count 299 MPV 8.7 Immature Gran % (Auto) 4.1 H Neut % (Auto) 81.6 H Lymph % (Auto) 7.9 L [place] % (Auto) 5.6 Eos % (Auto) 0.6 Baso % (Auto) 0.2 Lymph # (Auto) 0.73 L [place] # (Auto) 0.5 Eos # (Auto) 0.1 Baso # (Auto) 0.0 Abs Immat Gran (auto) 0.38 H Absolute Neuts (auto) 7.6 H Absolute Nucleated RBC 0.030 H Band Neutrophils % 0 Nucleated RBC % 0.3 H Platelet Estimate Adequate Anisocytosis 1+ Ovalocytes 1+ [place] Cells Schistocytes None seen ESR > 140 H PT 15.7 H INR 1.2 APTT 32.8 Sodium 134 L Potassium 3.5 Chloride 99 Carbon Dioxide 29 Anion Gap 6 BUN 12 Creatinine 0.52 L Estim Creat Clear Calc 95 Estimated GFR > 60 Glucose 117 H POC Capillary Glucose Lactic Acid 1.5 Calcium 7.5 L Magnesium 2.1 Total Bilirubin 0.8 AST 28 ALT 22 Alkaline Phosphatase 109 Lactate Dehydrogenase Troponin I 0.039 H* C-Reactive Protein 26.9 H Cancelled NT-Pro-B Natriuret Pep 1920 H Total Protein 6.0 L Albumin 2.9 L Triglycerides Procalcitonin 0.4 Urine Color Urine Appearance Urine pH Ur Specific [place] Urine Protein Urine Glucose (UA) Urine Ketones Ur Blood (Man) Urine Nitrate Urine Bilirubin Urine Urobilinogen Add Ur Microanalysis Leukocyte Esterase Rfl Urine RBC Urine WBC Ur Squamous Epith Cells Urine Bacteria Urine Casts Nasal MRSA (PCR) 11/15/24 11/15/24 11/15/24 18:00 20:45 23:34 WBC RBC Hgb Hct MCV MCH MCHC RDW Plt Count MPV Immature Gran % (Auto) Neut % (Auto) Lymph % (Auto) [place] % (Auto) Eos % (Auto) Baso % (Auto) Lymph # (Auto) [place] # (Auto) Eos # (Auto) Baso # (Auto) Abs Immat Gran (auto) Absolute Neuts (auto) Absolute Nucleated RBC Band Neutrophils % Nucleated RBC % Platelet Estimate Anisocytosis Ovalocytes Epifanio Cells Schistocytes ESR PT INR APTT Sodium Potassium Chloride Carbon Dioxide Anion Gap BUN Creatinine Estim Creat Clear Calc Estimated GFR Glucose POC Capillary Glucose Lactic Acid Calcium Magnesium Total Bilirubin AST ALT Alkaline Phosphatase Lactate Dehydrogenase Troponin I 0.024 D C-Reactive Protein NT-Pro-B Natriuret Pep Total Protein Albumin Triglycerides Procalcitonin Urine Color Yellow Urine Appearance Clear Urine pH 6.5 Ur Specific [place] > 1.045 H Urine Protein Trace Urine Glucose (UA) Negative Urine Ketones Trace H Ur Blood (Man) Negative Urine Nitrate Negative Urine Bilirubin Negative Urine Urobilinogen 1.0 Add Ur Microanalysis Reviewed Leukocyte Esterase Rfl Negative Urine RBC 0-2 Urine WBC 0-5 Ur Squamous Epith Cells None seen Urine Bacteria None seen Urine Casts 0-2 Nasal MRSA (PCR) Not detected 11/16/24 11/16/24 02:37 07:50 WBC 8.9 RBC 3.67 L Hgb 8.5 L Hct 29.9 L MCV 81.5 MCH 23.2 L MCHC 28.4 L RDW 22.0 H Plt Count 268 MPV 9.1 Immature Gran % (Auto) 5.1 H Neut % (Auto) 91.2 H Lymph % (Auto) 2.6 L [place] % (Auto) 1.0 L Eos % (Auto) 0.0 Baso % (Auto) 0.1 L Lymph # (Auto) 0.23 L [place] # (Auto) 0.1 Eos # (Auto) 0.0 Baso # (Auto) 0.0 Abs Immat Gran (auto) 0.45 H Absolute Neuts (auto) 8.1 H Absolute Nucleated RBC 0.020 H Band Neutrophils % 0 Nucleated RBC % 0.2 Platelet Estimate Adequate Anisocytosis 1+ Ovalocytes 1+ [place] Cells 1+ Schistocytes None seen ESR PT INR APTT Sodium 137 Potassium 3.8 Chloride 102 Carbon Dioxide 27 Anion Gap 8 BUN 10 Creatinine 0.50 L Estim Creat Clear Calc 95 Estimated GFR > 60 Glucose 277 H POC Capillary Glucose 215 H Lactic Acid Calcium 7.2 L Magnesium Total Bilirubin AST ALT Alkaline Phosphatase Lactate Dehydrogenase 400 H Troponin I 0.016 D C-Reactive Protein NT-Pro-B Natriuret Pep Total Protein Albumin Triglycerides 82 Procalcitonin Urine Color Urine Appearance Urine pH Ur Specific [place] Urine Protein Urine Glucose (UA) Urine Ketones Ur Blood (Man) Urine Nitrate Urine Bilirubin Urine Urobilinogen Add Ur Microanalysis Leukocyte Esterase Rfl Urine RBC Urine WBC Ur Squamous Epith Cells Urine Bacteria Urine Casts Nasal MRSA (PCR) Quality VTE Prophylaxis VTE prophylaxis: mechanical ordered (SCDs)
[2024-11-16 11:52] LABS: Glucose Point of Care 157 mg/dl (65-105)
--- NOTE | 2024-11-16 12:52 | P.CONPL_ITS ---
Assessment and Plan Assessment and plan (1) Pleural effusion, left: Code(s): J90 - Pleural effusion, not elsewhere classified Status: Acute Assessment and Plan: Regarding his pleural effusion: patient has CT scan of the abdomen on 10/27/2020 with no pleural effusions. Next chest imaging inour system is a chest x-ray on 07/30/2024 with bilateral masses and a left pleural effusion. CT scan on 08/02/2024 showed multiple pulmonary ground-glass infiltrates and nodules and a small left free-flowing pleural effusion with maximal layering about [address] PET on 08/15/2024 showed an enlarged partially loculated left pleural effusion with maximal layering at about 25 mm. chest x-ray 09/17/2024 with enlarged airspace opacities and pleural effusion compared to 08/15/2024. chest x-ray 11/15/2024 with enlarged left pleural effusion occupying approximately 50% of the left hemithorax. CT scan of the chest on 11/15/2024 with an enlarged loculated left pleural effusion with maximal layering about 45 mm. Patient with progressively worse left pleural effusion since 07/30/2024. Plan: Agree with left-sided thoracentesis as the patient now is symptomatic with hypoxemia. patient had a fever and will stand and studies to assess for empyema, complex pleural effusions, exudate and transudate. If the patient has an empyema or complex effusion as evidenced by positive Gram stain, pH < 7.20, or positive culture he will need to be transferred to a higher level of care facility for thoracic surgery consultation. I have explained this to the patient and he is in agreement to be transferred if needed. her a repeat chest x-ray on 11/17/2024 and if the patient has a rapidly reaccumulate id effusion will need to be transferred to higher level of care facility for thoracic surgery consultation. Oncology consult has been placed. At this time agree with broad-spectrum antibiotics including vancomycin, Zosyn and I will add Levaquin for additional Gram-negative coverage and atypical coverage. Patient has had a clinical response to the DuoNeb Q.6 hours and would continue at this time. Patient is on Decadron 4 mg p.o. q.day . Pulmonary inpatient services will resume on 11/19/2024, call with questions Discussed with Dr. Silva (2) Acute hypoxic respiratory failure: Code(s): J96.01 - Acute respiratory failure with hypoxia Status: Acute Assessment and Plan: Patient previously not requiring oxygen at home. No previous respiratory limitations in his activities of daily living. Patient presented with hypoxemic respiratory failure 74% sats on room air. Increased to 94% on 6 L. Currently patient requiring 4 L nasal cannula. Etiology for hypoxemic respiratory failure includes: Left pleural effusion, bilateral lung masses, pneumonia and/or empyema. Plan: I will check an ABG to assess for hypercarbic respiratory failure. Goal saturation 90-94%. I will place the patient on continuous oxygen monitor. Adjust oxygen accordingly. History of Present Illness History of Present Illness Consult date: 11/16/24 Chief complaint: pleural effusion, malignancy,elevated troponin,SOB Narrative: 11/16/2024: This is a new pulmonary consult for pleural oral effusion and hypoxia. 78-year-old with a history of hyponatremia, anemia, diabetes, GERD, metastatic prostate cancer. Regarding patient's metastatic prostate cancer he is followed by Dr. Brown, oncology. diagnosis status post TURP done on 10/29 with adenocarcinoma. Completed radiation July 2021 and then received Eligard. Metastatic prostate to the liver status post biopsy August 10, 2024. PET scan 08/15/2024 with multiple bilateral FDG avid masses in the lung, few FDG avid hepatic masses, and enlarged mediastinal lymph nodes consistent with metastatic disease. Started on weeks Gwen Taxotere on 09/25/2024, Lupron started 09/19/2024, Xgeva started 09/19/2024, Zytiga started August 2024. patient presented with weeks left side and had an MRI on 10/23/2024 which showed multiple brain lesions and he was transferred to [facility] and underwent a craniotomy with resection on 10/26/2024 and was discharged on 10/29/2024. He was on no home oxygen when he was discharged. The patient tells me they are still waiting on genetic markers. He is scheduled to get radiation therapy to 2 remaining brain lesions and was mapped on 11/12/[address] [facility]. Regarding his pleural effusion: patient has CT scan of the abdomen on 10/27/2020 with no pleural effusions. Next chest imaging was a chest x-ray on 07/30/2024 with bilateral masses and a left pleural effusion. CT scan on 08/02/2024 showed multiple pulmonary ground-glass infiltrates and nodules and a small left free-flowing pleural effusion with maximal layering about [address] PET on 08/15/2024 showed an enlarged partially loculated left pleural effusion with maximal layering at about 25 mm. chest x-ray 09/17/2024 with enlarged airspace opacities and pleural effusion compared to 08/15/2024. chest x-ray 11/15/2024 with enlarged left pleural effusion occupying approximately 50% of the left hemithorax. CT scan of the chest on 11/15/2024 with an enlarged loculated left pleural effusion with maximal layering about 45 mm. patient smoked tobacco from age [age] at 1 pack per day for a total of 33 pack years. Patient was exposed to secondhand smoke. Patient was exposed to secondhand smoke from his until 1984. 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 Patient has had no respiratory limitations in his activities of daily living. He is on no home oxygen 11/16/2023: patient has 5-6 days of dry cough with no hemoptysis, fever x1, weakness, shortness of breath and gasping for air and presented to the emergency room on 11/15/2024. Blood pressure 125/71, heart rate 106, room air saturation 74% and increased to 94% with 6 L nasal cannula. His respiratory rate was 34. White blood cell count 9.3, creatinine 0.52, BNP 1920, procalcitonin 0.4, CRP 26.9, troponin was positive, MRSA nasal swab negative. CT angiogram of the chest showed no pulmonary embolism, new large left effusion that was not free flowing with some evidence of loculation and multiple bilateral lung masses. Patient was treated with dexamethasone 4 mg, bronchodilators, vancomycin, Zosyn and admitted to the floor. 11/17/2023: Overall patient tells me he is breathing better. Feels he is breathing 50% back to his baseline. Is wheezing and cough or the same. Currently he is on 4 L nasal cannula saturation 93%. White blood cell count count 8.9, creatinine 0 point 5 0. DATA: EXAMINATION: CTA chest PE protocol DATE: 11/15/2024 19:35 CDT INDICATION: Hypoxia. Pulmonary embolus suspected clinically TECHNIQUE: Computed tomographic angiography (CTA) of the chest was performed with 100 mL Omnipaque-350 intravenous contrast. The dose-length product was 438.87 mGy-cm. Maximum intensity projection 3D-reconstructions of the aorta and other arteries were constructed by the technologist on a separate workstation. COMPARISON: Reference is made to a CT examination of the chest dated 08/02/2024 FINDINGS/OBSERVATIONS: PULMONARY ARTERIES: No filling defect is identified within the main or proximal pulmonary artery. The main pulmonary artery is not enlarged. THORACIC AORTA: No aneurysmal dilatation or dissection is present. The great vessels are intact LUNGS: Redemonstration of a spiculated mass within the right upper lobe. Redemonstration of a large mass at the left hilum, unchanged from prior. Interval development of a large left-sided pleural effusion, likely contributing to patient's hypoxia. MEDIASTINUM: No morphologically suspicious or pathologically enlarged lymph nodes are identified within the mediastinum or bilateral axilla. BONES OF THE CHEST: No acute fracture. There are bridging endplate osteophytes at multiple levels in the spine, consistent with diffuse idiopathic skeletal hyperostosis (DISH). No lytic or blastic lesions. HEART: The heart is of normal size, without pericardial effusion. IMPRESSION: No pulmonary embolus. No thoracic aortic dissection. 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 Interval development of a large left-sided pleural effusion, likely contributing to patient's hypoxia as this is an interval change from 08/02/2024 examination. Review of Systems 2 Constitutional: Constitutional: Reports no additional constitutional complaints Eyes: Eyes: Reports no additional eye complaints ENT: Reports system reviewed and no additional complaints, except as documented Cardiovascular: Cardiovascular: Reports no additional cardiovascular complaints Respiratory: Respiratory: Reports no additional respiratory complaints Gastrointestinal: Gastrointestinal: Reports no additional gastrointestinal complaints Musculoskeletal: Musculoskeletal: Reports no additional musculoskeletal complaints Neurologic: Reports system reviewed and no additional complaints, except as documented Psychiatric: Psychiatric: Reports no additional psychiatric complaints Endocrine: Endocrine: Reports no additional endocrine complaints Hematologic/Lymphatic: Hematologic/Lymphatic: Reports no additional hematologic/lymphatic complaints Allergic/Immunologic: Allergic/Immunologic: Reports no additional allergic/immunologic complaints [facility] Past Medical History Medical History (Updated 11/15/24 @ 22:33 by Loyda Thompson DO) Metastatic adenocarcinoma to brain Insomnia Hyponatremia Secondary malignant neoplasm of bone Anemia Prediabetes Family history of melanoma History of colonic polyps Basal cell carcinoma Prostate cancer (~2020) Other and unspecified hyperlipidemia Osteoarthritis of knee, unspecified Surgical History Surgical History (Updated 11/15/24 @ 22:25 by Loyda Thompson DO) Status post cataract extraction of both eyes with insertion of intraocular lens (2023) Port-A-Cath in place (09/17/24) History of craniotomy (10/20/24) left frontal lobe lesion resection History of tonsillectomy Family History Family History Father Acute myocardial infarction Heart disease Mother Breast cancer Sibling Melanoma Social History Social History (Updated 11/16/24 @ 08:36 by Loyda Thompson DO) Social History: 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 He lives with his of 58 years. They raised 3 sons. Patient has smoked 1 pack of cigarettes per day for 35-40 years but quit smoking in 1999. He used to drink 2 alcoholic beverages a night but has cut back since his recent illness. He denies history of illicit substance use. He has been ambulating with a walker since he was discharged from the hospital in October at following his craniotomy. Code status: Full code (the patient initially told me that he did not want to be intubated but when discussing cardiac resuscitation he stated that he would defer all decisions to his son Chente. He stated that Chente would not do something that was not necessary any wants him to make the his decisions for him. Smoking packs per day: 1 Smoking cigarettes per day: 20.0 Years smoked: 40 Smoking pack-years: 40.00 Smoking status: Former smoker Tobacco type: cigarettes Second hand tobacco smoke exposure: No Smoking end date: 07/11/99 Alcohol intake: current Drinks per week: 21 Alcohol use details: Liquor Substance use: never Substance use type: does not use Do You Feel Safe in your Home?: Yes Lack of Transportation: No Lack of Food: Never True Current Housing: I Have Housing Concerned About Future Housing: No Difficulty Paying Gas/Electric Bills: No Difficulty Paying for Meds: No Currently Unemployed: No Education: High School Diploma/GED Difficulty w/ Childcare or Family Care: No Living arrangements: with family Additional living arrangements comments: Occupation/Education: retired Gender identity (if verbalized by the patient): Male Sexual Orientation (if Verbalized by the Patient): Straight or Heterosexual Spiritual care concerns: No Agree to blood products: Yes Meds Home Medications and Allergies Home Medications Medication Instructions Recorded Confirmed Type ergocalciferol (vitamin D2) 1,250 1,250 mcg PO WEEKLY #12 caps 08/02/24 11/15/24 Rx mcg (50,000 unit) capsule simvastatin 40 mg tablet 40 mg PO QHS #90 tabs 10/10/24 11/15/24 Rx cyanocobalamin (vitamin B-12) 250 250 mcg PO DAILY 11/05/24 11/15/24 History mcg tablet ferrous sulfate 325 mg (65 mg 325 mg PO DAILY 11/05/24 11/15/24 History iron) tablet levetiracetam 500 mg tablet 500 mg PO BID 11/05/24 11/16/24 History lidocaine-prilocaine 2.5 %-2.5 % 1 applic topical ONCE 11/05/24 11/15/24 History topical cream mirtazapine 7.5 mg tablet 7.5 mg PO QHS 11/05/24 11/16/24 History omeprazole magnesium 20 mg 20 mg PO DAILY 11/05/24 11/15/24 History tablet,delayed release ondansetron 8 mg disintegrating 8 mg PO ONCE 11/05/24 11/15/24 History tablet metformin 500 mg tablet,extended 500 mg PO QPM #100 tabs 11/07/24 11/15/24 Rx release 24 hr (Glucophage XR) dexamethasone 4 mg tablet 4 mg PO DAILY 11/15/24 11/15/24 History Allergies Allergy/AdvReac Type Severity Reaction Status Date / Time No Known Allergies Allergy Verified 11/05/24 08:23 Vital Signs Vital Signs - 24 hr 11/15/24 17:12 11/15/24 17:17 11/15/24 17:30 Temperature 38.1 C H Pulse Rate 106 H 104 H Respiratory Rate 34 H 26 H Blood Pressure 125/71 Pulse Oximetry 74 L 93 97 Oxygen Delivery Nasal Cannula Oxygen Flow Rate 6 Fraction of Inspired Oxygen 11/15/24 17:30 11/15/24 17:53 11/15/24 17:55 Temperature Pulse Rate 98 106 H Respiratory Rate 24 H 24 H Blood Pressure Pulse Oximetry 97 Oxygen Delivery Nasal Cannula Oxygen Flow Rate 6 Fraction of Inspired Oxygen 11/15/24 18:15 11/15/24 18:46 11/15/24 19:01 Temperature Pulse Rate 103 H 100 101 H Respiratory Rate 24 H 20 20 Blood Pressure 122/63 117/65 114/63 Pulse Oximetry 100 100 94 Oxygen Delivery Oxygen Flow Rate Fraction of Inspired Oxygen 11/15/24 20:46 11/15/24 21:36 11/15/24 23:35 Temperature 36.8 C Pulse Rate 89 81 Respiratory Rate 22 H 22 H Blood Pressure 118/70 118/79 Pulse Oximetry 94 94 94 Oxygen Delivery Nasal Cannula Oxygen Flow Rate 6 Fraction of Inspired Oxygen 11/16/24 00:00 11/16/24 00:00 11/16/24 02:00 Temperature 36.4 C Pulse Rate 86 86 87 Respiratory Rate 20 Blood Pressure 125/69 Pulse Oximetry 96 Oxygen Delivery Oxygen Flow Rate Fraction of Inspired Oxygen 11/16/24 02:07 11/16/24 02:08 11/16/24 04:00 Temperature Pulse Rate 85 85 Respiratory Rate 20 20 Blood Pressure Pulse Oximetry 96 96 Oxygen Delivery Nasal Cannula Nasal Cannula Oxygen Flow Rate 4 6 Fraction of Inspired Oxygen 36 11/16/24 04:00 11/16/24 04:00 11/16/24 06:00 Temperature 37.2 C Pulse Rate 64 80 82 Respiratory Rate 20 Blood Pressure 113/62 Pulse Oximetry 91 Oxygen Delivery Oxygen Flow Rate Fraction of Inspired Oxygen 11/16/24 08:00 11/16/24 08:10 11/16/24 08:11 Temperature Pulse Rate 81 Respiratory Rate 18 Blood Pressure Pulse Oximetry 92 91 Oxygen Delivery Nasal Cannula Nasal Cannula Oxygen Flow Rate 6 4 Fraction of Inspired Oxygen 11/16/24 08:18 11/16/24 08:28 11/16/24 11:46 Temperature 37.1 C 36.4 C Pulse Rate 73 89 76 Respiratory Rate 18 20 18 Blood Pressure 111/63 100/60 Pulse Oximetry 92 93 Oxygen Delivery Oxygen Flow Rate Fraction of Inspired Oxygen Exam 2 Const: General: cooperative, healthy appearing and comfortable O rientation/consciousness: oriented to person, oriented to place and oriented to time HENMT: Head: normal to inspection Ears: hearing grossly normal bilaterally Eyes: General: appearance normal, both eyes and all related structures Neck: Neck: normal visual inspection Chest: Chest palpation & inspection: normal inspection of the chest Resp: Effort & Inspection: normal respiratory effort and able to speak in complete sentences Auscultation: crackles, no rales, no rhonchi, wheezes and diminished lung sounds Other: Decreased breath sounds left lung, wheezes right lung, crackles right base. Cardio: Jugular venous distension: no JVD GI: Inspection: normal to inspection GI Palp: No abdominal tenderness Skin: General skin exam: normal color Neuro: General: oriented to person, oriented to place and oriented to time Extrem: General: normal to inspection Psych: Appearance: grossly normal Results Laboratory Findings 11/16/24 02:37 11/16/24 02:37 ABG, PT/INR, D-dimer: PT/INR, D-dimer PT 15.7 Seconds (11.1-14.7) H 11/15/24 17:43 INR 1.2 11/15/24 17:43 Abnormal lab findings: Abnormal Labs 11/15/24 11/15/24 11/16/24 17:43 20:45 02:33 RBC 3.48 L Hgb 8.1 L Hct 27.7 L MCV 79.6 L MCH 23.3 L MCHC 29.2 L RDW 22.1 H Immature Gran % (Auto) 4.1 H Neut % (Auto) 81.6 H Lymph % (Auto) 7.9 L [place] % (Auto) Baso % (Auto) Lymph # (Auto) 0.73 L Abs Immat Gran (auto) 0.38 H Absolute Neuts (auto) 7.6 H Absolute Nucleated RBC 0.030 H Nucleated RBC % 0.3 H ESR > 140 H PT 15.7 H Sodium 134 L Creatinine 0.52 L Glucose 117 H POC Capillary Glucose Calcium 7.5 L Lactate Dehydrogenase Troponin I 0.039 H* C-Reactive Protein 26.9 H NT-Pro-B Natriuret Pep 1920 H Total Protein 6.0 L 6.0 L Albumin 2.9 L Ur Specific [place] > 1.045 H Urine Ketones Trace H 11/16/24 11/16/24 11/16/24 02:37 07:50 11:29 RBC 3.67 L Hgb 8.5 L Hct 29.9 L MCV MCH 23.2 L MCHC 28.4 L RDW 22.0 H Immature Gran % (Auto) 5.1 H Neut % (Auto) 91.2 H Lymph % (Auto) 2.6 L [place] % (Auto) 1.0 L Baso % (Auto) 0.1 L Lymph # (Auto) 0.23 L Abs Immat Gran (auto) 0.45 H Absolute Neuts (auto) 8.1 H Absolute Nucleated RBC 0.020 H Nucleated RBC % ESR PT Sodium Creatinine 0.50 L Glucose 277 H POC Capillary Glucose 215 H 157 H Calcium 7.2 L Lactate Dehydrogenase 400 H Troponin I C-Reactive Protein NT-Pro-B Natriuret Pep Total Protein Albumin Ur Specific [place] Urine Ketones Diagnostic Findings Additional studies: ITS Impressions Chest X-Ray 11/15/24 18:55 IMPRESSION: Redemonstration of a large left-sided pleural effusion with adjacent consolidation. Right hilar infiltrate is also suspected. Chest CTA 11/15/24 19:34
[2024-11-16] MEDS: levoFLOXacin 750 MG/D5W 150 ML 750 MG/150 ML BAG 100 MG IVPB (13:02)
[2024-11-16] MEDS: CENTRAL LINE FLUSH 10 ML IV PUSH (13:57)
[2024-11-16 14:22] LABS: Alveolar/Arterial O2 Gradient 114.9 mmHg; Base Excess ABG -0.5 mEq/l (+/-2.0); Fractional Inspired Oxygen 28 %; HCO3 ABG 22.6 mEq/l (22.0-26.0); Oxygen Content ABG 9.4 %vol (16.0-22.0); PCO2 ABG 30.6 mmHg (35.0-45.0); PO2 FiO2 Ratio Arterial Blood 1.74 %; Total Hemoglobin 7.9 g/dL (12.0-18.0); pH ABG 7.486 (7.350-7.450)
[2024-11-16 14:24] LABS: Oxygen Saturation ABG 87.8 % (95.0-100.0); PO2 ABG 48.6 mmHg (80.0-100.0)
[2024-11-16 14:25] LABS: Device NASAL CANNULA; Modified Allen's Test Pass; Oxyhemoglobin 84.2 % THb (90.0-100.0); Site Drawn LEFT RADIAL
[2024-11-16 16:00] LABS: pH Pleural Fluid > 7.500 (7.210-7.500)
[2024-11-16 16:27] LABS: Glucose Point of Care 173 mg/dl (65-105)
--- NOTE | 2024-11-16 16:32 | P.CONONC_ITS ---
Assessment and Plan Assessment and plan (1) Metastatic adenocarcinoma to brain: Code(s): C79.31 - Secondary malignant neoplasm of brain Status: Acute Assessment and Plan: Patient underwent liver biopsy in July of 2024 and that showed metastatic prostate cancer involving the liver. PET scan showed multiple liver and lung metastasis. He had a relapse with brain metastasis underwent craniotomy in October 25, 2024. He is going to start radiation therapy treatment as an outpatient. Tempus testing reviewed. Will order tempus tumor origin testing as well as an outpatient. Patient underwent thoracentesis. Cytology from the pleural fluid is also pending. Patient may be referred for PleurX catheter placement as an outpatient if pleural cytology comes back positive for malignant effusion. He will follow-up in the office. Regarding anemia I will order iron and vitamin B12 level today. Patient will most likely be discharged home tomorrow morning after the chest x-ray. He will follow-up in the office. HPI Data of Consult Date/Time: 11/16/24 16:32 Requesting Physician: Smith Silva PA-C Primary Care Provider: Chaka Colin MD Consult Narrative Narrative: Almas Elias is a 78 year old male with history of likely metastatic prostate cancer status post liver biopsy done in August 10, 2024. PET scan done in August 15, 2024 showed multiple bilateral FDG avid masses in the lung with few FDG avid hepatic masses and enlarged mediastinal lymphadenopathy. There was a small left-sided pleural effusion. PSA was normal. He started treatment with Eligard as well as prednisone and Taxotere. He was recently discharged from the [facility] when he was found to have brain metastasis involving the right frontal lobe mass status post craniotomy done in October 25, 2024. There was a questionable diagnosis of metastatic lung cancer. Tempus testing was ordered at that time and Zytiga and prednisone was discontinued. Patient has been seen by radiation oncologist and plan is to start radiation therapy to the brain metastasis. Keppra has also been discontinued. He now came into the hospital with increasing shortness of breath. CTA chest showed no evidence of pulmonary embolism but there was interval development of large left-sided pleural effusion. Patient underwent thoracentesis with removal of 1 L of fluid. His breathing has improved. Labs showed hemoglobin of 8.5. He denies any bleeding. He is taking iron and vitamin B12. Review of Systems 2 Review of Systems: Review of system as per history otherwise negative [facility] Past Medical History Medical History (Updated 11/15/24 @ 22:33 by Loyda Thompson DO) Metastatic adenocarcinoma to brain Insomnia Hyponatremia Secondary malignant neoplasm of bone Anemia Prediabetes Family history of melanoma History of colonic polyps Basal cell carcinoma Prostate cancer (~2020) Other and unspecified hyperlipidemia Osteoarthritis of knee, unspecified Surgical History Surgical History (Updated 11/15/24 @ 22:25 by Loyda Thompson DO) Status post cataract extraction of both eyes with insertion of intraocular lens (2023) Port-A-Cath in place (09/17/24) History of craniotomy (10/20/24) left frontal lobe lesion resection History of tonsillectomy Family History Family History Father Acute myocardial infarction Heart disease Mother Breast cancer Sibling Melanoma Social History Social History (Updated 11/16/24 @ 08:36 by Loyda Thompson DO) Social History: 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 He lives with his of 58 years. They raised 3 sons. Patient has smoked 1 pack of cigarettes per day for 35-40 years but quit smoking in 1999. He used to drink 2 alcoholic beverages a night but has cut back since his recent illness. He denies history of illicit substance use. He has been ambulating with a walker since he was discharged from the hospital in October at following his craniotomy. Code status: Full code (the patient initially told me that he did not want to be intubated but when discussing cardiac resuscitation he stated that he would defer all decisions to his son Chente. He stated that Chente would not do something that was not necessary any wants him to make the his decisions for him. Smoking packs per day: 1 Smoking cigarettes per day: 20.0 Years smoked: 40 Smoking pack-years: 40.00 Smoking status: Former smoker Tobacco type: cigarettes Second hand tobacco smoke exposure: No Smoking end date: 07/11/99 Alcohol intake: current Drinks per week: 21 Alcohol use details: Liquor Substance use: never Substance use type: does not use Do You Feel Safe in your Home?: Yes Lack of Transportation: No Lack of Food: Never True Current Housing: I Have Housing Concerned About Future Housing: No Difficulty Paying Gas/Electric Bills: No Difficulty Paying for Meds: No Currently Unemployed: No Education: High School Diploma/GED Difficulty w/ Childcare or Family Care: No Living arrangements: with family Additional living arrangements comments: Occupation/Education: retired Gender identity (if verbalized by the patient): Male Sexual Orientation (if Verbalized by the Patient): Straight or Heterosexual Spiritual care concerns: No Agree to blood products: Yes Meds Home Medications and Allergies Home Medications Medication Instructions Recorded Confirmed Type ergocalciferol (vitamin D2) 1,250 1,250 mcg PO WEEKLY #12 caps 08/02/24 11/15/24 Rx mcg (50,000 unit) capsule simvastatin 40 mg tablet 40 mg PO QHS #90 tabs 10/10/24 11/15/24 Rx cyanocobalamin (vitamin B-12) 250 250 mcg PO DAILY 11/05/24 11/15/24 History mcg tablet ferrous sulfate 325 mg (65 mg 325 mg PO DAILY 11/05/24 11/15/24 History iron) tablet lidocaine-prilocaine 2.5 %-2.5 % 1 applic topical ONCE 11/05/24 11/15/24 History topical cream mirtazapine 7.5 mg tablet 7.5 mg PO QHS 11/05/24 11/16/24 History omeprazole magnesium 20 mg 20 mg PO DAILY 11/05/24 11/15/24 History tablet,delayed release ondansetron 8 mg disintegrating 8 mg PO ONCE 11/05/24 11/15/24 History tablet metformin 500 mg tablet,extended 500 mg PO QPM #100 tabs 11/07/24 11/15/24 Rx release 24 hr (Glucophage XR) dexamethasone 4 mg tablet 4 mg PO DAILY 11/15/24 11/15/24 History escitalopram oxalate 5 mg tablet 5 mg PO DAILY #90 tabs 11/16/24 Rx (Lexapro) Allergies Allergy/AdvReac Type Severity Reaction Status Date / Time No Known Allergies Allergy Verified 11/05/24 08:23 Vital Signs Vital Signs - 24 hr 11/15/24 17:12 11/15/24 17:17 11/15/24 17:30 Temperature 38.1 C H Pulse Rate 106 H 104 H Respiratory Rate 34 H 26 H Blood Pressure 125/71 Pulse Oximetry 74 L 93 97 Oxygen Delivery Nasal Cannula Oxygen Flow Rate 6 Fraction of Inspired Oxygen 11/15/24 17:30 11/15/24 17:53 11/15/24 17:55 Temperature Pulse Rate 98 106 H Respiratory Rate 24 H 24 H Blood Pressure Pulse Oximetry 97 Oxygen Delivery Nasal Cannula Oxygen Flow Rate 6 Fraction of Inspired Oxygen 11/15/24 18:15 11/15/24 18:46 11/15/24 19:01 Temperature Pulse Rate 103 H 100 101 H Respiratory Rate 24 H 20 20 Blood Pressure 122/63 117/65 114/63 Pulse Oximetry 100 100 94 Oxygen Delivery Oxygen Flow Rate Fraction of Inspired Oxygen 11/15/24 20:46 11/15/24 21:36 11/15/24 23:35 Temperature 36.8 C Pulse Rate 89 81 Respiratory Rate 22 H 22 H Blood Pressure 118/70 118/79 Pulse Oximetry 94 94 94 Oxygen Delivery Nasal Cannula Oxygen Flow Rate 6 Fraction of Inspired Oxygen 11/16/24 00:00 11/16/24 00:00 11/16/24 02:00 Temperature 36.4 C Pulse Rate 86 86 87 Respiratory Rate 20 Blood Pressure 125/69 Pulse Oximetry 96 Oxygen Delivery Oxygen Flow Rate Fraction of Inspired Oxygen 11/16/24 02:07 11/16/24 02:08 11/16/24 04:00 Temperature Pulse Rate 85 85 Respiratory Rate 20 20 Blood Pressure Pulse Oximetry 96 96 Oxygen Delivery Nasal Cannula Nasal Cannula Oxygen Flow Rate 4 6 Fraction of Inspired Oxygen 36 11/16/24 04:00 11/16/24 04:00 11/16/24 06:00 Temperature 37.2 C Pulse Rate 64 80 82 Respiratory Rate 20 Blood Pressure 113/62 Pulse Oximetry 91 Oxygen Delivery Oxygen Flow Rate Fraction of Inspired Oxygen 11/16/24 08:00 11/16/24 08:00 11/16/24 08:10 Temperature Pulse Rate 82 81 Respiratory Rate 18 Blood Pressure Pulse Oximetry 92 Oxygen Delivery Nasal Cannula Oxygen Flow Rate 6 Fraction of Inspired Oxygen 11/16/24 08:11 11/16/24 08:18 11/16/24 08:28 Temperature 37.1 C Pulse Rate 73 89 Respiratory Rate 18 20 Blood Pressure 111/63 Pulse Oximetry 91 92 Oxygen Delivery Nasal Cannula Oxygen Flow Rate 4 Fraction of Inspired Oxygen 11/16/24 10:00 11/16/24 11:46 11/16/24 12:00 Temperature 36.4 C Pulse Rate 79 76 81 Respiratory Rate 18 Blood Pressure 100/60 Pulse Oximetry 93 Oxygen Delivery Oxygen Flow Rate Fraction of Inspired Oxygen 11/16/24 13:20 11/16/24 13:31 11/16/24 14:00 Temperature Pulse Rate 79 84 83 Respiratory Rate 18 18 Blood Pressure Pulse Oximetry Oxygen Delivery Oxygen Flow Rate Fraction of Inspired Oxygen 11/16/24 16:00 Temperature Pulse Rate 81 Respiratory Rate Blood Pressure Pulse Oximetry Oxygen Delivery Oxygen Flow Rate Fraction of Inspired Oxygen Exam 2 Narrative: Lungs are clear to auscultation bilaterally Cardiovascular regular rate rhythm no murmurs Abdomen soft nontender nondistended Extremities no edema Results Labs 11/16/24 02:37 11/16/24 02:37 Labs: Short CBC 11/15/24 11/16/24 Range/Units 17:43 02:37 WBC 9.3 8.9 (4.5-10.0) K/mm3 Hgb 8.1 L 8.5 L (14.0-18.0) g/dL Hct 27.7 L 29.9 L (42.0-52.0) % Plt Count 299 268 (150-375) k/mm3 BMP 11/15/24 11/16/24 17:43 02:37 Sodium 134 L 137 Potassium 3.5 3.8 Chloride 99 102 Carbon Dioxide 29 27 BUN 12 10 Creatinine 0.52 L 0.50 L Glucose 117 H 277 H Calcium 7.5 L 7.2 L Cardiac Enzymes 11/15/24 11/15/24 11/16/24 Range/Units 17:43 23:34 02:37 Troponin I 0.039 H* 0.024 D 0.016 D (0.000-0.034) ng/mL Liver Function 11/15/24 Range/Units 17:43 Total Bilirubin 0.8 (0.2-1.3) mg/dL AST 28 (17-59) U/L ALT 22 (6-50) U/L Alkaline Phosphatase 109 (38-126) U/L Albumin 2.9 L (3.5-5.1) g/dL Urine 11/15/24 Range/Units 20:45 Urine Color Yellow (Yellow) Urine Appearance Clear (Clear) Urine pH 6.5 (5.0-9.0) Ur Specific [place] > 1.045 H (1.001-1.035) Urine Protein Trace (Negative) mg/dL Urine Glucose (UA) Negative (Negative) mg/dL
[2024-11-16 16:37] LABS: Influenza A QL RT-PCR Negative (Negative); Influenza B QL RT-PCR Negative (Negative); RSV RNA, RT-PCR Negative (Negative); SARS-CoV-2 RNA PCR Negative (Negative)
[2024-11-16 17:00] LABS: Appearance Pleural Fluid Bloody (Clear); Color Pleural Fluid Red (Colorless); Neutrophils Pleural Fluid 23 % (0-25); Nucleated Cell Pleural Fluid 1079 /uL (0-1000); Pleural fluid source Pleural fluid; RBC Pleural Fluid 27000 /uL (0-10000)
[2024-11-16 17:01] LABS: Lymphocytes Pleural Fluid 60 %; Macrophages Pleural Fluid 15 %; Mesothelial Cells Pleural Flui 2 %
[2024-11-16 17:28] LABS: Iron 30 ug/dL (49-181)
[2024-11-16] MEDS: CYANOCOBALAMIN 250 MCG TABLET PO (17:37)
[2024-11-16] MEDS: PANTOPRAZOLE 40 MG TABLET PO (17:37)
[2024-11-16] MEDS: metFORMIN HCL XR 500 MG TAB.SR.24H PO (17:37)
[2024-11-16] MEDS: FERROUS SULFATE 325 MG TABLET DR PO (17:37)
[2024-11-16 17:40] LABS: Percent Iron Saturation 15 % (20-50)
--- NOTE | 2024-11-16 18:00 | PC.NURSE ---
Pt transferred to room 314 bed 2 at 1800. Report given to TONNY Duron.
[2024-11-16 18:20] LABS: Vitamin B12 > 1000.0 pg/mL (239-931)
[2024-11-16] MEDS: polyethylene glycoL 3350 17 GM POWD.PACK PO (18:52)
[2024-11-16 19:56] LABS: Glucose Point of Care 202 mg/dl (65-105)
[2024-11-16] MEDS: MIRTAZAPINE 7.5 MG TABLET PO (21:01)
[2024-11-16] MEDS: ACETAMINOPHEN 325 MG TABLET 650 MG PO (21:01)
--- NOTE | 2024-11-16 23:08 | PCRCNOTE ---
Window of time for administration has passed. See next scheduled administration.
[2024-11-17] VITALS (12 sets, daily range): BP systolic 100–112; BP diastolic 53–60; PULSE 77–92; RESP 16–20; TEMP 36.1–36.6; O2SAT 91–97
[2024-11-17] MEDS: PIPERACILLIN/TAZ 4.5G/NS 100ML 4.5 GM/100 ML BAG IVPB ×5 (00:05→23:21)
[2024-11-17] MEDS: CENTRAL LINE FLUSH 10 ML IV PUSH ×4 (06:09→20:43)
[2024-11-17 07:13] LABS: Basophils Percent Auto 0.1 % (0.2-1.2); Hematocrit 26.7 % (42.0-52.0); Hemoglobin 7.6 g/dL (14.0-18.0); Immature Granulocyte Absolute 0.29 K/mm3 (0.00-0.031); Immature Granulocyte Percent A 2.1 % (0-0.5); Lymphocytes Absolute Auto 0.45 K/mm3 (0.9-3.2); Lymphocytes Percent Auto 3.3 % (18.3-44.2); Mean Corpuscular HGB Conc 28.5 g/dl (32-36); Mean Corpuscular Hemoglobin 23.6 pg (26-34); Mean Corpuscular Volume 82.9 fl (80-100); Mean Platelet Volume 9.2 fl (7.4-10.4); Monocytes Absolute Auto 0.6 K/mm3 (0.1-0.6); Neutrophils Absolute Auto 12.5 K/mm3 (1.3-6.7); Neutrophils Percent Auto 90.5 % (45.5-73.1); Nucleated Red Blood Cells Perc 0.1 % (0.0-0.2); Platelet Count Result 280 k/mm3 (150-375); Red Blood Count 3.22 M/mm3 (4.6-6.20); Red Cell Distribution Width 22.1 % (11.5-14.5); White Blood Count 13.8 K/mm3 (4.5-10.0)
[2024-11-17] MEDS: IPRATROPIUM 0.5 MG/ALBUTEROL SULFATE 2.5 MG AMPUL.NEB 3 ML INHALATION ×3 (07:20→19:57)
[2024-11-17 07:27] LABS: Alanine Aminotransferase 41 U/L (6-50); Albumin Level 2.5 g/dL (3.5-5.1); Alkaline Phosphatase 98 U/L (38-126); Anion Gap 5 mmol/L (4-12); Aspartate Amino Transferase 63 U/L (17-59); Bilirubin,Total 0.5 mg/dL (0.2-1.3); Blood Urea Nitrogen 12 mg/dL (9-20); Calcium 7.2 mg/dL (8.4-10.2); Carbon Dioxide 30 mmol/L (22-30); Chloride 105 mmol/L (98-107); Estimated CRCL calculation 86 ml/min; Estimated Glomerular Filt Rate > 60; Glucose 100 mg/dL (65-110); Potassium 3.5 mmol/L (3.4-5.0); Sodium 140 mmol/L (137-145)
[2024-11-17 07:30] LABS: Vancomycin Trough 11.7 ug/mL (10.0-20.0)
[2024-11-17 07:44] LABS: Anisocytosis 2+; Hypochromasia 1+; Ovalocytes 1+; Platelet Estimate Adequate (Adequate); Schistocytes None Seen
[2024-11-17 08:06] LABS: Glucose Point of Care 115 mg/dl (65-105)
[2024-11-17] MEDS: FERROUS SULFATE 325 MG TABLET DR PO (09:04)
[2024-11-17] MEDS: PANTOPRAZOLE 40 MG TABLET PO (09:04)
[2024-11-17] MEDS: levETIRAcetam 500 MG TABLET PO ×2 (09:04→20:41)
[2024-11-17] MEDS: CYANOCOBALAMIN 250 MCG TABLET PO (09:04)
[2024-11-17] MEDS: dexAMETHasone 4 MG TABLET PO (09:04)
[2024-11-17] MEDS: VANCOMYCIN 1,250 MG/NS 250 ML 1,250 MG/250 ML BAG 166.67 MG IVPB ×2 (09:05→17:46)
--- NOTE | 2024-11-17 11:02 | P.PNIM_ITS ---
Progress Note: A&P Assessment and Plan (1) Pleural effusion, left: Code(s): J90 - Pleural effusion, not elsewhere classified Status: Acute Assessment and Plan: * CXR: Redemonstration of a large left-sided pleural effusion with adjacent consolidation. Right hilar infiltrate is also suspected. * Chest CTA: No PE, dissection, Findings a bilaterally consistent with patient's known malignancy. Interval development of a large left-sided pleural effusion, likely contributing to patient's hypoxia * Pulmonology consulted , appreciate recommendations * If empyema or complex effusion, will need transfer * Monitor pleural fluid (if positive gram stain, pH <7.2, or positive culture) * Oncology consult pending * Broad spectrum antibiotics: Zosyn, Vanc, Levaquin * DuoNeb q6hrs, Decadron 4mg PO daily * Thoracentesis on 11/16 * Repeat CXR: Opacities in the bilateral mid and lower lung zones, left greater than right which could represent atelectasis and/or pneumonia with some improvement in the left lower lung zone. Small left pleural effusion. * Spoke with Dr. Timbo su/ Pulm, agree that if pt continues to improve, likely can D/C tomorrow (2) Pneumonia: Qualifiers: Pneumonia type: due to unspecified organism Laterality: left Lung location: unspecified part of lung Qualified Code(s): J18.9 - Pneumonia, unspecified organism Code(s): J18.9 - Pneumonia, unspecified organism Status: Acute Assessment and Plan: CXR: Redemonstration of a large left-sided pleural effusion with adjacent consolidation. Right hilar infiltrate is also suspected. - Risk Factors: Recent hospitalization, possible aspiration pneumonia, pneumonia due to immunocompromised state - started on tx: Zosyn, Vancomycin, Levofloxacin - Viral PCR: pending - Consider ordering legionella, mycoplasma and pneumococcal - 2L NC for O2 supplementation, wean throughout the day - supportive treatment - trend labs Monitor vital signs, I&Os, neuro status and patient is a fall risk Follow WBC, serum electrolytes, temperature curves and cultures Send sputum cultures Oxygen via NC; wean as tolerated. Keep SpO2 greater than 88% Gentle IV fluid resuscitation Thoracentesis with pleural fluid analysis (3) Acute hypoxic respiratory failure: Code(s): J96.01 - Acute respiratory failure with hypoxia Status: Acute Assessment and Plan: - Symptoms: Hypoxia - SpO2: 97 % on 2L NC - Oxygen supplementation: 2L NC - Suspected cause: Pleural effusion, left lung - ABG: pH 7.486, pCO2 30.6, pO2 48.6, O2 saturation 87.8, oxyhemoglobin 84.2, total hemoglobin 7.9 - EKG: NSR - Chest XR:Redemonstration of a large left-sided pleural effusion with adjacent consolidation - To undergo therapeutic + diagnositc Left sided thoracentesis - Wean O2 as appropriate (4) Sepsis: Qualifiers: Sepsis type: sepsis due to unspecified organism Sepsis acute organ dysfunction status: with acute organ dysfunction Severe sepsis acute organ dysfunction type: acute respiratory failure Acute respiratory failure type: with hypoxia Severe sepsis shock status: without septic shock Qualified Code(s): A41.9 - Sepsis, unspecified organism; R65.20 - Severe sepsis without septic shock; J96.01 - Acute respiratory failure with hypoxia Code(s): A41.9 - Sepsis, unspecified organism Status: Acute Assessment and Plan: Meets SIRS criteria: Hypoxia, tachycardia - lactic acid: 1.5 - suspected source: Pneumonia, malignancy - blood cultures drawn on 11/15 - CXR: Redemonstration of a large left-sided pleural effusion with adjacent consolidation. Right hilar infiltrate is also suspected. - Prelminary BCs negative for growth (5) Metastatic adenocarcinoma to brain: Code(s): C79.31 - Secondary malignant neoplasm of brain Status: Acute Assessment and Plan: * With prostate cancer being primary with metastases also to the liver and lung. * Oncology consulted * Will follow up with cytology results and subsequent management in the outpt setting (6) Hematuria: Code(s): R31.9 - Hematuria, unspecified Status: Acute Assessment and Plan: * Painless hematuria sample given on 11/17 * Denies any abdominal pain, physical exam benign * Initial UA unremarkable, will repeat * Urology consulted, appreciate recommendations (7) Elevated troponin: Code(s): R79.89 - Other specified abnormal findings of blood chemistry Status: Acute Assessment and Plan: * Initial trop 0.039, repeats down trending * likely due to demand ischemia * EKG: NSR * Acute occlusive myocardial event is unlikely * continues to deny chest pain, physical exam benign Time Spent With Patient Time: Subjective Date/time seen: 11/17/24 11:02 Interval history: 78-year-old male with a past medical history of 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 ER reported that the patient was evaluated by his home health nurse yesterday and his oxygen saturations were in the mid 70s. 11/17/2024 Patient sitting comfortably in bed at time of exam, does not appear to be in respiratory distress. The time of exam, patient was on 2 L nasal cannula. Continues to have adequate O2 saturation measurements. Spoke with Dr. Izquierdo of pulmonology regarding his chest x-ray results. Will continue to wean patient down on O2 supplementation and will add a home O2 eval along with incentive spirometer. Patient informed me that when he give urine sample this morning it was red. Denies any dysuria or polyuria. Previous urine sample was unremarkable, we will collect another sample and consult Urology. Otherwise patient has no complaints and states that he feels much better than yesterday. Review of Systems Review of Systems: 12 systems were reviewed with pertinent positives and negatives per HPI. Except as documented in the HPI, all other systems were reviewed and are negative. He reports that he does snore but does not have known history of sleep apnea. Exam Narrative: Gen - ill appearing male in no acute respiratory distress who is nontoxic- appearing lying semi recumbent in bed HEENT - normocephalic. Atraumatic. Pupils equal round and reactive. Extraocular motions intact. Nares patent. Oropharynx was clear. Moist mucous membranes. Tongue was midline. Palate myrna symmetrically. No facial asymmetry. Neck - neck was supple. No dominant adenopathy, thyromegaly or masses. Chest - Decreased breath sounds in left lung, wheezes in right lung with some crackles at base of right lung as well CV - heart was regular rate and rhythm. S1-S2. No murmurs gallops or rubs. Abd - abdomen was soft. Nontender. Nondistended. Positive bowel sounds. Ext - no clubbing, cyanosis or edema. 2+ DP pulses bilaterally. Neuro - patient is alert and oriented x4. Strength is 5/5 in both upper and lower extremities. Speech is clear. Psych - normal mood and affect. Patient is pleasant and cooperative. Skin - warm and dry. No rashes noted. Const: Other: Acute on chronic ill-appearing, elderly, debilitated, no overt distress HENMT: Other: Craniotomy scar over the top of the head extending to the right frontal scalp appears to be well healed with some remaining scab formation, Mucous membranes are tacky, no oral pharyngeal erythema, head is normocephalic atraumatic, nasal cannula in place Eyes: Other: Pupils are equal and reactive, positive conjunctival pallor, no scleral icterus Neck: Other: No JVD, no overt lymphadenopathy trachea midline Resp: Other: Diffuse wheezing bilateral anterior and posterior lung pinon, conversational tachypnea Cardio: Other: Regular rate, regular rhythm, 2+ bilateral radial pedal pulses GI: Other: Soft, nontender, nondistended, positive bowel sounds : Other: Continent of urine Back/Spine/Pelvis: Other: Mild thoracic kyphosis Skin: Other: Generalized pallor, non jaundice, warm to touch Neuro: Other: Alert orient x4, speech is clear, no facial asymmetry, no localizing neurologic deficits noted during the course of conversation Extrem: Other: No clubbing, cyanosis or edema, moves all extremities equally, generalized muscle wasting Psych: Other: Appropriate mood and affect, pleasant and cooperative, judgment and insight intact Objective Data Vital Signs Vital Signs: Vital Signs - 24 hr 11/16/24 11:46 11/16/24 12:00 11/16/24 13:20 Temperature 97.6 F Pulse Rate 76 81 79 Respiratory Rate 18 18 Blood Pressure 100/60 Pulse Oximetry 93 Oxygen Delivery Oxygen Flow Rate 11/16/24 13:31 11/16/24 14:00 11/16/24 16:00 Temperature Pulse Rate 84 83 81 Respiratory Rate 18 Blood Pressure Pulse Oximetry Oxygen Delivery Oxygen Flow Rate 11/16/24 16:33 11/17/24 00:00 11/17/24 05:45 Temperature 97.8 F 97.4 F L 97.8 F Pulse Rate 82 92 77 Respiratory Rate 18 20 18 Blood Pressure 102/50 L 101/60 100/59 L Pulse Oximetry 96 96 97 Oxygen Delivery Oxygen Flow Rate 11/17/24 07:20 11/17/24 07:20 11/17/24 07:26 Temperature Pulse Rate 77 79 Respiratory Rate 16 16 Blood Pressure Pulse Oximetry 96 Oxygen Delivery Nasal Cannula Oxygen Flow Rate 2 Intake/Output Intake/Output: Intake & Output 11/14/24 11/15/24 11/16/24 11/17/24 23:59 23:59 23:59 23:59 Intake Total 1550 1470 790 Output Total 1500 250 Balance 1550 -30 540 Meds/Results Medications: Active Medications Generic Name Dose Route Start Last Admin Trade Name Freq PRN Reason Stop Dose Admin Acetaminophen 650 mg 11/15/24 22:40 11/16/24 21:01 Acetaminophen 325 Mg Tablet PO 650 mg Q4H PRN Administration Mild Pain (1-3) or Fever Albuterol/Ipratropium 3 ml 11/16/24 02:00 11/17/24 07:20 Ipratropium 0.5 Mg/Albuterol Sulfate 2.5 Mg Ampul.Neb 3 Ml INHALATION 3 ml Q6HRT MIGUELITO Administration Calcium Carbonate 200 mg 11/15/24 22:40 Calcium Carbonate (Tums) 500 Mg (200 Mg Elemental) PO Q6H PRN Indigestion Cyanocobalamin 250 mcg 11/16/24 09:00 11/17/24 09:04 Cyanocobalamin 250 Mcg Tablet PO 250 mcg DAILY MIGUELITO Administration Dexamethasone 4 mg 11/16/24 09:00 11/17/24 09:04 Dexamethasone 4 Mg Tablet PO 4 mg DAILY MIGUELITO Administration Dextrose 12.5 gm 11/16/24 06:57 Dextrose 50% 25 Gm/50 Ml Syringe IV PUSH PRN PRN Hypoglycemia Protocol Diphenhydramine HCl 25 mg 11/16/24 06:56 Diphenhydramine Hcl Cap 25 Mg Capsule PO HS PRN Insomnia Ferrous Sulfate 325 mg 11/16/24 08:00 11/17/24 09:04 Ferrous Sulfate [address] PO 325 mg DAILY@0800 MIGUELITO Administration Glucagon 1 mg 11/16/24 06:57 Glucagon For Inj 1 Mg Vial IM PRN PRN Hypoglycemia Protocol Glucose 15 gm 11/16/24 06:57 Glucose Oral Gel 15 Gm Of Glucse In 37.5 Gm Tube PO PRN PRN Hypoglycemia Protocol Heparin Sodium (Beef Lung) 50 units 11/17/24 09:00 11/17/24 09:05 Heparin Flush 50 Units/5 Ml Syringe IV PUSH 50 units QAM MIGUELITO Administration Heparin Sodium (Beef Lung) 50 units 11/16/24 10:54 Heparin Flush 50 Units/5 Ml Syringe IV PUSH PRN PRN after intermittent infusion Heparin Sodium (Beef Lung) 50 units 11/16/24 10:54 Heparin Flush 50 Units/5 Ml Syringe IV PUSH PRN PRN after blood draws Heparin Sodium (Porcine) 500 units 11/16/24 10:54 Heparin Sodium Lock Flush 500 Units/5 Ml Syringe IV PUSH PRN PRN see comments below Piperacillin Sod/Tazobactam Sod 4.5 gm in 100 mls @ 200 mls/hr 11/16/24 06:00 11/17/24 11:00 Zosyn 4.5 Gm/Ns 100 Ml IVPB 200 mls/hr Q6H MIGUELITO Administration Dextrose 1,000 mls @ 100 mls/hr 11/16/24 06:57 Dextrose 5% 1,000 Ml IVPB PRN PRN Hypoglycemia Protocol Levofloxacin/Dextrose 750 mg in 150 mls @ 100 mls/hr 11/16/24 12:30 11/16/24 13:02 Levaquin 750 Mg/D5w 150 Ml IVPB 100 mls/hr Q24H MIGUELITO Administration Vancomycin HCl 1,250 mg in 250 mls @ 166.667 mls/hr 11/17/24 09:00 11/17/24 09:05 Vancomycin 1,250 Mg/Ns 250 Ml IVPB 166.67 mls/hr Q8H MIGUELITO Administration Insulin Aspart 3 - 6 units 11/16/24 08:00 11/17/24 09:04 Insulin Aspart (*Bkc) 100 Units/Ml SUB-Q Not Given TIDWM MIGUELITO Protocol Insulin Aspart 1 - 3 units 11/16/24 21:00 11/16/24 21:07 Insulin Aspart (*Bkc) 100 Units/Ml SUB-Q Not Given HS MIGUELITO Protocol Levetiracetam 500 mg 11/16/24 09:00 11/17/24 09:04 Levetiracetam 500 Mg Tablet PO 500 mg Q12HR MIGUELITO Administration Metformin HCl 500 mg 11/16/24 18:00 11/16/24 17:37 Metformin Hcl Xr 500 Mg Tab.Sr.24h PO 500 mg QPM MIGUELITO Administration Mirtazapine 7.5 mg 11/16/24 21:00 11/16/24 21:01 Mirtazapine 7.5 Mg Tablet PO 7.5 mg QHS MIGUELITO Administration Ondansetron HCl 4 mg 11/15/24 22:40 Ondansetron Inj 4 Mg/2 Ml Vial IV PUSH Q6H PRN Nausea And Vomiting Pantoprazole Sodium 40 mg 11/16/24 09:00 11/17/24 09:04 Pantoprazole 40 Mg Tablet PO 12/16/24 08:59 40 mg DAILY MIGUELITO Administration Polyethylene Glycol 17 gm 11/16/24 18:32 11/16/24 18:52 Polyethylene Glycol 3350 17 Gm Powd.Pack PO 17 gm QAM PRN Administration Constipation Sodium Chloride 10 ml 11/16/24 14:00 11/17/24 06:09 Central Line Flush IV PUSH 10 ml Q8HR MIGUELITO Administration Sodium Chloride 10 ml 11/16/24 14:00 11/17/24 06:09 Central Line Flush IV PUSH Not Given Q8HR MIGUELITO Radiology Results: ITS Impressions Chest CTA 11/15/24 19:34 IMPRESSION: No pulmonary embolus. No thoracic aortic dissection. 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 Interval development of a large left-sided pleural effusion, likely contributing to patient's hypoxia as this is an interval change from 08/02/2024 examination. Thoracentesis Ultrasound 11/16/24 16:06 IMPRESSION: 1. Successful ultrasound-guided thoracentesis yielding 1100 mL of dark reddish fluid. Chest X-Ray 11/17/24 06:56 IMPRESSION: 1. Opacities in the bilateral mid and lower lung zones, left greater than right which could represent atelectasis and/or pneumonia with some improvement in the left lower lung zone. 2. Small left pleural effusion. Labs Labs: Laboratory Results - last 24 hr 11/16/24 11/16/24 11/16/24 02:33 11:29 14:09 WBC RBC Hgb Hct MCV MCH MCHC RDW Plt Count MPV Immature Gran % (Auto) Neut % (Auto) Lymph % (Auto) [place] % (Auto) Eos % (Auto) Baso % (Auto) Lymph # (Auto) [place] # (Auto) Eos # (Auto) Baso # (Auto) Abs Immat Gran (auto) Absolute Neuts (auto) Absolute Nucleated RBC Band Neutrophils % Nucleated RBC % Platelet Estimate Hypochromasia Anisocytosis Ovalocytes Schistocytes Puncture Site Left radial ABG pH 7.486 H ABG pCO2 30.6 L ABG pO2 48.6 L* ABG PO2/FiO2 Ratio 1.74 ABG HCO3 22.6 ABG O2 Saturation 87.8 L* ABG O2 Content 9.4 L ABG Base Excess -0.5 A-a Gradient 114.9 Oxyhemoglobin 84.2 L* Total Hemoglobin 7.9 L O2 Delivery Device Nasal cannula O2 Liters/Min 2.0 FiO2 28 Sodium Potassium Chloride Carbon Dioxide Anion Gap BUN Creatinine Estim Creat Clear Calc Estimated GFR Glucose POC Capillary Glucose 157 H Calcium Iron 30 L TIBC 203 L % Saturation 15 L Ferritin 680.00 H Total Bilirubin AST ALT Alkaline Phosphatase Total Protein 6.0 L Albumin Vitamin B12 > 1000.0 H Folate 11.0 Pleural Fluid Source Pleural Color Pleural Appearance Pleural pH Pleural RBC Pleural Nuc Cells Pleural Neutrophils Pleural Lymphocytes Pleural Macrophages Pleural Mesothelial Vancomycin Trough Influenza A (RT-PCR) Influenza B (RT-PCR) RSV (RT-PCR) SARS-CoV-2 RNA (RT-PCR) 11/16/24 11/16/24 11/16/24 15:10 15:50 15:56 WBC RBC Hgb Hct MCV MCH MCHC RDW Plt Count MPV Immature Gran % (Auto) Neut % (Auto) Lymph % (Auto) [place] % (Auto) Eos % (Auto) Baso % (Auto) Lymph # (Auto) [place] # (Auto) Eos # (Auto) Baso # (Auto) Abs Immat Gran (auto) Absolute Neuts (auto) Absolute Nucleated RBC Band Neutrophils % Nucleated RBC % Platelet Estimate Hypochromasia Anisocytosis Ovalocytes Schistocytes Puncture Site ABG pH ABG pCO2 ABG pO2 ABG PO2/FiO2 Ratio ABG HCO3 ABG O2 Saturation ABG O2 Content ABG Base Excess A-a Gradient Oxyhemoglobin Total Hemoglobin O2 Delivery Device O2 Liters/Min FiO2 Sodium Potassium Chloride Carbon Dioxide Anion Gap BUN Creatinine Estim Creat Clear Calc Estimated GFR Glucose POC Capillary Glucose 173 H Calcium Iron TIBC % Saturation Ferritin Total Bilirubin AST ALT Alkaline Phosphatase Total Protein Albumin Vitamin B12 Folate Pleural Fluid Source Pleural fluid Pleural Color Red Pleural Appearance Bloody Pleural pH Pleural RBC 60219 H Pleural Nuc Cells 1079 H Pleural Neutrophils 23 Pleural Lymphocytes 60 Pleural Macrophages 15 Pleural Mesothelial 2 Vancomycin Trough Influenza A (RT-PCR) Negative Influenza B (RT-PCR) Negative RSV (RT-PCR) Negative SARS-CoV-2 RNA (RT-PCR) Negative 11/16/24 11/16/24 11/17/24 15:58 19:32 07:02 WBC 13.8 H RBC 3.22 L Hgb 7.6 L Hct 26.7 L MCV 82.9 MCH 23.6 L MCHC 28.5 L RDW 22.1 H Plt Count 280 MPV 9.2 Immature Gran % (Auto) 2.1 H Neut % (Auto) 90.5 H Lymph % (Auto) 3.3 L [place] % (Auto) 4.0 Eos % (Auto) 0.0 Baso % (Auto) 0.1 L Lymph # (Auto) 0.45 L [place] # (Auto) 0.6 Eos # (Auto) 0.0 Baso # (Auto) 0.0 Abs Immat Gran (auto) 0.29 H Absolute Neuts (auto) 12.5 H Absolute Nucleated RBC 0.020 H Band Neutrophils % Not Reportable Nucleated RBC % 0.1 Platelet Estimate Adequate Hypochromasia 1+ Anisocytosis 2+ Ovalocytes 1+ Schistocytes None seen Puncture Site ABG pH ABG pCO2 ABG pO2 ABG PO2/FiO2 Ratio ABG HCO3 ABG O2 Saturation ABG O2 Content ABG Base Excess A-a Gradient Oxyhemoglobin Total Hemoglobin O2 Delivery Device O2 Liters/Min FiO2 Sodium 140 Potassium 3.5 Chloride 105 Carbon Dioxide 30 Anion Gap 5 BUN 12 Creatinine 0.56 L Estim Creat Clear Calc 86 Estimated GFR > 60 Glucose 100 POC Capillary Glucose 202 H Calcium 7.2 L Iron TIBC % Saturation Ferritin Total Bilirubin 0.5 AST 63 H ALT 41 Alkaline Phosphatase 98 Total Protein 5.0 L Albumin 2.5 L Vitamin B12 Folate Pleural Fluid Source Pleural Color Pleural Appearance Pleural pH > 7.500 H Pleural RBC Pleural Nuc Cells Pleural Neutrophils Pleural Lymphocytes Pleural Macrophages Pleural Mesothelial Vancomycin Trough 11.7 Influenza A (RT-PCR) Influenza B (RT-PCR) RSV (RT-PCR) SARS-CoV-2 RNA (RT-PCR) 11/17/24 08:03 WBC RBC Hgb Hct MCV MCH MCHC RDW Plt Count MPV Immature Gran % (Auto) Neut % (Auto) Lymph % (Auto) [place] % (Auto) Eos % (Auto) Baso % (Auto) Lymph # (Auto) [place] # (Auto) Eos # (Auto) Baso # (Auto) Abs Immat Gran (auto) Absolute Neuts (auto) Absolute Nucleated RBC Band Neutrophils % Nucleated RBC % Platelet Estimate Hypochromasia Anisocytosis Ovalocytes Schistocytes Puncture Site ABG pH ABG pCO2 ABG pO2 ABG PO2/FiO2 Ratio ABG HCO3 ABG O2 Saturation ABG O2 Content ABG Base Excess A-a Gradient Oxyhemoglobin Total Hemoglobin O2 Delivery Device O2 Liters/Min FiO2 Sodium Potassium Chloride Carbon Dioxide Anion Gap BUN Creatinine Estim Creat Clear Calc Estimated GFR Glucose POC Capillary Glucose 115 H Calcium Iron TIBC % Saturation Ferritin Total Bilirubin AST ALT Alkaline Phosphatase Total Protein Albumin Vitamin B12 Folate Pleural Fluid Source Pleural Color Pleural Appearance Pleural pH Pleural RBC Pleural Nuc Cells Pleural Neutrophils Pleural Lymphocytes Pleural Macrophages Pleural Mesothelial Vancomycin Trough Influenza A (RT-PCR) Influenza B (RT-PCR) RSV (RT-PCR) SARS-CoV-2 RNA (RT-PCR) Quality VTE Prophylaxis VTE prophylaxis: mechanical ordered (SCDs)
[2024-11-17] MEDS: levoFLOXacin 750 MG/D5W 150 ML 750 MG/150 ML BAG 100 MG IVPB (11:38)
[2024-11-17 12:03] LABS: Glucose Point of Care 136 mg/dl (65-105)
[2024-11-17 14:05] LABS: Bacteria Urine None Seen /hpf; Non Pathogenic Casts 0-2; RBC Urine >100 /hpf (0-2); Squamous Epithelial Cell Urine None Seen /hpf (Few); WBC Urine 0-5 /hpf (0-3)
[2024-11-17 14:08] LABS: Add Urine Microscopic? YES; Appearance Urine Cloudy (Clear); Bilirubin Urine Negative (Negative); Blood Urine 3+ (Negative); Glucose Urine UA Negative (Negative); Ketones Urine Negative (Negative); Leukocyte Esterase Ur Trace LEU/UL (Negative); Nitrate Urine Negative (Negative); Protein Urine 1+ mg/dL (Negative); Specific Grav Ur 1.019 (1.001-1.035)
[2024-11-17 14:09] LABS: Color Urine Amber (Yellow)
[2024-11-17] MEDS: metFORMIN HCL XR 500 MG TAB.SR.24H PO (17:03)
[2024-11-17 17:05] LABS: Glucose Point of Care 129 mg/dl (65-105)
[2024-11-17] MEDS: MIRTAZAPINE 7.5 MG TABLET PO (20:43)
[2024-11-17 20:44] LABS: Glucose Point of Care 168 mg/dl (65-105)
[2024-11-18] VITALS (10 sets, daily range): BP systolic 116–123; BP diastolic 55–76; PULSE 80–91; RESP 16–20; TEMP 36–36.3; O2SAT 91–95
[2024-11-18] MEDS: VANCOMYCIN 1,250 MG/NS 250 ML 1,250 MG/250 ML BAG 166.67 MG IVPB ×2 (00:50→12:53)
[2024-11-18] MEDS: IPRATROPIUM 0.5 MG/ALBUTEROL SULFATE 2.5 MG AMPUL.NEB 3 ML INHALATION ×4 (01:55→20:55)
--- NOTE | 2024-11-18 01:56 | PCRCNOTE ---
Pt asked to remain sleep for his 0200 tx.
[2024-11-18 03:33] LABS: Creatinine Urine 51.1 mg/dL; Total Protein Urine Random 96 mg/dL; Ur Ttl Prot Creatinine Ratio 1.88 mg/mg (0-0.20)
[2024-11-18 03:34] LABS: Total Protein Urine Random 94 mg/dL
[2024-11-18 03:46] LABS: Creatinine Urine 51.3 mg/dL
[2024-11-18] MEDS: PIPERACILLIN/TAZ 4.5G/NS 100ML 4.5 GM/100 ML BAG IVPB ×4 (06:20→23:53)
[2024-11-18] MEDS: CENTRAL LINE FLUSH 10 ML IV PUSH ×2 (06:21→14:53)
[2024-11-18 06:55] LABS: Basophils Percent Auto 0.1 % (0.2-1.2); Eosinophils Percent Auto 0.1 % (0-4.4); Hematocrit 25.2 % (42.0-52.0); Hemoglobin 7.1 g/dL (14.0-18.0); Immature Granulocyte Absolute 0.47 K/mm3 (0.00-0.031); Immature Granulocyte Percent A 4.6 % (0-0.5); Lymphocytes Absolute Auto 0.54 K/mm3 (0.9-3.2); Lymphocytes Percent Auto 5.3 % (18.3-44.2); Mean Corpuscular HGB Conc 28.2 g/dl (32-36); Mean Corpuscular Hemoglobin 23.5 pg (26-34); Mean Corpuscular Volume 83.4 fl (80-100); Mean Platelet Volume 9.2 fl (7.4-10.4); Monocytes Absolute Auto 0.5 K/mm3 (0.1-0.6); Monocytes Percent Auto 5.1 % (2.6-8.5); Neutrophils Absolute Auto 8.6 K/mm3 (1.3-6.7); Neutrophils Percent Auto 84.8 % (45.5-73.1); Nucleated Red Blood Cells Perc 0.3 % (0.0-0.2); Platelet Count Result 272 k/mm3 (150-375); Red Blood Count 3.02 M/mm3 (4.6-6.20); Red Cell Distribution Width 22.5 % (11.5-14.5); White Blood Count 10.2 K/mm3 (4.5-10.0)
[2024-11-18 07:06] LABS: Alanine Aminotransferase 47 U/L (6-50); Albumin Level 2.4 g/dL (3.5-5.1); Alkaline Phosphatase 85 U/L (38-126); Anion Gap 5 mmol/L (4-12); Aspartate Amino Transferase 44 U/L (17-59); Bilirubin,Total 0.4 mg/dL (0.2-1.3); Blood Urea Nitrogen 11 mg/dL (9-20); Calcium 7.3 mg/dL (8.4-10.2); Carbon Dioxide 28 mmol/L (22-30); Chloride 108 mmol/L (98-107); Estimated CRCL calculation 76 ml/min; Estimated Glomerular Filt Rate > 60; Glucose 85 mg/dL (65-110); Potassium 3.2 mmol/L (3.4-5.0); Sodium 141 mmol/L (137-145)
[2024-11-18 07:10] LABS: CRP 8.9 mg/dL (<1.0); Creatine Kinase < 20 U/L (55-170)
[2024-11-18 07:10] LABS: Vancomycin Trough 21.5 ug/mL (10.0-20.0)
[2024-11-18 07:18] LABS: Anisocytosis 2+; Hypochromasia 2+; Ovalocytes 2+; Platelet Estimate Adequate (Adequate); Schistocytes None Seen
[2024-11-18 07:19] LABS: Erythrocyte Sedimentation Rate > 140 mm/hr (0-20)
[2024-11-18 07:49] LABS: Glucose Point of Care 79 mg/dl (65-105)
[2024-11-18 08:01] LABS: Magnesium 2.3 mg/dL (1.6-2.3)
--- NOTE | 2024-11-18 08:31 | P.PNIM_ITS ---
Progress Note: A&P Assessment and Plan (1) Pleural effusion, left: Code(s): J90 - Pleural effusion, not elsewhere classified Status: Acute Assessment and Plan: * CXR: Redemonstration of a large left-sided pleural effusion with adjacent consolidation. Right hilar infiltrate is also suspected. * Chest CTA: No PE, dissection, Findings a bilaterally consistent with patient's known malignancy. Interval development of a large left-sided pleural effusion, likely contributing to patient's hypoxia * Pulmonology following * Pleural fluid: pH >7.5, Ple[place] [address], bloody appearance, albumin+LDH pending * Broad spectrum antibiotics: Zosyn, Vanc, Levaquin * DuoNeb q6hrs, Decadron 4mg PO daily * Thoracentesis on 11/16 * Repeat CXR on 11/17 shows improving effusion * Repeat CXR on 11/18: Bilateral airspace disease may represent edema or pneumonia, moderate left pleural effusion, possibly loculated * Spoke with Dr. Izquierdo again, okay with discharge from his stand point pending Home O2 eval * O2 eval by RT likely tomorrow (2) Pneumonia: Qualifiers: Laterality: left Lung location: unspecified part of lung Pneumonia type: due to unspecified organism Qualified Code(s): J18.9 - Pneumonia, unspecified organism Code(s): J18.9 - Pneumonia, unspecified organism Status: Acute Assessment and Plan: CXR: Redemonstration of a large left-sided pleural effusion with adjacent consolidation. Right hilar infiltrate is also suspected. - Risk Factors: Recent hospitalization, possible aspiration pneumonia, pneumonia due to immunocompromised state - started on tx: Zosyn, Vancomycin, Levofloxacin - Viral PCR: pending - Consider ordering legionella, mycoplasma and pneumococcal - 2L NC for O2 supplementation, wean throughout the day - Monitor vital signs, I&Os, neuro status and patient is a fall risk - Follow WBC, serum electrolytes, temperature curves and cultures - Upon discharge will continue antibiotic coverage (3) Acute hypoxic respiratory failure: Code(s): J96.01 - Acute respiratory failure with hypoxia Status: Acute Assessment and Plan: - Symptoms: Hypoxia - SpO2: 97 % on 2L NC - Oxygen supplementation: 2L NC - Suspected cause: Pleural effusion, left lung - ABG: pH 7.486, pCO2 30.6, pO2 48.6, O2 saturation 87.8, oxyhemoglobin 84.2, total hemoglobin 7.9 - EKG: NSR - Chest XR:Redemonstration of a large left-sided pleural effusion with adjacent consolidation - Thoracentesis 11/16 - Wean O2 as appropriate - See Problem 1 (4) Sepsis: Qualifiers: Acute respiratory failure type: with hypoxia Sepsis acute organ dysfunction status: with acute organ dysfunction Sepsis type: sepsis due to unspecified organism Severe sepsis acute organ dysfunction type: acute respiratory failure Severe sepsis shock status: without septic shock Qualified Code(s): A41.9 - Sepsis, unspecified organism; R65.20 - Severe sepsis without septic shock; J96.01 - Acute respiratory failure with hypoxia Code(s): A41.9 - Sepsis, unspecified organism Status: Acute Assessment and Plan: Meets SIRS criteria: Hypoxia, tachycardia - lactic acid: 1.5 - suspected source: Pneumonia, malignancy - blood cultures drawn on 11/15 - CXR: Redemonstration of a large left-sided pleural effusion with adjacent consolidation. Right hilar infiltrate is also suspected. - Prelminary BCs negative for growth - Leukocytosis improving - Sepsis unlikely (5) Metastatic adenocarcinoma to brain: Code(s): C79.31 - Secondary malignant neoplasm of brain Status: Acute Assessment and Plan: * With prostate cancer being primary with metastases also to the liver and lung. 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 * No plan for intervention unless it recurs (7) Elevated troponin: Code(s): R79.89 - Other specified abnormal findings of blood chemistry Status: Acute Assessment and Plan: * Initial trop 0.039, repeats down trending * likely due to demand ischemia * EKG: NSR * Acute occlusive myocardial event is unlikely * continues to deny chest pain, physical exam benign Time Spent With Patient Time: Subjective Date/time seen: 11/18/24 08:31 Interval history: 78-year-old male with a past medical history of 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 ER reported that the patient was evaluated by his home health nurse yesterday and his oxygen saturations were in the mid 70s. 11/18/2024 Patient in high spirits today. Hematuria seems to be resolving, seen by Dr. Yoo today, states that hematuria likely 2/2 radiation cystitis. Leukocytosis also improving. Ca+ and K+ continues to be low, will need to supplement and monitor tomorrow. Will obtain additional repeat CXR to assess for worsening pleural effusion. Will look for discharge tomorrow as long as effusion improving and able to obtain a home O2 eval if still requiring O2 supplementation. Review of Systems Review of Systems: 12 systems were reviewed with pertinent positives and negatives per HPI. Except as documented in the HPI, all other systems were reviewed and are negative. He reports that he does snore but does not have known history of sleep apnea. Exam Narrative: Gen - ill appearing male in no acute respiratory distress who is nontoxic- appearing lying semi recumbent in bed HEENT - normocephalic. Atraumatic. Nares patent. Moist mucous membranes. Tongue was midline. Palate myrna symmetrically. No facial asymmetry. Neck - neck was supple. No dominant adenopathy, thyromegaly or masses. Chest - Respiratory effort normal. Some wheezing in right lower lung, decrease breath sounds in lower left lung and crackles in middle lobe, but improving CV - heart was regular rate and rhythm. S1-S2. No murmurs gallops or rubs. Abd - abdomen was soft. Nontender. Nondistended. Positive bowel sounds. Ext - no clubbing, cyanosis or edema. 2+ DP pulses bilaterally. Neuro - patient is alert and oriented x4. Speech is clear. Psych - normal mood and affect. Patient is pleasant and cooperative. Skin - warm and dry. No rashes noted. Const: Other: Acute on chronic ill-appearing, elderly, debilitated, no overt distress HENMT: Other: Craniotomy scar over the top of the head extending to the right frontal scalp appears to be well healed with some remaining scab formation, Mucous membranes are tacky, no oral pharyngeal erythema, head is normocephalic atraumatic, nasal cannula in place Eyes: Other: Pupils are equal and reactive, positive conjunctival pallor, no scleral icterus Neck: Other: No JVD, no overt lymphadenopathy trachea midline Resp: Other: Diffuse wheezing bilateral anterior and posterior lung pinon, conversational tachypnea Cardio: Other: Regular rate, regular rhythm, 2+ bilateral radial pedal pulses GI: Other: Soft, nontender, nondistended, positive bowel sounds : Other: Continent of urine Back/Spine/Pelvis: Other: Mild thoracic kyphosis Skin: Other: Generalized pallor, non jaundice, warm to touch Neuro: Other: Alert orient x4, speech is clear, no facial asymmetry, no localizing neurologic deficits noted during the course of conversation Extrem: Other: No clubbing, cyanosis or edema, moves all extremities equally, generalized muscle wasting Psych: Other: Appropriate mood and affect, pleasant and cooperative, judgment and insight intact Objective Data Vital Signs Vital Signs: Vital Signs - 24 hr 11/17/24 14:11 11/17/24 14:19 11/17/24 15:21 Temperature 97.7 F Pulse Rate 83 87 87 Respiratory Rate 16 16 18 Blood Pressure 109/59 L Pulse Oximetry 91 Oxygen Delivery Oxygen Flow Rate 11/17/24 19:57 11/17/24 20:07 11/17/24 22:00 Temperature 97 F L Pulse Rate 88 88 92 Respiratory Rate 16 16 18 Blood Pressure 112/53 L Pulse Oximetry 92 Oxygen Delivery Oxygen Flow Rate 11/17/24 22:30 11/18/24 06:00 Temperature 96.8 F L Pulse Rate 91 Respiratory Rate 18 Blood Pressure 116/55 L Pulse Oximetry 96 95 Oxygen Delivery Nasal Cannula Oxygen Flow Rate 2 Intake/Output Intake/Output: Intake & Output 11/15/24 11/16/24 11/17/24 11/18/24 23:59 23:59 23:59 23:59 Intake Total 1550 1620 2130 Output Total 1500 1050 200 Balance 7292 038 9200 -200 Meds/Results Medications: Active Medications Generic Name Dose Route Start Last Admin Trade Name Freq PRN Reason Stop Dose Admin Acetaminophen 650 mg 11/15/24 22:40 11/16/24 21:01 Acetaminophen 325 Mg Tablet PO 650 mg Q4H PRN Administration Mild Pain (1-3) or Fever Albuterol/Ipratropium 3 ml 11/16/24 02:00 11/18/24 01:55 Ipratropium 0.5 Mg/Albuterol Sulfate 2.5 Mg Ampul.Neb 3 Ml INHALATION 3 ml Q6HRT MIGUELITO Administration Calcium Carbonate 200 mg 11/15/24 22:40 Calcium Carbonate (Tums) 500 Mg (200 Mg Elemental) PO Q6H PRN Indigestion Cyanocobalamin 250 mcg 11/16/24 09:00 11/17/24 09:04 Cyanocobalamin 250 Mcg Tablet PO 250 mcg DAILY MIGUELITO Administration Dexamethasone 4 mg 11/16/24 09:00 11/17/24 09:04 Dexamethasone 4 Mg Tablet PO 4 mg DAILY MIGUELITO Administration Dextrose 12.5 gm 11/16/24 06:57 Dextrose 50% 25 Gm/50 Ml Syringe IV PUSH PRN PRN Hypoglycemia Protocol Diphenhydramine HCl 25 mg 11/16/24 06:56 Diphenhydramine Hcl Cap 25 Mg Capsule PO HS PRN Insomnia Ferrous Sulfate 325 mg 11/16/24 08:00 11/17/24 09:04 Ferrous Sulfate [address] PO 325 mg DAILY@0800 MIGUELITO Administration Glucagon 1 mg 11/16/24 06:57 Glucagon For Inj 1 Mg Vial IM PRN PRN Hypoglycemia Protocol Glucose 15 gm 11/16/24 06:57 Glucose Oral Gel 15 Gm Of Glucse In 37.5 Gm Tube PO PRN PRN Hypoglycemia Protocol Heparin Sodium (Beef Lung) 50 units 11/17/24 09:00 11/17/24 09:05 Heparin Flush 50 Units/5 Ml Syringe IV PUSH 50 units QAM MIGUELITO Administration Heparin Sodium (Beef Lung) 50 units 11/16/24 10:54 Heparin Flush 50 Units/5 Ml Syringe IV PUSH PRN PRN after intermittent infusion Heparin Sodium (Beef Lung) 50 units 11/16/24 10:54 Heparin Flush 50 Units/5 Ml Syringe IV PUSH PRN PRN after blood draws Heparin Sodium (Porcine) 500 units 11/16/24 10:54 Heparin Sodium Lock Flush 500 Units/5 Ml Syringe IV PUSH PRN PRN see comments below Piperacillin Sod/Tazobactam Sod 4.5 gm in 100 mls @ 200 mls/hr 11/16/24 06:00 11/18/24 06:20 Zosyn 4.5 Gm/Ns 100 Ml IVPB 200 mls/hr Q6H MIGUELITO Administration Dextrose 1,000 mls @ 100 mls/hr 11/16/24 06:57 Dextrose 5% 1,000 Ml IVPB PRN PRN Hypoglycemia Protocol Levofloxacin/Dextrose 750 mg in 150 mls @ 100 mls/hr 11/16/24 12:30 11/17/24 11:38 Levaquin 750 Mg/D5w 150 Ml IVPB 100 mls/hr Q24H MIGUELITO Administration Insulin Aspart 3 - 6 units 11/16/24 08:00 11/17/24 17:01 Insulin Aspart (*Bkc) 100 Units/Ml SUB-Q Not Given TIDWM MIGUELITO Protocol Insulin Aspart 1 - 3 units 11/16/24 21:00 11/17/24 20:40 Insulin Aspart (*Bkc) 100 Units/Ml SUB-Q Not Given HS MIGUELITO Protocol Levetiracetam 500 mg 11/16/24 09:00 11/17/24 20:41 Levetiracetam 500 Mg Tablet PO 500 mg Q12HR MIGUELITO Administration Metformin HCl 500 mg 11/16/24 18:00 11/17/24 17:03 Metformin Hcl Xr 500 Mg Tab.Sr.24h PO 500 mg QPM MIGUELITO Administration Mirtazapine 7.5 mg 11/16/24 21:00 11/17/24 20:43 Mirtazapine 7.5 Mg Tablet PO 7.5 mg QHS MIGUELITO Administration Ondansetron HCl 4 mg 11/15/24 22:40 Ondansetron Inj 4 Mg/2 Ml Vial IV PUSH Q6H PRN Nausea And Vomiting Pantoprazole Sodium 40 mg 11/16/24 09:00 11/17/24 09:04 Pantoprazole 40 Mg Tablet PO 12/16/24 08:59 40 mg DAILY MIGUELITO Administration Polyethylene Glycol 17 gm 11/16/24 18:32 11/16/24 18:52 Polyethylene Glycol 3350 17 Gm Powd.Pack PO 17 gm QAM PRN Administration Constipation Sodium Chloride 10 ml 11/16/24 14:00 11/17/24 20:43 Central Line Flush IV PUSH 10 ml Q8HR MIGUELITO Administration Sodium Chloride 10 ml 11/16/24 14:00 11/18/24 06:21 Central Line Flush IV PUSH 10 ml Q8HR MIGUELITO Administration Radiology Results: ITS Impressions Chest CTA 11/15/24 19:34 IMPRESSION: No pulmonary embolus. No thoracic aortic dissection. 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 Interval development of a large left-sided pleural effusion, likely contributing to patient's hypoxia as this is an interval change from 08/02/2024 examination. Thoracentesis Ultrasound 11/16/24 16:06 IMPRESSION: 1. Successful ultrasound-guided thoracentesis yielding 1100 mL of dark reddish fluid. Chest X-Ray 11/17/24 06:56 IMPRESSION: 1. Opacities in the bilateral mid and lower lung zones, left greater than right which could represent atelectasis and/or pneumonia with some improvement in the left lower lung zone. 2. Small left pleural effusion. Labs Labs: Laboratory Results - last 24 hr 11/17/24 11/17/24 11/17/24 11:58 13:52 17:02 WBC RBC Hgb Hct MCV MCH MCHC RDW Plt Count MPV Immature Gran % (Auto) Neut % (Auto) Lymph % (Auto) Amelia % (Auto) Eos % (Auto) Baso % (Auto) Lymph # (Auto) Amelia # (Auto) Eos # (Auto) Baso # (Auto) Abs Immat Gran (auto) Absolute Neuts (auto) Absolute Nucleated RBC Band Neutrophils % Nucleated RBC % Platelet Estimate Hypochromasia Anisocytosis Ovalocytes Schistocytes ESR Sodium Potassium Chloride Carbon Dioxide Anion Gap BUN Creatinine Estim Creat Clear Calc Estimated GFR Glucose POC Capillary Glucose 136 H 129 H Calcium Magnesium Total Bilirubin AST ALT Alkaline Phosphatase Total Creatine Kinase C-Reactive Protein Total Protein Albumin TSH (Reflex) Urine Color Tati Urine Appearance Cloudy H Urine pH 6.0 Ur Specific [place] 1.019 Urine Protein 1+ H Urine Glucose (UA) Negative Urine Ketones Negative Ur Blood (Man) 3+ H Urine Nitrate Negative Urine Bilirubin Negative Urine Urobilinogen 1.0 Ur Leukocyte Esterase Trace H Urine RBC >100 H Urine WBC 0-5 Ur Squamous Epith Cells None seen Urine Bacteria None seen Urine Casts 0-2 U Random Total Protein Urine Creatinine Protein/Creat Ratio 2 Vancomycin Trough 11/17/24 11/18/24 11/18/24 20:40 02:41 02:42 WBC RBC Hgb Hct MCV MCH MCHC RDW Plt Count MPV Immature Gran % (Auto) Neut % (Auto) Lymph % (Auto) Amelia % (Auto) Eos % (Auto) Baso % (Auto) Lymph # (Auto) Amelia # (Auto) Eos # (Auto) Baso # (Auto) Abs Immat Gran (auto) Absolute Neuts (auto) Absolute Nucleated RBC Band Neutrophils % Nucleated RBC % Platelet Estimate Hypochromasia Anisocytosis Ovalocytes Schistocytes ESR Sodium Potassium Chloride Carbon Dioxide Anion Gap BUN Creatinine Estim Creat Clear Calc Estimated GFR Glucose POC Capillary Glucose 168 H Calcium Magnesium Total Bilirubin AST ALT Alkaline Phosphatase Total Creatine Kinase C-Reactive Protein Total Protein Albumin TSH (Reflex) Urine Color Urine Appearance Urine pH Ur Specific [place] Urine Protein Urine Glucose (UA) Urine Ketones Ur Blood (Man) Urine Nitrate Urine Bilirubin Urine Urobilinogen Ur Leukocyte Esterase Urine RBC Urine WBC Ur Squamous Epith Cells Urine Bacteria Urine Casts U Random Total Protein 96 Urine Creatinine 51.3 Protein/Creat Ratio 2 Vancomycin Trough 11/18/24 11/18/24 11/18/24 02:42 06:40 06:41 WBC 10.2 H RBC 3.02 L Hgb 7.1 L Hct 25.2 L MCV 83.4 MCH 23.5 L MCHC 28.2 L RDW 22.5 H Plt Count 272 MPV 9.2 Immature Gran % (Auto) 4.6 H Neut % (Auto) 84.8 H Lymph % (Auto) 5.3 L Amelia % (Auto) 5.1 Eos % (Auto) 0.1 Baso % (Auto) 0.1 L Lymph # (Auto) 0.54 L Amelia # (Auto) 0.5 Eos # (Auto) 0.0 Baso # (Auto) 0.0 Abs Immat Gran (auto) 0.47 H Absolute Neuts (auto) 8.6 H Absolute Nucleated RBC 0.030 H Band Neutrophils % Not Reportable Nucleated RBC % 0.3 H Platelet Estimate Adequate Hypochromasia 2+ Anisocytosis 2+ Ovalocytes 2+ Schistocytes None seen ESR > 140 H Sodium 141 Potassium 3.2 L Chloride 108 H Carbon Dioxide 28 Anion Gap 5 BUN 11 Creatinine 0.64 L Estim Creat Clear Calc 76 Estimated GFR > 60 Glucose 85 POC Capillary Glucose Calcium 7.3 L Magnesium 2.3 Total Bilirubin 0.4 AST 44 ALT 47 Alkaline Phosphatase 85 Total Creatine Kinase < 20 L C-Reactive Protein 8.9 H Total Protein 5.0 L Albumin 2.4 L TSH (Reflex) 1.790 Urine Color Urine Appearance Urine pH Ur Specific [place] Urine Protein Urine Glucose (UA) Urine Ketones Ur Blood (Man) Urine Nitrate Urine Bilirubin Urine Urobilinogen Ur Leukocyte Esterase Urine RBC Urine WBC Ur Squamous Epith Cells Urine Bacteria Urine Casts U Random Total Protein 94 Urine Creatinine 51.1 Protein/Creat Ratio 2 1.88 H Vancomycin Trough 21.5 H 11/18/24 07:47 WBC RBC Hgb Hct MCV MCH MCHC RDW Plt Count MPV Immature Gran % (Auto) Neut % (Auto) Lymph % (Auto) Amelia % (Auto) Eos % (Auto) Baso % (Auto) Lymph # (Auto) Amelia # (Auto) Eos # (Auto) Baso # (Auto) Abs Immat Gran (auto) Absolute Neuts (auto) Absolute Nucleated RBC Band Neutrophils % Nucleated RBC % Platelet Estimate Hypochromasia Anisocytosis Ovalocytes Schistocytes ESR Sodium Potassium Chloride Carbon Dioxide Anion Gap BUN Creatinine Estim Creat Clear Calc Estimated GFR Glucose POC Capillary Glucose 79 Calcium Magnesium Total Bilirubin AST ALT Alkaline Phosphatase Total Creatine Kinase C-Reactive Protein Total Protein Albumin TSH (Reflex) Urine Color Urine Appearance Urine pH Ur Specific [place] Urine Protein Urine Glucose (UA) Urine Ketones Ur Blood (Man) Urine Nitrate Urine Bilirubin Urine Urobilinogen Ur Leukocyte Esterase Urine RBC Urine WBC Ur Squamous Epith Cells Urine Bacteria Urine Casts U Random Total Protein Urine Creatinine Protein/Creat Ratio 2 Vancomycin Trough Quality VTE Prophylaxis VTE prophylaxis: mechanical ordered (SCDs)
[2024-11-18 08:38] LABS: Phosphorus 2.3 mg/dL (2.5-4.5)
[2024-11-18] MEDS: CYANOCOBALAMIN 250 MCG TABLET PO (08:38)
[2024-11-18] MEDS: PANTOPRAZOLE 40 MG TABLET PO (08:38)
[2024-11-18] MEDS: levETIRAcetam 500 MG TABLET PO ×2 (08:38→21:02)
[2024-11-18] MEDS: FERROUS SULFATE 325 MG TABLET DR PO (08:38)
[2024-11-18] MEDS: dexAMETHasone 4 MG TABLET PO (08:38)
[2024-11-18] MEDS: POTASSIUM CHLORIDE 20 MEQ ER TABLET PO (08:38)
[2024-11-18] MEDS: CALCIUM GLUC 1,000 MG/NS 50 ML 1,000 MG/50 ML BAG 100 MG IVPB (09:27)
--- NOTE | 2024-11-18 10:56 | P.CONUR_ITS ---
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 We will not plan intervention unless it recurs Urology Consult Note HPI Date Seen: 11/18/24 Requesting Physician: Smith Silva PA-C Primary Care Provider: Chaka Colin MD Consult Narrative Narrative: Almas Elias is a 78 year old male who is very well known to me with a history of high risk prostate cancer diagnosed in 2020. Initially underwent pelvic radiation with 2 years of androgen deprivation. He has since developed widely metastatic disease involving both his liver and lung. He is currently also undergoing gamma knife radiation to brain metastases. His care is provided both by Dr. Quarles and other oncologist at [facility] [place]. He is admitted with shortness of breath and found to have a large left pleural effusion and has since undergone thoracentesis. The time of admission he had hematuria as he has had in the past, presumably secondary to radiation cystitis. Review of Systems 2 Review of Systems: All systems reviewed & are unremarkable except as noted in HPI and below PMFSH Past Medical History Medical History (Updated 11/17/24 @ 11:06 by Smith Silva PA-C) Metastatic adenocarcinoma to brain Insomnia Hyponatremia Secondary malignant neoplasm of bone Anemia Prediabetes Family history of melanoma History of colonic polyps Basal cell carcinoma Prostate cancer (~2020) Other and unspecified hyperlipidemia Osteoarthritis of knee, unspecified Surgical History Surgical History (Updated 11/15/24 @ 22:25 by Loyda Thompson DO) Status post cataract extraction of both eyes with insertion of intraocular lens (2023) Port-A-Cath in place (09/17/24) History of craniotomy (10/20/24) left frontal lobe lesion resection History of tonsillectomy Family History Family History Father Acute myocardial infarction Heart disease Mother Breast cancer Sibling Melanoma Social History Social History (Updated 11/16/24 @ 08:36 by Loyda Thompson DO) Social History: 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 He lives with his of 58 years. They raised 3 sons. Patient has smoked 1 pack of cigarettes per day for 35-40 years but quit smoking in 1999. He used to drink 2 alcoholic beverages a night but has cut back since his recent illness. He denies history of illicit substance use. He has been ambulating with a walker since he was discharged from the hospital in October at following his craniotomy. Code status: Full code (the patient initially told me that he did not want to be intubated but when discussing cardiac resuscitation he stated that he would defer all decisions to his son Chente. He stated that Chente would not do something that was not necessary any wants him to make the his decisions for him. Smoking packs per day: 1 Smoking cigarettes per day: 20.0 Years smoked: 40 Smoking pack-years: 40.00 Smoking status: Former smoker Tobacco type: cigarettes Second hand tobacco smoke exposure: No Smoking end date: 07/11/99 Alcohol intake: current Drinks per week: 21 Alcohol use details: Liquor Substance use: never Substance use type: does not use Do You Feel Safe in your Home?: Yes Lack of Transportation: No Lack of Food: Never True Current Housing: I Have Housing Concerned About Future Housing: No Difficulty Paying Gas/Electric Bills: No Difficulty Paying for Meds: No Currently Unemployed: No Education: High School Diploma/GED Difficulty w/ Childcare or Family Care: No Living arrangements: with family Additional living arrangements comments: Occupation/Education: retired Gender identity (if verbalized by the patient): Male Sexual Orientation (if Verbalized by the Patient): Straight or Heterosexual Spiritual care concerns: No Agree to blood products: Yes Meds Home Medications and Allergies Home Medications Medication Instructions Recorded Confirmed Type ergocalciferol (vitamin D2) 1,250 1,250 mcg PO WEEKLY #12 caps 08/02/24 11/15/24 Rx mcg (50,000 unit) capsule simvastatin 40 mg tablet 40 mg PO QHS #90 tabs 10/10/24 11/15/24 Rx cyanocobalamin (vitamin B-12) 250 250 mcg PO DAILY 11/05/24 11/15/24 History mcg tablet ferrous sulfate 325 mg (65 mg 325 mg PO DAILY 11/05/24 11/15/24 History iron) tablet lidocaine-prilocaine 2.5 %-2.5 % 1 applic topical ONCE 11/05/24 11/15/24 History topical cream mirtazapine 7.5 mg tablet 7.5 mg PO QHS 11/05/24 11/16/24 History omeprazole magnesium 20 mg 20 mg PO DAILY 11/05/24 11/15/24 History tablet,delayed release ondansetron 8 mg disintegrating 8 mg PO ONCE 11/05/24 11/15/24 History tablet metformin 500 mg tablet,extended 500 mg PO QPM #100 tabs 11/07/24 11/15/24 Rx release 24 hr (Glucophage XR) dexamethasone 4 mg tablet 4 mg PO DAILY 11/15/24 11/15/24 History escitalopram oxalate 5 mg tablet 5 mg PO DAILY #90 tabs 11/16/24 Rx (Lexapro) Allergies Allergy/AdvReac Type Severity Reaction Status Date / Time No Known Allergies Allergy Verified 11/05/24 08:23 Vital Signs Vital Signs - 24 hr 11/17/24 14:11 11/17/24 14:19 11/17/24 15:21 Temperature 97.7 F Pulse Rate 83 87 87 Respiratory Rate 16 16 18 Blood Pressure 109/59 L Pulse Oximetry 91 Oxygen Delivery Oxygen Flow Rate 11/17/24 19:57 11/17/24 20:07 11/17/24 22:00 Temperature 97 F L Pulse Rate 88 88 92 Respiratory Rate 16 16 18 Blood Pressure 112/53 L Pulse Oximetry 92 Oxygen Delivery Oxygen Flow Rate 11/17/24 22:30 11/18/24 06:00 11/18/24 08:45 Temperature 96.8 F L Pulse Rate 91 Respiratory Rate 18 Blood Pressure 116/55 L Pulse Oximetry 96 95 91 Oxygen Delivery Nasal Cannula Nasal Cannula Oxygen Flow Rate 2 2 11/18/24 08:54 11/18/24 08:54 11/18/24 09:02 Temperature Pulse Rate 88 85 Respiratory Rate 20 20 Blood Pressure Pulse Oximetry 94 Oxygen Delivery Nasal Cannula Oxygen Flow Rate 2 Exam 2 Const: General: no acute distress Resp: Effort & Inspection: normal respiratory effort GI: Inspection: non-distended GI Palp: No abdominal tenderness and No Guarding due to palpation present (GI) Auscultation: normal bowel sounds Results Labs 11/18/24 06:40 11/18/24 06:40 Labs: Short CBC 11/18/24 Range/Units 06:40 WBC 10.2 H (4.5-10.0) K/mm3 Hgb 7.1 L (14.0-18.0) g/dL Hct 25.2 L (42.0-52.0) % Plt Count 272 (150-375) k/mm3 BMP 11/18/24 06:40 Sodium 141 Potassium 3.2 L Chloride 108 H Carbon Dioxide 28 BUN 11 Creatinine 0.64 L Glucose 85 Calcium 7.3 L Cardiac Enzymes 11/18/24 Range/Units 06:40 Total Creatine Kinase < 20 L (55-170) U/L Liver Function 11/18/24 Range/Units 06:40 Total Bilirubin 0.4 (0.2-1.3) mg/dL AST 44 (17-59) U/L ALT 47 (6-50) U/L Alkaline Phosphatase 85 (38-126) U/L Albumin 2.4 L (3.5-5.1) g/dL Urine 11/17/24 Range/Units 13:52 Urine Color Tati (Yellow) Urine Appearance Cloudy H (Clear) Urine pH 6.0 (5.0-9.0) Ur Specific [place] 1.019 (1.001-1.035) Urine Protein 1+ H (Negative) mg/dL Urine Glucose (UA) Negative (Negative) mg/dL
[2024-11-18 11:48] LABS: Glucose Point of Care 121 mg/dl (65-105)
[2024-11-18] MEDS: levoFLOXacin 750 MG/D5W 150 ML 750 MG/150 ML BAG 100 MG IVPB (14:53)
[2024-11-18 16:09] LABS: Pneumococcal Antigen Urine NOT DETECTED
[2024-11-18 16:52] LABS: Glucose Point of Care 149 mg/dl (65-105)
[2024-11-18] MEDS: metFORMIN HCL XR 500 MG TAB.SR.24H PO (17:28)
[2024-11-18] MEDS: MIRTAZAPINE 7.5 MG TABLET PO (21:02)
[2024-11-18 21:41] LABS: Glucose Point of Care 137 mg/dl (65-105)
[2024-11-18 21:48] LABS: Legionella pneumophila Ag Ur NOT DETECTED
[2024-11-18] MEDS: VANCOMYCIN 1,250 MG/NS 250 ML 1,250 MG/250 ML BAG 250 MG IVPB (23:53)
[2024-11-19] VITALS (20 sets, daily range): BP systolic 103–125; BP diastolic 53–81; PULSE 75–100; RESP 16–20; TEMP 35.8–36.7; O2SAT 86–100
--- NOTE | 2024-11-19 06:23 | P.PNUR_ITS ---
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: Onset Date: ~07/2024 Code(s): C61 - Malignant neoplasm of prostate; C78.7 - Secondary malignant neoplasm of liver and intrahepatic bile duct Status: Acute Assessment and Plan: * Transient hematuria likely due to radiation cystitis * Given the fact hematuria has resolved, I have no plans for intervention currently Subjective Subjective Date/Time Seen: 11/19/24 06:23 Interval history: Comfortable, no further hematuria Review of Systems Cardiovascular: Cardiovascular: Denies chest pain, Denies lightheadedness, Denies palpitations and Denies dyspnea Respiratory: Respiratory: Denies dyspnea Gastrointestinal: Gastrointestinal: Denies diarrhea, Denies nausea and Denies vomiting Genitourinary: Genitourinary: Denies hematuria and Denies dysuria Endocrine: Endocrine: Denies palpitations Exam Const: General: no acute distress Resp: Effort & Inspection: normal respiratory effort GI: Inspection: non-distended GI Palp: No abdominal tenderness and No Guarding due to palpation present (GI) Auscultation: normal bowel sounds Objective Data Vital Signs Vital Signs: Vital Signs - 24 hr 11/18/24 08:45 11/18/24 08:54 11/18/24 08:54 Temperature Pulse Rate 88 Respiratory Rate 20 Blood Pressure Pulse Oximetry 91 94 Oxygen Delivery Nasal Cannula Nasal Cannula Oxygen Flow Rate 2 2 11/18/24 09:02 11/18/24 13:36 11/18/24 13:48 Temperature Pulse Rate 85 81 86 Respiratory Rate 20 20 20 Blood Pressure Pulse Oximetry Oxygen Delivery Oxygen Flow Rate 11/18/24 14:00 11/18/24 20:55 11/18/24 20:59 Temperature 96.9 F L Pulse Rate 85 81 Respiratory Rate 16 18 Blood Pressure 123/65 Pulse Oximetry 92 95 Oxygen Delivery Nasal Cannula Oxygen Flow Rate 2 11/18/24 21:09 11/19/24 06:00 Temperature 97.3 F L 97.3 F L Pulse Rate 80 75 Respiratory Rate 18 16 Blood Pressure 119/76 103/53 L Pulse Oximetry 94 95 Oxygen Delivery Oxygen Flow Rate Intake/Output Intake/Output: Intake & Output 11/16/24 11/17/24 11/18/24 11/19/24 23:59 23:59 23:59 23:59 Intake Total 1620 2280 1588 150 Output Total 1500 1050 500 Balance 120 1230 1088 150 Meds/Results Medications: Active Medications Generic Name Dose Route Start Last Admin Trade Name Freq PRN Reason Stop Dose Admin Acetaminophen 650 mg 11/15/24 22:40 11/16/24 21:01 Acetaminophen 325 Mg Tablet PO 650 mg Q4H PRN Administration Mild Pain (1-3) or Fever Albuterol/Ipratropium 3 ml 11/16/24 02:00 11/19/24 04:44 Ipratropium 0.5 Mg/Albuterol Sulfate 2.5 Mg Ampul.Neb 3 Ml INHALATION Not Given Q6HRT [facility] Calcium Carbonate 200 mg 11/15/24 22:40 Calcium Carbonate (Tums) 500 Mg (200 Mg Elemental) PO Q6H PRN Indigestion Cyanocobalamin 250 mcg 11/16/24 09:00 11/18/24 08:38 Cyanocobalamin 250 Mcg Tablet PO 250 mcg DAILY MIGUELITO Administration Dexamethasone 4 mg 11/16/24 09:00 11/18/24 08:38 Dexamethasone 4 Mg Tablet PO 4 mg DAILY MIGUELITO Administration Dextrose 12.5 gm 11/16/24 06:57 Dextrose 50% 25 Gm/50 Ml Syringe IV PUSH PRN PRN Hypoglycemia Protocol Diphenhydramine HCl 25 mg 11/16/24 06:56 Diphenhydramine Hcl Cap 25 Mg Capsule PO HS PRN Insomnia Ferrous Sulfate 325 mg 11/16/24 08:00 11/18/24 08:38 Ferrous Sulfate [address] PO 325 mg DAILY@0800 MIGUELITO Administration Glucagon 1 mg 11/16/24 06:57 Glucagon For Inj 1 Mg Vial IM PRN PRN Hypoglycemia Protocol Glucose 15 gm 11/16/24 06:57 Glucose Oral Gel 15 Gm Of Glucse In 37.5 Gm Tube PO PRN PRN Hypoglycemia Protocol Heparin Sodium (Beef Lung) 50 units 11/17/24 09:00 11/18/24 08:38 Heparin Flush 50 Units/5 Ml Syringe IV PUSH 50 units QAM MIGUELITO Administration Heparin Sodium (Beef Lung) 50 units 11/16/24 10:54 Heparin Flush 50 Units/5 Ml Syringe IV PUSH PRN PRN after intermittent infusion Heparin Sodium (Beef Lung) 50 units 11/16/24 10:54 Heparin Flush 50 Units/5 Ml Syringe IV PUSH PRN PRN after blood draws Heparin Sodium (Porcine) 500 units 11/16/24 10:54 Heparin Sodium Lock Flush 500 Units/5 Ml Syringe IV PUSH PRN PRN see comments below Piperacillin Sod/Tazobactam Sod 4.5 gm in 100 mls @ 200 mls/hr 11/16/24 06:00 11/18/24 23:53 Zosyn 4.5 Gm/Ns 100 Ml IVPB 200 mls/hr Q6H MIGUELITO Administration Dextrose 1,000 mls @ 100 mls/hr 11/16/24 06:57 Dextrose 5% 1,000 Ml IVPB PRN PRN Hypoglycemia Protocol Levofloxacin/Dextrose 750 mg in 150 mls @ 100 mls/hr 11/16/24 12:30 11/18/24 16:22 Levaquin 750 Mg/D5w 150 Ml IVPB Infused Q24H MIGUELITO Infusion Vancomycin HCl 1,250 mg in 250 mls @ 166.667 mls/hr 11/18/24 12:00 11/18/24 23:53 Vancomycin 1,250 Mg/Ns 250 Ml IVPB 250 mls/hr Q12H MIGUELITO Administration Insulin Aspart 3 - 6 units 11/16/24 08:00 11/18/24 17:02 Insulin Aspart (*Bkc) 100 Units/Ml SUB-Q Not Given TIDWM MIGUELITO Protocol Insulin Aspart 1 - 3 units 11/16/24 21:00 11/18/24 21:25 Insulin Aspart (*Bkc) 100 Units/Ml SUB-Q Not Given HS MIGUELITO Protocol Levetiracetam 500 mg 11/16/24 09:00 11/18/24 21:02 Levetiracetam 500 Mg Tablet PO 500 mg Q12HR MIGUELITO Administration Metformin HCl 500 mg 11/16/24 18:00 11/18/24 17:28 Metformin Hcl Xr 500 Mg Tab.Sr.24h PO 500 mg QPM MIGUELITO Administration Mirtazapine 7.5 mg 11/16/24 21:00 11/18/24 21:02 Mirtazapine 7.5 Mg Tablet PO 7.5 mg QHS MIGUELITO Administration Ondansetron HCl 4 mg 11/15/24 22:40 Ondansetron Inj 4 Mg/2 Ml Vial IV PUSH Q6H PRN Nausea And Vomiting Pantoprazole Sodium 40 mg 11/16/24 09:00 11/18/24 08:38 Pantoprazole 40 Mg Tablet PO 12/16/24 08:59 40 mg DAILY MIGUELITO Administration Polyethylene Glycol 17 gm 11/16/24 18:32 11/16/24 18:52 Polyethylene Glycol 3350 17 Gm Powd.Pack PO 17 gm QAM PRN Administration Constipation Sodium Chloride 10 ml 11/16/24 14:00 11/18/24 21:26 Central Line Flush IV PUSH Not Given Q8HR MIGUELITO Radiology Results: ITS Impressions Chest CTA 11/15/24 19:34 IMPRESSION: No pulmonary embolus. No thoracic aortic dissection. 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 Interval development of a large left-sided pleural effusion, likely contributing to patient's hypoxia as this is an interval change from 08/02/2024 examination. Thoracentesis Ultrasound 11/16/24 16:06 IMPRESSION: 1. Successful ultrasound-guided thoracentesis yielding 1100 mL of dark reddish fluid. Chest X-Ray 11/18/24 13:20 Impression: 1: Bilateral airspace disease may represent edema or pneumonia. 2: Moderate left pleural effusion, possibly loculated. Labs Labs: Laboratory Results - last 24 hr 11/16/24 11/18/24 11/18/24 06:40 06:40 06:41 WBC 10.2 H RBC 3.02 L Hgb 7.1 L Hct 25.2 L MCV 83.4 MCH 23.5 L MCHC 28.2 L RDW 22.5 H Plt Count 272 MPV 9.2 Immature Gran % (Auto) 4.6 H Neut % (Auto) 84.8 H Lymph % (Auto) 5.3 L [place] % (Auto) 5.1 Eos % (Auto) 0.1 Baso % (Auto) 0.1 L Lymph # (Auto) 0.54 L [place] # (Auto) 0.5 Eos # (Auto) 0.0 Baso # (Auto) 0.0 Abs Immat Gran (auto) 0.47 H Absolute Neuts (auto) 8.6 H Absolute Nucleated RBC 0.030 H Band Neutrophils % Not Reportable Nucleated RBC % 0.3 H Platelet Estimate Adequate Hypochromasia 2+ Anisocytosis 2+ Ovalocytes 2+ Schistocytes None seen ESR > 140 H Sodium 141 Potassium 3.2 L Chloride 108 H Carbon Dioxide 28 Anion Gap 5 BUN 11 Creatinine 0.64 L Estim Creat Clear Calc 76 Estimated GFR > 60 Glucose 85 POC Capillary Glucose Calcium 7.3 L Phosphorus 2.3 L Magnesium 2.3 Total Bilirubin 0.4 AST 44 ALT 47 Alkaline Phosphatase 85 Total Creatine Kinase < 20 L C-Reactive Protein 8.9 H Total Protein 5.0 L Albumin 2.4 L TSH (Reflex) 1.790 Vancomycin Trough 21.5 H Ur L.pneumophila Ag Not detected Urine Pneumococcal Ag Not detected 11/18/24 11/18/24 11/18/24 07:47 11:38 16:50 WBC RBC Hgb Hct MCV MCH MCHC RDW Plt Count MPV Immature Gran % (Auto) Neut % (Auto) Lymph % (Auto) [place] % (Auto) Eos % (Auto) Baso % (Auto) Lymph # (Auto) [place] # (Auto) Eos # (Auto) Baso # (Auto) Abs Immat Gran (auto) Absolute Neuts (auto) Absolute Nucleated RBC Band Neutrophils % Nucleated RBC % Platelet Estimate Hypochromasia Anisocytosis Ovalocytes Schistocytes ESR Sodium Potassium Chloride Carbon Dioxide Anion Gap BUN Creatinine Estim Creat Clear Calc Estimated GFR Glucose POC Capillary Glucose 79 121 H 149 H Calcium Phosphorus Magnesium Total Bilirubin AST ALT Alkaline Phosphatase Total Creatine Kinase C-Reactive Protein Total Protein Albumin TSH (Reflex) Vancomycin Trough Ur L.pneumophila Ag Urine Pneumococcal Ag 11/18/24 21:33 WBC RBC Hgb Hct MCV MCH MCHC RDW Plt Count MPV Immature Gran % (Auto) Neut % (Auto) Lymph % (Auto) [place] % (Auto) Eos % (Auto) Baso % (Auto) Lymph # (Auto) [place] # (Auto) Eos # (Auto) Baso # (Auto) Abs Immat Gran (auto) Absolute Neuts (auto) Absolute Nucleated RBC Band Neutrophils % Nucleated RBC % Platelet Estimate Hypochromasia Anisocytosis Ovalocytes Schistocytes ESR Sodium Potassium Chloride Carbon Dioxide Anion Gap BUN Creatinine Estim Creat Clear Calc Estimated GFR Glucose POC Capillary Glucose 137 H Calcium Phosphorus Magnesium Total Bilirubin AST ALT Alkaline Phosphatase Total Creatine Kinase C-Reactive Protein Total Protein Albumin TSH (Reflex) Vancomycin Trough Ur L.pneumophila Ag Urine Pneumococcal Ag
[2024-11-19] MEDS: PIPERACILLIN/TAZ 4.5G/NS 100ML 4.5 GM/100 ML BAG IVPB (06:47)
[2024-11-19] MEDS: CENTRAL LINE FLUSH 10 ML IV PUSH ×3 (06:48→21:06)
[2024-11-19 07:48] LABS: Glucose Point of Care 79 mg/dl (65-105)
[2024-11-19 08:04] LABS: Basophils Percent Auto 0.1 % (0.2-1.2); Eosinophils Absolute Auto 0.1 K/mm3 (0-0.3); Eosinophils Percent Auto 0.7 % (0-4.4); Hematocrit 23.8 % (42.0-52.0); Immature Granulocyte Absolute 0.26 K/mm3 (0.00-0.031); Lymphocytes Absolute Auto 0.61 K/mm3 (0.9-3.2); Mean Corpuscular HGB Conc 28.2 g/dl (32-36); Mean Corpuscular Hemoglobin 23.3 pg (26-34); Mean Corpuscular Volume 82.9 fl (80-100); Mean Platelet Volume 8.8 fl (7.4-10.4); Monocytes Absolute Auto 0.5 K/mm3 (0.1-0.6); Monocytes Percent Auto 5.6 % (2.6-8.5); Neutrophils Absolute Auto 7.3 K/mm3 (1.3-6.7); Neutrophils Percent Auto 83.6 % (45.5-73.1); Platelet Count Result 244 k/mm3 (150-375); Red Blood Count 2.87 M/mm3 (4.6-6.20); Red Cell Distribution Width 22.9 % (11.5-14.5); White Blood Count 8.7 K/mm3 (4.5-10.0)
[2024-11-19 08:10] LABS: Hemoglobin 6.7 g/dL (14.0-18.0)
[2024-11-19] MEDS: IPRATROPIUM 0.5 MG/ALBUTEROL SULFATE 2.5 MG AMPUL.NEB 3 ML INHALATION ×3 (08:13→20:55)
[2024-11-19 08:14] LABS: Alanine Aminotransferase 35 U/L (6-50); Albumin Level 2.3 g/dL (3.5-5.1); Alkaline Phosphatase 77 U/L (38-126); Anion Gap 1 mmol/L (4-12); Aspartate Amino Transferase 30 U/L (17-59); Bilirubin,Total 0.5 mg/dL (0.2-1.3); Blood Urea Nitrogen 13 mg/dL (9-20); Calcium 7.3 mg/dL (8.4-10.2); Carbon Dioxide 30 mmol/L (22-30); Chloride 109 mmol/L (98-107); Estimated CRCL calculation 50 ml/min; Estimated Glomerular Filt Rate > 60; Glucose 76 mg/dL (65-110); Potassium 3.3 mmol/L (3.4-5.0); Sodium 140 mmol/L (137-145)
--- NOTE | 2024-11-19 08:21 | P.PNIM_ITS ---
Progress Note: A&P Assessment and Plan (1) Pleural effusion, left: Code(s): J90 - Pleural effusion, not elsewhere classified Status: Acute Assessment and Plan: * CXR: Redemonstration of a large left-sided pleural effusion with adjacent consolidation. Right hilar infiltrate is also suspected. * Chest CTA: No PE, dissection, Findings a bilaterally consistent with patient's known malignancy. Interval development of a large left-sided pleural effusion, likely contributing to patient's hypoxia * Pulmonology following * Pleural fluid: pH >7.5, Ple[place] [id number], bloody appearance, albumin+LDH pending * Broad spectrum antibiotics: Zosyn, Vanc, Levaquin * DuoNeb q6hrs, Decadron 4mg PO daily * Thoracentesis on 11/16 * Repeat CXR on 11/17 shows improving effusion * Repeat CXR on 11/18: Bilateral airspace disease may represent edema or pneumonia, moderate left pleural effusion, possibly loculated * Spoke with Dr. Izquierdo again, okay with discharge from his stand point pending Home O2 eval * O2 eval by RT today (2) Pneumonia: Qualifiers: Laterality: left Lung location: unspecified part of lung Pneumonia type: due to unspecified organism Qualified Code(s): J18.9 - Pneumonia, unspecified organism Code(s): J18.9 - Pneumonia, unspecified organism Status: Acute Assessment and Plan: CXR: Redemonstration of a large left-sided pleural effusion with adjacent consolidation. Right hilar infiltrate is also suspected. - Risk Factors: Recent hospitalization, possible aspiration pneumonia, pneumonia due to immunocompromised state - started on tx: Zosyn, Vancomycin, Levofloxacin - Viral PCR: pending - Consider ordering legionella, mycoplasma and pneumococcal - 2L NC for O2 supplementation, wean throughout the day - Monitor vital signs, I&Os, neuro status and patient is a fall risk - Follow WBC, serum electrolytes, temperature curves and cultures - Upon discharge will continue antibiotic coverage - no changes, continues to deny shortness of breath at rest, no leukocytosis (3) Acute hypoxic respiratory failure: Code(s): J96.01 - Acute respiratory failure with hypoxia Status: Acute Assessment and Plan: - Symptoms: Hypoxia - SpO2: 97 % on 2L NC - Oxygen supplementation: 2L NC - Suspected cause: Pleural effusion, left lung - ABG: pH 7.486, pCO2 30.6, pO2 48.6, O2 saturation 87.8, oxyhemoglobin 84.2, total hemoglobin 7.9 - EKG: NSR - Chest XR:Redemonstration of a large left-sided pleural effusion with adjacent consolidation - Thoracentesis 11/16 - Wean O2 as appropriate - See Problem 1 (4) Sepsis: Qualifiers: Acute respiratory failure type: with hypoxia Sepsis acute organ dysfunction status: with acute organ dysfunction Sepsis type: sepsis due to unspecified organism Severe sepsis acute organ dysfunction type: acute respiratory failure Severe sepsis shock status: without septic shock Qualified Code(s): A41.9 - Sepsis, unspecified organism; R65.20 - Severe sepsis without septic shock; J96.01 - Acute respiratory failure with hypoxia Code(s): A41.9 - Sepsis, unspecified organism Status: Acute Assessment and Plan: Meets SIRS criteria: Hypoxia, tachycardia - lactic acid: 1.5 - suspected source: Pneumonia, malignancy - blood cultures drawn on 11/15 - CXR: Redemonstration of a large left-sided pleural effusion with adjacent consolidation. Right hilar infiltrate is also suspected. - Prelminary BCs negative for growth - Leukocytosis improving - Sepsis unlikely (5) Metastatic adenocarcinoma to brain: Code(s): C79.31 - Secondary malignant neoplasm of brain Status: Acute Assessment and Plan: * With prostate cancer being primary with metastases also to the liver and lung. 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 * No plan for intervention unless it recurs * Hematuria resolved (7) Elevated troponin: Code(s): R79.89 - Other specified abnormal findings of blood chemistry Status: Acute Assessment and Plan: * Initial trop 0.039, repeats down trending * likely due to demand ischemia * EKG: NSR * Acute occlusive myocardial event is unlikely * continues to deny chest pain, physical exam benign (8) Anemia: Code(s): D64.9 - Anemia, unspecified Status: Acute Assessment and Plan: - Hgb, upon admission 8.1 - add iron, TIBC, ferritin, B12, folic acid, and TSH - transfuse if <7 - trend H&H - 11/19, Hgb 6.7 - Will order 1 unit PRBC, reorder H&H - Keep monitoring Time Spent With Patient Time: - Subjective Date/time seen: 11/19/24 08:21 Interval history: 78-year-old male with a past medical history of 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 ER reported that the patient was evaluated by his home health nurse yesterday and his oxygen saturations were in the mid 70s. 11/19/2024 Patient examined sitting at bedside. Denies any chest pain, shortness of breath, nausea/vomiting, or abdominal pain at this time. Continues to require 2 L nasal cannula for O2 supplementation. Respiratory care to assess home O2 evaluation. CBC show hemoglobin 6.7, to transfuse 1 unit PRBC. Denies any dizziness or lightheadedness. Calcium continues to be low, will continue supplement. Review of Systems Review of Systems: 12 systems were reviewed with pertinent positives and negatives per HPI. Except as documented in the HPI, all other systems were reviewed and are negative. He reports that he does snore but does not have known history of sleep apnea. Exam Narrative: Gen - ill appearing male in no acute respiratory distress who is nontoxic- appearing lying semi recumbent in bed HEENT - normocephalic. Atraumatic. Nares patent. Moist mucous membranes. Tongue was midline. Palate myrna symmetrically. No facial asymmetry. Neck - neck was supple. No dominant adenopathy, thyromegaly or masses. Chest - Respiratory effort normal. Some wheezing in right lower lung, decrease breath sounds in lower left lung and crackles in middle lobe, but improving CV - heart was regular rate and rhythm. S1-S2. No murmurs gallops or rubs. Abd - abdomen was soft. Nontender. Nondistended. Positive bowel sounds. Ext - no clubbing, cyanosis or edema. 2+ DP pulses bilaterally. Neuro - patient is alert and oriented x4. Speech is clear. Psych - normal mood and affect. Patient is pleasant and cooperative. Skin - warm and dry. No rashes noted. Const: Other: Acute on chronic ill-appearing, elderly, debilitated, no overt distress HENMT: Other: Craniotomy scar over the top of the head extending to the right frontal scalp appears to be well healed with some remaining scab formation, Mucous membranes are tacky, no oral pharyngeal erythema, head is normocephalic atraumatic, nasal cannula in place Eyes: Other: Pupils are equal and reactive, positive conjunctival pallor, no scleral icterus Neck: Other: No JVD, no overt lymphadenopathy trachea midline Resp: Other: Diffuse wheezing bilateral anterior and posterior lung pinon, conversational tachypnea Cardio: Other: Regular rate, regular rhythm, 2+ bilateral radial pedal pulses GI: Other: Soft, nontender, nondistended, positive bowel sounds : Other: Continent of urine Back/Spine/Pelvis: Other: Mild thoracic kyphosis Skin: Other: Generalized pallor, non jaundice, warm to touch Neuro: Other: Alert orient x4, speech is clear, no facial asymmetry, no localizing neurologic deficits noted during the course of conversation Extrem: Other: No clubbing, cyanosis or edema, moves all extremities equally, generalized muscle wasting Psych: Other: Appropriate mood and affect, pleasant and cooperative, judgment and insight intact Objective Data Vital Signs Vital Signs: Vital Signs - 24 hr 11/18/24 08:45 11/18/24 08:54 11/18/24 08:54 Temperature Pulse Rate 88 Respiratory Rate 20 Blood Pressure Pulse Oximetry 91 94 Oxygen Delivery Nasal Cannula Nasal Cannula Oxygen Flow Rate 2 2 Fraction of Inspired Oxygen 11/18/24 09:02 11/18/24 13:36 11/18/24 13:48 Temperature Pulse Rate 85 81 86 Respiratory Rate 20 20 20 Blood Pressure Pulse Oximetry Oxygen Delivery Oxygen Flow Rate Fraction of Inspired Oxygen 11/18/24 14:00 11/18/24 20:55 11/18/24 20:59 Temperature 96.9 F L Pulse Rate 85 81 Respiratory Rate 16 18 Blood Pressure 123/65 Pulse Oximetry 92 95 Oxygen Delivery Nasal Cannula Oxygen Flow Rate 2 Fraction of Inspired Oxygen 11/18/24 21:09 11/19/24 06:00 11/19/24 08:13 Temperature 97.3 F L 97.3 F L Pulse Rate 80 75 Respiratory Rate 18 16 Blood Pressure 119/76 103/53 L Pulse Oximetry 94 95 93 Oxygen Delivery Nasal Cannula Oxygen Flow Rate 2 Fraction of Inspired Oxygen 28 11/19/24 08:13 Temperature Pulse Rate 83 Respiratory Rate 20 Blood Pressure Pulse Oximetry Oxygen Delivery Oxygen Flow Rate Fraction of Inspired Oxygen Intake/Output Intake/Output: Intake & Output 11/16/24 11/17/24 11/18/24 11/19/24 23:59 23:59 23:59 23:59 Intake Total 1620 2280 1588 250 Output Total 1500 1050 500 Balance 120 1230 1088 250 Meds/Results Medications: Active Medications Generic Name Dose Route Start Last Admin Trade Name Freq PRN Reason Stop Dose Admin Acetaminophen 650 mg 11/15/24 22:40 11/16/24 21:01 Acetaminophen 325 Mg Tablet PO 650 mg Q4H PRN Administration Mild Pain (1-3) or Fever Albuterol/Ipratropium 3 ml 11/16/24 02:00 11/19/24 08:13 Ipratropium 0.5 Mg/Albuterol Sulfate 2.5 Mg Ampul.Neb 3 Ml INHALATION 3 ml Q6HRT MIGUELITO Administration Calcium Carbonate 200 mg 11/15/24 22:40 Calcium Carbonate (Tums) 500 Mg (200 Mg Elemental) PO Q6H PRN Indigestion Cyanocobalamin 250 mcg 11/16/24 09:00 11/18/24 08:38 Cyanocobalamin 250 Mcg Tablet PO 250 mcg DAILY MIGUELITO Administration Dexamethasone 4 mg 11/16/24 09:00 11/18/24 08:38 Dexamethasone 4 Mg Tablet PO 4 mg DAILY MIGUELITO Administration Dextrose 12.5 gm 11/16/24 06:57 Dextrose 50% 25 Gm/50 Ml Syringe IV PUSH PRN PRN Hypoglycemia Protocol Diphenhydramine HCl 25 mg 11/16/24 06:56 Diphenhydramine Hcl Cap 25 Mg Capsule PO HS PRN Insomnia Ferrous Sulfate 325 mg 11/16/24 08:00 11/18/24 08:38 Ferrous Sulfate [address] PO 325 mg DAILY@0800 MIGUELITO Administration Glucagon 1 mg 11/16/24 06:57 Glucagon For Inj 1 Mg Vial IM PRN PRN Hypoglycemia Protocol Glucose 15 gm 11/16/24 06:57 Glucose Oral Gel 15 Gm Of Glucse In 37.5 Gm Tube PO PRN PRN Hypoglycemia Protocol Heparin Sodium (Beef Lung) 50 units 11/17/24 09:00 11/19/24 07:52 Heparin Flush 50 Units/5 Ml Syringe IV PUSH 50 units QAM MIGUELITO Administration Heparin Sodium (Beef Lung) 50 units 11/16/24 10:54 Heparin Flush 50 Units/5 Ml Syringe IV PUSH PRN PRN after intermittent infusion Heparin Sodium (Beef Lung) 50 units 11/16/24 10:54 Heparin Flush 50 Units/5 Ml Syringe IV PUSH PRN PRN after blood draws Heparin Sodium (Porcine) 500 units 11/16/24 10:54 Heparin Sodium Lock Flush 500 Units/5 Ml Syringe IV PUSH PRN PRN see comments below Piperacillin Sod/Tazobactam Sod 4.5 gm in 100 mls @ 200 mls/hr 11/16/24 06:00 11/19/24 06:47 Zosyn 4.5 Gm/Ns 100 Ml IVPB 200 mls/hr Q6H MIGUELITO Administration Dextrose 1,000 mls @ 100 mls/hr 11/16/24 06:57 Dextrose 5% 1,000 Ml IVPB PRN PRN Hypoglycemia Protocol Levofloxacin/Dextrose 750 mg in 150 mls @ 100 mls/hr 11/16/24 12:30 11/18/24 16:22 Levaquin 750 Mg/D5w 150 Ml IVPB Infused Q24H MIGUELITO Infusion Vancomycin HCl 1,250 mg in 250 mls @ 166.667 mls/hr 11/18/24 12:00 11/18/24 23:53 Vancomycin 1,250 Mg/Ns 250 Ml IVPB 250 mls/hr Q12H MIGUELITO Administration Sodium Chloride 250 mls @ 30 mls/hr 11/19/24 08:14 Normal Saline Iv IV CONT 11/19/24 16:33 .Q8H20M STA Insulin Aspart 3 - 6 units 11/16/24 08:00 11/19/24 07:57 Insulin Aspart (*Bkc) 100 Units/Ml SUB-Q Not Given TIDWM MIGUELITO Protocol Insulin Aspart 1 - 3 units 11/16/24 21:00 11/18/24 21:25 Insulin Aspart (*Bkc) 100 Units/Ml SUB-Q Not Given HS MIGUELITO Protocol Levetiracetam 500 mg 11/16/24 09:00 11/18/24 21:02 Levetiracetam 500 Mg Tablet PO 500 mg Q12HR MIGUELITO Administration Metformin HCl 500 mg 11/16/24 18:00 11/18/24 17:28 Metformin Hcl Xr 500 Mg Tab.Sr.24h PO 500 mg QPM MIGUELITO Administration Mirtazapine 7.5 mg 11/16/24 21:00 11/18/24 21:02 Mirtazapine 7.5 Mg Tablet PO 7.5 mg QHS MIGUELITO Administration Ondansetron HCl 4 mg 11/15/24 22:40 Ondansetron Inj 4 Mg/2 Ml Vial IV PUSH Q6H PRN Nausea And Vomiting Pantoprazole Sodium 40 mg 11/16/24 09:00 11/18/24 08:38 Pantoprazole 40 Mg Tablet PO 12/16/24 08:59 40 mg DAILY MIGUELITO Administration Polyethylene Glycol 17 gm 11/16/24 18:32 11/16/24 18:52 Polyethylene Glycol 3350 17 Gm Powd.Pack PO 17 gm QAM PRN Administration Constipation Sodium Chloride 10 ml 11/16/24 14:00 11/19/24 06:48 Central Line Flush IV PUSH 10 ml Q8HR MIGUELITO Administration Radiology Results: ITS Impressions Chest CTA 11/15/24 19:34 IMPRESSION: No pulmonary embolus. No thoracic aortic dissection. 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 Interval development of a large left-sided pleural effusion, likely contributing to patient's hypoxia as this is an interval change from 08/02/2024 examination. Thoracentesis Ultrasound 11/16/24 16:06 IMPRESSION: 1. Successful ultrasound-guided thoracentesis yielding 1100 mL of dark reddish fluid. Chest X-Ray 11/18/24 13:20 Impression: 1: Bilateral airspace disease may represent edema or pneumonia. 2: Moderate left pleural effusion, possibly loculated. Labs Labs: Laboratory Results - last 24 hr 11/16/24 11/18/24 11/18/24 06:40 06:41 11:38 WBC RBC Hgb Hct MCV MCH MCHC RDW Plt Count MPV Immature Gran % (Auto) Neut % (Auto) Lymph % (Auto) [place] % (Auto) Eos % (Auto) Baso % (Auto) Lymph # (Auto) [place] # (Auto) Eos # (Auto) Baso # (Auto) Abs Immat Gran (auto) Absolute Neuts (auto) Absolute Nucleated RBC Nucleated RBC % Sodium Potassium Chloride Carbon Dioxide Anion Gap BUN Creatinine Estim Creat Clear Calc Estimated GFR Glucose POC Capillary Glucose 121 H Calcium Phosphorus 2.3 L Total Bilirubin AST ALT Alkaline Phosphatase Total Protein Albumin Ur L.pneumophila Ag Not detected Urine Pneumococcal Ag Not detected 11/18/24 11/18/24 11/19/24 16:50 21:33 07:37 WBC RBC Hgb Hct MCV MCH MCHC RDW Plt Count MPV Immature Gran % (Auto) Neut % (Auto) Lymph % (Auto) [place] % (Auto) Eos % (Auto) Baso % (Auto) Lymph # (Auto) [place] # (Auto) Eos # (Auto) Baso # (Auto) Abs Immat Gran (auto) Absolute Neuts (auto) Absolute Nucleated RBC Nucleated RBC % Sodium Potassium Chloride Carbon Dioxide Anion Gap BUN Creatinine Estim Creat Clear Calc Estimated GFR Glucose POC Capillary Glucose 149 H 137 H 79 Calcium Phosphorus Total Bilirubin AST ALT Alkaline Phosphatase Total Protein Albumin Ur L.pneumophila Ag Urine Pneumococcal Ag 11/19/24 07:51 WBC 8.7 RBC 2.87 L Hgb 6.7 L* Hct 23.8 L MCV 82.9 MCH 23.3 L MCHC 28.2 L RDW 22.9 H Plt Count 244 MPV 8.8 Immature Gran % (Auto) 3.0 H Neut % (Auto) 83.6 H Lymph % (Auto) 7.0 L [place] % (Auto) 5.6 Eos % (Auto) 0.7 Baso % (Auto) 0.1 L Lymph # (Auto) 0.61 L [place] # (Auto) 0.5 Eos # (Auto) 0.1 Baso # (Auto) 0.0 Abs Immat Gran (auto) 0.26 H Absolute Neuts (auto) 7.3 H Absolute Nucleated RBC 0.000 Nucleated RBC % 0.0 Sodium 140 Potassium 3.3 L Chloride 109 H Carbon Dioxide 30 Anion Gap 1 L BUN 13 Creatinine 1.00 Estim Creat Clear Calc 50 Estimated GFR > 60 Glucose 76 POC Capillary Glucose Calcium 7.3 L Phosphorus Total Bilirubin 0.5 AST 30 ALT 35 Alkaline Phosphatase 77 Total Protein 5.0 L Albumin 2.3 L Ur L.pneumophila Ag Urine Pneumococcal Ag Quality VTE Prophylaxis VTE prophylaxis: mechanical ordered (SCDs)
[2024-11-19] MEDS: CYANOCOBALAMIN 250 MCG TABLET PO (08:32)
[2024-11-19] MEDS: FERROUS SULFATE 325 MG TABLET DR PO (08:32)
[2024-11-19] MEDS: levETIRAcetam 500 MG TABLET PO ×2 (08:32→21:06)
[2024-11-19] MEDS: PANTOPRAZOLE 40 MG TABLET PO (08:32)
[2024-11-19] MEDS: dexAMETHasone 4 MG TABLET PO (08:32)
[2024-11-19 08:35] LABS: Platelet Estimate Adequate (Adequate)
[2024-11-19 08:36] LABS: Anisocytosis 1+; Hypochromasia 2+; Ovalocytes 1+; Polychromasia 1+; Schistocytes Rare
[2024-11-19] MEDS: SODIUM CHLORIDE 0.9% IV 250 ML 30 ML IV CONT (09:27)
[2024-11-19 10:13] LABS: Vancomycin Trough 19.1 ug/mL (10.0-20.0)
--- NOTE | 2024-11-19 10:41 | PCNFU ---
Nutrition Follow-Up Complete: Inadequate oral intake related to taste changes, loss of appetite, recent surgery as evidenced by weight loss, report of poor appetite Goal:Improve PO intake at least 50% meals and supplements Pt current nutrition is Diabetic, Glucerna shakes BID. Nutrition recommendation: continue with current plan of care Last recorded weight is 80.8 kg. Bowel Motility: +BM 11/18 Labs Reviewed: Hgb:6.7, HCT:23.8, K:3.3 Meds Noted: remeron, heparin, metformin, B12, insulin Skin: WNL Additional Notes: Pt continues on a diabetic diet, Glucerna shakes BID. Intake good at 100% at this time. Continue with current plan of care. Monitoring intakes, weights, labs, supplement tolerance, plan of care Follow up in 5 days
[2024-11-19] MEDS: levoFLOXacin 750 MG TABLET PO (10:56)
[2024-11-19] MEDS: AMOXICILLIN/CLAVULANATE K 875-125 MG TAB 1 TABLET PO ×2 (10:56→21:06)
--- NOTE | 2024-11-19 11:03 | HOMEO2EVAL ---
Evaluation was performed at [facility] Home Oxygen Evaluation RC: Home Oxygen (O2) Evaluation Start: 11/18/24 14:20 Freq: ONCE Status: Active Protocol: RPE Activity Type Activity Date Activity User E-sign Co-sign Detail Recorded Client Recorded Date Recorded By Document 11/19/24 10:34 [email or web address] [email or web address] 11/19/24 11:03 KRM Document 11/19/24 10:46 [email or web address] 11/19/24 11:03 KRM Document 11/19/24 10:47 [email or web address] 11/19/24 11:03 KRM Document 11/19/24 10:48 [email or web address] 11/19/24 11:03 KRM Document 11/19/24 10:50 [email or web address] 11/19/24 11:03 KRM 11/19/24 11/19/24 11/19/24 10:34 10:46 10:47 Home O2 Evaluation [Oxygen] -Test Phase Resting Exercise Exercise -Oxygen Delivery Room Air Room Air Nasal Cannula -Oxygen Flow Rate (L/min) 1 [Pulse Oximetry] -Pulse Oximetry (90-100 %) 91 87 L 86 L [Pulse Rate] -Pulse Rate (60-100 beats/min) 91 99 100 [Evaluation] -Activity Tolerance Good Good [Exercise] -Ambulation Distance (feet) -Ambulation Distance (meters) [Comments] -Home Oxygen Evaluation Comments [Charges] -Evaluation Charges 11/19/24 11/19/24 10:48 10:50 Home O2 Evaluation [Oxygen] -Test Phase Exercise Exercise -Oxygen Delivery Nasal Cannula Nasal Cannula -Oxygen Flow Rate (L/min) 2 [Pulse Oximetry] -Pulse Oximetry (90-100 %) 88 L 91 [Pulse Rate] -Pulse Rate (60-100 beats/min) 100 97 [Evaluation] -Activity Tolerance Good Good [Exercise] -Ambulation Distance (feet) 300 -Ambulation Distance (meters) 91.43 [Comments] -Home Oxygen Evaluation Comments ROOM AIR AT REST, 3LPM WITH [facility]. PT. ABLE TO TOLERATE PULSE DOSE, PLEASE PROVIDE POC. [Charges] -Evaluation Charges O2 Evaluation by Pulmonary
--- NOTE | 2024-11-19 11:21 | PCRCNOTE ---
HOME O2 EVALUATION COMPLETED. PT. NEEDS 3LPM WITH [facility]. [facility] [phone] CONTACTED DME. PT. TO BE GIVEN POC. [facility] WILL DELIVER POC TO HOSPITAL TODAY.
[2024-11-19 11:27] LABS: Glucose Point of Care 104 mg/dl (65-105)
[2024-11-19 13:28] LABS: Creatinine, Random Urine 25 mg/dL (20-320); Total Protein/Creatinine Ratio 1920 mg/g creat (25-148)
[2024-11-19 16:10] LABS: Glucose Point of Care 146 mg/dl (65-105)
[2024-11-19 16:23] LABS: Iron 33 ug/dL (49-181)
[2024-11-19] MEDS: metFORMIN HCL XR 500 MG TAB.SR.24H PO (17:12)
[2024-11-19 17:31] LABS: Percent Iron Saturation 17 % (20-50)
[2024-11-19 17:34] LABS: Folic Acid 8.7 ng/mL (2.76->20); Vitamin B12 > 1000.0 pg/mL (239-931)
[2024-11-19 20:03] LABS: Glucose Point of Care 143 mg/dl (65-105)
[2024-11-19 20:22] LABS: Mycoplasma IgM Antibody Titer 184 U/mL
[2024-11-19] MEDS: MIRTAZAPINE 7.5 MG TABLET PO (21:06)
[2024-11-20 01:41] VITALS: PULSE 88; RESP 20
[2024-11-20] MEDS: IPRATROPIUM 0.5 MG/ALBUTEROL SULFATE 2.5 MG AMPUL.NEB 3 ML INHALATION ×2 (01:41→08:26)
[2024-11-20 01:52] VITALS: PULSE 89; RESP 20
[2024-11-20 05:39] VITALS: BP 124/72; PULSE 79; RESP 12; TEMP 36.7; O2SAT 96
[2024-11-20 05:42] LABS: Basophils Percent Auto 0.1 % (0.2-1.2); Eosinophils Absolute Auto 0.1 K/mm3 (0-0.3); Hematocrit 28.9 % (42.0-52.0); Hemoglobin 8.2 g/dL (14.0-18.0); Immature Granulocyte Absolute 0.22 K/mm3 (0.00-0.031); Immature Granulocyte Percent A 2.2 % (0-0.5); Lymphocytes Absolute Auto 0.69 K/mm3 (0.9-3.2); Lymphocytes Percent Auto 6.8 % (18.3-44.2); Mean Corpuscular HGB Conc 28.4 g/dl (32-36); Mean Corpuscular Hemoglobin 23.6 pg (26-34); Mean Corpuscular Volume 83.3 fl (80-100); Mean Platelet Volume 8.8 fl (7.4-10.4); Monocytes Absolute Auto 0.6 K/mm3 (0.1-0.6); Neutrophils Absolute Auto 8.5 K/mm3 (1.3-6.7); Neutrophils Percent Auto 83.9 % (45.5-73.1); Platelet Count Result 270 k/mm3 (150-375); Red Blood Count 3.47 M/mm3 (4.6-6.20); Red Cell Distribution Width 22.2 % (11.5-14.5); White Blood Count 10.1 K/mm3 (4.5-10.0)
[2024-11-20 06:03] LABS: Alanine Aminotransferase 45 U/L (6-50); Albumin Level 2.6 g/dL (3.5-5.1); Alkaline Phosphatase 87 U/L (38-126); Anion Gap 6 mmol/L (4-12); Aspartate Amino Transferase 40 U/L (17-59); Bilirubin,Total 0.5 mg/dL (0.2-1.3); Blood Urea Nitrogen 14 mg/dL (9-20); Calcium 7.6 mg/dL (8.4-10.2); Carbon Dioxide 28 mmol/L (22-30); Chloride 107 mmol/L (98-107); Estimated CRCL calculation 50 ml/min; Estimated Glomerular Filt Rate > 60; Glucose 86 mg/dL (65-110); Potassium 3.6 mmol/L (3.4-5.0); Sodium 141 mmol/L (137-145)
[2024-11-20 06:20] LABS: Anisocytosis 1+; Hypochromasia 1+; Platelet Estimate Adequate (Adequate); Schistocytes None Seen
[2024-11-20 07:42] LABS: Glucose Point of Care 79 mg/dl (65-105)
[2024-11-20 08:26] VITALS: PULSE 96; RESP 18; O2SAT 94
[2024-11-20] MEDS: levETIRAcetam 500 MG TABLET PO (09:23)
[2024-11-20] MEDS: dexAMETHasone 4 MG TABLET PO (09:23)
[2024-11-20] MEDS: AMOXICILLIN/CLAVULANATE K 875-125 MG TAB 1 TABLET PO (09:24)
[2024-11-20] MEDS: CYANOCOBALAMIN 250 MCG TABLET PO (09:24)
[2024-11-20] MEDS: PANTOPRAZOLE 40 MG TABLET PO (09:24)
[2024-11-20] MEDS: levoFLOXacin 750 MG TABLET PO (09:24)
[2024-11-20 09:33] LABS: Protein, Total 4.2 g/dL (6.1-8.1)
--- NOTE | 2024-11-20 09:57 | PM.DS ---
DS: Admitting Diagnosis Discharge Date 11/20/2024 Admitting Diagnosis Pneumonia Acute hypoxic respiratory failure Metastatic adenocarcinoma to brain DS: Discharge Diagnosis Discharge Diagnosis (1) Pleural effusion, left: Code(s): J90 - Pleural effusion, not elsewhere classified Status: Acute (2) Pneumonia: Qualifiers: Laterality: left Lung location: unspecified part of lung Pneumonia type: due to unspecified organism Qualified Code(s): J18.9 - Pneumonia, unspecified organism Code(s): J18.9 - Pneumonia, unspecified organism Status: Acute (3) Acute hypoxic respiratory failure: Code(s): J96.01 - Acute respiratory failure with hypoxia Status: Acute (4) Sepsis: Qualifiers: Acute respiratory failure type: with hypoxia Sepsis acute organ dysfunction status: with acute organ dysfunction Sepsis type: sepsis due to unspecified organism Severe sepsis acute organ dysfunction type: acute respiratory failure Severe sepsis shock status: without septic shock Qualified Code(s): A41.9 - Sepsis, unspecified organism; R65.20 - Severe sepsis without septic shock; J96.01 - Acute respiratory failure with hypoxia Code(s): A41.9 - Sepsis, unspecified organism Status: Acute (5) Metastatic adenocarcinoma to brain: Code(s): C79.31 - Secondary malignant neoplasm of brain Status: Acute (6) Hematuria: Code(s): R31.9 - Hematuria, unspecified Status: Acute (7) Elevated troponin: Code(s): R79.89 - Other specified abnormal findings of blood chemistry Status: Acute (8) Anemia: Code(s): D64.9 - Anemia, unspecified Status: Acute DS: Summary Hospital Course Reason for hospitalization: Shortness of breath Hospital Course: 78-year-old male with a past medical history of 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 ER reported that the patient was evaluated by his home health nurse yesterday and his oxygen saturations were in the mid 70s. (although review of patient's physical therapy record from the demonstrates patient's oxygen saturation was 90% at rest and dropped to 85% during hip adduction exercises. The patient required several minutes of pursed lip breathing with return of oxygen saturations to 90%.) The Patient patient's reports he had been having some cough and wheezing over the last couple of days. The patient denies history of COPD or tobacco use but review of past medical records demonstrates patient does have a distant history of 25 pack per day smoking history with quit date in 1999. His given Tylenol and Zyrtec without improvement in symptoms. He became more acutely short of breath around 05:00 and then presented to the ER around 17:00 today. On arrival to the ER patient was noted to be satting 74% on room air. He was placed on 6 L nasal cannula with improvement in oxygen saturations to 94%. On arrival to the ER he was noted to have a T-max of 100.5°. He was mildly tachypneic and was initially mildly tachycardic. He reports that he is chronically chilled. He has not measured his temperature at home. He denies feeling fevers. He reports ever since he had his craniotomy he has just been generally weak and has been declining in general condition. He is feeling quite fatigued. He denies any headache or vision changes. He reports that food does not taste good and he has developed significant anorexia. He denies dysphagia or sensation of globus. He has not had any nausea or vomiting. Patient's med rec list that he is on Keppra which I suspect was started after his recent surgery and was filled within the last 8 days. However this does not correlate with the patient's 's report of the patient's home meds. The patient reports that he takes Tylenol p.m. for insomnia. It looks like he was also recently prescribed Remeron for insomnia. He does also take omeprazole but denies any increasing GERD symptoms. He does have a prescription for Zofran but again has not been having any nausea. He is not currently on chemotherapy. He reports that he was not supposed be started back on chemotherapy until his craniotomy wound had healed completely. He states that they would discuss restarting his chemotherapy after he had follow-up with the neurosurgeon. Chest x-ray and CTA of the chest were performed in the ER which demonstrated no pulmonary embolism but bilateral findings consistent with patient's history of malignancy and interval development of large left pleural effusion. Patient underwent liver bx in 08/04 which showed metastatic prostate cancer involving the liver. PET scan showed multiple liver and lung metastasis. He had a relapse with brain metastasis underwent craniotomy in 11/02. Pulmonology consulted regarding left pleural effusion. Patient had a CT scan of the abdomen on 10/27/2020 which was unremarkable. Chest x-ray on 07/30/2024 showed bilateral masses and left pleural effusion. CT scan on 08/02/2024 showed multiple pulmonary ground-glass infiltrates and nodules and small with free-flowing pleural effusion. He then had a CT PET scan on 08/15/2024 showing enlarged partially loculated left pleural effusion. Chest x-ray on 11/15/2024 showed a large left pleural effusion occupying approximately 50% of the left hemithorax, with CT scan the same day confirming a large loculated left pleural effusion. Given progressively worsening left pleural effusion, left sided thoracentesis was performed on 11/16 as pt was symptomatic with hypoxia. Pleural fluid obtained showed pH over 7.5, pleural RBC 27,000, with albumin, LDH, glucose pending. Pulmonology concerned if Gram stain was positive, pH was less than 2 positive culture but the patient is going to need be transferred to higher level of care facility for possible thoracic surgery consultation. Given the results the pleural effusion fluid analysis, patient is able to remain at this facility. He was started on broad-spectrum antibiotics including vancomycin and Zosyn as well as Levaquin. Over the course of the hospitalization, patient continues to improve clinically in response to DuoNebs q.6 hours with O2 supplementation with 2 L nasal cannula. Repeat chest x-ray after thoracentesis showed small to moderate pleural effusion, but stable. Pulmonology cleared patient for discharge with appropriate heme/Onc follow-up regarding metastatic adenocarcinoma to the brain. Urology consult for gross hematuria discovered on 11/17. 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 Hematuria eventually cleared overnight and on 11/20, patient had completely clear urine. Agreed that intervention is unnecessary this time. Patient's hemoglobin was found to be 6.7 on 11/19, which required 1 unit PRBC. Repeat H&H on 11/20 showed stable hemoglobin/hematocrit. Home O2 evaluation was initiated as patient continues to depend on 2 L nasal cannula for O2 supplementation. He was then set up for O2 supplementation, likely to 3 L during activity. Patient otherwise hemodynamically stable at this times and her pulmonology, it is safe to be discharged with appropriate follow-up with heme/Onc in the outpatient setting. Clinically, patient appears to be stable and denies any major complaints at this time. Some slight wheezing in the right lung and crackles in the left lung but otherwise his exam is benign. Patient remained denies fevers throughout hospitalization and plans to follow-up with his PCP and oncologist. Plan for discharge home with home health at this time. Status at Discharge Functional status at discharge: independent ambulation Overall status at discharge: patient is progressing back to baseline Time Spent with Patient Time attestation: Total time spent providing and/or coordinating discharge services: 45 Exam Narrative: Gen - ill appearing male in no acute respiratory distress who is nontoxic-appearing lying semi recumbent in bed. On 2L NC HEENT - normocephalic. Atraumatic. Nares patent. Moist mucous membranes. Tongue was midline. Palate myrna symmetrically. No facial asymmetry. Neck - neck was supple. No dominant adenopathy, thyromegaly or masses. Chest - Respiratory effort normal. Some wheezing in right lower lung, decrease breath sounds in lower left lung and crackles in middle left lobe CV - heart was regular rate and rhythm. S1-S2. No murmurs gallops or rubs. Abd - abdomen was soft. Nontender. Nondistended. Positive bowel sounds. Ext - no clubbing, cyanosis or edema. 2+ DP pulses bilaterally. Neuro - patient is alert and oriented x4. Speech is clear. Psych - normal mood and affect. Patient is pleasant and cooperative. Skin - warm and dry. No rashes noted. Const: Other: Acute on chronic ill-appearing, elderly, debilitated, no overt distress HENMT: Other: Craniotomy scar over the top of the head extending to the right frontal scalp appears to be well healed with some remaining scab formation, Mucous membranes are tacky, no oral pharyngeal erythema, head is normocephalic atraumatic, nasal cannula in place Eyes: Other: Pupils are equal and reactive, positive conjunctival pallor, no scleral icterus Neck: Other: No JVD, no overt lymphadenopathy trachea midline Resp: Other: Diffuse wheezing bilateral anterior and posterior lung pinon, conversational tachypnea Cardio: Other: Regular rate, regular rhythm, 2+ bilateral radial pedal pulses GI: Other: Soft, nontender, nondistended, positive bowel sounds : Other: Continent of urine Back/Spine/Pelvis: Other: Mild thoracic kyphosis Skin: Other: Generalized pallor, non jaundice, warm to touch Neuro: Other: Alert orient x4, speech is clear, no facial asymmetry, no localizing neurologic deficits noted during the course of conversation Extrem: Other: No clubbing, cyanosis or edema, moves all extremities equally, generalized muscle wasting Psych: Other: Appropriate mood and affect, pleasant and cooperative, judgment and insight intact DS: Data Data Completed and Pending Pending studies at discharge: Pending at discharge 11/15/24 22:14 Cytology [PTH] Routine Labs on day of discharge: Labs from last 24 hours 11/20/24 11/20/24 11/19/24 07:18 05:36 19:59 WBC 10.1 H RBC 3.47 L Hgb 8.2 L Hct 28.9 L MCV 83.3 MCH 23.6 L MCHC 28.4 L RDW 22.2 H Plt Count 270 MPV 8.8 Immature Gran % (Auto) 2.2 H Neut % (Auto) 83.9 H Lymph % (Auto) 6.8 L [place] % (Auto) 6.0 Eos % (Auto) 1.0 Baso % (Auto) 0.1 L Lymph # (Auto) 0.69 L [place] # (Auto) 0.6 Eos # (Auto) 0.1 Baso # (Auto) 0.0 Abs Immat Gran (auto) 0.22 H Absolute Neuts (auto) 8.5 H Absolute Nucleated RBC 0.000 Band Neutrophils % Not Reportable Nucleated RBC % 0.0 Platelet Estimate Adequate Hypochromasia 1+ Anisocytosis 1+ Schistocytes None seen Sodium 141 Potassium 3.6 Chloride 107 Carbon Dioxide 28 Anion Gap 6 BUN 14 Creatinine 1.00 Estim Creat Clear Calc 50 Estimated GFR > 60 Glucose 86 POC Capillary Glucose 79 143 H Calcium 7.6 L Iron TIBC % Saturation Ferritin Total Bilirubin 0.5 AST 40 ALT 45 Alkaline Phosphatase 87 Total Protein 5.0 L Albumin 2.6 L Vitamin B12 Folate Ur Random Creatinine U Random Total Protein Protein/Creatinin Ratio Vancomycin Trough Anti-DNA Antibody Mycoplasma pneumon IgM SARS-CoV-2 RNA (RT-PCR) Blood Type Antibody Screen Crossmatch 11/19/24 11/19/24 11/19/24 16:07 11:24 09:33 WBC RBC Hgb Hct MCV MCH MCHC RDW Plt Count MPV Immature Gran % (Auto) Neut % (Auto) Lymph % (Auto) [place] % (Auto) Eos % (Auto) Baso % (Auto) Lymph # (Auto) [place] # (Auto) Eos # (Auto) Baso # (Auto) Abs Immat Gran (auto) Absolute Neuts (auto) Absolute Nucleated RBC Band Neutrophils % Nucleated RBC % Platelet Estimate Hypochromasia Anisocytosis Schistocytes Sodium Potassium Chloride Carbon Dioxide Anion Gap BUN Creatinine Estim Creat Clear Calc Estimated GFR Glucose POC Capillary Glucose 146 H 104 Calcium Iron 33 L TIBC 190 L % Saturation 17 L Ferritin 424.00 H Total Bilirubin AST ALT Alkaline Phosphatase Total Protein Albumin Vitamin B12 > 1000.0 H Folate 8.7 Ur Random Creatinine U Random Total Protein Protein/Creatinin Ratio Vancomycin Trough 19.1 Anti-DNA Antibody Mycoplasma pneumon IgM SARS-CoV-2 RNA (RT-PCR) Blood Type A Positive Antibody Screen Negative Crossmatch See Detail 11/19/24 11/18/24 11/18/24 07:51 10:32 06:41 WBC RBC Hgb Hct MCV MCH MCHC RDW Plt Count MPV Immature Gran % (Auto) Neut % (Auto) Lymph % (Auto) [place] % (Auto) Eos % (Auto) Baso % (Auto) Lymph # (Auto) [place] # (Auto) Eos # (Auto) Baso # (Auto) Abs Immat Gran (auto) Absolute Neuts (auto) Absolute Nucleated RBC Band Neutrophils % Nucleated RBC % Platelet Estimate Hypochromasia Anisocytosis Schistocytes Sodium Potassium Chloride Carbon Dioxide Anion Gap BUN Creatinine Estim Creat Clear Calc Estimated GFR Glucose POC Capillary Glucose Calcium Iron TIBC % Saturation Ferritin Total Bilirubin AST ALT Alkaline Phosphatase Total Protein 4.2 L Albumin Vitamin B12 Folate Ur Random Creatinine 25 U Random Total Protein 48 H Protein/Creatinin Ratio 1920 H Vancomycin Trough Anti-DNA Antibody <1 Mycoplasma pneumon IgM SARS-CoV-2 RNA (RT-PCR) Blood Type Antibody Screen Crossmatch 11/16/24 11/15/24 15:56 23:34 WBC RBC Hgb Hct MCV MCH MCHC RDW Plt Count MPV Immature Gran % (Auto) Neut % (Auto) Lymph % (Auto) [place] % (Auto) Eos % (Auto) Baso % (Auto) Lymph # (Auto) [place] # (Auto) Eos # (Auto) Baso # (Auto) Abs Immat Gran (auto) Absolute Neuts (auto) Absolute Nucleated RBC Band Neutrophils % Nucleated RBC % Platelet Estimate Hypochromasia Anisocytosis Schistocytes Sodium Potassium Chloride Carbon Dioxide Anion Gap BUN Creatinine Estim Creat Clear Calc Estimated GFR Glucose POC Capillary Glucose Calcium Iron TIBC % Saturation Ferritin Total Bilirubin AST ALT Alkaline Phosphatase Total Protein Albumin Vitamin B12 Folate Ur Random Creatinine U Random Total Protein Protein/Creatinin Ratio Vancomycin Trough Anti-DNA Antibody Mycoplasma pneumon IgM 184 SARS-CoV-2 RNA (RT-PCR) Not detected Blood Type Antibody Screen Crossmatch Preliminary micro results at discharge 11/16/24 15:10 Fungal Culture - Preliminary Pleural Fluid 11/16/24 15:10 Anaerobic Culture - Preliminary Pleural Fluid Aerobic Culture - Preliminary 11/16/24 15:19 Acid Fast Bacilli Culture - Preliminary Pleural Fluid 11/15/24 17:43 Blood Culture - Preliminary Blood 11/15/24 18:00 Blood Culture - Preliminary Blood Discharge Plan Discharge Attending physician on discharge: Smith Silva Consulting providers: Agustin Brown; Rajeev Izquierdo; Karl Yoo Discharging Clinician: Smith Silva Anticipated Discharge Date/Time: 11/20/24 09:50 Patient Disposition: Home with Home Health Service Activity: no straining and as tolerated Diet: as tolerated Discharge Instructions: Per Care Coordination: [facility] will resume services at discharge. [facility] will follow for RN and PT/OT eval and treat. [facility] will contact you prior to their first visit. [facility] can be contacted at [phone]. Take all medications as prescribed even if feeling better. You are going to be given a prescription for Augmentin and Levaquin for your pneumonia to continue taking twice daily through 11/25. Eat well balanced meals and stay hydrated Keep active, but do not over do it If you notice that you are short of breath sit down and take a break Check your SPO2 periodically, if it is low cough and rest, check again in about 15 minutes, if you remain low, you should come back to the hospital If you should experience any chest pain, shortness of breath, temps >100.4 or any other worrisome symptoms please follow up with your PCP come back to the hospital Follow up with your primary in 1 weeks Follow up with Dr. Brown with hematology/oncology as soon as possible. It has been a pleasure taking care of you thank you for using our services Patient Instructions: Antibiotic Form Patient Language: Polish Stand Alone Forms: General Discharge Information Follow-up/Referrals: Agustin Brown MD [Physician] - Natalie Colin MD [Primary Care Provider] - Discharge Medications: New amoxicillin-pot clavulanate 875-125 mg tablet 1 tablet PO Q12H Qty: 11 0RF levofloxacin 750 mg tablet 750 mg PO DAILY Qty: 5 0RF Continued cyanocobalamin (vitamin B-12) 250 mcg tablet 250 mcg PO DAILY ferrous sulfate 325 mg (65 mg iron) tablet 325 mg PO DAILY lidocaine-prilocaine 2.5-2.5 % cream 1 applic topical ONCE mirtazapine 7.5 mg tablet 7.5 mg PO QHS omeprazole magnesium 20 mg tablet,delayed release (DR/EC) 20 mg PO DAILY ondansetron 8 mg tablet,disintegrating 8 mg PO ONCE dexamethasone 4 mg tablet 4 mg PO DAILY ergocalciferol (vitamin D2) 1,250 mcg (50,000 unit) capsule 1,250 mcg PO WEEKLY Qty: 12 1RF Patient Comments: .. simvastatin 40 mg tablet 40 mg PO QHS Qty: 90 1RF Patient Comments: . metformin [Glucophage XR] 500 mg tablet extended release 24 hr 500 mg PO QPM Qty: 100 1RF escitalopram oxalate [Lexapro] 5 mg tablet 5 mg PO DAILY Qty: 90 0RF Date of admission: 11/15/24 20:34 Primary Care Provider: Natalie Colin Admitting Provider: Loyda Thompson Attending physician on admission: Smith Silva Condition: Improved Quality VTE Prophylaxis VTE prophylaxis: mechanical ordered (SCDs)
[2024-11-20 12:24] LABS: Kappa\\Lambda Light Chains 0.79 (0.26-1.65); Lambda Light Chain 19.4 mg/L (5.7-26.3)
[2024-11-20 14:38] LABS: Anti Glomerular Basement Memb <1.0 AI
[2024-11-21 09:09] LABS: Albumin 1.9 g/dL (3.8-4.8); Alpha 1 Globulin 0.6 g/dL (0.2-0.3); Alpha 2 Globulin 0.8 g/dL (0.5-0.9); Beta 1 Globulin 0.3 g/dL (0.4-0.6); Gamma Globulin 0.4 g/dL (0.8-1.7)
[2024-11-21 20:37] LABS: Myoglobin, Urine <1 mg/L (0-1)
[2024-11-21 21:44] LABS: Albumin Pleural Fluid 1.4 g/dL; Glucose Pleural Fluid 170 mg/dL; LDH Pleural Fluid 344 U/L
[2024-11-21 23:38] LABS: Immunofixation, Serum Normal pattern.
[2024-11-22 01:38] LABS: Adenovirus DNA Not Detected (Not Detected); Chlamydophila pneumoniae Not Detected (Not Detected); Coronavirus 229E Not Detected (Not Detected); Coronavirus HKU1 Not Detected (Not Detected); Coronavirus NL63 Not Detected (Not Detected); Coronavirus OC43 Not Detected (Not Detected); Human Metapneumovirus Not Detected (Not Detected); Human Parainfluenza Virus 1 Not Detected (Not Detected); Human Parainfluenza Virus 2 Not Detected (Not Detected); Human Parainfluenza Virus 3 Not Detected (Not Detected); Human Parainfluenza Virus 4 Not Detected (Not Detected); Human RSV B Not Detected (Not Detected); Influenza A Not Detected (Not Detected); Influenza B Not Detected (Not Detected); Mycoplasma pneumoniae Not Detected (Not Detected); Rhinovirus/Enterovirus Not Detected (Not Detected)
[2024-11-22 11:53] LABS: ANCA Screen NEGATIVE (NEGATIVE)
== END 2024-11-20 13:15 | disposition home health service (06) | DRG 871 ==
LOC: ANHED 20:33 → ANHIMU 21:21 → ANH3MEDSUR 11-16 18:01
PROVIDERS: Internal Medicine Hematology & Oncology; Internal Medicine Nephrology; Internal Medicine Pulmonary Disease; Admitting Provider Internal Medicine; Emergency Provider Registered Nurse; PCP Family Medicine; Visit Provider Physician Assistant
DX: A41.9 Sepsis, unspecified organism (principal); J18.9 Pneumonia, unspecified organism; J96.01 Acute respiratory failure with hypoxia; C79.51 Secondary malignant neoplasm of bone; C79.31 Secondary malignant neoplasm of brain; C78.7 Secondary malignant neoplasm of liver and intrahepatic bile duct; C78.00 Secondary malignant neoplasm of unspecified lung; J90 Pleural effusion, not elsewhere classified; I24.89 Other forms of acute ischemic heart disease; N30.41 Irradiation cystitis with hematuria; R65.20 Severe sepsis without septic shock; C61 Malignant neoplasm of prostate; E11.9 Type 2 diabetes mellitus without complications; E78.5 Hyperlipidemia, unspecified; M17.9 Osteoarthritis of knee, unspecified; Z20.822 Contact with and (suspected) exposure to COVID-19; Z87.891 Personal history of nicotine dependence
CPT/HCPCS: 32555; 36415; 36430; 36600; 71045; 71275; 80048; 80053; 80202; 81001; 81050; 82042; 82550; 82570; 82595; 82607; 82728; 82746; 82805; 82945; 82948; 83520; 83540; 83550; 83605; 83615; 83735; 83874; 83880; 83883; 83986; 84100; 84145; 84155; 84156; 84165; 84166; 84443; 84478; 84484; 85018; 85025; 85610; 85652; 85730; 86036; 86038; 86039; 86140; 86225; 86334; 86335; 86738; 86850; 86900; 86901; 86920; 87015; 87040; 87070; 87075; 87102; 87116; 87205; 87206; 87449; 87633; 87637; 87641; 87899; 88108; 88305; 88342; 89051; 93005; 94618; 94640; 96361; 96365; 96366; 96375; 99285; A9270; J0612; J1642; J1956; J2543; J2919; J3370; J7030; J7050; J8540; P9016; Q9967

== ENCOUNTER 2024-11-27 10:05 | Emergency (ER) | payer OTHER, SELFPAY ==
[2024-11-27] VITALS (47 sets, daily range): BP systolic 103–123; BP diastolic 54–82; PULSE 91–106; RESP 20–37; TEMP 36.8; O2SAT 65–100
--- NOTE | ~2024-11-27 | CT_ITS ---
CTA chest PE protocol Ordering provider: Marimar Niño PA-C History: 79 years Male with . lung ca, pleural effusions, recent PNA, hypoxia . Comparison: November 15, 2024 Technique: CT angiogram chest was performed following timed intravenous injection of contrast. Thin s lice axial images and reformatted coronal images were obtained. Three dimensional reformatted images of the chest were also obtained using a [employer] workstation. . Automated exposure control and iterati ve reconstruction technique were employed. The dose-length product was 638.12 mGy-cm. Findings: Right Port-A-Cath with the tip in the superior vena cava. PULMONARY ARTERIES: No pulmonary embolus. VISUALIZED THORACIC INLET: Normal. MEDIASTINUM: Aorta/coronary arteries: Mild atheromatous disease. Heart/other: The heart is not enlarged. Lymph nodes: Enlarged precarinal lymph nodes are noted with the largest measures 1.9 cm. Subcarinal l ymph nodes are also seen with the largest measuring 1.3 x 1.3 cm. Left hilar lymphadenopathy is seen measuring 2.8 x 3.2 cm. LUNGS: Mass is seen in the left lower lobe measuring 6.7 x 7.6x 10 cm. No pneumothorax. Left pleural effusio n with adjacent atelectasis seen. Pneumonia in the right upper lobe is noted. Pneumonia in the left u pper lobe posteriorly is also noted. Pneumonia in the right lower lobe is seen. Changes are increased compared to previous examination. VISUALIZED UPPER ABDOMEN: Multiple hypodensities in the liver suggestive of metastatic lesions with t he largest in the right lobe segment #6 measuring 2.6 x 5 cm. Right adrenal adenoma or metastatic les ion. Otherwise, the visualized upper abdomen is normal. MUSCULOSKELETAL: Soft tissues: The superficial soft tissues are normal. Bones: Age appropriate degenerative changes of the spine. Healing fractures in the right 10th and 11t h ribs seen posteriorly IMPRESSION: 1. No pulmonary embolism. 2. Pneumonia in the right upper and lower lobes with pneumonia in the left upper lobe. 3. Large mass in the left lower lobe unchanged from previous examination. 4. Left pleural effusion. 5. Multiple Metastatic lesions in the liver. Reviewed, dictated and finalized at location A. IMPRESSION: 1. No pulmonary embolism. 2. Pneumonia in the right upper and lower lobes with pneumonia in the left upp er lobe. 3. Large mass in the left lower lobe unchanged from previous examination. 4. Left pleural effusion. 5. Multiple Metastatic lesions in the liver.
--- NOTE | ~2024-11-27 | XR_ITS ---
[id number] Ordering provider: Albert Haq MD History: 79 years Male with . POST THORO . Comparison: None. FINDINGS: MEDIASTINUM: The cardiac silhouette is not enlarged. Congestive mayela. Right Port-A-Cath with the tip overlying the superior vena cava. LUNGS: No pneumothorax. Opacification in the right upper and lower lobe and left lower lobe suggestiv e of pneumonia. Underlying pulmonary edema is not excluded. Left pleural effusion is highly suggestiv e. OTHER: No free air under the diaphragm. IMPRESSION: Bilateral pneumonia. Underlying pulmonary edema is highly suggestive. Left pleural effusion. Reviewed, dictated and finalized at location A.
--- NOTE | ~2024-11-27 | US_ITS ---
EXAMINATION: US thoracentesis DATE: 11/27/2024 16:33 INDICATION: Left-sided pleural effusion TECHNIQUE: The procedure and its risks, benefits, and alternatives were discussed with the patient by Dr. Haq. Potential risks discussed included bleeding, infection, and pneumothorax. The patient understood the risks and agreed to proceed. A timeout was then performed as per protocol by Dr. Haq. . The skin was prepped and draped in sterile fashion. 5 cc of 1% lidocaine was used for local anesthesia. Under ultrasound guidance, a 5 Fr catheter with trocar was advanced into the left-sided pleural effus ion by Dr. Haq, and the trocar needle removed. The catheter was then attached to vacuum suction. 250 cc of fluid was evacuated. The catheter was then removed by Dr. Haq, and a sterile dressing was applied. There were no immediate complications. FINDINGS: Ultrasound images demonstrate a left-sided pleural effusion and the catheter within the fluid. IMPRESSION: 1. Technically successful ultrasound-guided left-sided thoracentesis, performed by Dr. Haq yield ing 250 mL of fluid. Reviewed, dictated and finalized at location A. IMPRESSION: 1. Technically successful ultrasound-guided left-sided thoracentesis, performed by Dr. Haq yielding 250 mL of fluid.
--- NOTE | 2024-11-27 10:10 | ECG_ITS ---
Test Date: 2024-11-27 10:10:30 Measurements Intervals [place] Rate: 105 P: 44 MN: 163 QRS: 6 QRSD: 82 T: 23 QT: 288 QTc: 382 Interpretive Statements SINUS TACHYCARDIA ABNORMAL RHYTHM ECG Compared to ECG 11/15/2024 17:58:48 Sinus rhythm no longer present Electronically Signed On 11-27-2024 13:41:43 CDT by Clive Glez M.D.
--- NOTE | 2024-11-27 10:32 | ED_ITS ---
HPI - SOB/Dyspnea General Chief Complaint: Shortness of Breath/Dyspnea <ANÍBAL Lr Last Filed: 11/27/24 18:35> Stated Complaint: SOB <ANÍBAL Lr Last Filed: 11/27/24 18:35> Time Seen by Provider: 11/27/24 10:10 <ANÍBAL Lr Last Filed: 11/27/24 18:35> Source: patient and family <ANÍBAL Lr Last Filed: 11/27/24 18:35> Mode of arrival: EMS <ANÍBAL Lr Last Filed: 11/27/24 18:35> Limitations: no limitations <ANÍBAL Lr Last Filed: 11/27/24 18:35> History of Present Illness HPI Narrative: Patient is an 79 y/o male who presents to the ED via EMS with c/o SOB. 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 Currently undergoing chemotherapy and gamma knife radiation treatment through Dr. Brown, and with [facility]. He was admitted to the hospital here last week for pneumonia as well as a large left- sided pleural effusion. He underwent thoracentesis at that time and was started on home oxygen at 3 L. Patient began feeling increasingly short of breath over the weekend, which became significantly worse last night. reports she increased his oxygen to 5 L at home, but his oxygen saturations were only reading in the mid 60s. Patient's home health nurse came to their house today and recommended they call EMS for further evaluation. Given a DuoNeb in route. Oxygen saturations 65% on 6 L upon arrival to the ED. Patient denies chest pain. He does report recent cough. Denies fevers. Denies pain/swelling in legs. < ANÍBAL Lr Last Filed: 11/27/24 18:35> Related Data Home Medications: Home Medications ?Medication ?Instructions ?Recorded ?Confirmed ?Last Taken ?Type cyanocobalamin (vitamin B-12) 250 250 mcg PO DAILY 11/05/24 11/15/24 11/15/24 History mcg tablet ferrous sulfate 325 mg (65 mg 325 mg PO DAILY 11/05/24 11/15/24 11/15/24 History iron) tablet lidocaine-prilocaine 2.5 %-2.5 % 1 applic topical ONCE 11/05/24 11/15/24 10/30/24 History topical cream mirtazapine 7.5 mg tablet 7.5 mg PO QHS 11/05/24 11/16/24 Unknown History omeprazole magnesium 20 mg 20 mg PO DAILY 11/05/24 11/15/24 11/14/24 History tablet,delayed release ondansetron 8 mg disintegrating 8 mg PO ONCE 11/05/24 11/15/24 Unknown History tablet dexamethasone 4 mg tablet 4 mg PO DAILY 11/15/24 11/15/24 11/14/24 History <Marimar Niño PA-C - Last Filed: 11/27/24 18:35> Allergies/Adverse Reactions: Allergies Allergy/AdvReac Type Severity Reaction Status Date / Time No Known Allergies Allergy Verified 11/05/24 08:23 <Marimar Niño PA-C - Last Filed: 11/27/24 18:35> Review of Systems 2 Review of Systems: All systems reviewed & are unremarkable except as noted in HPI. <Marimar Niño PA-C - Last Filed: 11/27/24 18:35> All systems reviewed & are unremarkable except as noted in HPI and below < Marimar Niño PA-C - Last Filed: 11/27/24 18:35> COUNT INCLUDES THE [facility] Past Medical History Medical History: Medical History Metastatic adenocarcinoma to brain Insomnia Hyponatremia Secondary malignant neoplasm of bone Anemia Prediabetes Family history of melanoma History of colonic polyps Basal cell carcinoma Prostate cancer (~2020) Other and unspecified hyperlipidemia Osteoarthritis of knee, unspecified <Marimar Niño PA-C - Last Filed: 11/27/24 18:35> Surgical History Surgical History: Surgical History Status post cataract extraction of both eyes with insertion of intraocular lens (2023) Port-A-Cath in place (09/17/24) History of craniotomy (10/20/24) left frontal lobe lesion resection History of tonsillectomy <Marimar Niño PA-C - Last Filed: 11/27/24 18:35> Family History Family History: Family History Father Acute myocardial infarction Heart disease Mother Breast cancer Sibling Melanoma <Marimar Niño PA-C - Last Filed: 11/27/24 18:35> Social History Social History: Social History Social History: 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 He lives with his of 58 years. They raised 3 sons. Patient has smoked 1 pack of cigarettes per day for 35-40 years but quit smoking in 1999. He used to drink 2 alcoholic beverages a night but has cut back since his recent illness. He denies history of illicit substance use. He has been ambulating with a walker since he was discharged from the hospital in October at following his craniotomy. Code status: Full code (the patient initially told me that he did not want to be intubated but when discussing cardiac resuscitation he stated that he would defer all decisions to his son Chente. He stated that Chente would not do something that was not necessary any wants him to make the his decisions for him. Smoking packs per day: 1 Smoking cigarettes per day: 20.0 Years smoked: 40 Smoking pack-years: 40.00 Smoking status: Former smoker Tobacco type: cigarettes Second hand tobacco smoke exposure: No Smoking end date: 07/11/99 Alcohol intake: current Drinks per week: 21 Alcohol use details: Liquor Substance use: never Substance use type: does not use Do You Feel Safe in your Home?: Yes Lack of Transportation: No Lack of Food: Never True Current Housing: I Have Housing Concerned About Future Housing: No Difficulty Paying Gas/Electric Bills: No Difficulty Paying for Meds: No Currently Unemployed: No Education: High School Diploma/GED Difficulty w/ Childcare or Family Care: No Living arrangements: with family Additional living arrangements comments: Occupation/Education: retired Gender identity (if verbalized by the patient): Male Sexual Orientation (if Verbalized by the Patient): Straight or Heterosexual Spiritual care concerns: No Agree to blood products: Yes <Marimar Niño PA-C - Last Filed: 11/27/24 18:35> Exam 2 Narrative: GENERAL: Ill-appearing, well-nourished, moderate acute respiratory distress HEAD: Normocephalic, atraumatic. RESPIRATORY: Airway patent, respirations tachypneic and labored. Decreased lung sounds in bases bilaterally, worse on left. Still moving decent air. Scattered occasional wheezing. CARDIOVASCULAR: Tachycardic with regular rhythm without murmurs, rubs, or gallops. Peripheral pulses intact. ABDOMINAL: Soft, nontender, nondistended. Normoactive BS. MUSCULOSKELETAL: Moves all extremities. No gross deformities. Port-A-Cath in right upper chest. No significant peripheral edema. No calf tenderness SKIN: Warm, dry, normal color. NEURO: A&O X3. Speech clear. Cranial nerves II-XII grossly intact. Steady gait. No ataxic movements. PSYCHIATRIC: Appropriate mood and affect. Normal interaction. <Marimar Niño PA-C - Last Filed: 11/27/24 18:35> Course JOINER APPRENTICE/PA Physician Supervision I was made aware that patient was hypoxic on arrival. Went to bedside with ANTONY and patient saturating in the 60s on NC. Somewhat Diminished air movement but better than anticipated for degree of hypoxia. Patient placed on NRB and SpO2 markedly improved, 96-98%. History obtained as below. Respiratory to bedside. Discussed plan with PA and, reasonable to attempt transfer to [facility] for continuity of care. Aware patient was accepted and, while pending bed, therapeutic thoracentesis was able to be performed by radiology. <Suzi Wahl MD - Last Filed: 11/28/24 10:48> Vital Signs Vital signs: Vital Signs Temperature 98.2 F 11/27/24 10:04 Pulse Rate 106 H 11/27/24 10:04 Respiratory Rate 31 H 11/27/24 10:04 Blood Pressure 114/54 L 11/27/24 10:04 Pulse Oximetry 65 L 11/27/24 10:04 Oxygen Delivery Nasal Cannula 11/27/24 10:04 Oxygen Flow Rate 3 11/27/24 10:04 Temperature 98.2 F 11/27/24 10:04 Pulse Rate 94 11/27/24 18:01 Respiratory Rate 32 H 11/27/24 18:01 Blood Pressure 108/70 11/27/24 18:00 Pulse Oximetry 95 11/27/24 18:01 Oxygen Delivery BiPAP 11/27/24 16:58 Oxygen Flow Rate 15 11/27/24 10:16 <Marimar Niño PA-C - Last Filed: 11/27/24 18:35> Vital Signs Temperature 98.2 F 11/27/24 10:04 Pulse Rate 106 H 11/27/24 10:04 Respiratory Rate 31 H 11/27/24 10:04 Blood Pressure 114/54 L 11/27/24 10:04 Pulse Oximetry 65 L 11/27/24 10:04 Oxygen Delivery Nasal Cannula 11/27/24 10:04 Oxygen Flow Rate 3 11/27/24 10:04 Temperature 98.2 F 11/27/24 10:04 Pulse Rate 94 11/27/24 18:01 Respiratory Rate 32 H 11/27/24 18:01 Blood Pressure 108/70 11/27/24 18:00 Pulse Oximetry 95 11/27/24 18:01 Oxygen Delivery BiPAP 11/27/24 16:58 Oxygen Flow Rate 15 11/27/24 10:16 <Suzi Wahl MD - Last Filed: 11/28/24 10:48> MDM - SOB/Dyspnea MDM Narrative Medical decision making narrative: Patient presented to ED with shortness breath/hypoxia, history of metastatic lung and prostate cancer. Patient acutely ill upon arrival, marked hypoxic into the mid 60s, on 6L NC. Patient tachycardic, tachypneic. He is afebrile here. Blood pressure remaining stable for now. Patient was transition to non-rebreather mask with improvement of oxygen saturations into the upper 90s. Respiratory notified. ABG and BiPAP orders placed. 06/15, fio2 45% EKG with sinus tachycardia, no significant ischemic changes. Normal QTC. Baseline troponin 0.065. Will continue to trend. Patient denying CP at this time. BNP is elevated to 1790. Patient does not appear markedly fluid overloaded. CBC with white blood cell count of 15. Neutrophil predominance. No bandemia. Stable anemia, consistent with previous records. ABG with respiratory alkalosis, some compensation. Patient doing much better on BiPAP. CMP is unremarkable. Stable kidney function, consistent with previous records. Initial lactic acid 2.6. Will continue to monitor. Stable electrolytes. Viral swabs negative. CTA of chest was obtained patient with evidence of extensive bilateral pneumonia. Left lung mass unchanged. Recurrent left-sided pleural effusion. No PE. Multiple metastatic lesions. Blood cultures obtained. Patient started on ceftriaxone, azithromycin, vancomycin for community and hospital-acquired pneumonia. I did receive a call from Dr. Avilez, pulmonology, advised that patient's cytology from recent thoracentesis did result positive, related to his cancer. Recommended PleurX catheter. Also received call from infectious Disease pharmacist, recommended cefepime and azithromycin for pneumonia coverage. D/C vancomycin as MRSA PCR negative. These were updated. Patient wishes to be a modified code. He would like chest compressions if his heart were to stop. He does not wish to be intubated and placed on a ventilator for artificial means of keeping alive. Patient is scheduled to receive brain radiation treatments later this week through [facility]. Additionally, we do not perform PleurX catheters here. Will discuss with [facility] for transfer. Patient in agreement with plan and transfer. Discussed case with Dr. Smith, hospitalist @ [facility], accepted patient for transfer. Awaiting bed placement. Patient wanting to trial off bipap, becoming slightly agitated with mask, however o2 sats still mid 90s on bipap. I did discuss case with Dr. Haq, radiology, felt he could perform thoracentesis while awaiting transfer. Approx 300ml drained. Patient feeling slightly better. Still requiring bipap however. Patient received bed at [facility]. Transportation being arranged. In agreement with plan. Patient left our facility in stable condition. <Marimar Niño PA-C - Last Filed: 11/27/24 18:35> Medical Records Attestation: I reviewed the patient's medical records. <Marimar Niño PA-C - Last Filed: 11/27/24 18:35> Lab Data Attestation: I reviewed the patient's lab results. <Marimar Niño PA-C - Last Filed: 11/27/24 18:35> Result diagrams: 11/27/24 10:28 11/27/24 10:34 <Marimar Niño PA-C - Last Filed: 11/27/24 18:35> Labs: Lab Results 11/27/24 11/27/24 11/27/24 Range/Units 10:28 10:28 10:33 WBC 15.0 H (4.5-10.0) K/mm3 RBC 4.03 L (4.6-6.20) M/mm3 Hgb 9.5 L (14.0-18.0) g/dL Hct 33.2 L (42.0-52.0) % MCV 82.4 (80-100) fl MCH 23.6 L (26-34) pg MCHC 28.6 L (32-36) g/dl RDW 21.2 H (11.5-14.5) % Plt Count 390 H (150-375) k/mm3 MPV 8.3 (7.4-10.4) fl Immature Gran % (Auto) 1.6 H (0-0.5) % Neut % (Auto) 88.1 H (45.5-73.1) % Lymph % (Auto) 4.5 L (18.3-44.2) % Hooker % (Auto) 5.3 (2.6-8.5) % Eos % (Auto) 0.4 (0-4.4) % Baso % (Auto) 0.1 L (0.2-1.2) % Lymph # (Auto) 0.67 L (0.9-3.2) K/mm3 Hooker # (Auto) 0.8 H (0.1-0.6) K/mm3 Eos # (Auto) 0.1 (0-0.3) K/mm3 Baso # (Auto) 0.0 (0.0-0.1) K/mm3 Abs Immat Gran (auto) 0.24 H (0.00-0.031) K/mm3 Absolute Neuts (auto) 13.2 H (1.3-6.7) K/mm3 Absolute Nucleated RBC 0.000 (0.0-0.012) K/mm3 Band Neutrophils % Not Reportable Nucleated RBC % 0.0 (0.0-0.2) % Platelet Estimate Increased (Adequate) Large Platelets Present Hypochromasia 1+ Anisocytosis 2+ Microcytosis 1+ (NORMAL) Ovalocytes 1+ Schistocytes None seen PT 16.0 H (11.1-14.7) Seconds INR 1.2 APTT 31.2 (22.3-36.8) Seconds Methemoglobin 0.1 (0-1.5) %THb Expiratory Pressure 6 cmH2O Inspiratory Pressure 12 cmH2O Sodium 138 (137-145) mmol/L Potassium 4.0 (3.4-5.0) mmol/L Chloride 99 (98-107) mmol/L Carbon Dioxide 32 H (22-30) mmol/L Anion Gap 7 (4-12) mmol/L BUN 19 (9-20) mg/dL Creatinine 0.91 (0.7-1.3) mg/dL Estim Creat Clear Calc 52 ml/min Estimated GFR > 60 (59 - ) Glucose 123 H (65-110) mg/dL Lactic Acid 2.6 H (0.7-2.0) mmol/L Calcium 9.0 (8.4-10.2) mg/dL Magnesium 2.3 (1.6-2.3) mg/dL Total Bilirubin 0.8 (0.2-1.3) mg/dL AST 36 (17-59) U/L ALT 28 (6-50) U/L Alkaline Phosphatase 108 (38-126) U/L Troponin I 0.065 H* (0.000-0.034) ng/mL NT-Pro-B Natriuret Pep 1790 H Cancelled (19.9-100) pg/mL Total Protein 7.0 (6.3-8.2) g/dL Albumin 3.2 L (3.5-5.1) g/dL Nasal MRSA (PCR) (NOT DETECTE) Influenza A (RT-PCR) (Negative) Influenza B (RT-PCR) (Negative) RSV (RT-PCR) (Negative) SARS-CoV-2 RNA (RT-PCR) (Negative) 11/27/24 11/27/24 11/27/24 Range/Units 10:34 10:48 11:38 WBC (4.5-10.0) K/mm3 RBC (4.6-6.20) M/mm3 Hgb (14.0-18.0) g/dL Hct (42.0-52.0) % MCV (80-100) fl MCH (26-34) pg MCHC (32-36) g/dl RDW (11.5-14.5) % Plt Count (150-375) k/mm3 MPV (7.4-10.4) fl Immature Gran % (Auto) (0-0.5) % Neut % (Auto) (45.5-73.1) % Lymph % (Auto) (18.3-44.2) % Hooker % (Auto) (2.6-8.5) % Eos % (Auto) (0-4.4) % Baso % (Auto) (0.2-1.2) % Lymph # (Auto) (0.9-3.2) K/mm3 Hooker # (Auto) (0.1-0.6) K/mm3 Eos # (Auto) (0-0.3) K/mm3 Baso # (Auto) (0.0-0.1) K/mm3 Abs Immat Gran (auto) (0.00-0.031) K/mm3 Absolute Neuts (auto) (1.3-6.7) K/mm3 Absolute Nucleated RBC (0.0-0.012) K/mm3 Band Neutrophils % Nucleated RBC % (0.0-0.2) % Platelet Estimate (Adequate) Large Platelets Hypochromasia Anisocytosis Microcytosis (NORMAL) Ovalocytes Schistocytes PT (11.1-14.7) Seconds INR APTT (22.3-36.8) Seconds Methemoglobin (0-1.5) %THb Expiratory Pressure cmH2O Inspiratory Pressure cmH2O Sodium (137-145) mmol/L Potassium (3.4-5.0) mmol/L Chloride (98-107) mmol/L Carbon Dioxide (22-30) mmol/L Anion Gap (4-12) mmol/L BUN (9-20) mg/dL Creatinine 1.10 (0.7-1.3) mg/dL Estim Creat Clear Calc 44 ml/min Estimated GFR > 60 (59 - ) Glucose (65-110) mg/dL Lactic Acid (0.7-2.0) mmol/L Calcium (8.4-10.2) mg/dL Magnesium (1.6-2.3) mg/dL Total Bilirubin (0.2-1.3) mg/dL AST (17-59) U/L ALT (6-50) U/L Alkaline Phosphatase (38-126) U/L Troponin I (0.000-0.034) ng/mL NT-Pro-B Natriuret Pep (19.9-100) pg/mL Total Protein (6.3-8.2) g/dL Albumin (3.5-5.1) g/dL Nasal MRSA (PCR) Not detected (NOT DETECTE) Influenza A (RT-PCR) Negative (Negative) Influenza B (RT-PCR) Negative (Negative) RSV (RT-PCR) Negative (Negative) SARS-CoV-2 RNA (RT-PCR) Negative (Negative) 11/27/24 Range/Units 12:58 WBC (4.5-10.0) K/mm3 RBC (4.6-6.20) M/mm3 Hgb (14.0-18.0) g/dL Hct (42.0-52.0) % MCV (80-100) fl MCH (26-34) pg MCHC (32-36) g/dl RDW (11.5-14.5) % Plt Count (150-375) k/mm3 MPV (7.4-10.4) fl Immature Gran % (Auto) (0-0.5) % Neut % (Auto) (45.5-73.1) % Lymph % (Auto) (18.3-44.2) % Hooker % (Auto) (2.6-8.5) % Eos % (Auto) (0-4.4) % Baso % (Auto) (0.2-1.2) % Lymph # (Auto) (0.9-3.2) K/mm3 Hooker # (Auto) (0.1-0.6) K/mm3 Eos # (Auto) (0-0.3) K/mm3 Baso # (Auto) (0.0-0.1) K/mm3 Abs Immat Gran (auto) (0.00-0.031) K/mm3 Absolute Neuts (auto) (1.3-6.7) K/mm3 Absolute Nucleated RBC (0.0-0.012) K/mm3 Band Neutrophils % Nucleated RBC % (0.0-0.2) % Platelet Estimate (Adequate) Large Platelets Hypochromasia Anisocytosis Microcytosis (NORMAL) Ovalocytes Schistocytes PT (11.1-14.7) Seconds INR APTT (22.3-36.8) Seconds Methemoglobin (0-1.5) %THb Expiratory Pressure cmH2O Inspiratory Pressure cmH2O Sodium (137-145) mmol/L Potassium (3.4-5.0) mmol/L Chloride (98-107) mmol/L Carbon Dioxide (22-30) mmol/L Anion Gap (4-12) mmol/L BUN (9-20) mg/dL Creatinine (0.7-1.3) mg/dL Estim Creat Clear Calc ml/min Estimated GFR (59 - ) Glucose (65-110) mg/dL Lactic Acid 1.6 (0.7-2.0) mmol/L Calcium (8.4-10.2) mg/dL Magnesium (1.6-2.3) mg/dL Total Bilirubin (0.2-1.3) mg/dL AST (17-59) U/L ALT (6-50) U/L Alkaline Phosphatase (38-126) U/L Troponin I 0.066 H* (0.000-0.034) ng/mL NT-Pro-B Natriuret Pep (19.9-100) pg/mL Total Protein (6.3-8.2) g/dL Albumin (3.5-5.1) g/dL Nasal MRSA (PCR) (NOT DETECTE) Influenza A (RT-PCR) (Negative) Influenza B (RT-PCR) (Negative) RSV (RT-PCR) (Negative) SARS-CoV-2 RNA (RT-PCR) (Negative) <Marimar Niño PA-C - Last Filed: 11/27/24 18:35> Lab Results 11/27/24 11/27/24 11/27/24 Range/Units 10:28 10:28 10:33 WBC 15.0 H (4.5-10.0) K/mm3 RBC 4.03 L (4.6-6.20) M/mm3 Hgb 9.5 L (14.0-18.0) g/dL Hct 33.2 L (42.0-52.0) % MCV 82.4 (80-100) fl MCH 23.6 L (26-34) pg MCHC 28.6 L (32-36) g/dl RDW 21.2 H (11.5-14.5) % Plt Count 390 H (150-375) k/mm3 MPV 8.3 (7.4-10.4) fl Immature Gran % (Auto) 1.6 H (0-0.5) % Neut % (Auto) 88.1 H (45.5-73.1) % Lymph % (Auto) 4.5 L (18.3-44.2) % Hooker % (Auto) 5.3 (2.6-8.5) % Eos % (Auto) 0.4 (0-4.4) % Baso % (Auto) 0.1 L (0.2-1.2) % Lymph # (Auto) 0.67 L (0.9-3.2) K/mm3 Hooker # (Auto) 0.8 H (0.1-0.6) K/mm3 Eos # (Auto) 0.1 (0-0.3) K/mm3 Baso # (Auto) 0.0 (0.0-0.1) K/mm3 Abs Immat Gran (auto) 0.24 H (0.00-0.031) K/mm3 Absolute Neuts (auto) 13.2 H (1.3-6.7) K/mm3 Absolute Nucleated RBC 0.000 (0.0-0.012) K/mm3 Band Neutrophils % Not Reportable Nucleated RBC % 0.0 (0.0-0.2) % Platelet Estimate Increased (Adequate) Large Platelets Present Hypochromasia 1+ Anisocytosis 2+ Microcytosis 1+ (NORMAL) Ovalocytes 1+ Schistocytes None seen PT 16.0 H (11.1-14.7) Seconds INR 1.2 APTT 31.2 (22.3-36.8) Seconds Methemoglobin 0.1 (0-1.5) %THb Expiratory Pressure 6 cmH2O Inspiratory Pressure 12 cmH2O Sodium 138 (137-145) mmol/L Potassium 4.0 (3.4-5.0) mmol/L Chloride 99 (98-107) mmol/L Carbon Dioxide 32 H (22-30) mmol/L Anion Gap 7 (4-12) mmol/L BUN 19 (9-20) mg/dL Creatinine 0.91 (0.7-1.3) mg/dL Estim Creat Clear Calc 52 ml/min Estimated GFR > 60 (59 - ) Glucose 123 H (65-110) mg/dL Lactic Acid 2.6 H (0.7-2.0) mmol/L Calcium 9.0 (8.4-10.2) mg/dL Magnesium 2.3 (1.6-2.3) mg/dL Total Bilirubin 0.8 (0.2-1.3) mg/dL AST 36 (17-59) U/L ALT 28 (6-50) U/L Alkaline Phosphatase 108 (38-126) U/L Troponin I 0.065 H* (0.000-0.034) ng/mL NT-Pro-B Natriuret Pep 1790 H Cancelled (19.9-100) pg/mL Total Protein 7.0 (6.3-8.2) g/dL Albumin 3.2 L (3.5-5.1) g/dL Nasal MRSA (PCR) (NOT DETECTE) Influenza A (RT-PCR) (Negative) Influenza B (RT-PCR) (Negative) RSV (RT-PCR) (Negative) SARS-CoV-2 RNA (RT-PCR) (Negative) 11/27/24 11/27/24 11/27/24 Range/Units 10:34 10:48 11:38 WBC (4.5-10.0) K/mm3 RBC (4.6-6.20) M/mm3 Hgb (14.0-18.0) g/dL Hct (42.0-52.0) % MCV (80-100) fl MCH (26-34) pg MCHC (32-36) g/dl RDW (11.5-14.5) % Plt Count (150-375) k/mm3 MPV (7.4-10.4) fl Immature Gran % (Auto) (0-0.5) % Neut % (Auto) (45.5-73.1) % Lymph % (Auto) (18.3-44.2) % Hooker % (Auto) (2.6-8.5) % Eos % (Auto) (0-4.4) % Baso % (Auto) (0.2-1.2) % Lymph # (Auto) (0.9-3.2) K/mm3 Hooker # (Auto) (0.1-0.6) K/mm3 Eos # (Auto) (0-0.3) K/mm3 Baso # (Auto) (0.0-0.1) K/mm3 Abs Immat Gran (auto) (0.00-0.031) K/mm3 Absolute Neuts (auto) (1.3-6.7) K/mm3 Absolute Nucleated RBC (0.0-0.012) K/mm3 Band Neutrophils % Nucleated RBC % (0.0-0.2) % Platelet Estimate (Adequate) Large Platelets Hypochromasia Anisocytosis Microcytosis (NORMAL) Ovalocytes Schistocytes PT (11.1-14.7) Seconds INR APTT (22.3-36.8) Seconds Methemoglobin (0-1.5) %THb Expiratory Pressure cmH2O Inspiratory Pressure cmH2O Sodium (137-145) mmol/L Potassium (3.4-5.0) mmol/L Chloride (98-107) mmol/L Carbon Dioxide (22-30) mmol/L Anion Gap (4-12) mmol/L BUN (9-20) mg/dL Creatinine 1.10 (0.7-1.3) mg/dL Estim Creat Clear Calc 44 ml/min Estimated GFR > 60 (59 - ) Glucose (65-110) mg/dL Lactic Acid (0.7-2.0) mmol/L Calcium (8.4-10.2) mg/dL Magnesium (1.6-2.3) mg/dL Total Bilirubin (0.2-1.3) mg/dL AST (17-59) U/L ALT (6-50) U/L Alkaline Phosphatase (38-126) U/L Troponin I (0.000-0.034) ng/mL NT-Pro-B Natriuret Pep (19.9-100) pg/mL Total Protein (6.3-8.2) g/dL Albumin (3.5-5.1) g/dL Nasal MRSA (PCR) Not detected (NOT DETECTE) Influenza A (RT-PCR) Negative (Negative) Influenza B (RT-PCR) Negative (Negative) RSV (RT-PCR) Negative (Negative) SARS-CoV-2 RNA (RT-PCR) Negative (Negative) 11/27/24 Range/Units 12:58 WBC (4.5-10.0) K/mm3 RBC (4.6-6.20) M/mm3 Hgb (14.0-18.0) g/dL Hct (42.0-52.0) % MCV (80-100) fl MCH (26-34) pg MCHC (32-36) g/dl RDW (11.5-14.5) % Plt Count (150-375) k/mm3 MPV (7.4-10.4) fl Immature Gran % (Auto) (0-0.5) % Neut % (Auto) (45.5-73.1) % Lymph % (Auto) (18.3-44.2) % Hooker % (Auto) (2.6-8.5) % Eos % (Auto) (0-4.4) % Baso % (Auto) (0.2-1.2) % Lymph # (Auto) (0.9-3.2) K/mm3 Hooker # (Auto) (0.1-0.6) K/mm3 Eos # (Auto) (0-0.3) K/mm3 Baso # (Auto) (0.0-0.1) K/mm3 Abs Immat Gran (auto) (0.00-0.031) K/mm3 Absolute Neuts (auto) (1.3-6.7) K/mm3 Absolute Nucleated RBC (0.0-0.012) K/mm3 Band Neutrophils % Nucleated RBC % (0.0-0.2) % Platelet Estimate (Adequate) Large Platelets Hypochromasia Anisocytosis Microcytosis (NORMAL) Ovalocytes Schistocytes PT (11.1-14.7) Seconds INR APTT (22.3-36.8) Seconds Methemoglobin (0-1.5) %THb Expiratory Pressure cmH2O Inspiratory Pressure cmH2O Sodium (137-145) mmol/L Potassium (3.4-5.0) mmol/L Chloride (98-107) mmol/L Carbon Dioxide (22-30) mmol/L Anion Gap (4-12) mmol/L BUN (9-20) mg/dL Creatinine (0.7-1.3) mg/dL Estim Creat Clear Calc ml/min Estimated GFR (59 - ) Glucose (65-110) mg/dL Lactic Acid 1.6 (0.7-2.0) mmol/L Calcium (8.4-10.2) mg/dL Magnesium (1.6-2.3) mg/dL Total Bilirubin (0.2-1.3) mg/dL AST (17-59) U/L ALT (6-50) U/L Alkaline Phosphatase (38-126) U/L Troponin I 0.066 H* (0.000-0.034) ng/mL NT-Pro-B Natriuret Pep (19.9-100) pg/mL Total Protein (6.3-8.2) g/dL Albumin (3.5-5.1) g/dL Nasal MRSA (PCR) (NOT DETECTE) Influenza A (RT-PCR) (Negative) Influenza B (RT-PCR) (Negative) RSV (RT-PCR) (Negative) SARS-CoV-2 RNA (RT-PCR) (Negative) <Suzi Wahl MD - Last Filed: 11/28/24 10:48> ABG Data ABG results: 11/27/24 10:33 Puncture Site Right radial ABG pH 7.482 H ABG pCO2 36.3 ABG pO2 67.7 L ABG PO2/FiO2 Ratio 1.50 ABG HCO3 26.5 H ABG O2 Saturation 94.8 L ABG O2 Content 12.5 L ABG Base Excess 3.0 A-a Gradient 211.9 Oxyhemoglobin 92.3 Carboxyhemoglobin 1.7 Reduced Hemoglobin 5.9 H Total Hemoglobin 9.6 L O2 Delivery Device Bipap O2 Liters/Min Not Reportable FiO2 45 <Marimar Niño PA-C - Last Filed: 11/27/24 18:35> 11/27/24 10:33 Puncture Site Right radial ABG pH 7.482 H ABG pCO2 36.3 ABG pO2 67.7 L ABG PO2/FiO2 Ratio 1.50 ABG HCO3 26.5 H ABG O2 Saturation 94.8 L ABG O2 Content 12.5 L ABG Base Excess 3.0 A-a Gradient 211.9 Oxyhemoglobin 92.3 Carboxyhemoglobin 1.7 Reduced Hemoglobin 5.9 H Total Hemoglobin 9.6 L O2 Delivery Device Bipap O2 Liters/Min Not Reportable FiO2 45 <Suzi Wahl MD - Last Filed: 11/28/24 10:48> Imaging Data Attestation: I personally reviewed and interpreted this imaging study as follows: < Marimar Niño PA-C - Last Filed: 11/27/24 18:35> Radiologist's impression: ITS Impressions Chest CTA 11/27/24 11:13 IMPRESSION: 1. No pulmonary embolism. 2. Pneumonia in the right upper and lower lobes with pneumonia in the left upper lobe. 3. Large mass in the left lower lobe unchanged from previous examination. 4. Left pleural effusion. 5. Multiple Metastatic lesions in the liver. Chest X-Ray 11/27/24 16:48 IMPRESSION: Bilateral pneumonia. Underlying pulmonary edema is highly suggestive. Left pleural effusion. 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, Metastatic lung cancer (metastasis from lung to other site), Elevated troponin, Lactic acidosis Pneumonia Qualifiers: Pneumonia type: due to unspecified organism Laterality: left Lung location: u nspecified part of lung Qualified Code(s): J18.9 - Pneumonia, unspecified organism <ANÍBAL Lr Last Filed: 11/27/24 18:35> Patient Disposition: Acute Care Hospital <Marimar Niño PA-C - Last Filed: 11/27/24 18:35> Condition: Guarded Prognosis <Marimar Niño PA-C - Last Filed: 11/27/24 18:35> Patient Language: Ukrainian <ANÍBAL Lr Last Filed: 11/27/24 18:35> Prescriptions: No Action cyanocobalamin (vitamin B-12) 250 mcg tablet 250 mcg PO DAILY ferrous sulfate 325 mg (65 mg iron) tablet 325 mg PO DAILY lidocaine-prilocaine 2.5-2.5 % cream 1 applic topical ONCE mirtazapine 7.5 mg tablet 7.5 mg PO QHS omeprazole magnesium 20 mg tablet,delayed release (DR/EC) 20 mg PO DAILY ondansetron 8 mg tablet,disintegrating 8 mg PO ONCE dexamethasone 4 mg tablet 4 mg PO DAILY levofloxacin 750 mg tablet 750 mg PO DAILY Qty: 5 0RF ergocalciferol (vitamin D2) 1,250 mcg (50,000 unit) capsule 1,250 mcg PO WEEKLY Qty: 12 1RF Patient Comments: .. simvastatin 40 mg tablet 40 mg PO QHS Qty: 90 1RF Patient Comments: . metformin [Glucophage XR] 500 mg tablet extended release 24 hr 500 mg PO QPM Qty: 100 1RF escitalopram oxalate [Lexapro] 5 mg tablet 5 mg PO DAILY Qty: 90 0RF <Marimar Niño PA-C - Last Filed: 11/27/24 18:35> Follow-up/Referrals: Natalie Colni MD [Primary Care Provider] - <ANÍBAL Lr Last Filed: 11/27/24 18:35>
[2024-11-27 10:35] LABS: Estimated CRCL calculation 44 ml/min; Estimated Glomerular Filt Rate > 60
[2024-11-27 10:37] LABS: Basophils Percent Auto 0.1 % (0.2-1.2); Eosinophils Absolute Auto 0.1 K/mm3 (0-0.3); Eosinophils Percent Auto 0.4 % (0-4.4); Hematocrit 33.2 % (42.0-52.0); Hemoglobin 9.5 g/dL (14.0-18.0); Immature Granulocyte Absolute 0.24 K/mm3 (0.00-0.031); Immature Granulocyte Percent A 1.6 % (0-0.5); Lymphocytes Absolute Auto 0.67 K/mm3 (0.9-3.2); Lymphocytes Percent Auto 4.5 % (18.3-44.2); Mean Corpuscular HGB Conc 28.6 g/dl (32-36); Mean Corpuscular Hemoglobin 23.6 pg (26-34); Mean Corpuscular Volume 82.4 fl (80-100); Mean Platelet Volume 8.3 fl (7.4-10.4); Monocytes Absolute Auto 0.8 K/mm3 (0.1-0.6); Monocytes Percent Auto 5.3 % (2.6-8.5); Neutrophils Absolute Auto 13.2 K/mm3 (1.3-6.7); Neutrophils Percent Auto 88.1 % (45.5-73.1); Platelet Count Result 390 k/mm3 (150-375); Red Blood Count 4.03 M/mm3 (4.6-6.20); Red Cell Distribution Width 21.2 % (11.5-14.5)
[2024-11-27 10:47] LABS: Alanine Aminotransferase 28 U/L (6-50); Albumin Level 3.2 g/dL (3.5-5.1); Alkaline Phosphatase 108 U/L (38-126); Anion Gap 7 mmol/L (4-12); Aspartate Amino Transferase 36 U/L (17-59); Bilirubin,Total 0.8 mg/dL (0.2-1.3); Blood Urea Nitrogen 19 mg/dL (9-20); Carbon Dioxide 32 mmol/L (22-30); Chloride 99 mmol/L (98-107); Estimated CRCL calculation 52 ml/min; Estimated Glomerular Filt Rate > 60; Glucose 123 mg/dL (65-110); Lactic Acid Reflex 2.6 mmol/L (0.7-2.0); Magnesium 2.3 mg/dL (1.6-2.3); Sodium 138 mmol/L (137-145)
[2024-11-27 10:47] LABS: Alveolar/Arterial O2 Gradient 211.9 mmHg; Carboxyhemoglobin 1.7 % THb (0-2.0); Device BIPAP; Fractional Inspired Oxygen 45 %; HCO3 ABG 26.5 mEq/l (22.0-26.0); Methemoglobin ABG 0.1 %THb (0-1.5); Modified Allen's Test Pass; Oxygen Content ABG 12.5 %vol (16.0-22.0); Oxygen Saturation ABG 94.8 % (95.0-100.0); Oxyhemoglobin 92.3 % THb (90.0-100.0); PCO2 ABG 36.3 mmHg (35.0-45.0); PO2 ABG 67.7 mmHg (80.0-100.0); Reduced Hemoglobin 5.9 %THb (0-5.0); Site Drawn RIGHT RADIAL; Total Hemoglobin 9.6 g/dL (12.0-18.0); pH ABG 7.482 (7.350-7.450)
[2024-11-27 10:48] LABS: Expiratory Pressure 6 cmH2O; Inspiratory Pressure 12 cmH2O
[2024-11-27 10:49] LABS: Platelet Estimate Increased (Adequate)
--- NOTE | 2024-11-27 10:49 | PCRCNOTE ---
ABG delayed due to nursing running labs.
[2024-11-27 10:50] LABS: Anisocytosis 2+; Hypochromasia 1+; INR 1.2; Large Platelets Present; Microcytosis 1+ (NORMAL); Ovalocytes 1+; Partial Thromboplastin Time 31.2 Seconds (22.3-36.8); Schistocytes None Seen
--- OUTSIDE RECORDS SUMMARY | 2024-11-27 10:53 | XMS_ITS | Encounter Summary ---
Author Organization [facility] Address [address] [place] [address] Care Team Providers Care Cone Examiner Name Role Phone Chaka Colin MD Primary Care Provider Encounter Details Date Type Department Care Team (Late st Contact Info) Description 11/26/2024 Orders Only [facility] Oncology and Hematology - [place] [address] [facility] [address] [place] [address] Agustin Brown MD [address] [facility] [address] [place] [address] Prostate cancer (CMS/HCC) Social History [...] on file 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 Gender Identity Not on file Sexual Orientation Not on file documented as of this encounter Plan of Treatment Upcoming Encounters Date Type Department Care Team (Late st Contact Info) Description 11/28/2024 2:00 PM CDT Appointment Laci Jacobs [facility] Radiation Therapy [address] [place] [address] Jono Edouard MD [address] [facility] [address] [place] [address] 11/30/2024 12:30 PM CDT Appointment Laci Jacobs [facility] Radiation Therapy [address] [place] [address] Jono Edouard MD [address] [address] 12/04/2024 12:30 PM CDT Appointment Laci Jacobs [facility] Radiation Therapy [address] [place] [address] Jono Edouard MD [address] [facility] [address] [address] 12/19/2024 9:00 AM CDT Office Visit [facility] Oncology and Hematology - [place] [address] [place] [address] Agustin Brown MD [address] [facility] [address] [place] [address] 01/18/2025 12:45 PM CDT Appointment [facility] Medicine MRI [address] [facility] [address] [place] [id number] Dianna Reid PA [address] [facility] [address] [place], [place] [id number] 01/21/2025 1:00 PM CDT Office Visit [facility] Neurosurgery - [facility] [address] [facility] [address] [place] [address] Ad Chang MD [address] [facility] [address] [address] -x0 (Work) documented as of this encounter Visit Diagnoses Diagnosis Prostate cancer (CMS/HCC) Malignant neoplasm of prostate documented in this encounter Care Teams Cone Examiner Relationship Specialty Start Date End Date Chaka Colin MD [address] [place] [address] [place] [address] PCP - General Family Practice 08/09/24 documented as of this encounter
--- OUTSIDE RECORDS SUMMARY | 2024-11-27 10:53 | XMS_ITS | Encounter Summary ---
Author Organization [facility] Address [address] [place] [address] Care Team Providers Care Inspector Final Assembly Electrical Name Role Phone Almas Stapleton MD Unavailable [phone] Alejandro Kellogg DO Primary Care Provider [phone] Encounter Details Date Type Department Care Team (Late st Contact Info) Description 08/13/2024 Lab Requisition [facility] - Pathology Lab [address] [place] [address] Preston Rowland MD [address] [address] Illness, unspecified Social History Tobacco Use Types Packs/Day Years Used Date Smoking Tobacco: Former Cigarettes 1 25 0 07/11/1971 - 07/11/1996 Smokeless Tobacco: Never Alcohol Use Standard Drinks/Week Comments Yes 22.5 (1 standard drink = 0.6 oz pure alcohol) 2 drinks/day Sex and Gender Information Value Date Recorded Sex Assigned at Not on file 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 Gender Identity Not on file Sexual Orientation Not on file documented as of this encounter Plan of Treatment Pending Results Name Type Priority Associated Diagnoses Date /Time SLIDE PREP HISTOLOGY Pathology Cytology Routine Illness, unspecified 08/10/2024 documented as of this encounter Visit Diagnoses Diagnosis Illness, unspecified documented in this encounter Care Teams Inspector Final Assembly Electrical Relationship Specialty Start Date End Date Alejandro Kellogg DO [facility] [place] [address] PCP - General 02/23/22 Almas Stapleton MD Orthopedic Surgery 09/01/11 documented as of this encounter
--- OUTSIDE RECORDS SUMMARY | 2024-11-27 10:53 | XMS_ITS | Encounter Summary ---
Author Organization [facility] Address [address] [place] [address] Care Team Providers Care Ssds Mk 2 Advanced Operator Name Role Phone Almas Stapleton MD Unavailable [phone] Alejandro Kellogg DO Primary Care Provider [phone] Encounter Details Date Type Department Care Team (Late st Contact Info) Description 08/16/2024 Lab Requisition [facility] - Pathology Lab [address] [place] [address] Preston Rowland MD [address] [address] Illness, unspecified Social History Tobacco Use Types Packs/Day Years Used Date Smoking Tobacco: Former Cigarettes 1 25 0 07/11/1971 - 07/11/1996 Smokeless Tobacco: Never Alcohol Use Standard Drinks/Week Comments Yes 22.5 (1 standard drink = 0.6 oz pure alcohol) 2 drinks/day Sex and Gender Information Value Date Recorded Sex Assigned at Not on file 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 Gender Identity Not on file Sexual Orientation Not on file documented as of this encounter Plan of Treatment Pending Results Name Type Priority Associated Diagnoses Date /Time SLIDE PREP HISTOLOGY Pathology Cytology Routine Illness, unspecified 08/10/2024 documented as of this encounter Visit Diagnoses Diagnosis Illness, unspecified documented in this encounter Care Teams Ssds Mk 2 Advanced Operator Relationship Specialty Start Date End Date Alejandro Kellogg DO [facility] [place] [address] PCP - General 02/23/22 Almas Stapleton MD Orthopedic Surgery 09/01/11 documented as of this encounter
--- OUTSIDE RECORDS SUMMARY | 2024-11-27 10:53 | XMS_ITS | Clinical Summary ---
Author Organization [facility] Address [address] [place] [address] Care Team Providers Care Clinical Trials Data Coordinator Name Role Phone Chaka Colin MD Primary Care Provider Allergies No known active allergies Medications ondansetron (ZOFRAN ODT) 8 mg Tablet, Rapid Dissolve Dissolve 1 tablet on top of tongue then swallow with saliva every 8 hours as needed for nausea or vomiting 30 Tablet 1 5 Active lidocaine-pril ocaine (EMLA) 2.5-2.5 % Cream Apply a quarter amount to port site 30 minutes before access. 30 Gram 1 5 Active abiraterone (ZYTIGA) 250 mg tablet Take 2 Tablets (500 mg) by mouth daily before breakfast. 60 Tablet 4 5 Active sertraline (Zoloft) 50 mg tablet Take 1 Tablet (50 mg) by mouth daily. 60 Tablet 2 5 Active Additional Information Patient taking differently:50 mg Oral DAILY,1/2 tablet, Reported on 11/07/2024 omeprazole (PriLOSEC) 20 mg Capsule, Delayed Release(E.C.) Take 20 mg by mouth daily. Active ferrous sulfate 325 mg (65 mg iron) tablet Take 325 mg by mouth daily. Active simvastatin (ZOCOR) 5 mg tablet Take 40 mg by mouth daily with supper. Active cyanocobalamin (VITAMIN B-12) 250 mcg Tablet Take 250 mcg by mouth daily. Active ergocalciferol (VITAMIN D2) 50,000 unit capsule Take 50,000 Units by mouth every 7 days. Tuesday Active Sodium Chloride 1,000 mg Tablet, Soluble Take 1 Tablet (1,000 mg) by mouth every 8 hours. 90 Tablet 10/30/2024 4:24 PM CDT Active levETIRAcetam (Keppra) 500 mg tablet Take 1 Tablet (500 mg) by mouth 2 times daily. 30 Tablet 5 Active mirtazapine (REMERON) 7.5 mg tablet Take 1 Tablet (7.5 mg) by mouth daily at bedtime. 30 Tablet 1 5 Active dexAMETHasone (DECADRON) 4 mg tablet Take 1 Tablet (4 mg) by mouth 2 times daily. 60 Tablet 2 5 Active predniSONE (DELTASONE) 5 mg tablet Take 1 Tablet (5 mg) by mouth 2 times daily with meals. 60 Tablet 4 5 025 Discontinu ed(Alterna te therapy prescribed ) dexAMETHasone (DECADRON) 2 mg tablet Take 1 Tablet (2 mg) by mouth 3 times daily for 2 days, THEN 1 Tablet (2 mg) 2 times daily for 2 days, THEN 1 Tablet (2 mg) daily for 2 days. 12 Tablet 10/30/2024 4:24 PM CDT 5 025 levETIRAcetam (Keppra) 500 mg tablet Take 1 Tablet (500 mg) by mouth 2 times daily. 30 Tablet 10/30/2024 4:24 PM CDT 5 025 Discontinu ed(Reorder ) mirtazapine (REMERON) 7.5 mg tablet Take 1 Tablet (7.5 mg) by mouth daily at bedtime. 30 Tablet 1 10/30/2024 4:24 PM CDT 5 025 Discontinu ed(Reorder ) Active Problems Problem Noted Date Diagnosed Date [...] Encounters Date Type Department Care Team Description 11/26/2024 2:23 PM CDT - 11/26/2024 11:59 PM CDT Hospital Encounter [facility] Radiation Therapy [address] [place] [address] Jono Edouard MD Arrived Discharge Disposition: Home or Self Care 11/26/2024 Orders Only [facility] Oncology and Hematology - [place] [address] [place] [address] Agustin Brown MD Prostate cancer (CMS/HCC) 11/22/2024 8:00 AM CDT - 11/22/2024 11:59 PM CDT Hospital Encounter [facility] [address] [place] [address] Jono Edouard MD Discharge Disposition: Home or Self Care 11/22/2024 Orders Only [facility] Oncology and Hematology - [place] [address] [place] [address] Agustin Brown MD Need for hepatitis B screening test (Primary Dx) 11/21/2024 6:00 AM CDT - 11/21/2024 11:59 PM CDT Hospital Encounter [facility] [address] [place] [address] Discharge Disposition: Home or Self Care 2024 4:30 PM CDT Telephone Check Up [facility] Oncology and Hematology [facility] [address] [place] [address] Agustin Brown MD 2024 External Device Data STL ABSTRACTION Provider, Abstract 11/19/2024 Specialty Pharmacy [facility] [place] [address] Abbie Garcia, PHARMACIST 11/19/2024 Orders Only [facility] Oncology and Hematology - [place] [address] [place] [address] Agustin Brown MD Prostate cancer (CMS/HCC) 11/13/2024 1:49 PM CDT - 11/13/2024 11:59 PM CDT Hospital Encounter [facility] MRI [address] [place] [address] Jono Edouard MD Discharge Disposition: Home or Self Care 11/13/2024 12:46 PM CDT - 11/13/2024 11:59 PM CDT Hospital Encounter [facility] Radiation Therapy [address] [place] [address] Jono Edouard MD Discharge Disposition: Home or Self Care 11/12/2024 Orders Only [facility] Oncology and Hematology [facility] [address] [place] [address] Agustin Brown MD Prostate cancer (CMS/HCC) 11/09/2024 Telephone [facility] Neurosurgery - [facility] [place] [address] [facility] [address] [place] [address] Dianna Reid PA Follow Up 11/07/2024 2:30 PM CDT Office Visit [facility] Neurosurgery - [facility] [place] [address] [facility] [address] [place] [address] Dianna Reid PA Postoperative visit (Primary Dx); 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) 11/07/2024 9:15 AM CDT Office Visit [facility] Oncology and Hematology [place] [address] [place] [address] Agustin Brown MD 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); Prostate cancer (CMS/HCC) 11/07/2024 Orders Only [facility] Oncology and Hematology - [place] [address] [place] [address] Agustin Brown MD 11/06/2024 Orders Only [facility] Radiation Therapy [address] [place] [address] Jono Edouard MD 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) 11/05/2024 Orders Only [facility] Oncology and Hematology [facility] [address] [place] [address] Agustin Brown MD Prostate cancer (CMS/HCC) 11/01/2024 Abstract [facility] Neurosurgery - [facility] [place] [address] [facility] [address] [place] [address] Ad Chang MD 11/01/2024 Telephone [facility] Neurosurgery - [facility] [place] [address] [facility] [address] [place] [address] Provider, Abstract s/p crainiotomy 10/31/2024 3:28 PM CDT - 10/31/2024 11:59 PM CDT Hospital Encounter [facility] Imaging Services [facility] [address] [facility] [place] [address] Saima Owens, PA Discharge Disposition: Home or Self Care 10/31/2024 Telephone [facility] Oncology and Hematology [facility] [address] [address] [place] [address] Miguelito Reinoso MD Information 10/31/2024 Telephone [facility] [address] [facility] [address] [place] [address] Ad Chang MD question 10/30/2024 External Device Data STL ABSTRACTION Provider, Abstract 10/30/2024 External Device Data STL ABSTRACTION Provider, Abstract 10/30/2024 External Device Data STL ABSTRACTION Provider, Abstract 10/29/2024 Orders Only [facility] Oncology and Hematology [facility] [address] [place] [address] Agustin Brown MD Metastasis to brain ([facility]/HCC) (Primary Dx); Prostate cancer ([facility]/HCC) 10/28/[address] [facility] Medical Telemetry [address] [place] [address] Jg Jean-Baptiste PA 10/26/2024 7:00 AM CDT Anesthesia Event [facility] Operating Room [address] [place] [address] Joseph Quijano MD Berner, Christopher D, ANASTACIA-C 10/26/2024 6:45 AM CDT - 10/26/2024 11:00 AM CDT Surgery [facility] [address] [place] [address] Ad Chang MD CRANIOTOMY STEREOTACTIC 10/24/2024 Abstract [facility] Neurosurgery - [facility] [address] [facility] [address] [place] [address] Ad Chang MD 10/24/2024 Orders Only [facility] Neurosurgery - [facility] [address] [facility] [address] [place] [address] Ad Chang MD 10/24/2024 Orders Only [facility] Oncology [facility] Hematology - [place] [address] [facility] [address] [address] Agustin Brown MD 10/23/2024 7:35 PM CDT - 10/30/2024 4:16 PM CDT Hospital Encounter [facility] Neurosurgery [address] [place] [address] Zoya Vargas MD Long, MD Iza Pack, MD Chery Tafoya Nisha, MD Kenguva, Venkata, MD Sermadevi, MD Malinda Pederson Senthil, MD Nuspl, DO Junior Buckner Karen, MD Metastasis to brain ([facility]/HCC) Discharge Disposition: Home or Self Care 10/23/2024 Travel 10/23/2024 [facility] Only [facility] Oncology and Hematology - [place] [address] [place] [address] Agustni Brown MD Cerebrovascular accident (CVA), unspecified mechanism (CMS/HCC) (Primary Dx) 10/22/2024 Orders Only [facility] Oncology and Hematology - [place] [address] [place] [address] Agustin Brown MD Cerebrovascular accident (CVA), unspecified mechanism (CMS/HCC) (Primary Dx); Prostate cancer (CMS/HCC) 10/17/2024 Orders Only [facility] Oncology and Hematology - [place] [address] [place] [address] Agustin Brown MD 10/16/2024 9:45 AM CDT Office Visit [facility] Oncology and Hematology - [place] [address] [place] [address] Agustin Brown MD Prostate cancer (CMS/HCC) (Primary Dx) 10/16/2024 Orders Only [facility] Oncology and Hematology - [place] [address] Agustin Brown MD 10/15/2024 Refill [facility] Oncology and Hematology - [place] [address] [place] [phone] Agustin Brown MD 10/15/2024 Orders Only [facility] Oncology and Hematology - [place] [address] [place] [phone] Agustin Brown MD Prostate cancer (CMS/HCC) 10/09/2024 9:30 AM CDT Office Visit [facility] Oncology and Hematology - [place] [address] [place] [address] Agustin Brown MD Prostate cancer (CMS/HCC) (Primary Dx) 10/09/2024 Orders Only [facility] Oncology and Hematology - [place] [address] [place] [address] Agustin Brown MD Prostate cancer (CMS/HCC) (Primary Dx) 10/09/2024 Telephone [facility] Oncology and Hematology - [place] [address] [place] [address] Agustin Brown MD Fatigue 10/01/2024 Orders Only [facility] Oncology and Hematology - [place] [address] [place] [address] Agustin Brown MD Prostate cancer ([facility]/HCC) 09/27/2024 Orders Only [facility] Oncology and Hematology - [place] [address] [place] [phone] Agustin Brown MD 09/26/2024 External Device Data STL ABSTRACTION Provider, Abstract 09/25/2024 Specialty Pharmacy [facility] [address] [place] [address] [place] [address] Lina Quintanilla, PHARMACIST Specialty Pharmacy Clinical Assessment 09/25/2024 Specialty Pharmacy [facility] [address] [place] [address] Michelle Ruiz, PHARMACIST Specialty Pharmacy Refill Coordination 09/20/2024 Abstract [facility] Oncology and Hematology - [place] [address] [place] [address] Agustin Brown MD 09/19/2024 Refill [facility] Oncology and Hematology - [place] [address] [place] [address] Agustin Brown MD 09/18/2024 Orders Only [facility] Oncology and Hematology - [place] [address] [place] [address] Agustin Brown MD Prostate cancer ([facility]/HCC) (Primary Dx) 09/18/2024 Refill [facility] Oncology and Hematology - [place] [address] [place] [address] Agustin Brown MD 09/18/2024 [facility] Oncology and Hematology - [place] [address] [place] [address] Agustin Brown MD 09/15/2024 External Device Data [...] on file 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 Gender Identity Not on file Sexual [...] 11/28/2024 2:00 PM CDT Appointment [facility] Radiation Therapy [address] [place] [address] Jono Edouard MD [address] [id number] 11/30/2024 12:30 PM CDT Appointment [facility] Radiation Therapy [address] [place] [address] Jono Edouard MD [address] [id number] 12/04/2024 12:30 PM CDT Appointment [facility] Radiation Therapy [address] [place] [address] Jono Edouard MD [address] [address] 12/19/2024 9:00 AM CDT Office Visit [facility] Oncology and Hematology - [place] [address] [address] Agustin Brown MD [address] [facility] [address] [place] [address] 01/18/2025 12:[address] [facility] Medicine MRI [address] [facility] [address] [place] [address] Dianna Reid PA [address] [facility] [address] [place] [address] 01/21/2025 1:00 PM CDT Office Visit [facility] Neurosurgery - [facility] [place] [address] [facility] [address] [place] [address] Ad Chang MD [address] [facility] [address] [address] -x0 (Work) Health Maintenance Due Date Last [...] 04/28/2025 10/27/2024 Medical Devices Implanted Type Area Production Shift Supervisor Device Identifier Shelf Expiration Date Model / Serial / Lot Duragen + 3x3in Dp-1033 - [id number] Implanted:Qty: 1 on 10/26/2024 by Ad Chang MD at [facility] Graft Right: Cranial [employer] 04/09/2027 [id number] / / [id number] Agent Hemostat Surgicel 4x8in - [id number] Implanted:Qty: 1 on 10/26/2024 by Ad Chang MD at [facility] Hemostatic Right: Cranial J[employer]- [employer] [id number] 05/10/2029 1952S / / [id number] Hemostatic Surgicel 1x2in 1960 - [id number] Implanted:Qty: 1 on 10/26/2024 by Ad Chang MD at [facility] Hemostatic Right: Cranial J&J- [employer] [id number] 03/10/20271 / / [id number] Hemostatic Surgiflo 8ml W/ Thrombin 2994 - [id number] Implanted:Qty: 1 on 10/26/2024 by Ad Chang MD at [facility] Hemostatic Right: Cranial J&J- [employer] [id number] 01/07/2026 2994 / / [id number] Plate Matrxneuro Frame 502.065 - [id number] Implanted:Qty: 2 on 10/26/2024 by Ad Chang MD at [facility] Plate Right: Cranial J&J- DEPUY SYNTHES .502.0 65 / / Plate Matrxneuro Bur Hl Cvr .021 - [id number] Implanted:Qty: 2 on 10/26/2024 by Ad Chang MD at [facility] Plate Right: Cranial J&J- DEPUY SYNTHES .502.0 21 / / Description:REQ [id number] Screw Matrixneuro Sd .104.01 - [id number] Implanted:Qty: 16 on 10/26/2024 by Ad Chang MD at [facility] Screw Right: Cranial J&J- DEPUY SYNTHES .503.1 04.01 / / Screw Matrixneuro Sd 503.105.01 - [id number] Implanted:Qty: 1 on 10/26/2024 by Ad Chang MD at 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) [facility] NORMAL BLOOD Routine 8:43 AM [...] LYTES, GLUC) Routine 10/26/2024 7:52 AM CDT DC ANES INSERT CATH, ART, PERCUT, SHORTTERM Routine 10/26/2024 7:35 AM CDT DC ANES INSERT ENDOTRACHEAL AIRWAY Routine 10/26/2024 7:12 AM CDT POC GLUCOSE Routine 10/26/2024 6:51 AM CDT DC CRNEC TREPH BONE FLAP CRNOT EXC BRAIN [...] described above DICTATION LOCATION: Location 1 - [facility] Narrative 11/13/2024 2:40 PM CDT EXAMINATION: MRI [...] described above DICTATION LOCATION: Location 1 - [facility] us Jono Edouard MD MR ORDERABLES Final Result * [facility] (11/07/2024 9:18 PM CDT) Reason for Study To identify mutations relevant to patient's cancer. 11/07/2024 9:18 PM CDT [facility] Genetic Diseases Assessed Cancer 11/07/2024 9:18 PM CDT [facility] Description of Ranges of DNA Sequences Examined 523 gene liquid biopsy 11/07/2024 9:18 PM CDT [facility] Overall Interpretation positive 11/07/2024 9:18 PM CDT [facility] [email or web address] m/[email or web address] [id number] [id number] 11/07/2024 9:18 PM CDT [facility] Comment:[facility] link Low Coverage Regions BAX, BCR, CARM1, CUL4A, DNMT1, GNA11, MAPK1, MAPK3, MSH3, NFE2L2, NOTCH1, NOTCH2, PHLPP2, PIK3R2, PRKN, PTPRT, RAD51C, RHOA, RXRA, SDHAF2, TERT, TGFBR1, TP53, ZNRF3 11/07/2024 9:18 PM CDT [facility] Tumor Mutational [place] 5.0 m/MB 11/07/2024 9:18 PM CDT [facility] Microsatellite Instability Note MSI-High not detected 11/07/2024 9:18 PM CDT [facility] Treatment Implications Note No reportable treatment options found. 11/07/2024 9:18 PM CDT [facility] Blood specimen (specimen) 10/31/2024 3:39 PM CDT Narrative This result has genomic variants that were not included in this document. us Miguelito Reinoso MD MOLECULAR ORDERABLES Final Result [facility] [address], [address] [place] [address], [facility] [address], [address] [place] [address] * BASIC METABOLIC PANEL (11/07/2024 4:08 PM CDT) Only the most recent of10 resultswithin the time period is included. Blood us Agustin Brown MD CHEMISTRY ORDERABLES Final Resu lt * CBC MIXED CELL DIFFERENTIAL (11/07/2024 3:19 PM CDT) Blood Agustin Brown MD HEMATOLOGY [...] the craniotomy, likely postoperative. DICTATION LOCATION: Location [address] [place] [address] A [facility] message has been communicated to SAIMA OWENS via the Palmap Critical Results application on 10/31/2024 3:46 PM, Message ID [id number]. Narrative 10/31/2024 3:49 PM CDT Examination: Head [...] of33 resultswithin the time period is included. [facility] GLUCOSE POC 137(H) 74 - 99 mg/dL 10/30/2024 11:38 AM CDT [facility] SPECIMEN SOURCE, GLUCOSE POC Whole Blood 10/30/2024 11:38 AM CDT [facility] COMMENT, GLU POC Notified RN/MD 10/30/2024 11:38 AM CDT [facility] Blood, whole 10/30/2024 11:3 8 AM CDT 10/30/2024 11:45 AM CDT Denice Pacheco MD POINT OF CARE TESTING Final Resu lt Performing Organization Address City/[facility]/ZIP Co de Phone Number [facility] CLIA# [id number] [address] [address] * [facility] NORMAL BLOOD (10/30/2024 8:43 AM CDT) [facility] 10/30/2024 11:01 PM CDT [facility] Comment:See NGS Report for R esults. Blood specimen (specimen) 10/30/2024 8:43 AM CDT 10/30/2024 8:45 AM CDT Miguelito Reinoso MD MOLECULAR ORDERABLES Final Result [facility] [address] [facility], [address] [place] [address], [facility] [address] [facility], [address] [place] [address] * [facility] DNA AND RNA SOLID TUMOR (10/30/2024 8:43 AM CDT) Reason for Study To identify somatic and germline mutations relevant to patient's cancer. 11/19/2024 6:23 PM CDT [facility] Genetic Diseases Assessed Cancer 11/19/2024 6:23 PM CDT [facility] Description of Ranges of DNA Sequences Examined 648 gene panel 11/19/2024 6:23 PM CDT [facility] Overall Interpretation positive 11/19/2024 6:23 PM CDT [facility] MSI Stable 11/19/2024 6:23 PM CDT [facility] TMB 7.9 m/MB 11/19/2024 6:23 PM CDT [facility] [email or web address] ta [email or web address]/pat [email or web address] [id number] 11/19/2024 6:23 PM CDT [facility] Comment:[facility] link MMR Overall Result normal 11/19/2024 6:23 PM CDT [facility] MLH1 Presence or Absence present 11/19/2024 6:23 PM CDT [facility] PMS2 Presence or Absence present 11/19/2024 6:23 PM CDT [facility] MSH2 Presence or Absence present 11/19/2024 6:23 PM CDT [facility] MSH6 Presence or Absence present 11/19/2024 6:23 PM CDT [facility] PD-L1 Interpretation by 22C3 negative 11/19/2024 6:23 PM CDT [facility] PD-L1 (22C3) Combined Positive Score <1 11/19/2024 6:23 PM CDT [facility] PD-L1 (22C3) Tumor Proportion Score <1 % 11/19/2024 6:23 PM CDT [facility] Low Coverage Regions TGFBR1 11/19/2024 6:23 PM CDT [facility] Therapy Count 1 11/19/2024 6:23 PM CDT [facility]: Potential Therapy 1 Gene: 8975^PIK3CA^HGNC Variant: p.E542K Match Type: snvIndel Match Type Description: PIK3CA p.E542K Agent: Alpelisib Drug Class: PI3K Inhibitor Tissue: Solid Tumors Association: Response Evidence Status: Clinical research Evidence ID: [id number] Evidence URL: https://www.ncbi.nlm.n ih.gov/pubmed/23180282 Evidence Title: Phosphatidylinositol 3-Kinase -Selective Inhibition With Alpelisib (HKB593) in PNN8XF-Ibmqnbs Solid Tumors: Results From the Bwdow-dv-Muddh Study - PubMed KDB Variant: Ivuw-rc-daithvlz Label: FDA Off Label FDA Approved?: Yes On label?: No 11/19/2024 6:23 PM CDT [facility] Trial Count 4 11/19/2024 6:23 PM CDT [facility]: Clinical Trial Match 1 Clinical Trial NCT ID: [id number] Clinical Trial Title: Targeted Therapy Directed by Genetic Testing in Treating Patients With Locally Advanced or Advanced Solid Tumors, The ComboMATCH Screening Trial Clinical Trial URL: https://clinicaltrials .gov/ct2/show/FAG66353 377 Clinical Phase: Phase 2 Clinical Trial Matches: PTEN deletion Clinical Trial Distance and Location: [address] [place], [place] 11/19/2024 6:23 PM CDT [facility] Tempus: Clinical Trial Match 2 Clinical Trial NCT ID: [id number] Clinical Trial Title: Iijiy-pf-Xyzhg Study of Mutant-selective PI3K Inhibitor, RLY-2608, As a Single Agent in Advanced Solid Tumor Patients and in Combination with Fulvestrant in Patients with Advanced Breast Cancer Clinical Trial URL: https://clinicaltrials .gov/ct2/show/NMO82712 432 Clinical Phase: Phase 1 Clinical Trial Matches: PIK3CA p.E542K mutation Clinical Trial Distance and Location: [address] [place], [place] 11/19/2024 6:23 PM CDT [facility] Tempus: Clinical Trial Match 3 Clinical Trial NCT ID: [id number] Clinical Trial Title: Pemetrexed Response in Relation to Tumor Alterations of Gene Status for the Treatment of Patients With Metastatic Urothelial Bladder Cancer and Other Solid Tumors Clinical Trial URL: https://clinicaltrials .gov/ct2/show/KFS93561 416 Clinical Phase: Phase 2 Clinical Trial Matches: KMT2D p.H313fs mutation, MTAP deletion Clinical Trial Distance and Location: [address] [place], [place] 11/19/2024 6:23 PM CDT [facility]us: Clinical Trial Match 4 Clinical Trial NCT ID: [id number] Clinical Trial Title: Study Of ATRN-119 In Patients With Advanced Solid Tumors Clinical Trial URL: https://clinicaltrials .gov/ct2/show/NVH36668 914 Clinical Phase: Phase 1/Phase 2 Clinical Trial Matches: CDKN2A deletion, MTAP deletion, TP53 c.993+1G>T mutation Clinical Trial Distance and Location: [address] [place] [address] 11/19/2024 6:23 PM CDT [facility] xR Result 1 NEGATIVE Negative - This report is being issued to report the results of gene rearrangement and altered splicing analysis from RNA sequencing. No gene rearrangements nor reportable altered splicing events were identified from RNA sequencing. 11/19/2024 6:23 PM CDT [facility] Germline Variant Note No potential germline variants were found in the limited set of genes on which we report. 11/19/2024 6:23 PM CDT [facility] HER2 Result NEGATIVE 11/19/2024 6:23 PM CDT [facility] Score 0 11/19/2024 6:23 PM CDT [facility] Tissue specimen (specimen) 10/30/2024 8:43 AM CDT 11/06/2024 5:57 PM CDT Narrative This result has genomic variants that were not included in this document. Miguelito Reinoso MD MOLECULAR ORDERABLES Edite d Result - Final [facility] [address], [address] [place] [address], [facility] [address], [address] [place] [address] * (ABNORMAL) CBC WITHOUT DIFFERENTIAL (10/29/2024 7:03 AM CDT) Pathologist [facility] Department WBC 6.7 4.0 - 9.8 K/uL 10/29/2024 7:43 AM CDT [facility] LABORATORY SERVICES [facility] RBC 3.93(L) 4.50 - 5.40 M/uL 10/29/2024 7:43 AM CDT [facility] LABORATORY SERVICES - [facility] HEMOGLOBIN 9.4(L) 13.6 - 16.5 g/dL 10/29/2024 7:43 AM CDT [facility] LABORATORY SERVICES - . [facility] HEMATOCRIT 31.2(L) 40.0 - 48.0 % 10/29/2024 7:43 AM CDT [facility] LABORATORY SERVICES - . [facility] MCV 79.4(L) 82.0 - 99.0 fL 10/29/2024 7:43 AM CDT [facility] LABORATORY SERVICES - . [facility] MCH 23.9(L) 27.2 - 32.6 pg 10/29/2024 7:43 AM CDT [facility] LABORATORY SERVICES - . [facility] MCHC 30.1(L) 31.5 - 35.5 g/dL 10/29/2024 7:43 AM CDT [facility] LABORATORY SERVICES - . [facility] PLATELETS 199 140 - 350 K/uL 10/29/2024 7:43 AM T [facility] LABORATORY SERVICES - [facility] MPV 9.3 9.3 - 12.4 fL 10/29/2024 7:43 AM CDT [facility] LABORATORY SERVICES - . [facility] RDW 20.6(H) 11.5 - 14.5 % 10/29/2024 7:43 AM T [facility] LABORATORY SERVICES - [facility] RDW-STDEV 55.9(H) 37.1 - 48.7 fL 10/29/2024 7:43 AM T [facility] LABORATORY SERVICES - [facility] Blood Venipuncture / Unknown 10/29/2024 7:03 AM CDT 10/29/2024 7:21 AM CDT us Uyen Boyer DO HEMATOLOGY ORDERABLES Final Result [facility] [employer] SERVICES [facility]# [id number] [address] [id number] * PSA (10/29/2024 7:03 AM CDT) PSA 0.4 <4.0 ng/mL 10/29/2024 1:39 PM CDT [facility] Blood Venipuncture / Unknown 10/29/2024 7:03 AM CDT 10/29/2024 7:21 AM CDT Narrative [facility] - 10/29/2024 1:39 PM CDT The concentration of PSA in a given specimen, as determined by assays from different manufacturers, can vary because of differences in assay methods and reagent specificity. Values obtained with different assay methods cannot be used interchangeably. The testing method in use is the BIJU Electrochemiluminescence Immunoassay. us Miguelito Reinoso MD CHEMISTRY ORDERABLES Final Result [facility] CLIA# [id number] [address] [place] [address] * MRI BRAIN W WO CONTRAST (10/27/2024 [...] previous exam. DICTATION LOCATION: Location 1 - [facility] Narrative 10/27/2024 10:00 PM CDT EXAMINATION: MRI [...] previous exam. DICTATION LOCATION: Location 1 - [facility] Uyen Rosales Merlin DO MR ORDERABLES Final Result * MANUAL DIFFERENTIAL (10/27/2024 3:39 AM CDT) Only the most recent of3 resultswithin the time period is included. PLATELET EST. Consistent w Count 10/27/2024 5:37 AM CDT [facility] LABORATORY SERVICES - [facility] ANISOCYTOSIS 1+ /hpf 10/27/2024 5:37 AM CDT [facility] LABORATORY SERVICES - [facility] POIKILOCYTES 1+ /hpf 10/27/2024 5:37 AM CDT [facility] LABORATORY SERVICES - [facility] HYPOCHROMIA 1+ /hpf 10/27/2024 5:37 AM CDT [facility] LABORATORY SERVICES - [facility] OVALOCYTES 1+ /hpf 10/27/2024 5:37 AM CDT [facility] LABORATORY SERVICES - [facility] CRENATED RBCS Present 10/27/2024 5:37 AM CDT [facility] LABORATORY SERVICES - [facility] Blood Venipuncture / Unknown 10/27/2024 3:39 AM CDT 10/27/2024 3:42 AM CDT Chano Sykes MD HEMATOLOGY ORDERABLES COM Fin al Result [facility] [employer] SERVICES - [facility] CLIA# [id number] [address] [facility] [address] [address] * (ABNORMAL) CBC WITH DIFFERENTIAL (10/27/2024 3:39 AM CDT) Only the most recent of4 resultswithin the time period is included. WBC 7.4 4.0 - 9.8 K/uL 10/27/2024 4:01 AM T [facility] LABORATORY SERVICES - [facility] RBC 4.15(L) 4.50 - 5.40 M/uL 10/27/2024 4:01 AM [facility] LABORATORY [facility] - . [facility] HEMOGLOBIN 9.8(L) 13.6 - 16.5 g/dL 10/27/2024 4:01 AM T [facility] LABORATORY SERVICES - . [facility] HEMATOCRIT 32.5(L) 40.0 - 48.0 % 10/27/2024 4:01 AM T [facility] LABORATORY SERVICES - . [facility] MCV 78.3(L) 82.0 - 99.0 fL 10/27/2024 4:01 AM T [facility] LABORATORY SERVICES - . [facility] MCH 23.6(L) 27.2 - 32.6 pg 10/27/2024 4:01 AM T [facility] LABORATORY SERVICES - . [facility] MCHC 30.2(L) 31.5 - 35.5 g/dL 10/27/2024 4:01 AM [employer] LABORATORY SERVICES - [facility] RDW 20.3(H) 11.5 - 14.5 % 10/27/2024 4:01 AM [employer] LABORATORY SERVICES - [facility] RDW-STDEV 54.5(H) 37.1 - 48.7 fL 10/27/2024 4:01 AM [employer] LABORATORY SERVICES - . [facility] PLATELETS 222 140 - 350 K/uL 10/27/2024 4:01 AM [employer] LABORATORY SERVICES - . [facility] MPV 9.2(L) 9.3 - 12.4 fL 10/27/2024 4:01 AM [employer] LABORATORY SERVICES - . [facility] NEUTROPHILS 90 % 10/27/2024 4:01 AM [employer] LABORATORY SERVICES - . [facility] LYMPHOCYTES 3 % 10/27/2024 4:01 AM [employer] LABORATORY SERVICES - . [facility] MONOCYTES 6 % 10/27/2024 4:01 AM [employer] LABORATORY SERVICES - . [facility] EOSINOPHILS 0 % 10/27/2024 4:01 AM [employer] LABORATORY SERVICES - . [facility] BASOPHILS 0 % 10/27/2024 4:01 AM [employer] LABORATORY SERVICES - . [facility] IMMATURE GRANULOCYTES 1 % 10/27/2024 4:01 AM [employer] LABORATORY SERVICES - . [facility] Comment:IG (Immature Granulo cyte) count includes Metamyelocytes, Myelocytes, and Promyelocytes NEUTROPHIL ABSOLUTE 6.70 1.90 - 7.00 K/uL 10/27/2024 4:01 AM [employer] LABORATORY SERVICES - . [facility] LYMPHOCYTE ABSOLUTE 0.19(L) 0.70 - 4.50 K/uL 10/27/2024 4:01 AM [employer] LABORATORY SERVICES - . [facility] MONOCYTE ABSOLUTE 0.43 0.10 - 1.30 K/uL 10/27/2024 4:01 AM [employer] LABORATORY SERVICES - . [facility] EOSINOPHIL ABSOLUTE 0.01 0.00 - 0.70 K/uL 10/27/2024 4:01 AM [employer] LABORATORY SERVICES - . [facility] BASOPHILS ABSOLUTE 0.01 0.00 - 0.20 K/uL 10/27/2024 4:01 AM [employer] LABORATORY SERVICES - . [facility] IMMATURE GRANULOCYTES ABSOLUTE 0.09(H) 0.00 - 0.03 K/uL 10/27/2024 4:01 AM CDT [facility] LABORATORY [facility] Blood Venipuncture / Unknown 10/27/2024 3:39 AM CDT 10/27/2024 3:42 AM CDT Nicho Petty MD HEMATOLOGY ORDERABLES Final Result Performing Organization Address City/[facility]/ZIP Co de Phone Number [facility] CLIA# [id number] [address] [place] [address] * (ABNORMAL) PHOSPHORUS (10/27/2024 3:39 AM CDT) PHOSPHORUS 1.7(L) 2.5 - 4.5 mg/dL 10/27/2024 4:43 AM CDT [facility] LABORATORY [facility] Blood Venipuncture / Unknown 10/27/2024 3:39 AM CDT 10/27/2024 3:42 AM CDT Nicho Petty MD CHEMISTRY ORDERABLES Final R esult Performing Organization Address [facility] Co ia Phone Number [facility] CLIA# [id number] [address] [place] [address] * MAGNESIUM LEVEL (10/27/2024 3:39 AM CDT) MAGNESIUM 2.2 1.6 - 2.4 mg/dL 10/27/2024 4:43 AM CDT [facility] LABORATORY [facility] Blood Venipuncture / Unknown 10/27/2024 3:39 AM CDT 10/27/2024 3:42 AM CDT Nicho Petty MD CHEMISTRY ORDERABLES Final R esult Performing Organization Address City/[facility]/ZIP Co de Phone Number [facility] [employer] [facility] CLIA# [id number] [address] [place] [address] * (ABNORMAL) HEMOGLOBIN A1C (10/27/2024 3:39 AM CDT) Pathologist [facility] HEMOGLOBIN A1C 6.9(H) <5.7 % 10/27/2024 8:23 AM CDT [facility] LABORATORY [facility] EST. AVG GLUCOSE, A1C 151 mg/dL 10/27/2024 8:23 AM CDT [facility] Blood Venipuncture / Unknown 10/27/2024 3:39 AM CDT 10/27/2024 3:42 AM CDT Narrative [facility] LABORATORY [facility] - 10/27/2024 8:23 AM CDT HGB A1C INTERPRETATION NORMAL: <5.7% PRE-DIABETES: 5.7 - 6.4% DIABETES: 6.5% OR GREATER Nicho Petty MD CHEMISTRY ORDERABLES Final R esult [facility] CLIA# [id number] [address] [place] [address] * OSMOLALITY (10/26/2024 3:10 PM CDT) [facility] OSMOLALITY 288 275 - 300 mOsm/kg 10/26/2024 3:58 PM CDT [facility] Blood Venipuncture / Unknown 10/26/2024 3:10 PM CDT 10/26/2024 3:16 PM CDT Chano Sykes MD CHEMISTRY ORDERABLES Final Re sult [facility]# [id number] [address] [place] [address] * SODIUM, RANDOM URINE (10/26/2024 3:05 PM CDT) Pathologist [facility] SODIUM, URINE 32 mmol/L 10/26/2024 3:32 PM CDT [facility] Comment:Reference range not established Urine URINE SPECIMEN OBTAINED BY CLEAN CATCH PROCEDURE / Unknown Collection / Unknown 10/26/2024 3:05 PM CDT 10/26/2024 3:12 PM CDT Chano Sykes MD URINE ORDERABLES Final Result Performing Organization Address [facility]/ZIP Co de Phone Number [facility]# [id number] [address] [place] [address] * OSMOLALITY, URINE (10/26/2024 3:05 PM CDT) OSMOLALITY, URINE 335 50 - 1,200 mOsm/kg 10/26/2024 3:42 PM CDT [facility] Urine URINE SPECIMEN OBTAINED BY CLEAN CATCH PROCEDURE / Unknown Collection / Unknown 10/26/2024 3:05 PM CDT 10/26/2024 3:12 PM CDT Narrative [facility] - 10/26/2024 3:42 PM CDT Reference range: 50-1200 mOsm/kg H2O, depending on fluid intake. Chano Sykes MD URINE ORDERABLES Final Result Performing Organization Address [facility] Co de Phone Number [facility]# [id number] [address] [place] [address] * PATHOLOGY (10/26/2024 8:36 AM CDT) CASE REPORT Surgical Pathology Report Case: [id number] Authorizing Provider: Ad Chang MD Collected: 10/26/2024 08:36 AM Ordering Location: [facility] Received: 10/26/2024 09:48 AM Operating Room Pathologist: Melissa Louis MD Specimen: Brain, right frontal lobe mass 10:23 AM CDT [facility] ADDENDUM 1 A request for [employer] was received on 10/31/[address] Miguelito Reinoso. This test was performed on tissue from case [id number]. The case report, slides, and blocks for this case were retrieved from archives. The pathologist reviewed the original pathology report, examined candidate slides, and selected the most appropriate block(A2 and A3). This selected material was forwarded to [facility] where the test was performed. The final report will be issued directly to the requesting physician. 10:23 AM [facility] [employer] [facility] Addendum electronically signed by Melissa Louis MD on 11/05/2024 at 1023 CDT FINAL DIAGNOSIS Brain, right frontal lobe mass, craniotomy with resection (FS1/X): - Metastatic poorly differentiated carcinoma. 10:23 AM [facility] at 1621 CDT GROSS DESCRIPTION Received in [...] cassettes A2 and A3. KA 10:23 AM [facility] MICROSCOPIC DESCRIPTION The slides are labeled [id number] and Anne Elias. Sections show a metastatic [...] can be performed on request. 10:23 AM [facility] INTRAOPERATIVE CONSULTATION FS1-Brain, right frontal lobe mass-Malignant neoplasm, defer to permanent. The diagnosis was given to Dr. Chang on his cell phone by Dr. Conner Hernandez. 10:23 AM [facility] OPERATIVE PROCEDURE 1: Craniotomy stereotactic 10:23 AM [facility] CLINICAL INFORMATION 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) [C79.31] 10:23 AM [facility] COMMENT Special stain, immunohistochemical, and/or in situ hybridization results are interpreted with controls that demonstrate appropriate staining reactions. Note on use of immunohistochemistry reagents and in situ hybridization probes: These tests were developed and their performance characteristics determined by [facility] Department of Laboratory Medicine. [...] part or completely in the following laboratories: [facility], [place] #[id number] [address] [place] [address] [facility], [place] #[id number] [address] [place] [address] [facility], [place] #[id number] [place] [id number] This report was created with the [employer] voice-activated dictation system. Inherent to this system is the possibility of syntax, grammar, punctuation and other errors that could impact the interpretation of the report. If there are interpretative questions about aspects of this report, please contact the performing pathologist. 10:23 AM [facility] Tissue ENTIRE BRAIN / Unknown Collection / Unknown 10/26/2024 8:36 AM CDT 10/26/2024 9:48 AM CDT Ad Chang MD PATHOLOGY/CYTOLOGY ORDERABLE S Edited Result - Final Performing Organization Address [facility]/ZIP Co de Phone Number [facility] [facility] [id number] [address] [place] [address] * POC LACTIC ACID (10/26/2024 7:52 AM CDT) LACTIC ACID POC 1.3 <=2.0 mmol/L 10/26/2024 7:52 AM CDT [employer] LABORATORY SERVICES - [facility] SPECIMEN SOURCE, GASES POC Arterial 10/26/2024 7:52 AM CDT [employer] LABORATORY SERVICES [facility] COMMENT, GASES POC Responsible Clinical Caregiver notified 10/26/2024 7:52 AM CDT [facility] [employer] [facility] LAB[facility]ORY SERVICES - [facility] Blood 10/26/2024 7:52 AM CDT 10/26/2024 7:53 AM CDT Chano Sykes MD POINT OF CARE TESTING Final R esult Performing Organization Address [facility] Co de Phone Number [facility] [employer] [facility] CLIA# [id number] [address] [place] [address] * (ABNORMAL) BLOOD GAS,(INCL. H+H, LYTES, GLUC) (10/26/2024 7:52 AM CDT) Pathologist [facility] PH BLOOD POC 7.45 7.35 - 7.45 10/26/2024 7:52 AM CDT [employer] LABORATORY SERVICES [facility] PCO2 POC 40 35 - 48 mm Hg 10/26/2024 7:52 AM CDT [employer] LABORATORY SERVICES [facility] PO2 POC 168(H) 83 - 108 mm Hg 10/26/2024 7:52 AM CDT [employer] LABORATORY SERVICES [facility] TCO2 (CALC) POC 29(H) 19 - 24 mmol/L 10/26/2024 7:52 AM CDT [employer] LABORATORY [facility] HCO3 (CALC) POC 28(H) 22 - 26 mmol/L 10/26/2024 7:52 AM [facility] LABORATORY [facility] O2 SATURATION POC 100(H) 94 - 98 % 10/26/2024 7:52 AM [facility] LABORATORY [facility] BASE EXCESS POC 4(H) -2 - 3 mmol/L 10/26/2024 7:52 AM [facility] LABORATORY [facility] HEMOGLOBIN POC 9.9(L) 13.6 - 16.5 g/dL 10/26/2024 7:52 AM [facility] HEMATOCRIT POC 30(L) 40 - 48 % 10/26/2024 7:52 AM [facility] LABORATORY [facility] Comment:Estimated Value GLUCOSE POC 89 74 - 99 mg/dL 10/26/2024 7:52 AM [facility] LABORATORY [facility] SODIUM POC 132(L) 136 - 145 mmol/L 10/26/2024 7:52 AM [facility] POTASSIUM POC 4.5 3.5 - 5.0 mmol/L 10/26/2024 7:52 AM [facility] LABORATORY [facility] CHLORIDE POC 102 98 - 107 mmol/L 10/26/2024 7:52 AM [facility] LABORATORY [facility] CALCIUM IONIZED POC 4.6(L) 4.7 - 5.1 mg/dL 10/26/2024 7:52 AM [facility] LABORATORY [facility] PH TEMP CORRECT 7.45 7.35 - 7.45 10/26/2024 7:52 AM [facility] LABORATORY [facility] PCO2 TEMP CORRECT 40 35 - 48 mm Hg 10/26/2024 7:52 AM [facility] PO2 TEMP CORRECT 168(H) 83 - 108 mm Hg 10/26/2024 7:52 AM [facility] LABORATORY [facility] SPECIMEN SOURCE, GASES POC Arterial 10/26/2024 7:52 AM [facility] PATIENT'S TEMPERATURE POC 37.0 degrees 10/26/2024 7:52 AM [facility] LABORATORY [facility] COMMENT, GASES POC Responsible Clinical Caregiver notified 10/26/2024 7:52 AM CDT [facility] Blood, arterial 10/26/2024 7 :52 AM CDT 10/26/2024 7:53 AM CDT Chano Sykes MD ABG ORDERABLES Final Result [facility]# [id number] [address] [place] [address] * DC ANES INSERT CATH, ART, PERCUT, SHORTTERM (10/26/2024 [...] size: 20 G Catheter Length (in.): 4.5 [place] Identification: ultrasound guided Number of attempts: 1 Successful placement: yes Assessment: blood return through port Post-procedure: line secured and dressing applied Joseph Quijano MD PROCEDURE/MINOR SURGICAL ORDERAB LES Final Result * DC ANES INSERT ENDOTRACHEAL AIRWAY (10/26/2024 7:12 AM CDT) Narrative Meenu Dick AA-C - 10/26/2024 7:12 AM CDT Meenu Dick AA-C 10/26/2024 8:16 AM Airway Date/Time: 10/26/2024 7:12 AM Location: OR Plan: routine intubation Patient Identity Confirmed by: Verbally with patient and armband Airway: not difficult Staffing Performed: Student NA/AA Authorized by: Joseph Quijano MD Performed by: Meenu Dick, RAMESH Indications and Patient Condition: Indications for Airway [...] - 145 mmol/L 10/26/2024 7:17 AM T [employer] LABORATORY SERVICES - [facility] POTASSIUM 4.5 3.5 - 5.0 mmol/L 10/26/2024 7:17 AM T [employer] LABORATORY SERVICES - [facility] CHLORIDE 98 98 - 107 mmol/L 10/26/2024 7:17 AM T [employer] LABORATORY SERVICES - . [facility] CO2 27 22 - 29 mmol/L 10/26/2024 7:17 AM T [employer] LABORATORY SERVICES - . [facility] CALCIUM 8.8 8.6 - 10.2 mg/dL 10/26/2024 7:17 AM T [employer] LABORATORY SERVICES - . [facility] BUN 19 8 - 23 mg/dL 10/26/2024 7:17 AM T [employer] LABORATORY SERVICES - . [facility] CREATININE 0.54(L) 0.67 - 1.17 mg/dL 10/26/2024 7:17 AM [facility] Comment:The GFR result is no t clinically significant on patients <18 or >70 years of age. GLUCOSE 148(H) 74 - 99 mg/dL 10/26/2024 7:17 AM [facility] TOTAL PROTEIN 6.0(L) 6.7 - 8.6 g/dL 10/26/2024 7:17 AM [facility] ALBUMIN 3.3(L) 3.5 - 5.2 g/dL 10/26/2024 7:17 AM [facility] BILIRUBIN TOTAL 0.4 0.2 - 1.1 mg/dL 10/26/2024 7:17 AM [facility] ALKALINE PHOSPHATASE 81 40 - 129 U/L 10/26/2024 7:17 AM [facility] AST 17 <41 U/L 10/26/2024 7:17 AM [facility] ALT 31 <42 U/L 10/26/2024 7:17 AM [facility] GFR >60 mL/min/1.7 3 sq meter 10/26/2024 7:17 AM [facility] Comment:eGFR calculated with 2020 CKD-EPI equation. Vegetarian diet, extremely high or low muscle mass, and may affect results. Cystatin C with Glomerular Filtration Rate is a suitable alternative for these patients. ANION GAP 11 8 - 16 mmol/L 10/26/2024 7:17 AM [facility] Blood Venipuncture / Unknown 10/26/2024 6:13 AM CDT 10/26/2024 6:20 AM [facility] - 10/26/2024 7:17 AM [facility] Samples containing indocyanine green cause interferences on Total and/or Direct Bilirubin and must not be measured. us Ad Chang MD CHEMISTRY ORDERABLES Final R esult [facility]# [id number] [address] [place] [address] * VERIFICATION BLOOD GROUP (10/25/2024 2:44 PM CDT) ABO GROUP A 10/25/2024 3:44 PM CDT [facility] LABORATORY SERVICES -- [facility] RH (D) TYPE Positive 10/25/2024 3:44 PM CDT [facility] LABORATORY SERVICES -- [facility] Blood Venipuncture / Unknown 10/25/2024 2:44 PM CDT 10/25/2024 2:52 PM CDT Yi Farmer MD BLOOD BANK ORDERABLES Final Result Performing Organization Address [facility]/State/ZIP Co de Phone Number [facility] LABORATORY SERVICES -- [facility] CLIA# [id number] [address] [place] [address] * (ABNORMAL) PTT (10/25/2024 1:01 PM CDT) Pathologist [facility] PTT 23.9(L) 24.4 - 36.4 seconds 10/25/2024 1:27 PM CDT [facility] LABORATORY SERVICES - [facility] Comment: PTT Therapeutic Range: Heparin Level PTT (seconds) <0.10 units/mL <55.8 0.10 - 0.30 units/mL 55.8 - 74.3 0.30 - 0.70 units/mL* 74.3 - 111.2* 0.70 - 1.00 units/mL 111.2 - 138.9 *corresponds to therapeutic range for unfractionated heparin Blood Venipuncture / Unknown 10/25/2024 1:01 PM CDT 10/25/2024 1:06 PM CDT us Shahnaz GALAVIZ HEMATOLOGY ORDERABLES Final Result Performing Organization Address City/[facility]/ZIP Co de Phone Number [facility] [employer] [facility] CLIA# [id number] [address] [place] [address] * PROTIME-INR (10/25/2024 1:01 PM CDT) PROTIME 14.4 12.7 - 15.1 Seconds 10/25/2024 1:27 PM CDT [facility] INR 1.1 0.9 - 1.1 10/25/2024 1:27 PM CDT [facility] Blood Venipuncture / Unknown 10/25/2024 1:01 PM CDT 10/25/2024 1:06 PM CDT [facility] - 10/25/2024 1:27 PM CDT INR Therapeutic Range: Adult: 2.0 - 3.0 for pulmonary embolism or prophylaxis against venous thrombosis or systemic embolization. 2.0 - 3.0 for patients with tissue heart valves. 2.5 - 3.5 for patients with mechanical heart valves or post HI. Pediatric (12 years and under): 1.5 - 3.0 Although the target range in children is not well established, INR values of 1.5 - 3.0 are recommended for most patients. Higher values have been used in children with prosthetic cardiac valves and hereditary clotting disorders. (<3 days) therapeutic ranges have not been established. Shahnaz GALAVIZ HEMATOLOGY ORDERABLES Final Result [facility] LABORATORY SERVICES [facility]# [id number] [address] [facility] [place] [address] * TYPE AND SCREEN (10/25/2024 1:01 PM CDT) ABO GROUP A 10/25/2024 2:08 PM CDT [facility] LABORATORY SERVICES -- [facility] RH (D) TYPE Positive 10/25/2024 2:08 PM CDT [facility] LABORATORY SERVICES -- [facility] ANTIBODY SCREEN Negative 10/25/2024 2:08 PM CDT [facility] LABORATORY SERVICES -- [facility] Blood Venipuncture / Unknown 10/25/2024 1:01 PM CDT 10/25/2024 1:06 PM CDT us Shahnaz GALAVIZ BLOOD BANK ORDERABLES Edited Result - Final [facility] LABORATORY SERVICES -- 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 : 1945 Requested By: ZOYA VARGAS Order Number: [id number] Reading MD: Mabel Rosales Measurements Intervals [place] Rate: 73 P: 32 DC: 181 QRS: 40 QRSD: 106 T: 51 QT: 374 QTc: 412 Interpretive Statements SINUS RHYTHM WITH SINUS ARRHYTHMIA Electronically Signed On 10-26-2024 1:24:14 CDT by Mabel Rosales Procedure Note Mabel Rosales MD - 10/26/2024 [facility] [address] [place] [address] Test Date: 2024-10-25 Pat Name: ANNE ELIAS Department: 58 Room: [address] [place] [address] Gender: Male Instrument 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 DICTATION LOCATION: Location [address] [place] [address] 10/25/2024 8:23 AM CDT EXAMINATION: CT CHEST [...] lesions. INCIDENTAL FINDINGS: None. Procedure Note Isidro Hood DO - 10/25/2024 EXAMINATION: CT CHEST ABDOMEN [...] differential consideration. DICTATION LOCATION: Location 1 - [facility] Saima GALAVIZ CT ORDERABLES Final Result * (ABNORMAL) URINALYSIS WITH REFLEX MICROSCOPIC (10/24/2024 1:18 PM CDT) COLOR UA Yellow Pale to Dark Yellow 10/24/2024 1:32 PM CDT [employer] LABORATORY SERVICES - [facility] CLARITY UA Slightly Cloudy(A) Clear 10/24/2024 1:32 PM CDT [employer] LABORATORY SERVICES - . [facility] SPECIFIC GRAVITY UA 1.020 1.003 - 1.035 10/24/2024 1:32 PM CDT [employer] LABORATORY SERVICES - . [facility] PH UA 6.0 5.0 - 8.0 10/24/2024 1:32 PM CDT [employer] LABORATORY SERVICES - . [facility] LEUKOCYTE ESTERASE UA Negative Negative 10/24/2024 1:32 PM CDT [employer] LABORATORY SERVICES - . [facility] NITRITE UA Negative Negative 10/24/2024 1:32 PM CDT [employer] LABORATORY SERVICES - . [facility] PROTEIN UA 1+(A) Negative 10/24/2024 1:32 PM CDT [employer] LABORATORY SERVICES - . [facility] GLUCOSE UA Negative Negative 10/24/2024 1:32 PM CDT [facility] LABORATORY SERVICES [facility] KETONES UA Negative Negative 10/24/2024 1:32 PM CDT [facility] LABORATORY SERVICES [facility] UROBILINOGEN UA Normal <2.0 mg/dL 1:32 PM CDT [facility] LABORATORY [facility] BILIRUBIN UA Negative Negative 10/24/2024 1:32 PM CDT [facility] LABORATORY [facility] BLOOD UA Negative Negative 10/24/2024 1:32 PM CDT [facility] LABORATORY [facility] Comment:Ascorbic acid may ca use false negative results for blood. A microscopic review was reflexed to rule out this interference. WBC UA 0-2 0 - 2 /hpf 10/24/2024 1:32 PM CDT [facility] LABORATORY [facility] RBC UA 0-2 0 - 2 /hpf 10/24/2024 1:32 PM CDT [facility] LABORATORY [facility] BACTERIA UA Negative Negative /hpf 10/24/2024 1:32 PM CDT [facility] LABORATORY [facility] EPITHELIAL CELLS, URINE 0-5 0 - 5 /hpf 10/24/2024 1:32 PM CDT [facility] LABORATORY [facility] Ascorbic Acid UA Positive(A) Negative 025 1:32 PM T [facility] [employer] [facility] Urine URINE SPECIMEN OBTAINED BY CLEAN CATCH PROCEDURE / Unknown Collection / Unknown 10/24/2024 1:18 PM CDT 10/24/2024 1:22 PM CDT Saima GALAVIZ URINE ORDERABLES Final Result [facility] [employer] [facility] CLIA# [id number] [address] [facility] [place] [id number] * (ABNORMAL) VITAMIN B12 AND FOLATE (10/24/2024 6:15 AM CDT) VITAMIN B12 >2,000(H) 232 - 1,245 pg/mL 10/24/2024 7:20 AM CDT [facility] LABORATORY [facility] Comment:It has been reported that between 5 to 10% of patients with values between 200 and 400 pg/mL may experience neuropsychiatric and hematologic abnormalities due to occult B12 deficiency. Less than 1% of patients with values above 400 pg/mL will have symptoms. FOLATE, SERUM 12.3 >4.5 ng/mL 10/24/2024 7:20 AM CDT [facility] LABORATORY SERVICES - [facility] Blood Venipuncture / Unknown 10/24/2024 6:15 AM CDT 10/24/2024 6:27 AM CDT Karen Couch MD CHEMISTRY ORDERABLES Final Result [facility] CLIA# [id number] [address] [place] [address] * (ABNORMAL) IRON, TIBC, AND PERCENT SATURATION (10/23/2024 8:41 PM CDT) Pathologist [facility] IRON 46(L) 59 - 158 ug/dL 10/24/2024 7:14 AM CDT [facility] LABORATORY [facility] TIBC 250 250 - 450 ug/dL 10/24/2024 7:14 AM CDT [facility] LABORATORY [facility] IRON % SATURATION 18(L) 20 - 50 % 10/24/2024 7:14 AM T [facility] LABORATORY [facility] TRANSFERRIN 197(L) 200 - 360 mg/dL 10/24/2024 7:14 AM CDT [facility] LABORATORY SERVICES [facility] Blood Venipuncture / Unknown 10/23/2024 8:41 PM CDT 10/23/2024 8:51 PM CDT Karen Couch MD CHEMISTRY ORDERABLES Final Result [facility] LABORATORY [facility] CLIA# [id number] [address] [place] [address] * (ABNORMAL) FERRITIN (10/23/2024 8:41 PM CDT) FERRITIN 764.0(H) 30.0 - 400.0 ng/mL 10/24/2024 7:14 AM CDT [facility] Blood Venipuncture / Unknown 10/23/2024 8:41 PM CDT 10/23/2024 8:51 PM CDT Karen Couch MD CHEMISTRY ORDERABLES Final Result [id number] [address] [place] [address] * Critical Care (10/23/2024 7:45 PM CDT) [...] or life-threatening deterioration of the following conditions: GYN failure or compromise Critical care was time [...] Res ult from Last 3 Months Insurance [facility] RX [employer] Medicare Part D RX AG PLANS (INTERNAL) [facility] [place] Advance Directives For more information, please contact: [phone] * Full Code (Latest Code Status on [...] 10:21 PM 10/24/2024 8:03 AM Care Teams Clinical Trials Data Coordinator Relationship Specialty Start Date End Date Chaka Colin MD [address] [place] [address] PCP - General Family Practice 08/09/24
--- OUTSIDE RECORDS SUMMARY | 2024-11-27 10:53 | XMS_ITS | Clinical Summary ---
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
--- OUTSIDE RECORDS SUMMARY | 2024-11-27 10:53 | XMS_ITS | Encounter Summary ---
Author Organization [facility] Address [address] [place] [address] Care Team Providers Care Chair Inspector Name Role Phone Chaka Colin MD Primary Care Provider Reason for Visit * Eval and Treat (Routine) - Authorized Specialty Diagnoses / Procedures Referred By Luis ibarra Referred To Contact Diagnoses Secondary malignant neoplasm of brain (CMS/HCC) Procedures [facility]G STEREOTACTIC BODY RADIATION TREATMENT DELIVERY [facility] [address] [place] [address] Phone: tel: fax: [facility] RADIATION THERAPY Referral ID Status Reason Start Date Expiration Date V isits Requested Visits Authorized [id number] Authorized 11/07/2024 02/05/2025 7 7 Encounter Details Date Type Department Care Team (Latest Contact Info) Description 11/26/2024 2:23 PM CDT - 11/26/2024 11:59 PM CDT Hospital Encounter [facility] Radiation Therapy [address] [place] [address] Jono Edouard MD [address] 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 A simple simulation was performed on the Fridgeknife unit utilizing the integrated kV imaging platform for isocenter verification and confirmation of plan deliverability (collision check). PATIENT ASSESSMENT: No complaints. He is ready for treatment EQUIPMENT USED: Simulation was performed on the Fridgeknife linear accelerator. PROCEDURE DETAILS: This simulation was performed prior to the first stereotactic radiotherapy fraction. The patient was placed on the Robocouch treatment bed with their head immobilized with the Qfix mask in treatment position. The couch then moved the patient's head into an approximate treatment position. Using the in-room orthogonal X-ray array, the Robocouch position was adjusted to align with the target. Additional orthogonal x-rays were taken to confirm precise alignment. The patient safety zone was then checked by the therapist with the accurAdisn wand and no areas of potential collision were identified. ASSESSMENT: The isocenter alignment process was successful and there were no collision issues with any of the planned beams. ORDERS: Proceed with stereotactic radiotherapy treatment as planned. STEREOTACTIC RADIOSURGERY PROCEDURE DIRECTIVE: Treatment Site = PTV 1.1 Fraction #2 of 5 Dose per Fraction = 600 cGy Planned Total Dose = 3000 cGy PREMEDICATION: Decadron 4 mg BID PROCEDURE DETAILS: After the above simulation procedure was completed, treatment was delivered as planned. Orthogonal x-rays were used to monitor patient position every 20-40 seconds during treatment using skull tracking. Treatment was delivered as planned. The patient tolerated treatment well. SCHEDULING: Return for next radiosurgery fraction as planned. Jono Edouard MD * Jono Edouard MD - 11/26/2024 2:30 PM CDT Procedure Date: 11/26/2024 STEREOTACTIC RADIOSURGERY (SRS) SIMULATION AND PROCEDURE NOTE AND COLLISION CHECK SIMULATION FOR ISOCENTER VERIFICATION PURPOSE: The patient initially underwent virtual CT simulation for stereotactic radiosurgery. A simple simulation was performed on the Cyberknife unit utilizing the integrated kV imaging platform for isocenter verification and confirmation of plan deliverability (collision check). PATIENT ASSESSMENT: No complaints. EQUIPMENT USED: Simulation was performed on the CyberknLopoly linear accelerator. PROCEDURE DETAILS: This simulation was performed prior to the first stereotactic radiotherapy fraction. The patient was placed on the Robocouch treatment bed with their head immobilized with the Qfix mask in treatment position. The couch then moved the patient's head into an approximate treatment position. Using the in-room orthogonal X-ray array, the Robocouch position was adjusted to align with the target. Additional orthogonal x-rays were taken to confirm precise alignment. The patient safety zone was then checked by the therapist with the accurAdisn wand and no areas of potential collision were identified. ASSESSMENT: The isocenter alignment process was successful and there were no collision issues with any of the planned gantry and couch angles. ORDERS: Proceed with stereotactic radiotherapy treatment as planned. STEREOTACTIC RADIOSURGERY PROCEDURE DIRECTIVE: Treatment Site = PTVs 1.2-1.5 Fraction #2 of 3 Dose per Fraction = 900 cGy Planned Total Dose = 2700 cGy PROCEDURE DETAILS: After the above simulation procedure was completed, treatment was delivered as as planned. Orthogonal x-rays were used to monitor patient position (using skull tracking ) every 20-40 seconds during treatment. Treatment was delivered as planned. The patient tolerated treatment well. SCHEDULING: Return for next radiosurgery fraction as planned. Jono Edouard MD documented in this encounter Plan of Treatment Upcoming Encounters Date Type Department Care Team (Late st Contact Info) Description 11/28/2024 2:00 PM CDT Appointment [facility] Radiation Therapy [address] [place] [address] Jono Edouard MD [address] [facility] [address] [place], [place] [id number] 11/30/2024 12:30 PM CDT Appointment [facility] Radiation Therapy [address] [place] [address] Jono Edouard MD [address] [address] 12/04/2024 12:30 PM CDT Appointment [facility] Radiation Therapy [address] [place] [address] Jono Edouard MD [address] [place] [address] 12/19/2024 9:00 AM CDT Office Visit [facility] - [place] [address] [address] Agustin Brown MD [address] [facility] [address] [place] [address] 01/18/2025 12:45 PM CDT Appointment [facility] Medicine MRI [address] [facility] [address] [place] [address] Dianna Reid PA [address] [facility] [place], [place] [id number] 01/21/2025 1:00 PM CDT Office Visit [facility] Neuro[facility] - Medical [facility] [address] [facility] [address] [place] [address] Ad Chang MD [address] [facility] [address] [address] -x0 (Work) documented as of this encounter Visit Diagnoses Not on filedocumented in this encounter Care Teams Chair Inspector Relationship Specialty Start Date End Date Chaka Colin MD [address] [facility] [place] [address] PCP - General Family Practice 08/09/24 documented as of this encounter
--- OUTSIDE RECORDS SUMMARY | 2024-11-27 10:53 | XMS_ITS | Referral Summary ---
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
--- OUTSIDE RECORDS SUMMARY | 2024-11-27 10:53 | XMS_ITS | Clinical Summary ---
Author Organization [facility] Address [address] [facility] [place] [address] Care Team Providers Care Group Home Counselor Name Role Phone Almas Stapleton MD Unavailable [phone] Alejandro Kellogg DO Primary Care Provider [phone] Source Comments [facility],non-owned Affiliates and Associated Physician Practices is amultiple site organization consisting of ambulatory clinics and hospital sitesin [place], [place], [place] and [place]. This disclosure is being madepursuant to the [...] Encounters Date Type Department Care Team Description 11/22/2024 Lab Requisition [facility] - Pathology Lab [address] [place] [address] Abdiaziz Hobson MD Pleural effusion, not elsewhere classified from Last 3 Months Immunizations Immunization Administration [...] on file Legal Sex Male 12:44 PM BUNCHER HAND Gender Identity Not on file Sexual Orientation Not on file Last Filed Vital Signs Vital Sign Reading Time Taken Comments Blood Pressure 117/74 09/04/2012 6:06 AM BUNCHER HAND Pulse 78 09/04/2012 6:06 AM BUNCHER HAND Temperature 36.9 C (98.4 F) 09/04/2012 6:06 AM BUNCHER HAND Respiratory Rate 18 09/04/2012 6:06 AM BUNCHER HAND Oxygen Saturation 98% 09/04/2012 6:06 AM BUNCHER HAND Inhaled Oxygen Concentration - - Weight 88.4 kg (194 lb 12.8 oz) 09/01/2012 7:04 AM BUNCHER HAND Height 175.3 cm (5' 9 ) 09/01/2012 7:04 AM BUNCHER HAND Body Mass Index 28.77 09/01/2012 7:04 AM BUNCHER HAND Plan of Treatment Health Maintenance Due Date [...] patient's age to complete this topic Insurance [facility] [employer] ADV PPO SELF PAY NO INSURANCE Member Subscriber Plan / Payer (Ef fective for All Dates) Name:Almas Elias Member ID:Not on file Relation to Subscriber:Not on file Name:ALMAS ELIAS Subscriber ID:Not on file (Home) Address: [address] [place] [address] Payer ID:Not on file Group ID:Not on file Type:Self Pay Address: [place], [place] [employer] [id number] [employer] [address] [place] [address] Advance Directives Documents on File Type Date Recorded 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
--- OUTSIDE RECORDS SUMMARY | 2024-11-27 10:53 | XMS_ITS | Encounter Summary ---
Author Organization [facility] Address [address] [facility] [place] [address] Care Team Providers Care Heavy Equipment Plumbing Supervisor Name Role Phone Almas Stapleton MD Unavailable Alejandro Kellogg DO Primary Care Provider [phone] Encounter Details Date Type Department Care Team (Late st Contact Info) Description 11/22/2024 Lab Requisition [facility] - Pathology Lab [address] [place] [address] Abdiaziz Hobson MD [address] [address] Pleural effusion, not elsewhere classified Social History Tobacco Use Types Packs/Day Years Used Date Smoking Tobacco: Former Cigarettes 1 25 0 07/11/1971 - 07/11/1996 Smokeless Tobacco: Never Alcohol Use Standard Drinks/Week Comments Yes 22.5 (1 standard drink = 0.6 oz pure alcohol) 2 drinks/day Sex and Gender Information Value Date Recorded Sex Assigned at Not on file 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 Gender Identity Not on file Sexual Orientation Not on file documented as of this encounter Plan of Treatment Pending Results Name Type Priority Associated Diagnoses Date /Time SLIDE PREP HISTOLOGY Pathology Cytology Routine Pleural effusion, not elsewhere classified 11/21/2024 12:00 PM CDT documented as of this encounter Visit Diagnoses Diagnosis Pleural effusion, not elsewhere classified documented in this encounter Care Teams Heavy Equipment Plumbing Supervisor Relationship Specialty Start Date End Date Alejandro Kellogg DO [address] [place] [address] PCP - General 02/23/22 Almas Stapleton MD Orthopedic Surgery 09/01/11 documented as of this encounter
--- OUTSIDE RECORDS SUMMARY | 2024-11-27 10:53 | XMS_ITS ---
Author [facility] Address [address] [place] [address] Care Team Providers Care Felt Cutting Machine Operator Name Role Phone Chaka Colin MD [...]
[2024-11-27 11:05] LABS: NT Pro B Type Natriuretic Pept 1790 pg/mL (19.9-100); Troponin I 0.065 ng/mL (0.000-0.034)
--- NOTE | 2024-11-27 11:28 | ECG_ITS ---
Test Date: 2024-11-27 13:20:41 Measurements Intervals Rentz Rate: 99 P: 37 NE: 160 QRS: 12 QRSD: 86 T: 32 QT: 331 QTc: 426 Interpretive Statements SINUS RHYTHM Compared to ECG 11/27/2024 10:10:30 Sinus tachycardia no longer present Electronically Signed On 11-27-2024 13:45:34 CDT by Clive Glez M.D.
[2024-11-27 11:33] LABS: Influenza A QL RT-PCR Negative (Negative); Influenza B QL RT-PCR Negative (Negative); RSV RNA, RT-PCR Negative (Negative); SARS-CoV-2 RNA PCR Negative (Negative)
[2024-11-27] MEDS: AZITHROMYCIN 500 MG/NS 250 ML 500 MG/250 ML BAG 250 MG IVPB (12:26)
[2024-11-27 12:34] LABS: Reflex Lactic Acid Yes or No Add Lactic
[2024-11-27 13:07] LABS: MRSA (PCR) NOT DETECTED (NOT DETECTE)
[2024-11-27 13:25] LABS: Lactic Acid Reflex 1.6 mmol/L (0.7-2.0)
[2024-11-27] MEDS: VANCOMYCIN 2,000 MG/NS 500 ML 2,000 MG/500 ML BAG 250 MG IVPB (13:31)
[2024-11-27 13:41] LABS: Troponin I 0.066 ng/mL (0.000-0.034)
--- NOTE | 2024-11-27 15:56 | PC.NURSE ---
pt to ultrasound at 1550 with ED respiratory and US tech. pt on monitor and on BiPAP
--- NOTE | 2024-11-27 16:22 | PC.NURSE ---
ultrasound reports that roughly 300ml were taken off during thoracentesis.
--- NOTE | 2024-11-27 16:22 | PC.NURSE ---
pt back to ED room 14 at 1621 from US.
--- NOTE | 2024-11-27 17:10 | PC.NURSE ---
called report to TONNY Arreola at 1704 at [facility]. all questions answered,
--- NOTE | 2024-11-27 18:53 | PC.NURSE ---
pt gets transferred to [facility] on [address] via [facility] ems on BiPAP, with chart, and with belongings.
== END 2024-11-27 18:05 | disposition short-term general hospital (02) ==
PROVIDERS: Emergency Provider Physician Assistant; PCP Family Medicine
DX: J96.01 Acute respiratory failure with hypoxia (principal); J90 Pleural effusion, not elsewhere classified; J18.9 Pneumonia, unspecified organism; C61 Malignant neoplasm of prostate; C78.7 Secondary malignant neoplasm of liver and intrahepatic bile duct; C34.90 Malignant neoplasm of unspecified part of unspecified bronchus or lung; C78.00 Secondary malignant neoplasm of unspecified lung; C79.31 Secondary malignant neoplasm of brain; C79.51 Secondary malignant neoplasm of bone; E87.20 Acidosis, unspecified; R79.89 Other specified abnormal findings of blood chemistry; Z20.822 Contact with and (suspected) exposure to COVID-19; E78.5 Hyperlipidemia, unspecified; R73.03 Prediabetes; M17.9 Osteoarthritis of knee, unspecified; Z99.81 Dependence on supplemental oxygen; Z96.1 Presence of intraocular lens; Z98.42 Cataract extraction status, left eye; Z98.41 Cataract extraction status, right eye; Z87.891 Personal history of nicotine dependence; Z79.84 Long term (current) use of oral hypoglycemic drugs; Z79.899 Other long term (current) drug therapy; R00.0 Tachycardia, unspecified
CPT/HCPCS: 32555; 36415; 36600; 71275; 80053; 82375; 82805; 83050; 83605; 83735; 83880; 84484; 85018; 85025; 85610; 85730; 87040; 87637; 87641; 93005; 96365; 96366; 96367; 96368; 99285; J0456; J0696; J3370; Q9967